=== PATIENT | female | born 1950 | race Caucasian/White ===

== ENCOUNTER 2023-01-15 20:05 | Inpatient (IN) | payer MEDICARE, SELFPAY ==
[2023-01-15 20:06] VITALS: BP 195/108; PULSE 59; RESP 18; TEMP 36.2; O2SAT 96; BMI 26.5
--- NOTE | 2023-01-15 20:08 | EKG12_ITS ---
Test Reason : FALL Blood Pressure : / mmHG Vent. Rate : 078 BPM Atrial Rate : 234 BPM P-R Int : 000 ms QRS Dur : 102 ms QT Int : 446 ms P-R-T Axes : 000 021 133 degrees QTc Int : 508 ms 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 with variable A-V block Left ventricular hypertrophy with repolarization abnormality ( Riley product ) Cannot rule out Septal infarct , age undetermined Abnormal ECG Confirmed by GABY SAVAGE, ALISA ([id number]), video tape editor JONY ALVAREZ ([id number]) on 01/18/2023 6:22:02 AM Referred By: Confirmed By:LIAM GRIFFIN MD
--- NOTE | 2023-01-15 20:16 | EDS_ITS ---
HPI HPI - Fall History of Present Illness Chief Complaint: Fall Informant: patient and EMS Narrative Narrative: Presents to the ED by EMS from home. Reported a fall around 6 PM. She hit her head on the stove. She got up felt dizzy had a couple more falls. Injury to her left hand. She is on warfarin for history of A-fib. History of three- vessel cardiac bypass this past April on aspirin. Denies loss of conscious. Facial pain. Denies nausea or vomiting. Denies recent cough. Denies urinary symptoms. She lives alone. Ambulates with a cane and does have a walker. She called her son who came and checked on her and EMS was contacted. States a week ago had a fall where she was able to get herself up. [facility] Medical History Afib Diabetes HTN (hypertension) Home Medications amiodarone 200 mg tablet mg 01/15/23 [History Last Taken Unknown] amlodipine 10 mg tablet 10 mg PO DAILY 01/15/23 [History Last Taken Unknown] atorvastatin 40 mg tablet 40 mg PO DAILY 01/15/23 [History Last Taken Unknown] carbamazepine 200 mg tablet 400 mg PO BID 01/15/23 [History Last Taken Unknown] clonidine HCl 0.3 mg tablet 0.3 mg PO TID 01/15/23 [History Last Taken 01/15/23] hydralazine 100 mg tablet 100 mg PO TID 01/15/23 [History Last Taken 01/15/23] labetalol 100 mg tablet 100 mg PO BID 01/15/23 [History Last Taken Unknown] ofloxacin 0.3 % eye drops 1 drp ophthalmic (eye) DAILY 01/15/23 [History Last Taken Unknown] valsartan 160 mg tablet 160 mg PO BID 01/15/23 [History Last Taken Unknown] warfarin 2.5 mg tablet mg 01/15/23 [History Last Taken Unknown] Allergy/AdvReac Type Severity Reaction Status Date / Time ibuprofen Allergy Rash Verified 01/15/23 20:14 naproxen [From Naprosyn] Allergy Rash Verified 01/15/23 20:14 codeine AdvReac Other Verified 01/15/23 20:14 Social History Smoking Status: Current every day smoker tobacco type: cigarettes ROS ROS ED Constitutional Constitutional ED: Denies chills, fever(s) or sweats Eyes Eyes: Denies change in vision ENT ENT ED: Reports other Details: Facial pain ; Denies dysphagia or sore throat Cardiovascular Cardiovascular: Denies chest pain, leg edema, palpitations or racing heartbeat Respiratory/Chest Respiratory/Chest: Denies cough, dyspnea or dyspnea on exertion Gastrointestinal Gastrointestinal: Denies abdominal pain, diarrhea, nausea or vomiting Genitourinary Genitourinary ED: Denies dysuria, hematuria or urinary frequency Musculoskeletal Musculoskeletal: Denies back pain, extremity pain or neck pain Integumentary Denies rash or wounds Neurologic Neurologic: Reports other Details: Dizziness ; Denies headache(s), paresthesias or weakness EXAM Physical Exam Const Vital Signs: 01/15/23 20:06 01/15/23 20:25 Temperature 97.1 F L Temperature Source Temporal Pulse Rate 59 L Respiratory Rate 18 Respiratory Effort Normal Blood Pressure 195/108 H Blood Pressure Mean 137 Pulse Ox 96 Oxygen Delivery Method Room Air Room Air Positive well nourished and well developed Constitutional Narrative: GCS 15. General Appearance ED: well developed and NAD HEENT Reports moist mucous membranes HEENT Narrative: Contusion right zygomatic area, there is dried blood inferior however there is no laceration there. No hemotympanums. normocephalic Eyes PERRL, EOMs intact bilaterally and conjunctivae normal Eyes Narrative: No nystagmus General Eye ED: Yes normal appearance of both eyes Neck full ROM, no lymphadenopathy and supple General: Negative for tenderness Chest Wall inspection of chest normal and palpation of chest normal Chest: Negative for tenderness Resp normal respiratory effort and normal air movement Effort and Inspection: symmetric chest movement; Negative for respiratory distress Cardio regular rate and no murmurs Rhythm: abnormal rhythm Peripheral Pulses: pulses 2+ throughout GI normal to inspection, nondistended, normoactive bowel sounds and non-tender Palpation: Negative for guarding or rebound tenderness present Back/Spine no CVA tenderness and no thoracic nor lumbar tenderness Back/Spine Narrative: No step-offs of the thoracic or lumbar 9. Extremity Extremity Narrative: Lower extremities: Negative logroll full range of motion lower extremities. Upper extremities full range of motion, left hand ring finger noted superficial skin tear proximal phalanx, there is no active bleeding. No deformities. General Extremety ED: Negative for edema or tenderness General Extremity: Negative for edema Neuro oriented x3, CN's II-XII intact bilaterally and no sensory deficits noted Sensorium / Orientation: awake and alert Skin no rashes or lesions noted and no wounds MDM MDM MDM Narrative Medical decision making narrative: Interventions / MDM: Differential diagnosis: Facial contusion, dizziness, elevated blood pressure Diagnosis considered but do not suspect: Intracranial hemorrhage, fractures however CT negative. My EKG interpretation: 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 rate of 78, no ST or T wave changes. Imaging independently reviewed and interpreted by myself: CT head/face/cervical spine: No fractures. Soft tissue swelling. No intracranial hemorrhage. Left hand 3 views: No fracture or radiopaque foreign bodies. External documents reviewed: N/A Test considered but not ordered:N/A ED course: Patient rate controlled a flutter, blood pressure elevated. Reported dizziness symptoms causing multiple falls. There is no focal deficits no nystagmus. She is on warfarin. Trauma scans head face and neck was ordered. X-ray left hand. Check labs and urine. 2200: Trauma scans negative. X-ray negative. Blood pressure remained elevated reevaluation systolic 205 history significant hypertension on medication she has had a renal artery stent. She is due for clonidine and hydralazine this evening. This was ordered orally for her. Urine was negative for both. With ambulation, patient unsteady per nursing. She has had multiple falls. She is currently not dizzy. 2225: With multiple falls unsteady gait, discussed with hospitalist Dr. Almanza for admission. Re-evaluation: stable Disposition discussed with patient/family/significant other: Case discussed with consulting clinician: N/A This note was generated with [employer] dictation software. It may contain incorrect words, spelling, and punctuation that were not noted in checking the note before signing. Lab Data Labs: Laboratory Results - last 24 hr 01/15/23 01/15/23 20:25 21:15 WBC 7.7 RBC 4.57 Hgb 14.6 Hct 42.2 MCV 92.3 MCH 31.9 MCHC 34.6 RDW Std Deviation 43.4 RDW Coeff of [place] 12.8 Plt Count 226 MPV 9.5 Immature Gran % (Auto) 0.600 Neut % (Auto) 75.9 H Lymph % (Auto) 16.2 L [place] % (Auto) 5.4 Eos % (Auto) 1.0 Baso % (Auto) 0.9 Absolute Neuts (auto) 5.9 Absolute Lymphs (auto) 1.25 Nucleated RBC % 0 PT 20.7 H INR 1.8 APTT 32.0 Sodium 137 Potassium 3.5 Chloride 102 Carbon Dioxide 32.0 Anion Gap 3 L BUN 12 Creatinine 0.72 Estim Creat Clear Calc 39.63 Est GFR (MDRD) Af Amer 103 Est GFR (MDRD) Non-Af 85 BUN/Creatinine Ratio 16.8 Glucose 126 H Calcium 8.8 Urine Color Yellow Urine Clarity Sl. Cloudy Urine pH 8.0 Ur Specific [place] 1.015 Urine Protein 15 H Urine Glucose (UA) Normal Urine Ketones Negative Urine Occult Blood 10 H Urine Nitrite Negative Urine Bilirubin Negative Urine Urobilinogen Normal Ur Leukocyte Esterase Negative Urine RBC 0-5 SEEN Urine WBC 0-5 SEEN Ur Squamous Epith Cells 0-5 SEEN Urine Bacteria 0 SEEN Urine Mucus 0 SEEN Radiography Diagnostic Testing: Clinical Impression(s) from Imaging Studies Brain CT 01/15/23 20:40 IMPRESSION: Chronic involutional changes of the brain. Electronically Signed: Taj Smith MD at 21:15 EST Reading Location ID and State: [employer] , Service support , Cervical Spine CT 01/15/23 20:40 IMPRESSION: No acute fracture or subluxation. Electronically Signed: Taj Smith MD at 21:31 EST Reading Location ID and State: [employer] , Service support , Facial/Sinus 01/15/23 20:40 IMPRESSION: Normal unenhanced CT of the facial bones. Acute right sphenoid sinusitis. Electronically Signed: Taj Smith MD at 21:20 EST Reading Location ID and State: [employer] [facility] [employer] Tel , Service support , Hand X-Ray 01/15/23 20:45 IMPRESSION: No acute fracture or dislocation Electronically Signed: Taj Smith MD at 21:34 EST Reading Location ID and State: [employer] / [employer] Tel , Service support , Discharge Plan Triage Chief Complaint: Fall ED Provider: Johnathon Richardson Dx/Rx/DC Orders Clinical Impression: Abrasion of left ring finger, 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, chronic, Unsteady gait, Chronic anticoagulation, Multiple falls, Contusion of face, Hypertension Prescriptions: No Action amiodarone 200 mg tablet amlodipine 10 mg tablet 10 mg PO DAILY atorvastatin 40 mg tablet 40 mg PO DAILY carbamazepine 200 mg tablet 400 mg PO BID clonidine HCl 0.3 mg tablet 0.3 mg PO TID Patient Comments: TOOK 2X TODAY hydralazine 100 mg tablet 100 mg PO TID Patient Comments: HAS TAKEN 2 DOSES TODAY labetalol 100 mg tablet 100 mg PO BID ofloxacin 0.3 % drops 1 drp ophthalmic (eye) DAILY Patient Comments: TO LEFT EYE valsartan 160 mg tablet 160 mg PO BID warfarin 2.5 mg tablet Patient Comments: DOES NOT KNOW DOSE. Primary Care Provider: Ian Burns Referrals: Ian Burns MD [Primary Care Provider] - Disposition Disposition: Acute Care Hospital [facility]
[2023-01-15 20:38] LABS: Absolute Lymphocyte Count 1.25 X10^3/uL (0.83-4.51); Absolute Neutrophil Count 5.9 X10^3/uL (2.0-7.7); Basophil# 0.07 X10^3/uL; Basophil% 0.9 % (0-1); Eosinophil# 0.08 X10^3/uL; Hematocrit 42.2 % (37-47); Hemoglobin 14.6 g/dL (12.0-15.0); Lymphocyte # 1.25 X10^3/ul (0.83-4.51); Lymphocyte % 16.2 % (19-41); Mean Corp Hgb Conc 34.6 g/dL (32-36); Mean Corpuscular Hgb 31.9 pg (27.0-32.0); Mean Corpuscular Volume 92.3 fL (81-99); Mean Platelet Vol. 9.5 fl (6.2-12.0); Monocyte# 0.42 X10^3/uL; Monocyte% 5.4 % (0-10); NRBC Flagged by Analyzer 0 % (0-5); Neutrophil # 5.86 X10^3/uL (2.7-7.7); Neutrophil % 75.9 % (47-70); Platelet Count 226 K/mm3 (150-450); RBC Distribution Width CV 12.8 % (11.6-14.6); RBC Distribution Width SD 43.4 fl (35.1-43.9); Red Blood Count 4.57 M/mm3 (4.2-5.4); White Blood Count 7.7 K/mm3 (4.4-11.0)
--- NOTE | 2023-01-15 20:40 | CT_ITS ---
STUDY: CT FACIAL BONES WITHOUT CONTRAST REASON FOR EXAM: Female, 72 years old. trauma RADIATION DOSAGE (If Supplied By Facility): CTDIvol = ( 29.38 ) mGy, DLP = ( 598.88 ) mGycm TECHNIQUE: The patient was scanned in a multi detector CT scanner. Sagittal and coronal images were reconstructed. Individualized dose optimization techniques were used for this CT. COMPARISON: None. FINDINGS: Normal soft tissue structures. Normal orbital bae and orbital contents. Normal nasal bones and anterior nasal spine. Normal facial bones. There is no demonstrated fracture. Air-fluid level in the right sphenoid sinus consistent with acute sinusitis. CT/Sinus/Facial Bone IMPRESSION: Normal unenhanced CT of the facial bones. Acute right sphenoid sinusitis. Electronically Signed: Taj Smith MD at 21:20 EST ,
--- NOTE | 2023-01-15 20:40 | CT_ITS ---
STUDY: CT BRAIN WITHOUT CONTRAST REASON FOR EXAM: Female, 72 years old. head injury RADIATION DOSAGE (If Supplied By Facility): CTDIvol = ( 44.99 ) mGy, DLP = ( 779.24 ) mGycm TECHNIQUE: Transaxial CT imaging of the brain was performed without administration of intravenous contrast material. Individualized dose optimization techniques were used for this CT. COMPARISON: No relevant priors. FINDINGS: Normal soft tissue structures. Normal calvarium. There is moderate cerebral atrophy with widening of the extra-axial spaces and ventricular dilatation. There are areas of decreased attenuation within the white matter tracts of the supratentorial brain, consistent with microvascular disease changes. There are small punctate calcifications of the basal ganglia which are seen in the aging brain as a normal variant. Chronic lacunar infarct in the head of the right caudate nucleus. Normal brainstem. Normal cerebellum. There is no intracranial hemorrhage. There are no findings of an acute ischemic infarction. Normal visualized paranasal sinuses. CT/Brain/Head without Contrast IMPRESSION: Chronic involutional changes of the brain. Electronically Signed: Taj Smith MD at 21:15 EST ,
--- NOTE | 2023-01-15 20:40 | CT_ITS ---
STUDY: CT CERVICAL SPINE WITHOUT CONTRAST REASON FOR EXAM: Female, 72 years old. polytrauma RADIATION DOSAGE (If Supplied By Facility): CTDIvol = ( 16.73 ) mGy, DLP = ( 322.69 ) mGycm TECHNIQUE: High resolution transaxial imaging was performed without contrast material. Sagittal and coronal images were reconstructed. Individualized dose optimization techniques were used for this CT. COMPARISON: None FINDINGS: Normal craniovertebral junction. Normal anterior atlantoaxial articulation. Normal odontoid process. There is straightening of the normal cervical lordosis. Normal vertebral bodies and posterior osseous elements. C2-3: Normal endplates. Normal disc height and morphology. Normal central canal and intervertebral neuroforamina. C3-4: Large right paracentral and foraminal disc protrusion produces moderate spinal stenosis and moderate right neural foraminal stenosis. C4-5: Normal endplates. Normal disc height and morphology. Normal central canal and intervertebral neuroforamina. C5-6: Mild broad disc osteophyte complex produces mild spinal stenosis. No neural foraminal stenosis. C6-7: Mild broad disc protrusion produces mild spinal stenosis. No neural foraminal stenosis. C7-T1: Normal endplates. Normal disc height and morphology. Normal central canal and intervertebral neuroforamina. Normal visualized soft tissue structures. CT/Spine Cervical without Contras IMPRESSION: No acute fracture or subluxation. Electronically Signed: Taj Smith MD at 21:31 EST ,
--- NOTE | 2023-01-15 20:45 | RAD_ITS ---
STUDY: X-RAY - LEFT HAND REASON FOR EXAM: Female, 72 years old. injury TECHNIQUE: 3 view(s) of the hand. COMPARISON: None. FINDINGS: Normal radiocarpal articulation. Normal distal radioulnar joint. Normal visualized carpal bones. Normal carpal articulations There is degenerative arthrosis of the carpometacarpal (CMC) articulation of the thumb. Normal second through fifth carpometacarpal joints. Normal metacarpi. Normal metacarpophalangeal joint of the thumb. Normal interphalangeal joint of the thumb. Normal proximal and distal phalanges of the thumb. Normal metacarpophalangeal joints of the second through fifth fingers. There is diffuse articular joint space narrowing of the proximal and distal interphalangeal joints of the second through fifth fingers, but without erosive changes or periarticular soft tissue swelling. Normal phalanges of the second through fifth fingers. The soft tissue structures are unremarkable. RAD/Hand Min 3 Views IMPRESSION: No acute fracture or dislocation Electronically Signed: Taj Smith MD at 21:34 EST ,
[2023-01-15 20:51] LABS: Anion Gap 3 (5-15); BUN 12 mg/dL (7-18); BUN/Creat Ratio 16.8 RATIO (10-20); Calcium,Total 8.8 mg/dL (8.5-10.1); Chloride 102 mmol/L (98-107); Creatinine, Serum 0.72 mg/dL (0.55-1.02); EST Glomerular Filtration Rate 85 mL/min (>60); Est Glom Filt Rate - Afr Amer 103 mL/min (>60); Estimated Creatinine Clearance 39.63 ml/min; Glucose 126 mg/dL (74-106); Potassium 3.5 mmol/L (3.5-5.1); Sodium Level 137 mmol/L (136-145)
[2023-01-15 21:07] LABS: International Normalized Ratio 1.8; Prothrombin Time (Protime)PT. 20.7 SECONDS (11.7-14.9)
[2023-01-15] MEDS: 0.9% Normal Saline (500mL Bag) 500 ML 999 ML IV (21:19)
[2023-01-15] MEDS: Acetaminophen 500 MG Tablet 1000 MG PO (21:19)
[2023-01-15 21:31] LABS: Bacteria 0 SEEN /hpf (None Seen); Mucous, Urine 0 SEEN /hpf (<or=2+)
[2023-01-15 21:51] LABS: Color, Urine Yellow (Yellow); Glucose, Dipstick Normal (Normal); Ketone-Dipstick Negative (Negative); Leukocyte Esterase-Dipstick Negative /ul (Negative); Nitrite-Dipstick Negative (Negative); Occult Blood-Urine 10 /ul (Negative); Protein-Dipstick 15 mg/dl (Negative); Specific Gravity, Urine 1.015 (1.002-1.030); Urine Bilirubin Dipstick Negative (Negative); Urine Clarity Sl. Cloudy (Clear); Urine Urobilinogen Normal (Normal)
[2023-01-15 22:04] LABS: Red Blood Cells-Urine 0-5 SEEN /hpf (0-5); Squamous Epithelial Cells - UA 0-5 SEEN /hpf (5-10); White Blood Cells 0-5 SEEN /hpf (0-5)
[2023-01-15 22:06] VITALS: BP 211/154; PULSE 88; PULSE 93; RESP 18; RESP 21; O2SAT 96; O2SAT 97
[2023-01-15] MEDS: hydrALAZINE 50 MG Tablet 100 MG PO (22:15)
[2023-01-15] MEDS: Clonidine HCl 0.1 MG, Clonidine HCl 0.2 MG 0.3 MG PO (22:15)
--- NOTE | 2023-01-15 22:37 | HP.PCM.HOS_ITS ---
HPI - General General Date of Admission: 01/15/23 Date of Service: 01/15/23 Chief Complaint: Recurrent falls HPI Narrative MARK MARTIN, is a 72 F with past medical history of A-fib on warfarin, hypertension, coronary artery disease s/p recent CABG, renal artery stenosis s/p stenting, seizure disorder presented to the ED following a fall around 6 PM. She lives by herself and has been having repeated episodes of falling in the last few days. There were no preceding symptoms, does not remember having blackouts or sensation of palpitations before. No prodromal symptoms no post fall confusion. She ambulates with a cane but does have a walker. Her home medications include amiodarone, atorvastatin, carbamazepine, clonidine, hydralazine, labetalol, valsartan, warfarin 2.5 mg. Her blood pressure at the time of presentation was 195/108, pulse rate was 59 EKG was suggestive of atrial flutter. At home she continues to smoke half to 1 pack of cigarettes daily. Labs in the ED WBC 7.7, hemoglobin 14.6, platelet 226, INR 1.8, creatinine 0.7, CT brain showed chronic involutional changes no acute changes. No fracture or subluxation on cervical spine CT. CT of facial bones showed acute right sphenoid sinusitis. Interval events After control her blood pressure in the ED, she was able to ambulate better, s ubjectively her dizziness had improved remarkably. [facility] Medical History (Updated 01/15/23 @ 23:59 by Whitley Johnson) Afib Anemia 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 COPD (chronic obstructive pulmonary disease) Deafness in left ear Depression Diabetes GERD (gastroesophageal reflux disease) HTN (hypertension) Irregular heart beat Myocardial infarct Rheumatoid arthritis Right renal artery stenosis Seizures Stroke/cerebrovascular accident Home Medications amiodarone 200 mg tablet mg 01/15/23 [History Last Taken Unknown] amlodipine 10 mg tablet 10 mg PO DAILY 01/15/23 [History Last Taken Unknown] atorvastatin 40 mg tablet 40 mg PO DAILY 01/15/23 [History Last Taken Unknown] carbamazepine 200 mg tablet 400 mg PO BID 01/15/23 [History Last Taken Unknown] clonidine HCl 0.3 mg tablet 0.3 mg PO TID 01/15/23 [History Last Taken 01/15/23] hydralazine 100 mg tablet 100 mg PO TID 01/15/23 [History Last Taken 01/15/23] labetalol 100 mg tablet 100 mg PO BID 01/15/23 [History Last Taken Unknown] ofloxacin 0.3 % eye drops 1 drp ophthalmic (eye) DAILY 01/15/23 [History Last Taken Unknown] valsartan 160 mg tablet 160 mg PO BID 01/15/23 [History Last Taken Unknown] warfarin 2.5 mg tablet mg 01/15/23 [History Last Taken Unknown] Allergy/AdvReac Type Severity Reaction Status Date / Time ibuprofen Allergy Rash Verified 01/15/23 20:14 naproxen [From Naprosyn] Allergy Rash Verified 01/15/23 20:14 codeine AdvReac Other Verified 01/15/23 20:14 Surgical History (Updated 01/16/23 @ 00:04 by Whitley Johnson) Aortic valve replaced Hx of CABG Social History Smoking Status: Current every day smoker tobacco type: cigarettes Vital Signs Vital Signs Vital Signs: 01/15/23 20:06 01/15/23 20:25 01/15/23 22:06 Temperature 97.1 F L Temperature Source Temporal Pulse Rate 59 L 93 Respiratory Rate 18 21 H Respiratory Effort Normal Blood Pressure 195/108 H Blood Pressure Mean 137 Pulse Ox 96 97 Oxygen Delivery Method Room Air Room Air Room Air 01/15/23 22:06 Temperature Temperature Source Pulse Rate 88 Respiratory Rate 18 Respiratory Effort Blood Pressure 211/154 H Blood Pressure Mean 173 Pulse Ox 96 Oxygen Delivery Method Weight Weight: 145 lb 1.027 oz Body Mass Index (BMI) 26.5 Physical Exam Const alert and oriented x3 HEENT normocephalic Eyes PERRL Neck no lymphadenopathy Resp normal respiratory effort Cardio S1 normal heart sound, S2 normal heart sound and no murmurs GI normal to inspection, nondistended, normoactive bowel sounds Extremity normal to inspection Neuro oriented x3, CN's II-XII intact bilaterally, moves all extremities and no focal motor deficits Psych affect normal Results Medical Records Data Attestation: I reviewed the patient's medical records Lab / Micro Data 01/15/23 20:25 01/15/23 20:25 Labs: Laboratory Results - last 24 hr 01/15/23 20:25: WBC 7.7, RBC 4.57, Hgb 14.6, Hct 42.2, MCV 92.3, MCH 31.9, MCHC 34.6, RDW Std Deviation 43.4, RDW Coeff of [place] 12.8, Plt Count 226, MPV 9.5, Immature Gran % (Auto) 0.600, Neut % (Auto) 75.9 H, Lymph % (Auto) 16.2 L, [place] % (Auto) 5.4, Eos % (Auto) 1.0, Baso % (Auto) 0.9, Absolute Neuts (auto) 5.9, Absolute Lymphs (auto) 1.25, Nucleated RBC % 0, PT 20.7 H, INR 1.8, APTT 32.0, Sodium 137, Potassium 3.5, Chloride 102, Carbon Dioxide 32.0, Anion Gap 3 L, BUN 12, Creatinine 0.72, Estim Creat Clear Calc 39.63, Est GFR (MDRD) Af Amer 103, Est GFR (MDRD) Non-Af 85, BUN/Creatinine Ratio 16.8, Glucose 126 H, Calcium 8.8 01/15/23 21:15: Urine Color Yellow, Urine Clarity Sl. Cloudy, Urine pH 8.0, Ur Specific [place] 1.015, Urine Protein 15 H, Urine Glucose (UA) Normal, Urine Ket ones Negative, Urine Occult Blood 10 H, Urine Nitrite Negative, Urine Bilirubin Negative, Urine Urobilinogen Normal, Ur Leukocyte Esterase Negative, Urine RBC 0-5 SEEN, Urine WBC 0-5 SEEN, Ur Squamous Epith Cells 0-5 SEEN, Urine Bacteria 0 SEEN, Urine Mucus 0 SEEN Imagaing Radiology Impression Brain CT 01/15/23 20:40 IMPRESSION: Chronic involutional changes of the brain. Electronically Signed: Taj Smith MD at 21:15 EST Reading Location ID and State: [employer] [facility] [employer] , Service support , Cervical Spine CT 01/15/23 20:40 IMPRESSION: No acute fracture or subluxation. Electronically Signed: Taj Smith MD at 21:31 EST Reading Location ID and State: [id number] / [employer] , Service support , Facial/Sinus 01/15/23 20:40 IMPRESSION: Normal unenhanced CT of the facial bones. Acute right sphenoid sinusitis. Electronically Signed: Taj Smith MD at 21:20 EST , Hand X-Ray 01/15/23 20:45 IMPRESSION: No acute fracture or dislocation Electronically Signed: Taj Smith MD at 21:34 EST , Assessment & Plan Assessment/Plan (1) Hypertension: PLAN: Plan Presents with concerns of recurrent falls and was found to have systolic pressures greater than 200. She has a history of renal artery stenosis and also recently underwent CABG for triple-vessel disease. She continues to smoke about half to 1 pack a day. A likely reason for her dizziness could be hypertensive emergency given her blood pressures. There was improvement in her symptoms while in the ED as her blood pressure was better controlled. 1. Hypertensive emergency: -Continue amlodipine, clonidine, hydralazine, labetalol. -Renal artery Doppler -Repeat echocardiogram -Will consider adding diuretics but given the dizziness we will hold off for now. 2. Recurrent falls -Physical therapy, Occupational Therapy evaluation -Better blood pressure control -High fall risk especially orthostatic symptoms can be present given multiple antihypertensive medications 3. Atrial fibrillation: Currently rate controlled -Continue warfarin 2.5 mg p.o. daily, INR presently at goal -Continue home amiodarone 200 mg daily 4. Right sphenoid sinusitis: No symptoms at present, continue to monitor 5. Dyslipidemia: Continue atorvastatin 6. Seizure disorder: On carbamazepine, last episode of seizure was about 20 years back. She has been on carbamazepine for few decades now, unlikely that her dizziness is due to adverse events Charges/Coding Visit Charges Inpatient E&M: 95446 Init Hosp L2
[2023-01-15 23:13] VITALS: BP 154/117
[2023-01-15 23:40] VITALS: BMI 24.5
[2023-01-16] VITALS (8 sets, daily range): BP systolic 149–187; BP diastolic 82–106; PULSE 52–78; RESP 15–18; TEMP 36.3–36.8; O2SAT 96–98
[2023-01-16] MEDS: Labetalol 100 MG Tablet PO ×2 (00:14→21:24)
--- NOTE | 2023-01-16 01:05 | RDU_ITS ---
Reason For Study: HTN Right Renal Artery Left Renal Artery Right renal artery ostium Left renal artery ostium 110.2/31.2 119.8/32.0 RSV/EDV. PSV/EDV. Right renal artery proximal Left renal artery proximal PSV/EDV 130.8/29.9 PSV/EDV. 99.2/31.2 . Right renal artery mid 82.5/23.3 Left renal artery mid 75.1/13.6 PSV/EDV. PSV/EDV . Right renal artery distal 97.9/29.9 Left renal artery distal 108.0/24.6 PSV/EDV. PSV/EDV. Right RAR 2.6. Left RAR 2.2. Right Renal Parenchyma Left Renal Parenchyma Upper Pole Medula 24.3/7.8 PSV/EDV. Left upper pole medulla 28.5/8.2 Right upper pole medulla EDR 0.30 . PSV/EDV . Right upper pole medulla R.I. Left upper pole medulla EDR 0.30 . 0.68 . Left upper pole medulla R.I. 0.71 . Upper Foreign Cortx 27.0/7.3 PSV/EDV. UP Cortex 16.4/6.2 PSV/EDV. Right upper pole cortex EDR 0.30 . Left upper pole cortex EDR 0.40 . Right upper pole cortex R.I. 0.73 . Left upper pole cortex R.I. 0.66 . Right lower Pole medulla 20.4/8.4 Left lower Pole medulla 23.6/7.1 PSV/EDV . PSV/EDV . Right lower pole medulla EDR 0.40 . Left lower pole medulla EDR 0.30 . Right lower pole medulla R.I. Left lower pole medulla R.I. 0.70 . 0.59 . Lower Pole Cortx 14.8/5.4 PSV/EDV. Lower Pole Cortex 19.9/8.9 PSV/EDV. Left lower pole cortex EDR 0.40 . Right lower pole cortex EDR 0.40 . Left lower pole cortex R.I. 0.63 . Right lower pole cortex R.I. 0.55 . Left Renal Hilar Right Renal Hilar LT Hilar avg 45.7/12.4 PSV/EDV . Right Hilar avg 54.8/16.4 PSV/EDV. Left hilar acceleration time 40 Right hilar acceleration time 30 m/sec. m/sec. Left Renal Dimensions Right Renal Dimensions Left kidney size 10.95 cm . Right kidney size 10.50 cm . Left cortical dimension 1.29 cm . Right cortical dimension 1.29 cm . Aorta Proximal abdominal aorta 2.36 x 2.25 cm . Proximal abdominal aorta peak systolic velocity is 50.1 cm/sec . Distal abdominal aorta 2.39 x 2.32 cm . Distal abdominal aorta peak systolic velocity is 41.3 cm/sec . Procedures Duplex with Color and Pulsed Wave Doppler evaluation of Renal Vessels. VL/Renal Artery Duplex Ultrasound Interpretation Summary Maximal aortic diameter is 2.39 x 2.32 cm diameter distally which is normal. Less than 60% stenosis bilateral renal arteries Maintained right renal length of 10.5 cm Maintained left renal length of 10.95 cm Ordering Physician: Eladio Almanza Referring Physician: Ian Burns Performed By: Darrius Hua RVT
--- NOTE | 2023-01-16 01:06 | ECHOD_ITS ---
Reason For Study: AFIB/FLUTTER Procedure This was a 2D Doppler, Color Flow transthoracic echocardiogram. Exam performed portable in patient room. Left Ventricle Normal LV size. The estimated ejection fraction is 65 %. No evidence for diastolic dysfunction. No regional wall motion abnormalities noted. Right Ventricle Normal RV size. Normal systolic function. Atria The left atrium is mildly enlarged. Normal right atrium. No doppler evidence for ASD. Mitral Valve There is moderate mitral annular calcification. There is no mitral valve stenosis. No mitral valve insufficiency. Tricuspid Valve There is no tricuspid stenosis. Mild tricuspid valve insufficiency. Pulmonary artery systolic pressure is 30 mmHg. Aortic Valve The aortic valve is not well visualized. There is no aortic stenosis. No aortic valve insufficiency. Pulmonic Valve There is no pulmonic valvular stenosis. No pulmonic valve insufficiency. Great Vessels Normal aortic root. Pericardium/Pleural No pericardial effusion. MMode/2D Measurements & Calculations LVIDd: 4.5 cm IVSd: 1.5 cm Ao root diam: 3.5 cm LVIDs: 3.1 cm LVPWd: 1.2 cm RVDd: 3.0 cm FS: 30.9 % LAV(MOD-bp): 81.1 ml LVAd ap4: 18.8 cm2 LVAd ap2: 16.1 cm2 LAV(MOD-bp) Indexed: 36.1 ml/m2 LVLd ap4: 7.2 cm LVLd ap2: 7.1 cm LAV(MOD-sp2): 93.5 ml EDV(MOD-sp4): 41.9 ml EDV(MOD-sp2): 30.1 ml LAV(MOD-sp4): 58.5 ml EDV(sp4-el): 41.8 ml EDV(sp2-el): 30.9 ml LVAs ap4: 10.7 cm2 LVAs ap2: 8.9 cm2 LVLs ap4: 5.3 cm LVLs ap2: 6.0 cm ESV(MOD-sp4): 17.2 ml ESV(MOD-sp2): 12.2 ml ESV(sp4-el): 18.0 ml ESV(sp2-el): 11.3 ml EF(MOD-sp4): 58.8 % EF(MOD-sp2): 59.5 % EF(sp4-el): 56.9 % SV(MOD-sp4): 24.6 ml SV(MOD-sp2): 17.9 ml SV(sp4-el): 23.8 ml LA dimension(2D): 4.4 cm LA A4 area: 19.4 cm2 RA A4 area: 14.3 cm2 TAPSE: 1.8 cm Doppler Measurements & Calculations MV E max jem: 137.5 cm/sec Lat Peak E' Jem: 5.3 cm/sec Med Peak E' Jem: 5.4 cm/sec E/E' lat: 26.1 E/E' med: 25.4 MV V2 max: 172.2 cm/sec Ao V2 max: 224.1 cm/sec LV V1 max: 140.5 cm/sec MV max P.9 mmHg Ao max P.1 mmHg LV V1 max P.9 mmHg MV V2 mean: 78.3 cm/sec Ao V2 mean: 149.0 cm/sec LV V1 mean P.3 mmHg MV mean P.1 mmHg Ao mean P.3 mmHg LV V1 mean: 96.8 cm/sec MV V2 VTI: 47.1 cm Ao V2 VTI: 37.9 cm LV V1 VTI: 26.9 cm AV (velocity ratio): 0.71 PA V2 max: 92.1 cm/sec TR max jem: 253.0 cm/sec PA V2 mean: 64.5 cm/sec TR max P.6 mmHg ECHO/Echo Complete Interpretation Summary The estimated ejection fraction is 65 %. No evidence for diastolic dysfunction. The left atrium is mildly enlarged. Ordering Physician: Eladio Almanza Referring Physician: Ian Burns Performed By: Sharlene Puente RDCS, RVT
[2023-01-16 06:04] LABS: Absolute Lymphocyte Count 1.93 X10^3/uL (0.83-4.51); Absolute Neutrophil Count 3.8 X10^3/uL (2.0-7.7); Basophil# 0.08 X10^3/uL; Basophil% 1.2 % (0-1); Eosinophil# 0.07 X10^3/uL; Eosinophils% 1.1 % (0-5); Hematocrit 41.3 % (37-47); Hemoglobin 13.7 g/dL (12.0-15.0); Lymphocyte # 1.93 X10^3/ul (0.83-4.51); Lymphocyte % 29.8 % (19-41); Mean Corp Hgb Conc 33.2 g/dL (32-36); Mean Corpuscular Volume 93.4 fL (81-99); Mean Platelet Vol. 10.1 fl (6.2-12.0); Monocyte# 0.58 X10^3/uL; NRBC Flagged by Analyzer 0 % (0-5); Neutrophil # 3.78 X10^3/uL (2.7-7.7); Neutrophil % 58.4 % (47-70); Platelet Count 225 K/mm3 (150-450); RBC Distribution Width CV 13.1 % (11.6-14.6); RBC Distribution Width SD 44.7 fl (35.1-43.9); Red Blood Count 4.42 M/mm3 (4.2-5.4); White Blood Count 6.5 K/mm3 (4.4-11.0)
[2023-01-16] MEDS: cloNIDine HCl 0.1 MG Tablet 0.3 MG PO ×3 (06:08→21:24)
[2023-01-16] MEDS: hydrALAZINE 50 MG Tablet 100 MG PO ×3 (06:08→21:24)
[2023-01-16 06:11] LABS: Prothrombin Time (Protime)PT. 22.7 SECONDS (11.7-14.9)
[2023-01-16 06:41] LABS: ALB/GLOB Ratio 1.1 RATIO (0.9-2.4); AST(SGOT) 16 U/L (15-37); Alanine Aminotransfer ALT/SGPT 18 U/L (13-56); Albumin, Serum 3.2 g/dL (3.2-5.0); Alkaline Phosphatase 88 U/L (45-117); Anion Gap 5 (5-15); BUN 11 mg/dL (7-18); BUN/Creat Ratio 18.2 RATIO (10-20); Bilirubin, Direct 0.08 mg/dL (0.00-0.30); Calcium,Total 8.2 mg/dL (8.5-10.1); Chloride 105 mmol/L (98-107); EST Glomerular Filtration Rate 103 mL/min (>60); Est Glom Filt Rate - Afr Amer 125 mL/min (>60); Estimated Creatinine Clearance 39.63 ml/min; Glucose 120 mg/dL (74-106); Magnesium 2.2 mg/dL (1.6-2.6); Phosphorus 3.1 mg/dL (2.5-4.9); Potassium 3.4 mmol/L (3.5-5.1); Protein, Total 6.2 g/dL (6.4-8.2); Sodium Level 139 mmol/L (136-145); Thyroid Stim Hormone (TSH) 0.69 uIU/mL (0.358-3.74)
[2023-01-16] MEDS: carBAMazepine 200 MG Tablet 400 MG PO ×2 (08:25→16:56)
[2023-01-16] MEDS: Amiodarone 200 MG Tablet PO ×2 (08:25→16:56)
[2023-01-16] MEDS: amLODIPine 10 MG Tablet PO (08:25)
[2023-01-16] MEDS: Losartan Potassium 100 MG Tablet PO (08:25)
[2023-01-16] MEDS: Potassium Chloride Oral Tablet 20 MEQ PO (13:44)
[2023-01-16] MEDS: Acetaminophen 325 MG Tablet 650 MG PO (13:50)
--- NOTE | 2023-01-16 14:13 | NURSING ---
THIS NURSE SPOKE W/PTS SON, RICKY. HE STATED THAT HE COULD BRING PT TO HIS HOUSE BUT HE HAS TO WORK IN THE AM AND IS GONE FOR 9-12HRS. HE FEELS THEY NEED A HEALTH DRY TALC RACKER TO STAY WITH HER. HE IS VERY WORRIED ABOUT HER FALLING AGAIN BECAUSE THE LAST TIME SHE FELL, SHE DID NOT EVEN TELL HIM THAT SHE WAS ON THE FLOOR AND COULD NOT GET UP. 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 WHAT IF IT HAD CAUGHT FIRE, SHE WAS UNABLE TO GET UP. THIS NURSE SPOKE W/DR WARD WELL AND IT WAS DECIDED THAT PT WOULD STAY TONIGHT AND HAVE CM/SW GET INVOLVED.
--- NOTE | 2023-01-16 15:52 | PCM.PN.HOSP ---
Reason for Visit Reason for Visit: Diagnoses Essential (primary) hypertension (01/15/23) Subjective Subjective Patient was seen and examined today, she told this examiner she felt she could go home today but there was not a support mechanism for her at home currently, her son was contacted and he states that he will be at work most of the day tomorrow. Patient ambulated well with physical therapy today, I have decided however that group social worker should meet with the patient tomorrow and set up home health and see if she has any other needs since she has had several falls recently at home. Objective Data Objective Data Vital Signs: Vital Signs Temp Pulse Resp BP Pulse Ox O2 Del Method 97.4 F L 78 16 149/88 H 98 Room Air 01/16/23 15:00 01/16/23 15:00 01/16/23 15:00 01/16/23 15:00 01/16/23 15:00 01/16/23 15:00 Oxygen Delivery Method Room Air Weight: 60.7 kg Body Mass Index (BMI) 24.5 Intake & Output: Intake and Output for Last 24 Hours 01/14/23 01/15/23 01/16/23 23:59 23:59 23:59 Intake Total 500 / 500 600 / 600 Balance 500 / 500 600 / 600 Lab / Micro Data 01/16/23 04:56 01/16/23 04:56 Labs: Laboratory Results - last 24 hr 01/15/23 20:25: WBC 7.7, RBC 4.57, Hgb 14.6, Hct 42.2, MCV 92.3, MCH 31.9, MCHC 34.6, RDW Std Deviation 43.4, RDW Coeff of Geena 12.8, Plt Count 226, MPV 9.5, Immature Gran % (Auto) 0.600, Neut % (Auto) 75.9 H, Lymph % (Auto) 16.2 L, Cedar % (Auto) 5.4, Eos % (Auto) 1.0, Baso % (Auto) 0.9, Absolute Neuts (auto) 5.9, Absolute Lymphs (auto) 1.25, Nucleated RBC % 0, PT 20.7 H, INR 1.8, APTT 32.0, Sodium 137, Potassium 3.5, Chloride 102, Carbon Dioxide 32.0, Anion Gap 3 L, BUN 12, Creatinine 0.72, Estim Creat Clear Calc 39.63, Est GFR (MDRD) Af Amer 103, Est GFR (MDRD) Non-Af 85, BUN/Creatinine Ratio 16.8, Glucose 126 H, Calcium 8.8 01/15/23 21:15: Urine Color Yellow, Urine Clarity Sl. Cloudy, Urine pH 8.0, Ur Specific [place] 1.015, Urine Protein 15 H, Urine Glucose (UA) Normal, Urine Ketones Negative, Urine Occult Blood 10 H, Urine Nitrite Negative, Urine Bilirubin Negative, Urine Urobilinogen Normal, Ur Leukocyte Esterase Negative, Urine RBC 0-5 SEEN, Urine WBC 0-5 SEEN, Ur Squamous Epith Cells 0-5 SEEN, Urine Bacteria 0 SEEN, Urine Mucus 0 SEEN 01/16/23 04:56: WBC 6.5, RBC 4.42, Hgb 13.7, Hct 41.3, MCV 93.4, MCH 31.0, MCHC 33.2, RDW Std Deviation 44.7 H, RDW Coeff of Geena 13.1, Plt Count 225, MPV 10.1, Immature Gran % (Auto) 0.500, Neut % (Auto) 58.4, Lymph % (Auto) 29.8, Cedar % (Auto) 9.0, Eos % (Auto) 1.1, Baso % (Auto) 1.2 H, Absolute Neuts (auto) 3.8, Absolute Lymphs (auto) 1.93, Nucleated RBC % 0, PT 22.7 H, INR 2.0, Sodium 139, Potassium 3.4 L, Chloride 105, Carbon Dioxide 29.0, Anion Gap 5, BUN 11, Creatinine 0.60, Estim Creat Clear Calc 39.63, Est GFR (MDRD) Af Amer 125, Est GFR (MDRD) Non-Af 103, BUN/Creatinine Ratio 18.2, Glucose 120 H, Calcium 8.2 L, Phosphorus 3.1, Magnesium 2.2, Total Bilirubin 0.20, Direct Bilirubin 0.08, AST 16, ALT 18, Alkaline Phosphatase 88, Total Protein 6.2 L, Albumin 3.2, Globulin 3.0, Albumin/Globulin Ratio 1.1, TSH 0.69 Radiography Diagnostic Testing: Radiology Impression Brain CT 01/15/23 20:40 IMPRESSION: Chronic involutional changes of the brain. Electronically Signed: Taj Smith MD at 21:15 EST Reading Location ID and State: [place] / [employer] , Service support , Cervical Spine CT 01/15/23 20:40 IMPRESSION: No acute fracture or subluxation. Electronically Signed: Taj Smith MD at 21:31 EST Reading Location ID and State: [place] / [employer] [employer] , Service support , Facial/Sinus 01/15/23 20:40 IMPRESSION: Normal unenhanced CT of the facial bones. Acute right sphenoid sinusitis. Electronically Signed: Taj Smith MD at 21:20 EST Reading Location ID and State: [place] / [employer] [employer] , Service support , Hand X-Ray 01/15/23 20:45 IMPRESSION: No acute fracture or dislocation Electronically Signed: Taj Smith MD at 21:34 EST Reading Location ID and State: [place] / [employer] , Service support , Physical Exam Const alert, oriented x3 and no apparent distress General Appearance: cooperative, well kempt and well developed Orientation / Consciousness: awake, oriented to person, oriented to place and oriented to time HEENT normocephalic and moist oral mucous membranes HEENT Narrative: Patient has an ecchymotic area around her right eye Eyes PERRL and EOMs intact bilaterally Neck supple, no JVD, thyroid normal and no carotid bruits General: trachea midline Resp normal respiratory effort, no retractions, no use of accessory muscles and clear to auscultation bilaterally Auscultation: Negative for rales, rhonchi or wheezes Cardio regular rate, regular rhythm, S1 normal heart sound, S2 normal heart sound, no murmurs, no rub and no gallops GI normal to inspection, nondistended, normoactive bowel sounds, soft to palpation, non-tender and non-distended Extremity no clubbing, cyanosis or edema Skin no rashes or lesions noted General Skin Exam: no breakdown Neuro oriented x3, CN's II-XII intact bilaterally, moves all extremities, no focal motor deficits and no sensory deficits noted Sensorium / Orientation: awake and alert Speech: speech normal Psych affect normal Assessment & Plan Assessment/Plan (1) Unsteady gait: PLAN: Plan 1. Generalized weakness secondary to multiple medical problems and deconditioning-PT and OT will continue to work with patient, group social worker will need to set up home health for the patient and may have to provide information for the hiring of nurses aides for the patient. #2 essential hypertension-I will review the patient's home medications #3 paroxysmal atrial fibrillation-patient currently is on warfarin, patient's INR today was 2 #4 chronic anticoagulation secondary to chronic use of warfarin for atrial fibrillation #5 increased risk of thromboembolism secondary to chronic atrial fibrillation-patient is on warfarin I do not feel the patient had hypertensive emergency Total clinical time spent by myself addressing the patient's medical issues, reviewing all of her data, and collaborating with patient's care team: 35 minutes Charges/Coding Visit Charges Inpatient E&M: 43420 Subs Hosp L2
[2023-01-16] MEDS: Atorvastatin Calcium 40 MG Tablet PO (21:24)
[2023-01-17] VITALS (8 sets, daily range): BP systolic 157–171; BP diastolic 88–115; PULSE 61–66; RESP 16–18; TEMP 36.4–36.8; O2SAT 94–99
[2023-01-17] MEDS: hydrALAZINE 50 MG Tablet 100 MG PO ×3 (04:24→21:55)
[2023-01-17] MEDS: cloNIDine HCl 0.1 MG Tablet 0.3 MG PO ×3 (04:24→21:56)
[2023-01-17] MEDS: Amiodarone 200 MG Tablet PO ×2 (07:54→16:57)
[2023-01-17] MEDS: amLODIPine 10 MG Tablet PO (07:54)
[2023-01-17] MEDS: Labetalol 100 MG Tablet PO ×2 (07:55→21:56)
[2023-01-17] MEDS: Losartan Potassium 100 MG Tablet PO (07:55)
[2023-01-17] MEDS: carBAMazepine 200 MG Tablet 400 MG PO ×2 (07:55→16:59)
[2023-01-17 08:20] LABS: International Normalized Ratio 1.8; Prothrombin Time (Protime)PT. 21.4 SECONDS (11.7-14.9)
--- NOTE | 2023-01-17 08:21 | NURSING ---
called PCP's office requested med list
--- NOTE | 2023-01-17 09:22 | NURSING ---
attempt to call Dr Leary who pt states is her still runner in [place]-no listing
--- NOTE | 2023-01-17 10:24 | CASEMGMT ---
Discharge Planning A list of?HH providers including quality and resource use data and consistent with the patient's preferred geographic region, medical needs, and insurance network was created in [employer] Guide.? This list was provided to the RN FEDERICO. Kellie Camejo, Discharge Planning Asst.
--- NOTE | 2023-01-17 10:51 | CASEMGMT ---
Addendum entered by Eleni Bennett 01/17/23 11:36: TC to pt son Monty. He states he was contacted yesterday and was told pt was told she cannot be alone. Noted this in the OT notes from yesterday. Pt son states he has no one who can stay with pt. He asks if she can get an aide to come. Made him aware after discussing with SW that pt would need to apply for Passport and that is not a quick process that would be able to happen for this hospital stay. He states he wants pt to go to a SNF. He is aware that likely her [employer] will not approve this as pt is ambulating well and therapy has recommended HHC vs oupt therapy. He asks if pt can go under her Jodie ROJAS is checking on this. He states he has a half brother on disability that lives in [facility]. He will check with him to see if he is able to come and stay with pt until passport starts if pt cannot go to a SNF. He is aware this can take some time. He does state that he is working on medic alert through [employer]. He is aware that the RN FEDERICO or MARGO will be in contact with him. Original Note: RN FEDERICO Assessment: Face to Face with pt for initial transition planning/care coordination assessment. GONZALO CABALLERO introduced self and role at [facility], pt voices understanding and consents to assessment. Pt is A&O x4 and answers all questions appropriately at this time. Pt sitting up in chair in no distress. Care providers, pharmacy, and demographics verified/updated. Admitting Dx: recurrent falls PCP:Chelita Beltran NP Specialists:rina Leary Preferred Pharmacy: [facility] Insurance: [employer] JESSE, BOB Crossover Prescription Benefit: yes LNOK: Monty Eastman, son Living Arrangements: Pt lives alone in a mobile home with 4 steps to enter and a rail on both sides. Pt reports she was I in ADL's prior to this hospitalization but has been falling often at home. Pt denies concerns at home. Transportation: Pt does not drive d/t cataracts. Pt friend, neighbor or family transport her to medical appts. DME:shower bench, cane, rollator HHC/SNF: [facility], [facility] Pt states no concerns with going home at time of dc. Pt is agreeable to HHC. Provided list of DISPATCHER SERVICE CHIEF created by dc payroll assistant. Pt chose 1. [facility] 2. [facility]. Pt states her son does not want her to go home. Pt asks RN CM to call son. She states he is working on getting her a medic alert button. Pt states no further concerns/needs. CM to follow. Advised pt to ask CM if any further question/concerns/needs arise, voices understanding. Pt Goal: Home with HHC Plan: TBD pending discussion with son
--- NOTE | 2023-01-17 11:57 | CASEMGMT ---
Discharge Planning A list of?SNF providers including quality and resource use data and consistent with the patient's preferred geographic region, medical needs, and insurance network was created in [employer]Port Guide.? This list was provided to the SW. Kellie Camejo Discharge Planning Asst.
--- NOTE | 2023-01-17 12:30 | PN_ITS ---
Subjective Subjective Patient seen and examined. SHe had no active complaints. Review of systems is otherwise negative. She is awaiting placement. Objective Data Objective Data Vital Signs: Vital Signs Temp Pulse Resp BP Pulse Ox O2 Del Method 97.9 F 66 18 165/115 H 96 Room Air 01/17/23 08:00 01/17/23 08:00 01/17/23 08:00 01/17/23 08:00 01/17/23 08:00 01/17/23 08:00 Oxygen Delivery Method Room Air Weight: 133 lb 13.129 oz Body Mass Index (BMI) 24.5 Intake & Output: Intake and Output for Last 24 Hours 01/15/23 01/16/23 01/17/23 23:59 23:59 23:59 Intake Total 500 / 500 1100 / 1100 Balance 500 / 500 1100 / 1100 Lab / Micro Data 01/16/23 04:56 01/16/23 04:56 Labs: Laboratory Results - last 24 hr 01/17/23 07:23: PT 21.4 H, INR 1.8 Radiography Diagnostic Testing: Radiology Impression Renal Artery Duplex 01/16/23 01:05 Interpretation Summary Maximal aortic diameter is 2.39 x 2.32 cm diameter distally which is normal. Less than 60% stenosis bilateral renal arteries Maintained right renal length of 10.5 cm Maintained left renal length of 10.95 cm Ordering Physician: Eladio Almanza Referring Physician: Ian Burns Performed By: Darrius Hua RVT Physical Exam Const alert, oriented x3 and no apparent distress General Appearance: cooperative HEENT normocephalic, head/scalp atraumatic, moist oral mucous membranes and oropharynx normal Eyes PERRL and EOMs intact bilaterally Neck no lymphadenopathy and supple Lymph Lymphatic: no lymphadenopathy noted and no lymphedema noted Resp normal respiratory effort, normal air movement and clear to auscultation bilaterally Cardio regular rate, regular rhythm, S1 normal heart sound, S2 normal heart sound and no murmurs GI normal to inspection, nondistended, normoactive bowel sounds, soft to palpation, non-tender and non-distended Extremity normal capillary refill, no clubbing, cyanosis or edema and no calf tenderness General Extremity: no tenderness to palpation of joints or extremities Skin General Skin Exam: no breakdown Neuro CN's II-XII intact bilaterally and no focal motor deficits Motor Exam: strength 5/5 throughout and general weakness Psych thought process normal, cooperative and affect normal Appearance: appropriate Assessment & Plan Assessment/Plan (1) Hypertension: (2) Multiple falls: (3) Contusion of face: PLAN: Plan #Debility and weakness due to mechanical fall * PT/OT on board. Fall precautions #Paroxysmal afib: on coumadin. on amiodarone. INR is 1.8. If he continues having recurrent falls, so may have to reconsider being on coumadin. #Hypertension: * came in with hypertensive urgency. * renal duplex USG showed less than 60% stenosis of bilateral arteries. * BP still remains elevated. On amlodipine, clonidine, hydralazine and labetalol. will add on HCTZ # Seizure disorder: on carbamazepine. DVT prophylaxis: on coumadin. Disposition; awaiting placement. Charges/Coding Visit Charges Inpatient E&M: 84881 Subs Hosp L2
[2023-01-17] MEDS: hydroCHLOROthiazide 25 MG Tablet PO (14:09)
--- NOTE | 2023-01-17 17:00 | CASEMGMT ---
Social Work Handoff update received from RN and FEDERICO Knowles. Patient's son to nurses station requesting to speak about discharge planning. Met with the patient's son Monty who reports the patient's son who lives out of state is not an option to come to [place] and help the patient. The son who lives out of state does not drive and is just not an option right now. Monty expressed much concern that the patient has been falling and not being truthful with staff as to the extent of the falls. Son describes falls at home, the doctor's office, the yard, and in the [email or web address] parking lot all within the last week. This radio script writer agreed to meet with patient to discuss concerns, but reinforced that patient is her own decision maker. Met with patient and patient's son Monty in room, introducing to self and social work role. This radio script writer acknowledged with patient, to be aware that patient's preference is to return home, but concerns present about patient going home alone at this point. Patient expressed understanding, and verbally acknowledged on all that going home alone is concerned by many. The son took this time to interject his concerns, and at which time the patient and informed the son there is no need to continue repeating himself over and over as the patient understands what the concerns are. Patient acknowledged that had not been truthful with staff on 1210on 01/26/2023, as about falls had wanted to go home. This radio script writer provided patient a list generated from care report of [place] [facility] [place] facilities in patient's geographical region also including Medicare star and quality data. After review of information the patient chosen this order: [facility], [facility], [facility], and [facility]. This radio script writer explained that if [employer] will would not feel patient is appropriate under Medicare skilled, the other option would be for the patient to go under Medicaid crossover. From this radio script writer's knowledge in prior conversations with a [place] [facility] [place] facility, the crossover is much like a dual plan and requires verification with the insurance in order to see what would be needed to authorized via Medicaid. Updated discharge planning official Kellie on patient's choices. Kellie will contact [facility]. This radio script writer left a message for Lisandro at [facility]. Updated Dr. Ortez. Plan: Short-term nursing facility, referrals pending. -DANUTA Zavaleta, SURGICAL ASSIST *This note was generated with [employer] software. It may contain incorrect words, spelling, and punctuation that were not noted in review of the chart prior to signing*
[2023-01-17] MEDS: Atorvastatin Calcium 40 MG Tablet PO (21:56)
[2023-01-17] MEDS: Acetaminophen 325 MG Tablet 650 MG PO (22:00)
[2023-01-18] VITALS (7 sets, daily range): BP systolic 129–161; BP diastolic 86–96; PULSE 61–77; RESP 16–18; TEMP 36.4–36.6; O2SAT 96–99
[2023-01-18] MEDS: 0.9% Saline Lock 10 ML Syringe IV (02:36)
[2023-01-18] MEDS: hydrALAZINE 50 MG Tablet 100 MG PO ×3 (06:02→20:49)
[2023-01-18] MEDS: cloNIDine HCl 0.1 MG Tablet 0.3 MG PO ×3 (06:07→20:50)
[2023-01-18 08:39] LABS: International Normalized Ratio 1.7; Prothrombin Time (Protime)PT. 20.5 SECONDS (11.7-14.9)
[2023-01-18] MEDS: carBAMazepine 200 MG Tablet 400 MG PO ×2 (08:46→16:39)
[2023-01-18] MEDS: Amiodarone 200 MG Tablet PO ×2 (08:46→16:34)
--- NOTE | 2023-01-18 10:15 | CASEMGMT ---
Discharge Planning Referral sent via [facility] to [facility]. This referral was declined. SW updated. Kellie Camejo, Discharge Planning Asst.
[2023-01-18] MEDS: Losartan Potassium 100 MG Tablet PO (10:47)
[2023-01-18] MEDS: amLODIPine 10 MG Tablet PO (10:47)
[2023-01-18] MEDS: hydroCHLOROthiazide 25 MG Tablet PO (10:47)
[2023-01-18] MEDS: Labetalol 100 MG Tablet PO ×2 (10:47→20:50)
--- NOTE | 2023-01-18 11:37 | PN_ITS ---
Subjective Subjective Patient seen and examined. She had no complaints. He had an uneventful night. Review of systems otherwise negative. She has remained hemodynamically stable. Objective Data Objective Data Vital Signs: Vital Signs Temp Pulse Resp BP Pulse Ox O2 Del Method 97.8 F 77 18 129/93 H 99 Room Air 01/18/23 08:41 01/18/23 08:41 01/18/23 08:41 01/18/23 08:41 01/18/23 08:41 01/18/23 08:48 Oxygen Delivery Method Room Air Weight: 133 lb 13.129 oz Body Mass Index (BMI) 24.5 Intake & Output: Intake and Output for Last 24 Hours 01/16/23 01/17/23 01/18/23 23:59 23:59 23:59 Intake Total 1100 / 1100 750 / 1230 600 / 600 Output Total 350 / 350 Balance 1100 / 1100 400 / 880 600 / 600 Lab / Micro Data 01/16/23 04:56 01/16/23 04:56 Labs: Laboratory Results - last 24 hr 01/18/23 08:17: PT 20.5 H, INR 1.7 Radiography Diagnostic Testing: Radiology Impression Echocardiogram 01/16/23 01:06 Interpretation Summary The estimated ejection fraction is 65 %. No evidence for diastolic dysfunction. The left atrium is mildly enlarged. Ordering Physician: Eladio Almanza Referring Physician: Ian Burns Performed By: Sharlene Puente, RDCS, RVT Physical Exam Const alert, oriented x3 and no apparent distress General Appearance: cooperative, well kempt and well developed Orientation / Consciousness: awake, oriented to person, oriented to place and oriented to time HEENT normocephalic, head/scalp atraumatic, moist oral mucous membranes and oropharynx normal Eyes PERRL and EOMs intact bilaterally Neck no lymphadenopathy, supple, no JVD, thyroid normal and no carotid bruits General: trachea midline Lymph Lymphatic: no lymphadenopathy noted and no lymphedema noted Resp normal respiratory effort, normal air movement, no retractions, no use of accessory muscles and clear to auscultation bilaterally Auscultation: Negative for rales, rhonchi or wheezes Cardio regular rate, regular rhythm, S1 normal heart sound, S2 normal heart sound, no murmurs, no rub and no gallops GI normal to inspection, nondistended, normoactive bowel sounds, soft to palpation, non-tender and non-distended Extremity normal to inspection, normal capillary refill, no clubbing, cyanosis or edema and no calf tenderness General Extremity: no tenderness to palpation of joints or extremities Skin no rashes or lesions noted General Skin Exam: no breakdown Neuro oriented x3, CN's II-XII intact bilaterally, moves all extremities, no focal motor deficits and no sensory deficits noted Sensorium / Orientation: awake and alert Speech: speech normal Motor Exam: strength 5/5 throughout and general weakness Psych thought process normal, cooperative and affect normal Appearance: appropriate Assessment & Plan Assessment/Plan (1) Hypertension: (2) Multiple falls: (3) Contusion of face: PLAN: Plan #Debility and weakness due to mechanical fall * PT/OT on board. Fall precautions #Paroxysmal afib: on coumadin. on amiodarone. INR is 1.7 today. If he continues having recurrent falls, so may have to reconsider being on coumadin. #Hypertension: * came in with hypertensive urgency. * renal duplex USG showed less than 60% stenosis of bilateral arteries. * BP still remains elevated. On amlodipine, clonidine, hydralazine and labetalol. HCTZ added on yesterday * 2D echo showed EF of 65% with no evidence of diastolic dysfunction and mildly enlarged left atrium. # Seizure disorder: on carbamazepine. DVT prophylaxis: on coumadin. Disposition; awaiting placement. Charges/Coding Visit Charges Inpatient E&M: 06490 Subs Hosp L2
[2023-01-18] MEDS: Acetaminophen 325 MG Tablet 650 MG PO (14:41)
--- NOTE | 2023-01-18 15:03 | CHAPLAIN ---
Type of Pastoral Visit _x__ Initial Visit ___ Follow-up Visit ___ On-call Visit ___ General Patient Visit ___ Spiritual Assessment ___ Family Conference ___ Bereavement ___ Rapid Response ___ Code Blue ___ Other (describe below) Pastoral Care Referral From _x__ Patient ___ Family ___ Nurse ___ Physician ___ Account Financial Manager ___ Manager Stars ___ Other (describe below) Sacrament/Intervention _x__ Active listening ___ Anointing ___ Jewish ___ Bereavement ___ Communion ___ Kezia exploration ___ _x__ Life review _x__ Prayer ___ Reconciliation ___ Sacrament of Sick ___ Supportive presence ___ Wedding ___ Other (describe below) Pastoral Comments patient reports on her progress and is optimistic; pt speaks of her loss of spouse and how she is coping with that; pt expresses kezia in God for her future and welcomes the presence and prayer of this search engine optimization analyst for support
--- NOTE | 2023-01-18 17:22 | CASEMGMT ---
Social Work Received update from Discharge capacity planning analyst and patient is declined by [facility]. Referral made to second choice of [facility]. Met with patient and updated, including referral being with [facility]. Plan: Referral pending with [facility]. -BRETT Zavaleta
[2023-01-18] MEDS: Atorvastatin Calcium 40 MG Tablet PO (20:50)
[2023-01-19] VITALS (7 sets, daily range): BP systolic 113–158; BP diastolic 79–97; PULSE 60–73; RESP 14–16; TEMP 36.6–36.9; O2SAT 98–100
[2023-01-19] MEDS: hydrALAZINE 50 MG Tablet 100 MG PO ×3 (05:51→21:55)
[2023-01-19] MEDS: cloNIDine HCl 0.1 MG Tablet 0.3 MG PO ×3 (05:52→21:56)
[2023-01-19] MEDS: Amiodarone 200 MG Tablet PO ×2 (08:52→18:00)
[2023-01-19] MEDS: carBAMazepine 200 MG Tablet 400 MG PO ×2 (08:52→18:01)
[2023-01-19] MEDS: hydroCHLOROthiazide 25 MG Tablet PO (08:53)
[2023-01-19] MEDS: Losartan Potassium 100 MG Tablet PO (08:53)
[2023-01-19] MEDS: amLODIPine 10 MG Tablet PO (08:54)
[2023-01-19] MEDS: Labetalol 100 MG Tablet PO ×2 (08:54→21:56)
--- NOTE | 2023-01-19 09:53 | PN_ITS ---
Subjective Subjective Patient seen and examined. She had no active complaints and had an uneventful night. Review of systems is otherwise negative. She has remained hemodynamically stable. Objective Data Objective Data Vital Signs: Vital Signs Temp Pulse Resp BP Pulse Ox O2 Del Method 98.2 F 73 16 113/79 100 Room Air 01/19/23 08:43 01/19/23 08:43 01/19/23 08:43 01/19/23 08:43 01/19/23 08:43 01/19/23 08:43 Oxygen Delivery Method Room Air Weight: 133 lb 13.129 oz Body Mass Index (BMI) 24.5 Intake & Output: Intake and Output for Last 24 Hours 01/17/23 01/18/23 01/19/23 23:59 23:59 23:59 Intake Total 750 / 1230 1600 / 1800 350 / 350 Output Total 350 / 350 Balance 400 / 880 1600 / 1800 350 / 350 Lab / Micro Data 01/16/23 04:56 01/16/23 04:56 Physical Exam Const alert, oriented x3 and no apparent distress General Appearance: cooperative, well kempt and well developed Orientation / Consciousness: awake, oriented to person, oriented to place and oriented to time HEENT normocephalic, head/scalp atraumatic, moist oral mucous membranes and oropharynx normal Eyes PERRL and EOMs intact bilaterally Neck no lymphadenopathy, supple, no JVD, thyroid normal and no carotid bruits General: trachea midline Lymph Lymphatic: no lymphadenopathy noted and no lymphedema noted Resp normal respiratory effort, normal air movement, no retractions, no use of acce ssory muscles and clear to auscultation bilaterally Auscultation: Negative for rales, rhonchi or wheezes Cardio regular rate, regular rhythm, S1 normal heart sound, S2 normal heart sound, no murmurs, no rub and no gallops GI normal to inspection, nondistended, normoactive bowel sounds, soft to palpation, non-tender and non-distended Extremity normal to inspection, normal capillary refill, no clubbing, cyanosis or edema and no calf tenderness General Extremity: no tenderness to palpation of joints or extremities Skin no rashes or lesions noted General Skin Exam: no breakdown Neuro oriented x3, CN's II-XII intact bilaterally, moves all extremities, no focal motor deficits and no sensory deficits noted Sensorium / Orientation: awake and alert Speech: speech normal Motor Exam: strength 5/5 throughout and general weakness Psych thought process normal, cooperative and affect normal Appearance: appropriate Assessment & Plan Assessment/Plan (1) Hypertension: (2) Multiple falls: (3) Contusion of face: PLAN: Plan #Debility and weakness due to mechanical fall * PT/OT on board. Fall precautions #Paroxysmal afib: on coumadin. on amiodarone. INR is pending today. If she continues having recurrent falls, so may have to reconsider being on coumadin. #Hypertension: * came in with hypertensive urgency. THis has resolved. BP this morning is 113/79. * renal duplex USG showed less than 60% stenosis of bilateral arteries. * BP still remains elevated. On amlodipine, clonidine, hydralazine and labetalol. HCTZ added on * 2D echo showed EF of 65% with no evidence of diastolic dysfunction and mildly enlarged left atrium. # Seizure disorder: on carbamazepine. DVT prophylaxis: on coumadin. Disposition; awaiting placement. Charges/Coding Visit Charges Inpatient E&M: 79918 Subs Hosp L2
[2023-01-19 11:20] LABS: International Normalized Ratio 1.8; Prothrombin Time (Protime)PT. 21.3 SECONDS (11.7-14.9)
[2023-01-19] MEDS: Acetaminophen 325 MG Tablet 650 MG PO (14:26)
--- NOTE | 2023-01-19 14:45 | CASEMGMT ---
Social Work SW received message that pt has been denied by insurance for admission to TCU. SW discussed case with physician and peer to peer will not be completed. Referral to be sent to [facility] and [facility] for pt to be admitted under Medicaid Crossover as previously discussed with pt and son. SW will await determination from [facility] and [facility]. SEUN Natarajan
--- NOTE | 2023-01-19 16:01 | CASEMGMT ---
Discharge Planning SNF referral sent via [facility] to [facility] and [facility]. Kellie Camejo, Discharge Planning
[2023-01-19] MEDS: Atorvastatin Calcium 40 MG Tablet PO (21:55)
[2023-01-20 02:05] VITALS: BP 112/72; PULSE 74; RESP 16; TEMP 36.6; O2SAT 96
[2023-01-20 05:17] VITALS: BP 148/86; PULSE 65; RESP 16; TEMP 36.6; O2SAT 95
[2023-01-20 05:19] VITALS: BP 148/86; PULSE 65
[2023-01-20] MEDS: hydrALAZINE 50 MG Tablet 100 MG PO ×2 (05:19→15:00)
[2023-01-20] MEDS: cloNIDine HCl 0.1 MG Tablet 0.3 MG PO ×2 (05:19→14:59)
[2023-01-20 07:47] VITALS: BP 127/79; PULSE 62; RESP 18; TEMP 36.6; O2SAT 96
[2023-01-20] MEDS: hydroCHLOROthiazide 25 MG Tablet PO (07:50)
[2023-01-20] MEDS: Amiodarone 200 MG Tablet PO (07:50)
[2023-01-20] MEDS: Losartan Potassium 100 MG Tablet PO (07:50)
[2023-01-20] MEDS: amLODIPine 10 MG Tablet PO (07:51)
[2023-01-20] MEDS: Labetalol 100 MG Tablet PO (07:51)
[2023-01-20] MEDS: carBAMazepine 200 MG Tablet 400 MG PO (07:51)
[2023-01-20 09:47] LABS: International Normalized Ratio 1.4; Prothrombin Time (Protime)PT. 17.1 SECONDS (11.7-14.9)
--- NOTE | 2023-01-20 09:48 | CASEMGMT ---
Social Work Return message from [facility]. Pt has been accepted to [facility] however, pt's type of Medicaid does not have a retirement benefit and pt would need to admit private pay. Phone call to pt's son Monty and information regarding TCU and insurance denial and [facility] and Medicaid provided to him. Monty feels pt has improved over hospital course and can return home at this time. Monty is agreeable to home health care for pt. SW met with pt and introduced self and role of SW. SW discussed about situation and conversation with Monty. Pt agrees that she is able to return home at this time and is agreeable to home health services. SW updated pt that a list of providers options will be brought to her to choose from. Physician updated that pt will return home with home health. Pt has a cane and rollator. DC logging assistant updated and to create list and deliver to pt for review. RNCM updated. Plan: Home with Home Health Care SEUN Natarajan
--- NOTE | 2023-01-20 10:14 | CASEMGMT ---
GONZALO CABALLERO NOTE: Pt being discharged home and Kellie, program planner, working on getting HHC set up. GONZALO CABALLERO to room. Pt sitting up in chair. Introduced self and role. Pt declines needing any DME or any further discharge planning needs/concerns. She has a rollator and does not want a WW, stating the rollator works better for her. Aishwarya GREENN GONZALO CM
--- NOTE | 2023-01-20 10:21 | CASEMGMT ---
Addendum entered by Kellie Camejo 01/20/23 11:47: Discharge Planning [place] and [facility] declined referral. [facility] accepted. Updated patient and she would like to proceed. Notified [facility] and [facility] to disegard referral. GONZALO CABALLERO updated. Kellie Camejo, Discharge Planning Asst. Addendum entered by Kellie Camejo 01/20/23 10:44: Discharge Planning [facility] [place] and [facility] declined referral. Per patient request, new referral sent to [facility], [facility], [facility], [facility], and [facility]. Kellie Camejo, Discharge Planning Asst. Original Note: Discharge Planning referral sent via [facility] to [facility] and [facility] per patients request. Kellie Camejo, Discharge Planning Asst.
--- NOTE | 2023-01-20 10:53 | DCINST_ITS ---
Discharge Instructions Diet Discharge Diet: Low fat / Low cholesterol Activity Discharge Activity: Return to Normal Activity Weight Bearing Status: Weight bearing as tolerated Dressing / Incision Call your doctor if you observe: Shortness of breath, Dizziness, Swelling in the ankles, Increased palpitations (irregular heartbeat) and Uncontrolled pain Follow Up Care Test Results: Test results from this visit will be discussed in further detail at your follow- up appointment, if applicable. Discharge Plan Admission Admit Date/Time: 01/15/23 22:52 Primary Reason for Your Visit: debililty due to recurrent falls Attending Provider: Rosalva Ortez Primary Care Provider: Ian Burns Consulting Providers: Eladio Almanza; Axel Javier Instructions Patient Instructions: ED Mechanical Fall Discharge Orders/Prescriptions Prescriptions: New hydralazine 25 mg tablet 25 mg PO TID Qty: 90 2RF Continued amiodarone 200 mg tablet 200 mg PO BID amlodipine 10 mg tablet 10 mg PO DAILY atorvastatin 40 mg tablet 40 mg PO DAILY carbamazepine 200 mg tablet 400 mg PO BID clonidine HCl 0.3 mg tablet 0.3 mg PO TID Patient Comments: TOOK 2X TODAY hydralazine 100 mg tablet 100 mg PO TID Patient Comments: HAS TAKEN 2 DOSES TODAY labetalol 100 mg tablet 100 mg PO BID ofloxacin 0.3 % drops 1 drp ophthalmic (eye) DAILY Patient Comments: TO LEFT EYE valsartan 160 mg tablet 160 mg PO BID warfarin 2.5 mg tablet 2.5 mg PO DAILY Patient Comments: DOES NOT KNOW DOSE. Discontinued hydralazine 10 mg tablet 10 mg PO TID Referrals / Follow Up: Ian Burns MD [Primary Care Provider] - Within 1 Week Disposition Disposition (needs filled in before D/C Order can be placed): Home Health Service
--- NOTE | 2023-01-20 10:53 | PCM.DC.SUM ---
Providers Date of Admission: 01/15/23 Date of Discharge: 01/20/23 Primary Care Physician: Dr. Ian Burns MD Reason For Visit: RECURRENT FALLS Diagnosis Discharge Diagnosis (1) Hypertension: Status: Chronic Code(s): I10 - Essential (primary) hypertension (2) Multiple falls: Status: Acute Code(s): R29.6 - Repeated falls (3) Contusion of face: Status: Acute Code(s): S00.83XA - Contusion of other part of head, initial encounter Plan #Debility and weakness due to mechanical fall PT/OT on board. Fall precautions #Paroxysmal afib: on coumadin. on amiodarone. INR is pending today. If she continues having recurrent falls, so may have to reconsider being on coumadin. #Hypertension: came in with hypertensive urgency. THis has resolved. BP this morning is 113/79. renal duplex USG showed less than 60% stenosis of bilateral arteries. BP still remains elevated. On amlodipine, clonidine, hydralazine and labetalol. HCTZ added on 2D echo showed EF of 65% with no evidence of diastolic dysfunction and mildly enlarged left atrium. # Seizure disorder: on carbamazepine. DVT prophylaxis: on coumadin. Disposition; awaiting placement. Medications at Discharge Home Medications amiodarone 200 mg tablet 200 mg PO BID heart 01/15/23 amlodipine 10 mg tablet 10 mg PO DAILY 01/15/23 atorvastatin 40 mg tablet 40 mg PO DAILY 01/15/23 carbamazepine 200 mg tablet 400 mg PO BID 01/15/23 clonidine HCl 0.3 mg tablet 0.3 mg PO TID 01/15/23 hydralazine 100 mg tablet 100 mg PO TID BLOOD PRESSURE 01/15/23 labetalol 100 mg tablet 100 mg PO BID 01/15/23 ofloxacin 0.3 % eye drops 1 drp ophthalmic (eye) DAILY 01/15/23 valsartan 160 mg tablet 160 mg PO BID 01/15/23 warfarin 2.5 mg tablet 2.5 mg PO DAILY BLOOD THINNER 01/15/23 hydrochlorothiazide 25 mg tablet 25 mg PO DAILY #30 tabs 01/20/23 Hospital Course Operations None Procedures None Summary of Care Provided Minutes Spent on Discharge: 55 Hospital Course: Patient is a 72 y/o female with a PMH as outlined who was admitted via the ED on 01/15/2023 with a complaint of mechanical fall. She had been falling several times over the last few days prior to admission. She denied any dizziness, lightheadedness, palpitations, nausea, vomiting or any other symptoms. Review of systems was otherwise negative. She usually ambulated with a walker. BP was markedly elevated. EKG showed atrial flutter. Labs werrre unremarkable. CT brain showed no chronic involutional changes. CT cervical spine showed no fracture. CT of the facial bones showed acute right sphenoid sinusitis. She was admitted and managed for debility due to mechanical fall. BP was controlled, which also resulted in improvement of her symptoms. PT/OT was consulted. She was skilled as needing placement. Her BP meds were adjusted and hydrochlorthiazide added on. Her BP control improved and she felt better. Insurance denied approval for SNF; patient and family were agreeable to her going home with home therapy. She remained stable and was discharged home on 01/20/2023 with home health. She is to follow-up with her primary care doctor within 1 to 2 weeks.She had hydrochlorthiazide 25mg daily added on to her medications to help with her BP control Patient seen and examined prior to discharge. She had no complaints and had an uneventful night. Review of systems otherwise negative. Labs and vitals reviewed. Home medication reviewed and reconciled. Physical Exam Const alert, oriented x3 and no apparent distress General Appearance: cooperative, comfortable, well kempt and well developed Orientation / Consciousness: awake, oriented to person, oriented to place and oriented to time HEENT normocephalic, head/scalp atraumatic, moist oral mucous membranes and oropharynx normal Eyes PERRL and EOMs intact bilaterally Neck no lymphadenopathy, supple, no JVD, thyroid normal and no carotid bruits General: trachea midline Lymph Lymphatic: no lymphadenopathy noted and no lymphedema noted Resp normal respiratory effort, normal air movement, no retractions, no use of accessory muscles and clear to auscultation bilaterally Auscultation: Negative for rales, rhonchi or wheezes Cardio regular rate, regular rhythm, S1 normal heart sound, S2 normal heart sound, no murmurs, no rub and no gallops GI normal to inspection, nondistended, normoactive bowel sounds, soft to palpation, non-tender and non-distended Extremity normal to inspection, full ROM, normal capillary refill, no clubbing, cyanosis or edema and no calf tenderness General Extremity: no tenderness to palpation of joints or extremities Skin no rashes or lesions noted General Skin Exam: no breakdown Neuro oriented x3, CN's II-XII intact bilaterally, moves all extremities, no focal motor deficits and no sensory deficits noted Sensorium / Orientation: awake and alert Speech: speech normal Motor Exam: strength 5/5 throughout and general weakness Psych thought process normal, cooperative and affect normal Appearance: appropriate Weight / BMI Weight Weight: 133 lb 13.129 oz Body Mass Index (BMI) 24.5 ABG / Lab / Microbiology Data 01/16/23 04:56 01/16/23 04:56 Laboratory: Laboratory Results - last 24 hr 01/19/23 10:40: PT 21.3 H, INR 1.8 01/20/23 08:50: PT 17.1 H, INR 1.4 D/C Instructions Discharge Diet: Low fat / Low cholesterol Discharge Activity: Return to Normal Activity Weight Bearing Status: Weight bearing as tolerated Call your doctor if you observe: Shortness of breath, Dizziness, Swelling in the ankles, Increased palpitations (irregular heartbeat) and Uncontrolled pain Meaningful Use Info Meaningful Use Diagnoses (Choose all that apply): None applicable Discharge Plan Admission Admit Date/Time: 01/15/23 22:52 Primary Reason for Your Visit: debililty due to recurrent falls Attending Provider: Rosalva Ortez Primary Care Provider: Ian Burns Consulting Providers: Eladio Almanza; Axel Javier Instructions Patient Instructions: ED Mechanical Fall Discharge Orders/Prescriptions Prescriptions: New hydrochlorothiazide 25 mg Tablet 25 mg PO DAILY Qty: 30 2RF Continued amiodarone 200 mg tablet 200 mg PO BID amlodipine 10 mg tablet 10 mg PO DAILY atorvastatin 40 mg tablet 40 mg PO DAILY carbamazepine 200 mg tablet 400 mg PO BID clonidine HCl 0.3 mg tablet 0.3 mg PO TID Patient Comments: TOOK 2X TODAY hydralazine 100 mg tablet 100 mg PO TID Patient Comments: HAS TAKEN 2 DOSES TODAY labetalol 100 mg tablet 100 mg PO BID ofloxacin 0.3 % drops 1 drp ophthalmic (eye) DAILY Patient Comments: TO LEFT EYE valsartan 160 mg tablet 160 mg PO BID warfarin 2.5 mg tablet 2.5 mg PO DAILY Patient Comments: DOES NOT KNOW DOSE. Discontinued hydralazine 10 mg tablet 10 mg PO TID Referrals / Follow Up: Ian Burns MD [Primary Care Provider] - Within 1 Week Disposition Disposition (needs filled in before D/C Order can be placed): Home Health Service Charges/Coding Visit Charges Inpatient E&M: 31969 Disch Hosp >30min
[2023-01-20 14:58] VITALS: BP 130/89; PULSE 65; RESP 18; TEMP 36.8; O2SAT 94
[2023-01-20 15:00] VITALS: PULSE 65
== END 2023-01-20 15:56 | disposition home health service (06) | DRG 948 ==
LOC: ED 22:29 → MS3 23:37
PROVIDERS: Internal Medicine; Admitting Provider Internal Medicine; Emergency Provider Emergency Medicine; PCP Family Medicine; Visit Provider Student in an Organized Health Care Education/Training Program
DX: R53.1 Weakness (principal); E78.5 Hyperlipidemia, unspecified; G40.909 Epilepsy, unspecified, not intractable, without status epilepticus; I48.0 Paroxysmal atrial fibrillation; F17.210 Nicotine dependence, cigarettes, uncomplicated; I10 Essential (primary) hypertension; S00.83XA Contusion of other part of head, initial encounter; W18.30XA Fall on same level, unspecified, initial encounter; I25.10 Atherosclerotic heart disease of native coronary artery without angina pectoris; I25.2 Old myocardial infarction; I16.0 Hypertensive urgency; R29.6 Repeated falls; R53.81 Other malaise; R26.81 Unsteadiness on feet; Z95.1 Presence of aortocoronary bypass graft; Z79.01 Long term (current) use of 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; Z79.899 Other long term (current) drug therapy; Z86.73 Personal history of transient ischemic attack (TIA), and cerebral infarction without residual deficits
CPT/HCPCS: 36415; 70450; 70486; 72125; 73130; 80048; 80053; 81001; 82248; 83735; 84100; 84443; 85025; 85610; 85730; 93005; 93306; 93975; 97110; 97112; 97116; 97162; 97166; 97530; 97535; 99285; J7040; A4216

== ENCOUNTER 2023-01-21 09:02 | Emergency (ER) | payer MEDICARE, SELFPAY ==
[2023-01-21 09:03] VITALS: BP 112/75; PULSE 54; RESP 16; TEMP 36.2; O2SAT 100; O2SAT 99; BMI 25.7
--- NOTE | 2023-01-21 09:35 | EKG12_ITS ---
Test Reason : LOW BP Blood Pressure : / mmHG Vent. Rate : 063 BPM Atrial Rate : 242 BPM P-R Int : 000 ms QRS Dur : 106 ms QT Int : 498 ms P-R-T Axes : 087 036 086 degrees QTc Int : 509 ms 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 with variable A-V block Left ventricular hypertrophy with repolarization abnormality ( Hyden product ) Septal infarct , age undetermined Abnormal ECG Confirmed by GABY SAVAGE, ALISA ([id number]), photo editor ROSANNE SAMAYOA () on 01/24/2023 1:32:58 P M Referred By: Confirmed By:LIAM GRIFFIN MD
--- NOTE | 2023-01-21 09:40 | EX.ED.DYSGE1 ---
HPI History of Present Illness Chief Complaint: Hypotension Informant: patient and EMS Narrative Narrative: 72-year-old female recently admitted for hypertensive urgency and falls was discharged home yesterday. Patient states that she has not yet picked up her new medication which is supposed to be HCTZ.. Patient takes amlodipine 10 mg QD, amiodarone 200 mg twice daily for atrial fibrillation, clonidine 0.3 mg 3 times daily, hydralazine 100 mg 3 times daily, labetalol 100 mg twice daily and valsartan 160 mg twice daily. She is also on Coumadin. She states that in June she had bypass surgery and valve repair. She states she sees cardiology in [place]. Today she states she got up around 0600. She was watching TV and at 0700 took her morning medications. Just before 0 800 she began to feel pretty lightheaded and felt she may pass out so she lowered herself to the ground. EMS called which note a systolic blood pressure of 90. Patient states that she is feeling significantly better now. Patient did not injure herself. She denies any chest pain or shortness of breath. She has not yet picked up the hydrochlorothiazide from her pharmacy but is supposed to do so today. [facility] Medical History Afib Anemia 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 COPD (chronic obstructive pulmonary disease) Deafness in left ear Depression Diabetes GERD (gastroesophageal reflux disease) HTN (hypertension) Irregular heart beat Myocardial infarct Rheumatoid arthritis Right renal artery stenosis Seizures Stroke/cerebrovascular accident Home Medications amiodarone 200 mg tablet 200 mg PO BID heart 01/15/23 [History Last Taken Unknown] amlodipine 10 mg tablet 10 mg PO DAILY 01/15/23 [History Last Taken Unknown] atorvastatin 40 mg tablet 40 mg PO DAILY 01/15/23 [History Last Taken Unknown] carbamazepine 200 mg tablet 400 mg PO BID 01/15/23 [History Last Taken Unknown] clonidine HCl 0.3 mg tablet 0.3 mg PO TID 01/15/23 [History Last Taken 01/15/23] hydralazine 100 mg tablet 100 mg PO TID BLOOD PRESSURE 01/15/23 [History Last Taken 01/15/23] labetalol 100 mg tablet 100 mg PO BID 01/15/23 [History Last Taken Unknown] ofloxacin 0.3 % eye drops 1 drp ophthalmic (eye) DAILY 01/15/23 [History Last Taken Unknown] valsartan 160 mg tablet 160 mg PO BID 01/15/23 [History Last Taken Unknown] warfarin 2.5 mg tablet 2.5 mg PO DAILY BLOOD THINNER 01/15/23 [History Last Taken Unknown] hydrochlorothiazide 25 mg tablet 25 mg PO DAILY #30 tabs 01/20/23 [Rx Last Taken Unknown] Allergy/AdvReac Type Severity Reaction Status Date / Time ibuprofen Allergy Rash Verified 01/15/23 20:14 naproxen [From Naprosyn] Allergy Rash Verified 01/15/23 20:14 codeine AdvReac Other Verified 01/15/23 20:14 Surgical History Aortic valve replaced Hx of CABG Social History Smoking Status: Current every day smoker tobacco type: cigarettes ROS ROS ED Constitutional Constitutional ED: Denies chills or weight loss Eyes Eyes: Denies change in vision or diplopia ENT ENT ED: Denies ear pain, rhinorrhea or sore throat Cardiovascular Cardiovascular: Denies chest pain, orthopnea, palpitations or racing heartbeat Respiratory/Chest Respiratory/Chest: Denies cough, dyspnea or orthopnea Gastrointestinal Gastrointestinal: Denies abdominal pain, diarrhea, nausea or vomiting Genitourinary Genitourinary ED: Denies dysuria, hematuria or urinary frequency Musculoskeletal Musculoskeletal: Denies arthralgias or myalgias Integumentary Denies abscess or rash Neurologic Neurologic: Denies headache(s) or weakness Psychiatric Psychiatric: Denies anxiety, depression, suicidal ideation or suicidal thoughts Endocrine Endocrinology: Denies polydipsia, polyphagia or polyuria Allergic/Immunologic Allergic/Immunologic ED: Denies mouth swelling, tongue swelling or urticaria EXAM Physical Exam Const Vital Signs: 01/21/23 09:03 01/21/23 09:07 01/21/23 10:05 Temperature 97.2 F L Temperature Source Temporal Pulse Rate 54 L Pulse Rate [Lying] 53 L Pulse Rate [Sitting (for 1 minute prior to obtaining)] 62 Pulse Rate [Standing (for 1 minute prior to obtaining)] 65 Respiratory Rate 16 Respiratory Effort Normal Non-Labored Respiratory Pattern Normal Blood Pressure 112/75 Blood Pressure [Lying] 117/84 H Blood Pressure [Sitting (for 1 minute prior to obtaining)] 120/70 Blood Pressure [Standing (for 1 minute prior to obtaining)] 108/79 Blood Pressure Mean 87 Blood Pressure Mean [Lying] 95 Blood Pressure Mean [Sitting (for 1 minute prior to obtaining)] 86 Blood Pressure Mean [Standing (for 1 minute prior to obtaining)] 88 Pulse Ox 99 Oxygen Delivery Method Room Air Positive well nourished and well developed General Appearance ED: well developed HEENT Reports normocephalic, head/scalp atraumatic and moist mucous membranes Eyes PERRL and EOMs intact bilaterally Eyes Narrative: Right periorbital ecchymosis Neck no lymphadenopathy, supple and no JVD Resp normal respiratory effort and clear to auscultation bilaterally Cardio no murmurs Rhythm: abnormal rhythm irregularly irregular GI normal to inspection, nondistended, normoactive bowel sounds and non-tender Palpation: soft Back/Spine no CVA tenderness and normal ROM Extremity normal to inspection General Extremety ED: Negative for edema General Extremity: Negative for edema Neuro oriented x3 and CN's II-XII intact bilaterally Sensorium / Orientation: alert Motor Exam: strength 5/5 throughout Psych mental status grossly normal Mood & Affect: Negative for depressed or tearful Skin no rashes or lesions noted and no wounds MDM MDM MDM Narrative Medical decision making narrative: Patient is not orthostatic. CBC returns normal. CMP negative except for glucose of 173. Troponin 2 sets 79 and 87. INR subtherapeutic at 1.3. I have asked that she double her dose over the next 3 days and have it rechecked early next week. Urinalysis shows contamination but no overt infection. She is rate controlled atrial flutter on EKG. I spoke with cardiology. She is not having chest pain. I think the elevated troponin is most likely due to the hypotension. She has been normotensive since arriving here in the department. She is not orthostatic. Her son is with her. We are going to have her not start the HCTZ. It is difficult to say what her blood pressures going to do. She may have episodes where it is very high and she may have episodes where it runs low. Unfortunately I cannot predict 1 where the other at this point. If however she continues to have episodes where it runs low she will most likely need to have some of her blood pressure medications reduced or removed. And if it is persistent she may need to have permissive hypertension. However we talked at this is not without risk either. At this point patient be discharged home return if worsening or concerns she is encouraged to follow-up she is encouraged to follow-up with her doctors To discuss her hospitalization and this visit History & Record Review Discussion w/independent historian: EMS personnel, Patient and Family Lab Data Attestation: I reviewed the patient's lab results. Labs: Laboratory Results - last 24 hr 01/21/23 01/21/23 01/21/23 09:10 10:47 11:16 WBC 6.6 RBC 4.80 Hgb 15.0 Hct 45.2 MCV 94.2 MCH 31.3 MCHC 33.2 RDW Std Deviation 43.8 RDW Coeff of [place] 12.6 Plt Count 226 MPV 9.8 Immature Gran % (Auto) 0.600 Neut % (Auto) 64.2 Lymph % (Auto) 23.6 [place] % (Auto) 9.0 Eos % (Auto) 1.4 Baso % (Auto) 1.2 H Absolute Neuts (auto) 4.3 Absolute Lymphs (auto) 1.57 Nucleated RBC % 0 PT 16.3 H INR 1.3 Sodium 137 Potassium 3.6 Chloride 100 Carbon Dioxide 30.0 Anion Gap 7 BUN 12 Creatinine 0.75 Estim Creat Clear Calc 39.63 Est GFR (MDRD) Af Amer 97 Est GFR (MDRD) Non-Af 80 BUN/Creatinine Ratio 15.9 Glucose 173 H Calcium 9.1 Total Bilirubin 0.40 AST 18 ALT 24 Alkaline Phosphatase 98 Troponin I High Sens 79 H 87 H Total Protein 7.1 Albumin 3.6 Globulin 3.5 Albumin/Globulin Ratio 1.0 Urine Color Straw Urine Clarity Clear Urine pH 7.0 Ur Specific [place] 1.010 Urine Protein 30 H Urine Glucose (UA) 50 H Urine Ketones Negative Urine Occult Blood 10 H Urine Nitrite Negative Urine Bilirubin Negative Urine Urobilinogen Normal Ur Leukocyte Esterase 25 H Urine RBC 0 SEEN Urine WBC 0-5 SEEN Ur Squamous Epith Cells 5-10 SEEN Urine Bacteria 1+ Urine Mucus 0 SEEN EKG Initial EKG: Attestation: I personally reviewed and interpreted this EKG as follows: Comments: 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 with ventricular rate of 63 bpm. Prior EKG tracings: available for review Prior: Unchanged Discharge Plan Triage Chief Complaint: Hypotension ED Provider: Tod Ghotra Dx/Rx/DC Orders Clinical Impression: Acute hypotension, 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, chronic, Chronic anticoagulation, Orthostatic hypotension Instructions: Hypotension Dc Prescriptions: No Action amiodarone 200 mg tablet 200 mg PO BID amlodipine 10 mg tablet 10 mg PO DAILY atorvastatin 40 mg tablet 40 mg PO DAILY carbamazepine 200 mg tablet 400 mg PO BID clonidine HCl 0.3 mg tablet 0.3 mg PO TID Patient Comments: TOOK 2X TODAY hydralazine 100 mg tablet 100 mg PO TID Patient Comments: HAS TAKEN 2 DOSES TODAY labetalol 100 mg tablet 100 mg PO BID ofloxacin 0.3 % drops 1 drp ophthalmic (eye) DAILY Patient Comments: TO LEFT EYE valsartan 160 mg tablet 160 mg PO BID warfarin 2.5 mg tablet 2.5 mg PO DAILY Patient Comments: DOES NOT KNOW DOSE. hydrochlorothiazide 25 mg Tablet 25 mg PO DAILY Qty: 30 2RF Primary Care Provider: Chelita Beltran NP Referrals: Ian Burns MD [Non-Staff] - As soon as possible Activity Restrictions/Additional Instructions: Your Coumadin level is 1.3 today. I would suggest doubling your Coumadin dose the next 3 doses. You need to have this rechecked next week. I would also recommend you see your doctor next week to discuss your hospitalization and this visit. If you continue to have episodes of hypotension further medications may need to be changed. As discussed with your episodes of Hypertension and hypotension makes her blood pressure very difficult to manage. Do not fill/fruit or nut picker the HCTZ that was previously ordered at this time. Disposition Disposition: Home, Self Care
[2023-01-21 09:44] LABS: Absolute Lymphocyte Count 1.57 X10^3/uL (0.83-4.51); Absolute Neutrophil Count 4.3 X10^3/uL (2.0-7.7); Basophil# 0.08 X10^3/uL; Basophil% 1.2 % (0-1); Eosinophil# 0.09 X10^3/uL; Eosinophils% 1.4 % (0-5); Hematocrit 45.2 % (37-47); Lymphocyte # 1.57 X10^3/ul (0.83-4.51); Lymphocyte % 23.6 % (19-41); Mean Corp Hgb Conc 33.2 g/dL (32-36); Mean Corpuscular Hgb 31.3 pg (27.0-32.0); Mean Corpuscular Volume 94.2 fL (81-99); Mean Platelet Vol. 9.8 fl (6.2-12.0); NRBC Flagged by Analyzer 0 % (0-5); Neutrophil # 4.26 X10^3/uL (2.7-7.7); Neutrophil % 64.2 % (47-70); Platelet Count 226 K/mm3 (150-450); RBC Distribution Width CV 12.6 % (11.6-14.6); RBC Distribution Width SD 43.8 fl (35.1-43.9); White Blood Count 6.6 K/mm3 (4.4-11.0)
[2023-01-21 09:54] LABS: International Normalized Ratio 1.3; Prothrombin Time (Protime)PT. 16.3 SECONDS (11.7-14.9)
[2023-01-21 10:03] LABS: AST(SGOT) 18 U/L (15-37); Alanine Aminotransfer ALT/SGPT 24 U/L (13-56); Albumin, Serum 3.6 g/dL (3.2-5.0); Alkaline Phosphatase 98 U/L (45-117); Anion Gap 7 (5-15); BUN 12 mg/dL (7-18); BUN/Creat Ratio 15.9 RATIO (10-20); Calcium,Total 9.1 mg/dL (8.5-10.1); Chloride 100 mmol/L (98-107); Creatinine, Serum 0.75 mg/dL (0.55-1.02); EST Glomerular Filtration Rate 80 mL/min (>60); Est Glom Filt Rate - Afr Amer 97 mL/min (>60); Estimated Creatinine Clearance 39.63 ml/min; Globulin 3.5 g/dL (2.2-4.2); Glucose 173 mg/dL (74-106); Potassium 3.6 mmol/L (3.5-5.1); Protein, Total 7.1 g/dL (6.4-8.2); Sodium Level 137 mmol/L (136-145); Troponin-I HS 79 pg/mL (3.0-54.0)
[2023-01-21 10:05] VITALS: BP 108/79; BP 117/84; BP 120/70; PULSE 53; PULSE 62; PULSE 65
[2023-01-21 11:14] LABS: Troponin-I HS 87 pg/mL (3.0-54.0)
[2023-01-21 11:24] LABS: Mucous, Urine 0 SEEN /hpf (<or=2+); Red Blood Cells-Urine 0 SEEN /hpf (0-5)
[2023-01-21 11:28] LABS: Color, Urine Straw (Yellow); Glucose, Dipstick 50 mg/dl (Normal); Ketone-Dipstick Negative (Negative); Leukocyte Esterase-Dipstick 25 /ul (Negative); Nitrite-Dipstick Negative (Negative); Occult Blood-Urine 10 /ul (Negative); Protein-Dipstick 30 mg/dl (Negative); Urine Bilirubin Dipstick Negative (Negative); Urine Clarity Clear (Clear); Urine Urobilinogen Normal (Normal)
[2023-01-21 11:35] LABS: Bacteria 1+ /hpf (None Seen); Squamous Epithelial Cells - UA 5-10 SEEN /hpf (5-10)
[2023-01-21 11:38] LABS: White Blood Cells 0-5 SEEN /hpf (0-5)
[2023-01-21 12:31] VITALS: BP 145/89; O2SAT 97
== END 2023-01-21 12:32 | disposition home or self-care (01) ==
PROVIDERS: Emergency Provider Emergency Medicine; PCP Registered Nurse; Visit Provider Emergency Medicine
DX: I95.1 Orthostatic hypotension (principal); J44.9 Chronic obstructive pulmonary disease, unspecified; I48.91 Unspecified atrial fibrillation; I48.92 Unspecified atrial flutter; R56.9 Unspecified convulsions; E11.9 Type 2 diabetes mellitus without complications; F17.210 Nicotine dependence, cigarettes, uncomplicated; Z79.01 Long term (current) use of 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; I10 Essential (primary) hypertension; I25.2 Old myocardial infarction; Z86.73 Personal history of transient ischemic attack (TIA), and cerebral infarction without residual deficits; Z79.899 Other long term (current) drug therapy
CPT/HCPCS: 80053; 81001; 84484; 85025; 85610; 93005; 99285; A4216

== ENCOUNTER 2023-02-11 19:46 | Observation (INO) | payer MEDICARE, SELFPAY ==
[2023-02-11] VITALS (13 sets, daily range): BP systolic 146–201; BP diastolic 99–163; PULSE 70–97; RESP 14–94; TEMP 36.3; O2SAT 23–100; BMI 22.6; BMI 24.2
[2023-02-11] MEDS: Ondansetron 4 MG/2 ML Vial IV (19:50)
--- NOTE | 2023-02-11 19:51 | RAD_ITS ---
STUDY: X-RAY - LEFT SHOULDER REASON FOR EXAM: Female, 73 years old. pain, truama TECHNIQUE: 2 view(s) of the shoulder. COMPARISON: None. FINDINGS: Anterior dislocation of glenohumeral joint. Normal acromioclavicular joint. Normal acromion. Normal humeral head and visualized proximal humerus. The soft tissue structures are unremarkable. Normal visualized pulmonary apex. RAD/Shoulder min 2 Views IMPRESSION: Anterior dislocation glenohumeral joint. Electronically Signed: Taj Smith MD at 21:36 EST ,
--- NOTE | 2023-02-11 19:51 | CT_ITS ---
We are attempting to reach an attending provider to discuss findings. An addendum with communication details will be sent when the communication is complete. INDICATION: Neuro deficit, acute, stroke suspected EXAMINATION: CT BRAIN - CT Head Stroke Protocol W/O Contrast Injection TECHNIQUE: Multiple axial images were obtained of the head without intravenous contrast. A radiation dose optimization technique was used for this scan. IV Contrast dosage and agent: None. RADIATION DOSAGE (If Supplied By Facility): CTDIvol = ( ) mGy, DLP = ( ) mGycm COMPARISON: FINDINGS: BRAIN PARENCHYMA: No intra- or extra-axial hemorrhage. No evidence of acute infarct. No intracranial mass or mass effect. There is preservation of the neri/white matter interface. Posterior fossa structures are unremarkable. CSF SPACES: Appropriate for age. No hydrocephalus. Basal cisterns are patent. CALVARIUM, SKULL BASE, PARANASAL SINUSES AND MASTOID AIR CELLS: Clear. No discrete lytic or blastic abnormalities. ORBITS: Both globes, extraocular muscles, optic nerves and retrobulbar fat appear unremarkable. ASPECTS Score for Acute Strokes: 10 CT/STROKE Brain/Head without Cont IMPRESSION: Negative Brain CT without contrast. Electronically Signed: Taj Smith MD at 20:11 EST ,
--- NOTE | 2023-02-11 19:52 | CT_ITS ---
We are attempting to reach an attending provider to discuss findings. An addendum with communication details will be sent when the communication is complete. STUDY: CTA HEAD AND NECK WITH CONTRAST REASON FOR EXAM: Female, 73 years old. Neuro deficit, acute, stroke suspected RADIATION DOSAGE (If Supplied By Facility): CTDIvol = ( 25.79 ) mGy, DLP = ( 658.30 ) mGycm TECHNIQUE: CT angiography was performed with a multi-detector CT scanner. Data acquisition was obtained from the skull base through the vertex following intravenous administration of IV 100mL [id number]. MIP images were reconstructed from the axial data set. Post-processing of the angiographic images was performed, with multiplanar reformation and 3D reconstruction. Individualized dose optimization techniques were used for this CT. COMPARISON: No relevant priors. FINDINGS: Normal bilateral petrous carotid arteries. There is calcified plaque formation of the right cavernous carotid artery, without a cross-sectional luminal stenosis. There is calcified plaque formation of the left cavernous carotid artery, without a cross-sectional luminal stenosis. There is non-visualization of the right A1 segment of the anterior cerebral arteries consistent with either aplastic development or an occlusion. Normal left A1 segments of the anterior cerebral artery. Normal intact anterior communicating artery (ACOM). Normal bilateral A2 segments of the anterior cerebral arteries. Normal right M1 and M2 segments of the middle cerebral arteries, with a normal M1 bifurcation. Normal left M1 and M2 segments of the middle cerebral arteries, with a normal M1 bifurcation. Normal right posterior communicating artery (PCOM). Normal left posterior communicating artery (PCOM). There is a small atretic right vertebral artery terminates as the right posterior inferior cerebellar artery with a dominant left vertebral artery. Normal basilar artery with a normal basilar bifurcation. The visualized bilateral superior cerebellar (SCA) arteries are normal. Normal bilateral P1, P2 and visualized P3 segments of the posterior cerebral arteries. There is no demonstrated aneurysm of the [place]. There is no demonstrated abnormality of the visualized brain. AORTIC ARCH: Normal visualized aortic arch. Normal origins of the brachiocephalic, left common carotid, and left subclavian arteries. RIGHT CAROTID ARTERIES: Normal right common carotid artery (CCA). There is mild atherosclerotic plaque formation with minimal narrowing of the right carotid bulb. There is mild atherosclerotic plaque formation of the origin of the right internal carotid artery with less than 50% cross sectional diameter stenosis. There is atherosclerotic tortuous elongation of the cervical portion of the right internal carotid artery. Normal origin of the right external carotid artery (ECA). LEFT CAROTID ARTERIES: Normal left common carotid artery (CCA). There is moderate atherosclerotic plaque formation with moderate narrowing of the carotid bulb. There is mild atherosclerotic plaque formation of the origin of the left internal carotid artery with less than 50% cross sectional diameter stenosis. Normal visualized cervical portion of the left internal carotid artery. Normal origin of the left external carotid artery (ECA). VERTEBRAL ARTERIES: There is enhancement within the bilateral vertebral arteries with a small right vertebral artery, and a dominant left vertebral artery. CT/STROKE CTA Head AND Neck W/Con IMPRESSION: Normal CTA Head with contrast. Mild (20%) right carotid stenosis. Mild (40%) left carotid stenosis. Patent vertebral arteries bilaterally. The right vertebral artery is hypoplastic and terminates in the right posterior inferior cerebellar artery. Electronically Signed: Taj Smith MD at 20:47 EST ,
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
[2023-02-11 19:59] LABS: Absolute Lymphocyte Count 2.13 X10^3/uL (0.83-4.51); Absolute Neutrophil Count 3.3 X10^3/uL (2.0-7.7); Basophil# 0.08 X10^3/uL; Basophil% 1.3 % (0-1); Eosinophil# 0.16 X10^3/uL; Eosinophils% 2.5 % (0-5); Hematocrit 44.7 % (37-47); Lymphocyte # 2.13 X10^3/ul (0.83-4.51); Lymphocyte % 33.9 % (19-41); Mean Corp Hgb Conc 33.6 g/dL (32-36); Mean Corpuscular Hgb 31.3 pg (27.0-32.0); Mean Corpuscular Volume 93.3 fL (81-99); Mean Platelet Vol. 9.9 fl (6.2-12.0); Monocyte# 0.54 X10^3/uL; Monocyte% 8.6 % (0-10); NRBC Flagged by Analyzer 0 % (0-5); Neutrophil # 3.34 X10^3/uL (2.7-7.7); Neutrophil % 53.2 % (47-70); POSITIVE MORPHOLOGY YES; Platelet Count 216 K/mm3 (150-450); RBC Distribution Width CV 12.1 % (11.6-14.6); RBC Distribution Width SD 42.4 fl (35.1-43.9); Red Blood Count 4.79 M/mm3 (4.2-5.4); White Blood Count 6.3 K/mm3 (4.4-11.0)
[2023-02-11 20:01] LABS: Differential Indicated SCAN CRITERIA MET
[2023-02-11 20:10] LABS: International Normalized Ratio 2.7; Prothrombin Time (Protime)PT. 28.6 SECONDS (11.7-14.9)
[2023-02-11 20:11] LABS: Partial Thromboplast Time 44.1 Seconds (24.1-36.2)
[2023-02-11 20:18] LABS: Anion Gap 4 (5-15); BUN 11 mg/dL (7-18); BUN/Creat Ratio 17.3 RATIO (10-20); Calcium,Total 8.8 mg/dL (8.5-10.1); Chloride 101 mmol/L (98-107); Creatinine, Serum 0.64 mg/dL (0.55-1.02); EST Glomerular Filtration Rate 97 mL/min (>60); Est Glom Filt Rate - Afr Amer 118 mL/min (>60); Glucose 99 mg/dL (74-106); Potassium 3.4 mmol/L (3.5-5.1); Sodium Level 137 mmol/L (136-145); Troponin-I HS 71 pg/mL (3.0-54.0)
[2023-02-11 20:31] LABS: Differential Comment SCANNED
--- NOTE | 2023-02-11 20:40 | RAD_ITS ---
STUDY: X-RAY CHEST REASON FOR EXAM: Female, 73 years old. Neuro deficit, acute, stroke suspected TECHNIQUE: Single AP portable view of the chest. COMPARISON: None. FINDINGS: Status post heart valve replacement surgery. The lungs are clear and expanded. There is no demonstrated pleural abnormality. There is moderate cardiac enlargement. Normal mediastinum and carmina. Normal visualized pulmonary arteries. Normal visualized aortic arch and descending thoracic aorta. Normal visualized thoracic spine. Normal visualized ribs, clavicles, and shoulders. There is no demonstrated abnormality of the visualized soft tissue structures of the upper abdomen. RAD/Chest 1 View IMPRESSION: No active disease. Cardiomegaly. Electronically Signed: Taj Smith MD at 21:38 EST ,
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
[2023-02-11] MEDS: fentaNYL 100 MCG/2 ML Ampul 50 MCG IV (21:31)
[2023-02-11 21:48] LABS: Bacteria 0 SEEN /hpf (None Seen); Mucous, Urine 0 SEEN /hpf (<or=2+); Squamous Epithelial Cells - UA 0 SEEN /hpf (5-10); White Blood Cells 0 SEEN /hpf (0-5)
[2023-02-11 21:54] LABS: Color, Urine Yellow (Yellow); Glucose, Dipstick Normal (Normal); Ketone-Dipstick Negative (Negative); Leukocyte Esterase-Dipstick Negative /ul (Negative); Nitrite-Dipstick Negative (Negative); Occult Blood-Urine 10 /ul (Negative); Protein-Dipstick 30 mg/dl (Negative); Urine Bilirubin Dipstick Negative (Negative); Urine Clarity Clear (Clear); Urine Urobilinogen Normal (Normal)
[2023-02-11 22:06] LABS: Red Blood Cells-Urine 0-5 SEEN /hpf (0-5)
--- NOTE | 2023-02-11 22:39 | ECHOL_ITS ---
Reason For Study: TIA/CVA Procedure This was a limited 2D transthoracic echocardiogram. Exam performed portable in patient room. Left Ventricle Normal LV size. Severe concentric left ventricular hypertrophy. The left ventricular ejection fraction is 65 %. Right Ventricle Normal right ventricle. Atria The left atrium is severely enlarged. The right atrium is mildly enlarged. Bubble contrast study is negative for PFO/ASD. Mitral Valve Mild diffuse mitral valve thickening. Tricuspid Valve Normal tricuspid valve. Aortic Valve Aortic valve not well-visualized in short axis. Possible bioprosthetic valve. Pulmonic Valve The pulmonic valve is not well visualized. Great Vessels The aortic root is not well visualized. Pericardium/Pleural No pericardial effusion. Medication Performed a rapid injection of agitated mix of 9 cc saline and 1cc air to assess for atrial septal defect. MMode/2D Measurements & Calculations LVIDd: 3.6 cm IVSd: 1.7 cm LVIDs: 2.5 cm LVPWd: 1.7 cm LVAd ap4: 20.4 cm2 FS: 30.5 % LVLd ap4: 7.0 cm EDV(MOD-sp4): 49.8 ml EDV(sp4-el): 50.3 ml LVAs ap4: 12.3 cm2 LVLs ap4: 6.4 cm ESV(MOD-sp4): 20.9 ml ESV(sp4-el): 20.1 ml EF(MOD-sp4): 58.0 % EF(sp4-el): 60.1 % SV(MOD-sp4): 28.9 ml SV(sp4-el): 30.2 ml ECHO/Echo, Limited Study Interpretation Summary Severe concentric left ventricular hypertrophy. The left ventricular ejection fraction is 65 %. The left atrium is severely enlarged. The right atrium is mildly enlarged. Mild diffuse mitral valve thickening. Bubble contrast study is negative for PFO/ASD. Aortic valve not well-visualized in short axis. Possibly bioprosthetic valve. Limited 2D echocardiogram with no Doppler. Ordering Physician: Ángel Jordan Referring Physician: Chelita Beltran Performed By: Leticia Mancilla RDCS, RVT
[2023-02-12] VITALS (8 sets, daily range): BP systolic 130–211; BP diastolic 98–130; PULSE 64–112; RESP 16–18; TEMP 36.1–36.9; O2SAT 94–98; BMI 24.2
[2023-02-12] MEDS: Potassium Chloride Oral Tablet 20 MEQ 40 MEQ PO ×3 (01:42→23:46)
[2023-02-12] MEDS: Magnesium Sulfate 1 GM in Dextrose 5%-Water (100mL Bag) 100 ML IV (01:43)
[2023-02-12] MEDS: 0.9% Saline Lock 10 ML Syringe IV ×3 (01:43→12:24)
[2023-02-12] MEDS: Amiodarone 200 MG Tablet PO ×2 (07:54→15:29)
[2023-02-12] MEDS: Multivitamins,Therapeutic Tablet 1 TABLET PO (07:54)
[2023-02-12] MEDS: Aspirin 81 MG TAB.CHEW PO (07:54)
[2023-02-12] MEDS: carBAMazepine 200 MG Tablet 400 MG PO ×2 (07:54→22:13)
[2023-02-12 08:38] LABS: International Normalized Ratio 3.2; Prothrombin Time (Protime)PT. 33.1 SECONDS (11.7-14.9)
[2023-02-12 09:08] LABS: Cholesterol 138 mg/dL (200); High Density Lipoprotein 60 mg/dL; Triglycerides 97 mg/dL; Very Low Density Lipoprotein 19 mg/dL (5-40)
--- NOTE | 2023-02-12 09:30 | MRI_ITS ---
ACR Level 3 findings have been noted. An addendum which confirms receipt of the report will follow. HISTORY: TIA versus CVA with severe left-sided weakness and unsteady gait. TECHNIQUE: Multiplanar and multisequence MR images of the brain were obtained without contrast. 278 images. COMPARISON: CT prior day. FINDINGS: BRAIN PARENCHYMA: Multiple foci and small zones of increased T2 FLAIR signal in the bilateral cerebral white matter. Small foci of restricted diffusion in the right temporal and occipital lobes. Possible small subacute right frontoparietal infarct. Chronic basal ganglia and cerebellar lacunar infarcts. No acute intracranial hemorrhage identified. CSF SPACES: Moderate volume loss. No significant midline shift or other mass effect.No extra-axial fluid collection. VASCULAR SYSTEM: Major intracranial flow voids are maintained. PARANASAL SINUSES AND MASTOID AIR CELLS: Small right sphenoid sinus mucous retention cyst. ORBITS: Left lens resection. MRI/Brain without Contrast IMPRESSION: Small acute infarcts in the right temporal and occipital lobes. Moderate chronic involutional and white matter changes. Electronically Signed: Liyah Merritt MD at 11:30 EST ,
[2023-02-12 11:31] LABS: Troponin-I HS 77 pg/mL (3.0-54.0)
[2023-02-12] MEDS: Labetalol (Prefilled) 20 MG/4 ML IV (12:23)
[2023-02-12] MEDS: Acetaminophen 500 MG Tablet 1000 MG PO (12:23)
--- NOTE | 2023-02-12 13:26 | CON.PCM.NE_ITS ---
Assessment and Plan: Stroke Assessment/Plan MARK MARTIN, is a 73 left handed female with history of hypertension, CAD, smoker, prior ischemic stroke x2, with residual balance (walker/cane), rheumatic fever, MVP, Afib on coumadin (on it since last year), and cataracts who on 02/11/2023 fell and dislocated her shoulder and also had an episode of left facial droop and dysarthria that resolved within 2 hours. Neurological examination shows nonfocal exam, NIHSS-0. Neuroimaging shows negative CT brain/CTA head/neck. 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 TTE EF 65% severe LA enlargement. INR today 3.2. She is on coumad in/Asa and lipitor 40. Assessment: DWI + TIA. Plan: Stroke mechanism is cardioembolism due to atrial fibrillation. TIA work-up completed. Recommend continuing anticoagulation (patient is on coumadin) for Afib stroke prevention. Patient has a history of rheumatic heart disease so NOAC may not be an ideal choice for her, but will defer to her outpatient cassandra architect. Continue vascular risk factor modification (on lipitor). Given history of recurrent falls - recommend PT evaluation. Please call us with further stroke related questions. Recommendation messaged to primary team Dr. Princess Tyler. HPI Consult Data Date of Consult: 02/12/23 HPI Narrative HPI Narrative: MARK MARTIN is a 73 left handed female with history of hypertension, CAD, smok er, prior ischemic stroke x2, with residual balance (walker/cane), rheumatic fever, MVP, Afib on coumadin (on it since last year), and cataracts who on 02/11/2023 fell and dislocated her shoulder and also had an episode of facial droop and dysarthria. She presented to [facility]. 230/80. CT brain negative. CTA head/neck negative. INR 2.7. Telestroke was called and gave phone advice. She was admitted. MRI brain shows subacute small inferior right MCA branch infarct (DWI bright, ADC not dark, visible on FLAIR) and acute right small CELL EFFICIENCY SUPERVISOR infarct. TTE EF 65% severe LA enlargement. INR today 3.2. She is on coumadin/Asa and lipitor 40. The patient reports she was getting up to go the bathroom 02/11/2023 and her balance was off. She went back to couch to lay down. This was around 6p (she had just taken her 6p meds). She did npt make it to the couch so she called her sister in law who came over. The patient then fell trying to get the front door open and she thinks she dislocated her shoulder at that time. EMS told her that she had right facial droop and slurred speech (but she did not notice), but she thinks it lasted less than a couple hours. Patient feels back to baseline to normal currently. Patient reports she has frequent falls, 1-2x/week. She lives alone. [facility] Medical History Atrial fibrillation Mitral prolapse Myocardial infarction Rheumatic fever Stroke Home Medications amiodarone 200 mg tablet 200 mg PO BID 02/11/23 [History Last Taken Unknown] amlodipine 10 mg tablet 10 mg PO DAILY HTN 02/11/23 [History Last Taken Unknown] atorvastatin 40 mg tablet 40 mg PO QHS HYPERLIPIDEMIA 02/11/23 [History Last Taken Unknown] calcium carbonate-vitamin D3 .ROUTE 02/11/23 [History Last Taken Unknown] carbamazepine 200 mg tablet 400 mg PO Q12H EPILEPSEY 02/11/23 [History Last Taken Unknown] clonidine HCl 0.3 mg tablet 0.3 mg PO Q8H BP 02/11/23 [History Last Taken Unknown] hydralazine 10 mg tablet mg 02/11/23 [History Last Taken Unknown] hydralazine 100 mg tablet 100 mg PO Q8H 02/11/23 [History Last Taken Unknown] labetalol 100 mg tablet 100 mg PO Q12H 02/11/23 [History Last Taken Unknown] multivitamin (Daily Multi-Vitamin tablet) 1 tab PO DAILY 02/11/23 [History Last Taken Unknown] polymyxin B sulfate 10,000 unit-trimethoprim 1 mg/mL eye drops ophthalmic (eye) BID CATARACTS 02/11/23 [History Last Taken Unknown] valsartan 160 mg tablet 160 mg PO BID BP 02/11/23 [History Last Taken Unknown] warfarin 3 mg tablet 4.5 mg PO 02/11/23 [History Last Taken Unknown] Allergy/AdvReac Type Severity Reaction Status Date / Time codeine Allergy Intermediate Other Verified 02/11/23 20:37 ibuprofen Allergy Intermediate Itching Verified 02/11/23 20:37 naproxen [From Naprosyn] Allergy Intermediate Rash Verified 02/11/23 20:37 Surgical History S/P left knee arthroscopy Social History Smoking Status: Current every day smoker tobacco type: cigarettes Vital Signs Vital Signs Vital Signs: 02/11/23 19:51 02/11/23 19:46 02/11/23 20:00 Temperature 97.3 F L Temperature Source Temporal Pulse Rate 73 Respiratory Rate 18 Respiratory Effort Respiratory Depth Respiratory Pattern Blood Pressure 201/129 H Blood Pressure Mean 153 Blood Pressure Source Blood Pressure Position Blood Pressure Location Pulse Ox 100 Oxygen Delivery Method Room Air Room Air 02/11/23 20:15 02/11/23 20:30 02/11/23 20:45 Temperature Temperature Source Pulse Rate 70 72 75 Respiratory Rate 16 20 H 18 Respiratory Effort Respiratory Depth Respiratory Pattern Blood Pressure 198/105 H 178/135 H 171/122 H Blood Pressure Mean 136 149 138 Blood Pressure Source Blood Pressure Position Blood Pressure Location Pulse Ox 95 96 98 Oxygen Delivery Method Room Air Room Air Room Air 02/11/23 20:44 02/11/23 21:00 02/11/23 21:15 Temperature 97.3 F L Temperature Source Temporal Pulse Rate 91 89 Respiratory Rate 15 14 Respiratory Effort Respiratory Depth Respiratory Pattern Blood Pressure 154/103 H 164/112 H Blood Pressure Mean 120 129 Blood Pressure Source Blood Pressure Position Blood Pressure Location Pulse Ox 94 Oxygen Delivery Method Room Air Room Air 02/11/23 21:30 02/11/23 21:45 02/11/23 22:00 Temperature Temperature Source Pulse Rate 91 86 97 Respiratory Rate 18 14 94 H Respiratory Effort Respiratory Depth Respiratory Pattern Blood Pressure 180/105 H 146/99 H 157/110 H Blood Pressure Mean 130 114 125 Blood Pressure Source Blood Pressure Position Blood Pressure Location Pulse Ox 92 98 23 Oxygen Delivery Method Room Air Room Air Room Air 02/11/23 22:15 02/11/23 23:00 02/12/23 00:25 Temperature 97.3 F L Temperature Source Temporal Pulse Rate 90 70 Respiratory Rate 16 16 Respiratory Effort Normal Non-Labored Respiratory Depth Respiratory Pattern Blood Pressure 175/163 H 165/104 H Blood Pressure Mean 167 124 Blood Pressure Source Monitor Blood Pressure Position Supine Blood Pressure Location Right Arm Pulse Ox 95 97 Oxygen Delivery Method Room Air Room Air Room Air 02/12/23 02:30 02/12/23 06:30 02/12/23 07:38 Temperature 97 F L 97.1 F L 97.4 F L Temperature Source Temporal Temporal Temporal Pulse Rate 67 64 71 Respiratory Rate 16 16 16 Respiratory Effort Respiratory Depth Respiratory Pattern Blood Pressure 132/105 H 170/100 H 145/98 H Blood Pressure Mean 114 123 113 Blood Pressure Source Monitor Monitor Monitor Blood Pressure Position Supine Supine Semi-Fowlers Blood Pressure Location Right Arm Right Arm Left Arm Pulse Ox 95 96 95 Oxygen Delivery Method Room Air Room Air Room Air 02/12/23 07:40 02/12/23 08:10 02/12/23 11:30 Temperature 98.1 F Temperature Source Oral Pulse Rate 73 Respiratory Rate 18 Respiratory Effort Normal Non-Labored Respiratory Depth Normal Respiratory Pattern Normal Blood Pressure 211/130 H Blood Pressure Mean 157 Blood Pressure Source Monitor Blood Pressure Position Semi-Fowlers Blood Pressure Location Right Arm Pulse Ox 94 98 Oxygen Delivery Method Room Air Room Air Room Air Weight Weight: 60 kg Body Mass Index (BMI) 24.2 EEG Results Procedure Details EEG Procedure Details: MARK MARTIN is a 73 year old F with a past medical history of , who presents for evaluation of Electroencephalogram on DATE at TIME NIHSS NIHSS Nursing Documentation NIHSS Nursing Documentation: NIHSS: Ischemic Stroke/TIA Start: 02/11/23 23:17 Freq: Q4 Status: Active Protocol: Activity Type Activity Date Activity User E-sign Co-sign Detail Recorded Client Recorded Date Recorded By Document 02/12/23 07:38 MS Desktop 02/12/23 07:39 MS 02/12/23 07:38 NIH Stroke Scale [NIHSS] A score of 0 is normal or asymptomatic . Total possible score is 42. Inpatient: RN or Physician to activate a stroke alert for onset of new stroke symptoms or with NIHSS increase >/= 3 points. Following change in neurological status, NIHSS will be performed per physician order or more frequently PRN. -1a. Level of Consciousness Alert; keenly responsive -1b. LOC Questions Answers BOTH questions correctly. -1c. LOC Commands Performs both tasks correctly . -2. Best Gaze Normal -3. Visual No visual loss -4. Facial Palsy Normal symmetrical movements -5a. Left Arm No drift; arm holds 90 (or 45 ) degrees for full 10 seconds -5b. Right Arm No drift; arm holds 90 (or 45 ) degrees for full 10 seconds -6a. Left Leg No drift; leg holds 30-degree position for full 5 seconds -6b. Right Leg Drift; leg falls by the end of 5- seconds, but does not hit bed -7. Limb Ataxia Absent -8. Sensory Normal; no sensory loss -9. Best Language No aphasia; normal -10. Dysarthria Normal -11. Extinction and Inattention No abnormality -Total 1 Query Text:A score of 0 is normal or asymptomatic. Total possible score is 42 . ED: Notify Physician for NIHSS increase by > / = 3 points. Inpatient: RN or Physician to activate a stroke alert for NIHSS increase of > / = 3 points. Coma Scale [Assess] -Eye Opening Spontaneous -Motor Obeys Commands -Verbal Oriented [Total] -Coma Scale Total 15 NIHSS 1a. Level of Consciousness: Alert; keenly responsive 1b. LOC Questions: Answers BOTH questions correctly. 1c. LOC Commands: Performs both tasks correctly. 2. Best Gaze: Normal 3. Visual: No visual loss 4. Facial Palsy: Normal symmetrical movements 5a. Left Arm: No drift; arm holds 90 (or 45) degrees for full 10 seconds 5b. Right Arm: No drift; arm holds 90 (or 45) degrees for full 10 seconds 6a. Left Leg: No drift; leg holds 30-degree position for full 5 seconds 6b. Right Leg: No drift; leg holds 30-degree position for full 5 seconds 7. Limb Ataxia: Absent 8. Sensory: Normal; no sensory loss 9. Best Language: No aphasia; normal 10. Dysarthria: Normal 11. Extinction and Inattention: No abnormality Total: 0 Physical Exam Neuro Neuro Narrative: Neurological examination: General:?The patient appears nutritionally appropriate, well-groomed, and appears comfortable in no acute distress.?Mental Status:??The patient?s mental status was normal including orientation.? Language was intact.??Cranial nerves:? Visual peacock full, extra-ocular motion was intact. Face motion symmetric.? Bilateral shoulder shrug was intact.? Tongue was midline with normal movement.? There was no dysarthria.?Motor:?Normal strength in all four extremities. No pronator drift.?Sensation:?Intact light touch bilaterally, no extinction.?? Coordination:? Bilateral finger to nose was normal.? There was no dysmetria.? Gait:? deferred Lab / Micro Data 02/11/23 19:50 02/11/23 19:50 Labs: Laboratory Results - last 24 hr 02/11/23 19:50: WBC 6.3, RBC 4.79, Hgb 15.0, Hct 44.7, MCV 93.3, MCH 31.3, MCHC 33.6, RDW Std Deviation 42.4, RDW Coeff of [place] 12.1, Plt Count 216, MPV 9.9, Immature Gran % (Auto) 0.500, Neut % (Auto) 53.2, Lymph % (Auto) 33.9, [place] % (Auto) 8.6, Eos % (Auto) 2.5, Baso % (Auto) 1.3 H, Absolute Neuts (auto) 3.3, Absolute Lymphs (auto) 2.13, Nucleated RBC % 0, Differential Comment SCANNED, PT 28.6 H, INR 2.7, APTT 44.1 H, Sodium 137, Potassium 3.4 L, Chloride 101, Carbon Dioxide 32.0, Anion Gap 4 L, BUN 11, Creatinine 0.64, Estim Creat Clear Calc 48.00, Est GFR (MDRD) Af Amer 118, Est GFR (MDRD) Non-Af 97, BUN/Creatinine Ratio 17.3, Glucose 99, Calcium 8.8, Troponin I High Sens 71 H 02/11/23 21:39: Urine Color Yellow, Urine Clarity Clear, Urine pH 8.0, Ur Specific [place] 1.010, Urine Protein 30 H, Urine Glucose (UA) Normal, Urine Ketones Negative, Urine Occult Blood 10 H, Urine Nitrite Negative, Urine Bilirubin Negative, Urine Urobilinogen Normal, Ur Leukocyte Esterase Negative, Urine RBC 0-5 SEEN, Urine WBC 0 SEEN, Ur Squamous Epith Cells 0 SEEN, Urine Bacteria 0 SEEN, Urine Mucus 0 SEEN 02/12/23 07:49: PT 33.1 H, INR 3.2, Triglycerides 97, Cholesterol 138, LDL Cholesterol 59, VLDL Cholesterol 19, HDL Cholesterol 60 02/12/23 10:46: Troponin I High Sens 77 H Rhythm Strip Rhythm Strip: A-fib Rate: 75 Ectopy: None Imagaing Radiology Impression Brain CT 02/11/23 19:51 IMPRESSION: Negative Brain CT without contrast. Electronically Signed: Taj Smith MD at 20:11 EST Reading Location ID and State: 994 / [employer] , Service support , ADDENDUM: 02/11/232018 IMPRESSION: Negative Brain CT without contrast. N.B. : The above Results were Read Back by Taj Smith MD to Ava Good DO, and understanding confirmed on 02/11/2023 20:12:18 (ET). Electronically Signed: Taj Smith MD at 20:11 EST Reading Location ID and State: 994 / [employer] , Service support , ADDENDUM: 02/11/232020 IMPRESSION: Negative Brain CT without contrast. N.B. : The above Results were Read Back by Taj Smith MD to Ava Good DO, and understanding confirmed on 02/11/2023 20:14:30 (ET). Electronically Signed: Taj Smith MD at 20:11 EST Reading Location ID and State: 994 / [employer] , Service support , Shoulder X-Ray 02/11/23 19:51 IMPRESSION: Anterior dislocation glenohumeral joint. Electronically Signed: Taj Smith MD at 21:36 EST Reading Location ID and State: 254 / [employer] , Service support , Head/Neck CTA 02/11/23 19:52 IMPRESSION: Normal CTA Head with contrast. Mild (20%) right carotid stenosis. Mild (40%) left carotid stenosis. Patent vertebral arteries bilaterally. The right vertebral artery is hypoplastic and terminates in the right posterior inferior cerebellar artery. Electronically Signed: Taj Smith MD at 20:47 EST Reading Location ID and State: 284 / [employer] , Service support , ADDENDUM: 02/11/232057 IMPRESSION: Normal CTA Head with contrast. Mild (20%) right carotid stenosis. Mild (40%) left carotid stenosis. Patent vertebral arteries bilaterally. The right vertebral artery is hypoplastic and terminates in the right posterior inferior cerebellar artery. N.B. : The above Results were Read Back by Taj Smith MD to vAa Good DO, and understanding confirmed on 02/11/2023 20:51:23 (ET). Electronically Signed: Taj Smith MD at 20:47 EST Reading Location ID and State: [id number] / [employer] , Service support , Chest X-Ray 02/11/23 20:40 IMPRESSION: No active disease. Cardiomegaly. Electronically Signed: Taj Smith MD at 21:38 EST Reading Location ID and State: 504 / [employer] , Service support , Echocardiogram 02/11/23 22:39 Interpretation Summary Severe concentric left ventricular hypertrophy. The left ventricular ejection fraction is 65 %. The left atrium is severely enlarged. The right atrium is mildly enlarged. Mild diffuse mitral valve thickening. Bubble contrast study is negative for PFO/ASD. Aortic valve not well-visualized in short axis. Possibly bioprosthetic valve. Limited 2D echocardiogram with no Doppler. Ordering Physician: Ángel Jordan Referring Physician: Chelita Beltran Performed By: Roof, Leticia, RDCS, RVT Brain MRI 02/12/23 09:30 IMPRESSION: Small acute infarcts in the right temporal and occipital lobes. Moderate chronic involutional and white matter changes. Electronically Signed: Liyah Merritt MD at 11:30 EST Reading Location ID and State: [address] [address] Tel , Service support , ADDENDUM: 02/12/23 1147 IMPRESSION: Small acute infarcts in the right temporal and occipital lobes. Moderate chronic involutional and white matter changes. N.B. : Nikolas Tilley RN, confirmed on 02/12/2023 11:40:55 (ET) that the healthcare facility has received the radiology report. Electronically Signed: Liyah Mreritt MD at 11:30 EST Reading Location ID and State: [facility] / [place] Tel , Service support , Active Medications Active Medications Active Medications: Current Medications Generic Name Dose Route Start Last Admin Trade Name Freq PRN Reason Stop Dose Admin Acetaminophen 650 mg 02/11/23 23:36 Acetaminophen 325 Mg Tablet PO Q4H PRN PRN Pain 1-10 Or Fever>99.6 Amiodarone HCl 200 mg 02/12/23 08:00 02/12/23 07:54 Amiodarone 200 Mg Tablet PO 200 mg BIDCM ERIN Administration Aspirin 81 mg 02/12/23 08:00 02/12/23 07:54 Aspirin 81 Mg Tab.Chew PO 81 mg BREAKFAST ERIN Administration Atorvastatin Calcium 40 mg 02/12/23 22:00 Atorvastatin Calcium 40 Mg Tablet PO QHS ERIN Carbamazepine 400 mg 02/12/23 10:00 02/12/23 07:54 Carbamazepine 200 Mg Tablet PO 400 mg Q12 ERIN Administration Labetalol HCl 20 mg 02/11/23 19:51 02/12/23 12:23 Labetalol (Prefilled) 20 Mg/4 Ml IV 20 mg X1 PRN Administration BLOOD PRESSURE Multivitamins 1 tablet 02/12/23 08:00 02/12/23 07:54 Multivitamins,Therapeutic Tablet PO 1 tablet DAILYCM ERIN Administration Sodium Chloride 10 - 40 ml 02/11/23 22:48 02/12/23 12:24 0.9% Saline Lock 10 Ml Syringe IV 10 ml UD PRN Administration SALINE FLUSH Warfarin Sodium 2.5 mg 02/14/23 17:00 Warfarin 2.5 Mg Tablet PO [email or web address]@1700 [facility] Warfarin Sodium 2.5 mg 02/14/23 17:00 Jantoven 2 Mg Tablet PO [email or web address]@1700 [facility]
--- NOTE | 2023-02-12 13:51 | EKG12_ITS ---
Test Reason : GENERAL Blood Pressure : / mmHG Vent. Rate : 061 BPM Atrial Rate : 244 BPM P-R Int : 000 ms QRS Dur : 106 ms QT Int : 444 ms P-R-T Axes : 066 014 073 degrees QTc Int : 446 ms 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 with variable A-V block with ventricular escape complexes Minimal voltage criteria for LVH, may be normal variant ( Ruben product ) Anteroseptal infarct , age undetermined Abnormal ECG When compared with ECG of 11-FEB-2023 20:27, MANUAL COMPARISON REQUIRED, DATA IS UNCONFIRMED Confirmed by ARCELIA SAVAGE, NICOLETTE ([id number]), city editor ROSANNE SAMAYOA ([id number]) on 02/15/2023 10:16:40 AM Referred By: Confirmed By:NICOLETTE PANIAGUA MD
--- NOTE | 2023-02-12 15:02 | PCM.PN.HOSP ---
Reason for Visit Reason for Visit: Headache/slurred speech/left shoulder pain after fall Subjective Subjective Ms. Holland is a 73-year-old white female who presents emergency department at [facility] complaining of headache, generalized weakness, slurred speech and a fall with persistent left shoulder pain. Her symptoms started about 1300 with her blood pressure spiking to 230/80. Repeat blood pressure was 200/80. EMS was activated and the patient began complaining of sweating and episode of diplopia with generalized weakness in both her legs. Her friend also reported in the emergency department that she had some mildly slurred speech and a faint left facial droop so a stroke alert was called on route. The patient also complained of left shoulder pain after sustaining a fall at home in conjunction with his event. The shoulder was found to be dislocated and reduced in the emergency department. She is on Coumadin at baseline for history of stroke and history of rheumatic fever with valvular disease. She has a history of CABG with valvular replacement. Her INR was therapeutic at 2.7 on admission and she reported she had been supratherapeutic last time she had it checked at home at 4.5. Given the findings a stroke was of concern and stroke protocol was followed. CT a head and neck of the brain demonstrated no acute abnormalities. 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 She was admitted to the PCU for ongoing stroke protocol. Her initial NIH was 5 but she quickly returned to an NIH of 0. Since admission her NIH has had been fluctuating with the most recent being a 1 for right leg drift. She was seen by physical and Occupational Therapy and they are recommending ongoing therapy either as an outpatient or with home health. MRI was performed and shows small acute infarcts in the right temporal and occipital lobes along with moderate chronic involutional and white matter changes. This is likely cardioembolic. She is and has been on Coumadin and as of recently has been therapeutic however I am unclear what her overall INR's have been over time so there could have been an area of time which she was subtherapeutic which precipitated clot formation and cause these infarcts. I discussed the case with the neurologist who evaluated the patient and they recommended Coumadin at this time as it appears that she is specifically on Coumadin for rheumatic heart disease however for basin cleaner as an outpatient feels that they can transition her from Coumadin to one of the other therapies including Xarelto or Eliquis I will leave that to them to do so. An echocardiogram was performed and showed severe concentric LVH due to her chronic hypertension, an EF of 65% with a severely enlarged LA and mildly enlarged RA. Bubble study was negative and her aortic valve was not well-visualized but bioprosthetic valve is suspected Patient states today she feels back to normal. Her blood pressure has been problematic as an outpatient and seems to fluctuate quite a bit. I discussed that we will start her antihypertensives here today and monitor blood pressure and see if we can come up with a better regimen for her however she may need to meet with her primary care doctor and her basin cleaner if her blood pressures appear to be stable on her current regimen. Objective Data Objective Data Vital Signs: Vital Signs Temp Pulse Resp BP Pulse Ox O2 Del Method 98.1 F 73 18 211/130 H 98 Room Air 02/12/23 11:30 02/12/23 11:30 02/12/23 11:30 02/12/23 11:30 02/12/23 11:30 02/12/23 11:30 Oxygen Delivery Method Room Air Weight: 60 kg Body Mass Index (BMI) 24.2 Intake & Output: Intake and Output for Last 24 Hours 02/10/23 02/11/23 02/12/23 23:59 23:59 23:59 Intake Total 582 / 582 Output Total 600 / 600 Balance -18 / -18 Lab / Micro Data 02/11/23 19:50 02/11/23 19:50 Labs: Laboratory Results - last 24 hr 02/11/23 19:50: WBC 6.3, RBC 4.79, Hgb 15.0, Hct 44.7, MCV 93.3, MCH 31.3, MCHC 33.6, RDW Std Deviation 42.4, RDW Coeff of Geena 12.1, Plt Count 216, MPV 9.9, Immature Gran % (Auto) 0.500, Neut % (Auto) 53.2, Lymph % (Auto) 33.9, Lewis % (Auto) 8.6, Eos % (Auto) 2.5, Baso % (Auto) 1.3 H, Absolute Neuts (auto) 3.3, Absolute Lymphs (auto) 2.13, Nucleated RBC % 0, Differential Comment SCANNED, PT 28.6 H, INR 2.7, APTT 44.1 H, Sodium 137, Potassium 3.4 L, Chloride 101, Carbon Dioxide 32.0, Anion Gap 4 L, BUN 11, Creatinine 0.64, Estim Creat Clear Calc 48.00, Est GFR (MDRD) Af Amer 118, Est GFR (MDRD) Non-Af 97, BUN/Creatinine Ratio 17.3, Glucose 99, Calcium 8.8, Troponin I High Sens 71 H 02/11/23 21:39: Urine Color Yellow, Urine Clarity Clear, Urine pH 8.0, Ur Specific [place] 1.010, Urine Protein 30 H, Urine Glucose (UA) Normal, Urine Ketones Negative, Urine Occult Blood 10 H, Urine Nitrite Negative, Urine Bilirubin Negative, Urine Urobilinogen Normal, Ur Leukocyte Esterase Negative, Urine RBC 0-5 SEEN, Urine WBC 0 SEEN, Ur Squamous Epith Cells 0 SEEN, Urine Bacteria 0 SEEN, Urine Mucus 0 SEEN 02/12/23 07:49: PT 33.1 H, INR 3.2, Triglycerides 97, Cholesterol 138, LDL Cholesterol 59, VLDL Cholesterol 19, HDL Cholesterol 60 02/12/23 10:46: Troponin I High Sens 77 H Radiography Diagnostic Testing: Radiology Impression Brain CT 02/11/23 19:51 IMPRESSION: Negative Brain CT without contrast. Electronically Signed: Taj Smith MD at 20:11 EST Reading Location ID and State: [id number] / [employer] , Service support , ADDENDUM: 02/11/232018 IMPRESSION: Negative Brain CT without contrast. N.B. : The above Results were Read Back by Taj Smith MD to Ava Good DO, and understanding confirmed on 02/11/2023 20:12:18 (ET). Electronically Signed: Taj Smith MD at 20:11 EST Reading Location ID and State: [id number] / [employer] , Service support , ADDENDUM: 02/11/232020 IMPRESSION: Negative Brain CT without contrast. N.B. : The above Results were Read Back by Taj Smith MD to Ava Good DO, and understanding confirmed on 02/11/2023 20:14:30 (ET). Electronically Signed: Taj Smith MD at 20:11 EST Reading Location ID and State: [id number] / [employer] , Service support , Shoulder X-Ray 02/11/23 19:51 IMPRESSION: Anterior dislocation glenohumeral joint. Electronically Signed: Taj Smith MD at 21:36 EST Reading Location ID and State: [employer] / [employer] , Service support , Head/Neck CTA 02/11/23 19:52 IMPRESSION: Normal CTA Head with contrast. Mild (20%) right carotid stenosis. Mild (40%) left carotid stenosis. Patent vertebral arteries bilaterally. The right vertebral artery is hypoplastic and terminates in the right posterior inferior cerebellar artery. Electronically Signed: Taj Smith MD at 20:47 EST Reading Location ID and State: [id number] / [employer] , Service support , ADDENDUM: 02/11/232057 IMPRESSION: Normal CTA Head with contrast. Mild (20%) right carotid stenosis. Mild (40%) left carotid stenosis. Patent vertebral arteries bilaterally. The right vertebral artery is hypoplastic and terminates in the right posterior inferior cerebellar artery. N.B. : The above Results were Read Back by Taj Smith MD to Ava Good DO, and understanding confirmed on 02/11/2023 20:51:23 (ET). Electronically Signed: Taj Smith MD at 20:47 EST Reading Location ID and State: [id number] / [employer] , Service support , Chest X-Ray 02/11/23 20:40 IMPRESSION: No active disease. Cardiomegaly. Electronically Signed: Taj Smith MD at 21:38 EST , Echocardiogram 02/11/23 22:39 Interpretation Summary Severe concentric left ventricular hypertrophy. The left ventricular ejection fraction is 65 %. The left atrium is severely enlarged. The right atrium is mildly enlarged. Mild diffuse mitral valve thickening. Bubble contrast study is negative for PFO/ASD. Aortic valve not well-visualized in short axis. Possibly bioprosthetic valve. Limited 2D echocardiogram with no Doppler. Ordering Physician: Ángel Jordan Referring Physician: Chelita Beltran Performed By: Leticia Mancilla, ROSLYN, RVT Brain MRI 02/12/23 09:30 IMPRESSION: Small acute infarcts in the right temporal and occipital lobes. Moderate chronic involutional and white matter changes. Electronically Signed: Liyah Merritt MD at 11:30 EST , ADDENDUM: 02/12/23 1147 IMPRESSION: Small acute infarcts in the right temporal and occipital lobes. Moderate chronic involutional and white matter changes. N.B. : Nikolas Tilley RN, confirmed on 02/12/2023 11:40:55 (ET) that the healthcare facility has received the radiology report. Electronically Signed: Liyah Merritt MD at 11:30 EST , Rhythm Strip Rhythm Strip: A-fib Rate: 75 Ectopy: None Physical Exam Const alert, oriented x3, no apparent distress, average body habitus and well nourished Constitutional Narrative: Older, white female, sitting up in bed, appears older than stated age, nontoxic, sister at bedside, very pleasant HEENT head/scalp atraumatic and moist oral mucous membranes HEENT Narrative: Dentures in place, Mallampati is 2, no thrush Head and Scalp: normocephalic Resp normal respiratory effort, no retractions, no use of accessory muscles and clear to auscultation bilaterally Resp Narrative: Diffusely diminished but clear Auscultation: Negative for rales, rhonchi or wheezes Cardio regular rate, S1 normal heart sound, no murmurs, no rub, no gallops and no clicks; Negative for regular rhythm or S2 normal heart sound Cardio Narrative: Irregularly irregular rhythm with loud S2 GI normal to inspection, nondistended, normoactive bowel sounds, soft to palpation and non-tender Extremity no clubbing, cyanosis or edema Extremity Narrative: Pulses are 2+ Neuro oriented x3, CN's II-XII intact bilaterally, moves all extremities and no focal motor deficits Speech: speech normal Psych affect normal Psych Narrative: Pleasant, interacts appropriately Assessment & Plan Assessment/Plan (1) Acute stroke due to ischemia: (2) Hypokalemia: (3) Elevated troponin I level: (4) Carotid artery stenosis: PLAN: Plan Acute right hemispheric cardioembolic stroke -MRI demonstrated small acute infarcts in the right temporal and occipital lobes -Continue aspirin -Continue Coumadin--> will have patient discuss at follow-up with cardiology if she could transition from Coumadin to Eliquis or Xarelto as I suspect her strokes are cardioembolic and may be related to periods of time when she has been subtherapeutic on her INR -INR is currently therapeutic at 3.2 -Continue atorvastatin at current dose as patient's lipids are at goal with an LDL of 59 -Echo was performed and was negative for bubble study, severe concentric LVH was noted with an EF of 65% and severe left atrial enlargement with mild right atrial enlargement -Continue NIH as -Will start some of her antihypertensives as her blood pressure remains quite elevated -PT and OT both thought she would benefit from ongoing therapy at discharge as an outpatient with home health versus true outpatient physical therapy Carotid artery stenosis -Mild bilateral at 20% on left and 40% on right -Continue risk factor modification -Ongoing outpatient follow-up -Recommend tobacco cessation Troponin elevation -Very mild -Echo shows no wall motion abnormality -Likely related to marked hypertension -Will try to obtain better control of her blood pressures Hypokalemia -Potassium replacement ordered -Recheck in a.m. Mechanical falls -Continue therapy after discharge with home health versus outpatient therapy Left shoulder dislocation secondary to fall -Will refer patient for Ortho follow-up after discharge -Dislocation was reduced in the emergency department on admission History of stroke -Continue risk factor modification -Highly suggest tobacco cessation -Continue full anticoagulation and it would behoove the patient to maintain between 2 and 3 without any subtherapeutic INRs Hypertension -Patient states has been very labile and hard to control -Will home regimen now of amlodipine 10 mg daily, Hydralazine 10 mg every 8, Labetalol 10 mg every 12 hours, and valsartan 160 p.o. twice daily -Hold home clonidine for now -Monitor blood pressure and we may need to make some adjustments depending on trends Hyperlipidemia -LDL is at goal at 59 -Will continue home statin CAD/rheumatic aortic valve disease -Status post bypass with aortic valve replacement -Continue risk factor modification -Recommend tobacco cessation -Patient follows with cardiology over in [place] History of epilepsy -Continue home carbamazepine Persistent atrial fibrillation -Continue Coumadin--> currently slightly supratherapeutic at 3.2 however I would prefer she stay between 2.5 and 3.5 with her stroke history -Restart home beta-aaron -Continue home amiodarone Tobacco abuse -Highly suspect patient has COPD at baseline -Recommend cessation -Nicotine patch if needed DVT prophylaxis -Patient fully anticoagulated and therapeutic on Coumadin Charges/Coding Visit Charges Inpatient E&M: 05104 Subs Hosp L2
[2023-02-12] MEDS: Labetalol 100 MG Tablet PO ×2 (15:29→22:14)
--- NOTE | 2023-02-12 15:40 | CASEMGMT ---
GONZALO CABALLERO in to discuss [facility] form with patient. GONZALO CABALLERO explained [facility] form, patient voiced understanding. Pt signed form and filed in chart. Pt provided with a copy of signed [facility] form. Patient had no further questions or concerns at this time. GONZALO CABALLERO into pt room, pt sitting up in chair with nurse at bedside. Pt states she is active with [facility]. She is agreeable to adding therapy at this time. TC to [facility] and left message. Pt states she lives alone and recently her passed. She lives in a one story home with 4 steps to enter with a rail on both sides. Pt has a cane and walker at home. She denies any further needs at this time.
--- NOTE | 2023-02-12 16:04 | CASEMGMT ---
Social Work Pt completed PHQ-9 w/SW. Pt tearful, though it is due to losing her in December. Pt did participate in some groups at [facility] for bereavement. SW encouraged pt to continue to stay involved. Support given. SW offered a list of mental health resources, pt declined information. DANUTA Massey
[2023-02-12] MEDS: hydrALAZINE 50 MG Tablet 100 MG PO (22:07)
[2023-02-12] MEDS: Atorvastatin Calcium 40 MG Tablet PO (22:12)
[2023-02-12] MEDS: Losartan Potassium 50 MG Tablet PO (22:12)
[2023-02-13] VITALS: BP 163/133; PULSE 93; RESP 16; TEMP 36.8; O2SAT 95
[2023-02-13 01:54] VITALS: BMI 24.2
[2023-02-13 03:40] VITALS: BP 126/113; PULSE 103; RESP 18; TEMP 36.7; O2SAT 95
[2023-02-13 05:40] VITALS: BP 126/113; PULSE 103
[2023-02-13] MEDS: hydrALAZINE 50 MG Tablet 100 MG PO (05:40)
[2023-02-13 07:29] LABS: AST(SGOT) 18 U/L (15-37); Alanine Aminotransfer ALT/SGPT 20 U/L (13-56); Albumin, Serum 3.3 g/dL (3.2-5.0); Alkaline Phosphatase 105 U/L (45-117); Anion Gap 4 (5-15); BUN 12 mg/dL (7-18); BUN/Creat Ratio 18.9 RATIO (10-20); Calcium,Total 8.8 mg/dL (8.5-10.1); Chloride 108 mmol/L (98-107); Creatinine, Serum 0.64 mg/dL (0.55-1.02); EST Glomerular Filtration Rate 97 mL/min (>60); Est Glom Filt Rate - Afr Amer 118 mL/min (>60); Estimated Creatinine Clearance 39.04 ml/min; Globulin 3.4 g/dL (2.2-4.2); Glucose 156 mg/dL (74-106); Magnesium 2.3 mg/dL (1.6-2.6); Phosphorus 2.3 mg/dL (2.5-4.9); Potassium 4.2 mmol/L (3.5-5.1); Protein, Total 6.7 g/dL (6.4-8.2); Sodium Level 139 mmol/L (136-145)
[2023-02-13 08:00] VITALS: BP 190/152; PULSE 83; RESP 16; TEMP 36.8; O2SAT 96
[2023-02-13] MEDS: Labetalol 100 MG Tablet PO (08:25)
[2023-02-13] MEDS: carBAMazepine 200 MG Tablet 400 MG PO (08:26)
[2023-02-13] MEDS: Aspirin 81 MG TAB.CHEW PO (08:26)
[2023-02-13] MEDS: Losartan Potassium 50 MG Tablet PO (08:26)
[2023-02-13] MEDS: Multivitamins,Therapeutic Tablet 1 TABLET PO (08:26)
[2023-02-13] MEDS: 0.9% Saline Lock 10 ML Syringe IV (08:26)
[2023-02-13] MEDS: amLODIPine 10 MG Tablet PO (08:26)
[2023-02-13] MEDS: Amiodarone 200 MG Tablet PO (08:27)
[2023-02-13] MEDS: Clonidine HCl 0.1 MG, Clonidine HCl 0.2 MG 0.299999999999999989 MG PO (08:33)
[2023-02-13] MEDS: Carvedilol 25 MG Tablet PO (10:30)
[2023-02-13 11:35] VITALS: BMI 24.2
[2023-02-13 13:44] VITALS: BP 95/59; PULSE 72; RESP 16; TEMP 36.3; O2SAT 97
--- NOTE | 2023-02-13 14:15 | PCM.DC.SUM ---
Providers Date of Admission: 02/11/23 Date of Discharge: 02/13/23 Primary Care Physician: ROSALBA Chowdary Consultations 02/11/23 23:36 Consult: Tele-Neurology Routine Consulting Provider: [facility] Reason for Consult: Acute Ischemic Stroke/TIA EMERGENT Consult: No MD Notified: Yes Date Notified: 02/11/23 Time Notified: 23:36 Method of Notification: ED Physician Initiated Method of Consult:: Telemedicine Nursing Unit Staff Notify [facility] of Tele-Neurology Consult: Yes Reason For Visit: TIA VERSUS CVA Diagnosis Discharge Diagnosis (1) Acute stroke due to ischemia: Status: Acute Code(s): I63.9 - Cerebral infarction, unspecified (2) Hypokalemia: Status: Acute Code(s): E87.6 - Hypokalemia (3) Elevated troponin I level: Status: Acute Code(s): R79.89 - Other specified abnormal findings of blood chemistry (4) Carotid artery stenosis: Status: Acute Code(s): I65.29 - Occlusion and stenosis of unspecified carotid artery Medications at Discharge Home Medications amiodarone 200 mg tablet 200 mg PO BID 02/11/23 amlodipine 10 mg tablet 10 mg PO DAILY HTN 02/11/23 atorvastatin 40 mg tablet 40 mg PO QHS HYPERLIPIDEMIA 02/11/23 calcium carbonate-vitamin D3 .ROUTE 02/11/23 carbamazepine 200 mg tablet 400 mg PO Q12H EPILEPSEY 02/11/23 clonidine HCl 0.3 mg tablet 0.3 mg PO Q8H BP 02/11/23 hydralazine 100 mg tablet 100 mg PO Q8H 02/11/23 multivitamin (Daily Multi-Vitamin tablet) 1 tab PO DAILY 02/11/23 polymyxin B sulfate 10,000 unit-trimethoprim 1 mg/mL eye drops ophthalmic (eye) BID CATARACTS 02/11/23 valsartan 160 mg tablet 160 mg PO BID BP 02/11/23 warfarin 3 mg tablet 4.5 mg PO DAILY 02/11/23 aspirin 81 mg chewable tablet 81 mg PO BREAKFAST #1 TAB 02/13/23 carvedilol 25 mg tablet 25 mg PO BID #60 tabs 02/13/23 Hospital Course Procedures 2-D Echocardiogram, EKG and - (Reduction of left shoulder dislocation/shoulder imaging/CT brain/CTA head and neck/MRI brain/chest x-ray) Summary of Care Provided Minutes Spent on Discharge: 38 Hospital Course: Ms. Holland is a 73-year-old white female who presented to the emergency department at [facility] on 02/11/2023 complaining of headache, generalized weakness, slurred speech and a fall with persistent left shoulder pain. Her symptoms started about 1300 with her blood pressure spiking to 230/80. Repeat blood pressure was 200/80. EMS was activated and the patient began complaining of sweating and episode of diplopia with generalized weakness in both her legs. Her friend also reported in the emergency department that she had some mildly slurred speech and a faint left facial droop so a stroke alert was called on route. The patient also complained of left shoulder pain after sustaining a fall at home in conjunction with his event. The shoulder was found to be dislocated and reduced in the emergency department. She is on Coumadin at baseline for history of stroke and history of rheumatic fever with valvular disease/persistent atrial fibrillation. She has a history of CABG with valvular replacement. Her INR was therapeutic at 2.7 on admission and she reported she had been supratherapeutic last time she had it checked at home at 4.5. Given the findings and complaints on presentation, a new stroke was of concern and stroke protocol was initiated. CT a head and neck of the brain demonstrated no acute abnormalities. 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 She was admitted to the PCU for ongoing stroke protocol. Her initial NIH was 5 but she quickly returned to an NIH of 0. She did have some fluctuation of her NIH why she was hospitalized but at the time of discharge her NIH was 0 as well. She was seen by Physical and Occupational Therapy and they recommended ongoing therapy either as an outpatient or with home health. Home health care was arranged for her by social work for after discharge. MRI was performed and showed small acute infarcts in the right temporal and occipital lobes along with moderate chronic involutional and white matter changes. This is likely cardioembolic. She is and has been on Coumadin and as of recently has been therapeutic however I am unclear what her overall INR's have been over time so there could have been an area of time which she was subtherapeutic which precipitated clot formation and cause these infarcts. I discussed the case with the neurologist who evaluated the patient and they recommended to continue Coumadin at this time as it appears that she is specifically on Coumadin for rheumatic heart disease and her valve type was unclear even on the echocardiogram, however, if her primary powerhouse electrician feels that they can transition her from Coumadin to one of the other therapies including Xarelto or Eliquis it may be beneficial to do so given current events. An echocardiogram was performed and showed severe concentric LVH due to her chronic hypertension, an EF of 65% with a severely enlarged LA and mildly enlarged RA. Bubble study was negative and her aortic valve was not well-visualized but bioprosthetic valve is suspected. Neurology reevaluated the patient and they recommended that she continue her Coumadin and again try to transition to another medication if possible and appropriate and add aspirin but otherwise felt she was stable for discharge barring any significant issues with going home from physical and occupational therapies perspective. We were able to reinitiate her and home antihypertensives and she was monitored on these. I did transition her labetalol to carvedilol 25 mg p.o. twice daily and she has outpatient follow-up with her powerhouse electrician upcoming on . INR at discharge was 3.2. She has an upcoming INR test on Tuesday of next week and I told her to follow-up with this appointment. Her son will be staying with her after discharge to assist with any issues that she may be having as well. Blood pressure at the time of discharge was 95/59 and patient was feeling well and asymptomatic with regards to having lower pressures. Her goal blood pressure is 130/80 or less. She was discharged home in stable condition with home health on 02/13/2023. I have asked her to follow-up with orthopedic surgery to follow-up post shoulder reduction for dislocation, neurology and she will call tomorrow to set up an appointment to be seen within the next month, her powerhouse electrician as previously scheduled and her primary care physician within the next 2 weeks. We did strongly recommend that she stop smoking. A prescription for the Coreg was sent to her local pharmacy and she can buy [id number] aspirin. 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 Complained of a little bit of nausea after eating however this resolved. Tolerated her medicines and blood pressures are much better. Anxious to go home. Const alert, oriented x3, no apparent distress, average body habitus, no limitations and well nourished; Negative for healthy appearing Constitutional Narrative: Older, white female, sitting up in chair at the bedside, appears older than stated age, nontoxic, very pleasant General Appearance: cooperative, comfortable, well kempt and well developed Orientation / Consciousness: awake, oriented to person, oriented to place and oriented to time Exam Limitations: no limitations HEENT normocephalic, head/scalp atraumatic, hearing grossly normal bilaterally and moist oral mucous membranes HEENT Narrative: Dentition is poor, Mallampati is 2-3, no thrush Eyes PERRL, EOMs intact bilaterally and conjunctivae normal Eyes Narrative: No scleral icterus Neck no lymphadenopathy and supple Neck Narrative: Trachea midline, no thyroid enlargement Resp normal respiratory effort, no retractions, no use of accessory muscles and clear to auscultation bilaterally Resp Narrative: Diffusely diminished but clear, few end expiratory wheezes that clear with cough Auscultation: wheezes; Negative for rales or rhonchi Cardio regular rate, S1 normal heart sound, no murmurs, no rub, no gallops and no clicks; Negative for regular rhythm or S2 normal heart sound Cardio Narrative: Irregularly irregular rhythm with loud S2 GI normal to inspection, nondistended, normoactive bowel sounds, soft to palpation, non-tender and non-distended Extremity no clubbing, cyanosis or edema Extremity Narrative: Pulses are 2+, pain with left shoulder movement Skin no rashes or lesions noted, no wounds, skin turgor normal and no jaundice Neuro oriented x3, CN's II-XII intact bilaterally, moves all extremities and no focal motor deficits Sensorium / Orientation: awake, alert, oriented to person, oriented to place and oriented to time Speech: speech normal Psych affect normal Psych Narrative: Pleasant, interacts appropriately Weight / BMI Weight Weight: 60 kg Body Mass Index (BMI) 24.2 ABG / Lab / Microbiology Data 02/11/23 19:50 02/13/23 06:22 Laboratory: Laboratory Results - last 24 hr 02/13/23 06:22: Sodium 139, Potassium 4.2, Chloride 108 H, Carbon Dioxide 27.0, Anion Gap 4 L, BUN 12, Creatinine 0.64, Estim Creat Clear Calc 39.04, Est GFR (MDRD) Af Amer 118, Est GFR (MDRD) Non-Af 97, BUN/Creatinine Ratio 18.9, Glucose 156 H, Calcium 8.8, Phosphorus 2.3 L, Magnesium 2.3, Total Bilirubin 0.30, AST 18, ALT 20, Alkaline Phosphatase 105, Total Protein 6.7, Albumin 3.3, Globulin 3.4, Albumin/Globulin Ratio 1.0 D/C Instructions Discharge Diet: Low fat / Low cholesterol Discharge Activity: Return to Normal Activity Meaningful Use Info Meaningful Use Diagnoses (Choose all that apply): Ischemic CVA CVA Therapy Assessed for PT,OT and/or ST?: Yes Ischemic Stroke Antithrombotic order at d/c?: Yes Dx of Atrial fib/flutter?: Yes Anticoagulant at discharge?: Yes Statins at discharge?: Yes Primary Dx Acute Ischemic CVA?: Yes IV thrombolytic ordered during stay?: No Reason IV thrombolytic not ordered: Treatment not Indicated Discharge Plan Admission Admit Date/Time: 02/11/23 22:32 Primary Reason for Your Visit: Headache/slurred speech/left shoulder pain after fall Attending Provider: Princess Tyler Primary Care Provider: Chelita Beltran NP Consulting Providers: Denver Lawson; Molly Ybarra; Gillian Casey; Shannan Ratliff; Lilia Hernandez; Rafiq Kong; Kayy Payton; Lisandro Barrett; Marlon Bejarano; Claudia Keller; Gigi Herbert; Nai Quinn; Manjinder Campoverde; Adelso Plata; Robert Duron; Afshin Dickson; Sathish Crespo; Rosa Tyler; Apurva Ramsey; Ángel Jordan Instructions Additional Instructions / Restrictions: 1. Please follow-up with your powerhouse electrician as already scheduled and discuss blood pressure with them -Also discussed with your powerhouse electrician that you were diagnosed with a stroke and that we were wondering if you could discontinue Coumadin and transition to Eliquis or Xarelto for more predictable anticoagulation especially since you had a stroke while on Coumadin. -If you stay on Coumadin I would highly recommend your goal INR be 2.5-3.5 2. Your INR at the time of discharge was 3.2. Please have your INR checked on Tuesday as scheduled per our discussion. 3. Please take your blood pressure once a day at home at various times and write them down and take them to your powerhouse electrician. Take them randomly throughout the day. I also would take your home blood pressure cuff into your doctors office to have it checked for accuracy Discharge Orders/Prescriptions Prescriptions: New aspirin 81 mg Tablet,Chewable 81 mg PO BREAKFAST Qty: 1 0RF carvedilol 25 mg Tablet 25 mg PO BID Qty: 60 0RF Continued amiodarone 200 mg tablet 200 mg PO BID amlodipine 10 mg tablet 10 mg PO DAILY atorvastatin 40 mg tablet 40 mg PO QHS carbamazepine 200 mg tablet 400 mg PO Q12H clonidine HCl 0.3 mg tablet 0.3 mg PO Q8H hydralazine 100 mg tablet 100 mg PO Q8H polymyxin B sulf-trimethoprim 10,000 unit- 1 mg/mL drops ophthalmic (eye) BID Patient Comments: NOT CURRETLY TAKING NEED REFILL valsartan 160 mg tablet 160 mg PO BID warfarin 3 mg tablet 4.5 mg PO DAILY Patient Comments: TAKE 2 TABLETS BY MOUTH EVERY DAY; 4.5 mg TUESDAY, TUESDAY, TUESDAY (CURRENTLY 02/11/23 Rx Instructions: 4.5 mg TUESDAY, TUESDAY, TUESDAY; 3 mg Tue, Tue, , multivitamin [Daily Multi-Vitamin] Tablet 1 tab PO DAILY calcium carbonate-vitamin D3 [Calcium 500 + D (D3)] .ROUTE Discontinued hydralazine 10 mg tablet labetalol 100 mg tablet 100 mg PO Q12H Referrals / Follow Up: Saul Wise DO [Med Staff - Active Staff] - Sukumar Richard DO [Med Staff - Active Staff] - Within 2 Weeks (L shoulder dislocation) Familia Hurst MD [Non-Staff -Ordering Privileges] - Within 1 Month (Call 02/24/2023 to set up an appointment to be seen as soon as you can get in the schedule) Devin,Chelita PRODUCT LINE MANAGER, PRODUCT LINE MANAGER-C [Primary Care Provider] - Within 1 Week Disposition Disposition (needs filled in before D/C Order can be placed): Home Health Service Charges/Coding Visit Charges Inpatient E&M: 90557 Disch Hosp >30min
[2023-02-13 14:37] VITALS: BMI 24.2
--- NOTE | 2023-02-14 11:25 | CASEMGMT ---
TC luther Loving at [facility], she received referral for pt with added therapies. She states nursing will see pt tomorrow and therapy this week.
== END 2023-02-13 15:14 | disposition home health service (06) ==
LOC: ED 21:41 → PCU 22:10
PROVIDERS: Admitting Provider Internal Medicine; Emergency Provider Emergency Medicine; PCP Registered Nurse; Visit Provider Internal Medicine
DX: I63.9 Cerebral infarction, unspecified (principal); I48.19 Other persistent atrial fibrillation; I65.23 Occlusion and stenosis of bilateral carotid arteries; F17.210 Nicotine dependence, cigarettes, uncomplicated; R53.1 Weakness; W19.XXXA Unspecified fall, initial encounter; I10 Essential (primary) hypertension; R29.810 Facial weakness; I25.10 Atherosclerotic heart disease of native coronary artery without angina pectoris; S43.005A Unspecified dislocation of left shoulder joint, initial encounter; Z79.01 Long term (current) use of 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; R47.81 Slurred speech; Z79.899 Other long term (current) drug therapy; Y92.009 Unspecified place in unspecified non-institutional (private) residence as the place of occurrence of the external cause; Z95.1 Presence of aortocoronary bypass graft; Z95.2 Presence of prosthetic heart valve; R29.705 NIHSS score 5
CPT/HCPCS: 36415; 70450; 70496; 70498; 70551; 71045; 73030; 80048; 80053; 80061; 81001; 83735; 84100; 84484; 85025; 85610; 85730; 92610; 93005; 93308; 96374; 96375; 97116; 97162; 97165; 97530; 97802; 99221; 99285; Q9967; A4216; G0378; J2405

== ENCOUNTER 2023-03-16 21:56 | Emergency (ER) | payer MEDICARE, SELFPAY ==
[2023-03-16 21:57] VITALS: BP 156/82; PULSE 62; RESP 15; TEMP 36.3; O2SAT 97; BMI 24.3
--- NOTE | 2023-03-17 00:31 | CT_ITS ---
STUDY: CT BRAIN WITHOUT CONTRAST REASON FOR EXAM: Female, 73 years old. head injury RADIATION DOSAGE (If Supplied By Facility): CTDIvol = ( 44.99 ) mGy, DLP = ( 1326.69 ) mGycm TECHNIQUE: Transaxial CT imaging of the brain was performed without administration of intravenous contrast material. Individualized dose optimization techniques were used for this CT. COMPARISON: 02/11/2023. FINDINGS: Normal soft tissue structures. Normal calvarium. There is moderate cerebral atrophy with widening of the extra-axial spaces and ventricular dilatation. There are areas of decreased attenuation within the white matter tracts of the supratentorial brain, consistent with microvascular disease changes. Small focus of CSF attenuation within the right caudate head measuring 7 mm consistent with old lacunar infarct. Otherwise normal basal ganglia and thalami. Normal brainstem. Normal cerebellum. There is no intracranial hemorrhage. There are no findings of an acute ischemic infarction. Normal visualized paranasal sinuses. CT/Brain/Head without Contrast IMPRESSION: Chronic changes as described with no acute intracranial hemorrhage or space-occupying lesion. Electronically Signed: Cher Bustillo MD at 1:00 EST ,
--- NOTE | 2023-03-17 00:32 | CT_ITS ---
STUDY: CT FACIAL BONES WITHOUT CONTRAST REASON FOR EXAM: Female, 73 years old. head injury RADIATION DOSAGE (If Supplied By Facility): CTDIvol = ( 29.38 ) mGy, DLP = ( 1326.69 ) mGycm TECHNIQUE: The patient was scanned in a multi detector CT scanner. Sagittal and coronal images were reconstructed. Individualized dose optimization techniques were used for this CT. COMPARISON: 01/15/2023. FINDINGS: Unremarkable soft tissue structures with no focal hematoma or soft tissue swelling seen. Normal orbital bae and orbital contents. Normal nasal bones and anterior nasal spine. Normal facial bones. There is no demonstrated fracture. Normal visualized paranasal sinuses. CT/Sinus/Facial Bone IMPRESSION: No distinct facial bone fracture seen. Electronically Signed: Cher Bustillo MD at 1:03 EST ,
--- NOTE | 2023-03-17 01:23 | EX.ED.DYSGE1 ---
HPI History of Present Illness Chief Complaint: Fall Informant: patient Narrative Narrative: Patient is a 73-year-old female with past medical history of atrial fibrillation on Coumadin as well as hypertension hyperlipidemia previous CVA and epilepsy. She states around 7/8 PM this evening she was walking with her rollator through her mobile home when the rollator caught on a piece of furniture and she lost her balance and fell striking her head/face. She denies any loss of consciousness. However as she sustained a head injury and is on a blood thinner she was concerned and therefore comes to the hospital for evaluation. [facility] Medical History Afib Anemia 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 COPD (chronic obstructive pulmonary disease) Deafness in left ear Depression Diabetes GERD (gastroesophageal reflux disease) HTN (hypertension) Irregular heart beat Myocardial infarct Rheumatoid arthritis Right renal artery stenosis Seizures Stroke/cerebrovascular accident Home Medications atorvastatin 40 mg tablet 40 mg PO DAILY 01/15/23 [History Last Taken Unknown] carbamazepine 200 mg tablet 200 mg PO .x4 01/15/23 [History Last Taken Unknown] clonidine HCl 0.3 mg tablet 0.3 mg PO TID 01/15/23 [History Last Taken 01/15/23] hydralazine 100 mg tablet 100 mg PO TID BLOOD PRESSURE 01/15/23 [History Last Taken 01/15/23] ofloxacin 0.3 % eye drops 1 drp ophthalmic (eye) DAILY 01/15/23 [History Last Taken Unknown] valsartan 160 mg tablet 160 mg PO BID 01/15/23 [History Last Taken Unknown] amiodarone 200 mg tablet 200 mg PO DAILY 02/11/23 [History Last Taken Unknown] calcium carbonate-vitamin D3 1 tab PO DAILY 02/11/23 [History Last Taken Unknown] multivitamin (Daily Multi-Vitamin tablet) 1 tab PO DAILY 02/11/23 [History Last Taken Unknown] polymyxin B sulfate 10,000 unit-trimethoprim 1 mg/mL eye drops 1 drp ophthalmic (eye) BID CATARACTS 02/11/23 [History Last Taken Unknown] warfarin 3 mg tablet 4.5 mg PO DAILY 02/11/23 [History Last Taken Unknown] aspirin 81 mg chewable tablet 81 mg PO BREAKFAST #1 TAB 02/13/23 [Rx Last Taken Unknown] carvedilol 25 mg tablet 25 mg PO BID #60 tabs 02/13/23 [Rx Last Taken Unknown] Allergy/AdvReac Type Severity Reaction Status Date / Time ibuprofen Allergy Rash Verified 03/16/23 22:02 naproxen [From Naprosyn] Allergy Rash Verified 03/16/23 22:02 codeine AdvReac Other Verified 03/16/23 22:02 Surgical History Aortic valve replaced Hx of CABG Social History (System 03/03/23 @ 13:45 by Genesis Shah) Smoking Status: Current every day smoker tobacco type: cigarettes ROS ROS ED Constitutional Constitutional ED: Denies chills or fever(s) Eyes Eyes: Denies change in vision ENT ENT ED: Reports other Details: Positive nasal pain/bleeding ; Denies sore throat Cardiovascular Cardiovascular: Denies chest pain, palpitations or racing heartbeat Respiratory/Chest Respiratory/Chest: Denies cough or dyspnea Gastrointestinal Gastrointestinal: Denies abdominal pain, diarrhea, nausea or vomiting Genitourinary Genitourinary ED: Denies dysuria Musculoskeletal Musculoskeletal: Denies back pain or neck pain Integumentary Reports Abrasions Neurologic Neurologic: Reports headache(s); Denies paresthesias or weakness Hematologic/Lymphatic Hematologic/Lymphatic: Reports easy bleeding and easy bruising EXAM Physical Exam Const Vital Signs: 03/16/23 21:57 03/16/23 23:41 Temperature 97.4 F L Temperature Source Temporal Pulse Rate 62 Respiratory Rate 15 Respiratory Effort Normal Respiratory Depth Normal Respiratory Pattern Normal Blood Pressure 156/82 H Blood Pressure Mean 106 Pulse Ox 97 Oxygen Delivery Method Room Air Room Air Positive well nourished and well developed General Appearance ED: well developed HEENT HEENT Narrative: Patient has soft tissue swelling and ecchymosis across the bridge of the nose there is a superficial abrasion over top the nose as well without active bleeding consistent with report of fall/head trauma. Otherwise no signs of depressed or basilar skull fracture No septal hematoma noted Eyes PERRL and EOMs intact bilaterally Eyes Narrative: No hyphema noted Neck supple Neck Narrative: No bony deformity or step-off of the cervical spine no midline pain with palpation Patient can move her neck in all directions without pain Chest Wall palpation of chest normal Chest Narrative: No bony deformity or crepitance Resp normal respiratory effort and clear to auscultation bilaterally Cardio regular rate and regular rhythm GI normal to inspection, nondistended, normoactive bowel sounds, non-tender, non-distended and no masses Auscultation: normoactive bowel sounds Palpation: soft Back/Spine Back/Spine Narrative: No bony deformity or step-off of the thoracic or lumbar spine no midline pain on palpation Extremity normal to inspection Extremity Narrative: Pelvis is stable there is no shortening or external rotation of either lower extremity Patient can lift both arms and legs without difficulty Neuro oriented x3, CN's II-XII intact bilaterally and no sensory deficits noted Sensorium / Orientation: alert Motor Exam: strength 5/5 throughout Psych mental status grossly normal Skin Skin Narrative: Ecchymosis with soft tissue swelling to the bridge of the nose as documented above with superficial abrasion but no signs of secondary infection and no active bleeding present MDM MDM MDM Narrative Medical decision making narrative: Patient presented to the ER with stable vitals and a normal neurologic exam. She reported a mechanical fall and therefore there is no need for cardiac or syncope workup. As she did strike her head/face however and is on a blood thinner there is concern for skull fracture versus subdural or epidural hematoma versus nasal bone fracture. Secondary to this CTs were obtained which revealed no acute findings. By exam there is no Septal hematoma either. Therefore at this time she does not have any signs of long bone injury and underlying traumatic brain bleed or facial injury has been ruled out by imaging she is otherwise safe for discharge History & Record Review Discussion w/independent historian: Patient Radiography Diagnostic Testing: Clinical Impression(s) from Imaging Studies Brain CT 03/17/23 00:31 IMPRESSION: Chronic changes as described with no acute intracranial hemorrhage or space-occupying lesion. Electronically Signed: Cher Bustillo MD at 1:00 EST Reading Location ID and State: [id number] / [employer] , Service support , Facial/Sinus 03/17/23 00:32 IMPRESSION: No distinct facial bone fracture seen. Electronically Signed: Cher Bustillo MD at 1:03 EST , Discharge Plan Triage Chief Complaint: Fall ED Provider: Bridger Haynes Dx/Rx/DC Orders Clinical Impression: Current use of ocean transportation intermediary anticoagulation, Closed head injury, Nasal contusion, Epilepsy, History of atrial fibrillation, Hypertension Instructions: ED Head Injury (Adult), ED Nasal Contusion Prescriptions: No Action atorvastatin 40 mg tablet 40 mg PO DAILY carbamazepine 200 mg tablet 200 mg PO .x4 clonidine HCl 0.3 mg tablet 0.3 mg PO TID Patient Comments: TOOK 2X TODAY hydralazine 100 mg tablet 100 mg PO TID Patient Comments: HAS TAKEN 2 DOSES TODAY ofloxacin 0.3 % drops 1 drp ophthalmic (eye) DAILY Patient Comments: TO LEFT EYE valsartan 160 mg tablet 160 mg PO BID amiodarone 200 mg tablet 200 mg PO DAILY polymyxin B sulf-trimethoprim 10,000 unit- 1 mg/mL drops 1 drp ophthalmic (eye) BID Patient Comments: NOT CURRETLY TAKING NEED REFILL warfarin 3 mg tablet 4.5 mg PO DAILY Patient Comments: TAKE 2 TABLETS BY MOUTH EVERY DAY; 4.5 mg TUESDAY, TUESDAY, TUESDAY (CURRENTLY 02/11/23 Rx Instructions: 4.5 mg TUESDAY, TUESDAY, TUESDAY; 3 mg Tue, Tue, , multivitamin [Daily Multi-Vitamin] Tablet 1 tab PO DAILY calcium carbonate-vitamin D3 [Calcium 500 + D (D3)] 1 tab PO DAILY aspirin 81 mg Tablet,Chewable 81 mg PO BREAKFAST Qty: 1 0RF carvedilol 25 mg Tablet 25 mg PO BID Qty: 60 0RF Primary Care Provider: Chelita Beltran NP Referrals: Chelita Beltran NP, STEVEDORING SUPERVISOR-C [Primary Care Provider] - Activity Restrictions/Additional Instructions: Your CT scans did not show a skull fracture or brain bleed nor did they show any type of facial fracture or broken nose. Wash your nasal wound with soap and water and place Neosporin on it once a day to help with healing and return to the ER should you have any further concerns. Disposition Disposition: Home, Self Care Discharge Date/Time: 03/17/23 01:31
[2023-03-17] MEDS: Acetaminophen 500 MG Tablet 1000 MG PO (01:29)
--- NOTE | 2023-03-22 11:34 | CM.ED ---
Social Work Received call from patient's son Monty, who was inquiring about resources for patient. Monty referenced this ED encounter for patient, and all other hospital visits this year. Note, this publications writer familiar with patient and son from prior encounters at [facility] in the last year. Did not provide Monty any confidential health protected information, but did listen and offered support and general resources related to expressed concerns. Monty reports patient has been falling recently again, and concern whether patient is taking medications properly, as well as patinet reportedly being hospitalized recently for mini strokes. Monty expressed thought patient may need to go to an assisted living, or needs more care and support in general. Monty reports patient had [facility] skilled HHC, and was doing well when HHC was coming out, but HHC has since closed case. Monty reports has started to see patient going downhill again, without oversight and superision of others. Educated Monty, that if patient is agreeable to accept more care, there are different levels of care. Monty reports has a call into patient's PCP about what has been happening at home. Encouraged Monty to speak with the PCP, and reinforced to Monty that if ever concerned about medical safety of patient can bring patient to the ED for evaluation though not a guarantee of admission. Reviewed verbally with Monty some possible options for patient, and obtained email for Monty ([email or web address]). Emailed Monty for further review and consideration, to review with the patient: Assisted living list Adult Day Care programming [facility] for a free fpc care consultation. Left this writers name/number in the email, should patient or Monty have question about resources provided. -BRETT Zavaleta.
== END 2023-03-17 01:31 | disposition home or self-care (01) ==
PROVIDERS: Emergency Provider Emergency Medicine; PCP Registered Nurse; Visit Provider Emergency Medicine
DX: S09.90XA Unspecified injury of head, initial encounter (principal); J44.9 Chronic obstructive pulmonary disease, unspecified; I48.91 Unspecified atrial fibrillation; G40.909 Epilepsy, unspecified, not intractable, without status epilepticus; E11.9 Type 2 diabetes mellitus without complications; Z79.01 Long term (current) use of 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; S00.33XA Contusion of nose, initial encounter; F17.210 Nicotine dependence, cigarettes, uncomplicated; I10 Essential (primary) hypertension; E78.5 Hyperlipidemia, unspecified; W01.10XA Fall on same level from slipping, tripping and stumbling with subsequent striking against unspecified object, initial encounter; Y93.01 Activity, walking, marching and hiking; Y92.029 Unspecified place in mobile home as the place of occurrence of the external cause; Z79.899 Other long term (current) drug therapy; Z79.82 Long term (current) use of aspirin; Z95.1 Presence of aortocoronary bypass graft
CPT/HCPCS: 70450; 70486; 99282

== ENCOUNTER 2023-12-06 09:01 | Emergency (ER) | payer MEDICARE, SELFPAY ==
[2023-12-06] VITALS (7 sets, daily range): BP systolic 134–182; BP diastolic 76–85; PULSE 38–77; RESP 14–18; TEMP 36.6–36.9; O2SAT 93–99; BMI 25.2
--- NOTE | 2023-12-06 09:39 | EKG12_ITS ---
Test Reason : Blood Pressure : */* mmHG Vent. Rate : 36 BPM Atrial Rate : 36 BPM P-R Int : 270 ms QRS Dur : 108 ms QT Int : 528 ms P-R-T Axes : 41 44 86 degrees QTcB Int : 408 ms Critical Test Result: Low HR Marked sinus bradycardia with sinus arrhythmia with 1st degree A-V block Minimal voltage criteria for LVH, may be normal variant ( Ruben product ) Anteroseptal infarct , age undetermined Abnormal ECG Confirmed by ARCELIA SAVAGE, NICOLETTE ([id number]), supervising editor trailer ROSANNE SAMAYOA ([id number]) on 12/07/2023 6:01:11 AM Referred By: Confirmed By: NICOLETTE PANIAGUA MD
--- NOTE | 2023-12-06 09:41 | EDS_ITS ---
HPI History of Present Illness Chief Complaint: Weakness Informant: patient and family (Lives with sister.) Onset/Context/Timing Onset: Days Context: Gradual Onset Timing: Continuous Current Severity: Mild Maximum Severity: Mild Narrative Narrative: 73-year-old female past medical history of COPD not on home O2, prior ME, A-fib, on the blood thinner Coumadin. Diabetes and anemia. She just felt tired and weak the last several days. Nonproductive cough. No fever. No vomiting or diarrhea. Mild nausea. Denies any dysuria or abdominal pain. Prior similar symptoms: Yes Recent Illness/Hospitalization: No [facility] Medical History Hyperlipidemia Epilepsy HTN (hypertension) Tobacco abuse COPD (chronic obstructive pulmonary disease) Acute stroke due to ischemia senior living (current) use of 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 Myocardial infarction Atrial fibrillation Rheumatic fever Mitral prolapse Stroke Right renal artery stenosis 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 Anemia Depression Rheumatoid arthritis GERD (gastroesophageal reflux disease) COPD (chronic obstructive pulmonary disease) Irregular heart beat Deafness in left ear Myocardial infarct Seizures Stroke/cerebrovascular accident Hypertension Contusion of face Multiple falls Chronic anticoagulation Unsteady gait 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, chronic Abrasion of left ring finger Diabetes HTN (hypertension) Afib Home Medications ?Medication ?Instructions ?Recorded ?Last Taken ?Type atorvastatin 40 mg tablet 40 mg PO DAILY 01/15/23 Unknown History carbamazepine 200 mg tablet 200 mg PO .x4 01/15/23 Unknown History clonidine HCl 0.3 mg tablet 0.3 mg PO TID 01/15/23 01/15/23 History hydralazine 100 mg tablet 100 mg PO TID BLOOD PRESSURE 01/15/23 01/15/23 History ofloxacin 0.3 % eye drops 1 drp ophthalmic (eye) DAILY 01/15/23 Unknown History valsartan 160 mg tablet 160 mg PO BID 01/15/23 Unknown History amiodarone 200 mg tablet 200 mg PO DAILY 02/11/23 Unknown History calcium carbonate-vitamin D3 1 tab PO DAILY 02/11/23 Unknown History multivitamin (Daily Multi-Vitamin 1 tab PO DAILY 02/11/23 Unknown History tablet) polymyxin B sulfate 10,000 1 drp ophthalmic (eye) BID 02/11/23 Unknown History unit-trimethoprim 1 mg/mL eye drops CATARACTS warfarin 3 mg tablet 4.5 mg PO DAILY 02/11/23 Unknown History aspirin 81 mg chewable tablet 81 mg PO BREAKFAST #1 TAB 02/13/23 Unknown Rx carvedilol 25 mg tablet 25 mg PO BID #60 tabs 02/13/23 Unknown Rx Allergy/AdvReac Type Severity Reaction Status Date / Time ibuprofen Allergy Rash Verified 12/06/23 09:02 naproxen (From Naprosyn) Allergy Rash Verified 12/06/23 09:02 codeine AdvReac Other Verified 12/06/23 09:02 Surgical History Aortic valve replaced Hx of CABG S/P left knee arthroscopy Hx of CABG Aortic valve replaced Social History Smoking Status: Current every day smoker tobacco type: cigarettes ROS ROS ED ROS Narrative Generalized weakness. Nonproductive cough. Mild nausea. Constitutional Constitutional ED: Denies chills or fever(s) Eyes Eyes: Denies blurry vision ENT ENT ED: Denies ear pain Cardiovascular Cardiovascular: Denies chest pain Respiratory/Chest Respiratory/Chest: Reports cough; Denies dyspnea Gastrointestinal Gastrointestinal: Reports nausea; Denies abdominal pain, diarrhea, melena or vomiting Genitourinary Genitourinary ED: Denies dysuria or hematuria Musculoskeletal Musculoskeletal: Denies arthralgias Integumentary Denies abscess Neurologic Neurologic: Denies headache(s) Psychiatric Psychiatric: Denies anxiety or depression Endocrine Endocrinology: Denies cold intolerance Hematologic/Lymphatic Hematologic/Lymphatic: Reports anemia Allergic/Immunologic Allergic/Immunologic ED: Denies mouth swelling, tongue swelling or urticaria EXAM Physical Exam Narrative Exam Narrative: 73-year-old female vital signs are stable afebrile. Pulse ox 93% on room air no hypoxia. H EENT exam unremarkable. Neck nontender. Lungs mild expiratory wheezes bilaterally. No rales or rhonchi. Heart bradycardic rate about 40 no murmur. Patient has a history of bradycardia. She states this is her baseline. Chest wall nontender. Abdomen soft nontender. Moving all 4 extremities. Nontender no edema. No cords. Normal strength. Normal range of motion. No deformity. Back nontender. Neurologically she is awake and alert. She knows the month and year. She knows where she is at. She is answering questions fol lowing commands. Const Vital Signs: 12/06/23 09:02 12/06/23 09:02 12/06/23 09:21 Temperature 98.4 F 98.4 F Temperature Source Oral Temporal Pulse Rate 38 L 38 L Respiratory Rate 16 16 Respiratory Effort Normal Respiratory Pattern Normal Blood Pressure 144/78 H 150/78 H Blood Pressure Mean 100 102 Pulse Ox 93 98 Oxygen Delivery Method Room Air Room Air 12/06/23 10:21 12/06/23 11:00 12/06/23 12:06 Temperature 97.8 F Temperature Source Temporal Pulse Rate 42 L 42 L 42 L Respiratory Rate 14 14 16 Respiratory Effort Respiratory Pattern Blood Pressure 166/80 H 148/76 H 177/85 H Blood Pressure Mean 108 100 115 Pulse Ox 98 98 98 Oxygen Delivery Method Room Air Room Air Room Air 12/06/23 13:00 Temperature Temperature Source Pulse Rate 46 L Respiratory Rate 18 Respiratory Effort Respiratory Pattern Blood Pressure 182/79 H Blood Pressure Mean 113 Pulse Ox 95 Oxygen Delivery Method Room Air Positive well nourished and well developed; Negative for obese, cachectic, con tractures or unkempt General Appearance ED: well developed and NAD; Negative for unkempt, cachectic, contractures, cyanotic, diaphoretic or pallor Nutritional Appearance: Negative for cachectic or obese HEENT Reports moist mucous membranes Negative for trauma or tenderness Eyes PERRL and EOMs intact bilaterally General Eye ED: Negative for pale conjunctiva or scleral icterus Neck no lymphadenopathy, supple and no JVD General: Negative for tenderness Lymph Lymphatic: Negative for other Chest Wall inspection of chest normal and palpation of chest normal Chest: Negative for other Resp normal respiratory effort and clear to auscultation bilaterally Effort and Inspection: Negative for retractions Auscultation: Negative for rales, rhonchi, wheezes or diminished lung sounds Cardio regular rhythm, S1 normal heart sound and S2 normal heart sound Rate: bradycardia; Negative for tachycardic Rhythm: Negative for abnormal rhythm GI normal to inspection, nondistended, normoactive bowel sounds, non-tender, non- distended and no masses Auscultation: normoactive bowel sounds Palpation: soft; Negative for tender or guarding Back/Spine no CVA tenderness General Back: Negative for CVA tenderness Cervical Spine: Negative for cervical spine tenderness Thoracic Spine / Upper Back: Negative for thoracic spinal tenderness Lumbar Spine / Lower Back: Negative for lumbar spinal tenderness Extremity normal to inspection General Extremety ED: Negative for edema or tenderness General Extremity: Negative for edema Neuro oriented x3 and CN's II-XII intact bilaterally Sensorium / Orientation: alert; Negative for orientation impaired, lethargic or stuporous Psych mental status grossly normal Appearance: Negative for unkempt Attitude: No agitated Mood & Affect: Negative for depressed, anxious or tearful Skin no rashes or lesions noted, no wounds and skin turgor normal General Skin Exam: elasticity normal; Negative for jaundice or pallor Lesions: No lesion noted Rashes: No rashes noted Trauma: Negative for abrasion Wounds: Negative for wounds noted MDM MDM MDM Narrative Medical decision making narrative: 73-year-old female generalized weakness with URI symptoms. Rule out pneumonia versus COVID versus other. Labs are pending and chest x-ray. I do not think she needs any CAT scans. Repeat exam patient is doing well at 1:25 PM. She is resting comfortably in bed. Her vital signs are stable. She is afebrile. She is in no distress. This is her baseline bradycardia her pressures have been very stable and actually high with that. I do not have a specific cause for her symptoms. There is no signs of infection. Her repeat exam is unchanged. She is comfortable being discharged home with outpatient follow-up with her nurse practitioner. I went over all the patient's test results with her. History & Record Review Discussion w/independent historian: Patient and Family Additional record(s) reviewed:: Prior inpatient record, Prior outpatient record, Prior ED visit and Prior labs Lab Data Attestation: I reviewed the patient's lab results. Lab results narrative: CBC normal. White count of 5. H&H 14 and 43. Platelets 223. PT/INR of 18 and 1.6. Electrolytes show sodium 132. Potassium 3.2. Gap 7. Normal BUN of 9 creatinine 0.6. Glucose 142. Urinalysis normal no infection. No nitrites nor bacteria nor white cells. Labs: Laboratory Results - last 24 hr 12/06/23 12/06/23 08:48 11:26 WBC 5.9 RBC 4.45 Hgb 14.1 Hct 40.4 MCV 90.8 MCH 31.7 MCHC 34.9 RDW Std Deviation 41.8 RDW Coeff of [place] 12.6 Plt Count 223 MPV 10.0 Immature Gran % (Auto) 0.500 Neut % (Auto) 59.2 Lymph % (Auto) 29.0 [place] % (Auto) 9.7 Eos % (Auto) 0.2 Baso % (Auto) 1.4 H Absolute Neuts (auto) 3.5 Absolute Lymphs (auto) 1.71 Nucleated RBC % 0 PT 18.7 H INR 1.6 Sodium 132 L Potassium 3.2 L Chloride 95 L Carbon Dioxide 30.0 Anion Gap 7 BUN 9 Creatinine 0.64 Estim Creat Clear Calc 53.67 Est GFR (MDRD) Af Amer 117 Est GFR (MDRD) Non-Af 97 BUN/Creatinine Ratio 14.2 Glucose 142 H Calcium 8.5 Urine Color Yellow Urine Clarity Clear Urine pH 7.0 Ur Specific [place] 1.010 Urine Protein Negative Urine Glucose (UA) Normal Urine Ketones Negative Urine Occult Blood Negative Urine Nitrite Negative Urine Bilirubin Negative Urine Urobilinogen Normal Ur Leukocyte Esterase Negative Urine RBC 0 SEEN Urine WBC 0 SEEN Ur Squamous Epith Cells 0-5 SEEN Urine Bacteria 0 SEEN Urine Mucus 0 SEEN Radiography Chest X-Ray - ED: 2 View, Read by ED Physician, Normal, Heart, Lungs, Mediastinum, Bony Structures, No Acute Disease and Chronic Changes Diagnostic Testing: Clinical Impression(s) from Imaging Studies Chest X-Ray 12/06/23 10:18 IMPRESSION: No acute cardiopulmonary process identified. Electronically Signed: Liyah Merritt MD at 10:59 EDT Reading Location ID and State: [facility] / [place] Tel , Service support , Your valve surgery.Chest x-ray, 2 views, AP lateral interpreted both by myself and radiologist shows no acute process. Rhythm Strip Rhythm Strip: Sinus bradycardia Rate: 36 Ectopy: None EKG Initial EKG: Attestation: I personally reviewed and interpreted this EKG as follows: Interpretation: No Acute Injury Pattern and Sinus Bradycardia Comments: Sinus bradycardia rate of 36 no acute signs of ME or ischemia. Discharge Plan Triage Chief Complaint: Weakness ED Provider: Herman Boogie Dx/Rx/DC Orders Clinical Impression: Generalized weakness, History of diabetes mellitus, History of COPD, Acute hyponatremia Instructions: ED Weakness (Uncertain Cause) Prescriptions: No Action atorvastatin 40 mg tablet 40 mg PO DAILY carbamazepine 200 mg tablet 200 mg PO .x4 clonidine HCl 0.3 mg tablet 0.3 mg PO TID Patient Comments: TOOK 2X TODAY hydralazine 100 mg tablet 100 mg PO TID Patient Comments: HAS TAKEN 2 DOSES TODAY ofloxacin 0.3 % drops 1 drp ophthalmic (eye) DAILY Patient Comments: TO LEFT EYE valsartan 160 mg tablet 160 mg PO BID amiodarone 200 mg tablet 200 mg PO DAILY polymyxin B sulf-trimethoprim 10,000 unit- 1 mg/mL drops 1 drp ophthalmic (eye) BID Patient Comments: NOT CURRETLY TAKING NEED REFILL warfarin 3 mg tablet 4.5 mg PO DAILY Patient Comments: TAKE 2 TABLETS BY MOUTH EVERY DAY; 4.5 mg TUESDAY, TUESDAY, TUESDAY (CURRENTLY 02/11/23 Rx Instructions: 4.5 mg TUESDAY, TUESDAY, TUESDAY; 3 mg Tue, Tue, , multivitamin [Daily Multi-Vitamin] Tablet 1 tab PO DAILY calcium carbonate-vitamin D3 [Calcium 500 + D (D3)] 1 tab PO DAILY aspirin 81 mg Tablet,Chewable 81 mg PO BREAKFAST Qty: 1 0RF carvedilol 25 mg Tablet 25 mg PO BID Qty: 60 0RF Primary Care Provider: Care Physician,No Primary Referrals: Chelita Beltran NP, HEMSTITCHING MACHINE OPERATOR-C [Non-Staff] - As soon as possible Activity Restrictions/Additional Instructions: Your tests look good. There is no signs of infection. Follow-up with your primary care provider. Your sodium was only a little low at 132 as was your potassium at 3.2. Make levy re you are eating plenty of fruits and vegetables and that should come up. A daily multivitamin. Print Language: Pashto Disposition Disposition: Home, Self Care
[2023-12-06 09:55] LABS: Absolute Lymphocyte Count 1.71 X10^3/uL (0.83-4.51); Absolute Neutrophil Count 3.5 X10^3/uL (2.0-7.7); Basophil# 0.08 X10^3/uL; Basophil% 1.4 % (0-1); Eosinophil# 0.01 X10^3/uL; Eosinophils% 0.2 % (0-5); Hematocrit 40.4 % (37-47); Hemoglobin 14.1 g/dL (12.0-15.0); Lymphocyte # 1.71 X10^3/ul (0.83-4.51); Mean Corp Hgb Conc 34.9 g/dL (32-36); Mean Corpuscular Hgb 31.7 pg (27.0-32.0); Mean Corpuscular Volume 90.8 fL (81-99); Monocyte# 0.57 X10^3/uL; Monocyte% 9.7 % (0-10); NRBC Flagged by Analyzer 0 % (0-5); Neutrophil % 59.2 % (47-70); Platelet Count 223 K/mm3 (150-450); RBC Distribution Width CV 12.6 % (11.6-14.6); RBC Distribution Width SD 41.8 fl (35.1-43.9); Red Blood Count 4.45 M/mm3 (4.2-5.4); White Blood Count 5.9 K/mm3 (4.4-11.0)
[2023-12-06 10:04] LABS: International Normalized Ratio 1.6; Prothrombin Time (Protime)PT. 18.7 SECONDS (11.7-14.9)
[2023-12-06 10:08] LABS: Anion Gap 7 (5-15); BUN 9 mg/dL (7-18); BUN/Creat Ratio 14.2 RATIO (10-20); Calcium,Total 8.5 mg/dL (8.5-10.1); Chloride 95 mmol/L (98-107); Creatinine, Serum 0.64 mg/dL (0.55-1.02); EST Glomerular Filtration Rate 97 mL/min (>60); Est Glom Filt Rate - Afr Amer 117 mL/min (>60); Estimated Creatinine Clearance 53.67 ml/min; Glucose 142 mg/dL (74-106); Potassium 3.2 mmol/L (3.5-5.1); Sodium Level 132 mmol/L (136-145)
[2023-12-06] MEDS: 0.9% Normal Saline (500mL Bag) 500 ML 1000 ML IV (10:09)
--- NOTE | 2023-12-06 10:18 | RAD_ITS ---
HISTORY: cough. TECHNIQUE: XR Chest 2 Views. COMPARISON: 02/11/2023. FINDINGS: CARDIOMEDIASTINAL BORDERS: Cardiac silhouette within normal limits in size with valve prosthesis again seen. Mediastinal contour also unchanged with midline sternotomy and postoperative change. LUNGS: Radiographically clear. PLEURA: No pleural effusion or pneumothorax seen. OSSEOUS STRUCTURES: Mild degenerative change. RAD/Chest PA and Lateral IMPRESSION: No acute cardiopulmonary process identified. Electronically Signed: Liyah Merritt MD at 10:59 EDT ,
[2023-12-06 11:32] LABS: Bacteria 0 SEEN /hpf (None Seen); Color, Urine Yellow (Yellow); Glucose, Dipstick Normal (Normal); Ketone-Dipstick Negative (Negative); Leukocyte Esterase-Dipstick Negative /ul (Negative); Mucous, Urine 0 SEEN /hpf (<or=2+); Nitrite-Dipstick Negative (Negative); Occult Blood-Urine Negative /ul (Negative); Protein-Dipstick Negative (Negative); Red Blood Cells-Urine 0 SEEN /hpf (0-5); Urine Bilirubin Dipstick Negative (Negative); Urine Clarity Clear (Clear); Urine Urobilinogen Normal (Normal); White Blood Cells 0 SEEN /hpf (0-5)
[2023-12-06 11:57] LABS: Squamous Epithelial Cells - UA 0-5 SEEN /hpf (5-10)
== END 2023-12-06 13:49 | disposition home or self-care (01) ==
PROVIDERS: Emergency Provider Emergency Medicine; Visit Provider Emergency Medicine
DX: R53.1 Weakness (principal); J44.9 Chronic obstructive pulmonary disease, unspecified; I48.91 Unspecified atrial fibrillation; E11.9 Type 2 diabetes mellitus without complications; E78.5 Hyperlipidemia, unspecified; I10 Essential (primary) hypertension; I25.2 Old myocardial infarction; Z79.01 Long term (current) use of 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; Z86.73 Personal history of transient ischemic attack (TIA), and cerebral infarction without residual deficits; Z79.899 Other long term (current) drug therapy; Z79.82 Long term (current) use of aspirin; Z95.1 Presence of aortocoronary bypass graft; F17.210 Nicotine dependence, cigarettes, uncomplicated; Z95.2 Presence of prosthetic heart valve; E87.1 Hypo-osmolality and hyponatremia; R06.2 Wheezing
CPT/HCPCS: 71046; 80048; 81001; 85025; 85610; 87631; 93005; 96360; 96361; 99285; J7040

== ENCOUNTER → 2023-12-23 | Outpatient (CLI) | payer MEDICARE, SELFPAY ==
[2023-12-23 12:26] LABS: International Normalized Ratio 2.5; Prothrombin Time (Protime)PT. 26.9 SECONDS (11.7-14.9)
[2023-12-23 12:33] LABS: Absolute Lymphocyte Count 1.62 X10^3/uL (0.83-4.51); Absolute Neutrophil Count 4.7 X10^3/uL (2.0-7.7); Basophil# 0.08 X10^3/uL; Basophil% 1.1 % (0-1); Hematocrit 42.6 % (37-47); Hemoglobin 14.2 g/dL (12.0-15.0); Lymphocyte # 1.62 X10^3/ul (0.83-4.51); Lymphocyte % 23.2 % (19-41); Mean Corp Hgb Conc 33.3 g/dL (32-36); Mean Corpuscular Hgb 30.9 pg (27.0-32.0); Mean Corpuscular Volume 92.6 fL (81-99); Mean Platelet Vol. 10.1 fl (6.2-12.0); Monocyte# 0.58 X10^3/uL; Monocyte% 8.3 % (0-10); NRBC Flagged by Analyzer 0 % (0-5); Neutrophil # 4.67 X10^3/uL (2.7-7.7); Neutrophil % 66.8 % (47-70); Platelet Count 245 K/mm3 (150-450); RBC Distribution Width CV 12.5 % (11.6-14.6); RBC Distribution Width SD 42.3 fl (35.1-43.9)
[2023-12-23 12:41] LABS: ALB/GLOB Ratio 1.1 RATIO (0.9-2.4); AST(SGOT) 20 U/L (15-37); Alanine Aminotransfer ALT/SGPT 22 U/L (13-56); Albumin, Serum 3.5 g/dL (3.2-5.0); Alkaline Phosphatase 88 U/L (45-117); Anion Gap 6 (5-15); BUN 10 mg/dL (7-18); BUN/Creat Ratio 17.2 RATIO (10-20); Calcium,Total 8.8 mg/dL (8.5-10.1); Chloride 97 mmol/L (98-107); Cholesterol 121 mg/dL (200); Creatinine, Serum 0.58 mg/dL (0.55-1.02); EST Glomerular Filtration Rate 107 mL/min (>60); Est Glom Filt Rate - Afr Amer 130 mL/min (>60); Globulin 3.1 g/dL (2.2-4.2); Glucose 132 mg/dL (74-106); High Density Lipoprotein 62 mg/dL; Potassium 3.6 mmol/L (3.5-5.1); Protein, Total 6.6 g/dL (6.4-8.2); Sodium Level 132 mmol/L (136-145); Triglycerides 101 mg/dL; Very Low Density Lipoprotein 20 mg/dL (5-40)
== END | disposition home or self-care (01) ==
LOC: MFPLAB 10:34
PROVIDERS: PCP Family Medicine; Visit Provider Family Medicine
DX: I48.91 Unspecified atrial fibrillation (principal); E11.9 Type 2 diabetes mellitus without complications; E87.6 Hypokalemia
CPT/HCPCS: 36415; 80053; 80061; 83036; 85025; 85610

== ENCOUNTER 2023-12-30 21:29 | Emergency (ER) | payer MEDICARE, SELFPAY ==
[2023-12-30 21:31] VITALS: BP 175/94; PULSE 51; RESP 19; TEMP 36.8; O2SAT 97; BMI 24.2
--- NOTE | 2023-12-30 22:08 | CT_ITS ---
STUDY: CT BRAIN WITHOUT CONTRAST REASON FOR EXAM: Female, 73 years old. Frequent falls, headache RADIATION DOSAGE (If Supplied By Facility): CTDIvol = ( 44.99 ) mGy, DLP = ( 779.23 ) mGycm TECHNIQUE: Transaxial CT imaging of the brain was performed without administration of intravenous contrast material. Individualized dose optimization techniques were used for this CT. COMPARISON: March 17, 2023 FINDINGS: Normal soft tissue structures. Normal calvarium. Ossific plaquing of the cavernous carotids and vertebral arteries. There is also vertebrobasilar dolichoectasia consistent with systemic hypertension Moderate atrophy and advanced periventricular white matter ischemic changes. Old lacunar infarct in the head of the right caudate nucleus. Old left parietal lobe infarct Normal brainstem. Chronic ischemic changes within the cerebellar hemispheres bilaterally There is no intracranial hemorrhage. There are no findings of an acute ischemic infarction. Normal visualized paranasal sinuses. CT/Brain/Head without Contrast IMPRESSION: Moderate atrophy and advanced periventricular white matter ischemic changes with multiple old infarcts. No evidence for acute intracranial hemorrhage Electronically Signed: Jose Manuel Coto MD at 22:56 EST ,
--- NOTE | 2023-12-30 22:08 | EKG12_ITS ---
Test Reason : DYSRHYTHMIA Blood Pressure : */* mmHG Vent. Rate : 49 BPM Atrial Rate : 49 BPM P-R Int : 244 ms QRS Dur : 94 ms QT Int : 484 ms P-R-T Axes : 75 49 91 degrees QTcB Int : 437 ms Sinus bradycardia with sinus arrhythmia with 1st degree A-V block Minimal voltage criteria for LVH, may be normal variant ( Ruben product ) Cannot rule out Anterior infarct , age undetermined Abnormal ECG Confirmed by Saul Jernigan ([id number]), editorial intern ROSANNE SAMAYOA ([id number]) on 01/02/2024 6:23:48 AM Referred By: Ava Good Confirmed By: Saul Jernigan
[2023-12-30 22:23] LABS: Mucous, Urine 0 SEEN /hpf (<or=2+); Squamous Epithelial Cells - UA 0 SEEN /hpf (5-10); White Blood Cells 0 SEEN /hpf (0-5)
[2023-12-30 22:26] LABS: Absolute Neutrophil Count 2.7 X10^3/uL (2.0-7.7); Basophil# 0.08 X10^3/uL; Basophil% 1.5 % (0-1); Eosinophil# 0.02 X10^3/uL; Eosinophils% 0.4 % (0-5); Hematocrit 40.5 % (37-47); Lymphocyte % 37.5 % (19-41); Mean Corp Hgb Conc 34.6 g/dL (32-36); Mean Corpuscular Hgb 31.7 pg (27.0-32.0); Mean Corpuscular Volume 91.6 fL (81-99); Mean Platelet Vol. 10.4 fl (6.2-12.0); Monocyte# 0.47 X10^3/uL; Monocyte% 8.8 % (0-10); NRBC Flagged by Analyzer 0 % (0-5); Neutrophil # 2.74 X10^3/uL (2.7-7.7); Neutrophil % 51.2 % (47-70); Platelet Count 230 K/mm3 (150-450); RBC Distribution Width CV 12.3 % (11.6-14.6); RBC Distribution Width SD 41.2 fl (35.1-43.9); Red Blood Count 4.42 M/mm3 (4.2-5.4); White Blood Count 5.3 K/mm3 (4.4-11.0)
--- NOTE | 2023-12-30 22:30 | RAD_ITS ---
EXAM: XR CHEST, 2 VIEWS CLINICAL INDICATION: Cough TECHNIQUE: Frontal and lateral views of the chest. COMPARISON: 12/06/2023 FINDINGS: LUNGS AND PLEURAL SPACES: Unremarkable. No consolidation or edema. No pneumothorax. No effusion. HEART: Unremarkable. Cardiac silhouette not enlarged. MEDIASTINUM: Central airways and mediastinal contour are unremarkable. BONES/JOINTS: Unremarkable. No acute fracture. SOFT TISSUES: Unremarkable. RAD/Chest PA and Lateral IMPRESSION: No radiographic evidence of acute cardiopulmonary disease. Electronically Signed: Rakesh Mercedes MD at 23:24 EST ,
[2023-12-30 22:35] LABS: International Normalized Ratio 1.4; Prothrombin Time (Protime)PT. 16.7 SECONDS (11.7-14.9)
[2023-12-30 22:37] LABS: Color, Urine Yellow (Yellow); Glucose, Dipstick Normal (Normal); Ketone-Dipstick Negative (Negative); Leukocyte Esterase-Dipstick Negative /ul (Negative); Nitrite-Dipstick Negative (Negative); Occult Blood-Urine 10 /ul (Negative); Protein-Dipstick Negative (Negative); Specific Gravity, Urine 1.015 (1.002-1.030); Urine Bilirubin Dipstick Negative (Negative); Urine Clarity Clear (Clear); Urine Urobilinogen Normal (Normal)
--- NOTE | 2023-12-30 22:46 | EDS_ITS ---
HPI <Dr. Ava Good DO - Last Filed: 01/01/24 09:55> History of Present Illness Chief Complaint: Weakness Narrative Narrative: Patient is 73-year-old female with history of COPD, tobacco use, chronic anticoagulation (on Coumadin), atrial fibrillation, stroke and rheumatoid arthritis presenting via EMS for dizziness and multiple falls. Patient is had frequent falls but son states has been worse over the past few days. Tonight she fell through the TV and then knocked over a large potted plant. Patient does recall this and states that she gets dizzy and falls. She describes her dizziness as both a sensation of lightheadedness and room spinning sensation. It seems to be worse when she stands up. She attributes this to taking her medicine (clonidine and hydralazine) and states that she is post to take them apart so she does not pass out. She notes that she has had some associated nausea. She states that she did not hit her head and was able to catch herself. Son called EMS to have her brought to the emergency room. Patient tells me in the past few days she has been having a cough that is nonproductive. She denies associated chest pain. Son expresses to be concern for her ability to live home alone as she falls quite frequently. He states that at she has really bad depth perception and will think something is closer that it is and then fall trying to grab it. [facility] <Dr. 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 Myocardial infarction Atrial fibrillation Rheumatic fever Mitral prolapse Stroke Right renal artery stenosis 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 Anemia Depression Rheumatoid arthritis GERD (gastroesophageal reflux disease) COPD (chronic obstructive pulmonary disease) Irregular heart beat Deafness in left ear Myocardial infarct Seizures Stroke/cerebrovascular accident Hypertension Contusion of face Multiple falls Chronic anticoagulation Unsteady gait 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, chronic Abrasion of left ring finger Diabetes HTN (hypertension) Afib Home Medications ?Medication ?Instructions ?Recorded ?Last Taken ?Type atorvastatin 40 mg tablet 40 mg PO DAILY 01/15/23 Unknown History carbamazepine 200 mg tablet 200 mg PO .x4 01/15/23 Unknown History clonidine HCl 0.3 mg tablet 0.3 mg PO TID 01/15/23 01/15/23 History hydralazine 100 mg tablet 100 mg PO TID BLOOD PRESSURE 01/15/23 01/15/23 History ofloxacin 0.3 % eye drops 1 drp ophthalmic (eye) DAILY 01/15/23 Unknown History valsartan 160 mg tablet 160 mg PO BID 01/15/23 Unknown History amiodarone 200 mg tablet 200 mg PO DAILY 02/11/23 Unknown History calcium carbonate-vitamin D3 1 tab PO DAILY 02/11/23 Unknown History multivitamin (Daily Multi-Vitamin 1 tab PO DAILY 02/11/23 Unknown History tablet) polymyxin B sulfate 10,000 1 drp ophthalmic (eye) BID 02/11/23 Unknown History unit-trimethoprim 1 mg/mL eye drops CATARACTS warfarin 3 mg tablet 4.5 mg PO DAILY 02/11/23 Unknown History aspirin 81 mg chewable tablet 81 mg PO BREAKFAST #1 TAB 02/13/23 Unknown Rx carvedilol 25 mg tablet 25 mg PO BID #60 tabs 02/13/23 Unknown Rx Allergy/AdvReac Type Severity Reaction Status Date / Time ibuprofen Allergy Rash Verified 12/30/23 21:31 naproxen (From Naprosyn) Allergy Rash Verified 12/30/23 21:31 codeine AdvReac Other Verified 12/30/23 21:31 Surgical History Aortic valve replaced Hx of CABG S/P left knee arthroscopy Hx of CABG Aortic valve replaced Social History Smoking Status: Current every day smoker tobacco type: cigarettes ROS <Dr. Ava Good, DO - Last Filed: 01/01/24 09:55> ROS ED Constitutional Constitutional ED: Denies chills or fever(s) Eyes Eyes: Denies change in vision Cardiovascular Cardiovascular: Denies chest pain or palpitations Respiratory/Chest Respiratory/Chest: Reports cough; Denies dyspnea or sputum Gastrointestinal Gastrointestinal: Reports nausea; Denies abdominal pain or vomiting Musculoskeletal Musculoskeletal: Denies arthralgias or myalgias Integumentary Denies rash Neurologic Neurologic: Reports headache(s); Denies paresthesias or weakness Hematologic/Lymphatic Hematologic/Lymphatic: Reports easy bleeding and easy bruising EXAM <Dr. Ava Good, DO - Last Filed: 01/01/24 09:55> Physical Exam Const Vital Signs: 12/30/23 21:31 12/30/23 21:34 12/30/23 23:29 Temperature 98.3 F 98.7 F Temperature Source Oral Oral Pulse Rate 51 L 67 Pulse Rate [Lying] Pulse Rate [Sitting (for 1 minute prior to obtaining)] Pulse Rate [Standing (for 1 minute prior to obtaining)] Respiratory Rate 19 H 20 H Respiratory Effort Normal Respiratory Pattern Normal Blood Pressure 175/94 H 161/74 H Blood Pressure [Lying] Blood Pressure [Sitting (for 1 minute prior to obtaining)] Blood Pressure [Standing (for 1 minute prior to obtaining)] Blood Pressure Mean 121 103 Blood Pressure Mean [Lying] Blood Pressure Mean [Sitting (for 1 minute prior to obtaining)] Blood Pressure Mean [Standing (for 1 minute prior to obtaining)] Pulse Ox 97 97 Oxygen Delivery Method Room Air Room Air 12/30/23 23:42 12/31/23 00:03 12/31/23 00:52 Temperature 97.8 F Temperature Source Pulse Rate 66 51 L Pulse Rate [Lying] 86 Pulse Rate [Sitting (for 1 minute prior to obtaining)] 90 Pulse Rate [Standing (for 1 minute prior to obtaining)] 89 Respiratory Rate 18 18 Respiratory Effort Respiratory Pattern Normal Blood Pressure 173/82 H Blood Pressure [Lying] 172/85 H Blood Pressure [Sitting (for 1 minute prior to obtaining)] 176/121 H Blood Pressure [Standing (for 1 minute prior to obtaining)] 141/108 H Blood Pressure Mean 112 Blood Pressure Mean [Lying] 114 Blood Pressure Mean [Sitting (for 1 minute prior to obtaining)] 139 Blood Pressure Mean [Standing (for 1 minute prior to obtaining)] 119 Pulse Ox 98 Oxygen Delivery Method Positive well nourished and well developed General Appearance ED: well developed and NAD HEENT Reports moist mucous membranes Eyes PERRL and EOMs intact bilaterally Eyes Narrative: No nystagmus appreciated Neck supple and no JVD Chest Wall inspection of chest normal and palpation of chest normal Resp normal respiratory effort Resp Narrative: Scattered wheezing present, diminished at the bases Auscultation: wheezes Cardio regular rate and regular rhythm GI normal to inspection, nondistended, normoactive bowel sounds and non-tender Extremity normal to inspection General Extremety ED: Negative for edema or tenderness General Extremity: Negative for edema Neuro oriented x3 and no sensory deficits noted Neuro Narrative: NIH equals 0, normal [id number] Sensorium / Orientation: alert Motor Exam: strength 5/5 throughout; Negative for general weakness Psych mental status grossly normal Skin no rashes or lesions noted and no wounds <Dr. Tod Ghotra, DO - Last Filed: 12/31/23 01:12> Physical Exam Const Vital Signs: 12/30/23 21:31 12/30/23 21:34 12/30/23 23:29 Temperature 98.3 F 98.7 F Temperature Source Oral Oral Pulse Rate 51 L 67 Pulse Rate [Lying] Pulse Rate [Sitting (for 1 minute prior to obtaining)] Pulse Rate [Standing (for 1 minute prior to obtaining)] Respiratory Rate 19 H 20 H Respiratory Effort Normal Respiratory Pattern Normal Blood Pressure 175/94 H 161/74 H Blood Pressure [Lying] Blood Pressure [Sitting (for 1 minute prior to obtaining)] Blood Pressure [Standing (for 1 minute prior to obtaining)] Blood Pressure Mean 121 103 Blood Pressure Mean [Lying] Blood Pressure Mean [Sitting (for 1 minute prior to obtaining)] Blood Pressure Mean [Standing (for 1 minute prior to obtaining)] Pulse Ox 97 97 Oxygen Delivery Method Room Air Room Air 12/30/23 23:42 12/31/23 00:03 12/31/23 00:52 Temperature 97.8 F Temperature Source Pulse Rate 66 51 L Pulse Rate [Lying] 86 Pulse Rate [Sitting (for 1 minute prior to obtaining)] 90 Pulse Rate [Standing (for 1 minute prior to obtaining)] 89 Respiratory Rate 18 18 Respiratory Effort Respiratory Pattern Normal Blood Pressure 173/82 H Blood Pressure [Lying] 172/85 H Blood Pressure [Sitting (for 1 minute prior to obtaining)] 176/121 H Blood Pressure [Standing (for 1 minute prior to obtaining)] 141/108 H Blood Pressure Mean 112 Blood Pressure Mean [Lying] 114 Blood Pressure Mean [Sitting (for 1 minute prior to obtaining)] 139 Blood Pressure Mean [Standing (for 1 minute prior to obtaining)] 119 Pulse Ox 98 Oxygen Delivery Method MDM <Dr. Ava Good, DO - Last Filed: 01/01/24 09:55> [facility] Narrative Medical decision making narrative: Patient is evaluated for multiple falls. She has been complaining of cough, nausea, dizziness and headache. Differential includes intracranial hemorrhage, cerebellar stroke, residual deficits from prior stroke, encephalopathy, infection, pneumonia, COPD exacerb ation, viral syndrome, pneumothorax, ACS, CHASTITY and orthostatic hypotension. Will obtain lab work, CT of the brain, chest x-ray and with static vital signs. Patient is given a DuoNeb she does have wheezing on exam. Does have a history of COPD. Case management consult is placed. Lab work largely normal. She does have a mild elevation of her head since he troponin at 80. This does appear to her baseline. Will repeat to ensure it is not uptrending. Chest x-ray reviewed by myself as well as radiology does not show any acute process. CT of the brain does not show any acute process. Her INR is subtherapeutic at 1.4 and I do question if she is appropriately taking her medication. Orthostatic vital signs are pending at this time. I will sign out to oncoming physician pending ambulation trial, repeat troponin and orthostatic vital signs. Disposition based on these results. Lab Data Attestation: I reviewed the patient's lab results. Labs: Laboratory Results - last 24 hr 12/30/23 12/30/23 22:18 23:37 WBC 5.3 RBC 4.42 Hgb 14.0 Hct 40.5 MCV 91.6 MCH 31.7 MCHC 34.6 RDW Std Deviation 41.2 RDW Coeff of [place] 12.3 Plt Count 230 MPV 10.4 Immature Gran % (Auto) 0.600 Neut % (Auto) 51.2 Lymph % (Auto) 37.5 [place] % (Auto) 8.8 Eos % (Auto) 0.4 Baso % (Auto) 1.5 H Absolute Neuts (auto) 2.7 Absolute Lymphs (auto) 2.00 Nucleated RBC % 0 PT 16.7 H INR 1.4 Sodium 135 L Potassium 3.3 L Chloride 97 L Carbon Dioxide 32.0 Anion Gap 6 BUN 9 Creatinine 0.54 L Estim Creat Clear Calc 48.80 Est GFR (MDRD) Af Amer 141 Est GFR (MDRD) Non-Af 117 BUN/Creatinine Ratio 16.6 Glucose 118 H Calcium 9.1 Total Bilirubin 0.30 AST 20 ALT 22 Alkaline Phosphatase 89 Troponin I High Sens 80 H 90 H Total Protein 6.9 Albumin 3.7 Globulin 3.2 Albumin/Globulin Ratio 1.2 Lipase 29 Urine Color Yellow Urine Clarity Clear Urine pH 8.0 Ur Specific [place] 1.015 Urine Protein Negative Urine Glucose (UA) Normal Urine Ketones Negative Urine Occult Blood 10 H Urine Nitrite Negative Urine Bilirubin Negative Urine Urobilinogen Normal Ur Leukocyte Esterase Negative Urine RBC 0-5 SEEN Urine WBC 0 SEEN Ur Squamous Epith Cells 0 SEEN Urine Bacteria RARE Urine Mucus 0 SEEN Radiography Chest X-Ray - ED: 2 View, Read by ED Physician, Read by Radiologist and No Acute Disease Diagnostic Testing: Clinical Impression(s) from Imaging Studies Brain CT 12/30/23 22:08 IMPRESSION: Moderate atrophy and advanced periventricular white matter ischemic changes with multiple old infarcts. No evidence for acute intracranial hemorrhage Electronically Signed: Jose Manuel Coto MD at 22:56 EST Reading Location ID and State: [facility] / [place] Tel , Service support , Chest X-Ray 12/30/23 22:30 IMPRESSION: No radiographic evidence of acute cardiopulmonary disease. Electronically Signed: Rakesh Mercedes MD at 23:24 EST , Rhythm Strip Rhythm Strip: Sinus Rhythm Rate: 49 Ectopy: None EKG Initial EKG: Attestation: I personally reviewed and interpreted this EKG as follows: Interpretation: Sinus Bradycardia Comments: Sinus bradycardia rate of 49 bpm Prescribing block with a WA interval 244 Minimal voltage criteria for LVH Normal ST segment Prior EKG tracings: available for review Prior: Unchanged <Dr. Tod Ghotra, DO - Last Filed: 12/31/23 01:12> [facility] Narrative Medical decision making narrative: Patient is evaluated for multiple falls. She has been complaining of cough, nausea, dizziness and headache. Differential includes intracranial hemorrhage, cerebellar stroke, residual deficits from prior stroke, encephalopathy, infection, pneumonia, COPD exacerbation, viral syndrome, pneumothorax, ACS, CHASTITY and orthostatic hypotension. Will obtain lab work, CT of the brain, chest x-ray and with static vital signs. Patient is given a DuoNeb she does have wheezing on exam. Does have a history of COPD. Case management consult is placed. Lab work largely normal. She does have a mild elevation of her head since he troponin at 80. This does appear to her baseline. Will repeat to ensure it is not uptrending. Chest x-ray reviewed by myself as well as radiology does not show any acute process. CT of the brain does not show any acute process. Her INR is subtherapeutic at 1.4 and I do question if she is appropriately taking he r medication. Orthostatic vital signs are pending at this time. I will sign out to oncoming physician pending ambulation trial, repeat troponin and orthostatic vital signs. Disposition based on these results. Addendum 0111 hrs.: Reportedly the delta troponin was back prior to Dr. Good leaving. It is 90. Her orthostatics are negative. Plan is to discharge patient home. She has noted to be subtherapeutic on her INR. This would indicate that she would need to take double her Coumadin tonight tomorrow night have her rechecked early next week. However being on 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 need to be balanced with her frequent falling and she should probably have a discussion with her doctors regarding the safety of remaining on this medication. History & Record Review Discussion w/independent historian: Patient and Family Lab Data Labs: Laboratory Results - last 24 hr 12/30/23 12/30/23 22:18 23:37 WBC 5.3 RBC 4.42 Hgb 14.0 Hct 40.5 MCV 91.6 MCH 31.7 MCHC 34.6 RDW Std Deviation 41.2 RDW Coeff of [place] 12.3 Plt Count 230 MPV 10.4 Immature Gran % (Auto) 0.600 Neut % (Auto) 51.2 Lymph % (Auto) 37.5 [place] % (Auto) 8.8 Eos % (Auto) 0.4 Baso % (Auto) 1.5 H Absolute Neuts (auto) 2.7 Absolute Lymphs (auto) 2.00 Nucleated RBC % 0 PT 16.7 H INR 1.4 Sodium 135 L Potassium 3.3 L Chloride 97 L Carbon Dioxide 32.0 Anion Gap 6 BUN 9 Creatinine 0.54 L Estim Creat Clear Calc 48.80 Est GFR (MDRD) Af Amer 141 Est GFR (MDRD) Non-Af 117 BUN/Creatinine Ratio 16.6 Glucose 118 H Calcium 9.1 Total Bilirubin 0.30 AST 20 ALT 22 Alkaline Phosphatase 89 Troponin I High Sens 80 H 90 H Total Protein 6.9 Albumin 3.7 Globulin 3.2 Albumin/Globulin Ratio 1.2 Lipase 29 Urine Color Yellow Urine Clarity Clear Urine pH 8.0 Ur Specific [place] 1.015 Urine Protein Negative Urine Glucose (UA) Normal Urine Ketones Negative Urine Occult Blood 10 H Urine Nitrite Negative Urine Bilirubin Negative Urine Urobilinogen Normal Ur Leukocyte Esterase Negative Urine RBC 0-5 SEEN Urine WBC 0 SEEN Ur Squamous Epith Cells 0 SEEN Urine Bacteria RARE Urine Mucus 0 SEEN Radiography Diagnostic Testing: Clinical Impression(s) from Imaging Studies Brain CT 12/30/23 22:08 IMPRESSION: Moderate atrophy and advanced periventricular white matter ischemic changes with multiple old infarcts. No evidence for acute intracranial hemorrhage Electronically Signed: Jose Manuel Coto MD at 22:56 EST Reading Location ID and State: [facility] / [place] Tel , Service support , Chest X-Ray 12/30/23 22:30 IMPRESSION: No radiographic evidence of acute cardiopulmonary disease. Electronically Signed: Rakesh Mercedes MD at 23:24 EST , Discharge Plan Triage Chief Complaint: Weakness ED Provider: Ava Good Dx/Rx/DC Orders Clinical Impression: Multiple falls, Subtherapeutic international normalized ratio (INR) Instructions: ED Weakness (Uncertain Cause) Prescriptions: No Action atorvastatin 40 mg tablet 40 mg PO DAILY carbamazepine 200 mg tablet 200 mg PO .x4 clonidine HCl 0.3 mg tablet 0.3 mg PO TID Patient Comments: TOOK 2X TODAY hydralazine 100 mg tablet 100 mg PO TID Patient Comments: HAS TAKEN 2 DOSES TODAY ofloxacin 0.3 % drops 1 drp ophthalmic (eye) DAILY Patient Comments: TO LEFT EYE valsartan 160 mg tablet 160 mg PO BID amiodarone 200 mg tablet 200 mg PO DAILY polymyxin B sulf-trimethoprim 10,000 unit- 1 mg/mL drops 1 drp ophthalmic (eye) BID Patient Comments: NOT CURRETLY TAKING NEED REFILL warfarin 3 mg tablet 4.5 mg PO DAILY Patient Comments: TAKE 2 TABLETS BY MOUTH EVERY DAY; 4.5 mg TUESDAY, TUESDAY, TUESDAY (CURRENTLY 02/11/23 Rx Instructions: 4.5 mg TUESDAY, TUESDAY, TUESDAY; 3 mg Sat, Tue, , multivitamin [Daily Multi-Vitamin] Tablet 1 tab PO DAILY calcium carbonate-vitamin D3 [Calcium 500 + D (D3)] 1 tab PO DAILY aspirin 81 mg Tablet,Chewable 81 mg PO BREAKFAST Qty: 1 0RF carvedilol 25 mg Tablet 25 mg PO BID Qty: 60 0RF Primary Care Provider: Savage Gilliam Referrals: Savage Gilliam MD [Primary Care Provider] - Print Language: Syrian Disposition Disposition: Home, Self Care Discharge Date/Time: 12/31/23 01:08
[2023-12-30 22:47] LABS: ALB/GLOB Ratio 1.2 RATIO (0.9-2.4); AST(SGOT) 20 U/L (15-37); Alanine Aminotransfer ALT/SGPT 22 U/L (13-56); Albumin, Serum 3.7 g/dL (3.2-5.0); Alkaline Phosphatase 89 U/L (45-117); Anion Gap 6 (5-15); BUN 9 mg/dL (7-18); BUN/Creat Ratio 16.6 RATIO (10-20); Calcium,Total 9.1 mg/dL (8.5-10.1); Chloride 97 mmol/L (98-107); Creatinine, Serum 0.54 mg/dL (0.55-1.02); EST Glomerular Filtration Rate 117 mL/min (>60); Est Glom Filt Rate - Afr Amer 141 mL/min (>60); Globulin 3.2 g/dL (2.2-4.2); Glucose 118 mg/dL (74-106); Lipase 29 U/L (13-75); Potassium 3.3 mmol/L (3.5-5.1); Protein, Total 6.9 g/dL (6.4-8.2); Sodium Level 135 mmol/L (136-145); Troponin-I HS 80 pg/mL (3.0-54.0)
[2023-12-30 22:54] LABS: Bacteria RARE /hpf (None Seen); Red Blood Cells-Urine 0-5 SEEN /hpf (0-5)
[2023-12-30 23:29] VITALS: BP 161/74; PULSE 67; RESP 20; TEMP 37.1; O2SAT 97
[2023-12-30 23:42] VITALS: PULSE 66; RESP 18
[2023-12-30] MEDS: Ipratropium/Albuterol Sulfate 3 ML AMPUL.NEB INHALATION (23:42)
[2023-12-31 00:03] VITALS: BP 141/108; BP 172/85; BP 176/121; PULSE 86; PULSE 89; PULSE 90
[2023-12-31 00:05] LABS: Troponin-I HS 90 pg/mL (3.0-54.0)
[2023-12-31 00:52] VITALS: BP 173/82; PULSE 51; RESP 18; TEMP 36.6; O2SAT 98
== END 2023-12-31 01:08 | disposition home or self-care (01) ==
PROVIDERS: Emergency Provider Emergency Medicine; PCP Family Medicine; Referring Provider Emergency Medicine; Visit Provider Emergency Medicine
DX: R53.1 Weakness (principal); J44.9 Chronic obstructive pulmonary disease, unspecified; I48.91 Unspecified atrial fibrillation; E11.9 Type 2 diabetes mellitus without complications; R23.3 Spontaneous ecchymoses; T45.516A Underdosing of 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, initial encounter; R11.0 Nausea; I10 Essential (primary) hypertension; R42 Dizziness and giddiness; E78.5 Hyperlipidemia, unspecified; Z79.01 Long term (current) use of 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; I25.2 Old myocardial infarction; Z86.73 Personal history of transient ischemic attack (TIA), and cerebral infarction without residual deficits; Z95.1 Presence of aortocoronary bypass graft; Z95.2 Presence of prosthetic heart valve; F17.210 Nicotine dependence, cigarettes, uncomplicated; R05.9 Cough, unspecified; R29.6 Repeated falls
CPT/HCPCS: 70450; 71046; 80053; 81001; 83690; 84484; 85025; 85610; 87631; 93005; 94640; 99285; A4216

== ENCOUNTER 2024-01-17 07:05 | Observation (INO) | payer MEDICARE, SELFPAY ==
[2024-01-17] VITALS (11 sets, daily range): BP systolic 114–189; BP diastolic 62–92; PULSE 41–65; RESP 16–18; TEMP 36.4–37; O2SAT 95–99; BMI 24.7; BMI 22.8
--- NOTE | 2024-01-17 07:15 | CT_ITS ---
EXAM: CT HEAD WITHOUT INTRAVENOUS CONTRAST CLINICAL INDICATION: fall, on thinners TECHNIQUE: Multiple axial images were obtained of the head without intravenous contrast. This CT exam was performed using one or more of the following dose reduction techniques: automated exposure control, adjustment of the mA and/or kV according to patient size, and/or use of iterative reconstruction technique. COMPARISON: CT Head dated 12/30/2023 FINDINGS: BRAIN AND EXTRA-AXIAL SPACES: Stable right caudate nucleus and left thalamic chronic lacunar infarcts. No hemorrhage or mass effect. No acute ischemia. Areas of diminished white matter density noted within both cerebral hemispheres suggestive of chronic microvascular change. Small chronic bilateral cerebellar infarcts noted. Prominence of the cortical sulci and ventricles related to volume loss change. Basilar cisterns are patent. BONES/JOINTS: Normal calvarium. SINUSES: No acute sinusitis. MASTOID AIR CELLS: Normal. Clear. CT/Brain/Head without Contrast IMPRESSION: 1. No acute intracranial abnormality. 2. Stable chronic ischemic changes. Electronically Signed: Roverto Babin MD at 8:32 EST ,
--- NOTE | 2024-01-17 07:15 | CT_ITS ---
EXAM: CT CERVICAL SPINE WITHOUT INTRAVENOUS CONTRAST CLINICAL INDICATION: fall TECHNIQUE: Helically acquired images were obtained of the cervical spine without intravenous contrast. 2D reformatted images were reviewed. This CT exam was performed using one or more of the following dose reduction techniques: automated exposure control, adjustment of the mA and/or kV according to patient size, and/or use of iterative reconstruction technique. COMPARISON: No relevant prior studies available. FINDINGS: VERTEBRAE: Loss of the normal cervical lordosis which may be due to muscle spasm or head positioning. No acute fracture or subluxation. Superior endplate deformity of the C7 vertebral body appears to be chronic. DISCS/SPINAL CANAL/NEURAL FORAMINA: Prominent disc space narrowing noted at C3-4, C5-6 and C6-7. Right posterolateral disc protrusion at the C3-4 level causes narrowing of the lateral recess and adjacent foramen. Left central disc herniation at C6-7 causes mild spinal stenosis. SOFT TISSUES: Normal. No prevertebral soft tissue swelling. LYMPH NODES: Normal. No cervical adenopathy. LUNG APICES: Unremarkable as visualized. CT/Spine Cervical without Contras IMPRESSION: No acute fracture or subluxation. Degenerative changes noted with C3-4 and C6-7 disc herniations further described above. Electronically Signed: Roverto Babin MD at 8:37 EST ,
--- NOTE | 2024-01-17 07:15 | RAD_ITS ---
EXAM: XR RIGHT SHOULDER COMPLETE, 2 OR MORE VIEWS CLINICAL INDICATION: fall, pain TECHNIQUE: Two or more views of the right shoulder. COMPARISON: No relevant prior studies available. FINDINGS: BONES/JOINTS: Cephalic drift of the right humeral head suggestive of rotator cuff deformity. No acute fracture. No significant joint space narrowing. 5 mm round calcification adjacent to the proximal humerus may be related to tendinosis. SOFT TISSUES: Normal. No soft tissue swelling or gas. No radiopaque foreign body. RAD/Shoulder min 2 Views IMPRESSION: No acute fracture. As above. Electronically Signed: Roverto Babin MD at 8:40 EST ,
--- NOTE | 2024-01-17 07:15 | EKG12_ITS ---
Test Reason : FALL Blood Pressure : */* mmHG Vent. Rate : 42 BPM Atrial Rate : 42 BPM P-R Int : 230 ms QRS Dur : 94 ms QT Int : 522 ms P-R-T Axes : * 45 77 degrees QTcB Int : 435 ms Marked sinus bradycardia with 1st degree A-V block with Premature supraventricular complexes Anteroseptal infarct (cited on or before 15-Jan-2023) Abnormal ECG Confirmed by NICOLETTE PANIAGUA MD ([id number]), editor school photograph JONY ALVAREZ ([id number]) on 01/18/2024 12:40:53 PM Referred By: Confirmed By: NICOLETTE PANIAGUA MD
--- NOTE | 2024-01-17 07:16 | RAD_ITS ---
EXAM: XR CHEST, 2 VIEWS CLINICAL INDICATION: chest pain TECHNIQUE: Frontal and lateral views of the chest. COMPARISON: XR Chest dated 12/30/2023 FINDINGS: LUNGS AND PLEURAL SPACES: Normal. No consolidation or edema. No pneumothorax. No effusion. HEART: Stable borderline cardiomegaly. MEDIASTINUM: No mediastinal or hilar mass. BONES/JOINTS: No acute abnormality. TUBES, LINES AND DEVICES: Epicardial pacemaker wires are noted as well as aortic valve prosthesis. RAD/Chest PA and Lateral IMPRESSION: No acute cardiopulmonary abnormality. No interval change. Electronically Signed: Roverto Babin MD at 8:48 EST ,
--- NOTE | 2024-01-17 07:18 | EX.ED.DYSGE1 ---
HPI History of Present Illness Chief Complaint: Weakness Narrative Narrative: Patient is a 73-year-old female with previous past medical history of COPD, hyperlipidemia, bradycardia, CAD status post CABG three-vessel bypass in 2020, atrial flutter/fibrillation on warfarin, hypertension, diabetes who presented to the emerged part with a chief complaint of weakness. Patient states that this morning she was attempting to use her walker as she normally does to get to the bathroom and states that she had a fall 3 times. She states that she did hit her head and she does not believe that she passed out. Patient is complaining of right shoulder pain as well from the fall. Patient states that her blood pressure has been running high lately and states that she has been taking her medications as prescribed. Patient prior to going to bed last night felt her normal self. [facility] Medical History Hyperlipidemia Epilepsy HTN (hypertension) Tobacco abuse COPD (chronic obstructive pulmonary disease) Acute stroke due to ischemia correction (current) use of 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 Myocardial infarction Atrial fibrillation Rheumatic fever Mitral prolapse Stroke Right renal artery stenosis 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 Anemia Depression Rheumatoid arthritis GERD (gastroesophageal reflux disease) COPD (chronic obstructive pulmonary disease) Irregular heart beat Deafness in left ear Myocardial infarct Seizures Stroke/cerebrovascular accident Hypertension Contusion of face Multiple falls Chronic anticoagulation Unsteady gait 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, chronic Abrasion of left ring finger Diabetes HTN (hypertension) Afib Home Medications ?Medication ?Instructions ?Recorded ?Last Taken ?Type atorvastatin 40 mg tablet 40 mg PO DAILY 01/15/23 Unknown History carbamazepine 200 mg tablet 200 mg PO .x4 01/15/23 Unknown History clonidine HCl 0.3 mg tablet 0.3 mg PO TID 01/15/23 01/15/23 History hydralazine 100 mg tablet 100 mg PO TID BLOOD PRESSURE 01/15/23 01/15/23 History ofloxacin 0.3 % eye drops 1 drp ophthalmic (eye) DAILY 01/15/23 Unknown History valsartan 160 mg tablet 160 mg PO BID 01/15/23 Unknown History amiodarone 200 mg tablet 200 mg PO DAILY 02/11/23 Unknown History calcium carbonate-vitamin D3 1 tab PO DAILY 02/11/23 Unknown History multivitamin (Daily Multi-Vitamin 1 tab PO DAILY 02/11/23 Unknown History tablet) polymyxin B sulfate 10,000 1 drp ophthalmic (eye) BID 02/11/23 Unknown History unit-trimethoprim 1 mg/mL eye drops CATARACTS warfarin 3 mg tablet 4.5 mg PO DAILY 02/11/23 Unknown History aspirin 81 mg chewable tablet 81 mg PO BREAKFAST #1 TAB 02/13/23 Unknown Rx carvedilol 25 mg tablet 25 mg PO BID #60 tabs 02/13/23 Unknown Rx Allergy/AdvReac Type Severity Reaction Status Date / Time ibuprofen Allergy Rash Verified 01/17/24 07:10 naproxen (From Naprosyn) Allergy Rash Verified 01/17/24 07:10 codeine AdvReac Other Verified 01/17/24 07:10 Surgical History Aortic valve replaced Hx of CABG S/P left knee arthroscopy Hx of CABG Aortic valve replaced Social History Smoking Status: Current every day smoker tobacco type: cigarettes ROS ROS ED ROS Narrative Constitutional: Denies any headaches, fevers, chills, lightness, dizziness Eyes: Denies change in vision double vision blurry vision Cardiovascular: Denies chest pain or palpitations Respiratory: Denies cough or wheezing shortness of breath Abdomen: Denies abdominal pain nausea vomit diarrhea : Denies any urinary symptoms Neurological: Complains of generalized weakness denies any numbness, weakness, tingling Musculoskeletal: Complains of chronic back pain states this is unchanged Skin: Denies any rashes or lesions EXAM Physical Exam Narrative Exam Narrative: General: Patient was lying in bed rest comfortably did not appear to be acute distress Head: Atraumatic, normocephalic Eyes: PERRL bilaterally, EOMI biotic no conjunctival injection noted Neck: Soft, supple, trachea midline, no tenderness palpation midline of the cervical spine Cardiovascular: Patient is bradycardic with a regular rhythm no murmurs gallops rubs noted Respiratory: Clear to auscultation bilaterally Abdomen: Soft, nondistended, nontender to palpation, bowel sounds present x 4 Musculoskeletal: Patient has pain in her right shoulder with attempted range of motion all the bony prominences palpated and joints taken through full range of motion no pain elicited Extremities: +4/5 strength noted in the bilateral upper and lower extremities, radial pulses +2/4 in the bilateral upper extremities Neurological: Patient is following commands knew that she was at [facility] year is 2023 Skin: Warm, dry, intact no rashes or lesions noted Const Vital Signs: 01/17/24 07:05 01/17/24 07:10 01/17/24 07:22 Temperature 98.4 F Temperature Source Oral Pulse Rate 41 L Respiratory Rate 16 Respiratory Effort Normal Non-Labored Respiratory Pattern Normal Blood Pressure 189/74 H Blood Pressure Mean 112 Pulse Ox 97 96 Oxygen Delivery Method Room Air Room Air 01/17/24 09:11 Temperature 97.6 F L Temperature Source Oral Pulse Rate 64 Respiratory Rate 17 Respiratory Effort Respiratory Pattern Blood Pressure 183/87 H Blood Pressure Mean 119 Pulse Ox 99 Oxygen Delivery Method Room Air MDM MDM MDM Narrative Medical decision making narrative: Patient is a 73-year-old female who presented to the emerged part with chief complaint of generalized weakness. Patient will have a workup performed here on the differential diagnose includes but not limited to ACS, pneumonia, electrolyte abnormality, dehydration. Once workup is obtained reviewed she will be reevaluated. Patient CBC reviewed and showed no evidence leukocytosis white blood count normal at 6.8, hemoglobin 13.6, platelet count was noted to be normal at 212. Patient's patient CBC reviewed and showed no evidence leukocytosis white blood count normal at 6.8, hemoglobin 13.6, platelet count was noted to be normal at 212. Patient's INR was noted to be 2.7 she is on warfarin, sodium 137, potassium was low at 3.2 she was given 40 mill equivalents of oral replacement here in the emergency department. Patient's creatinine normal at 0.66. Patient's troponin elevated 86 and a delta troponin noted be 95 she chronically has elevated troponins based on previous blood draws. Patient does not have any chest pain here in the emergency department and her EKG was reviewed and showed sinus bradycardia with evidence of first-degree heart block. Once again the patient has chronic bradycardia noted this is unchanged for her. Patient TSH normal at 1.28, urinalysis reviewed and showed no evidence of infection. Patient's chest x-ray reviewed by myself and by radiology showed no acute cardiopulmonary processes. Patient's shoulder x-ray showed no acute fracture. Patient CT head and brain without contrast showed no acute intracranial abnormality stable chronic ischemic changes noted. Patient CT cervical spine reviewed and showed no acute fracture or subluxation she has degenerative changes noted within C3-C4 and C6-C7 disc herniations. On reevaluation did discuss with [place] member bedside and states that she has had multiple falls recently and feels that she is unsafe to continue to live alone at home. I will discuss case with hospitalist for admission. Discussed case with hospitalist Dr. Eddy for PT OT evaluation and potential placement. Patient was accepted for admission and she is agreeable this plan as well as family member bedside all question concerns answered. Lab Data Labs: Laboratory Results - last 24 hr 01/17/24 01/17/24 01/17/24 07:19 08:40 10:05 WBC 6.8 RBC 4.37 Hgb 13.6 Hct 40.4 MCV 92.4 MCH 31.1 MCHC 33.7 RDW Std Deviation 42.8 RDW Coeff of Geena 12.5 Plt Count 212 MPV 10.0 Immature Gran % (Auto) 0.700 Neut % (Auto) 60.7 Lymph % (Auto) 29.5 [place] % (Auto) 8.2 Eos % (Auto) 0.0 Baso % (Auto) 0.9 Absolute Neuts (auto) 4.2 Absolute Lymphs (auto) 2.02 Nucleated RBC % 0 PT 28.3 H INR 2.7 APTT 34.5 Sodium 137 Potassium 3.2 L Chloride 100 Carbon Dioxide 33.0 H Anion Gap 4 L BUN 8 Creatinine 0.66 Estim Creat Clear Calc 53.16 Est GFR (MDRD) Af Amer 112 Est GFR (MDRD) Non-Af 93 BUN/Creatinine Ratio 12.1 Glucose 122 H Calcium 9.3 Magnesium 2.0 Troponin I High Sens 86 H 95 H TSH 1.280 Urine Color Yellow Urine Clarity Sl. Cloudy Urine pH 7.0 Ur Specific [place] 1.005 Urine Protein Negative Urine Glucose (UA) Normal Urine Ketones Negative Urine Occult Blood 10 H Urine Nitrite Negative Urine Bilirubin Negative Urine Urobilinogen Normal Ur Leukocyte Esterase Negative Urine RBC 0 SEEN Urine WBC 0 SEEN Ur Squamous Epith Cells 0-5 SEEN Urine Bacteria 0 SEEN Urine Mucus 0 SEEN Radiography Diagnostic Testing: Clinical Impression(s) from Imaging Studies Brain CT 01/17/24 07:15 IMPRESSION: 1. No acute intracranial abnormality. 2. Stable chronic ischemic changes. Electronically Signed: Roverto Babin MD at 8:32 EST , Cervical Spine CT 01/17/24 07:15 IMPRESSION: No acute fracture or subluxation. Degenerative changes noted with C3-4 and C6-7 disc herniations further described above. Electronically Signed: Roverto Babin MD at 8:37 EST Reading Location ID and State: [facility] / [place] Tel , Service support , Shoulder X-Ray 01/17/24 07:15 IMPRESSION: No acute fracture. As above. Electronically Signed: Roverto Babin MD at 8:40 EST Reading Location ID and State: [facility] / [place] Tel , Service support , Chest X-Ray 01/17/24 07:16 IMPRESSION: No acute cardiopulmonary abnormality. No interval change. Electronically Signed: Roverto Babin MD at 8:48 EST Reading Location ID and State: [facility] / [place] Tel , Service support , Discharge Plan Triage Chief Complaint: Weakness ED Provider: Jose Carrion Dx/Rx/DC Orders Clinical Impression: Multiple falls, Generalized weakness Prescriptions: No Action atorvastatin 40 mg tablet 40 mg PO DAILY carbamazepine 200 mg tablet 200 mg PO .x4 clonidine HCl 0.3 mg tablet 0.3 mg PO TID Patient Comments: TOOK 2X TODAY hydralazine 100 mg tablet 100 mg PO TID Patient Comments: HAS TAKEN 2 DOSES TODAY ofloxacin 0.3 % drops 1 drp ophthalmic (eye) DAILY Patient Comments: TO LEFT EYE valsartan 160 mg tablet 160 mg PO BID amiodarone 200 mg tablet 200 mg PO DAILY polymyxin B sulf-trimethoprim 10,000 unit- 1 mg/mL drops 1 drp ophthalmic (eye) BID Patient Comments: NOT CURRETLY TAKING NEED REFILL warfarin 3 mg tablet 4.5 mg PO DAILY Patient Comments: TAKE 2 TABLETS BY MOUTH EVERY DAY; 4.5 mg TUESDAY, TUESDAY, TUESDAY (CURRENTLY 02/11/23 Rx Instructions: 4.5 mg TUESDAY, TUESDAY, TUESDAY; 3 mg Tue, Tue, , multivitamin [Daily Multi-Vitamin] Tablet 1 tab PO DAILY calcium carbonate-vitamin D3 [Calcium 500 + D (D3)] 1 tab PO DAILY aspirin 81 mg Tablet,Chewable 81 mg PO BREAKFAST Qty: 1 0RF carvedilol 25 mg Tablet 25 mg PO BID Qty: 60 0RF Primary Care Provider: Savage Gilliam Referrals: Savage Gilliam MD [Primary Care Provider] - Print Language: Gabonese Disposition Disposition: Acute Care Hospital [facility]
[2024-01-17 07:32] LABS: Absolute Lymphocyte Count 2.02 X10^3/uL (0.83-4.51); Absolute Neutrophil Count 4.2 X10^3/uL (2.0-7.7); Basophil# 0.06 X10^3/uL; Basophil% 0.9 % (0-1); Hematocrit 40.4 % (37-47); Hemoglobin 13.6 g/dL (12.0-15.0); Lymphocyte # 2.02 X10^3/ul (0.83-4.51); Lymphocyte % 29.5 % (19-41); Mean Corp Hgb Conc 33.7 g/dL (32-36); Mean Corpuscular Hgb 31.1 pg (27.0-32.0); Mean Corpuscular Volume 92.4 fL (81-99); Monocyte# 0.56 X10^3/uL; Monocyte% 8.2 % (0-10); NRBC Flagged by Analyzer 0 % (0-5); Neutrophil # 4.15 X10^3/uL (2.7-7.7); Neutrophil % 60.7 % (47-70); Platelet Count 212 K/mm3 (150-450); RBC Distribution Width CV 12.5 % (11.6-14.6); RBC Distribution Width SD 42.8 fl (35.1-43.9); Red Blood Count 4.37 M/mm3 (4.2-5.4); White Blood Count 6.8 K/mm3 (4.4-11.0)
[2024-01-17] MEDS: 0.9% Normal Saline (1000mL) 1,000 ML 999 ML IV (07:34)
[2024-01-17 07:56] LABS: Anion Gap 4 (5-15); BUN 8 mg/dL (7-18); BUN/Creat Ratio 12.1 RATIO (10-20); Calcium,Total 9.3 mg/dL (8.5-10.1); Chloride 100 mmol/L (98-107); Creatinine, Serum 0.66 mg/dL (0.55-1.02); EST Glomerular Filtration Rate 93 mL/min (>60); Est Glom Filt Rate - Afr Amer 112 mL/min (>60); Estimated Creatinine Clearance 53.16 ml/min; Glucose 122 mg/dL (74-106); International Normalized Ratio 2.7; Partial Thromboplast Time 34.5 Seconds (24.1-36.2); Potassium 3.2 mmol/L (3.5-5.1); Prothrombin Time (Protime)PT. 28.3 SECONDS (11.7-14.9); Sodium Level 137 mmol/L (136-145); Troponin-I HS 86 pg/mL (3.0-54.0)
[2024-01-17 08:46] LABS: Bacteria 0 SEEN /hpf (None Seen); Mucous, Urine 0 SEEN /hpf (<or=2+); Red Blood Cells-Urine 0 SEEN /hpf (0-5); White Blood Cells 0 SEEN /hpf (0-5)
[2024-01-17 08:55] LABS: Color, Urine Yellow (Yellow); Glucose, Dipstick Normal (Normal); Ketone-Dipstick Negative (Negative); Leukocyte Esterase-Dipstick Negative /ul (Negative); Nitrite-Dipstick Negative (Negative); Occult Blood-Urine 10 /ul (Negative); Protein-Dipstick Negative (Negative); Specific Gravity, Urine 1.005 (1.002-1.030); Urine Bilirubin Dipstick Negative (Negative); Urine Clarity Sl. Cloudy (Clear); Urine Urobilinogen Normal (Normal)
[2024-01-17 09:03] LABS: Squamous Epithelial Cells - UA 0-5 SEEN /hpf (5-10)
[2024-01-17] MEDS: Potassium Chloride Oral Soln 20 MEQ/15 ML UDC 40 MEQ PO (09:11)
[2024-01-17 10:32] LABS: Troponin-I HS 95 pg/mL (3.0-54.0)
--- NOTE | 2024-01-17 12:09 | CM.ED ---
Social Work Patients son approached this SW and MARGO Hughes in [facility], asking to speak to staff. SW introduced self, patients son stated that he had spoke to a SW about a year ago regarding his mother potentially needing additional assistance at home. Son stated at that time, they opted to keep patient at home but she has gotten progressively more weak and has had numerous falls over the last several days. Son states that patients sister has been living with the patient since July, but is no longer able to provide the amount of hands on care that patient needs. Patients sister then came out of patients room and talked with staff. Patients sister stated that she has been doing all the cooking and cleaning at home, and providing some of her personal care but that sister is physically not able to lift her when she falls. Patients son and sister stated that they believe patient needs an assistive living. SW told patients family that this information would be passed onto the SW on the acute floor. Ariana Salmeron, [employer] HELPER MACHINE, WOUND NURSE
--- NOTE | 2024-01-17 12:10 | PCM.HP.STD ---
HPI - General General Date of Admission: 01/17/24 HPI Narrative MARK MARTIN, is a 73 F who presents to the hospital with weakness. She lives at home and normally uses a walker to get around but states that this morning when she woke up she was having some increased difficulty with walking even using her walker. She had 3 falls today, none of which did she feel she passed out from. She did hit her head however CT of the brain was negative for head bleed. Urine analysis and chest x-ray were negative for any signs of infection. She was having some right shoulder pain as well but in the ER x-ray was negative for fracture. She did note that her blood pressure was running little bit high recently even though she has been taking her medications and a troponin was obtained in the ER which was elevated but it is chronically elevated and she is not having any chest pain or shortness of breath at this time. 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 Myocardial infarction Atrial fibrillation Rheumatic fever Mitral prolapse Stroke Right renal artery stenosis 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 Anemia Depression Rheumatoid arthritis GERD (gastroesophageal reflux disease) COPD (chronic obstructive pulmonary disease) Irregular heart beat Deafness in left ear Myocardial infarct Seizures Stroke/cerebrovascular accident Hypertension Contusion of face Multiple falls Chronic anticoagulation Unsteady gait 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, chronic Abrasion of left ring finger Diabetes HTN (hypertension) Afib Home Medications ?Medication ?Instructions ?Recorded ?Last Taken ?Type atorvastatin 40 mg tablet 40 mg PO DAILY 01/15/23 Unknown History carbamazepine 200 mg tablet 200 mg PO .x4 01/15/23 Unknown History clonidine HCl 0.3 mg tablet 0.3 mg PO TID 01/15/23 01/15/23 History hydralazine 100 mg tablet 100 mg PO TID BLOOD PRESSURE 01/15/23 01/15/23 History valsartan 160 mg tablet 160 mg PO BID 01/15/23 Unknown History amiodarone 200 mg tablet 200 mg PO DAILY 02/11/23 Unknown History calcium carbonate-vitamin D3 1 tab PO DAILY 02/11/23 Unknown History multivitamin (Daily Multi-Vitamin 1 tab PO DAILY 02/11/23 Unknown History tablet) warfarin 3 mg tablet 4.5 mg PO DAILY 02/11/23 Unknown History aspirin 81 mg chewable tablet 81 mg PO BREAKFAST #1 TAB 02/13/23 Unknown Rx carvedilol 25 mg tablet 25 mg PO BID #60 tabs 02/13/23 Unknown Rx Allergy/AdvReac Type Severity Reaction Status Date / Time ibuprofen Allergy Rash Verified 01/17/24 07:10 naproxen (From Naprosyn) Allergy Rash Verified 01/17/24 07:10 codeine AdvReac Other Verified 01/17/24 07:10 Family History (Updated 01/17/24 @ 12:[address] Sukumar Eddy MD) Other Heart disease Surgical History Aortic valve replaced Hx of CABG S/P left knee arthroscopy Hx of CABG Aortic valve replaced Social History Smoking Status: Current every day smoker tobacco type: cigarettes ROS Constitutional Constitutional: Reports weakness; Denies chills, fatigue, fever(s) or malaise Eyes Eyes: Denies blurry vision ENT HEENT: Denies headache(s) or nasal discharge Cardiovascular Cardiovascular: Denies chest pain, dyspnea on exertion or syncope Respiratory/Chest Respiratory/Chest: Denies cough, shortness of breath at rest or shortness of breath with exertion Gastrointestinal Gastrointestinal: Denies constipation, diarrhea, nausea or vomiting Genitourinary Genitourinary: Denies dysuria Musculoskeletal Musculoskeletal: Reports joint pain Neurologic Neurologic: Denies focal weakness, numbness or tremor(s) Psychiatric Psychiatric: Denies anxiety or depression Vital Signs Vital Signs Vital Signs: 01/17/24 07:05 01/17/24 07:10 01/17/24 07:22 Temperature 98.4 F Temperature Source Oral Pulse Rate 41 L Respiratory Rate 16 Respiratory Effort Normal Non-Labored Respiratory Pattern Normal Blood Pressure 189/74 H Blood Pressure Mean 112 Pulse Ox 97 96 Oxygen Delivery Method Room Air Room Air 01/17/24 09:11 01/17/24 11:30 01/17/24 11:31 Temperature 97.6 F L 98.5 F Temperature Source Oral Pulse Rate 64 45 L 45 L Respiratory Rate 17 16 16 Respiratory Effort Respiratory Pattern Blood Pressure 183/87 H 172/83 H 172/83 H Blood Pressure Mean 119 112 112 Pulse Ox 99 99 99 Oxygen Delivery Method Room Air Room Air Weight Weight: 135 lb 2.294 oz Body Mass Index (BMI) 24.7 Physical Exam Narrative General: Alert, Oriented x3, Cooperative, No apparent distress HEENT: Atraumatic, PERRLA, EOMI, Normocephalic Oral: Moist Mucosa Neck: Supple, No JVD Lungs: Diminished, Normal air movement, No rhonchi, No wheeze, No rales Cardiovascular: Regular rate, Regular Rhythm, Normal S1, Normal S2, No murmurs Abdomen: Soft, Non Tender, Non-Distended, No Hepato-splenomegaly Extremities: No edema, Capillary Refill Less than 3 Seconds Skin: No rashes, No breakdown Musculoskeletal: No Tenderness to Palpation of Joints or Extremities Neurological: No focal neurological deficits, Motor Exam 5/5 strength throughout, Sensory exam intact to light touch and pain Psych/Mental Status: Normal Affect, Appropriate Results Lab / Micro Data 01/17/24 07:19 01/17/24 07:19 Labs: Laboratory Results - last 24 hr 01/17/24 07:19: WBC 6.8, RBC 4.37, Hgb 13.6, Hct 40.4, MCV 92.4, MCH 31.1, MCHC 33.7, RDW Std Deviation 42.8, RDW Coeff of [place] 12.5, Plt Count 212, MPV 10.0, Immature Gran % (Auto) 0.700, Neut % (Auto) 60.7, Lymph % (Auto) 29.5, [place] % (Auto) 8.2, Eos % (Auto) 0.0, Baso % (Auto) 0.9, Absolute Neuts (auto) 4.2, Absolute Lymphs (auto) 2.02, Nucleated RBC % 0, PT 28.3 H, INR 2.7, APTT 34.5, Sodium 137, Potassium 3.2 L, Chloride 100, Carbon Dioxide 33.0 H, Anion Gap 4 L, BUN 8, Creatinine 0.66, Estim Creat Clear Calc 53.16, Est GFR (MDRD) Af Amer 112, Est GFR (MDRD) Non-Af 93, BUN/Creatinine Ratio 12.1, Glucose 122 H, Calcium 9.3, Magnesium 2.0, Troponin I High Sens 86 H, TSH 1.280 01/17/24 08:40: Urine Color Yellow, Urine Clarity Sl. Cloudy, Urine pH 7.0, Ur Specific [place] 1.005, Urine Protein Negative, Urine Glucose (UA) Normal, Urine Ketones Negative, Urine Occult Blood 10 H, Urine Nitrite Negative, Urine Bilirubin Negative, Urine Urobilinogen Normal, Ur Leukocyte Esterase Negative, Urine RBC 0 SEEN, Urine WBC 0 SEEN, Ur Squamous Epith Cells 0-5 SEEN, Urine Bacteria 0 SEEN, Urine Mucus 0 SEEN 01/17/24 10:05: Troponin I High Sens 95 H Imaging Radiology Impression Brain CT 01/17/24 07:15 IMPRESSION: 1. No acute intracranial abnormality. 2. Stable chronic ischemic changes. Electronically Signed: Roverto Babin MD at 8:32 EST , Cervical Spine CT 01/17/24 07:15 IMPRESSION: No acute fracture or subluxation. Degenerative changes noted with C3-4 and C6-7 disc herniations further described above. Electronically Signed: Roverto Babin MD at 8:37 EST Reading Location ID and State: [facility] / [place] Tel , Service support , Shoulder X-Ray 01/17/24 07:15 IMPRESSION: No acute fracture. As above. Electronically Signed: Roverto Babin MD at 8:40 EST Reading Location ID and State: [employer] / [place] Tel , Service support , Chest X-Ray 01/17/24 07:16 IMPRESSION: No acute cardiopulmonary abnormality. No interval change. Electronically Signed: Roverto Babin MD at 8:48 EST , Assessment & Plan Assessment/Plan (1) Generalized weakness: PLAN: Plan 1. Weakness and debility ? Unclear as to the etiology, will obtain a PT/OT evaluation ? Infectious workup was unremarkable ? He does have a history of CVA with her most recent being in February 2023, currently neuroexam is unremarkable and nonfocal ? She is refusing SNF placement though the son states that most of her issues with walking occur when she is taking her blood pressure medications which she has not taken today 2. Essential HTN/HLD/history of CVA/rheumatic aortic valve disease status post replacement/A-fib ? Continue with Coumadin, INR is 2.7 ? Continue with her home blood pressure medications as well as her amiodarone ? Continue with her home cholesterol medications ? Monitor make adjustments as necessary ? Echo on 02/12/2023 with an EF of 65% with a severely enlarged left atria and negative for PFO DVT: Coumadin 75 minutes was spent on direct patient care, including documentation as well as chart review and collaboration with colleagues Charges/Coding Visit Charges Inpatient E&M: 37702 Init Hosp L3
--- NOTE | 2024-01-17 16:30 | CASEMGMT ---
Social Work- SW attempted to meet with pt and family in room to discuss d/c plans. Pt reports that family may return later this evening. SW will follow up tomorrow. SEUN Garcia
[2024-01-17] MEDS: hydrALAZINE 50 MG Tablet 100 MG PO (16:50)
[2024-01-17] MEDS: carBAMazepine 200 MG Tablet 400 MG PO (16:50)
[2024-01-17] MEDS: Clonidine HCl 0.1 MG, Clonidine HCl 0.2 MG 0.3 MG PO ×2 (16:50→23:19)
[2024-01-17] MEDS: Warfarin (BKC) 3 MG Tablet PO (16:51)
[2024-01-17] MEDS: Atorvastatin Calcium 40 MG Tablet PO (19:57)
[2024-01-17] MEDS: Acetaminophen 325 MG Tablet 650 MG PO (22:32)
[2024-01-17] MEDS: Carvedilol 25 MG Tablet PO (23:19)
[2024-01-18 05:13] VITALS: PULSE 56
[2024-01-18] MEDS: hydrALAZINE 50 MG Tablet 100 MG PO (05:13)
[2024-01-18] MEDS: Clonidine HCl 0.1 MG, Clonidine HCl 0.2 MG 0.3 MG PO (05:13)
[2024-01-18 05:39] LABS: Absolute Lymphocyte Count 2.17 X10^3/uL (0.83-4.51); Absolute Neutrophil Count 4.3 X10^3/uL (2.0-7.7); Basophil# 0.06 X10^3/uL; Basophil% 0.8 % (0-1); Hematocrit 38.3 % (37-47); Hemoglobin 13.1 g/dL (12.0-15.0); Lymphocyte # 2.17 X10^3/ul (0.83-4.51); Lymphocyte % 30.1 % (19-41); Mean Corp Hgb Conc 34.2 g/dL (32-36); Mean Corpuscular Hgb 31.7 pg (27.0-32.0); Mean Corpuscular Volume 92.7 fL (81-99); Mean Platelet Vol. 10.3 fl (6.2-12.0); Monocyte% 9.7 % (0-10); NRBC Flagged by Analyzer 0 % (0-5); Neutrophil # 4.25 X10^3/uL (2.7-7.7); Neutrophil % 58.8 % (47-70); Platelet Count 198 K/mm3 (150-450); RBC Distribution Width CV 12.9 % (11.6-14.6); RBC Distribution Width SD 43.9 fl (35.1-43.9); Red Blood Count 4.13 M/mm3 (4.2-5.4); White Blood Count 7.2 K/mm3 (4.4-11.0)
[2024-01-18] MEDS: Acetaminophen 325 MG Tablet 650 MG PO (05:44)
[2024-01-18 05:48] LABS: Prothrombin Time (Protime)PT. 31.3 SECONDS (11.7-14.9)
[2024-01-18 05:51] VITALS: BP 149/73; PULSE 57; RESP 16; TEMP 36.5; O2SAT 96
[2024-01-18 06:08] LABS: Anion Gap 5 (5-15); BUN 14 mg/dL (7-18); BUN/Creat Ratio 22.1 RATIO (10-20); Calcium,Total 8.9 mg/dL (8.5-10.1); Chloride 105 mmol/L (98-107); Creatinine, Serum 0.63 mg/dL (0.55-1.02); EST Glomerular Filtration Rate 97 mL/min (>60); Est Glom Filt Rate - Afr Amer 118 mL/min (>60); Glucose 124 mg/dL (74-106); Potassium 3.3 mmol/L (3.5-5.1); Sodium Level 140 mmol/L (136-145)
[2024-01-18 08:38] VITALS: BP 151/66; PULSE 43; RESP 16; TEMP 36.6; O2SAT 96
[2024-01-18] MEDS: Aspirin 81 MG TAB.CHEW PO (08:53)
[2024-01-18] MEDS: carBAMazepine 200 MG Tablet 400 MG PO (08:53)
[2024-01-18] MEDS: Multivitamins,Therapeutic Tablet 1 TABLET PO (08:53)
--- NOTE | 2024-01-18 09:33 | PCM.DC ---
Discharge Instructions Diet Discharge Diet: Low fat / Low cholesterol DC O2, CPAP, BIPAP needs Additional Home O2 Discharge instructions: No Dressing / Incision Discharge Activity: Return to Normal Activity Dressing / Incision Call your doctor if you observe: Fever of 101 or Higher, Shortness of breath, Dizziness, Fainting spells, Swelling in the ankles, Chest pain and Increased palpitations (irregular heartbeat) Follow Up Care Test Results: Test results from this visit will be discussed in further detail at your follow-up appointment, if applicable. Discharge Plan Admission Admit Date/Time: 01/17/24 11:18 Attending Provider: Sukumar Eddy Primary Care Provider: Savage Gilliam Discharge Orders/Prescriptions Prescriptions: New clonidine HCl 0.2 mg Tablet 0.2 mg PO TID 30 Days Qty: 90 0RF hydralazine 50 mg Tablet 50 mg PO TID 30 Days Qty: 90 0RF Continued atorvastatin 40 mg tablet 40 mg PO DAILY carbamazepine 200 mg tablet 200 mg PO .x4 valsartan 160 mg tablet 160 mg PO BID amiodarone 200 mg tablet 200 mg PO DAILY warfarin 3 mg tablet 4.5 mg PO DAILY Patient Comments: TAKE 2 TABLETS BY MOUTH EVERY DAY; 4.5 mg TUESDAY, TUESDAY, TUESDAY (CURRENTLY 02/11/23 Rx Instructions: 4.5 mg TUESDAY, TUESDAY, TUESDAY; 3 mg Tue, Tue, , multivitamin [Daily Multi-Vitamin] Tablet 1 tab PO DAILY calcium carbonate-vitamin D3 [Calcium 500 + D (D3)] 1 tab PO DAILY aspirin 81 mg Tablet,Chewable 81 mg PO BREAKFAST Qty: 1 0RF carvedilol 25 mg Tablet 25 mg PO BID Qty: 60 0RF Discontinued clonidine HCl 0.3 mg tablet 0.3 mg PO TID Patient Comments: TOOK 2X TODAY hydralazine 100 mg tablet 100 mg PO TID Patient Comments: HAS TAKEN 2 DOSES TODAY Referrals / Follow Up: Savage Gilliam MD [Primary Care Provider] - 01/27/24 3:00 pm Disposition Disposition (needs filled in before D/C Order can be placed): Home, Self Care
[2024-01-18] MEDS: Losartan Potassium 50 MG Tablet PO (10:35)
[2024-01-18] MEDS: Amiodarone 200 MG Tablet PO (10:35)
--- NOTE | 2024-01-18 10:44 | CASEMGMT ---
Discharge Planning A list of SNF providers including quality and resource use data and consistent with the patient's preferred geographic region, medical needs, and insurance network was created in [employer] Guide.? This list was provided to the SW. Kellie Camejo Discharge Planning Asst.
--- NOTE | 2024-01-18 13:45 | PHA.DC.MR.R ---
Pharmacy [place] Med Reconciliation Pharmacy Service has performed discharge medication reconciliation for this patient. The patient's discharge medication list was reviewed for discrepancies and discrepancies were resolved. Medications at Discharge Home Medications atorvastatin 40 mg tablet 40 mg PO DAILY 01/15/23 carbamazepine 200 mg tablet 200 mg PO .x4 01/15/23 valsartan 160 mg tablet 160 mg PO BID 01/15/23 amiodarone 200 mg tablet 200 mg PO DAILY 02/11/23 calcium carbonate-vitamin D3 1 tab PO DAILY 02/11/23 multivitamin (Daily Multi-Vitamin tablet) 1 tab PO DAILY 02/11/23 warfarin 3 mg tablet 4.5 mg PO DAILY 02/11/23 aspirin 81 mg chewable tablet 81 mg PO BREAKFAST #1 TAB 02/13/23 carvedilol 25 mg tablet 25 mg PO BID #60 tabs 02/13/23 clonidine HCl 0.2 mg tablet 0.2 mg PO TID 30 days #90 tabs 01/18/24 hydralazine 50 mg tablet 50 mg PO TID 30 days #90 tabs 01/18/24
--- NOTE | 2024-01-18 14:44 | CASEMGMT ---
Social Work- SW attempted to meet with pt and family; family not present. PT reported that her chest hurt from the fall and she preferred to rest. SW left information on care patrol, private pay prices for assisted living, [facility] assisted living waiver, and information on handrails as well as people to people and [employer] for potential financial assistance. SW offered that family can come to nurse's station with questions, as pt declined having any questions. SW remains available to follow. Pt reports that her plan is home, no assistance needed. SEUN Garcia
--- NOTE | 2024-01-18 15:31 | DS.PCM_ITS ---
Providers Date of Admission: 01/17/24 Primary Care Physician: Savage Gilliam MD Reason For Visit: WEAKNESS Diagnosis Discharge Diagnosis (1) Generalized weakness: Status: Acute Code(s): R53.1 - Weakness Medications at Discharge Home Medications atorvastatin 40 mg tablet 40 mg PO DAILY 01/15/23 carbamazepine 200 mg tablet 200 mg PO .x4 01/15/23 valsartan 160 mg tablet 160 mg PO BID 01/15/23 amiodarone 200 mg tablet 200 mg PO DAILY 02/11/23 calcium carbonate-vitamin D3 1 tab PO DAILY 02/11/23 multivitamin (Daily Multi-Vitamin tablet) 1 tab PO DAILY 02/11/23 warfarin 3 mg tablet 4.5 mg PO DAILY 02/11/23 aspirin 81 mg chewable tablet 81 mg PO BREAKFAST #1 TAB 02/13/23 carvedilol 25 mg tablet 25 mg PO BID #60 tabs 02/13/23 clonidine HCl 0.2 mg tablet 0.2 mg PO TID 30 days #90 tabs 01/18/24 hydralazine 50 mg tablet 50 mg PO TID 30 days #90 tabs 01/18/24 Hospital Course Operations None Procedures None Summary of Care Provided Minutes Spent on Discharge: 35 Hospital Course: Per HPI: MARK MARTIN, is a 73 F who presents to the hospital with weakness. She lives at home and normally uses a walker to get around but states that this morning when she woke up she was having some increased difficulty with walking even using her walker. She had 3 falls today, none of which did she feel she passed out from. She did hit her head however CT of the brain was negative for head bleed. Urine analysis and chest x-ray were negative for any signs of infection. She was having some right shoulder pain as well but in the ER x-ray was negative for fracture. She did note that her blood pressure was running little bit high recently even though she has been taking her medications and a troponin was obtained in the ER which was elevated but it is chronically elevated and she is not having any chest pain or shortness of breath at this time. Hospital Course: 1. Weakness and debility?73-year-old female presented to the hospital after multiple falls in 1 day she says that her legs just give out from under her though she has no numbness or tingling. Her son thinks it might be related to her blood pressure medications because whenever she is taking all of appropriately she seems to be weaker. When she presented to the hospital she had PT evaluation and she was noted to walk 115 feet with standby assist however the son maintained that this was because she had not taken her blood pressure medications therefore she was observed overnight and there were some adjustments to her blood pressure medications most notably her clonidine was decreased to 0.2 mg p.o. 3 times daily and her hydralazine was decreased to 50 mg p.o. 3 times daily. On the day of discharge she ambulated 120 feet with standby assist. Unfortunately the son still requested that she be placed at a [place] however she does not meet criteria and more importantly she is refusing to go to a [place] at this time. She is alert and oriented x 3 and I explained to the son that therefore she can make what ever decision she wants in regard to her own health. I discussed with her the plan for discharge she expressed understanding the risk benefits going home and want to go home today. She states that she had come initially to the hospital just to make sure nothing was broken but she never wanted to go to the [place] facility in the first place. Of note infectious workup was negative, UA was normal and chest x-ray was unremarkable. Viral panel was also normal. 2. 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 Her home medications were continued where appropriate Physical Exam Narrative General: Alert, Oriented x3, Cooperative, No apparent distress HEENT: Atraumatic, PERRLA, EOMI, Normocephalic Oral: Moist Mucosa Neck: Supple, No JVD Lungs: Diminished, Normal air movement, No rhonchi, No wheeze, No rales Cardiovascular: Regular rate, Regular Rhythm, Normal S1, Normal S2, No murmurs Abdomen: Soft, Non Tender, Non-Distended, No Hepato-splenomegaly Extremities: No edema, Capillary Refill Less than 3 Seconds Skin: No rashes, No breakdown Musculoskeletal: No Tenderness to Palpation of Joints or Extremities Neurological: No focal neurological deficits, Motor Exam 5/5 strength throughout, Sensory exam intact to light touch and pain Psych/Mental Status: Normal Affect, Appropriate Weight / BMI Weight Weight: 125 lb Body Mass Index (BMI) 22.8 ABG / Lab / Microbiology Data 01/18/24 04:46 01/18/24 04:46 Laboratory: Laboratory Results - last 24 hr 01/18/24 04:46: WBC 7.2, RBC 4.13 L, Hgb 13.1, Hct 38.3, MCV 92.7, MCH 31.7, MCHC 34.2, RDW Std Deviation 43.9, RDW Coeff of Geena 12.9, Plt Count 198, MPV 10.3, Immature Gran % (Auto) 0.600, Neut % (Auto) 58.8, Lymph % (Auto) 30.1, [place] % (Auto) 9.7, Eos % (Auto) 0.0, Baso % (Auto) 0.8, Absolute Neuts (auto) 4.3, Absolute Lymphs (auto) 2.17, Nucleated RBC % 0, PT 31.3 H, INR 3.0, Sodium 140, Potassium 3.3 L, Chloride 105, Carbon Dioxide 30.0, Anion Gap 5, BUN 14, Creatinine 0.63, Estim Creat Clear Calc 48.80, Est GFR (MDRD) Af Amer 118, Est GFR (MDRD) Non-Af 97, BUN/Creatinine Ratio 22.1 H, Glucose 124 H, Calcium 8.9 D/C Instructions Discharge Diet: Low fat / Low cholesterol Call your doctor if you observe: Fever of 101 or Higher, Shortness of breath, Dizziness, Fainting spells, Swelling in the ankles, Chest pain and Increased palpitations (irregular heartbeat) DC O2, CPAP, BIPAP Needs Additional Home O2 Discharge instructions: No DC home with Oxygen: No Meaningful Use Info Meaningful Use Meaningful Use Diagnoses (Choose all that apply): None applicable Ischemic Stroke Statin Dosing Therapy Reference: STATIN DOSE THERAPY REFERENCE: * Patients > 75 years receive moderate or high dose statin therapy. * Patients 75 years or YOUNGER should receive HIGH intensity statin dose unless contraindicated. You will be required to document reason for non-treatment if statin daily dose does not meet guidelines. HIGH DOSE STATIN THERAPY DAILY Atorvastatin > than or = to 40 mg Rosuvastatin > than or = to 20 mg Amlodipine + Atorvastatin > than or = to 2.5/40 mg Ezetimibe + Simvastatin 10/80 mg Simvastatin 80mg Discharge Plan Admission Admit Date/Time: 01/17/24 11:18 Attending Provider: Kotsonis,Sukumar F Primary Care Provider: Savage Gilliam Discharge Orders/Prescriptions Prescriptions: New clonidine HCl 0.2 mg Tablet 0.2 mg PO TID 30 Days Qty: 90 0RF hydralazine 50 mg Tablet 50 mg PO TID 30 Days Qty: 90 0RF Continued atorvastatin 40 mg tablet 40 mg PO DAILY carbamazepine 200 mg tablet 200 mg PO .x4 valsartan 160 mg tablet 160 mg PO BID amiodarone 200 mg tablet 200 mg PO DAILY warfarin 3 mg tablet 4.5 mg PO DAILY Patient Comments: TAKE 2 TABLETS BY MOUTH EVERY DAY; 4.5 mg TUESDAY, TUESDAY, TUESDAY (CURRENTLY 02/11/23 Rx Instructions: 4.5 mg TUESDAY, TUESDAY, TUESDAY; 3 mg Tue, Tue, , multivitamin [Daily Multi-Vitamin] Tablet 1 tab PO DAILY calcium carbonate-vitamin D3 [Calcium 500 + D (D3)] 1 tab PO DAILY aspirin 81 mg Tablet,Chewable 81 mg PO BREAKFAST Qty: 1 0RF carvedilol 25 mg Tablet 25 mg PO BID Qty: 60 0RF Discontinued clonidine HCl 0.3 mg tablet 0.3 mg PO TID Patient Comments: TOOK 2X TODAY hydralazine 100 mg tablet 100 mg PO TID Patient Comments: HAS TAKEN 2 DOSES TODAY Referrals / Follow Up: Savage Gilliam MD [Primary Care Provider] - 01/27/24 3:00 pm Disposition Disposition (needs filled in before D/C Order can be placed): Home, Self Care Charges/Coding Visit Charges Inpatient E&M: 61268 Disch Hosp >30min
== END 2024-01-18 13:59 | disposition home or self-care (01) ==
LOC: ED 11:22 → MS3 11:30
PROVIDERS: Admitting Provider Family Medicine; Emergency Provider Emergency Medicine; PCP Family Medicine; Visit Provider Family Medicine
DX: R53.1 Weakness (principal); M06.9 Rheumatoid arthritis, unspecified; J44.9 Chronic obstructive pulmonary disease, unspecified; I48.91 Unspecified atrial fibrillation; E11.9 Type 2 diabetes mellitus without complications; I44.0 Atrioventricular block, first degree; E78.5 Hyperlipidemia, unspecified; I10 Essential (primary) hypertension; R53.81 Other malaise; M25.511 Pain in right shoulder; Z79.01 Long term (current) use of 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; R94.31 Abnormal electrocardiogram [ECG] [EKG]; Z79.899 Other long term (current) drug therapy; K21.9 Gastro-esophageal reflux disease without esophagitis; Z79.82 Long term (current) use of aspirin; F17.210 Nicotine dependence, cigarettes, uncomplicated; R29.6 Repeated falls
CPT/HCPCS: 36415; 70450; 71046; 72125; 73030; 80048; 81001; 83735; 84443; 84484; 85025; 85610; 85730; 93005; 96360; 96361; 97110; 97162; 97166; 97530; 99221; 99285; A4216; G0378

== ENCOUNTER 2024-02-07 09:05 | Emergency (ER) | payer MEDICARE, SELFPAY ==
[2024-02-07 09:05] VITALS: BP 119/85; PULSE 68; RESP 16; TEMP 36.6; O2SAT 94; BMI 23.7
--- NOTE | 2024-02-07 09:17 | EX.ED.DYSGE1 ---
HPI History of Present Illness Chief Complaint: Syncope [facility] Medical History (Updated 02/07/24 @ 12:[address] 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 Atrial fibrillation Rheumatic fever Mitral prolapse Right renal artery stenosis 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 Anemia Depression Rheumatoid arthritis GERD (gastroesophageal reflux disease) COPD (chronic obstructive pulmonary disease) Deafness in left ear Myocardial infarct Contusion of face Unsteady gait Abrasion of left ring finger Diabetes HTN (hypertension) Home Medications ?Medication ?Instructions ?Recorded ?Last Taken ?Type amiodarone 200 mg tablet 200 mg PO DAILY 02/11/23 Unknown History calcium carbonate-vitamin D3 1 tab PO DAILY 02/11/23 Unknown History multivitamin (Daily Multi-Vitamin 1 tab PO DAILY 02/11/23 Unknown History tablet) warfarin 3 mg tablet 4.5 mg PO DAILY 02/11/23 Unknown History aspirin 81 mg chewable tablet 81 mg PO BREAKFAST #1 TAB 02/13/23 Unknown Rx clonidine HCl 0.2 mg tablet 0.2 mg PO TID 30 days #90 tabs 01/18/24 Unknown Rx hydralazine 50 mg tablet 50 mg PO TID 30 days #90 tabs 01/18/24 Unknown Rx amlodipine 10 mg tablet 10 mg PO QDAY 01/19/24 Unknown History carbamazepine 200 mg tablet 200 mg PO BID 01/19/24 Unknown History carvedilol 25 mg tablet 12.5 mg PO BID 01/19/24 Unknown History isosorbide mononitrate 60 mg 60 mg PO QDAY 01/19/24 Unknown History tablet,extended release 24 hr valsartan 160 mg tablet 160 mg PO QDAY 01/19/24 Unknown History Allergy/AdvReac Type Severity Reaction Status Date / Time mayonnaise Allergy Severe Anaphylaxis Verified 01/19/24 13:33 ibuprofen Allergy Rash Verified 01/17/24 07:10 naproxen (From Naprosyn) Allergy Rash Verified 01/17/24 07:10 codeine AdvReac Vertigo Verified 01/19/24 13:33 Family History (Updated 01/19/24 @ 13:24 by Sherron Sabillon RN) Brother Cancer CAD (coronary artery disease) Diabetes Heart disease Mother Diabetes Hypertension Heart disease Father Hypertension Myocardial infarction Heart disease Son Hypertension Surgical History (Updated 01/19/24 @ 13:31 by Sherron Sabillon RN) History of stapedectomy Hx of hernia repair Hx of total knee arthroplasty (02/21/20) Hx of CABG (07/09/22) S/P left knee arthroscopy Aortic valve replaced Social History (Updated 01/19/24 @ 13:23 by Sherron Sabillon RN) Smoking Status: Light Smoker (<10/day) Tobacco: How many years used: 20 EXAM Physical Exam Const Vital Signs: 02/07/24 09:05 02/07/24 09:28 02/07/24 11:05 Temperature 97.9 F Temperature Source Oral Pulse Rate 68 44 L Respiratory Rate 16 19 H Blood Pressure 119/85 H 153/78 H Blood Pressure Mean 96 103 Pulse Ox 94 99 98 Oxygen Delivery Method Room Air Room Air 02/07/24 13:00 02/07/24 13:13 Temperature 97.8 F Temperature Source Pulse Rate 38 L 45 L Respiratory Rate 19 H 20 H Blood Pressure 138/72 H 143/72 H Blood Pressure Mean 94 95 Pulse Ox 100 100 Oxygen Delivery Method MDM MDM MDM Narrative Medical decision making narrative: HISTORY OF PRESENT ILLNESS: 74-year-old female presents with concern for syncope versus near syncope. Per EMS patient's family called because she passed out. However the patient says she never passed out. Patient states she just put her head down because she felt a little woozy. The patient further states [close REVIEW OF SYSTEMS: Pertinent positives: Syncope versus near syncope Pertinent negatives: Chest pain, shortness of breath, leg swelling PHYSICAL EXAM: Nursing triage notes reviewed, Vital signs reviewed Constitutional: please see mdm HENT: MMM Eyes: Pupils equal round and reactive to light, Extraocular muscles intact Neck: No stridor, no JVD, full neck ROM Lungs: Clear to auscultation, No wheezing or rales. No increased work of breathing, no conversational dyspnea, no accessory muscle use, no nasal flaring. No respiratory distress noted Heart: Slow rate rhythm, No rubs and No gallops, 2+ distal pulses (radial, femoral, posterior tibial) in all extremities Abdomen: Soft, there is no tenderness, rigidity, rebound or guarding, no obvious peritoneal signs, no palpable pulsatile abdominal masses, no auscultated abdominal bruit : No CVAT Extremities: No edema Neuro: No new focal neurological deficits, cranial nerves II through XII intact, 5/5 strength in all present extremities. Intact sensation to light touch in all present extremities, 2+ reflexes bilateral patella tendons. Skin: No rash or lesions noted MEDICAL DECISION MAKING: Chief Complaint: Syncope versus near syncope External records reviewed: Reviewed echocardiogram from February 2023 which showed an ejection fraction of 65% Factors affecting care: Atrial fibrillation on warfarin, hyperlipidemia, aortic valve stenosis, COPD, CAD, carotid artery stenosis Social determinants of health: none History obtained from others: EMS Consults: Cardiology (Dr. Wolfe)?discussed the patient's case, EKG, prior EKGs, elevated troponin level. Dr. Wolfe recommended discharge Holter monitor. He did not recommend admission at this time MDM Narrative: Patient was initially hemodynamically stable, afebrile and nontoxic-appearing. Exam with slow heart rate otherwise no focal cardiopulmonary maladies. The patient appeared comfortable alert with no distress. I considered the following differential diagnosis: Arrhythmia, anemia, electrolyte disturbance, coagulopathy, PE, IV, monitor was placed immediately. Pacer pads placed immediately I obtained a broad lab and imaging workup to further elucidate etiology the patient's complaints. I considered pulmonary embolism central etiology the patient had no chest pain, shortness of breath, hypoxia and had a low risk [place] for. She says she is currently on warfarin and compliant ALL IMAGES (IF OBTAINED) HAVE BEEN PERSONALLY REVIEWED AND INTERPRETED BY MYSELF. Initial EKG showed marked bradycardia with initial heart rate of 39, prolonged TX interval 286, suspicion for type II AV block, normal axis, no STEMI. This is not particularly different from prior EKG from 01/17/2024 which showed a rate of 42, TX interval 230 Warfarin subtherapeutic Repeat EKG showed sinus bradycardia rate of 58, prolonged TX interval at 236, prolonged QT interval of 472 no STEMI, no other arrhythmia, Initial troponin elevated however this is similar to prior studies, delta troponin downtrending and similar to prior studies BMP without evidence of significant electrolyte abnormalities, no anion gap, no acute kidney injury. CBC without leukocytosis, severe anemia, no thrombocytopenia. I have personally reviewed the patient's chest x-ray. Chest x-ray is unremarkable for pulmonary edema, pneumothorax, pneumonia or focal cardiopulmonary abnormality. The patient remained hemodynamically stable, afebrile and nontoxic-appearing. She is no acute distress. No events on telemetry. Discussed the case with cardiology to ascertain if police dispatcher on-call felt patient would benefit from inpatient admission. Despite elevated troponin and bradycardia. The patient is chest pain-free and at her baseline in terms of troponin and heart rate. He felt the patient was safe for discharge with a Holter monitor. Holter monitor was provided here in the emergency department. Discussed with patient and family possible admission given bradycardia, elevated troponin and recent ED visit with admission for PT OT placement. The patient and son are both alert and orient x 3 and both displayed capacity to make her medical decisions. They stated they did not want to be admitted this time or go to a facility. Discussed ED social work consultation patient's son noted he has a vp digital marketing social media and crm as an outpatient will reach out to them to arrange rehab and/or intermediate admission the next few days as his mother does not want to be admitted to the hospital on her birthday. I was able to arrange social work evaluation here for outpatient resources to facilitate possible placement or rehab admission if the patient change her mind in the future. Strict return precautions were discussed. The patient and/or family, caregivers express understanding. The patient and/or family, caregivers agrees with the plan. Shared decision making: I will have a discussion with the patient and or visitors regarding risk/benefits of further testing or admission. They will be made aware of of the risk/benefits inherent in this decision they will be given the opportunity to voice understanding. Total critical care time today provided was at least 0 minutes. This excludes separately billable procedures. Critical care time (if documented) is secondary to the patient having high probability of clinically significant/life threatening deterioration in the patient's condition which required my urgent intervention. Impression: 1. Near syncope 2. Bradycardia 3. History of CAD Dispo: Discharge home This note was generated with [employer] dictation software. It may contain incorrect words, spelling, and punctuation that were not noted in review of the chart prior to signing. Lab Data Labs: Laboratory Results - last 24 hr 02/07/24 02/07/24 09:16 11:34 WBC 7.9 RBC 3.96 L Hgb 12.6 Hct 37.4 MCV 94.4 MCH 31.8 MCHC 33.7 RDW Std Deviation 44.1 H RDW Coeff of Geena 12.8 Plt Count 200 MPV 10.2 Immature Gran % (Auto) 0.800 Neut % (Auto) 69.8 Lymph % (Auto) 20.4 [place] % (Auto) 8.0 Eos % (Auto) 0.0 Baso % (Auto) 1.0 Absolute Neuts (auto) 5.5 Absolute Lymphs (auto) 1.61 Nucleated RBC % 0 PT 17.2 H INR 1.4 Sodium 138 Potassium 3.5 Chloride 104 Carbon Dioxide 30.0 Anion Gap 5 BUN 8 Creatinine 0.68 Estim Creat Clear Calc 48.06 Est GFR (MDRD) Af Amer 109 Est GFR (MDRD) Non-Af 90 BUN/Creatinine Ratio 11.8 Glucose 164 H Calcium 8.2 L Troponin I High Sens 110 H 94 H Radiography Diagnostic Testing: Clinical Impression(s) from Imaging Studies Chest X-Ray 02/07/24 09:21 IMPRESSION: Degenerative changes, as described above. No demonstrated acute cardiopulmonary process. Electronically Signed: Juan Diego Blas MD at 10:35 EST Reading Location ID and State: [facility] / [place] , Service support , Discharge Plan Triage Chief Complaint: Syncope ED Provider: Jacob Morgan Dx/Rx/DC Orders Clinical Impression: Bradycardia Instructions: ED Bradycardia Prescriptions: No Action amlodipine 10 mg tablet 10 mg PO QDAY carvedilol 25 mg tablet 12.5 mg PO BID isosorbide mononitrate 60 mg tablet extended release 24 hr 60 mg PO QDAY carbamazepine 200 mg tablet 200 mg PO BID valsartan 160 mg tablet 160 mg PO QDAY amiodarone 200 mg tablet 200 mg PO DAILY warfarin 3 mg tablet 4.5 mg PO DAILY Patient Comments: TAKE 2 TABLETS BY MOUTH EVERY DAY; 4.5 mg TUESDAY, TUESDAY, TUESDAY (CURRENTLY 02/11/23 Rx Instructions: 4.5 mg TUESDAY, TUESDAY, TUESDAY; 3 mg Tue, Tue, , multivitamin [Daily Multi-Vitamin] Tablet 1 tab PO DAILY calcium carbonate-vitamin D3 [Calcium 500 + D (D3)] 1 tab PO DAILY aspirin 81 mg Tablet,Chewable 81 mg PO BREAKFAST Qty: 1 0RF clonidine HCl 0.2 mg Tablet 0.2 mg PO TID 30 Days Qty: 90 0RF hydralazine 50 mg Tablet 50 mg PO TID 30 Days Qty: 90 0RF Primary Care Provider: Savage Gilliam Referrals: Savage Gilliam MD [Primary Care Provider] - Activity Restrictions/Additional Instructions: Thank you for trusting us with your care today! Please return to the emergency department if your symptoms change or worsen. Please follow with your primary care physician for further outpatient evaluation and management. Print Language: Tajik Disposition Disposition: Home, Self Care Discharge Date/Time: 02/07/24 14:24
--- NOTE | 2024-02-07 09:21 | RAD_ITS ---
STUDY: X-RAY CHEST REASON FOR EXAM: Female, 74 years old. chest pain TECHNIQUE: Single AP portable view of the chest. COMPARISON: January 17, 2024 FINDINGS: 1. No consolidation or pleural effusion or pneumothorax. 2. Chronic COPD/cystic emphysematous changes/interstitial fibrosis There is normal heart size. Stable CABG clips 3. Stable mediastinum and osseous structures 4. No pneumothorax. There is no demonstrated abnormality of the visualized soft tissue structures of the upper abdomen. RAD/Chest 1 View (Portable) IMPRESSION: Degenerative changes, as described above. No demonstrated acute cardiopulmonary process. Electronically Signed: Juan Diego Blas MD at 10:35 [facility] ,
--- NOTE | 2024-02-07 09:21 | EKG12_ITS ---
Test Reason : DIZZY Blood Pressure : */* mmHG Vent. Rate : 39 BPM Atrial Rate : 39 BPM P-R Int : 286 ms QRS Dur : 100 ms QT Int : 542 ms P-R-T Axes : 39 34 94 degrees QTcB Int : 436 ms Critical Test Result: Low HR Marked sinus bradycardia with marked sinus arrhythmia with 1st degree A-V block Nonspecific ST and T wave abnormality Abnormal ECG Confirmed by ARCELIA SAVAGE, NICOLETTE ([id number]), advertising editor JONY ALVAREZ ([id number]) on 02/09/2024 6:11:04 AM Referred By: LIDIA/REGI Confirmed By: NICOLETTE PANIAGUA MD
[2024-02-07 09:28] VITALS: O2SAT 99
[2024-02-07 09:30] LABS: Absolute Lymphocyte Count 1.61 X10^3/uL (0.83-4.51); Absolute Neutrophil Count 5.5 X10^3/uL (2.0-7.7); Basophil# 0.08 X10^3/uL; Hematocrit 37.4 % (37-47); Hemoglobin 12.6 g/dL (12.0-15.0); Lymphocyte # 1.61 X10^3/ul (0.83-4.51); Lymphocyte % 20.4 % (19-41); Mean Corp Hgb Conc 33.7 g/dL (32-36); Mean Corpuscular Hgb 31.8 pg (27.0-32.0); Mean Corpuscular Volume 94.4 fL (81-99); Mean Platelet Vol. 10.2 fl (6.2-12.0); Monocyte# 0.63 X10^3/uL; NRBC Flagged by Analyzer 0 % (0-5); Neutrophil # 5.53 X10^3/uL (2.7-7.7); Neutrophil % 69.8 % (47-70); Platelet Count 200 K/mm3 (150-450); RBC Distribution Width CV 12.8 % (11.6-14.6); RBC Distribution Width SD 44.1 fl (35.1-43.9); Red Blood Count 3.96 M/mm3 (4.2-5.4); White Blood Count 7.9 K/mm3 (4.4-11.0)
[2024-02-07 09:43] LABS: International Normalized Ratio 1.4; Prothrombin Time (Protime)PT. 17.2 SECONDS (11.7-14.9)
[2024-02-07 09:53] LABS: Anion Gap 5 (5-15); BUN 8 mg/dL (7-18); BUN/Creat Ratio 11.8 RATIO (10-20); Calcium,Total 8.2 mg/dL (8.5-10.1); Chloride 104 mmol/L (98-107); Creatinine, Serum 0.68 mg/dL (0.55-1.02); EST Glomerular Filtration Rate 90 mL/min (>60); Est Glom Filt Rate - Afr Amer 109 mL/min (>60); Estimated Creatinine Clearance 48.06 ml/min; Glucose 164 mg/dL (74-106); Potassium 3.5 mmol/L (3.5-5.1); Sodium Level 138 mmol/L (136-145); Troponin-I HS (w/2H Reflex) 110 pg/mL (3.0-54.0)
[2024-02-07 11:05] VITALS: BP 153/78; PULSE 44; RESP 19; O2SAT 98
[2024-02-07 11:25] LABS: Reflex Troponin-HS? (from REC) Y
--- NOTE | 2024-02-07 12:02 | EKG12_ITS ---
Test Reason : REPEAT Blood Pressure : */* mmHG Vent. Rate : 58 BPM Atrial Rate : 58 BPM P-R Int : 236 ms QRS Dur : 92 ms QT Int : 524 ms P-R-T Axes : 76 20 88 degrees QTcB Int : 514 ms Sinus bradycardia with 1st degree A-V block Minimal voltage criteria for LVH, may be normal variant ( Ruben product ) Prolonged QT Abnormal ECG Confirmed by ARCELIA SAVAGE, NICOLETTE ([id number]), index editor JONY ALVAREZ ([id number]) on 02/09/2024 6:11:17 AM Referred By: Confirmed By: NICOLETTE PANIAGUA MD
[2024-02-07 12:12] LABS: Troponin-I HS 94 pg/mL (3.0-54.0)
[2024-02-07 13:00] VITALS: BP 138/72; PULSE 38; RESP 19; O2SAT 100
[2024-02-07 13:13] VITALS: BP 143/72; PULSE 45; RESP 20; TEMP 36.6; O2SAT 100
--- NOTE | 2024-02-07 16:04 | CM.ED ---
Social work Reason for referral: patient's son request Referral source: nursing This SW was asked by nursing to speak with patient's son, Monty, about patient. Patient's son expressed being at [facility] ED often over the last month with patient. Patient's son stated not wanting to do anything today, 02/06, on patient's birthday, but patient's son expressed being frustrated and overwhelmed by the level of care that patient was requiring. Patient's doctor has reportedly expressed patient is unsafe to live at home by herself, so patient's sister has moved in with patient temporarily. Patient's son reports that patient's sister has had enough and is planning to move out. Patient's son expressed the safety issues present for patient at home, including multiple fall risks and not caring for patient's own hygiene. Patient's son stated having to force patient over the phone today to take an ambulance to the ED because patient was being stubborn. Patient's son stated again a desire to not do anything today with it being patient's birthday. Patient's son stated patient lies often which complicates the situation. Patient's son stated having to go to doctor's appointments with patient now to make sure that patient is being honest about patient's health struggles and physical abilities. Much active listening provided by this SW. This SW spoke with Dr. Morgan regarding safety risks at patient's home and this SW consulted [facility] about the situation. Patient was unwilling to be placed anywhere despite knowing risks. Patient's son stated being fine with this decision from patient, but patient's son stated he would be having a heart to heart with patient when they got back home today. Patient's son received resources of: [facility] referral for [facility] care assessment, [facility] brochure, and advance care planning information. Patient's son stated patient could not afford private aides at home and patient probably wouldn't comply anyway. Patient's son asked for his number to be placed on the [facility] referral; this SW stated having to put patient's number, but this SW stated the ability to add patient's son number with request to call if patient denied services. This SW provided empathic support when necessary and patient's son denied further needs at this time. Patient's son provided a cell phone number for patient ([phone]). This was entered into [employer]. [facility] referral made. Malou Sinha, TEST PULLER, SECURITIES TRADER
--- NOTE | 2024-02-13 09:22 | CM.ED ---
Social work Email received from Cee Godfrey with [facility] stating the referral was closed after several attempts of trying to reach the patient. Malou Sinha, CAR LOADER, BUHR DRESSER
== END 2024-02-07 14:24 | disposition home or self-care (01) ==
PROVIDERS: Emergency Provider Emergency Medicine; PCP Family Medicine; Visit Provider Emergency Medicine
DX: R55 Syncope and collapse (principal); J44.9 Chronic obstructive pulmonary disease, unspecified; I48.91 Unspecified atrial fibrillation; E11.9 Type 2 diabetes mellitus without complications; R00.1 Bradycardia, unspecified; I25.10 Atherosclerotic heart disease of native coronary artery without angina pectoris; E78.5 Hyperlipidemia, unspecified; I10 Essential (primary) hypertension; Z86.73 Personal history of transient ischemic attack (TIA), and cerebral infarction without residual deficits; Z95.2 Presence of prosthetic heart valve; I25.2 Old myocardial infarction; Z79.899 Other long term (current) drug therapy; Z79.01 Long term (current) use of 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; Z96.659 Presence of unspecified artificial knee joint; Z95.1 Presence of aortocoronary bypass graft; F17.200 Nicotine dependence, unspecified, uncomplicated
CPT/HCPCS: 71045; 80048; 84484; 85025; 85610; 93005; 99285; A4216

== ENCOUNTER → 2024-02-07 | Outpatient (CLI) | payer MEDICARE, SELFPAY | END | disposition home or self-care (01) | LOC: PSN 13:05 | PROVIDERS: PCP Family Medicine; Visit Provider Emergency Medicine | DX: R55 Syncope and collapse (principal) | CPT/HCPCS: 93225; 93226 ==

== ENCOUNTER → 2024-04-05 | Outpatient (CLI) | payer MEDICARE, SELFPAY ==
--- NOTE | 2024-04-05 16:48 | CT_ITS ---
PROCEDURE: LOW DOSE CT LUNG SCREENING REASON FOR EXAM: Current smoker. Patient has smoked 2 packs per day for 45 years. TECHNIQUE: Low Dose CT Lung Screening without contrast COMPARISON: None. FINDINGS: PULMONARY NODULES: (Only nodules >6mm are reported) Nodules described below are on series 1 unless otherwise specified. Pulmonary Nodules: No concerning pulmonary nodules. Hardware:None Lymph Nodes:No mediastinal hilar or axillary lymphadenopathy. Heart and Vasculature:Normal heart size. No pericardial effusion.Atherosclerotic plaque formation of the aortic arch and descending thoracic aorta. Coronary Artery Calcifications: Present. Prior aortic valve replacement. Lungs and Airways: Mild emphysematous changes are present. Mild scarring in the lingula segment of the left upper lobe as well as at the right lung base. Pleura:No pleural effusion. No pneumothorax. Upper Abdomen:Visualized portions of the upper abdominal viscera are unremarkable. Bones:Degenerative changes of the thoracic spine. CT/Low Dose CT Lung Screening IMPRESSION: 1. BASED ON THE ACR LUNG RADS FOR THE MOST SUSPICIOUS NODULE (IF ANY) DESCRIBE D IN THIS REPORT, THE OVERALL LUNG RADS SCORE IS 2.2 - BENIGN (BASED ON IMAGING FEATURES OR INDOLENT BEHAVIOR). RECOMMEND 12-MON TH SCREENING LDCT.. 2. SMOKING CESSATION COUNSELING IS RECOMMENDED IF THE PATIENT IS STILL SMOKING . 3. OTHER SIGNIFICANT FINDINGSNone. One or more dose reduction techniques were used (e.g., Automated exposure contr ol, adjustment of the mA and/or kV according to patient size, use of iterative reconstruction technique). The following information is provided for reference:Lung-RADS 2021 Assessment C ategories. Additional information involving Lung-RADS is available at www.acr.org. 0-INCOMPLETE 1-NEGATIVE:No nodules or definitely benign nodules. Complete, central, popcorn , or centric ring calcifications OR fat containing 2-BENIGN APPEARANCE (based on imaging features or indolent behavior). Juxtaple ural nodule: < 10mm AND solid; smooth margins; oval, entiform, or triangular shape Solid nodule: <6mm at baseline or new< 4mm Part solid Nodule: < 6mm total mean diameter at baseline Nonsolid nodule:(GGN) < 30mm OR >=30mm stable or slowly growing Airway nodule, subsegmental at baseline, new, or stable Category 3 nodule stabl e or decreased in size at 6-month follow-up CT or Category 3 or 4A nodules that resolve on follow-up OR category 4B findings prov en to be benign following diagnotic work up. 3 - Probably Benign (Based on imaging features or behavior) Solid Nodule: >= 6 to <8mm at baseline OR new 4 to <6mm Part-solid nodule: >= 6mm toal mean diam. with solid component <6mm at baseline OR new < 6mm total mean diam. Non-solid nodule: GGN >= 30mm at baseline or new Atypical pulmonary cyst: Growing cystic component (mean diam.) of thick-walled cyst Category 4A nodule stable or decreased in size at 3-month follow-up CT (excl.ai rway). 4A - Suspicious Solid nodule: >=8 to < 15mm at baseline OR growing < 8mm OR new 6 to < 8mm Part solid nodule: >= 6mm total mean diam. w/ solid component >=6mm to < 8mm at baseline OR new or growing < 4mm solid component Airway nodule, segmental or more proximal at baseline or new Atypical pulmonary cyst: Thick-walled OR multilocular at baseline OR becomes mu ltilocular 4B - Very Suspicious Airway nodule, segmental or more proximal, and stable or growing Solid nodule: >= 15mm at baseline OR new or growing >= 8mm Part solid nodule: Solid component >= 8mm OR new or growing >= 4mm solid compon ent Atypical pulmonary cyst: Thick-walled with growing wall thickness/nodularity OR Growing multilocular (mean diam.) OR Multilocular with increased loculation or new/increased opacity Slow-growing solid or part solid nodule w/ growth over multiple screening exams 4X - Very Suspicious Category 3 or 4 nodules with additional features that increase the suspicion fo r lung cancer. S - Clinically Significant or potentially significant findings (non-lung cancer ) 3. OTHER SIGNIFICANT FINDINGSNone. One or more dose reduction techniques were used (e.g., Automated exposure contr ol, adjustment of the mA and/or kV according to patient size, use of iterative reconstruction technique). The following information is provided for reference:Lung-RADS 2021 Assessment C ategories. Additional information involving Lung-RADS is available at www.acr.org. 0-INCOMPLETE 1-NEGATIVE:No nodules or definitely benign nodules. Complete, central, popcorn , or centric ring calcifications OR fat containing 2-BENIGN APPEARANCE (based on imaging features or indolent behavior). Juxtaple ural nodule: < 10mm AND solid; smooth margins; oval, entiform, or triangular shape Solid nodule: <6mm at baseline or new< 4mm Part solid Nodule: < 6mm total mean diameter at baseline Nonsolid nodule:(GGN) < 30mm OR >=30mm stable or slowly growing Airway nodule, subsegmental at baseline, new, or stable Category 3 nodule stabl e or decreased in size at 6-month follow-up CT or Category 3 or 4A nodules that resolve on follow-up OR category 4B findings prov en to be benign following diagnotic work up. 3 - Probably Benign (Based on imaging features or behavior) Solid Nodule: >= 6 to <8mm at baseline OR new 4 to <6mm Part-solid nodule: >= 6mm toal mean diam. with solid component <6mm at baseline OR new < 6mm total mean diam. Non-solid nodule: GGN >= 30mm at baseline or new Atypical pulmonary cyst: Growing cystic component (mean diam.) of thick-walled cyst Category 4A nodule stable or decreased in size at 3-month follow-up CT (excl.ai rway). 4A - Suspicious Solid nodule: >=8 to < 15mm at baseline OR growing < 8mm OR new 6 to < 8mm Part solid nodule: >= 6mm total mean diam. w/ solid component >=6mm to < 8mm at baseline OR new or growing < 4mm solid component Airway nodule, segmental or more proximal at baseline or new Atypical pulmonary cyst: Thick-walled OR multilocular at baseline OR becomes mu ltilocular 4B - Very Suspicious Airway nodule, segmental or more proximal, and stable or growing Solid nodule: >= 15mm at baseline OR new or growing >= 8mm Part solid nodule: Solid component >= 8mm OR new or growing >= 4mm solid compon ent Atypical pulmonary cyst: Thick-walled with growing wall thickness/nodularity OR Growing multilocular (mean diam.) OR Multilocular with increased loculation or new/increased opacity Slow-growing solid or part solid nodule w/ growth over multiple screening exams 4X - Very Suspicious Category 3 or 4 nodules with additional features that increase the suspicion fo r lung cancer. S - Clinically Significant or potentially significant findings (non-lung cancer ) Reading Location: [facility]
== END | disposition home or self-care (01) ==
LOC: CT 16:47
PROVIDERS: PCP Family Medicine
DX: Z00.00 Encounter for general adult medical examination without abnormal findings (principal); F17.210 Nicotine dependence, cigarettes, uncomplicated
CPT/HCPCS: 71271

== ENCOUNTER → 2024-10-18 | Outpatient (CLI) | payer MEDICARE, SELFPAY ==
[2024-10-18 12:50] LABS: Creatinine, Urine (random) 71.60 mg/dL (28.00-217.00); Microalbumin,Random Urine 48.3 mg/L (<20 mg/L)
[2024-10-18 12:51] LABS: Anion Gap 11 (5-15); BUN 9 mg/dL (4-19); BUN/Creat Ratio 16.1 RATIO (10-20); Calcium,Total 8.9 mg/dL (7.6-11.0); Carbon Dioxide 26.2 mmol/L (21.0-32.0); Chloride 100 mmol/L (98-108); Glucose 126 mg/dL (70-99); Potassium 4.0 mmol/L (3.3-5.1)
== END | disposition home or self-care (01) ==
LOC: MFPLAB 11:00
PROVIDERS: PCP Family Medicine; Visit Provider Family Medicine
DX: E11.9 Type 2 diabetes mellitus without complications (principal)
CPT/HCPCS: 36415; 80048; 82043; 82570

== ENCOUNTER 2024-10-22 21:12 | Inpatient (IN) | payer MEDICARE, SELFPAY ==
[2024-10-22 21:15] VITALS: BP 145/100; PULSE 82; RESP 18; TEMP 36.6; O2SAT 99
[2024-10-22 21:20] VITALS: BMI 22.8
--- NOTE | 2024-10-22 21:30 | ED.RN ---
Pt struggled to lift the left leg as high as the right leg, however the patient reports it is because it feels weak, not painful. The patient states she has been having issues with this knee for the past few months. And the patient reports a previous stroke 20 years ago that affected her left side but it returned to baseline afterwards. The patient does state, it feels cold from my knee to my foot and I have been trying to follow up with Dr. Rossi for my knee replacement a few years ago.
--- NOTE | 2024-10-22 21:33 | EKG12_ITS ---
Test Reason : DYSRHYTHMIA Blood Pressure : */* mmHG Vent. Rate : 66 BPM Atrial Rate : * BPM P-R Int : * ms QRS Dur : 92 ms QT Int : 416 ms P-R-T Axes : * 8 91 degrees QTcB Int : 436 ms Atrial fibrillation Septal infarct , age undetermined Abnormal ECG Confirmed by Saul Jernigan ([id number]), assistant editor ROSANNE SAMAYOA ([id number]) on 10/23/2024 12:00:25 PM Referred By: Confirmed By: Saul Jernigan
--- NOTE | 2024-10-22 21:33 | EDS_ITS ---
HPI History of Present Illness Chief Complaint: Weakness Informant: patient Narrative Narrative: 74-year-old female states she is here to have her left lower extremity weakness evaluated. She states it has been like this for several months, and she feels that the issue is in her left knee which gave her some issues walking at [facility] where she was with her son, and she states that her son wanted her to come and be evaluated. She states today is no different than any other day with regards to the symptoms. She states her left knee is painful and stiff, and she feels like her weakness is related to that. She denies weakness in her arm or her face or trouble speaking or any other neurologic symptoms. She has not fallen or injured anything recently. She is due to follow-up with Dr. Rossi for her knee. She states for the last couple months she has also felt like it is cold from her knee down to her foot. She denies claudication symptoms or color changes. [facility] Medical History (Updated 10/22/24 @ 23:[address] Ron Sesay MD) TIA (transient ischemic attack) Thrombocytopenia SOB (shortness of breath) Vasovagal near syncope Bradycardia Renal artery stenosis Aortic valve stenosis History of transcatheter aortic valve replacement (TAVR) (07/09/22) History of cardioversion (04/14/23) Perforated tympanic membrane Chronic headaches Generalized weakness Multiple falls Carotid artery stenosis Orthostatic hypotension Hyperlipidemia Epilepsy Tobacco abuse Acute stroke due to ischemia pen[facility] (current) use of 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 Atrial fibrillation Rheumatic fever Mitral prolapse Right renal artery stenosis 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 Anemia Depression Rheumatoid arthritis GERD (gastroesophageal reflux disease) COPD (chronic obstructive pulmonary disease) Deafness in left ear Myocardial infarct Contusion of face Unsteady gait Abrasion of left ring finger Diabetes HTN (hypertension) Home Medications ?Medication ?Instructions ?Recorded ?Last Taken ?Type multivitamin (Daily Multi-Vitamin 1 tab PO DAILY 02/11 Unknown History tablet) aspirin 81 mg chewable tablet 81 mg PO BREAKFAST #1 TA B 02/13/23 Unknown Rx amlodipine 10 mg tablet 10 mg PO QDAY 01/19/24 Unkno wn History atorvastatin 40 mg tablet 40 mg PO QHS 02/15/24 Unknow n History carbamazepine 200 mg tablet 400 mg PO Q12H 02/15/24 Un known History valsartan 160 mg tablet 160 mg PO BID #180 tabs 04/03 Unknown Rx carvedilol 25 mg tablet 25 mg PO BID #180 tabs 06/13 Unknown Rx hydralazine 100 mg tablet 100 mg PO TID #270 TABLETS 0 06/14/24 Unknown Rx warfarin 4 mg tablet 4 mg PO DAILY 10/22/24 Unkno wn History Allergy/AdvReac Type Severity Reaction Status Date / Time mayonnaise Allergy Severe Anaphylaxis Verified 10/22/24 21:15 ibuprofen Allergy Rash Verified 10/22/24 21:15 naproxen (From Naprosyn) Allergy Rash Verified 10/22/24 21:15 codeine AdvReac Vertigo Verified 10/22/24 21:15 Family History Brother Cancer CAD (coronary artery disease) Diabetes Heart disease Mother Diabetes Hypertension Heart disease Father Hypertension Myocardial infarction Heart disease Son Hypertension Surgical History History of stapedectomy Hx of hernia repair Hx of total knee arthroplasty (02/21/20) Hx of CABG (07/09/22) S/P left knee arthroscopy Aortic valve replaced Social History Smoking Status: Light Smoker (<10/day) Tobacco: How many years used: 20 ROS ROS ED Constitutional Constitutional ED: Denies chills, fever(s) or weakness Eyes Eyes: Denies change in vision or diplopia ENT ENT ED: Denies rhinorrhea or sore throat Cardiovascular Cardiovascular: Denies chest pain, palpitations or racing heartbeat Respiratory/Chest Respiratory/Chest: Denies cough or dyspnea Gastrointestinal Gastrointestinal: Denies abdominal pain, diarrhea, nausea or vomiting Genitourinary Genitourinary ED: Denies dysuria or hematuria Musculoskeletal Musculoskeletal: Reports as per HPI, extremity pain and joint stiffness; Denies back pain or neck pain Integumentary Denies abscess or rash Neurologic Neurologic: Reports weakness; Denies headache(s) or paresthesias Psychiatric Psychiatric: Denies anxiety or suicidal thoughts EXAM Physical Exam Const Vital Signs: 10/22/24 21:15 10/22/24 21:26 10/22/24 21:46 Temperature 98 F Temperature Source Temporal Pulse Rate 82 74 Respiratory Rate 18 18 Respiratory Effort Normal Non-Labored Respiratory Pattern Normal Blood Pressure 145/100 H 139/94 H Blood Pressure Mean 115 109 Pulse Ox 99 99 Oxygen Delivery Method Room Air Room Air 10/22/24 23:00 Temperature Temperature Source Pulse Rate 86 Respiratory Rate 18 Respiratory Effort Respiratory Pattern Blood Pressure 167/91 H Blood Pressure Mean 116 Pulse Ox 99 Oxygen Delivery Method Room Air Positive well nourished and well developed General Appearance ED: well developed and NAD HEENT Reports moist mucous membranes normocephalic and atraumatic Eyes PERRL and EOMs intact bilaterally Neck full ROM and supple Resp normal respiratory effort and clear to auscultation bilaterally Cardio regular rate, regular rhythm and no murmurs Peripheral Pulses: dorsalis pedis pulses present bilateral 2+ GI non-tender and non-distended Auscultation: normoactive bowel sounds Palpation: soft Back/Spine no CVA tenderness General Back: other FROM Extremity normal to inspection Extremity Narrative: Limited range of motion of the left knee due to pain and stiffness according to the patient. No erythema, warmth, effusion. Well-healed anterior TKA surgical incision. General Extremety ED: Negative for edema, pulses abnormal or tenderness General Extremity: Negative for edema or pulses abnormal Neuro oriented x3, CN's II-XII intact bilaterally and no sensory deficits noted Neuro Narrative: Little bit of drift due to weakness in her left lower extremity proximally even with knee in extension, not limited by pain, as well as mild sensory asymmetry between the knee and the ankle. No other deficits. Normal speech no aphasia or dysarthria, no dysmetria Sensorium / Orientation: awake and alert Motor Exam: strength abnormal flexion (left thigh 4+) Psych mental status grossly normal Skin no rashes or lesions noted and no wounds NIHSS NIHSS Initial: 1a Level of Consciousness: 0 1b LOC Questions (Score 2 if aphasic/stupor): 0 1c LOC Commands (Only score 1st attempt): 0 2 Best Gaze (If aphasic, use reflexive mvmts.): 0 3 Visual: 0 4 Facial Palsy: 0 5 Motor Arm Right (UN = amputation/fusion): 0 5 Motor Arm Left: 0 6 Motor Leg Right: 0 6 Motor Leg Left: 1 7 Limb ataxia (Only + if out of proportion): 0 8 Sensory (Aphasia/stupor=0 or 1, coma=2): 1 9 Best Language: 0 10 Dysarthria (mute, coma=2, intubated=UN): 0 11 Extinction and Inattention (only scored if +): 0 Total Score: 2 MDM MDM MDM Narrative Medical decision making narrative: My suspicion is that this patient has a peripheral neuropathy. When asked her about history of stroke, she states she did have a stroke 25 years ago that affected her left side and made it weak. However she states her left lower extremity came up to normal before getting weak several months ago. I advised her that I could do a CT and some other tests here to evaluate for a stroke recently. She has a history of A-fib and she is anticoagulated for that, EKG shows that she is indeed in A-fib right now it is rate controlled. She is on warfarin; she does not know why she is not on a NOAC. She states her INR was recently tested and was good, but she can't remember what the level was. I sent another. Plan CT was performed since she does not have symptoms that are acute, I reviewed the images as well as the result which I agree with. It is consistent with an acute ischemic stroke in the right temporal lobe. Unclear if this could be causing her left lower extremity weakness which is the only neurologic abnormality I see on exam. In comparison with the scan she had in January of last year, this is new. That was the most recent CT that she has had here. She confirms when I discussed with her again that she has been having this left leg weakness and partial sensory loss from the knee down for the past 2 or 3 months. She states it was around the time that she had the knee surgery. She does not know exactly. My concern is that the infarct is not necessarily in an area that would explain her left lower extremity weakness. I discussed with [facility] stroke neurology. From what the neurologist told me, it sounded like he advised carotid testing possibly an MRI, but if she truly has had symptoms for 3 months obviously that does not need to be done emergently. Her INR came back subtherapeutic at 1.2. Almost 2 hours into the patient's length of stay, after being in and out of the room multiple times, I was able to speak with the patient's son for the first time. It was at this point that he stated the reason that she was brought here which was information not available before I spoke with him, was that when they were at the [employer] prior to coming, the patient was acting unusual and somewhat disoriented, and then she continued to look and lean to the left as if she was unable to recognize her right side, and the right side of her face looked droopy/weak. At that point they were on the way out past the bonding agent who told him that he needed to get her to the hospital immediately. He agrees that all of that is resolved right now. Given all of that and the fact she is subtherapeutic on her INR, I think admitting her for further testing and m onitoring is indicated. She is given a dose of Lovenox. Discussed with hospitalist. History & Record Review Additional record(s) reviewed:: Prior outpatient record (Cardiology visit 02/15/2024 confirming bioprosthetic aortic valve replacement) Lab Data Attestation: I reviewed the patient's lab results. Labs: Laboratory Results - last 24 hr 10/22/24 21:45 WBC 5.7 RBC 4.20 Hgb 13.5 Hct 39.7 MCV 94.5 MCH 32.1 H MCHC 34.0 RDW Std Deviation 43.9 RDW Coeff of Geena 12.7 Plt Count 177 MPV 9.9 Immature Gran % (Auto) 0.500 Neut % (Auto) 60.2 Lymph % (Auto) 28.7 [place] % (Auto) 9.3 Eos % (Auto) 0.3 Baso % (Auto) 1.0 Absolute Neuts (auto) 3.4 Absolute Lymphs (auto) 1.64 Nucleated RBC % 0 PT 15.4 H INR 1.2 Sodium 138 Potassium 4.2 Chloride 104 Carbon Dioxide 23.9 Anion Gap 10 BUN 11 Creatinine 0.57 L Estim Creat Clear Calc 45.85 L Est GFR (MDRD) Non-Af 95 BUN/Creatinine Ratio 19.4 Glucose 131 H Calcium 9.1 Radiography Diagnostic Testing: Clinical Impression(s) from Imaging Studies Brain CT 10/22/24 21:50 IMPRESSION: 1. Acute infarct involving the anterior right temporal lobe. 2. Advanced chronic small-vessel ischemic changes with numerous scattered foci of old lacunar infarcts in the bilateral cerebral and cerebellar hemispheres. 3. No acute hemorrhage, extra-axial collection, or mass-effect. Reading Location: [facility] Knee X-Ray 10/22/24 21:50 IMPRESSION: Intact left knee arthroplasty. Reading Location: [id number] 4 view x-ray series of the left knee on my interpretation shows intact hardware and is otherwise unremarkable. Rhythm Strip Rhythm Strip: A-fib Rate: 85 Ectopy: None EKG Initial EKG: Attestation: I personally reviewed and interpreted this EKG as follows: Interpretation: No Acute Injury Pattern and Atrial Fibrillation Management Discussion w/another healthcare provider: Hospitalist and [employer] Room Operator (Stroke neurology) Discharge Plan Dx/Rx/DC Orders Clinical Impression: Brain TIA, Acute ischemic stroke, Left leg weakness, Chronic pain of left knee, Subtherapeutic anticoagulation, Atrial fibrillation, History of transcatheter aortic valve replacement (TAVR) Disposition Disposition: Acute Care Hospital [facility] Stroke Documentation Questions Stroke Team Activated: No (due to timing) Was Patient considered for Endovascular Intervention?: No-CTA not indicated IV Thrombolytic Administered: No (due to timing)
[2024-10-22 21:46] VITALS: BP 139/94; PULSE 74; RESP 18; O2SAT 99
--- NOTE | 2024-10-22 21:50 | RAD_ITS ---
PROCEDURE: KNEE 4 OR MORE VIEWS 10/22/2024 REASON FOR EXAM: PAIN, STIFFNESS TECHNIQUE: Procedure Code: RADKN Modality: DX Procedure: KNEE 4 OR MORE VIEWS Laterality: FINDINGS: Left knee arthroplasty. No knee joint effusion. No evidence of acute complication. RAD/Knee 4 or More Views IMPRESSION: Intact left knee arthroplasty. Reading Location: [id number]
--- NOTE | 2024-10-22 21:50 | CT_ITS ---
PROCEDURE: CT BRAIN/HEAD WITHOUT CONTRAST 10/22/2024 REASON FOR EXAM: LLE WEAKNESS TECHNIQUE: Procedure Code: CTBR Modality: CT Procedure: BRAIN/HEAD WITHOUT CONTRAST Coronal and Sagittal reconstruction series were provided. One or more dose reduction techniques were used (e.g., Automated exposure control, adjustment of the mA and/or kV according to patient size, use of iterative reconstruction technique. RADIATION DOSE SUMMARY: CTDlvol: 44.99 mGy DLP: 779.24 mGycm COMPARISON: 01/17/2024 FINDINGS: Parenchymal hypoattenuation in the anterior right temporal lobe consistent with acute infarct. Advanced chronic small-vessel ischemic-gliotic changes elsewhere throughout the supratentorial white matter and bilateral cerebellar hemispheres, with numerous scattered chronic lacunar infarcts. No acute intracranial hemorrhage, extra-axial collection, or mass-effect. Moderate generalized brain parenchymal volume loss. Atherosclerotic vascular calcifications. Absent [place] ocular lenses. Intact skull base and calvarium. Well-aerated imaged paranasal sinuses and mastoid air cells. CT/Brain/Head without Contrast IMPRESSION: 1. Acute infarct involving the anterior right temporal lobe. 2. Advanced chronic small-vessel ischemic changes with numerous scattered foci of old lacunar infarcts in the bilateral cerebral and cerebellar hemispheres. 3. No acute hemorrhage, extra-axial collection, or mass-effect. Reading Location: [facility]
[2024-10-22 22:02] LABS: Hematocrit 39.7 % (37-47); Hemoglobin 13.5 g/dL (12.0-15.0); Immature Granulocytes Count 0.030 X10^3/uL (0.0-0.0); Mean Corp Hgb Conc 34.0 g/dL (32-36); Mean Corpuscular Volume 94.5 fL (81-99); Mean Platelet Vol. 9.9 fl (6.2-12.0); NRBC Flagged by Analyzer 0 % (0-5); Platelet Count 177 K/mm3 (150-450); RBC Distribution Width CV 12.7 % (11.6-14.6); RBC Distribution Width SD 43.9 fl (35.1-43.9); Red Blood Count 4.20 M/mm3 (4.2-5.4); White Blood Count 5.7 K/mm3 (4.4-11.0)
[2024-10-22 22:37] LABS: Anion Gap 10 (5-15); BUN 11 mg/dL (4-19); BUN/Creat Ratio 19.4 RATIO (10-20); Calcium,Total 9.1 mg/dL (7.6-11.0); Carbon Dioxide 23.9 mmol/L (21.0-32.0); Chloride 104 mmol/L (98-108); Estimated Creatinine Clearance 45.85 ml/min (50-250); Glucose 131 mg/dL (70-99); Potassium 4.2 mmol/L (3.3-5.1)
[2024-10-22 23:00] VITALS: BP 167/91; PULSE 86; RESP 18; O2SAT 99
[2024-10-22 23:06] LABS: Prothrombin Time (Protime)PT. 15.4 SECONDS (11.7-14.9)
[2024-10-23] VITALS (11 sets, daily range): BP systolic 147–177; BP diastolic 96–120; PULSE 52–98; RESP 16–18; TEMP 36.2–37; O2SAT 95–98; BMI 22.1
--- NOTE | 2024-10-23 00:02 | HP.PCM_ITS ---
[facility] - [facility] Date of Admission: 10/23/24 Date of Service: 10/23/24 Chief Complaint: Left leg weakness [facility] Narrative MARK MARTIN, is a 74 F who presents to the emergency room with chief complaint of left leg weakness. Patient was brought in by her son this evening to be evaluated after they were shopping at a [employer] and she exhibited left leg weakness. According to the patient she has had this left leg weakness for the past 3 months and she has status post left knee arthroplasty as well. Further history was obtained by the ER physician when he was speaking with her son who says she had an episode of dizziness in the store and some facial drooping(laterality was not known) but that did not last very long. It is unclear when her last known well was since she has had this left leg weakness for the past 3 months. Patient does have significant past medical history of stroke 25 years ago approximately with no significant residual neurologic deficits. She also has a history of aortic valve replacement with bioprosthetic valve. Patient does continue to smoke and is on warfarin for A-fib. Patient is feeling better since arrival to the emergency room and has no current new neurologic deficits at this time. Laboratory studies reveal white blood cell count of 5.7, hemoglobin 13.5, hematocrit 39.7, platelets 177, INR 1.2, sodium 138, potassium 4.2, chloride 104, bicarb 23.9, BUN 11, creatinine 0.57, glucose 131, x-ray knee shows intact left knee arthroplasty, brain CT shows 1. Acute infarct right anterior temporal lobe, #2 advanced small vessel ischemic changes with scattered foci of old lacunar infarcts, #3 no acute hemorrhage or mass effect. Despite not having new neurologic deficits at present time and having positive findings on CT scan patient will be admitted to the progressive care unit and worked up further for stroke. Patient does wish to be full code at this time. [facility] Medical History (Updated 10/22/24 @ 23:[address] 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 (current) use of 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 Atrial fibrillation Rheumatic fever Mitral prolapse Right renal artery stenosis 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 Anemia Depression Rheumatoid arthritis GERD (gastroesophageal reflux disease) COPD (chronic obstructive pulmonary disease) Deafness in left ear Myocardial infarct Contusion of face Unsteady gait Abrasion of left ring finger Diabetes HTN (hypertension) Home Medications ?Medication ?Instructions ?Recorded ?Last Taken ?Type multivitamin (Daily Multi-Vitamin 1 tab PO DAILY 02/11 Unknown History tablet) aspirin 81 mg chewable tablet 81 mg PO BREAKFAST #1 TA B 02/13/23 Unknown Rx amlodipine 10 mg tablet 10 mg PO QDAY 01/19/24 Unkno wn History atorvastatin 40 mg tablet 40 mg PO QHS 02/15/24 Unknow n History carbamazepine 200 mg tablet 400 mg PO Q12H 02/15/24 Un known History valsartan 160 mg tablet 160 mg PO BID #180 tabs 04/03 Unknown Rx carvedilol 25 mg tablet 25 mg PO BID #180 tabs 06/13 Unknown Rx hydralazine 100 mg tablet 100 mg PO TID #270 TABLETS 0 06/14/24 Unknown Rx warfarin 4 mg tablet 4 mg PO DAILY 10/22/24 Unkno wn History Allergy/AdvReac Type Severity Reaction Status Date / Time [facility] Allergy Severe Anaphylaxis Verified 10/22/24 21:15 ibuprofen Allergy Rash Verified 10/22/24 21:15 naproxen (From Naprosyn) Allergy Rash Verified 10/22/24 21:15 codeine AdvReac Vertigo Verified 10/22/24 21:15 Family History Brother Cancer CAD (coronary artery disease) Diabetes Heart disease Mother Diabetes Hypertension Heart disease Father Hypertension Myocardial infarction Heart disease Son Hypertension Surgical History History of stapedectomy Hx of hernia repair Hx of total knee arthroplasty (02/21/20) Hx of CABG (07/09/22) S/P left knee arthroscopy Aortic valve replaced Social History Smoking Status: Light Smoker (<10/day) Tobacco: How many years used: 20 ROS Constitutional Constitutional: Denies chills or fever(s) Eyes Eyes: Denies blurry vision or change in vision ENT HEENT: Denies abnormal hearing or dysphagia Cardiovascular Cardiovascular: Denies chest pain or syncope Respiratory/Chest Respiratory/Chest: Denies cough or shortness of breath at rest Gastrointestinal Gastrointestinal: Denies abdominal pain, diarrhea, melena, nausea or vomiting Genitourinary Genitourinary: Denies dysuria Musculoskeletal Musculoskeletal: Reports joint stiffness and muscle weakness; Denies back pain or extremity pain Integumentary Integumentary: Denies dry skin Neurologic Neurologic: Reports dizziness and focal weakness; Denies abnormal speech or confusion Psychiatric Psychiatric: Denies anxiety Vital Signs Vital Signs Vital Signs: 10/22/24 21:15 10/22/24 21:26 10/22/24 21:46 Temperature 98 F Temperature Source Temporal Pulse Rate 82 74 Respiratory Rate 18 18 Respiratory Effort Normal Non-Labored Respiratory Pattern Normal Blood Pressure 145/100 H 139/94 H Blood Pressure Mean 115 109 Pulse Ox 99 99 Oxygen Delivery Method Room Air Room Air 10/22/24 23:00 Temperature Temperature Source Pulse Rate 86 Respiratory Rate 18 Respiratory Effort Respiratory Pattern Blood Pressure 167/91 H Blood Pressure Mean 116 Pulse Ox 99 Oxygen Delivery Method Room Air Weight Weight: 121 lb 0.54 oz Body Mass Index (BMI) 22.8 Physical Exam Const alert, oriented x3, no apparent distress and well nourished General Appearance: cooperative HEENT normocephalic and head/scalp atraumatic Eyes PERRL and EOMs intact bilaterally Neck no lymphadenopathy Lymph Lymphatic: no lymphadenopathy noted Resp normal respiratory effort, normal air movement and clear to auscultation bilaterally Cardio regular rate, S1 normal heart sound and S2 normal heart sound Rhythm: abnormal rhythm irregularly irregular Heart Sounds: murmur systolic GI normal to inspection, nondistended, normoactive bowel sounds Extremity normal capillary refill and no clubbing, cyanosis or edema Skin General Skin Exam: no breakdown and turgor normal Neuro CN's II-XII intact bilaterally, no focal motor deficits and no sensory deficits noted Neuro Narrative: Slight weakness in left leg as compared to right Motor Exam: strength 5/5 throughout Psych thought process normal, cooperative and affect normal Results Lab / Micro Data 10/22/24 21:45 10/22/24 21:45 Labs: Laboratory Results - last 24 hr 10/22/24 21:45: WBC 5.7, RBC 4.20, Hgb 13.5, Hct 39.7, MCV 94.5, MCH 32.1 H, MCHC 34.0, RDW Std Deviation 43.9, RDW Coeff of [place] 12.7, Plt Count 177, MPV 9.9, Immature Gran % (Auto) 0.500, Neut % (Auto) 60.2, Lymph % (Auto) 28.7, [place] % (Auto) 9.3, Eos % (Auto) 0.3, Baso % (Auto) 1.0, Absolute Neuts (auto) 3.4, Absolute Lymphs (auto) 1.64, Nucleated RBC % 0, PT 15.4 H, INR 1.2, Sodium 138, Potassium 4.2, Chloride 104, Carbon Dioxide 23.9, Anion Gap 10, BUN 11, C reatinine 0.57 L, Estim Creat Clear Calc 45.85 L, Est GFR (MDRD) Non-Af 95, BUN/Creatinine Ratio 19.4, Glucose 131 H, Calcium 9.1 Rhythm Strip Rhythm Strip: A-fib Rate: 85 Ectopy: None Imaging Radiology Impression Brain CT 10/22/24 21:50 IMPRESSION: 1. Acute infarct involving the anterior right temporal lobe. 2. Advanced chronic small-vessel ischemic changes with numerous scattered foci of old lacunar infarcts in the bilateral cerebral and cerebellar hemispheres. 3. No acute hemorrhage, extra-axial collection, or mass-effect. Reading Location: [facility] Knee X-Ray 10/22/24 21:50 IMPRESSION: Intact left knee arthroplasty. Reading Location: [id number] Assessment & Plan Assessment/Plan (1) Subtherapeutic anticoagulation: (2) Chronic pain of left knee: (3) Left leg weakness: (4) Acute ischemic stroke: (5) Brain TIA: (6) Hx of CABG: (7) History of transcatheter aortic valve replacement (TAVR): (8) Hyperlipidemia: (9) Atrial fibrillation: (10) Depression: (11) GERD (gastroesophageal reflux disease): (12) COPD (chronic obstructive pulmonary disease): PLAN: Plan 1 acute infarct right anterior lobe by CT scan?admit patient to progressive care unit, initiate neurologic evaluations every 4 hours and order MRI/MRA head and neck in the a.m. consult teleneurology. Patient is anticoagulated on warfarin at this time and will continue to monitor INR as she was subtherapeutic and therefore will need Lovenox until she is therapeutic again. Will follow stroke protocol for management of hypertension 2. Left leg weakness?chronic status post left knee arthroplasty will order PT consult to evaluate and treat for strength 3. Hyperlipidemia?monitor fasting lipid panel continue statin medication 4. Atrial fibrillation?anticoagulation and rate control 5. Depression?mood stable continue routine home medications 6 smoking?cessation strongly encouraged 7. COPD?continue inhaler medications 8. DVT prophylaxis?patient is on anticoagulation 9. CODE STATUS full code verified Charges/Coding Visit Charges Inpatient E&M: 16004 Init Hosp L2
--- OUTSIDE RECORDS SUMMARY | 2024-10-23 00:33 | XMS RPT_ITS | CCD ---
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 Name Role Phone TWAN SAVAGE, MARIANN Maddox Primary Care Physician [phone] Ariana FULLER, Odilia Unavailable Unavailable VERA WINDOWS SECURITY ANALYST-PAD ASSEMBLER, CHELITA A Primary Care Physi ida ELADIO EDUARDO MD Attending Unavailable VERA WINDOWS SECURITY ANALYST-PAD ASSEMBLER, CHELITA A Primary Care Un available VERA WINDOWS SECURITY ANALYST-PAD ASSEMBLER, CHELITA A Consulting Un available VERA WINDOWS SECURITY ANALYST-PAD ASSEMBLER, CHELITA A Primary Care Un available DR MIKE KEARNEY MD Attending Unavailable VERA WINDOWS SECURITY ANALYST-PAD ASSEMBLER, CHELITA A Attending Un available VERA WINDOWS SECURITY ANALYST-PAD ASSEMBLER, CHELITA A Primary Care Un available VERA WINDOWS SECURITY ANALYST-PAD ASSEMBLER, CHELITA A Primary Care Un available VERA WINDOWS SECURITY ANALYST-PAD ASSEMBLER, CHELITA A Attending Un available VERA WINDOWS SECURITY ANALYST-PAD ASSEMBLER, CHELITA A Primary Care Un available GONSALEZ WINDOWS SECURITY ANALYST-PAD ASSEMBLER, MAKI Attending Unavailabl e VERA WINDOWS SECURITY ANALYST-PAD ASSEMBLER, CHELITA A Primary Care Un available MAURY CASTELLANOS MD Attending Unavailable VERA WINDOWS SECURITY ANALYST-PAD ASSEMBLER, CHELITA A Primary Care Un available DR MIKE KEARNEY MD Attending Unavailable NAINA JERNIGAN MD Consulting Unavailabl e VERA WINDOWS SECURITY ANALYST-PAD ASSEMBLER, CHELITA A Primary Care Un available DR MIKE KEARNEY MD Attending Unavailable VERA WINDOWS SECURITY ANALYST-PAD ASSEMBLER, CHELITA A Primary Care Un available DR MIKE KEARNEY MD Attending Unavailable VERA WINDOWS SECURITY ANALYST-PAD ASSEMBLER, CHELITA A Primary Care Un available LAURIE WINDOWS SECURITY ANALYST-PAD ASSEMBLER, May Attending Unavail able VERA WINDOWS SECURITY ANALYST-PAD ASSEMBLER, CHELITA A Primary Care Un available VERA WINDOWS SECURITY ANALYST-PAD ASSEMBLER, CHELITA A Attending Un available CHRISTEL SAVAGE, DR MIKE Lebron Attending Unavailable VERA WINDOWS SECURITY ANALYST-PAD ASSEMBLER, CHELITA A Primary Care Un available VERA WINDOWS SECURITY ANALYST-PAD ASSEMBLER, CHELITA A Primary Care Un available CHRISTEL SAVAGE, DR MIKE Lebron Attending Unavailable Dr. Mariann Trent Primary Care Provider Dr. Johnathon Richardson Emergency Provider Dr. Eladio Almanza Admit Provider Unavailable Archie, Dr. Hendricks Other Provider Unavailable Dr. Axel Javier Attending Provider Dr. Axel Javier Other Provider Dr. Ozzy Santos Attending Provider Dr. Inés Sierra Attending Provider Pérez, Dr. Rosalva Gan Attending Provider Korisra, Dr. Rosalva Gan Other Provider Dr. Eladio Almanza Referring Provider Unavailab Savage Harper MD Primary Care Provider Savage Gilliam MD Attending Provider Dr. Ava Good DO Attending Provider Dr. Ava Good DO Referring Provider Dr. Ava Good DO Emergency Provider Dr. Jose Carrion DO Emergency Provider Dr. Sukumar Eddy MD Admit Provider Dr. Sukumar Eddy MD Attending Provider Dr. Sukumar Eddy MD Other Provider Dr. Jacob Morgan DO Attending Provider Dr. Jacob Morgan DO Emergency Provider Dr. Inés Sierra MD Attending Provider Eddie DO, Dr. Jacob Referring Provider Marina SAVAGE, Savage Referring Provider Yaneth SAVAGE, Dr. Yi Attending Provider [employer] C[employer] ENGINEER-C, Rob Attending Provider [employer] ENGINEER-C, Rob Referring Provider Ava Good Attending Unavailable Ava Good Referring Unavailable Marina, Chalon Primary Care Unavailable Marina, Chalon Primary Care Unavailable Eddie Jacob Attending Unavailable Kotsonis, Sukumar F Admitting Unavailable Kotsonis, Sukumar F Attending Unavailable Marina, Chalon Primary Care Unavailable Marina, Chalon Primary Care Unavailable EddieMarysolon Attending Unavailable Marina, Chalon Primary Care Unavailable Marina, Chantellon Attending Unavailable Marina, Chalon Primary Care Unavailable [employer] C[employer] ENGINEER, Rob Attending Unavailable [employer] ENGINEER, Rob Referring Unavailable Marina, Chalon Referring Unavailable Kd Wolfe Attending Unavailable Marina, Chalon Primary Care Unavailable Inés Sierra Attending Unavailabl e Marina, Chalon Primary Care Unavailable Eddie, Jacob Referring Unavailable Kotsonis, Sukumar F Admitting Unavailable Kotsonis, Sukumar F Consulting Unavailable Kotsonis, Sukumar F Attending Unavailable Marina, Chalon Primary Care Unavailable Marina, Chalon Primary Care Unavailable Marina, Chalon Attending Unavailable Herman Boogie Attending Unavailable Care Physician, No Primary Primary Care Unava ilable Allergies Allergy Classification Reported Allergen(s) Allergy Type Date of Onset Reaction(s) Facility (14 sources) Codeine; Translations: [codeine] Drug Allergy 3 Dizziness/Verti go, Other, Vertigo [facility] (14 sources) Ibuprofen; Translations: [ibuprofen] Drug Allergy 3 Itching, Rash [facility] (14 sources) Naproxen; Translations: [naproxen] Drug Allergy 3 Hives, Rash [facility] (7 sources) Mayonnaise (substance) Food allergy Facial swelling (finding), Difficulty breathing (finding), Anaphylaxis (disorder) [facility] Comment on above: anaphylaxsis (2 sources) mayojean-pierreaise; Translations: [mayonnaise] Allergy to substance 5 Anaphylaxis [facility] (1 source) Codeine Drug Allergy 5 [facility] Repository (1 source) Ibuprofen Drug Allergy 5 [facility] Repository (1 source) Naproxen Drug Allergy 5 [facility] Repository Medications Current Medications Medication Drug Class(es) Dates Sig (Normalized) Sig (Original) acetaminophen 500 mg oral tablet (9 sources) Start: 09-24-2019 Tylenol Extra Strength 500 mg oral tablet Dose : 1,000 mg = 2 tab(s), Oral, q8h, PRN as needed for pain, # 24 tab(s), 0 Refill(s) Start Date: 09/24/19 Status: Ordered amLODIPine 10 mg oral tablet (15 sources) Dihydropyridine Calcium Channel Aaron Start: 01-19-2024 take 1 tablet by mouth once daily Amlodipine 10 mg tablet Active 10 mg PO daily January 19, 2024 1:00am Start: 01-13-2022 End: 07-20-2023 take 1 tablet by mouth once daily Amlodipine 10 mg tablet Discontinued 10 mg PO DAILY February 11, 2023 1:00am March 17, 2023 12:44am Start: 10-27-2020 Norvasc 10 mg oral tablet Dose : 10 mg = 1 tab(s), Oral, qDay, # 90 tab(s), 3 Refill(s), Pharmacy: [facility], 155, cm, 10/27/20 8:01:00 EDT, Height, kg, 10/27/20 8:01:00 EDT, Dosing Weight Start Date: 10/27/20 Status: Ordered aspirin 81 mg chewable tablet (10 sources) Platelet Aggregation Inhibitor, Nonsteroidal Anti-inflammatory Drug Start: 02-13-2023 take 1 tablet by mouth at breakfast Aspirin 81 mg Tablet,Chewable Active 81 mg PO WITH BREAKFAST February 13, 2023 1:00am Start: 06-27-2017 aspirin 81 mg oral delayed release tablet Dose : 81 mg = 1 tab(s), Oral, Daily, 0 Refill(s) Start Date: 06/27/17 Status: Ordered Start: 06-27-2017 aspirin 81 mg oral delayed release tablet Dose : 81 mg = 1 tab(s), Oral, Daily, 0 Refill(s) Start Date: 06/27/17 Status: Ordered atorvastatin 40 mg oral tablet (15 sources) HMG-CoA Reductase Inhibitor Start: 02-15-2024 take 1 tablet by mouth once daily Atorvastatin 40 mg tablet Active 40 mg PO daily February 15, 2024 1:00am Start: 09-15-2022 End: 01-19-2024 take 1 tablet by mouth at bedtime Atorvastatin 40 mg tablet Discontinued 40 mg PO AT BEDTIME February 11, 2023 1:00am March 17, 2023 12:44am Start: 07-25-2022 atorvastatin 4 0 mg oral tablet Dose : 40 mg = 1 tab(s), Oral, qDay, # 30 tab(s), 2 Refill(s), Pharmacy: [facility], 157.5, cm, 07/15/22 18:25:00 EDT, Height, kg, 07/23/22 5:13:00 EDT, Dosing Weight Start Date: 07/25/22 Status: Ordered Start: 01-13-2022 atorvastatin 2 0 mg oral tablet Dose : 20 mg = 1 tab(s), Oral, Daily, # 90 tab(s), 3 Refill(s), Pharmacy: [facility], 157.5, cm, 01/13/22 9:01:00 EST, Height, kg, 01/13/22 9:01:00 EST, Dosing Weight Start Date: 01/13/22 Status: Ordered Start: 01-14-2021 atorvastatin 2 0 mg oral tablet Dose : 20 mg = 1 tab(s), Oral, Daily, # 90 tab(s), 3 Refill(s), Pharmacy: [facility], 157.5, cm, 01/14/21 15:05:00 EST, Height, kg, 01/14/21 15:05:00 EST, Dosing Weight Start Date: 01/14/21 Status: Ordered calcium carbonate 600 MG / ergocalciferol 200 UNT Oral Capsule (9 sources) Provitamin D2 Compound Start: 12-24-2022 End: 12-19-2023 take 1 capsule by mouth twice daily calcium-vitamin D 600 mg-5 mcg (200 intl units) oral capsule Dose = 1 cap(s), Oral, BID, # 180 cap(s), 3 Refill(s), Pharmacy: [facility], 157.5, cm, 09/15/22 9:12:00 EDT, Height, kg, 12/24/22 11:35:00 EST, Dosing Weight Start Date: 12/24/22 Stop Date: 12/19/23 Status: Ordered Start: 01-13-2022 End: 01-08-2023 take 1 capsule by mouth twice daily calcium-vitamin D 600 mg-5 mcg (200 intl units) oral capsule Dose = 1 cap(s), Oral, BID, # 180 cap(s), 3 Refill(s), Pharmacy: [facility], 157.5, cm, 01/13/22 9:01:00 EST, Height Start Date: 01/13/22 Stop Date: 01/08/23 Status: Ordered Start: 02-21-2020 take 1 capsule by mo [facility] twice daily calcium-vitamin D 600 mg-200 intl units (5 mcg) oral capsule Dose = 1 cap(s), Oral, BID Start Date: 02/21/20 Status: Ordered Calcium Carbonate / vitamin D3 (1 source) Start: 02-11-2023 calcium carbonate-vitamin D3 Active 1 {tbl} PO DAILY February 11, 2023 1:00am carBAMazepine 200 mg oral tablet (16 sources) Mood Stabilizer Start: 02-15-2024 take 1 tablet by mouth four times daily Carbamazepine 200 mg tablet Active 200 mg PO .qid February 15, 2024 4:04pm Start: 01-19-2024 End: 02-15-2024 take 1 tablet by mouth twice daily Carbamazepine 200 mg tablet Discontinued 200 mg PO TWICE A DAY January 19, 2024 2:13pm February 15, 2024 4:05pm Start: 02-11-2023 End: 03-16-2023 take 1 tablet by mouth every twelve hours Carbamazepine 200 mg tablet Discontinued 400 mg PO Q12H February 11, 2023 1:00am March 17, 2023 12:45am Start: 01-15-2023 take 400 mg by mouth twice daily Carbamazepine Active 400 MG PO TWICE A DAY January 15, 2023 12:00am Start: 01-13-2022 End: 01-19-2024 Carbamazepine 200 mg tablet Discontinued 200 mg PO .x4 January 15, 2023 1:00am January 19, 2024 2:16pm Start: 10-27-2020 carBAMazepine 200 mg oral tablet Dose : 400 mg = 2 tab(s), Oral, BID, # 360 tab(s), 0 Refill(s), Pharmacy: [facility], 155, cm, 10/27/20 8:01:00 EDT, Height, kg, 10/27/20 8:01:00 EDT, Dosing Weight Start Date: 10/27/20 Status: Ordered carvedilol 25 mg oral tablet (7 sources) alpha-Adrenergic Aaron, beta-Adrenergic Aaron Start: 02-15-2024 End: 02-15-2024 take 1 tablet by mouth twice daily Carvedilol 25 mg tablet Active 25 mg PO TWICE A DAY 60 February 15, 2024 4:35pm Start: 01-19-2024 End: 02-15-2024 Carvedilol 25 mg tablet Disc ontinued 12.5 mg PO TWICE A DAY January 19, 2024 2:13pm February 15, 2024 4:05pm Start: 04-14-2023 carvedilol 12. 5 mg oral tablet Dose : 12.5 mg = 1 tab(s), Oral, BID, # 180 tab(s), 3 Refill(s), Pharmacy: [facility], 157.5, cm, 04/11/23 11:05:00 EST, Height, kg, 04/11/23 11:05:00 EST, Dosing Weight Start Date: 04/14/23 Status: Ordered Start: 03-17-2023 carvedilol 25 mg oral tablet Dose : 25 mg = 1 tab(s), Oral, BID, # 60 tab(s), 0 Refill(s), Pharmacy: [facility], 157.5, cm, 02/18/23 9:18:00 EST, Height, kg, 02/18/23 9:18:00 EST, Dosing Weight Start Date: 03/17/23 Status: Ordered Start: 02-13-2023 End: 01-19-2024 carvedilol 25 mg oral tablet Dose : 25 mg = 1 tab(s), Oral, BID, # 180 tab(s), 0 Refill(s) Start Date: 02/18/23 Status: Ordered clopidogrel 75 mg oral tablet (1 source) [id number] Platelet Inhibitor Start: 03-30-2022 clopidogrel 75 mg oral tablet 0 Refill(s) Start Date: 03/30/22 Status: Ordered Green Source Multivitamin & Minerals oral tablet (9 sources) Start: 01-07-2014 take 1 tablet by mouth once daily Green Source Multivitamin & Minerals oral tablet Dose = 1 tab(s), Oral, Daily, 0 Refill(s) Start Date: 01/07/14 Status: Ordered hydrALAZINE hydrochloride 100 mg oral tablet (20 sources) Arteriolar Vasodilator Start: 02-15-2024 take 1 tablet by mouth three times daily Hydralazine 100 mg tablet Active 100 mg PO THREE TIMES A DAY 90 February 15, 2024 4:26pm Start: 01-18-2024 End: 02-15-2024 take 1 tablet by mouth three times daily Hydralazine 50 mg Tablet Discontinued 50 mg PO THREE TIMES A DAY January 18, 2024 1:00am February 15, 2024 4:27pm Start: 02-11-2023 End: 02-13-2023 Hydralazine 10 mg tablet Discontinued mg February 11, 2023 1:00am February 13, 2023 3:22pm Start: 02-11-2023 End: 03-16-2023 take 1 tablet by mouth every eight hours Hydralazine 100 mg tablet Discontinued 100 mg PO Q8H February 11, 2023 1:00am March 17, 2023 12:45am Start: 01-16-2023 End: 01-20-2023 take 1 tablet by mouth three times daily Hydralazine 10 mg tablet Discontinued 10 mg PO THREE TIMES A DAY January 16, 2023 1:00am January 20, 2023 11:51am Start: 01-15-2023 End: 01-18-2024 hydrALAZINE 100 mg oral tabl et Dose : 100 mg = 1 tab(s), Oral, TID, # 270 tab(s), 3 Refill(s), Pharmacy: [facility], 157.5, cm, 02/18/23 9:18:00 EST, Height, kg, 02/18/23 9:18:00 EST, Dosing Weight Start Date: 02/18/23 Status: Ordered Start: 12-13-2022 hydrALAZINE 10 mg oral tablet Dose : 10 mg = 1 tab(s), Oral, TID, # 270 tab(s), 3 Refill(s), Pharmacy: [facility], 157.5, cm, 09/15/22 9:12:00 EDT, Height, kg, 09/15/22 9:12:00 EDT, Dosing Weight Start Date: 12/13/22 Status: Ordered Start: 07-25-2022 hydrALAZINE 10 mg oral tablet Dose : 10 mg = 1 tab(s), Oral, TID, # 90 tab(s), 2 Refill(s), Pharmacy: [facility], 157.5, cm, 07/15/22 18:25:00 EDT, Height, kg, 07/23/22 5:13:00 EDT, Dosing Weight Start Date: 07/25/22 Status: Ordered Start: 07-25-2022 End: 07-25-2022 hydrALAZINE Start: 07/25/22 6:00:00 EDT, Dose = 10 mg, = 1 tab(s), Oral, 0, 07/15/22 18:41:00 EDT Start Date: 07/25/22 Stop Date: 07/25/22 Status: Completed Start: 01-13-2022 hydrALAZINE 10 0 mg oral tablet Dose : 100 mg = 1 tab(s), Oral, TID, # 90 tab(s), 3 Refill(s), Pharmacy: [facility], 157.5, cm, 01/13/22 9:01:00 EST, Height, kg, 01/13/22 9:01:00 EST, Dosing Weight Start Date: 01/13/22 Status: Ordered Start: 10-27-2020 hydrALAZINE 10 0 mg oral tablet Dose : 100 mg = 1 tab(s), Oral, TID, # 270 tab(s), 3 Refill(s), Pharmacy: [facility], 155, cm, 10/27/20 8:01:00 EDT, Height, kg, 10/27/20 8:01:00 EDT, Dosing Weight Start Date: 10/27/20 Status: Ordered losartan potassium 100 mg oral tablet (2 sources) Angiotensin 2 Receptor Aaron Start: 01-13-2022 End: 01-08-2023 losartan 100 mg oral tablet Dose : 100 mg = 1 tab(s), Oral, qDay, # 90 tab(s), 3 Refill(s), Pharmacy: [facility], 157.5, cm, 01/13/22 9:01:00 EST, Height, kg, 01/13/22 9:01:00 EST, Dosing Weight Start Date: 01/13/22 Stop Date: 01/08/23 Status: Ordered Start: 10-27-2020 losartan 100 m g oral tablet Dose : 100 mg = 1 tab(s), Oral, qDay, # 90 tab(s), 3 Refill(s), Pharmacy: [facility], 155, cm, 10/27/20 8:01:00 EDT, Height, kg, 10/27/20 8:01:00 EDT, Dosing Weight Start Date: 10/27/20 Status: Ordered minoxidil 2.5 mg oral tablet (3 sources) Arteriolar Vasodilator Start: 01-13-2022 End: 01-08-2023 minoxidil 2.5 mg oral tablet Dose : 2.5 mg = 1 tab(s), Oral, Daily, # 90 tab(s), 3 Refill(s), Pharmacy: [facility], 157.5, cm, 01/13/22 9:01:00 EST, Height, kg, 01/13/22 9:01:00 EST, Dosing Weight Start Date: 01/13/22 Stop Date: 01/08/23 Status: Ordered Start: 10-27-2020 minoxidil 2.5 mg oral tablet Dose : 2.5 mg = 1 tab(s), Oral, Daily, # 90 tab(s), 3 Refill(s), Pharmacy: [facility], 155, cm, 10/27/20 8:01:00 EDT, Height, kg, 10/27/20 8:01:00 EDT, Dosing Weight Start Date: 10/27/20 Status: Ordered Multivitamin (Daily Multi-Vitamin) tablet (1 source) Start: 02-11-2023 Multivitamin ( Daily Multi-Vitamin) tablet Active 1 {tbl} PO DAILY February 11, 2023 1:00am ofloxacin 3 mg/ml ophthalmic solution (5 sources) Quinolone Antimicrobial Start: 01-28-2023 ofloxacin 0.3% ophthalmic solution Dose = 1 drop(s), Eyes, both, QID, # 5 mL, 0 Refill(s) Start Date: 01/28/23 Status: Ordered Start: 01-15-2023 End: 01-17-2024 take 0.3 drop(s) into the eye(s) once daily Ofloxacin 0.3 % drops Discontinued 1 NMA OPHTHALMIC DAILY January 15, 2023 1:00am January 17, 2024 1:42pm polyethylene glycol 3350 [id number] mg powder for oral solution (6 sources) Osmotic Laxative Start: 07-15-2022 take 17 doses by mouth once daily as needed for constipation MiraLax oral powder for reconstitution Dose : 17 gram(s) =, Oral, qDay, PRN Constipation, 0 Refill(s) Start Date: 07/15/22 Status: Ordered potassium chloride 10 meq extended release oral capsule (3 sources) Start: 04-16-2022 End: 04-11-2023 take 10 capsules by mouth once daily potassium chloride 10 mEq oral capsule, extended release Dose : 10 mEq =, Oral, qDay, # 30 cap(s), 3 Refill(s), other reason (Rx) Start Date: 04/16/22 Stop Date: 04/11/23 Status: Ordered Start: 01-13-2022 End: 01-08-2023 take 10 capsules by mouth twice daily potassium chloride 10 mEq oral capsule, extended release Dose : 10 mEq =, Oral, BID, # 180 EA, 3 Refill(s), Pharmacy: [facility], 157.5, cm, 01/13/22 9:01:00 EST, Height, kg, 01/13/22 9:01:00 EST, Dosing Weight Start Date: 01/13/22 Stop Date: 01/08/23 Status: Ordered Start: 10-27-2020 End: 10-22-2021 take 10 capsules by mouth twice daily potassium chloride 10 mEq oral capsule, extended release Dose : 10 mEq =, Oral, BID, # 180 cap(s), 3 Refill(s), Pharmacy: [facility], 155, cm, 10/27/20 8:01:00 EDT, Height, kg, 10/27/20 8:01:00 EDT, Dosing Weight Start Date: 10/27/20 Stop Date: 10/22/21 Status: Ordered rivaroxaban 2.5 mg oral tablet (2 sources) Factor Xa Inhibitor Start: 01-20-2022 Xarelto 2. 5 mg oral tablet Dose : 2.5 mg = 1 tab(s), Oral, BID, # 60 tab(s), 11 Refill(s), Pharmacy: [facility], 157.5, cm, 01/20/22 9:33:00 EST, Height, 58.1 Start Date: 01/20/22 Status: Ordered Start: 01-14-2021 Xarelto 2.5 mg oral tablet Dose : 2.5 mg = 1 tab(s), Oral, BID, # 60 tab(s), 11 Refill(s), Pharmacy: [facility], 157.5, cm, 01/14/21 15:05:00 EST, Height, 60.8, kg, 01/14/21 15:05:00 EST, Dosing Weight Start Date: 01/14/21 Status: Ordered spironolactone 25 mg oral tablet (3 sources) Aldosterone Antagonist Start: 01-13-2022 End: 01-08-2023 spironolactone 25 mg oral tablet Dose : 25 mg = 1 tab(s), Oral, BID, # 180 tab(s), 3 Refill(s), Pharmacy: [facility], 157.5, cm, 01/13/22 9:01:00 EST, Height, kg, 01/13/22 9:01:00 EST, Dosing Weight Start Date: 01/13/22 Stop Date: 01/08/23 Status: Ordered Start: 10-27-2020 End: 10-22-2021 spironolactone 25 mg oral ta blet Dose : 25 mg = 1 tab(s), Oral, BID, # 180 tab(s), 3 Refill(s), Pharmacy: [facility], 155, cm, 10/27/20 8:01:00 EDT, Height, kg, 10/27/20 8:01:00 EDT, Dosing Weight Start Date: 10/27/20 Stop Date: 10/22/21 Status: Ordered valsartan 160 mg oral tablet (15 sources) Angiotensin 2 Receptor Aaron Start: 02-15-2024 End: 04-08-2024 take 1 tablet by mouth twice daily Valsartan 160 mg tablet Active 160 mg PO TWICE A DAY April 08, 2024 2:20pm Start: 01-19-2024 End: 02-15-2024 take 1 tablet by mouth once daily Valsartan 160 mg tablet Discontinued 160 mg PO daily January 19, 2024 2:14pm February 15, 2024 4:05pm Start: 03-30-2022 End: 01-19-2024 take 1 tablet by mouth twice daily Valsartan 160 mg tablet Discontinued 160 mg PO TWICE A DAY February 11, 2023 1:00am March 17, 2023 12:46am warfarin sodium 3 mg oral tablet (11 sources) Vitamin K Antagonist Start: 03-03-2023 warfarin 3 mg oral tablet See Instructions, Take 1&1/2 tabs (4.5 mg) on Tuesday, Tuesday and Tuesday. Take 1 tab (3mg) all other days or as directed., # 110 tab(s), 1 Refill(s), Pharmacy: [facility], 157.5, cm, 02/18/23 9:18:00 EST, Height, kg, 02/18/23 9:18:00 EST, Dosing Weight Start Date: 03/03/23 Status: Ordered Start: 02-11-2023 take 4.5 mg by mouth once daily Warfarin 3 mg tablet Active 4.5 mg PO DAILY February 11, 2023 1:00am 4.5 mg TUESDAY, TUESDAY, TUESDAY; 3 mg Sat, Tue, , Start: 01-15-2023 End: 03-16-2023 take 1 tablet by mouth once daily Warfarin 2.5 mg tablet Discontinued 2.5 mg PO DAILY January 15, 2023 1:00am March 17, 2023 12:46am Start: 01-15-2023 Warfarin Activ e MG January 15, 2023 12:00am Start: 08-16-2022 End: 08-11-2023 warfarin 3 mg oral tablet Do se : 6 mg = 2 tab(s), Oral, qDay, # 180 tab(s), 3 Refill(s), [facility] Warfarin anticoagulation Afib, 157.5, cm, 08/09/22 15:26:00 EDT, Height, kg, 08/09/22 15:26:00 EDT, Dosing Weight Start Date: 08/16/22 Stop Date: 08/11/23 Status: Ordered Start: 07-25-2022 End: 10-17-2022 warfarin 2.5 mg oral tablet Dose : 2.5 mg = 1 tab(s), Oral, Daily, # 42 tab(s), 1 Refill(s), Pharmacy: [facility], 157.5, cm, 07/15/22 18:25:00 EDT, Height, kg, 07/23/22 5:13:00 EDT, Dosing Weight Start Date: 07/25/22 Stop Date: 10/17/22 Status: Ordered Completed/Discontinued Medications Medication Drug Class(es) Dates Sig (Normalized) Sig (Original) amiodarone hydrochloride 200 mg oral tablet (12 sources) Antiarrhythmic Start: 02-15-2024 End: 02-15-2024 Amiodarone 200 mg tablet Discontinued 100 mg PO DAILY February 15, 2024 4:25pm February 15, 2024 4:34pm Start: 02-11-2023 End: 02-15-2024 take 1 tablet by mouth once daily Amiodarone 200 mg tablet Discontinued 200 mg PO DAILY February 11, 2023 1:00am February 15, 2024 4:27pm Start: 01-15-2023 End: 03-16-2023 amiodarone 200 mg oral table t Dose : 200 mg = 1 tab(s), Oral, qDay, # 90 tab(s), 3 Refill(s), other reason (Rx) Start Date: 02/18/23 Status: Ordered Start: 01-15-2023 Amiodarone Act marce MG January 15, 2023 12:00am Start: 09-21-2022 amiodarone 200 mg oral tablet Dose : 200 mg = 1 tab(s), Oral, BID, # 180 tab(s), 3 Refill(s), Pharmacy: [facility], 157.5, cm, 09/15/22 9:12:00 EDT, Height, kg, 09/15/22 9:12:00 EDT, Dosing Weight Start Date: 09/21/22 Status: Ordered Start: 07-25-2022 amiodarone 200 mg oral tablet Dose : 200 mg = 1 tab(s), Oral, BID, # 60 tab(s), 0 Refill(s), Pharmacy: [facility], 157.5, cm, 07/15/22 18:25:00 EDT, Height Start Date: 07/25/22 Status: Ordered cloNIDine hydrochloride 0.2 mg oral tablet (15 sources) Central alpha-2 Adrenergic Agonist Start: 01-18-2024 End: 02-15-2024 take 1 tablet by mouth three times daily Clonidine Hcl 0.2 mg Tablet Discontinued 0.2 mg PO THREE TIMES A DAY January 18, 2024 1:00am February 15, 2024 4:26pm Start: 02-11-2023 End: 03-16-2023 take 1 tablet by mouth every eight hours Clonidine Hcl 0.3 mg tablet Discontinued 0.3 mg PO Q8H February 11, 2023 1:00am March 17, 2023 12:45am Start: 01-13-2022 End: 01-18-2024 take 1 tablet by mouth three times daily Clonidine Hcl 0.3 mg tablet Discontinued 0.3 mg PO THREE TIMES A DAY January 15, 2023 1:00am January 18, 2024 10:35am Start: 10-27-2020 cloNIDine 0.3 mg oral tablet Dose : 0.3 mg = 1 tab(s), Oral, TID, # 270 tab(s), 3 Refill(s), Pharmacy: [facility], 155, cm, 10/27/20 8:01:00 EDT, Height, kg, 10/27/20 8:01:00 EDT, Dosing Weight Start Date: 10/27/20 Status: Ordered hydroCHLOROthiazide 25 mg oral tablet (4 sources) Thiazide Diuretic Start: 01-20-2023 End: 03-16-2023 take 1 tablet by mouth once daily Hydrochlorothiazide 25 mg Tablet Discontinued 25 mg PO DAILY January 20, 2023 1:00am March 17, 2023 12:45am Start: 04-16-2022 hydroCHLOROthi azide 12.5 mg oral capsule Dose : 12.5 mg = 1 cap(s), Oral, qDay, # 90 cap(s), 3 Refill(s), Pharmacy: [facility], 157.5, cm, 04/16/22 11:41:00 EST, Height Start Date: 04/16/22 Status: Ordered 24 hr isosorbide mononitrate 60 mg extended release oral tablet (6 sources) Nitrate Vasodilator Start: 01-19-2024 End: 02-15-2024 take 1 tablet by mouth once daily, then take 1 tablet by mouth every twenty-four hours Isosorbide Mononitrate 60 mg tablet extended release 24 hr Discontinued 60 mg PO daily January 19, 2024 1:00am February 15, 2024 4:26pm Start: 03-01-2023 isosorbide mon onitrate 60 mg oral tablet, extended release Dose : 60 mg = 1 tab(s), Oral, qAM, # 90 tab(s), 3 Refill(s), Pharmacy: [facility], 157.5, cm, 02/18/23 9:18:00 EST, Height, kg, 02/18/23 9:18:00 EST, Dosing Weight Start Date: 03/01/23 Status: Ordered Start: 01-13-2022 isosorbide mon onitrate 120 mg oral tablet, extended release Dose : 120 mg = 1 tab(s), Oral, qAM, # 90 tab(s), 3 Refill(s), Pharmacy: [facility], 157.5, cm, 01/13/22 9:01:00 EST, Height, kg, 01/13/22 9:01:00 EST, Dosing Weight Start Date: 01/13/22 Status: Ordered Start: 10-27-2020 isosorbide mon onitrate 120 mg oral tablet, extended release Dose : 120 mg = 1 tab(s), Oral, qAM, # 90 tab(s), 3 Refill(s), Pharmacy: [facility], 155, cm, 10/27/20 8:01:00 EDT, Height, kg, 10/27/20 8:01:00 EDT, Dosing Weight Start Date: 10/27/20 Status: Ordered labetalol hydrochloride 100 mg oral tablet (13 sources) beta-Adrenergic Aaron Start: 02-11-2023 End: 02-13-2023 take 1 tablet by mouth every twelve hours Labetalol 100 mg tablet Discontinued 100 mg PO Q12H February 11, 2023 1:00am February 13, 2023 3:22pm Start: 07-25-2022 End: 07-25-2022 labetalol Start: 07/25/22 9: 00:00 EDT, Dose = 100 mg, = 1 tab(s), Oral, 07/15/22 18:41:00 EDT Start Date: 07/25/22 Stop Date: 07/25/22 Status: Completed Start: 01-13-2022 End: 07-20-2023 take 1 tablet by mouth twice daily Labetalol 100 mg tablet Discontinued 100 mg PO TWICE A DAY January 15, 2023 1:00am March 17, 2023 12:45am Start: 10-27-2020 End: 10-22-2021 labetalol 100 mg oral tablet Dose : 100 mg = 1 tab(s), Oral, BID, # 180 tab(s), 3 Refill(s), Pharmacy: [facility], 155, cm, 10/27/20 8:01:00 EDT, Height, kg, 10/27/20 8:01:00 EDT, Dosing Weight Start Date: 10/27/20 Stop Date: 10/22/21 Status: Ordered oxyCODONE hydrochloride 5 mg oral tablet (3 sources) Opioid Agonist Start: 07-25-2022 End: 07-28-2022 oxyCODONE 5 mg oral tablet ( IMMEDIATE release ) Dose : 5 mg = 1 tab(s), Oral, q6hr, PRN Pain, scale 7-10, # 12 tab(s), 0 Refill(s), Pharmacy: [facility], CAD (coronary artery disease) s/p CABG x3, EF 55-60%, 07/09/2022 Hx of CABG, 157.5, cm, 07/15/22 18:25:00 EDT, Height, 57.4 Start Date: 07/25/22 Stop Date: 07/28/22 Status: Ordered polymyxin b 56163 unt/ml / trimethoprim 1 mg/ml ophthalmic solution (2 sources) Dihydrofolate Reductase Inhibitor Antibacterial, Polymyxin-class Antibacterial Start: 02-11-2023 End: 01-17-2024 Polymyxin B Sulf-Trimethoprim 10,000 unit- 1 mg/mL drops Discontinued 1 NMA OPHTHALMIC TWICE A DAY February 11, 2023 1:00am January 17, 2024 1:42pm Start: 12-20-2022 End: 12-27-2022 take 1 dose into the eye(s) every three hours polymyxin B-trimethoprim 10,000 units-1 mg/mL ophthalmic solution Dose = 1 drop(s), Ophthalmic, q3h, X 7 day(s), # 10 mL, 0 Refill(s), Pharmacy: [facility], Conjunctivitis, 157.5, cm, 09/15/22 9:12:00 EDT, Height, kg, 09/15/22 9:12:00 EDT, Dosing Weight Start Date: 12/20/22 Stop Date: 12/27/22 Status: Ordered Problems Active Problems Problem Classification Problem Date Documented Date Episodic/Chronic Acute cerebrovascular disease (12 sources) Cerebrovascular accident; Translations: [Ischemic stroke] Onset: 02-15-2024 01-13-2021 Chronic Acute myocardial infarction (11 sources) Acute non-ST segment elevation myocardial infarction; Translations: [Myocardial infarction] 06-27-2017 Chronic Bacterial infection; unspecified site (1 source) Rheumatic fever; Translations: [Rheumatic fever without heart involvement] 01-19-2024 Episodic Cardiac dysrhythmias (20 sources) Unspecified atrial fibrillation; Translations: [Atrial fibrillation] Onset: 07-16-2022 Chronic Chronic obstructive pulmonary disease and bronchiectasis (20 sources) Acute exacerbation of chronic obstructive airways disease; 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] 09-20-2019 Chronic Coagulation and hemorrhagic disorders (1 source) Thrombocytopenic disorder; Translations: [Thrombocytopenia, unspecified] 01-19-2024 Chronic Coronary atherosclerosis and other heart disease (18 sources) Coronary arteriosclerosis; Translations: [Coronary atherosclerosis] Onset: 07-15-2022 01-24-2020 Chronic Coronary atherosclerosis and other heart disease (1 source) Aortocoronary bypass graft present; Translations: [Presence of aortocoronary bypass graft] Onset: 07-25-2022 Episodic Deficiency and other anemia (10 sources) Anemia; Translations: [Anemia, unspecified] Onset: 07-16-2022 Episodic Diabetes mellitus without complication (7 sources) Type 2 diabetes mellitus without complication; Translations: [Type 2 diabetes mellitus without complications] Onset: 12-24-2022 Chronic Disorders of lipid metabolism (12 sources) Dyslipidemia; Translations: [Hyperlipidemia] 09-20-2019 Chronic Comment on above: 07/13/2018: Total chol esterol 132, triglycerides 42, HDL 63 and LDL 61 AST 14 and ALT 19 09/24/2015: Total cholesterol 138, triglycerides 94, HDL 60 and LDL 59; AST 15 ALT 11 Epilepsy; convulsions (13 sources) Epilepsy; Translations: [Epilepsy, unspecified, not intractable, without status epilepticus] Onset: 07-16-2022 01-24-2020 Chronic Esophageal disorders (1 source) Gastroesophageal reflux disease; Translations: [Gastro-esophageal reflux disease without esophagitis] 01-19-2024 Chronic Essential hypertension (20 sources) Hypertensive disorder; 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] Onset: 07-16-2022 10-27-2020 Chronic Fluid and electrolyte disorders (2 sources) Acute hyponatremia; Translations: [Hypo-osmolality and hyponatremia] 12-14-2023 Episodic Headache; including migraine (1 source) Chronic headache disorder; Translations: [Chronic headache disorder] 01-19-2024 Episodic Heart valve disorders (20 sources) Aortic valve stenosis; Translations: [Mitral valve prolapse] Onset: 07-09-2022 01-13-2021 Chronic Comment on above: #23 Magna Ease Joint disorders and dislocations; trauma-related (1 source) Dislocation of shoulder joint; Translations: [Unspecified dislocation of left shoulder joint, initial encounter] 03-03-2023 Episodic Mood disorders (1 source) Depressive disorder; Translations: [Depression] 01-19-2024 Chronic Occlusion or stenosis of precerebral arteries (1 source) Carotid artery stenosis; Translations: [Occlusion and stenosis of unspecified carotid artery] 01-19-2024 Chronic Other aftercare (7 sources) Long-term current use of anticoagulant; Translations: [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] Episodic Other aftercare (5 sources) Surgical follow-up 08-02-2022 Episodic Other circulatory disease (2 sources) Low blood pressure; Translations: [Hypotension, unspecified] 01-21-2023 Episodic Other circulatory disease (2 sources) Orthostatic hypotension; Translations: [Orthostatic hypotension] 01-21-2023 Episodic Other circulatory disease (1 source) H/O: atrial fibrillation; Translations: [Personal history of other diseases of the circulatory system] 03-25-2023 Episodic Other connective tissue disease (6 sources) Recurrent falls ; Translations: [Repeated falls] 01-15-2023 Episodic Other injuries and conditions due to external causes (1 source) Closed injury of head; Translations: [Unspecified injury of head, initial encounter] 03-25-2023 Episodic Other lower respiratory disease (11 sources) Dyspnea; Translations: [Shortness of breath] 06-27-2017 Episodic Other lower respiratory disease (1 source) History of chronic obstructive airway disease; Translations: [Personal history of other diseases of the respiratory system] 12-14-2023 Episodic Other nervous system disorders (10 sources) H/O: [employer] disorder 09-20-2019 Episodic Other nervous system disorders (9 sources) H/O: epilepsy 01-13-2022 Episodic Other nervous system disorders (4 sources) Abnormal gait; Translations: [Unsteadiness on feet] 01-15-2023 Episodic Other nutritional; endocrine; and metabolic disorders (1 source) H/O: diabetes mellitus; Translations: [Personal history of other endocrine, nutritional and metabolic disease] 12-14-2023 Episodic Otitis media and related conditions (1 source) Perforation of tympanic membrane; Translations: [Unspecified perforation of tympanic membrane, unspecified ear] 01-19-2024 Episodic [place]ina-; endo-; and myocarditis; cardiomyopathy (except that caused by tuberculosis or sexually transmitted disease) (10 sources) Rheumatic heart disease 06-27-2017 Chronic Peripheral and visceral atherosclerosis (20 sources) Renal artery stenosis; Translations: [Atherosclerosis of renal artery] 09-20-2019 Chronic Comment on above: 06/28/17 - Percutaneo us intervention on the 80% stenosis at the ostium of the right renal artery. Balloon angioplasty. Stent placement ( Mariela) S/P right stent 06/28 STENT PLACED PER PT Pleurisy; pneumothorax; pulmonary collapse (7 sources) Pleural effusion 07-13-2022 Episodic Residual codes; unclassified (10 sources) Tobacco user 06-27-2017 Episodic Respiratory failure; insufficiency; arrest (adult) (7 sources) Respiratory failure; insufficiency; arrest (adult) 07-09-2022 Superficial injury; contusion (15 sources) Abrasion of left ring finger; Translations: [Abrasion of left ring finger, initial encounter] 01-15-2023 Episodic Transient cerebral ischemia (1 source) Transient cerebral ischemia; Translations: [Transient cerebral ischemic attack, unspecified] 01-19-2024 Chronic Unclassified (4 sources) Anticoagulant effect 08-09-2022 Past or Other Problems Problem Classification Problem Date Documented Date Episodic/Chronic Cardiac dysrhythmias (13 sources) Bradycardia; Translations: [Bradycardia, unspecified] Onset: 02-15-2024 01-24-2020 Episodic Malaise and fatigue (6 sources) Asthenia; Translations: [Weakness] Onset: 07-16-2022 Episodic Other aftercare (3 sources) 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; Translations: [Long-term (current) use of 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] 01-15-2023 Episodic Other connective tissue disease (3 sources) Repeated falls; Translations: [History of fall] 01-15-2023 Episodic Other nervous system disorders (3 sources) Unsteadiness on feet; Translations: [Abnormality of gait] 01-15-2023 Episodic Other screening for suspected conditions (not mental disorders or infectious disease) (7 sources) Increased glucose level; Translations: [Deviation of international normalized ratio from target range] Onset: 02-14-2024 09-14-2022 Episodic Syncope (5 sources) Vasovagal symptom; Translations: [Syncope and collapse] Onset: 03-01-2024 02-18-2023 Episodic Results Test Name Value Interpretation Reference Range Facility Basic Metabolic Profile (BMP )on 10-18-2024 BUN/CRE 16.1 RATIO Normal 10- [facility] Comment on above: Order Comment: Order Date: 08/27/24Order Info: 0667-1 - BMP Performed By: #### L 500.7965 ####[facility] [id number] [place], [address] Calcium [Mass/Vol] 8.9 mg/dL Normal 7.6-11.0 [facility] Comment on above: Order Comment: Order Date: 08/27/24Order Info: 666-02 - BMP Performed By: #### L 500.2500 ####[facility] [id number] [place], [address] Chloride [Moles/Vol] 100 mmol/L Normal 98-108 [facility] Comment on above: Order Comment: Order Date: 08/27/24Order Info: 666-02 - BMP Performed By: #### L 500.2500 ####[facility] [id number] [place], [address] CO2 [Moles/Vol] 26.2 mmol/L Normal 21.0-32.0 [facility] Comment on above: Order Comment: Order Date: 08/27/24Order Info: 666-02 - BMP Performed By: #### L 500.2500 ####[facility] [id number] [place], [address] Creatinine [Mass/Vol] 0.56 mg/dL Low 0.70-1.20 [facility] Comment on above: Order Comment: Order Date: 08/27/24Order Info: 666-02 - BMP Performed By: #### L 500.2500 ####[facility] [id number] [place], [address] GAP 11 Normal 5-15 [facility] Comment on above: Order Comment: Order Date: 08/27/24Order Info: 666-02 - BMP Performed By: #### L 500.2500 ####[facility] [id number] [place], [address] GFR/1.73 sq M.predicted among non-blacks MDRD (S/P/Bld) [Vol rate/Area] 95 mL/min/{1.73_m2} Normal >60 [facility] Comment on above: Order Comment: Order Date: 08/27/24Order Info: 666-02 - BMP Result Comment: mL/m in/1.73m2 CKD-EPI Creatinine Equation (2020) Performed By: #### L 500.2500 ####[facility] [id number] [place], [address] Glucose [Mass/Vol] 126 mg/dL High 70-99 [facility] Comment on above: Order Comment: Order Date: 08/27/24Order Info: 666-02 - BMP Performed By: #### L 500.2500 ####[facility] [id number] [place], [address] Potassium [Moles/Vol] 4.0 mmol/L Normal 3.3-5.1 [facility] Comment on above: Order Comment: Order Date: 08/27/24Order Info: 666-02 - BMP Performed By: #### L 500.2500 ####[facility] [id number] [place], [address] Sodium [Moles/Vol] 137 mmol/L Normal 133-145 [facility] Comment on above: Order Comment: Order Date: 08/27/24Order Info: 666-02 - BMP Performed By: #### L 500.2500 ####[facility] [id number] [place], [address] Urea nitrogen [Mass/Vol] 9 mg/dL Normal 4-19 [facility] Comment on above: Order Comment: Order Date: 08/27/24Order Info: 666-02 - BMP Performed By: #### L 500.2500 ####[facility] [id number] [place], [address] Microalb:Creat Ratio,Random URon 10-18-2024 Creatinine [Mass/Vol] 71.60 mg/dL Normal 28.00-217.00 [facility] Comment on above: Order Comment: Order Date: 10/18/24Order Info: [id number] - MIALB Performed By: #### L 100.0100, L300.3900, L500.2500 #### [facility] Laboratory [address] [place], [address] MALB:CREAT 67.5 mg/g CRE High <30 mg/g CRE [facility] Comment on above: Order Comment: Order Date: 10/18/24Order Info: [id number] - MIALB Performed By: #### L 100.0100, L300.3900, L500.2500 #### [facility] [address] [place], [address] MICROALBUMIN,UR 48.3 mg/L Normal <20 mg/L [facility] Comment on above: Order Comment: Order Date: 10/18/24Order Info: [id number] - MIALB Performed By: #### L 100.0100, L300.3900, L500.2500 #### [facility] Laboratory [address] [facility] [place], [address] Lung Screeningon 04-05-[address] Lung Screening [facility] [address] [place] [address] Lung Screening MR#: [id number] Acct: [id number] Name: MARK MARTIN Rep #: [id number] : 1950 F 74 From: Estevan muhammad MD PCP: Dr. 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 Patient has smoked 2 packs per day for 45 years. TECHNIQUE: Low Dose CT Lung Screening without contrast COMPARISON: None. FINDINGS: PULMONARY NODULES: (Only nodules >6mm are reported) Nodules described below are on series 1 unless otherwise specified. Pulmonary Nodules: No concerning pulmonary nodules. Hardware:None Lymph Nodes:No mediastinal hilar or axillary lymphadenopathy. Heart and Vasculature:Normal heart size. No pericardial effusion.Atheroscler otic plaque formation of the aortic arch and descending thoracic aorta. Coronary Artery Calcifications: Present. Prior aortic valve replacement. Lungs and Airways: Mild emphysematous changes are present. Mild scarring in the lingula segment of the left upper lobe as well as at the right lung base. Pleura:No pleural effusion. No pneumothorax. Upper Abdomen:Visualized portions of the upper abdominal viscera are unremarkable. Bones:Degenerative changes of the thoracic spine. CT/Low Dose CT Lung Screening IMPRESSION: 1. BASED ON THE ACR LUNG RADS FOR THE MOST SUSPICIOUS NODULE (IF ANY) DESCRIBED IN THIS REPORT, THE OVERALL LUNG RADS SCORE IS 2.2 - BENIGN (BASED ON IMAGING FEATURES OR INDOLENT BEHAVIOR). RECOMMEND 12-MONTH SCREENING LDCT.. 2. SMOKING CESSATION COUNSELING IS RECOMMENDED IF THE PATIENT IS STILL SMOKING. 3. OTHER SIGNIFICANT FINDINGSNone. One or more dose reduction techniques were used (e.g., Automated exposure control, adjustment of the mA and/or kV according to patient size, use of iterative reconstruction technique). The following information is provided for reference:Lung-RADS 2022 Assessment Categories. Additional information involving Lung-RADS is available at www.acr.org. 0-INCOMPLETE 1-NEGATIVE:No nodules or definitely benign nodules. Complete, central, popcorn, or centric ring calcifications OR fat containing 2-BENIGN APPEARANCE (based on imaging features or indolent behavior). Juxtapleural nodule: < 10mm AND solid; smooth margins; oval, entiform, or triangular shape Solid nodule: <6mm at baseline or new< 4mm Part solid Nodule: < 6mm total mean diameter at baseline Nonsolid nodule:(GGN) < 30mm OR >=30mm stable or slowly growing Airway nodule, subsegmental at baseline, new, or stable Category 3 nodule stable or decreased in size at 6-month follow-up CT or Category 3 or 4A nodules that resolve on follow-up OR category 4B findings proven to be benign following diagnotic work up. 3 - Probably Benign (Based on imaging features or behavior) Solid Nodule: >= 6 to <8mm at baseline OR new 4 to <6mm Part-solid nodule: >= 6mm toal mean diam. with solid component <6mm at baseline OR new < 6mm total mean diam. Non-solid nodule: GGN >= 30mm at baseline or new Atypical pulmonary cyst: Growing cystic component (mean diam.) of thick-walled cyst Category 4A nodule stable or decreased in size at 3-month follow-up CT (excl.airway). 4A - Suspicious Solid nodule: >=8 to < 15mm at baseline OR growing < 8mm OR new 6 to < 8mm Part solid nodule: >= 6mm total mean diam. w/ solid component >=6mm to < 8mm at baseline OR new or growing < 4mm solid component Airway nodule, segmental or more proximal at baseline or new Atypical pulmonary cyst: Thick-walled OR multilocular at baseline OR becomes multilocular 4B - Very Suspicious Airway nodule, segmental or more proximal, and stable or growing Solid nodule: >= 15mm at baseline OR new or growing >= 8mm Part solid nodule: Solid component >= 8mm OR new or growing >= 4mm solid component Atypical pulmonary cyst: Thick-walled with growing wall thickness/nodularity OR Growing multilocular (mean diam.) OR Multilocular with increased loculation or new/increased opacity Slow-growing solid or part solid nodule w/ growth over multiple screening exams 4X - Very Suspicious Category 3 or 4 nodules with additional features that increase the suspicion for lung cancer. S - Clinically Significant or potentially significant findings (non-lung cancer) 3. OTHER SIGNIFICANT FINDINGSNone. One or more dose reduction techniques were used (e.g., Automated exposure control, adjustment of the mA and/or kV according to patient size, use of iterative reconstruction technique). The following information is provided for reference:Lung-RADS 2022 Assessment Categories. Additional information involving Lung-RADS is available at www.acr.org. (more content not included)... Normal [facility] 12 Lead E[place] [facility] [place]-15-2024 12 Lead EKG performed by [facility] [address] [place] [address] 12 Lead EKG performed [place] [facility] 02/15/24 1459 MR#: [id number] Acct: [id number] Name: MARK MARTIN Rep #: [id number] : 1950 74 From: Kd Wolfe MD Attending Dr: Dr. Kd Wolfe MD Status: DEP A MB Ordering Dr: Kd Wolfe MD Date: 02/15/24 Location: [facility] Sex: F C Admitted: BMS/12 Lead EKG performed by [facility] ECG Report Interpretation ------Atrial Rhythm -First degree A-V block P:QRS - 1:1, Abnormal P axis, H Rate 60 Duran = 236Electronically signed on 02/22/2024 at 08:40 by Kd Wolfe Software Version [id number] 02/22/24 0846 Date Kd Wolfe MD CC: Dr. Savage Gilliam MD Date Dictated: 02/15/241458 Date Transcribed: 02/15/241458 Biomedical Field Service Engineer: [place] Signed Normal [facility] Cardiology Visit Reporton Cardiology Visit Report [facility] [address] [place] [address] OFFICE VISIT Date of Service: 02/15/24 MR#: [id number] Acct: [id number] Name: MARK MARTIN Rep #: [id number] : 1950 Provider: Dr. Kd Wolfe MD Age/Sex: 74/F [place] [facility] Status: Signed HPI HPI History of Present Illness Details: 74-year-old lady with an extensive cardiac history including hypertension renal artery stenosis coronary artery disease status post three-vessel coronary bypass surgery in July 2022 with a left internal mammary artery to the second diagonal vessel, saphenous vein graft to the lateral branch of the circumflex artery and saphenous vein graft to posterior descending artery of the right coronary artery. She did develop postoperative atrial fibrillation and was put on amiodarone as well as anticoagulation. She underwent DC cardioversion for recurrent atrial fibrillation in April 2023. During her bypass surgery she also had an aortic valve replacement due to moderate aortic insufficiency with a 23 mm Castro Magna Ease bioprosthetic valve. She has also had significant problems with hypertension as well as compliance. It is not clear whether she has had a cerebrovascular accident or not. She has presented to the emergency room here in [place] in February of last year with strokelike symptoms she was not thought to be a candidate for thrombolysis. She had been subtherapeutic on her INR's. She denies any dizziness or diaphoresis near syncope or syncope though for reasons that are not entirely clear she had an event monitor placed in April 2023 presumably after her cardioversion which demonstrated predominantly sinus bradycardia with a first- degree AV block average heart rate of 56 bpm and pauses between 3.2 to 3.8 seconds. He did not correlate with any symptomatology but at that time she was noted to be on amiodarone. She has otherwise been compliant with her medications. She presents today for reevaluation of her cardiac condition. She denies any chest pain she has not had any syncopal episodes she has mild shortness of breath with exertion. Her physical exam demonstrates clear lung peacock regular rate and rhythm with 2/6 systolic murmur noted left sternal border and no pedal edema. Her electrocardiogram demonstrates sinus rhythm with a rate of 60 bpm with a first-degree AV block. 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: No Accompanied by: Self Is patient in pain?: No Allergies mayonnaise Allergy (Severe, Verified 02/15/24 15:02) Anaphylaxis ibuprofen Allergy (Verified 02/15/24 15:02) Rash naproxen (From Naprosyn) Allergy (Verified 02/15/24 15:02) Rash codeine Adverse Reaction (Verified 02/15/24 15:02) Vertigo Medications ???Medication ???Instructions ???Recorded ???Confirmed ???Type calcium carbonate-vitamin D3 1 tab PO DAILY 02/11/23 02/07/24 History multivitamin (Daily Multi-Vitamin 1 tab PO DAILY 02/11/23 02/07/24 History tablet) warfarin 3 mg tablet 4.5 mg PO DAILY 02/11/23 01/17/24 History aspirin 81 mg chewable tablet 81 mg PO BREAKFAST #1 TAB 02/13/23 02/07/24 Rx amlodipine 10 mg tablet 10 mg PO QDAY 01/19/24 02/07/24 History atorvastatin 40 mg tablet 40 mg PO QDAY 02/15/24 History carbamazepine 200 mg tablet 200 mg PO .qid 02/15/24 History carvedilol 25 mg tablet 25 mg PO BID #60 tabs 02/15/24 02/15/24 Rx hydralazine 100 mg tablet 100 mg PO TID 30 days #90 tabs 02/15/24 02/15/24 Rx valsartan 160 mg tablet 160 mg PO BID 02/15/24 History Have you fallen in the past year?: Yes [facility] Medical History (Updated 02/15/24 @ 15:[address] Kd Wolfe MD) TIA (transient ischemic attack) Thrombocytopenia SOB (shortness of breath) Vasovagal near syncope Bradycardia Renal artery stenosis Aortic valve stenosis History of transcatheter aortic valve replacement (TAVR) (07/09/22) History of cardioversion (04/14/23) Perforated tympanic membrane Chronic headaches Generalized weakness Multiple falls Carotid artery stenosis Orthostatic hypotension Hyperlipidemia Epilepsy Tobacco abuse Acute stroke due to ischemia FPC (current) use of 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 Atrial fibrillation Rheumatic fever Mitral prolapse Right renal artery stenosis 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 Anemia Depression Rheumatoid arthritis GERD (gastroesophageal reflux disease) COPD (chronic obstructive pulmonary disease) Deafness in left ear Myocardial infarct Contusion of face Unsteady gait Abrasion of left ring finger Diabetes HTN (hypertension) Surg (more content not included)... Normal [facility] 12 Lead EKGon 02-07-2024 12 Lead EKG [facility] Cardiovascular Services [address] [place] [address] 12 Lead EKG 02/07/24 1147 MR#: [id number] Acct: [id number] Name: MARK MARTIN Rep #: [id number] : 1950 74 From: Kd Wolfe MD Attending Dr: Status: DEP ER Ordering Dr: Jacob Morgan DO Date: 02/07/24 Location: ED Sex: F C Admitted: Test Reason : REPEAT Blood Pressure : */* mmHG Vent. Rate : 58 BPM Atrial Rate : 58 BPM P-R Int : 236 ms QRS Dur : 92 ms QT Int : 524 ms P-R-T Axes : 76 20 88 degrees QTcB Int : 514 ms Sinus bradycardia with 1st degree A-V block Minimal voltage criteria for LVH, may be normal variant ( [place]wood product ) Prolonged QT Abnormal ECG Confirmed by KD WOLFE MD ([id number]), editor department JONY ALVAREZ ([id number]) on 02/09/2024 6:11:17 AM Referred By: Confirmed By: KD WOLFE MD 02/09/24610 Date Kd Wlofe MD CC: Dr. Savage Gilliam MD; Dr. Jacob Morgan DO Signed Normal [facility] 12 Lead EKG [facility] Cardiovascular Services [address] [place] [address] 12 Lead EKG 02/07/24 0915 MR#: [id number] Acct: [id number] Name: MARK MARTIN Rep #: [id number] : 1950 74 From: Kd Wolfe MD Attending Dr: Status: DEP ER Ordering Dr: Jacob Morgan DO Date: 02/07/24 Location: ED Sex: F C Admitted: Test Reason : DIZZY Blood Pressure : */* mmHG Vent. Rate : 39 BPM Atrial Rate : 39 BPM P-R Int : 286 ms QRS Dur : 100 ms QT Int : 542 ms P-R-T Axes : 39 34 94 degrees QTcB Int : 436 ms Critical Test Result: Low HR Marked sinus bradycardia with marked sinus arrhythmia with 1st degree A-V block Nonspecific ST and T wave abnormality Abnormal ECG Confirmed by KD WOLFE MD ([id number]), editor department JONY ALVAREZ ([id number]) on 02/09/2024 6:11:04 AM Referred By: LIDIA/REGI Confirmed By: KD WOLFE MD 02/09/24610 Date Kd Wolfe MD CC: Dr. Savage Gilliam MD; Dr. Jacob Morgan DO Signed Normal [facility] Absolute neutrophil countOrd ered By: Jacob Morgan on 02-07-2024 Neutrophils (Bld) [#/Vol] 5.5 10*3/uL 2.0-7.7 [facility] Basic Metabolic Profile (BMP )on 02-07-2024 BUN/CRE 11.8 RATIO Normal 10-20 [facility] Comment on above: Order Comment: 1 Y Performed By: #### L 300.3900, L500.2500, L501.5425, L100.0100 #### [facility] Laboratory [address] [place], [address] CA,Total 8.2 mg/dL Low 8.5-10.1 [facility] Comment on above: Order Comment: 1 Y Performed By: #### L 300.3900, L500.2500, L501.5425, L100.0100 #### [facility] Laboratory [address] [place], [address] Chloride [Moles/Vol] 104 mmol/L Normal 98-107 [facility] Comment on above: Order Comment: 1 Y Performed By: #### L 300.3900, L500.2500, L501.5425, L100.0100 #### [facility] Laboratory [address] [place], [address] CO2 [Moles/Vol] 30.0 mmol/L Normal 21.0-32.0 [facility] Comment on above: Order Comment: 1 Y Performed By: #### L 300.3900, L500.2500, L501.5425, L100.0100 #### [facility] Laboratory [address] [place], [address] Creatinine [Mass/Vol] 0.68 mg/dL Normal 0.55-1.02 [facility] Comment on above: Order Comment: 1 Y Result Comment: The validity of the calculated GFR GFRAA in patients over 70 years has not been determined. Clinical correlation is essential. Performed By: #### L 300.3900, L500.2500, L501.5425, L100.0100 #### [facility] Laboratory [address] [place], [address] ECRCL 48.06 ml/min Normal [facility] Comment on above: Order Comment: 1 Y Performed By: #### L 300.3900, L500.2500, L501.5425, L100.0100 #### [facility] Laboratory [address] [place], [address] EST GFR - AA 109 mL/min Normal >60 [facility] Comment on above: Order Comment: 1 Y Result Comment: Afri can Moldovan GFR Calc Performed By: #### L 300.3900, L500.2500, L501.5425, L100.0100 #### [facility] Laboratory [address] [place], [address] GAP 5 Normal 5-15 [facility] Comment on above: Order Comment: 1 Y Performed By: #### L 300.3900, L500.2500, L501.5425, L100.0100 #### [facility] Laboratory [address] [place], [address] GFR/1.73 sq M.predicted among non-blacks MDRD (S/P/Bld) [Vol rate/Area] 90 mL/min/{1.73_m2} Normal >60 [facility] Comment on above: Order Comment: 1 Y Result Comment: Non- GFR Calc Performed By: #### L 300.3900, L500.2500, L501.5425, L100.0100 #### [facility] Laboratory [address] [place], [address] Glucose [Mass/Vol] 164 mg/dL High 74-106 [facility] Comment on above: Order Comment: 1 Y Result Comment: Fast ing Glucose result greater than or equal to 126 mg/dL suggests DIABETES MELLITUS per A.D.A. criteria. Performed By: #### L 300.3900, L500.2500, L501.5425, L100.0100 #### [facility] Laboratory [address] [place], [address] Potassium [Moles/Vol] 3.5 mmol/L Normal 3.5-5.1 [facility] Comment on above: Order Comment: 1 Y Performed By: #### L 300.3900, L500.2500, L501.5425, L100.0100 #### [facility] Laboratory [address] [place], [address] Sodium [Moles/Vol] 138 mmol/L Normal 136-145 [facility] Comment on above: Order Comment: 1 Y Performed By: #### L 300.3900, L500.2500, L501.5425, L100.0100 #### [facility] Laboratory [address] [place], [address] Urea nitrogen [Mass/Vol] 8 mg/dL Normal 7-18 [facility] Comment on above: Order Comment: 1 Y Performed By: #### L 300.3900, L500.2500, L501.5425, L100.0100 #### [facility] Laboratory [address] [place], [address] Basophil percentageOrdered B y: Jacob Morgan on 02-07-2024 Basophils/100 WBC (Bld) 1.0 % 0-1 [facility] Blood urea nitrogen (BUN)/cr eatinine ratioOrdered By: Jacob Morgan on 02-07-2024 Urea nitrogen/Creatinine [Mass ratio] 11.8 mg/mg 10-20 [facility] CBC W/Diff, Automatedon 01-09 Absolute Lymph 1.61 X10 3/uL Normal 0.83-4.51 [facility] Comment on above: Performed By: #### L 300.3900, L500.2500, L501.5425, L100.0100 #### [facility] Laboratory [address] [place], [address] Absolute Neut 5.5 X10 3/uL Normal 2.0-7.7 [facility] Comment on above: Performed By: #### L 300.3900, L500.2500, L501.5425, L100.0100 #### [facility] Laboratory [address] [place], [address] Basophils/100 WBC (Bld) 1.0 % Normal 0-1 [facility] Comment on above: Performed By: #### L 300.3900, L500.2500, L501.5425, L100.0100 #### [facility] Laboratory [address] [place], [address] Eosinophils/100 WBC (Bld) 0.0 % Normal 0-5 [facility] Comment on above: Performed By: #### L 300.3900, L500.2500, L501.5425, L100.0100 #### [facility] Laboratory [address] [place], [address] Erythrocyte distribution width (RBC) [Ratio] 12.8 % Normal 11.6-14.6 [facility] Comment on above: Performed By: #### L 300.3900, L500.2500, L501.5425, L100.0100 #### [facility] Laboratory [address] [place], [address] Hematocrit (Bld) [Volume fraction] 37.4 % Normal 37-47 [facility] Comment on above: Performed By: #### L 300.3900, L500.2500, L501.5425, L100.0100 #### [facility] Laboratory [address] [place], [address] Hemoglobin (Bld) [Mass/Vol] 12.6 g/dL Normal 12.0-15.0 [facility] Comment on above: Performed By: #### L 300.3900, L500.2500, L501.5425, L100.0100 #### [facility] Laboratory [address] [place], [address] IG% 0.800 Normal 0.0-0.9 [facility] Comment on above: Result Comment: IG% - Immature Granulocytes (promyelocytes, myelocytes and metamyelocytes) > 1% indicates that a LEFT SHIFT is Present. Performed By: #### L 300.3900, L500.2500, L501.5425, L100.0100 #### [facility] Laboratory [address] [place], [address] Lymphocytes/100 WBC (Bld) 20.4 % Normal 19-41 [facility] Comment on above: Performed By: #### L 300.3900, L500.2500, L501.5425, L100.0100 #### [facility] Laboratory [address] [place], [address] MCH (RBC) [Entitic mass] 31.8 pg Normal 27.0-32.0 [facility] Comment on above: Performed By: #### L 300.3900, L500.2500, L501.5425, L100.0100 #### [facility] Laboratory [address] [place], [address] MCHC (RBC) [Mass/Vol] 33.7 g/dL Normal 32-36 [facility] Comment on above: Performed By: #### L 300.3900, L500.2500, L501.5425, L100.0100 #### [facility] Laboratory [address] [place], [address] MCV (RBC) [Entitic vol] 94.4 fL Normal 81-99 [facility] Comment on above: Performed By: #### L 300.3900, L500.2500, L501.5425, L100.0100 #### [facility] Laboratory [address] [place], [address] Monocytes/100 WBC (Bld) 8.0 % Normal 0-10 [facility] Comment on above: Performed By: #### L 300.3900, L500.2500, L501.5425, L100.0100 #### [facility] Laboratory [address] [place], [address] Neutrophils/100 WBC (Bld) 69.8 % Normal 47-70 [facility] Comment on above: Performed By: #### L 300.3900, L500.2500, L501.5425, L100.0100 #### [facility] Laboratory [address] [place], [address] Nucleated RBC (Bld) [#/Vol] 0 10*3/uL Normal 0-5 [facility] Comment on above: Performed By: #### L 300.3900, L500.2500, L501.5425, L100.0100 #### [facility] Laboratory [address] [place], [address] Platelet mean volume (Bld) [Entitic vol] 10.2 fL Normal 6.2-12.0 [facility] Comment on above: Performed By: #### L 300.3900, L500.2500, L501.5425, L100.0100 #### [facility] Laboratory [address] [place], [address] Platelets (Bld) [#/Vol] 200 10*3/uL Normal 150-450 [facility] Comment on above: Performed By: #### L 300.3900, L500.2500, L501.5425, L100.0100 #### [facility] Laboratory [address] [place], [address] RBC (Bld) [#/Vol] 3.96 10*6/uL Low 4.2-5.4 [facility] Comment on above: Performed By: #### L 300.3900, L500.2500, L501.5425, L100.0100 #### [facility] Laboratory [address] [place], [address] RDW SD 44.1 fl High 35.1-43.9 [facility] Comment on above: Performed By: #### L 300.3900, L500.2500, L501.5425, L100.0100 #### [facility] Laboratory [address] [place], [address] WBC (Bld) [#/Vol] 7.9 10*3/uL Normal 4.4-11.0 [facility] Comment on above: Performed By: #### L 300.3900, L500.2500, L501.5425, L100.0100 #### [facility] Laboratory [address] [place], [address] Carbon dioxide measurementOr dered By: Jacob Morgan on 02-07-2024 CO2 [Moles/Vol] 30.0 mmol/L 21.0-32.0 [facility] Chest 1 View (Portable)on Chest 1 View (Portable) [facility] Imaging Services [address] [facility] [place] [address] Chest 1 View (Portable) MR#: [id number] Acct: [id number] Name: MARK MARTIN Rep #: [id number] : 1950 F 74 From: Juan Diego coffey MD PCP: Dr. Savage Gilliam MD Status: REG ER Study: Chest 1 View (Portable) Date of Exam: 02/07/24 Exam# [id number] Ordering Dr: Jacob Morgan DO [id number] STUDY: X-RAY CHEST REASON FOR EXAM: Female, 74 years old. chest pain TECHNIQUE: Single AP portable view of the chest. COMPARISON: January 17, 2024 FINDINGS: 1. No consolidation or pleural effusion or pneumothorax. 2. Chronic COPD/cystic emphysematous changes/interstitial fibrosis There is normal heart size. Stable CABG clips 3. Stable mediastinum and osseous structures 4. No pneumothorax. There is no demonstrated abnormality of the visualized soft tissue structures of the upper abdomen. RAD/Chest 1 View (Portable) IMPRESSION: Degenerative changes, as described above. No demonstrated acute cardiopulmonary process. Electronically Signed: Juan Diego Blas MD at 10:35 EST , CC: Dr. Savage Gilliam MD; Dr. Jacob Morgan DO Biomedical Field Service Engineer: Signed Normal [facility] Chloride measurementOrdered By: Jacob Morgan on 02-07-2024 Chloride [Moles/Vol] 104 mmol/L 98-107 [facility] Emergency Department Summary on 02-07-2024 Emergency Department Summary [facility] Medical Records Department [address] [place] [address] Emergency Department Summary 02/07/24 MR#: [id number] Acct: [id number] Name: MARK MARTIN Rep #: [id number] : 1950 74 From: Jacob Morgan DO PCP: Dr. Savage Gilliam MD Status:DEP ER Location: ED HPI History of Present Illness Chief Complaint: Syncope [facility] Medical History (Updated 02/07/24 @ 12:[address] 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 Atrial fibrillation Rheumatic fever Mitral prolapse Right renal artery stenosis 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 Anemia Depression Rheumatoid arthritis GERD (gastroesophageal reflux disease) COPD (chronic obstructive pulmonary disease) Deafness in left ear Myocardial infarct Contusion of face Unsteady gait Abrasion of left ring finger Diabetes HTN (hypertension) Home Medications ???Medication ???Instructions ???Recorded ???Last Taken ???Type amiodarone 200 mg tablet 200 mg PO DAILY 02/11/23 Unknown History calcium carbonate-vitamin D3 1 tab PO DAILY 02/11/23 Unknown History multivitamin (Daily Multi-Vitamin 1 tab PO DAILY 02/11/23 Unknown History tablet) warfarin 3 mg tablet 4.5 mg PO DAILY 02/11/23 Unknown History aspirin 81 mg chewable tablet 81 mg PO BREAKFAST #1 TAB 02/13/23 Unknown Rx clonidine HCl 0.2 mg tablet 0.2 mg PO TID 30 days #90 tabs 01/18/24 Unknown Rx hydralazine 50 mg tablet 50 mg PO TID 30 days #90 tabs 01/18/24 Unknown Rx amlodipine 10 mg tablet 10 mg PO QDAY 01/19/24 Unknown History carbamazepine 200 mg tablet 200 mg PO BID 01/19/24 Unknown History carvedilol 25 mg tablet 12.5 mg PO BID 01/19/24 Unknown History isosorbide mononitrate 60 mg 60 mg PO QDAY 01/19/24 Unknown History tablet,extended release 24 hr valsartan 160 mg tablet 160 mg PO QDAY 01/19/24 Unknown History Allergy/AdvReac Type Severity Reaction Status Date / Time [facility] Allergy Severe Anaphylaxis Verified 01/19/24 13:33 ibuprofen Allergy Rash Verified 01/17/24 07:10 naproxen (From Naprosyn) Allergy Rash Verified 01/17/24 07:10 codeine AdvReac Vertigo Verified 01/19/24 13:33 Family History (Updated 01/19/24 @ 13:24 by Sherron Sabillon RN) Brother Cancer CAD (coronary artery disease) Diabetes Heart disease Mother Diabetes Hypertension Heart disease Father Hypertension Myocardial infarction Heart disease Son Hypertension Surgical History (Updated 01/19/24 @ 13:31 by Sherron Sabillon RN) History of stapedectomy Hx of hernia repair Hx of total knee arthroplasty (02/21/20) Hx of CABG (07/09/22) S/P left knee arthroscopy Aortic valve replaced Social History (Updated 01/19/24 @ 13:23 by Sherron Sabillon RN) Smoking Status: Light Smoker (<10/day) Tobacco: How many years used: 20 EXAM Physical Exam Const Vital Signs: 02/07/24 09:05 02/07/24 09:28 02/07/24 11:05 Temperature 97.9 F Temperature Source Oral Pulse Rate 68 44 L Respiratory Rate 16 19 H Blood Pressure 119/85 H 153/78 H Blood Pressure Mean 96 103 Pulse Ox 94 99 98 Oxygen Delivery Method Room Air Room Air 02/07/24 13:00 02/07/24 13:13 Temperature 97.8 F Temperature Source Pulse Rate 38 L 45 L Respiratory Rate 19 H 20 H Blood Pressure 138/72 H 143/72 H Blood Pressure Mean 94 95 Pulse Ox 100 100 Oxygen Delivery Method MDM MDM MDM Narrative Medical decision making narrative: HISTORY OF PRESENT ILLNESS: 74-year-old female presents with concern for syncope versus near syncope. Per EMS patient's family called because she passed out. However the patient says she never passed out. Patient states she just put her head down because she felt a little woozy. The patient further states [close REVIEW OF SYSTEMS: Pertinent positives: Syncope versus near syncope Pertinent negatives: Chest pain, shortness of breath, leg swelling PHYSICAL EXAM: Nursing triage notes reviewed, Vital signs reviewed Constitutional: please see mdm HENT: MMM Eyes: Pupils equal round and reactive to light, Extraocular muscles intact Neck: No stridor, no JVD, full neck ROM Lungs: Clear to auscultation, No wheezing or rales. No increased work of breathing, no conversational dyspnea, no accessory muscle use, no nasal flaring. No respiratory distress noted Hea (more content not included)... Normal [facility] Eosinophil percentageOrdered By: Jacob Morgan on 02-07-2024 Eosinophils/100 WBC (Bld) 0.0 % 0-5 [facility] Erythrocyte distribution wid th ratioOrdered By: Jacob Morgan on 02-07-2024 Erythrocyte distribution width (RBC) [Ratio] 12.8 % 11.6-14.6 [facility] Erythrocyte distribution wid th standard deviationOrdered By: Jacob Morgan on 02-07-2024 Erythrocyte distribution width (RBC) [Entitic vol] 44.1 fL High 35.1-43.9 [facility] Estimated glomerular filtrat ion rate (GFR) AmericanOrdered By: Jacob Morgan on 02-07-2024 Estimated GFR (MDRD) Amer 109 mL/min >60 [facility] Comment on above: GFR Calc Estimation of creatinine sharon aranceOrdered By: Jacob Morgan on 02-07-2024 Estimated Creatinine Clearance Calc 48.06 ml/min [facility] Glomerular filtration rate ( GFR) estimationOrdered By: Jacob Morgan on 02-07-2024 Estimated GFR (MDRD) Non-Af Amer 90 mL/min >60 [facility] Comment on above: Non- GFR Calc Glucose measurementOrdered B y: Jacob Morgan on 02-07-2024 Glucose [Mass/Vol] 164 mg/dL High 74-106 [facility] Comment on above: Fasting Glucose resu lt greater than or equal to 126 mg/dL suggests DIABETES MELLITUS per A.D.A. criteria. Hematocrit Auto (Bld) [Volum e fraction]Ordered By: Jacob Morgan on 02-07-2024 Hematocrit (Bld) [Volume fraction] 37.4 % 37-47 [facility] Hemoglobin measurementOrdere d By: Jacob Morgan on 02-07-2024 Hemoglobin (Bld) [Mass/Vol] 12.6 g/dL 12.0-15.0 [facility] Immature granulocytes/100 WB C Auto (Bld)Ordered By: Jacob Morgan on 02-07-2024 Immature granulocytes/100 WBC (Bld) 0.800 % 0.0-0.9 [facility] Comment on above: IG% - Immature Granu locytes (promyelocytes, myelocytes and metamyelocytes) > 1% indicates that a LEFT SHIFT is Present. International normalized rat io (INR) calculationOrdered By: Jacob Morgan on 02-07-2024 INR Coag (Bld) [Relative time] 1.4 {INR} [facility] L501.4020on 02-07-2024 TROPONIN-I HS 94 pg/mL High 3.0-54.0 [facility] Comment on above: Result Comment: Plea Note: New Test Units and Gender Specific Reference Ranges. For more information see Policy Stat Procedure [place] High Sensitivity Troponin (TNIH) and attachments. Performed By: #### L 501.4020 ####[facility] [id number] [place], [address] L501.5425on 02-07-2024 TROPONIN-I HS 110 pg/mL High 3.0-54.0 [facility] Comment on above: Order Comment: 1Y Result Comment: Jamal allen Note: New Test Units and Gender Specific Reference Ranges. For more information see Policy Stat Procedure [place] High Sensitivity Troponin (TNIH) and attachments. Performed By: #### L 300.3900, L500.2500, L501.5425, L100.0100 ####[facility] [id number] [place], [address] Lymphocytes Auto (Unsp spec) [#/Vol]Ordered By: Jacob Morgan on 02-07-2024 Lymphocytes (Bld) [#/Vol] 1.61 10*3/uL 0.83-4.51 [facility] Lymphocytes/100 WBC Auto (Un sp spec)Ordered By: Jacob Morgan on 02-07-2024 Lymphocytes/100 WBC (Bld) 20.4 % 19-41 [facility] MCV (mean corpuscular volume ) determinationOrdered By: Jacob Morgan on 02-07-2024 MCV (RBC) [Entitic vol] 94.4 fL 81-99 [facility] Mean corpuscular hemoglobin (MCH) determinationOrdered By: Jacob Morgan on 02-07-2024 MCH (RBC) [Entitic mass] 31.8 pg 27.0-32.0 [facility] Mean corpuscular hemoglobin concentration (MCHC) determinationOrdered By: Jacob Morgan on 02-07-2024 MCHC (RBC) [Mass/Vol] 33.7 g/dL 32-36 [facility] Mean platelet volume determi nationOrdered By: Jacob Morgan on 02-07-2024 Platelet mean volume (Bld) [Entitic vol] 10.2 fL 6.2-12.0 [facility] Monocyte percentageOrdered B y: Jacob Morgan on 02-07-2024 Monocytes/100 WBC (Bld) 8.0 % 0-10 [facility] Neutrophil percentageOrdered By: Jacob Morgan on 02-07-2024 Neutrophils/100 WBC (Bld) 69.8 % 47-70 [facility] Nucleated red blood cell per centageOrdered By: Jacob Morgan on 02-07-2024 Nucleated RBC/100 WBC (Bld) [Ratio] 0 % 0-5 [facility] Platelet countOrdered By: Braeden Morgan on 02-07-2024 Platelets (Bld) [#/Vol] 200 10*3/uL 150-450 [facility] Potassium measurementOrdered By: Jacob Morgan on 02-07-2024 Potassium [Moles/Vol] 3.5 mmol/L 3.5-5.1 [facility] Prothrombin Time w/INRon INR Coag (PPP) [Relative time] 1.4 {INR} Normal [facility] Comment on above: Performed By: #### L 300.3900, L500.2500, L501.5425, L100.0100 #### [facility] Laboratory [address] [place], [address] PT Coag (PPP) [Time] 17.2 s High 11.7-14.9 [facility] Comment on above: Performed By: #### L 300.3900, L500.2500, L501.5425, L100.0100 #### [facility] Laboratory [address] [place], [address] Prothrombin timeOrdered By: Jacob Morgan on 02-07-2024 PT Coag (PPP) [Time] 17.2 s High 11.7-14.9 [facility] RBC Auto (Bld) [#/Vol]Ordere d By: Jacob Morgan on 02-07-2024 RBC (Bld) [#/Vol] 3.96 10*6/uL Low 4.2-5.4 [facility] Serum anion gap measurementO rdered By: Jacob Morgan on 02-07-2024 Anion gap [Moles/Vol] 5 mmol/L 5-15 [facility] Serum or plasma calcium tres urement (mass/volume)Ordered By: Jacob Morgan on 02-07-2024 Calcium [Mass/Vol] 8.2 mg/dL Low 8.5-10.1 [facility] Serum or plasma creatinine m easurement (mass/volume)Ordered By: Jacob Morgan on 02-07-2024 Creatinine [Mass/Vol] 0.68 mg/dL 0.55-1.02 [facility] Comment on above: The validity of the calculated GFR & GFRAA in patients over 70 years has not been determined. Clinical correlation is essential. Serum or plasma urea nitroge n measurement (mass/volume)Ordered By: Jacob Morgan on 02-07-2024 Urea nitrogen [Mass/Vol] 8 mg/dL 7-18 [facility] Sodium levelOrdered By: Marysol Morgan on 02-07-2024 Sodium [Moles/Vol] 138 mmol/L 136-145 [facility] Troponin IOrdered By: Jacob Morgan on 02-07-2024 Troponin I High Sensitivity 94 pg/mL High 3.0-54.0 [facility] Comment on above: Please Note: [place] t Units and Gender Specific Reference Ranges. For more information see Policy Stat Procedure [place] High Sensitivity Troponin (TNIH) and attachments. White blood cell (WBC) count Ordered By: Jacob Morgan on 02-07-2024 WBC (Bld) [#/Vol] 7.9 10*3/uL 4.4-11.0 [facility] Absolute neutrophil countOrd ered By: Sukumar Eddy on 01-18-2024 Neutrophils (Bld) [#/Vol] 4.3 10*3/uL 2.0-7.7 [facility] Basic Metabolic Profile (BMP )on 01-18-2024 BUN/CRE 22.1 RATIO High 10-20 [facility] Comment on above: Performed By: #### L 500.2500, L100.0100 ####[facility] [id number] [place], [address] CA,Total 8.9 mg/dL Normal 8.5-10.1 [facility] Comment on above: Performed By: #### L 500.2500, L100.0100 ####[facility] [address] [place], [address] Chloride [Moles/Vol] 105 mmol/L Normal 98-107 [facility] Comment on above: Performed By: #### L 500.2500, L100.0100 ####[facility] [address] [place], [address] CO2 [Moles/Vol] 30.0 mmol/L Normal 21.0-32.0 [facility] Comment on above: Performed By: #### L 500.2500, L100.0100 ####[facility] [address] [place], [address] Creatinine [Mass/Vol] 0.63 mg/dL Normal 0.55-1.02 [facility] Comment on above: Result Comment: The validity of the calculated GFR GFRAA in patients over 70 years has not been determined. Clinical correlation is essential. Performed By: #### L 500.2500, L100.0100 ####[facility] [address] [place], [address] ECRCL 48.80 ml/min Normal [facility] Comment on above: Performed By: #### L 500.2500, L100.0100 ####[facility] [address] [place], [address] EST GFR - AA 118 mL/min Normal >60 [facility] Comment on above: Result Comment: Afri can Moldovan GFR Calc Performed By: #### L 500.2500, L100.0100 ####[facility] [address] [place], [address] GAP 5 Normal 5-15 [facility] Comment on above: Performed By: #### L 500.2500, L100.0100 ####[facility] [address] [place], [address] GFR/1.73 sq M.predicted among non-blacks MDRD (S/P/Bld) [Vol rate/Area] 97 mL/min/{1.73_m2} Normal >60 [facility] Comment on above: Result Comment: Non- GFR Calc Performed By: #### L 500.2500, L100.0100 ####[facility] [address] [place], [address] Glucose [Mass/Vol] 124 mg/dL High 74-106 [facility] Comment on above: Result Comment: Fast ing Glucose result from 100 to 125 mg/dL suggests IMPAIRED HOMEOSTASIS per A.D.A. criteria. Performed By: #### L 500.2500, L100.0100 ####[facility] [address] [place], [address] Potassium [Moles/Vol] 3.3 mmol/L Low 3.5-5.1 [facility] Comment on above: Performed By: #### L 500.2500, L100.0100 ####[facility] [address] [place], [address] Sodium [Moles/Vol] 140 mmol/L Normal 136-145 [facility] Comment on above: Performed By: #### L 500.2500, L100.0100 ####[facility] [address] [place], [address] Urea nitrogen [Mass/Vol] 14 mg/dL Normal 7-18 [facility] Comment on above: Performed By: #### L 500.2500, L100.0100 ####[facility] [address] [place], [address] Basophil percentageOrdered B y: Sukumar Eddy on 01-18-2024 Basophils/100 WBC (Bld) 0.8 % 0-1 [facility] Blood urea nitrogen (BUN)/cr eatinine ratioOrdered By: Sukumar Eddy on 01-18-2024 Urea nitrogen/Creatinine [Mass ratio] 22.1 mg/mg High 10-20 [facility] CBC W/Diff, Automatedon 01-07 Absolute Lymph 2.17 X10 3/uL Normal 0.83-4.51 [facility] Comment on above: Performed By: #### L 500.2500, L100.0100 ####[facility] [address] [place], [address] Absolute Neut 4.3 X10 3/uL Normal 2.0-7.7 [facility] Comment on above: Performed By: #### L 500.2500, L100.0100 ####[facility] [address] [place], [address] Basophils/100 WBC (Bld) 0.8 % Normal 0-1 [facility] Comment on above: Performed By: #### L 500.2500, L100.0100 ####[facility] [address] [place], [address] Eosinophils/100 WBC (Bld) 0.0 % Normal 0-5 [facility] Comment on above: Performed By: #### L 500.2500, L100.0100 ####[facility] [address] [place], [address] Erythrocyte distribution width (RBC) [Ratio] 12.9 % Normal 11.6-14.6 [facility] Comment on above: Performed By: #### L 500.2500, L100.0100 ####[facility] [address] [place], [address] Hematocrit (Bld) [Volume fraction] 38.3 % Normal 37-47 [facility] Comment on above: Performed By: #### L 500.2500, L100.0100 ####[facility] [address] [place], [address] Hemoglobin (Bld) [Mass/Vol] 13.1 g/dL Normal 12.0-15.0 [facility] Comment on above: Performed By: #### L 500.2500, L100.0100 ####[facility] [address] [place], [address] IG% 0.600 Normal 0.0-0.9 [facility] Comment on above: Result Comment: IG% - Immature Granulocytes (promyelocytes, myelocytes and metamyelocytes) > 1% indicates that a LEFT SHIFT is Present. Performed By: #### L 500.2500, L100.0100 ####[facility] [address] [place], [address] Lymphocytes/100 WBC (Bld) 30.1 % Normal 19-41 [facility] Comment on above: Performed By: #### L 500.2500, L100.0100 ####[facility] [address] [place], [address] MCH (RBC) [Entitic mass] 31.7 pg Normal 27.0-32.0 [facility] Comment on above: Performed By: #### L 500.2500, L100.0100 ####[facility] [address] [place], [address] MCHC (RBC) [Mass/Vol] 34.2 g/dL Normal 32-36 [facility] Comment on above: Performed By: #### L 500.2500, L100.0100 ####[facility] [address] [place], [address] MCV (RBC) [Entitic vol] 92.7 fL Normal 81-99 [facility] Comment on above: Performed By: #### L 500.2500, L100.0100 ####[facility] [address] [place], [address] Monocytes/100 WBC (Bld) 9.7 % Normal 0-10 [facility] Comment on above: Performed By: #### L 500.2500, L100.0100 ####[facility] [address] [place], [address] Neutrophils/100 WBC (Bld) 58.8 % Normal 47-70 [facility] Comment on above: Performed By: #### L 500.2500, L100.0100 ####[facility] [address] [place], [address] Nucleated RBC (Bld) [#/Vol] 0 10*3/uL Normal 0-5 [facility] Comment on above: Performed By: #### L 500.2500, L100.0100 ####[facility] [address] [place], [address] Platelet mean volume (Bld) [Entitic vol] 10.3 fL Normal 6.2-12.0 [facility] Comment on above: Performed By: #### L 500.2500, L100.0100 ####[facility] [address] [place], [address] Platelets (Bld) [#/Vol] 198 10*3/uL Normal 150-450 [facility] Comment on above: Performed By: #### L 500.2500, L100.0100 ####[facility] [address] [place], [address] RBC (Bld) [#/Vol] 4.13 10*6/uL Low 4.2-5.4 [facility] Comment on above: Performed By: #### L 500.2500, L100.0100 ####[facility] [address] [place], [address] RDW SD 43.9 fl Normal 35.1-43.9 [facility] Comment on above: Performed By: #### L 500.2500, L100.0100 ####[facility] [address] [place], [place], [address] WBC (Bld) [#/Vol] 7.2 10*3/uL Normal 4.4-11.0 [facility] Comment on above: Performed By: #### L 500.2500, L100.0100 ####[facility] [address] [place], [address] Carbon dioxide measurementOr dered By: Sukumar Eddy on 01-18-2024 CO2 [Moles/Vol] 30.0 mmol/L 21.0-32.0 [facility] Chloride measurementOrdered By: Sukumar Eddy on 01-18-2024 Chloride [Moles/Vol] 105 mmol/L 98-107 [facility] Discharge Instructionon 01-07 Discharge Instruction [facility] Medical Records Department [address] [place] [address] Instructions for Home/Discharge Instructions 01/18/24 0933 MR#: [id number] Acct: [id number] Name: MARK MARTIN Rep #: [id number] : 1950 73 From: Sukumar Eddy MD PCP: Dr. Savage Gilliam MD Status:ADM LARY Discharge Instructions Diet Discharge Diet: Low fat / Low cholesterol DC O2, CPAP, BIPAP needs Additional Home O2 Discharge instructions: No Dressing / Incision Discharge Activity: Return to Normal Activity Dressing / Incision Call your doctor if you observe: Fever of 101 or Higher, Shortness of breath, Dizziness, Fainting spells, Swelling in the ankles, Chest pain and Increased palpitations (irregular heartbeat) Follow Up Care Test Results: Test results from this visit will be discussed in further detail at your follow-up appointment, if applicable. Discharge Plan Admission Admit Date/Time: 01/17/24 11:18 Attending Provider: Sukumar Eddy Primary Care Provider: Savage Gilliam Discharge Orders/Prescriptions Prescriptions: New clonidine HCl 0.2 mg Tablet 0.2 mg PO TID 30 Days Qty: 90 0RF hydralazine 50 mg Tablet 50 mg PO TID 30 Days Qty: 90 0RF Continued atorvastatin 40 mg tablet 40 mg PO DAILY carbamazepine 200 mg tablet 200 mg PO .x4 valsartan 160 mg tablet 160 mg PO BID amiodarone 200 mg tablet 200 mg PO DAILY warfarin 3 mg tablet 4.5 mg PO DAILY Patient Comments: TAKE 2 TABLETS BY MOUTH EVERY DAY; 4.5 mg TUESDAY, TUESDAY, TUESDAY (CURRENTLY 02/11/23 Rx Instructions: 4.5 mg TUESDAY, TUESDAY, TUESDAY; 3 mg Sat, Tue, , multivitamin [Daily Multi-Vitamin] Tablet 1 tab PO DAILY calcium carbonate-vitamin D3 [Calcium 500 + D (D3)] 1 tab PO DAILY aspirin 81 mg Tablet,Chewable 81 mg PO BREAKFAST Qty: 1 0RF carvedilol 25 mg Tablet 25 mg PO BID Qty: 60 0RF Discontinued clonidine HCl 0.3 mg tablet 0.3 mg PO TID Patient Comments: TOOK 2X TODAY hydralazine 100 mg tablet 100 mg PO TID Patient Comments: HAS TAKEN 2 DOSES TODAY Referrals / Follow Up: Savage Gilliam MD [Primary Care Provider] - 01/27/24 3:00 pm Disposition Disposition (needs filled in before D/C Order can be placed): Home, Self Care 01/18/24 1309 Sukumar Eddy MD CC: Dr. Savage Gilliam MD Signed Normal [facility] Eosinophil percentageOrdered By: Sukumar Eddy on 01-18-2024 Eosinophils/100 WBC (Bld) 0.0 % 0-5 [facility] Erythrocyte distribution wid th ratioOrdered By: Sukumar Eddy on 01-18-2024 Erythrocyte distribution width (RBC) [Ratio] 12.9 % 11.6-14.6 [facility] Erythrocyte distribution wid th standard deviationOrdered By: Sukumar Eddy on 01-18-2024 Erythrocyte distribution width (RBC) [Entitic vol] 43.9 fL 35.1-43.9 [facility] Estimated glomerular filtrat ion rate (GFR) AmericanOrdered By: Sukumar Eddy on 01-18-2024 Estimated GFR (MDRD) Amer 118 mL/min >60 [facility] Comment on above: GFR Calc Estimation of creatinine sharon aranceOrdered By: Sukumar Eddy on 01-18-2024 Estimated Creatinine Clearance Calc 48.80 ml/min [facility] Glomerular filtration rate ( GFR) estimationOrdered By: Sukumar Eddy on 01-18-2024 Estimated GFR (MDRD) Non-Af Amer 97 mL/min >60 [facility] Comment on above: Non- GFR Calc Glucose measurementOrdered B y: Sukumar Eddy on 01-18-2024 Glucose [Mass/Vol] 124 mg/dL High 74-106 [facility] Comment on above: Fasting Glucose resu lt from 100 to 125 mg/dL suggests IMPAIRED HOMEOSTASIS per A.D.A. criteria. Hematocrit Auto (Bld) [Volum e fraction]Ordered By: Sukumar Eddy on 01-18-2024 Hematocrit (Bld) [Volume fraction] 38.3 % 37-47 [facility] Hemoglobin measurementOrdere d By: Sukumar Eddy on 01-18-2024 Hemoglobin (Bld) [Mass/Vol] 13.1 g/dL 12.0-15.0 [facility] Immature granulocytes/100 WB C Auto (Bld)Ordered By: Sukumar Eddy on 01-18-2024 Immature granulocytes/100 WBC (Bld) 0.600 % 0.0-0.9 [facility] Comment on above: IG% - Immature Granu locytes (promyelocytes, myelocytes and metamyelocytes) > 1% indicates that a LEFT SHIFT is Present. International normalized rat io (INR) calculationOrdered By: Sukumar Eddy on 01-18-2024 INR Coag (Bld) [Relative time] 3.0 {INR} [facility] Lymphocytes Auto (Unsp spec) [#/Vol]Ordered By: Sukumar Eddy on 01-18-2024 Lymphocytes (Bld) [#/Vol] 2.17 10*3/uL 0.83-4.51 [facility] Lymphocytes/100 WBC Auto (Un sp spec)Ordered By: Sukumar Eddy on 01-18-2024 Lymphocytes/100 WBC (Bld) 30.1 % 19-41 [facility] MCV (mean corpuscular volume ) determinationOrdered By: Sukumar Eddy on 01-18-2024 MCV (RBC) [Entitic vol] 92.7 fL 81-99 [facility] Mean corpuscular hemoglobin (MCH) determinationOrdered By: Sukumar Eddy on 01-18-2024 MCH (RBC) [Entitic mass] 31.7 pg 27.0-32.0 [facility] Mean corpuscular hemoglobin concentration (MCHC) determinationOrdered By: Sukumar Eddy on 01-18-2024 MCHC (RBC) [Mass/Vol] 34.2 g/dL 32-36 [facility] Mean platelet volume determi nationOrdered By: Sukumar Eddy on 01-18-2024 Platelet mean volume (Bld) [Entitic vol] 10.3 fL 6.2-12.0 [facility] Monocyte percentageOrdered B y: Sukumar Eddy on 01-18-2024 Monocytes/100 WBC (Bld) 9.7 % 0-10 [facility] Neutrophil percentageOrdered By: Sukumar dEdy on 01-18-2024 Neutrophils/100 WBC (Bld) 58.8 % 47-70 [facility] Nucleated red blood cell per centageOrdered By: Sukumar Eddy on 01-18-2024 Nucleated RBC/100 WBC (Bld) [Ratio] 0 % 0-5 [facility] Platelet countOrdered By: Shelbie Eddy on 01-18-2024 Platelets (Bld) [#/Vol] 198 10*3/uL 150-450 [facility] Potassium measurementOrdered By: Sukumar Eddy on 01-18-2024 Potassium [Moles/Vol] 3.3 mmol/L Low 3.5-5.1 [facility] Prothrombin Time w/INRon INR Coag (PPP) [Relative time] 3.0 {INR} Normal [facility] Comment on above: Performed By: #### L 100.0100, L300.3900, L500.2500 #### [facility] Laboratory [address] [place], [place] [address] [place], [address] PT Coag (PPP) [Time] 31.3 s High 11.7-14.9 [facility] Comment on above: Performed By: #### L 100.0100, L300.3900, L500.2500 #### [facility] Laboratory [address] [place], [address] Prothrombin timeOrdered By: Sukumar Eddy on 01-18-2024 PT Coag (PPP) [Time] 31.3 s High 11.7-14.9 [facility] RBC Auto (Bld) [#/Vol]Ordere d By: Sukumar Eddy on 01-18-2024 RBC (Bld) [#/Vol] 4.13 10*6/uL Low 4.2-5.4 [facility] Serum anion gap measurementO rdered By: Sukumar Eddy on 01-18-2024 Anion gap [Moles/Vol] 5 mmol/L 5-15 [facility] Serum or plasma calcium tres urement (mass/volume)Ordered By: Sukumar Eddy on 01-18-2024 Calcium [Mass/Vol] 8.9 mg/dL 8.5-10.1 [facility] Serum or plasma creatinine m easurement (mass/volume)Ordered By: Sukumar Eddy on 01-18-2024 Creatinine [Mass/Vol] 0.63 mg/dL 0.55-1.02 [facility] Comment on above: The validity of the calculated GFR & GFRAA in patients over 70 years has not been determined. Clinical correlation is essential. Serum or plasma urea nitroge n measurement (mass/volume)Ordered By: Sukumar Eddy on 01-18-2024 Urea nitrogen [Mass/Vol] 14 mg/dL 7-18 [facility] Sodium levelOrdered By: Juan Manuel Eddy on 01-18-2024 Sodium [Moles/Vol] 140 mmol/L 136-145 [facility] White blood cell (WBC) count Ordered By: Sukumar Eddy on 01-18-2024 WBC (Bld) [#/Vol] 7.2 10*3/uL 4.4-11.0 [facility] 12 Lead EKGon 01-17-2024 12 Lead EKG [facility] Cardiovascular Services [address] [place] [address] 12 Lead EKG 01/17/24 0724 MR#: [id number] Acct: [id number] Name: MARK MARTIN Rep #: [id number] : 1950 73 From: Kd Wolfe MD Attending Dr: Dr. Sukumar Eddy MD Status : ADM LARY Ordering Dr: Jose Carrion DO Date: 01/17/24 Location: [facility] Sex: F C Admitted: 01/17/24 Test Reason : FALL Blood Pressure : */* mmHG Vent. Rate : 42 BPM Atrial Rate : 42 BPM P-R Int : 230 ms QRS Dur : 94 ms QT Int : 522 ms P-R-T Axes : * 45 77 degrees QTcB Int : 435 ms Marked sinus bradycardia with 1st degree A-V block with Premature supraventricular complexes Anteroseptal infarct (cited on or before 15-Jan-2023) Abnormal ECG Confirmed by YANETH SAVAGE, KD ([id number]), editor department JONY ALVAREZ ([id number]) on 01/18/2024 12:40:53 PM Referred By: Confirmed By: KD WOLFE MD 01/18/24 1240 Date Kd Wolfe MD CC: Dr. Savage Gilliam MD; Dr. Sukumar Eddy MD; Dr. Jose Carrion DO Signed Normal [facility] Basic Metabolic Profile (BMP )on 01-17-2024 BUN/CRE 12.1 RATIO Normal 11-26 [facility] Comment on above: Order Comment: 'TROP ' Serial specimen #1, #2 or #3: 1 Performed By: #### L 500.2500, L501.4020, L501.5200, L100.0100, L501.9520 ####[facility] [address] [place], [address] CA,Total 9.3 mg/dL Normal 8.5-10.1 [facility] Comment on above: Order Comment: 'TROP ' Serial specimen #1, #2 or #3: 1 Performed By: #### L 500.2500, L501.4020, L501.5200, L100.0100, L501.9520 ####[facility] [address] [place], [address] Chloride [Moles/Vol] 100 mmol/L Normal 98-107 [facility] Comment on above: Order Comment: 'TROP ' Serial specimen #1, #2 or #3: 1 Performed By: #### L 500.2500, L501.4020, L501.5200, L100.0100, L501.9520 ####[facility] [address] [place], [address] CO2 [Moles/Vol] 33.0 mmol/L High 21.0-32.0 [facility] Comment on above: Order Comment: 'TROP ' Serial specimen #1, #2 or #3: 1 Performed By: #### L 500.2500, L501.4020, L501.5200, L100.0100, L501.9520 ####[facility] [address] [place], [address] Creatinine [Mass/Vol] 0.66 mg/dL Normal 0.55-1.02 [facility] Comment on above: Order Comment: 'TROP ' Serial specimen #1, #2 or #3: 1 Result Comment: The validity of the calculated GFR GFRAA in patients over 70 years has not been determined. Clinical correlation is essential. Performed By: #### L 500.2500, L501.4020, L501.5200, L100.0100, L501.9520 ####[facility] [facility] [id number] [place], [address] ECRCL 53.16 ml/min Normal [facility] Comment on above: Order Comment: 'TROP ' Serial specimen #1, #2 or #3: 1 Performed By: #### L 500.2500, L501.4020, L501.5200, L100.0100, L501.9520 ####[facility] [id number] [place], [address] EST GFR - AA 112 mL/min Normal >60 [facility] Comment on above: Order Comment: 'TROP ' Serial specimen #1, #2 or #3: 1 Result Comment: Afri can Moldovan GFR Calc Performed By: #### L 500.2500, L501.4020, L501.5200, L100.0100, L501.9520 ####[facility] [id number] [place], [address] GAP 4 Low 5-15 [facility] Comment on above: Order Comment: 'TROP ' Serial specimen #1, #2 or #3: 1 Performed By: #### L 500.2500, L501.4020, L501.5200, L100.0100, L501.9520 ####[facility] [address] [place], [address] GFR/1.73 sq M.predicted among non-blacks MDRD (S/P/Bld) [Vol rate/Area] 93 mL/min/{1.73_m2} Normal >60 [facility] Comment on above: Order Comment: 'TROP ' Serial specimen #1, #2 or #3: 1 Result Comment: Non- GFR Calc Performed By: #### L 500.2500, L501.4020, L501.5200, L100.0100, L501.9520 ####[facility] [id number] [place], [address] Glucose [Mass/Vol] 122 mg/dL High 74-106 [facility] Comment on above: Order Comment: 'TROP ' Serial specimen #1, #2 or #3: 1 Result Comment: Fast ing Glucose result from 100 to 125 mg/dL suggests IMPAIRED HOMEOSTASIS per A.D.A. criteria. Performed By: #### L 500.2500, L501.4020, L501.5200, L100.0100, L501.9520 ####[facility] [address] [place], [address] Potassium [Moles/Vol] 3.2 mmol/L Low 3.5-5.1 [facility] Comment on above: Order Comment: 'TROP ' Serial specimen #1, #2 or #3: 1 Performed By: #### L 500.2500, L501.4020, L501.5200, L100.0100, L501.9520 ####[facility] [id number] [place], [address] Sodium [Moles/Vol] 137 mmol/L Normal 136-145 [facility] Comment on above: Order Comment: 'TROP ' Serial specimen #1, #2 or #3: 1 Performed By: #### L 500.2500, L501.4020, L501.5200, L100.0100, L501.9520 ####[facility] [id number] [place], [address] Urea nitrogen [Mass/Vol] 8 mg/dL Normal 7-18 [facility] Comment on above: Order Comment: 'TROP ' Serial specimen #1, #2 or #3: 1 Performed By: #### L 500.2500, L501.4020, L501.5200, L100.0100, L501.9520 ####[facility] [address] [place], [address] Bilirubin Test strip Ql (U)O rdered By: Jose Carrion on 01-17-2024 Bilirubin Ql (U) Negative Negative [facility] Brain/Head without Contrasto n 01-17-2024 Brain/Head without Contrast [facility] Imaging Services [address] [place] [address] Brain/Head without Contrast MR#: [id number] Acct: [id number] Name: MARK MARTIN Rep #: [id number] : 1950 F 73 From: Roverto Babin MD PCP: Dr. Savage Gilliam MD Status: REG ER Study: Brain/Head without Contrast Date of Exam: 01/07 Exam# [id number] Ordering Dr: Jose Carrion DO [id number] EXAM: CT HEAD WITHOUT INTRAVENOUS CONTRAST CLINICAL INDICATION: fall, on thinners TECHNIQUE: Multiple axial images were obtained of the head without intravenous contrast. This CT exam was performed using one or more of the following dose reduction techniques: automated exposure control, adjustment of the mA and/or kV according to patient size, and/or use of iterative reconstruction technique. COMPARISON: CT Head dated 12/30/2023 FINDINGS: BRAIN AND EXTRA-AXIAL SPACES: Stable right caudate nucleus and left thalamic chronic lacunar infarcts. No hemorrhage or mass effect. No acute ischemia. Areas of diminished white matter density noted within both cerebral hemispheres suggestive of chronic microvascular change. Small chronic bilateral cerebellar infarcts noted. Prominence of the cortical sulci and ventricles related to volume loss change. Basilar cisterns are patent. BONES/JOINTS: Normal calvarium. SINUSES: No acute sinusitis. MASTOID AIR CELLS: Normal. Clear. CT/Brain/Head without Contrast IMPRESSION: 1. No acute intracranial abnormality. 2. Stable chronic ischemic changes. Electronically Signed: Roevrto Babin MD at 8:32 EST Reading Location ID and State: [address] [place] [address] Tel , Service support , CC: Dr. Savage Gilliam MD; Dr. Jose Carrion DO Biomedical Field Service Engineer: Signed Normal [facility] CBC W/Diff, Automatedon 01-07 Absolute Lymph 2.02 X10 3/uL Normal 0.83-4.51 [facility] Comment on above: Performed By: #### L 500.2500, L501.4020, L501.5200, L100.0100, L501.9520 ####[facility] [address] [place], [address] Absolute Neut 4.2 X10 3/uL Normal 2.0-7.7 [facility] Comment on above: Performed By: #### L 500.2500, L501.4020, L501.5200, L100.0100, L501.9520 ####[facility] [address] [place], [address] Basophils/100 WBC (Bld) 0.9 % Normal 0-1 [facility] Comment on above: Performed By: #### L 500.2500, L501.4020, L501.5200, L100.0100, L501.9520 ####[facility] [address] [place], [address] Eosinophils/100 WBC (Bld) 0.0 % Normal 0-5 [facility] Comment on above: Performed By: #### L 500.2500, L501.4020, L501.5200, L100.0100, L501.9520 ####[facility] [address] [place], [address] Erythrocyte distribution width (RBC) [Ratio] 12.5 % Normal 11.6-14.6 [facility] Comment on above: Performed By: #### L 500.2500, L501.4020, L501.5200, L100.0100, L501.9520 ####[facility] [address] [place], [address] Hematocrit (Bld) [Volume fraction] 40.4 % Normal 37-47 [facility] Comment on above: Performed By: #### L 500.2500, L501.4020, L501.5200, L100.0100, L501.9520 ####[facility] [address] [place], [address] Hemoglobin (Bld) [Mass/Vol] 13.6 g/dL Normal 12.0-15.0 [facility] Comment on above: Performed By: #### L 500.2500, L501.4020, L501.5200, L100.0100, L501.9520 ####[facility] [address] [place], [address] IG% 0.700 Normal 0.0-0.9 [facility] Comment on above: Result Comment: IG% - Immature Granulocytes (promyelocytes, myelocytes and metamyelocytes) > 1% indicates that a LEFT SHIFT is Present. Performed By: #### L 500.2500, L501.4020, L501.5200, L100.0100, L501.9520 ####[facility] [address] [place], [address] Lymphocytes/100 WBC (Bld) 29.5 % Normal 19-41 [facility] Comment on above: Performed By: #### L 500.2500, L501.4020, L501.5200, L100.0100, L501.9520 ####[facility] [address] [place], [address] MCH (RBC) [Entitic mass] 31.1 pg Normal 27.0-32.0 [facility] Comment on above: Performed By: #### L 500.2500, L501.4020, L501.5200, L100.0100, L501.9520 ####[facility] [address] [place], [address] MCHC (RBC) [Mass/Vol] 33.7 g/dL Normal 32-36 [facility] Comment on above: Performed By: #### L 500.2500, L501.4020, L501.5200, L100.0100, L501.9520 ####[facility] [address] [place], [address] MCV (RBC) [Entitic vol] 92.4 fL Normal 81-99 [facility] Comment on above: Performed By: #### L 500.2500, L501.4020, L501.5200, L100.0100, L501.9520 ####[facility] [address] [place], [address] Monocytes/100 WBC (Bld) 8.2 % Normal 0-10 [facility] Comment on above: Performed By: #### L 500.2500, L501.4020, L501.5200, L100.0100, L501.9520 ####[facility] [address] [place], [address] Neutrophils/100 WBC (Bld) 60.7 % Normal 47-70 [facility] Comment on above: Performed By: #### L 500.2500, L501.4020, L501.5200, L100.0100, L501.9520 ####[facility] [address] [place], [address] Nucleated RBC (Bld) [#/Vol] 0 10*3/uL Normal 0-5 [facility] Comment on above: Performed By: #### L 500.2500, L501.4020, L501.5200, L100.0100, L501.9520 ####[facility] [address] [place], [address] Platelet mean volume (Bld) [Entitic vol] 10.0 fL Normal 6.2-12.0 [facility] Comment on above: Performed By: #### L 500.2500, L501.4020, L501.5200, L100.0100, L501.9520 ####[facility] [address] [place], [address] Platelets (Bld) [#/Vol] 212 10*3/uL Normal 150-450 [facility] Comment on above: Performed By: #### L 500.2500, L501.4020, L501.5200, L100.0100, L501.9520 ####[facility] [address] [place], [address] RBC (Bld) [#/Vol] 4.37 10*6/uL Normal 4.2-5.4 [facility] Comment on above: Performed By: #### L 500.2500, L501.4020, L501.5200, L100.0100, L501.9520 ####[facility] [address] [place], [address] RDW SD 42.8 fl Normal 35.1-43.9 [facility] Comment on above: Performed By: #### L 500.2500, L501.4020, L501.5200, L100.0100, L501.9520 ####[facility] [address] [place], [address] WBC (Bld) [#/Vol] 6.8 10*3/uL Normal 4.4-11.0 [facility] Comment on above: Performed By: #### L 500.2500, L501.4020, L501.5200, L100.0100, L501.9520 ####[facility] [address] [place], [address] Chest PA and Lateralon 01-16 Chest PA and Lateral [facility] Imaging Services [address] [place] [address] Chest PA and Lateral MR#: [id number] Acct: [id number] Name: MARK MARTIN Rep #: [id number] : 1950 F 73 From: Roverto Babin MD PCP: Dr. Savage Gilliam MD Status: [facility] ER Study: Chest PA and Lateral Date of Exam: 01/17/24 Exam# [id number] Ordering Dr: Jose Carrion DO [id number] EXAM: XR CHEST, 2 VIEWS CLINICAL INDICATION: chest pain TECHNIQUE: Frontal and lateral views of the chest. COMPARISON: XR Chest dated 12/30/2023 FINDINGS: LUNGS AND PLEURAL SPACES: Normal. No consolidation or edema. No pneumothorax. No effusion. HEART: Stable borderline cardiomegaly. MEDIASTINUM: No mediastinal or hilar mass. BONES/JOINTS: No acute abnormality. TUBES, LINES AND DEVICES: Epicardial pacemaker wires are noted as well as aortic valve prosthesis. RAD/Chest PA and Lateral IMPRESSION: No acute cardiopulmonary abnormality. No interval change. Electronically Signed: Roverto Babin MD at 8:48 EST Reading Location ID and State: [address] [place] [address] Tel , Service support , CC: Dr. Savage Gilliam MD; Dr. Jose Carrion DO Biomedical Field Service Engineer: Signed Normal [facility] Emergency Department Summary on 01-17-2024 Emergency Department Summary [facility] Medical Records Department [address] [place] [address] Emergency Department Summary 01/17/24 MR#: [id number] Acct: [id number] Name: MARK MARTIN Rep #: [id number] : 1950 73 From: Jose Carrion DO PCP: Dr. Savage Gilliam MD Status:REG ER Location: ED HPI History of Present Illness Chief Complaint: Weakness Narrative Narrative: Patient is a 73-year-old female with previous past medical history of COPD, hyperlipidemia, bradycardia, CAD status post CABG three-vessel bypass in 2020, atrial flutter/fibrillation on warfarin, hypertension, diabetes who presented to the emerged part with a chief complaint of weakness. Patient states that this morning she was attempting to use her walker as she normally does to get to the bathroom and states that she had a fall 3 times. She states that she did hit her head and she does not believe that she passed out. Patient is complaining of right shoulder pain as well from the fall. Patient states that her blood pressure has been running high lately and states that she has been taking her medications as prescribed. Patient prior to going to bed last night felt her normal self. 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 Myocardial infarction Atrial fibrillation Rheumatic fever Mitral prolapse Stroke Right renal artery stenosis 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 Anemia Depression Rheumatoid arthritis GERD (gastroesophageal reflux disease) COPD (chronic obstructive pulmonary disease) Irregular heart beat Deafness in left ear Myocardial infarct Seizures Stroke/cerebrovascul ar accident Hypertension Contusion of face Multiple falls Chronic anticoagulation Unsteady gait 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, chronic Abrasion of left ring finger Diabetes HTN (hypertension) Afib Home Medications ???Medication ???Instructions ???Recorded ???Last Taken ???Type atorvastatin 40 mg tablet 40 mg PO DAILY 01/15/23 Unknown History carbamazepine 200 mg tablet 200 mg PO .x4 01/15/23 Unknown History clonidine HCl 0.3 mg tablet 0.3 mg PO TID 01/15/23 01/15/23 History hydralazine 100 mg tablet 100 mg PO TID BLOOD PRESSURE 01/15/23 01/15/23 History ofloxacin 0.3 % eye drops 1 drp ophthalmic (eye) DAILY 01/15/23 Unknown History valsartan 160 mg tablet 160 mg PO BID 01/15/23 Unknown History amiodarone 200 mg tablet 200 mg PO DAILY 02/11/23 Unknown History calcium carbonate-vitamin D3 1 tab PO DAILY 02/11/23 Unknown History multivitamin (Daily Multi-Vitamin 1 tab PO DAILY 02/11/23 Unknown History tablet) polymyxin B sulfate 10,000 1 drp ophthalmic (eye) BID 02/11/23 Unknown History unit-trimethoprim 1 mg/mL eye drops CATARACTS warfarin 3 mg tablet 4.5 mg PO DAILY 02/11/23 Unknown History aspirin 81 mg chewable tablet 81 mg PO BREAKFAST #1 TAB 02/13/23 Unknown Rx carvedilol 25 mg tablet 25 mg PO BID #60 tabs 02/13/23 Unknown Rx Allergy/AdvReac Type Severity Reaction Status Date / Time ibuprofen Allergy Rash Verified 01/17/24 07:10 naproxen (From Naprosyn) Allergy Rash Verified 01/17/24 07:10 codeine AdvReac Other Verified 01/17/24 07:10 Surgical History Aortic valve replaced Hx of CABG S/P left knee arthroscopy Hx of CABG Aortic valve replaced Social History Smoking Status: Current every day smoker tobacco type: cigarettes ROS ROS ED ROS Narrative Constitutional: Denies any headaches, fevers, chills, lightness, dizziness Eyes: Denies change in vision double vision blurry vision Cardiovascular: Denies chest pain or palpitations Respiratory: Denies cough or wheezing shortness of breath Abdomen: Denies abdominal pain nausea vomit diarrhea : Denies any urinary symptoms Neurological: Complains of generalized weakness denies any numbness, weakness, tingling Musculoskeletal: Complains of chronic back pain states this is unchanged Skin: Denies any rashes or lesions EXAM Physical Exam Narrative Exam Narrative: General: Patient was lying in bed rest comfortably did not appear to be acute distress Head: Atraumatic, normocephalic Eyes: PERRL bilaterally, EOMI biotic no conjunctival injection noted Neck: Soft, supple, trachea midline, no tenderness palpation midline of the cervical spine Cardiovascular: Patient is bradycardic with a regular rhythm no murmurs gallops rubs noted Respiratory: Clear to auscultation bilaterally Abdomen: Soft, nondistended, nontender to palpation, bowel sounds present x 4 Musculoskeletal: Patient has pain in her right shoulder with attempted range of motion (more content not included)... Normal [facility] Epithelial cells.squamous LM Ql (Urine sed)Ordered By: Jose Carrion on 01-17-2024 Epithelial cells.squamous LM.HPF (Urine sed) [#/Area] 0 /[HPF] 5-10 [facility] Glucose Ql (U)Ordered By: Estiven Carrion on 01-17-2024 Urine Glucose (UA) Normal mg/dl Normal [facility] H AND P Exam - [facility] 01-17-2024 H&P Exam - Hospitalist [facility] Medical Records Department [address] [place] [address] H P Exam - Hospitalist 01/17/24 1210 MR#: [id number] Acct: [id number] Name: MARK MARTIN Rep #: [id number] : 1950 73 From: Sukumar Eddy MD PCP: Dr. Savage Gilliam MD Status:ADM LARY Location: PR3 HE511-1 HPI - General General Date of Admission: 01/17/24 HPI Narrative MARK MARTIN, is a 73 F who presents to the hospital with weakness. She lives at home and normally uses a walker to get around but states that this morning when she woke up she was having some increased difficulty with walking even using her walker. She had 3 falls today, none of which did she feel she passed out from. She did hit her head however CT of the brain was negative for head bleed. Urine analysis and chest x-ray were negative for any signs of infection. She was having some right shoulder pain as well but in the ER x-ray was negative for fracture. She did note that her blood pressure was running little bit high recently even though she has been taking her medications and a troponin was obtained in the ER which was elevated but it is chronically elevated and she is not having any chest pain or shortness of breath at this time. 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 Myocardial infarction Atrial fibrillation Rheumatic fever Mitral prolapse Stroke Right renal artery stenosis 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 Anemia Depression Rheumatoid arthritis GERD (gastroesophageal reflux disease) COPD (chronic obstructive pulmonary disease) Irregular heart beat Deafness in left ear Myocardial infarct Seizures Stroke/cerebrovascul ar accident Hypertension Contusion of face Multiple falls Chronic anticoagulation Unsteady gait 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, chronic Abrasion of left ring finger Diabetes HTN (hypertension) Afib Home Medications ???Medication ???Instructions ???Recorded ???Last Taken ???Type atorvastatin 40 mg tablet 40 mg PO DAILY 01/15/23 Unknown History carbamazepine 200 mg tablet 200 mg PO .x4 01/15/23 Unknown History clonidine HCl 0.3 mg tablet 0.3 mg PO TID 01/15/23 01/15/23 History hydralazine 100 mg tablet 100 mg PO TID BLOOD PRESSURE 01/15/23 01/15/23 History valsartan 160 mg tablet 160 mg PO BID 01/15/23 Unknown History amiodarone 200 mg tablet 200 mg PO DAILY 02/11/23 Unknown History calcium carbonate-vitamin D3 1 tab PO DAILY 02/11/23 Unknown History multivitamin (Daily Multi-Vitamin 1 tab PO DAILY 02/11/23 Unknown History tablet) warfarin 3 mg tablet 4.5 mg PO DAILY 02/11/23 Unknown History aspirin 81 mg chewable tablet 81 mg PO BREAKFAST #1 TAB 02/13/23 Unknown Rx carvedilol 25 mg tablet 25 mg PO BID #60 tabs 02/13/23 Unknown Rx Allergy/AdvReac Type Severity Reaction Status Date / Time ibuprofen Allergy Rash Verified 01/17/24 07:10 naproxen (From Naprosyn) Allergy Rash Verified 01/17/24 07:10 codeine AdvReac Other Verified 01/17/24 07:10 Family History (Updated 01/17/24 @ 12:[address] Sukumar Eddy MD) Other Heart disease Surgical History Aortic valve replaced Hx of CABG S/P left knee arthroscopy Hx of CABG Aortic valve replaced Social History Smoking Status: Current every day smoker tobacco type: cigarettes ROS Constitutional Constitutional: Reports weakness; Denies chills, fatigue, fever(s) or malaise Eyes Eyes: Denies blurry vision ENT HEENT: Denies headache(s) or nasal discharge Cardiovascular Cardiovascular: Denies chest pain, dyspnea on exertion or syncope Respiratory/Chest Respiratory/Chest: Denies cough, shortness of breath at rest or shortness of breath with exertion Gastrointestinal Gastrointestinal: Denies constipation, diarrhea, nausea or vomiting Genitourinary Genitourinary: Denies dysuria Musculoskeletal Musculoskeletal: Reports joint pain Neurologic Neurologic: Denies focal weakness, numbness or tremor(s) Psychiatric Psychiatric: Denies anxiety or depression Vital Signs Vital Signs Vital Signs: 01/17/24 07:05 01/17/24 07:10 01/17/24 07:22 Temperature 98.4 F Temperature Source Oral Pulse Rate 41 L Respiratory Rate 16 Respiratory Effort Normal Non-Labored Respiratory Pattern Normal Blood Pressure 189/74 H Blood Pressure Mean 112 Pulse Ox 97 96 Oxygen Delivery Method Room Air Room Air 01/17/24 09:11 01/17/24 11:30 01/17/24 11:31 Temperature 97.6 F L 98.5 F Temperature Source Oral Pulse Rate 64 45 L 45 L Respiratory Rate 17 (more content not included)... Normal [facility] Ketones Test strip Ql (U)Ord ered By: Jose Carrion on 01-17-2024 Ketones Ql (U) Negative Negative [facility] L501.4020on 01-17-2024 TROPONIN-I HS 95 pg/mL High 3.0-54.0 [facility] Comment on above: Order Comment: 'TROP ' Serial specimen #1, #2 or #3: 2 Result Comment: Plea se Note: New Test Units and Gender Specific Reference Ranges. For more information see Policy Stat Procedure [place] High Sensitivity Troponin (TNIH) and attachments. Performed By: #### L 501.4020 #### [facility] Laboratory [address] [place], [address] TROPONIN-I HS 86 pg/mL High 3.0-54.0 [facility] Comment on above: Order Comment: 'TROP ' Serial specimen #1, #2 or #3: 1 Result Comment: Plea se Note: New Test Units and Gender Specific Reference Ranges. For more information see Policy Stat Procedure [place] High Sensitivity Troponin (TNIH) and attachments. Performed By: #### L 500.2500, L501.4020, L501.5200, L100.0100, L501.9520 ####[facility] [id number] [place], [address] Magnesiumon 01-17-2024 Magnesium [Mass/Vol] 2.0 mg/dL Normal 1.6-2.6 [facility] Comment on above: Order Comment: 'TROP ' Serial specimen #1, #2 or #3: 1 Performed By: #### L 500.2500, L501.4020, L501.5200, L100.0100, L501.9520 ####[facility] [address] [place], [address] Magnesium measurementOrdered By: Jose Carrion on 01-17-2024 Magnesium [Mass/Vol] 2.0 mg/dL 1.6-2.6 [facility] Microscopic analysis of urin e for red blood cells (RBC)Ordered By: Jose Carrion on 01-17-2024 Urine RBC 0 SEEN /hpf 0-5 [facility] Mucus LM Ql (Urine sed)Order ed By: Jose Carrion on 01-17-2024 Mucus Ql (Urine sed) 0 SEEN /hpf [facility] Nitrite Test strip Ql (U)Ord ered By: Jose Carrion on 01-17-2024 Nitrite Ql (U) Negative Negative [facility] Partial Thromboplast Timeon 01-17-2024 aPTT Coag (Bld) [Time] 34.5 s Normal 24.1-36.2 [facility] Comment on above: Performed By: #### L 100.0100, L300.3900, L500.2500 #### [facility] Laboratory [address] [place], [address] Protein Test strip Ql (U)Ord ered By: Jose Blakelyer on 01-17-2024 Protein Ql (U) Negative Negative [facility] Prothrombin Time w/INRon INR Coag (PPP) [Relative time] 2.7 {INR} Normal [facility] Comment on above: Performed By: #### L 100.0100, L300.3900, L500.2500 #### [facility] Laboratory [address] [place], [address] PT Coag (PPP) [Time] 28.3 s High 11.7-14.9 [facility] Comment on above: Performed By: #### L 100.0100, L300.3900, L500.2500 #### [facility] Laboratory [address] [place], [address] Shoulder min 2 Viewson 01-16 Shoulder min 2 Views [facility] Imaging Services [address] [place] [address] Shoulder min 2 Views MR#: [id number] Acct: [id number] Name: MARK MARTIN Rep #: [id number] : 1950 F 73 From: Roverto Babin MD PCP: Dr. Savage Gilliam MD Status: REG ER Study: Shoulder min 2 Views Date of Exam: 01/17/24 Exam# [id number] Ordering Dr: Jose Carrion DO [id number] EXAM: XR RIGHT SHOULDER COMPLETE, 2 OR MORE VIEWS CLINICAL INDICATION: fall, pain TECHNIQUE: Two or more views of the right shoulder. COMPARISON: No relevant prior studies available. FINDINGS: BONES/JOINTS: Cephalic drift of the right humeral head suggestive of rotator cuff deformity. No acute fracture. No significant joint space narrowing. 5 mm round calcification adjacent to the proximal humerus may be related to tendinosis. SOFT TISSUES: Normal. No soft tissue swelling or gas. No radiopaque foreign body. RAD/Shoulder min 2 Views IMPRESSION: No acute fracture. As above. Electronically Signed: Roverto Babin MD at 8:40 EST Reading Location ID and State: [facility] / [place] Tel , Service support , CC: Dr. Savage Gilliam MD; Dr. Jose Carrion DO Biomedical Field Service Engineer: Signed Normal [facility] Spine Cervical without Contr ason 01-17-2024 Spine Cervical without Contras [facility] Imaging Services [address] [place], [place] [address] Spine Cervical without Contras MR#: [id number] Acct: [id number] Name: MARK MARTIN Rep #: [id number] : 1950 F 73 From: Roverto Babin MD PCP: Dr. Savage Gilliam MD Status: REG ER Study: Spine Cervical without Contras Date of Exam: 1 03/19/23 Exam# [id number] Ordering Dr: Jose Carrion DO [id number] EXAM: CT CERVICAL SPINE WITHOUT INTRAVENOUS CONTRAST CLINICAL INDICATION: fall TECHNIQUE: Helically acquired images were obtained of the cervical spine without intravenous contrast. 2D reformatted images were reviewed. This CT exam was performed using one or more of the following dose reduction techniques: automated exposure control, adjustment of the mA and/or kV according to patient size, and/or use of iterative reconstruction technique. COMPARISON: No relevant prior studies available. FINDINGS: VERTEBRAE: Loss of the normal cervical lordosis which may be due to muscle spasm or head positioning. No acute fracture or subluxation. Superior endplate deformity of the C7 vertebral body appears to be chronic. DISCS/SPINAL CANAL/NEURAL FORAMINA: Prominent disc space narrowing noted at C3-4, C5-6 and C6-7. Right posterolateral disc protrusion at the C3-4 level causes narrowing of the lateral recess and adjacent foramen. Left central disc herniation at C6-7 causes mild spinal stenosis. SOFT TISSUES: Normal. No prevertebral soft tissue swelling. LYMPH NODES: Normal. No cervical adenopathy. LUNG APICES: Unremarkable as visualized. CT/Spine Cervical without Contras IMPRESSION: No acute fracture or subluxation. Degenerative changes noted with C3-4 and C6-7 disc herniations further described above. Electronically Signed: Roverto Babin MD at 8:37 EST , CC: Dr. Savage Gilliam MD; Dr. Jose Carrion DO Biomedical Field Service Engineer: Signed Normal [facility] TSH QnOrdered By: Jose villavicencio on 01-17-2024 Thyroid Stimulating Hormone (TSH) 1.280 uIU/mL 0.358-3.740 [facility] Thyroid Stim Hormone (TSH)on 01-17-2024 TSH 1.280 uIU/mL Normal 0.358-3.740 [facility] Comment on above: Order Comment: 'TROP ' Serial specimen #1, #2 or #3: 1 Performed By: #### L 500.2500, L501.4020, L501.5200, L100.0100, L501.9520 ####[facility] [id number] [place], [address] Troponin IOrdered By: Jose Carrion on 01-17-2024 Troponin I High Sensitivity 95 pg/mL High 3.0-54.0 [facility] Comment on above: Please Note: [place] t Units and Gender Specific Reference Ranges. For more information see Policy Stat Procedure [place] High Sensitivity Troponin (TNIH) and attachments. Urinalysis, Completeon 01-16 EPI,SQUAMOUS 0-5 SEEN Normal 5-10 [facility] Comment on above: Order Comment: COLLE CTOR TO SPECIFY Performed By: #### L 100.0100, L300.3900, L500.2500 #### [facility] Laboratory [address] [place], [address] BACTERIA 0 SEEN Normal None Seen [facility] Comment on above: Order Comment: [facility] CTOR TO SPECIFY Performed By: #### L 100.0100, L300.3900, L500.2500 #### [facility] Laboratory [address] [place], [address] Mucus Ql (Urine sed) 0 SEEN Normal [facility] Comment on above: Order Comment: [facility] CTOR TO SPECIFY Performed By: #### L 100.0100, L300.3900, L500.2500 #### [facility] Laboratory [address] [place], [address] RBC 0 SEEN Normal 0-5 [facility] Comment on above: Order Comment: [facility] CTOR TO SPECIFY Performed By: #### L 100.0100, L300.3900, L500.2500 #### [facility] Laboratory [address] [place], [address] WBC 0 SEEN Normal 0-5 [facility] Comment on above: Order Comment: [facility] CTOR TO SPECIFY Performed By: #### L 100.0100, L300.3900, L500.2500 #### [facility] Laboratory [address] [place], [address] Urine blood detectionOrdered By: Jose Carrion on 01-17-2024 Urine Occult Blood 10 /ul High Negative [facility] Urine clarityOrdered By: Anjelica Carrion on 01-17-2024 Clarity (U) Sl. Cloudy Clear [facility] Urine color determinationOrd ered By: Jose Carrion on 01-17-2024 Color (U) Yellow Yellow [facility] Urine leukocyte esterase det ection by dipstickOrdered By: Jose Carrion on 01-17-2024 Leukocyte esterase Test strip Ql (U) Negative Negative [facility] Urine pHOrdered By: Jose neil on 01-17-2024 pH (U) 7.0 [pH] 5.0 - 8.0 [facility] Urine sediment bacteria coun t by microscopy (number/high power field)Ordered By: Jose Carrion on 01-17-2024 Bacteria LM.HPF (Urine sed) [#/Area] 0 /[HPF] None Seen [facility] Urine specific gravity measu rementOrdered By: Jose Carrion on 01-17-2024 Specific gravity (U) [Rel density] 1.005 1.002-1.030 [facility] Urobilinogen Ql (U)Ordered B y: Jose Carrion on 01-17-2024 Urine Urobilinogen Normal mg/dl Normal [facility] White blood cell countOrdere d By: Jose Carrion on 01-17-2024 Urine WBC 0 SEEN /hpf 0-5 [facility] aPTT Coag (PPP) [Time]Ordere d By: Jose Carrion on 01-17-2024 aPTT Coag (Bld) [Time] 34.5 s 24.1-36.2 [facility] L501.4020on 12-31-2023 TROPONIN-I HS 90 pg/mL High 3.0-54.0 [facility] Comment on above: Order Comment: 'TROP ' Serial specimen #1, #2 or #3: 2 Result Comment: Plea se Note: New Test Units and Gender Specific Reference Ranges. For more information see Policy Stat Procedure [place] High Sensitivity Troponin (TNIH) and attachments. Performed By: #### L 501.4020 ####[facility] [id number] [facility] [place], [address] 12 Lead EKGon 12-30-2023 12 Lead EKG [facility] Cardiovascular Services [address] [place] [address] 12 Lead EKG 12/30/232222 MR#: [id number] Acct: [id number] Name: MARK MARTIN Rep #: [id number] : 1950 73 From: Saul Jernigan MD Attending Dr: Status: DEP ER Ordering Dr: Ava Good DO Date: 12/30/23 Location: ED Sex: F C Admitted: Test Reason : DYSRHYTHMIA Blood Pressure : */* mmHG Vent. Rate : 49 BPM Atrial Rate : 49 BPM P-R Int : 244 ms QRS Dur : 94 ms QT Int : 484 ms P-R-T Axes : 75 49 91 degrees QTcB Int : 437 ms Sinus bradycardia with sinus arrhythmia with 1st degree A-V block Minimal voltage criteria for LVH, may be normal variant ( Ruben product ) Cannot rule out Anterior infarct , age undetermined Abnormal ECG Confirmed by Saul Jernigan ([id number]), editor department ROSANNE SAMAYOA ([id number]) on 01/02/2024 6:23:48 AM Referred By: Ava Good Confirmed By: Saul Jernigan 01/02/24 0623 Date Saul Jernigan MD CC: Dr. Savage Gilliam MD; Dr. Ava Good, Signed Normal [facility] Absolute neutrophil countOrd ered By: Ava Good on 12-30-2023 Neutrophils (Bld) [#/Vol] 2.7 10*3/uL 2.0-7.7 [facility] Albumin to globulin ratioOrd ered By: Ava Good on 12-30-2023 Albumin/Globulin [Mass ratio] 1.2 {ratio} 0.9-2.4 [facility] Bacteria LM.HPF (Urine sed) [#/Area]Ordered By: Ava Good on 12-30-2023 Urine Bacteria RARE /hpf None Seen [facility] Basophil percentageOrdered B y: Ava Good on 12-30-2023 Basophils/100 WBC (Bld) 1.5 % High 0-1 W [facility] Bilirubin Test strip Ql (U)O rdered By: Ava Good on 12-30-2023 Bilirubin Ql (U) Negative Negative [facility] Bilirubin, totalOrdered By: Ava Good on 12-30-2023 Bilirubin [Mass/Vol] 0.30 mg/dL 0.20-1.00 [facility] Comment on above: For patients on eltr ombopag therapy, use of Dimension [place] TBIL is not recommended. Blood urea nitrogen (BUN)/cr eatinine ratioOrdered By: Ava Good on 12-30-2023 Urea nitrogen/Creatinine [Mass ratio] 16.6 mg/mg 11-26 [facility] Brain/Head without Contrasto n 12-30-2023 Brain/Head without Contrast [facility] Imaging Services [address] [place], [place] [address] Brain/Head without Contrast MR#: [id number] Acct: [id number] Name: MARK MARTIN Rep #: [id number] : 1950 F 73 From: Jose Manuel Coto MD PCP: Dr. Savage Gilliam MD Status: REG ER Study: Brain/Head without Contrast Date of Exam: 12/09 04/02 Exam# [id number] Ordering Dr: Ava Good DO [id number] STUDY: CT BRAIN WITHOUT CONTRAST REASON FOR EXAM: Female, 73 years old. Frequent falls, headache RADIATION DOSAGE (If Supplied By Facility): CTDIvol = ( 44.99 ) mGy, DLP = ( 779.23 ) mGycm TECHNIQUE: Transaxial CT imaging of the brain was performed without administration of intravenous contrast material. Individualized dose optimization techniques were used for this CT. COMPARISON: March 17, 2023 FINDINGS: Normal soft tissue structures. Normal calvarium. Ossific plaquing of the cavernous carotids and vertebral arteries. There is also vertebrobasilar dolichoectasia consistent with systemic hypertension Moderate atrophy and advanced periventricular white matter ischemic changes. Old lacunar infarct in the head of the right caudate nucleus. Old left parietal lobe infarct Normal brainstem. Chronic ischemic changes within the cerebellar hemispheres bilaterally There is no intracranial hemorrhage. There are no findings of an acute ischemic infarction. Normal visualized paranasal sinuses. CT/Brain/Head without Contrast IMPRESSION: Moderate atrophy and advanced periventricular white matter ischemic changes with multiple old infarcts. No evidence for acute intracranial hemorrhage Electronically Signed: Jose Manuel Coto MD at 22:56 EST Reading Location ID and State: [facility] / [place] Tel , Service support , CC: Dr. Savage Gilliam MD; Dr. Ava Good DO Biomedical Field Service Engineer: Signed Normal [facility] CBC W/Diff, Automatedon 12-09 Absolute Lymph 2.00 X10 3/uL Normal 0.83-4.51 [facility] Comment on above: Performed By: #### L 100.0100, L300.3900, L500.2500 #### [facility] Laboratory [address] [place], [address] Absolute Neut 2.7 X10 3/uL Normal 2.0-7.7 [facility] Comment on above: Performed By: #### L 100.0100, L300.3900, L500.2500 #### [facility] Laboratory [address] [place], [address] Basophils/100 WBC (Bld) 1.5 % High 0-1 W [facility] Comment on above: Performed By: #### L 100.0100, L300.3900, L500.2500 #### [facility] Laboratory [address] [place], [address] Eosinophils/100 WBC (Bld) 0.4 % Normal 0-5 [facility] Comment on above: Performed By: #### L 100.0100, L300.3900, L500.2500 #### [facility] Laboratory [address] [place], [address] Erythrocyte distribution width (RBC) [Ratio] 12.3 % Normal 11.6-14.6 [facility] Comment on above: Performed By: #### L 100.0100, L300.3900, L500.2500 #### [facility] Laboratory [address] [place], [address] Hematocrit (Bld) [Volume fraction] 40.5 % Normal 37-47 [facility] Comment on above: Performed By: #### L 100.0100, L300.3900, L500.2500 #### [facility] Laboratory [address] [place], [address] Hemoglobin (Bld) [Mass/Vol] 14.0 g/dL Normal 12.0-15.0 [facility] Comment on above: Performed By: #### L 100.0100, L300.3900, L500.2500 #### [facility] Laboratory [address] [place], [address] IG% 0.600 Normal 0.0-0.9 [facility] Comment on above: Result Comment: IG% - Immature Granulocytes (promyelocytes, myelocytes and metamyelocytes) > 1% indicates that a LEFT SHIFT is Present. Performed By: #### L 100.0100, L300.3900, L500.2500 #### [facility] Laboratory [address] [place], [address] Lymphocytes/100 WBC (Bld) 37.5 % Normal 19-41 [facility] Comment on above: Performed By: #### L 100.0100, L300.3900, L500.2500 #### [facility] Laboratory [address] [place], [address] MCH (RBC) [Entitic mass] 31.7 pg Normal 27.0-32.0 [facility] Comment on above: Performed By: #### L 100.0100, L300.3900, L500.2500 #### [facility] Laboratory [address] [place], [address] MCHC (RBC) [Mass/Vol] 34.6 g/dL Normal 32-36 [facility] Comment on above: Performed By: #### L 100.0100, L300.3900, L500.2500 #### [facility] Laboratory [address] [place], [address] MCV (RBC) [Entitic vol] 91.6 fL Normal 81-99 [facility] Comment on above: Performed By: #### L 100.0100, L300.3900, L500.2500 #### [facility] Laboratory [address] [place], [address] Monocytes/100 WBC (Bld) 8.8 % Normal 0-10 [facility] Comment on above: Performed By: #### L 100.0100, L300.3900, L500.2500 #### [facility] Laboratory [address] [place], [address] Neutrophils/100 WBC (Bld) 51.2 % Normal 47-70 [facility] Comment on above: Performed By: #### L 100.0100, L300.3900, L500.2500 #### [facility] Laboratory [address] [place], [address] Nucleated RBC (Bld) [#/Vol] 0 10*3/uL Normal 0-5 [facility] Comment on above: Performed By: #### L 100.0100, L300.3900, L500.2500 #### [facility] Laboratory [address] [place], [address] Platelet mean volume (Bld) [Entitic vol] 10.4 fL Normal 6.2-12.0 [facility] Comment on above: Performed By: #### L 100.0100, L300.3900, L500.2500 #### [facility] Laboratory [address] [place], [address] Platelets (Bld) [#/Vol] 230 10*3/uL Normal 150-450 [facility] Comment on above: Performed By: #### L 100.0100, L300.3900, L500.2500 #### [facility] Laboratory [address] [place], [address] RBC (Bld) [#/Vol] 4.42 10*6/uL Normal 4.2-5.4 [facility] Comment on above: Performed By: #### L 100.0100, L300.3900, L500.2500 #### [facility] Laboratory [address] [place], [address] RDW SD 41.2 fl Normal 35.1-43.9 [facility] Comment on above: Performed By: #### L 100.0100, L300.3900, L500.2500 #### [facility] Laboratory [address] [place], [address] WBC (Bld) [#/Vol] 5.3 10*3/uL Normal 4.4-11.0 [facility] Comment on above: Performed By: #### L 100.0100, L300.3900, L500.2500 #### [facility] Laboratory [address] [place], [address] Carbon dioxide measurementOr dered By: Ava Good on 12-30-2023 CO2 [Moles/Vol] 32.0 mmol/L 21.0-32.0 [facility] Chest PA and Lateralon 12-29 Chest PA and Lateral [facility] Imaging Services [address] [place] [address] Chest PA and Lateral MR#: [id number] Acct: [id number] Name: MARK MARTIN Rep #: [id number] : 1950 F 73 From: Rakesh Mercedes MD PCP: Dr. Savage Gilliam MD Status: REG ER Study: Chest PA and Lateral Date of Exam: 12/30/23 Exam# [id number] Ordering Dr: Ava Good DO [id number] EXAM: XR CHEST, 2 VIEWS CLINICAL INDICATION: Cough TECHNIQUE: Frontal and lateral views of the chest. COMPARISON: 12/06/2023 FINDINGS: LUNGS AND PLEURAL SPACES: Unremarkable. No consolidation or edema. No pneumothorax. No effusion. HEART: Unremarkable. Cardiac silhouette not enlarged. MEDIASTINUM: Central airways and mediastinal contour are unremarkable. BONES/JOINTS: Unremarkable. No acute fracture. SOFT TISSUES: Unremarkable. RAD/Chest PA and Lateral IMPRESSION: No radiographic evidence of acute cardiopulmonary disease. Electronically Signed: Rakesh Mercedes MD at 23:24 EST , CC: Dr. Savage Gilliam MD; Dr. Ava Good DO Biomedical Field Service Engineer: Signed Normal [facility] Chloride measurementOrdered By: Ava Good on 12-30-2023 Chloride [Moles/Vol] 97 mmol/L Low 98-107 [facility] Comprehensive Metabolic Prof ilon 12-30-2023 Albumin [Mass/Vol] 3.7 g/dL Normal 3.2-5.0 [facility] Comment on above: Order Comment: 'TROP ' Serial specimen #1, #2 or #3: 1 Performed By: #### L 100.0100, L300.3900, L500.2500 #### [facility] Laboratory [facility] [place], [address] Albumin/Globulin [Mass ratio] 1.2 {ratio} Normal 0.9-2.4 [facility] Comment on above: Order Comment: 'TROP ' Serial specimen #1, #2 or #3: 1 Performed By: #### L 100.0100, L300.3900, L500.2500 #### [facility] Laboratory [address] [place], [address] ALK P 89 U/L Normal 45-117 [facility] Comment on above: Order Comment: 'TROP ' Serial specimen #1, #2 or #3: 1 Performed By: #### L 100.0100, L300.3900, L500.2500 #### [facility] Laboratory [address] [place], [address] ALT [Catalytic activity/Vol] 22 U/L Normal 13-56 [facility] Comment on above: Order Comment: 'TROP ' Serial specimen #1, #2 or #3: 1 Performed By: #### L 100.0100, L300.3900, L500.2500 #### [facility] Laboratory [address] [place], [address] AST [Catalytic activity/Vol] 20 U/L Normal 15-37 [facility] Comment on above: Order Comment: 'TROP ' Serial specimen #1, #2 or #3: 1 Performed By: #### L 100.0100, L300.3900, L500.2500 #### [facility] Laboratory [address] [place], [address] Bilirubin [Mass/Vol] 0.30 mg/dL Normal 0.20-1.00 [facility] Comment on above: Order Comment: 'TROP ' Serial specimen #1, #2 or #3: 1 Result Comment: For patients on eltrombopag therapy, use of Dimension [place] TBIL is not recommended. Performed By: #### L 100.0100, L300.3900, L500.2500 #### [facility] Laboratory [address] [place], [address] BUN/CRE 16.6 RATIO Normal 10-20 [facility] Comment on above: Order Comment: 'TROP ' Serial specimen #1, #2 or #3: 1 Performed By: #### L 100.0100, L300.3900, L500.2500 #### [facility] Laboratory [address] [place], [address] CA,Total 9.1 mg/dL Normal 8.5-10.1 [facility] Comment on above: Order Comment: 'TROP ' Serial specimen #1, #2 or #3: 1 Performed By: #### L 100.0100, L300.3900, L500.2500 #### [facility] Laboratory [address] [place], [address] Chloride [Moles/Vol] 97 mmol/L Low 98-107 [facility] Comment on above: Order Comment: 'TROP ' Serial specimen #1, #2 or #3: 1 Performed By: #### L 100.0100, L300.3900, L500.2500 #### [facility] Laboratory [address] [place], [address] CO2 [Moles/Vol] 32.0 mmol/L Normal 21.0-32.0 [facility] Comment on above: Order Comment: 'TROP ' Serial specimen #1, #2 or #3: 1 Performed By: #### L 100.0100, L300.3900, L500.2500 #### [facility] Laboratory [address] [place], [address] Creatinine [Mass/Vol] 0.54 mg/dL Low 0.55-1.02 [facility] Comment on above: Order Comment: 'TROP ' Serial specimen #1, #2 or #3: 1 Result Comment: The validity of the calculated GFR GFRAA in patients over 70 years has not been determined. Clinical correlation is essential. Performed By: #### L 100.0100, L300.3900, L500.2500 #### [facility] Laboratory [address] [place], [address] ECRCL 48.80 ml/min Normal [facility] Comment on above: Order Comment: 'TROP ' Serial specimen #1, #2 or #3: 1 Performed By: #### L 100.0100, L300.3900, L500.2500 #### [facility] Laboratory [address] [place], [address] EST GFR - AA 141 mL/min Normal >60 [facility] Comment on above: Order Comment: 'TROP ' Serial specimen #1, #2 or #3: 1 Result Comment: Afri can [place] GFR Calc Performed By: #### L 100.0100, L300.3900, L500.2500 #### [facility] Laboratory [address] [place], [address] GAP 6 Normal 5-15 [facility] Comment on above: Order Comment: 'TROP ' Serial specimen #1, #2 or #3: 1 Performed By: #### L 100.0100, L300.3900, L500.2500 #### [facility] [facility] [address] [place], [address] GFR/1.73 sq M.predicted among non-blacks MDRD (S/P/Bld) [Vol rate/Area] 117 mL/min/{1.73_m2} Normal >60 [facility] Comment on above: Order Comment: 'TROP ' Serial specimen #1, #2 or #3: 1 Result Comment: Non- GFR Calc Performed By: #### L 100.0100, L300.3900, L500.2500 #### [facility] [address] [place], [address] Globulin (S) [Mass/Vol] 3.2 g/dL Normal 2.2-4.2 [facility] Comment on above: Order Comment: 'TROP ' Serial specimen #1, #2 or #3: 1 Performed By: #### L 100.0100, L300.3900, L500.2500 #### [facility] [address] [place], [address] Glucose [Mass/Vol] 118 mg/dL High 74-106 [facility] Comment on above: Order Comment: 'TROP ' Serial specimen #1, #2 or #3: 1 Result Comment: Fast ing Glucose result from 100 to 125 mg/dL suggests IMPAIRED HOMEOSTASIS per A.D.A. criteria. Performed By: #### L 100.0100, L300.3900, L500.2500 #### [facility] [address] [place], [address] Potassium [Moles/Vol] 3.3 mmol/L Low 3.5-5.1 [facility] Comment on above: Order Comment: 'TROP ' Serial specimen #1, #2 or #3: 1 Performed By: #### L 100.0100, L300.3900, L500.2500 #### [facility] [address] [place], [address] Sodium [Moles/Vol] 135 mmol/L Low 136-145 [facility] Comment on above: Order Comment: 'TROP ' Serial specimen #1, #2 or #3: 1 Performed By: #### L 100.0100, L300.3900, L500.2500 #### [facility] [address] [place], [address] T PROT 6.9 g/dL Normal 6.4-8.2 [facility] Comment on above: Order Comment: 'TROP ' Serial specimen #1, #2 or #3: 1 Performed By: #### L 100.0100, L300.3900, L500.2500 #### [facility] [address] [place], [address] Urea nitrogen [Mass/Vol] 9 mg/dL Normal 7-18 [facility] Comment on above: Order Comment: 'TROP ' Serial specimen #1, #2 or #3: 1 Performed By: #### L 100.0100, L300.3900, L500.2500 #### [facility] [address] [place], [address] Emergency Department Summary on 12-30-2023 Emergency Department Summary [facility] Medical Records Department [address] [place] [address] Emergency Department Summary 12/30/23 MR#: [id number] Acct: [id number] Name: MARK MARTIN Rep #: [id number] : 1950 73 From: Ava Good DO PCP: Dr. Savage Gilliam MD Status:DEP ER Location: ED HPI History of Present Illness Chief Complaint: Weakness Narrative Narrative: Patient is 73-year-old female with history of COPD, tobacco use, chronic anticoagulation (on Coumadin), atrial fibrillation, stroke and rheumatoid arthritis presenting via EMS for dizziness and multiple falls. Patient is had frequent falls but son states has been worse over the past few days. Tonight she fell through the TV and then knocked over a large potted plant. Patient does recall this and states that she gets dizzy and falls. She describes her dizziness as both a sensation of lightheadedness and room spinning sensation. It seems to be worse when she stands up. She attributes this to taking her medicine (clonidine and hydralazine) and states that she is post to take them apart so she does not pass out. She notes that she has had some associated nausea. She states that she did not hit her head and was able to catch herself. Son called EMS to have her brought to the emergency room. Patient tells me in the past few days she has been having a cough that is nonproductive. She denies associated chest pain. Son expresses to be concern for her ability to live home alone as she falls quite frequently. He states that at she has really bad depth perception and will think something is closer that it is and then fall trying to grab it. [facility] Medical History Hyperlipidemia Epilepsy HTN (hypertension) Tobacco abuse COPD (chronic obstructive pulmonary disease) Acute stroke due to ischemia FPC (current) use of 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 Myocardial infarction Atrial fibrillation Rheumatic fever Mitral prolapse Stroke Right renal artery stenosis 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 Anemia Depression Rheumatoid arthritis GERD (gastroesophageal reflux disease) COPD (chronic obstructive pulmonary disease) Irregular heart beat Deafness in left ear Myocardial infarct Seizures Stroke/cerebrovascul ar accident Hypertension Contusion of face Multiple falls Chronic anticoagulation Unsteady gait 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, chronic Abrasion of left ring finger Diabetes HTN (hypertension) Afib Home Medications ???Medication ???Instructions ???Recorded ???Last Taken ???Type atorvastatin 40 mg tablet 40 mg PO DAILY 01/15/23 Unknown History carbamazepine 200 mg tablet 200 mg PO .x4 01/15/23 Unknown History clonidine HCl 0.3 mg tablet 0.3 mg PO TID 01/15/23 01/15/23 History hydralazine 100 mg tablet 100 mg PO TID BLOOD PRESSURE 01/15/23 01/15/23 History ofloxacin 0.3 % eye drops 1 drp ophthalmic (eye) DAILY 01/15/23 Unknown History valsartan 160 mg tablet 160 mg PO BID 01/15/23 Unknown History amiodarone 200 mg tablet 200 mg PO DAILY 02/11/23 Unknown History calcium carbonate-vitamin D3 1 tab PO DAILY 02/11/23 Unknown History multivitamin (Daily Multi-Vitamin 1 tab PO DAILY 02/11/23 Unknown History tablet) polymyxin B sulfate 10,000 1 drp ophthalmic (eye) BID 02/11/23 Unknown History unit-trimethoprim 1 mg/mL eye drops CATARACTS warfarin 3 mg tablet 4.5 mg PO DAILY 02/11/23 Unknown History aspirin 81 mg chewable tablet 81 mg PO BREAKFAST #1 TAB 02/13/23 Unknown Rx carvedilol 25 mg tablet 25 mg PO BID #60 tabs 02/13/23 Unknown Rx Allergy/AdvReac Type Severity Reaction Status Date / Time ibuprofen Allergy Rash Verified 12/30/23 21:31 naproxen (From Naprosyn) Allergy Rash Verified 12/30/23 21:31 codeine AdvReac Other Verified 12/30/23 21:31 Surgical History Aortic valve replaced Hx of CABG S/P left knee arthroscopy Hx of CABG Aortic valve replaced Social History Smoking Status: Current every day smoker tobacco type: cigarettes ROS ROS ED Constitutional Constitutional ED: Denies chills or fever(s) Eyes Eyes: Denies change in vision Cardiovascular Cardiovascular: Denies chest pain or palpitations Respiratory/Chest Respiratory/Chest: Reports cough; Denies dyspnea or sputum Gastrointestinal Gastrointestinal: Reports nausea; Denies abdominal pain or vomiting Musculoskeletal Musculoskeletal: Denies arthralgias or myalgias Integumentary Denies rash Neurologic Neurologic: Reports headache(s); Denies paresthesias or weakness Hematologic/Lymphati c Hematologic/Lymphati c: Reports easy bleeding and easy bruising EXAM Physical Exam Const Vital Signs: 12/30/23 21:31 12/30/23 21:34 12/30/23 23:29 Benicia (more content not included)... Normal [facility] Eosinophil percentageOrdered By: Ava Good on 12-30-2023 Eosinophils/100 WBC (Bld) 0.4 % 0-5 [facility] Epithelial cells.squamous LM Ql (Urine sed)Ordered By: Ava Good on 12-30-2023 Epithelial cells.squamous LM.HPF (Urine sed) [#/Area] 0 /[HPF] 5-10 [facility] Erythrocyte distribution wid th ratioOrdered By: Ava Good on 12-30-2023 Erythrocyte distribution width (RBC) [Ratio] 12.3 % 11.6-14.6 [facility] Erythrocyte distribution wid th standard deviationOrdered By: Ava Good on 12-30-2023 Erythrocyte distribution width (RBC) [Entitic vol] 41.2 fL 35.1-43.9 [facility] Estimated glomerular filtrat ion rate (GFR) AmericanOrdered By: Ava Good on 12-30-2023 Estimated GFR (MDRD) Amer 141 mL/min >60 [facility] Comment on above: GFR Calc Estimation of creatinine sharon aranceOrdered By: Ava Good on 12-30-2023 Estimated Creatinine Clearance Calc 48.80 ml/min [facility] Glomerular filtration rate ( GFR) estimationOrdered By: Ava Good on 12-30-2023 Estimated GFR (MDRD) Non-Af Amer 117 mL/min >60 [facility] Comment on above: Non- GFR Calc Glucose Ql (U)Ordered By: Adis Good on 12-30-2023 Urine Glucose (UA) Normal mg/dl Normal [facility] Glucose measurementOrdered B y: Ava Good on 12-30-2023 Glucose [Mass/Vol] 118 mg/dL High 74-106 [facility] Comment on above: Fasting Glucose resu lt from 100 to 125 mg/dL suggests IMPAIRED HOMEOSTASIS per A.D.A. criteria. Hematocrit Auto (Bld) [Volum e fraction]Ordered By: Ava Good on 12-30-2023 Hematocrit (Bld) [Volume fraction] 40.5 % 37-47 [facility] Hemoglobin measurementOrdere d By: Ava Good on 12-30-2023 Hemoglobin (Bld) [Mass/Vol] 14.0 g/dL 12.0-15.0 [facility] Immature granulocytes/100 WB C Auto (Bld)Ordered By: Ava Good on 12-30-2023 Immature granulocytes/100 WBC (Bld) 0.600 % 0.0-0.9 [facility] Comment on above: IG% - Immature Granu locytes (promyelocytes, myelocytes and metamyelocytes) > 1% indicates that a LEFT SHIFT is Present. Influenza virus A and B and SARS-CoV-2 (COVID-19) and Respiratory syncytial virus RNAOrdered By: Ava Good on 12-30-2023 SARS-CoV-2 (COVID-19) RNA ROBERTA+probe Ql (Unsp spec) [facility] International normalized rat io (INR) calculationOrdered By: Ava Good on 12-30-2023 INR Coag (Bld) [Relative time] 1.4 {INR} [facility] Ketones Test strip Ql (U)Ord ered By: Ava Good on 12-30-2023 Ketones Ql (U) Negative Negative [facility] L501.4020on 12-30-2023 TROPONIN-I HS 80 pg/mL High 3.0-54.0 [facility] Comment on above: Order Comment: 'TROP ' Serial specimen #1, #2 or #3: 1 Result Comment: Plea se Note: New Test Units and Gender Specific Reference Ranges. For more information see Policy Stat Procedure [place] High Sensitivity Troponin (TNIH) and attachments. Performed By: #### L 100.0100, L300.3900, L500.2500 #### [facility] [address] [place], [address] Laboratory - Chemistry and C hemistry - challengeOrdered By: Ava Good on 12-30-2023 AST [Catalytic activity/Vol] 20 U/L 15-37 [facility] Lipaseon 12-30-2023 Lipase [Catalytic activity/Vol] 29 U/L Normal 13- [facility] Comment on above: Order Comment: 'TROP ' Serial specimen #1, #2 or #3: 1 Result Comment: Plea se note: LIPASE revised reference range effective 22. New Lipase methodology. Expected to produce lower values than the previous assay method. NEW Reference Range: 13 - 75 U/L Performed By: #### L 100.0100, L300.3900, L500.2500 #### [facility] [address] [place], [place], [id number] Lipase measurementOrdered By : Ava Good on 12-30-2023 Lipase [Catalytic activity/Vol] 29 U/L 13- [facility] Comment on above: Please note:LIPASE r evised reference range effective 22. New Lipase methodology. Expected to produce lower values than the previous assay method. NEW Reference Range: 13 - 75 U/L Lymphocytes Auto (Unsp spec) [#/Vol]Ordered By: Ava Good on 12-30-2023 Lymphocytes (Bld) [#/Vol] 2.00 10*3/uL 0.83-4.51 [facility] Lymphocytes/100 WBC Auto (Un sp spec)Ordered By: Ava Good on 12-30-2023 Lymphocytes/100 WBC (Bld) 37.5 % 19-41 [facility] M100.678on 12-30-2023 M100.678 Pending SARS-CoV-2 (COVID 19) Negative INFLUENZA A Negative INFLUENZA B Negative RSV PCR Negative Normal [facility] Comment on above: Performed By: #### L 100.0100, L300.3900, L500.2500 #### [facility] [address] [place], [place], [address] MCV (mean corpuscular volume ) determinationOrdered By: Ava Good on 12-30-2023 MCV (RBC) [Entitic vol] 91.6 fL 81-99 [facility] Mean corpuscular hemoglobin (MCH) determinationOrdered By: Ava Good on 12-30-2023 MCH (RBC) [Entitic mass] 31.7 pg 27.0-32.0 [facility] Mean corpuscular hemoglobin concentration (MCHC) determinationOrdered By: Ava Good on 12-30-2023 MCHC (RBC) [Mass/Vol] 34.6 g/dL 32-36 [facility] Mean platelet volume determi nationOrdered By: Ava Good on 12-30-2023 Platelet mean volume (Bld) [Entitic vol] 10.4 fL 6.2-12.0 [facility] Microscopic analysis of urin e for red blood cells (RBC)Ordered By: Ava Good on 12-30-2023 Urine RBC 0-5 SEEN /hpf 0-5 [facility] Monocyte percentageOrdered B y: Ava Good on 12-30-2023 Monocytes/100 WBC (Bld) 8.8 % 0-10 [facility] Mucus LM Ql (Urine sed)Order ed By: Ava Good on 12-30-2023 Mucus Ql (Urine sed) 0 SEEN /hpf [facility] Neutrophil percentageOrdered By: Ava Good on 12-30-2023 Neutrophils/100 WBC (Bld) 51.2 % 47-70 [facility] Nitrite Test strip Ql (U)Ord ered By: Ava Good on 12-30-2023 Nitrite Ql (U) Negative Negative [facility] Nucleated red blood cell per centageOrdered By: Ava Good on 12-30-2023 Nucleated RBC/100 WBC (Bld) [Ratio] 0 % 0-5 [facility] Platelet countOrdered By: Adis Good on 12-30-2023 Platelets (Bld) [#/Vol] 230 10*3/uL 150-450 [facility] Potassium measurementOrdered By: Ava Good on 12-30-2023 Potassium [Moles/Vol] 3.3 mmol/L Low 3.5-5.1 [facility] Protein Test strip Ql (U)Ord ered By: Ava Good on 12-30-2023 Protein Ql (U) Negative Negative [facility] Prothrombin Time w/INRon INR Coag (PPP) [Relative time] 1.4 {INR} Normal [facility] Comment on above: Performed By: #### L 100.0100, L300.3900, L500.2500 #### [facility] [address] [place], [address] PT Coag (PPP) [Time] 16.7 s High 11.7-14.9 [facility] Comment on above: Performed By: #### L 100.0100, L300.3900, L500.2500 #### [facility] [address] [place], [address] Prothrombin timeOrdered By: Ava Good on 12-30-2023 PT Coag (PPP) [Time] 16.7 s High 11.7-14.9 [facility] RBC Auto (Bld) [#/Vol]Ordere d By: Ava Good on 12-30-2023 RBC (Bld) [#/Vol] 4.42 10*6/uL 4.2-5.4 [facility] Serum anion gap measurementO rdered By: Ava Good on 12-30-2023 Anion gap [Moles/Vol] 6 mmol/L 5-15 [facility] Serum globulin measurementOr dered By: Ava Good on 12-30-2023 Globulin (S) [Mass/Vol] 3.2 g/dL 2.2-4.2 [facility] Serum or plasma alanine huang otransferase (ALT) measurementOrdered By: Ava Good on 12-30-2023 ALT [Catalytic activity/Vol] 22 U/L 13-56 [facility] Serum or plasma albumin tres urement (mass/volume)Ordered By: Ava Good on 12-30-2023 Albumin [Mass/Vol] 3.7 g/dL 3.2-5.0 [facility] Serum or plasma alkaline marilynn sphatase measurementOrdered By: Ava Good on 12-30-2023 ALP [Catalytic activity/Vol] 89 U/L 45-117 [facility] Serum or plasma calcium tres urement (mass/volume)Ordered By: Ava Good on 12-30-2023 Calcium [Mass/Vol] 9.1 mg/dL 8.5-10.1 [facility] Serum or plasma creatinine m easurement (mass/volume)Ordered By: Ava Good on 12-30-2023 Creatinine [Mass/Vol] 0.54 mg/dL Low 0.55-1.02 [facility] Comment on above: The validity of the calculated GFR & GFRAA in patients over 70 years has not been determined. Clinical correlation is essential. Serum or plasma urea nitroge n measurement (mass/volume)Ordered By: Ava Good on 12-30-2023 Urea nitrogen [Mass/Vol] 9 mg/dL 7-18 [facility] Sodium levelOrdered By: Adeola Good on 12-30-2023 Sodium [Moles/Vol] 135 mmol/L Low 136-145 [facility] Total proteinOrdered By: Gabi Good on 12-30-2023 Protein [Mass/Vol] 6.9 g/dL 6.4-8.2 [facility] Troponin IOrdered By: Ava Good on 12-30-2023 Troponin I High Sensitivity 90 pg/mL High 3.0-54.0 [facility] Comment on above: Please Note: [place] t Units and Gender Specific Reference Ranges. For more information see Policy Stat Procedure [place] High Sensitivity Troponin (TNIH) and attachments. Urinalysis, Completeon 12-29 BACTERIA RARE Normal None Seen [facility] Comment on above: Order Comment: CLEAN CATCH Performed By: #### L 100.0100, L300.3900, L500.2500 #### [facility] Laboratory [address] [place], [address] RBC 0-5 SEEN Normal 0-5 [facility] Comment on above: Order Comment: CLEAN CATCH Performed By: #### L 100.0100, L300.3900, L500.2500 #### [facility] [address] [place], [address] EPI,SQUAMOUS 0 SEEN Normal 5-10 [facility] Comment on above: Order Comment: CLEAN CATCH Performed By: #### L 100.0100, L300.3900, L500.2500 #### [facility] [address] [place], [address] Mucus Ql (Urine sed) 0 SEEN Normal [facility] Comment on above: Order Comment: CLEAN CATCH Performed By: #### L 100.0100, L300.3900, L500.2500 #### [facility] [address] [place], [address] WBC 0 SEEN Normal 0-5 [facility] Comment on above: Order Comment: CLEAN CATCH Performed By: #### L 100.0100, L300.3900, L500.2500 #### [facility] [address] [place], [address] Urine blood detectionOrdered By: Ava Good on 12-30-2023 Urine Occult Blood 10 /ul High Negative [facility] Urine clarityOrdered By: Gabi Good on 12-30-2023 Clarity (U) Clear Clear [facility] Urine color determinationOrd ered By: Ava Good on 12-30-2023 Color (U) Yellow Yellow [facility] Urine leukocyte esterase det ection by dipstickOrdered By: Ava Good on 12-30-2023 Leukocyte esterase Test strip Ql (U) Negative Negative [facility] Urine pHOrdered By: Ava worthy on 12-30-2023 pH (U) 8.0 [pH] 5.0 - 8.0 [facility] Urine specific gravity measu rementOrdered By: Ava Good on 12-30-2023 Specific gravity (U) [Rel density] 1.015 1.002-1.030 [facility] Urobilinogen Ql (U)Ordered B y: Ava Good on 12-30-2023 Urine Urobilinogen Normal mg/dl Normal [facility] White blood cell (WBC) count Ordered By: Ava Good on 12-30-2023 WBC (Bld) [#/Vol] 5.3 10*3/uL 4.4-11.0 [facility] White blood cell countOrdere d By: Ava Good on 12-30-2023 Urine WBC 0 SEEN /hpf 0-5 [facility] Absolute neutrophil countOrd ered By: Savage Marina on 12-23-2023 Neutrophils (Bld) [#/Vol] 4.7 10*3/uL 2.0-7.7 [facility] Albumin to globulin ratioOrd ered By: Savage Gilliam on 12-23-2023 Albumin/Globulin [Mass ratio] 1.1 {ratio} 0.9-2.4 [facility] Basophil percentageOrdered B y: Savage Gilliam on 12-23-2023 Basophils/100 WBC (Bld) 1.1 % High 0-1 [facility] Bilirubin, totalOrdered By: Savage Gilliam on 12-23-2023 Bilirubin [Mass/Vol] 0.40 mg/dL 0.20-1.00 [facility] Comment on above: For patients on eltr ombopag therapy, use of Dimension [place] TBIL is not recommended. Blood urea nitrogen (BUN)/cr eatinine ratioOrdered By: Savage Gilliam on 12-23-2023 Urea nitrogen/Creatinine [Mass ratio] 17.2 mg/mg 10-20 [facility] CBC W/Diff, Automatedon 12-08 Absolute Lymph 1.62 X10 3/uL Normal 0.83-4.51 [facility] Comment on above: Order Comment: Order Date: 12/12/23Order Info: [id number] - CBCD Performed By: #### L 100.0100, L300.3900, L500.2500 #### [facility] Laboratory [address] [place], [place], [address] Absolute Neut 4.7 X10 3/uL Normal 2.0-7.7 [facility] Comment on above: Order Comment: Order Date: 12/12/23Order Info: [id number] - CBCD Performed By: #### L 100.0100, L300.3900, L500.2500 #### [facility] [address] [place], [address] Basophils/100 WBC (Bld) 1.1 % High 0-1 [facility] Comment on above: Order Comment: Order Date: 12/12/23Order Info: [id number] - CBCD Performed By: #### L 100.0100, L300.3900, L500.2500 #### [facility] Laboratory [address] [place], [address] Eosinophils/100 WBC (Bld) 0.0 % Normal 0-5 [facility] Comment on above: Order Comment: Order Date: 12/12/23Order Info: [id number]- - CBCD Performed By: #### L 100.0100, L300.3900, L500.2500 #### [facility] [address] [place], [address] Erythrocyte distribution width (RBC) [Ratio] 12.5 % Normal 11.6-14.6 [facility] Comment on above: Order Comment: Order Date: 12/12/23Order Info: [id number]- - CBCD Performed By: #### L 100.0100, L300.3900, L500.2500 #### [facility] [address] [place], [address] Hematocrit (Bld) [Volume fraction] 42.6 % Normal 37-47 [facility] Comment on above: Order Comment: Order Date: 12/12/23Order Info: [id number] - CBCD Performed By: #### L 100.0100, L300.3900, L500.2500 #### [facility] Laboratory [address] [place], [address] Hemoglobin (Bld) [Mass/Vol] 14.2 g/dL Normal 12.0-15.0 [facility] Comment on above: Order Comment: Order Date: 12/12/23Order Info: [id number]- - CBCD Performed By: #### L 100.0100, L300.3900, L500.2500 #### [facility] [address] [place], [address] IG% 0.600 Normal 0.0-0.9 [facility] Comment on above: Order Comment: Order Date: 12/12/23Order Info: [id number]- - CBCD Result Comment: IG% - Immature Granulocytes (promyelocytes, myelocytes and metamyelocytes) > 1% indicates that a LEFT SHIFT is Present. Performed By: #### L 100.0100, L300.3900, L500.2500 #### [facility] [address] [place], [address] Lymphocytes/100 WBC (Bld) 23.2 % Normal 19-41 [facility] Comment on above: Order Comment: Order Date: 12/12/23Order Info: [id number]- - CBCD Performed By: #### L 100.0100, L300.3900, L500.2500 #### [facility] [address] [place], [address] MCH (RBC) [Entitic mass] 30.9 pg Normal 27.0-32.0 [facility] Comment on above: Order Comment: Order Date: 12/12/23Order Info: [id number]- - CBCD Performed By: #### L 100.0100, L300.3900, L500.2500 #### [facility] [address] [place], [place], [address] MCHC (RBC) [Mass/Vol] 33.3 g/dL Normal 32-36 [facility] Comment on above: Order Comment: Order Date: 12/12/23Order Info: [id number]- - CBCD Performed By: #### L 100.0100, L300.3900, L500.2500 #### [facility] [address] [place], [address] MCV (RBC) [Entitic vol] 92.6 fL Normal 81-99 [facility] Comment on above: Order Comment: Order Date: 12/12/23Order Info: [id number] - CBCD Performed By: #### L 100.0100, L300.3900, L500.2500 #### [facility] [address] [place], [address] Monocytes/100 WBC (Bld) 8.3 % Normal 0-10 [facility] Comment on above: Order Comment: Order Date: 12/12/23Order Info: 183- - CBCD Performed By: #### L 100.0100, L300.3900, L500.2500 #### [facility] [address] [place], [address] Neutrophils/100 WBC (Bld) 66.8 % Normal 47-70 [facility] Comment on above: Order Comment: Order Date: 12/12/23Order Info: 183- - CBCD Performed By: #### L 100.0100, L300.3900, L500.2500 #### [facility] [address] [place], [address] Nucleated RBC (Bld) [#/Vol] 0 10*3/uL Normal 0-5 [facility] Comment on above: Order Comment: Order Date: 12/12/23Order Info: [id number]- - CBCD Performed By: #### L 100.0100, L300.3900, L500.2500 #### [facility] [address] [place], [address] Platelet mean volume (Bld) [Entitic vol] 10.1 fL Normal 6.2-12.0 [facility] Comment on above: Order Comment: Order Date: 12/12/23Order Info: [id number]- - CBCD Performed By: #### L 100.0100, L300.3900, L500.2500 #### [facility] [address] [place], [address] Platelets (Bld) [#/Vol] 245 10*3/uL Normal 150-450 [facility] Comment on above: Order Comment: Order Date: 12/12/23Order Info: [id number] - CBCD Performed By: #### L 100.0100, L300.3900, L500.2500 #### [facility] [address] [place], [address] RBC (Bld) [#/Vol] 4.60 10*6/uL Normal 4.2-5.4 [facility] Comment on above: Order Comment: Order Date: 12/12/23Order Info: [id number]- - CBCD Performed By: #### L 100.0100, L300.3900, L500.2500 #### [facility] [address] [place], [address] RDW SD 42.3 fl Normal 35.1-43.9 [facility] Comment on above: Order Comment: Order Date: 12/12/23Order Info: [id number]- - CBCD Performed By: #### L 100.0100, L300.3900, L500.2500 #### [facility] [address] [place], [address] WBC (Bld) [#/Vol] 7.0 10*3/uL Normal 4.4-11.0 [facility] Comment on above: Order Comment: Order Date: 12/12/23Order Info: [id number] - CBCD Performed By: #### L 100.0100, L300.3900, L500.2500 #### [facility] [address] [place], [address] Carbon dioxide measurementOr dered By: Savage Gilliam on 12-23-2023 CO2 [Moles/Vol] 29.0 mmol/L 21.0-32.0 [facility] Chloride measurementOrdered By: Savage Gilliam on 12-23-2023 Chloride [Moles/Vol] 97 mmol/L Low 98-107 [facility] Comprehensive Metabolic Prof ilon 12-23-2023 Albumin [Mass/Vol] 3.5 g/dL Normal 3.2-5.0 [facility] Comment on above: Order Comment: Order Date: 12/12/23Order Info: [id number] - CMPOrder Info: [id number] - LIPID Performed By: #### L 100.0100, L300.3900, L500.2500 #### [facility] [address] [place], [address] Albumin/Globulin [Mass ratio] 1.1 {ratio} Normal 0.9-2.4 [facility] Comment on above: Order Comment: Order Date: 12/12/23Order Info: [id number] - CMPOrder Info: [id number] - LIPID Performed By: #### L 100.0100, L300.3900, L500.2500 #### [facility] [address] [place], [address] ALK P 88 U/L Normal 45-117 [facility] Comment on above: Order Comment: Order Date: 12/12/23Order Info: [id number] - CMPOrder Info: [id number] - LIPID Performed By: #### L 100.0100, L300.3900, L500.2500 #### [facility] [address] [place], [address] ALT [Catalytic activity/Vol] 22 U/L Normal 13-56 [facility] Comment on above: Order Comment: Order Date: 12/12/23Order Info: [id number] - CMPOrder Info: [id number] - LIPID Performed By: #### L 100.0100, L300.3900, L500.2500 #### [facility] [address] [place], [address] AST [Catalytic activity/Vol] 20 U/L Normal 15-37 [facility] Comment on above: Order Comment: Order Date: 12/12/23Order Info: [id number] - CMPOrder Info: [id number] - LIPID Performed By: #### L 100.0100, L300.3900, L500.2500 #### [facility] [address] [place], [address] Bilirubin [Mass/Vol] 0.40 mg/dL Normal 0.20-1.00 [facility] Comment on above: Order Comment: Order Date: 12/12/23Order Info: [id number] - CMPOrder Info: [id number] - LIPID Result Comment: For patients on eltrombopag therapy, use of Dimension [place] TBIL is not recommended. Performed By: #### L 100.0100, L300.3900, L500.2500 #### [facility] [address] [place], [address] BUN/CRE 17.2 RATIO Normal 10-20 [facility] Comment on above: Order Comment: Order Date: 12/12/23Order Info: [id number] - CMPOrder Info: [id number] - LIPID Performed By: #### L 100.0100, L300.3900, L500.2500 #### [facility] [address] [place], [address] CA,Total 8.8 mg/dL Normal 8.5-10.1 [facility] Comment on above: Order Comment: Order Date: 12/12/23Order Info: [id number] - CMPOrder Info: [id number] - LIPID Performed By: #### L 100.0100, L300.3900, L500.2500 #### [facility] [address] [place], [address] Chloride [Moles/Vol] 97 mmol/L Low 98-107 [facility] Comment on above: Order Comment: Order Date: 12/12/23Order Info: [id number] - CMPOrder Info: [id number] - LIPID Performed By: #### L 100.0100, L300.3900, L500.2500 #### [facility] [address] [place], [address] CO2 [Moles/Vol] 29.0 mmol/L Normal 21.0-32.0 [facility] Comment on above: Order Comment: Order Date: 12/12/23Order Info: [id number] - CMPOrder Info: [id number] - LIPID Performed By: #### L 100.0100, L300.3900, L500.2500 #### [facility] [address] [place], [address] Creatinine [Mass/Vol] 0.58 mg/dL Normal 0.55-1.02 [facility] Comment on above: Order Comment: Order Date: 12/12/23Order Info: [id number] - CMPOrder Info: [id number] - LIPID Result Comment: The validity of the calculated GFR GFRAA in patients over 70 years has not been determined. Clinical correlation is essential. Performed By: #### L 100.0100, L300.3900, L500.2500 #### [facility] [address] [place], [address] EST GFR - AA 130 mL/min Normal >60 [facility] Comment on above: Order Comment: Order Date: 12/12/23Order Info: [id number] - CMPOrder Info: [id number] - LIPID Result Comment: Afri can Moldovan GFR Calc Performed By: #### L 100.0100, L300.3900, L500.2500 #### [facility] [address] [place], [address] GAP 6 Normal 5-15 [facility] Comment on above: Order Comment: Order Date: 12/12/23Order Info: [id number] - CMPOrder Info: [id number] - LIPID Performed By: #### L 100.0100, L300.3900, L500.2500 #### [facility] [address] [place], [address] GFR/1.73 sq M.predicted among non-blacks MDRD (S/P/Bld) [Vol rate/Area] 107 mL/min/{1.73_m2} Normal >60 [facility] Comment on above: Order Comment: Order Date: 12/12/23Order Info: [id number] - CMPOrder Info: [id number] - LIPID Result Comment: Non- GFR Calc Performed By: #### L 100.0100, L300.3900, L500.2500 #### [facility] [address] [place], [address] Globulin (S) [Mass/Vol] 3.1 g/dL Normal 2.2-4.2 [facility] Comment on above: Order Comment: Order Date: 12/12/23Order Info: [id number] - CMPOrder Info: [id number] - LIPID Performed By: #### L 100.0100, L300.3900, L500.2500 #### [facility] [address] [place], [address] Glucose [Mass/Vol] 132 mg/dL High 74-106 [facility] Comment on above: Order Comment: Order Date: 12/12/23Order Info: [id number] - CMPOrder Info: [id number] - LIPID Result Comment: Fast ing Glucose result greater than or equal to 126 mg/dL suggests DIABETES MELLITUS per A.D.A. criteria. Performed By: #### L 100.0100, L300.3900, L500.2500 #### [facility] [address] [place], [address] Potassium [Moles/Vol] 3.6 mmol/L Normal 3.5-5.1 [facility] Comment on above: Order Comment: Order Date: 12/12/23Order Info: [id number] - CMPOrder Info: [id number] - LIPID Performed By: #### L 100.0100, L300.3900, L500.2500 #### [facility] [address] [place], [address] Sodium [Moles/Vol] 132 mmol/L Low 136-145 [facility] Comment on above: Order Comment: Order Date: 12/12/23Order Info: [id number] - CMPOrder Info: [id number] - LIPID Performed By: #### L 100.0100, L300.3900, L500.2500 #### [facility] [address] [place], [address] T PROT 6.6 g/dL Normal 6.4-8.2 [facility] Comment on above: Order Comment: Order Date: 12/12/23Order Info: [id number] - CMPOrder Info: [id number] - LIPID Performed By: #### L 100.0100, L300.3900, L500.2500 #### [facility] [address] [place], [address] Urea nitrogen [Mass/Vol] 10 mg/dL Normal 7-18 [facility] Comment on above: Order Comment: Order Date: 12/12/23Order Info: [id number] - CMPOrder Info: [id number] - LIPID Performed By: #### L 100.0100, L300.3900, L500.2500 #### [facility] [address] [place], [address] Eosinophil percentageOrdered By: Savage Gilliam on 12-23-2023 Eosinophils/100 WBC (Bld) 0.0 % 0-5 [facility] Erythrocyte distribution wid th ratioOrdered By: Savage Gilliam on 12-23-2023 Erythrocyte distribution width (RBC) [Ratio] 12.5 % 11.6-14.6 [facility] Erythrocyte distribution wid th standard deviationOrdered By: Savage Gilliam on 12-23-2023 Erythrocyte distribution width (RBC) [Entitic vol] 42.3 fL 35.1-43.9 [facility] Estimated glomerular filtrat ion rate (GFR) AmericanOrdered By: Savage Gilliam on 12-23-2023 Estimated GFR (MDRD) Amer 130 mL/min >60 [facility] Comment on above: GFR Calc Glomerular filtration rate ( GFR) estimationOrdered By: Savage Gilliam on 12-23-2023 Estimated GFR (MDRD) Non-Af Amer 107 mL/min >60 [facility] Comment on above: Non- GFR Calc Glucose measurementOrdered B y: Savage Gilliam on 12-23-2023 Glucose [Mass/Vol] 132 mg/dL High 74-106 [facility] Comment on above: Fasting Glucose resu lt greater than or equal to 126 mg/dL suggests DIABETES MELLITUS per A.D.A. criteria. Hematocrit Auto (Bld) [Volum e fraction]Ordered By: Savage Maeke on 12-23-2023 Hematocrit (Bld) [Volume fraction] 42.6 % 37-47 [facility] Hemoglobin A1con 12-23-2023 HbA1c (Bld) [Mass fraction] 6.0 % High 3.8-5.6 [facility] Comment on above: Order Comment: Order Date: 12/12/23Order Info: [id number] - A1C Result Comment: Norm al < 5.7 % Prediabetic 5.7 - 6.4 % Diabetic >or= 6.5 % Please note range changes. Performed By: #### L 100.0100, L300.3900, L500.2500 #### [facility] Laboratory [facility] [place], [address] Hemoglobin A1c percentageOrd ered By: Savage Maeke on 12-23-2023 HbA1c (Bld) [Mass fraction] 6.0 % High 3.8-5.6 [facility] Comment on above: Normal < 5.7 % Predi abetic 5.7 - 6.4 % Diabetic >or= 6.5 % Please note range changes. Hemoglobin measurementOrdere d By: Savage Maeke on 12-23-2023 Hemoglobin (Bld) [Mass/Vol] 14.2 g/dL 12.0-15.0 [facility] High density lipoprotein (HD L) measurementOrdered By: Savage Maeke on 12-23-2023 Cholesterol in HDL [Mass/Vol] 62 mg/dL >40 [facility] Comment on above: The drugs N-Acetylcy steine and Metamizole may falsely depress this assay. Reference Range HDL <40 mg/dL Low HDL Cholesterol HDL >or= 60 mg/dL High HDL Cholesterol Immature granulocytes/100 WB C Auto (Bld)Ordered By: Savage Gilliam on 12-23-2023 Immature granulocytes/100 WBC (Bld) 0.600 % 0.0-0.9 [facility] Comment on above: IG% - Immature Granu locytes (promyelocytes, myelocytes and metamyelocytes) > 1% indicates that a LEFT SHIFT is Present. International normalized rat io (INR) calculationOrdered By: Savage Gilliam on 12-23-2023 INR Coag (Bld) [Relative time] 2.5 {INR} [facility] - Chemistry and C hemistry - challengeOrdered By: Savage Gilliam on 12-23-2023 AST [Catalytic activity/Vol] 20 U/L [facility] Lipid Profileon 12-23-2023 Cholesterol [Mass/Vol] 121 mg/dL Normal 200 [facility] Comment on above: Order Comment: Order Date: 12/12/23Order Info: [id number] - CMPOrder Info: [id number] - LIPID Result Comment: <200 mg/dL Desirable 200-240 mg/dL Borderline >240 mg/dL High Risk Performed By: #### L 100.0100, L300.3900, L500.2500 #### [facility] Laboratory [address] [place], [address] Cholesterol in HDL [Mass/Vol] 62 mg/dL Normal [facility] Comment on above: Order Comment: Order Date: 12/12/23Order Info: [id number] - CMPOrder Info: [id number] - LIPID Result Comment: The drugs N-Acetylcysteine and Metamizole may falsely depress this assay. Reference Range HDL <40 mg/dL Low HDL Cholesterol HDL >or= 60 mg/dL High HDL Cholesterol Performed By: #### L 100.0100, L300.3900, L500.2500 #### [facility] [address] [place], [address] Cholesterol in LDL [Mass/Vol] 39 mg/dL Normal 0-130 [facility] Comment on above: Order Comment: Order Date: 12/12/23Order Info: [id number] - CMPOrder Info: [id number] - LIPID Performed By: #### L 100.0100, L300.3900, L500.2500 #### [facility] Laboratory [address] [place], [address] Cholesterol in VLDL [Mass/Vol] 20 mg/dL Normal 5-40 [facility] Comment on above: Order Comment: Order Date: 12/12/23Order Info: [id number] - CMPOrder Info: [id number] - LIPID Performed By: #### L 100.0100, L300.3900, L500.2500 #### [facility] [address] [place], [address] Triglyceride [Mass/Vol] 101 mg/dL Normal [facility] Comment on above: Order Comment: Order Date: 12/12/23Order Info: [id number] - CMPOrder Info: [id number] - LIPID Result Comment: The drugs N-Acetylcysteine and Metamizole may falsely depress this assay. Serum Triglycerides Reference Interval Normal <150 mg/dL Borderline high 150 - 199 mg/dL High 200 - 499 mg/dL Very High > or = 500 mg/dL Performed By: #### L 100.0100, L300.3900, L500.2500 #### [facility] [address] [place], [address] Low density lipoprotein (LDL ) cholesterol measurementOrdered By: Savage Gilliam on 12-23-2023 Cholesterol in LDL [Mass/Vol] 39 mg/dL 0-130 [facility] Lymphocytes Auto (Unsp spec) [#/Vol]Ordered By: Savage Gilliam on 12-23-2023 Lymphocytes (Bld) [#/Vol] 1.62 10*3/uL 0.83-4.51 [facility] Lymphocytes/100 WBC Auto (Un sp spec)Ordered By: Savage Gilliam on 12-23-2023 Lymphocytes/100 WBC (Bld) 23.2 % 19-41 [facility] MCV (mean corpuscular volume ) determinationOrdered By: Savage Gilliam on 12-23-2023 MCV (RBC) [Entitic vol] 92.6 fL 81-99 [facility] Mean corpuscular hemoglobin (MCH) determinationOrdered By: Savage Marina on 12-23-2023 MCH (RBC) [Entitic mass] 30.9 pg 27.0-32.0 [facility] Mean corpuscular hemoglobin concentration (MCHC) determinationOrdered By: Savage Gilliam on 12-23-2023 MCHC (RBC) [Mass/Vol] 33.3 g/dL 32-36 [facility] Mean platelet volume determi nationOrdered By: Chantelltamara Marina on 12-23-2023 Platelet mean volume (Bld) [Entitic vol] 10.1 fL 6.2-12.0 [facility] Monocyte percentageOrdered B y: Chantelltamara Marina on 12-23-2023 Monocytes/100 WBC (Bld) 8.3 % 0-10 [facility] Neutrophil percentageOrdered By: Savage Gilliam on 12-23-2023 Neutrophils/100 WBC (Bld) 66.8 % 47-70 [facility] Nucleated red blood cell per centageOrdered By: Chantelltamara Marina on 12-23-2023 Nucleated RBC/100 WBC (Bld) [Ratio] 0 % 0-5 [facility] Platelet countOrdered By: Rosales Gilliam on 12-23-2023 Platelets (Bld) [#/Vol] 245 10*3/uL 150-450 [facility] Potassium measurementOrdered By: Savage Gilliam on 12-23-2023 Potassium [Moles/Vol] 3.6 mmol/L 3.5-5.1 [facility] Prothrombin Time w/INRon INR Coag (PPP) [Relative time] 2.5 {INR} Normal [facility] Comment on above: Order Comment: Order Date: 12/12/23Order Info: [id number] - PT Performed By: #### L 100.0100, L300.3900, L500.2500 #### [facility] Laboratory [address] [place], [address] PT Coag (PPP) [Time] 26.9 s High 11.7-14.9 [facility] Comment on above: Order Comment: Order Date: 12/12/23Order Info: [id number] - PT Performed By: #### L 1000103, L312.1198, L500.2742 #### [facility] [address] [place], [address] Prothrombin timeOrdered By: Savage Gilliam on 12-23-2023 PT Coag (PPP) [Time] 26.9 s High 11.7-14.9 [facility] RBC Auto (Bld) [#/Vol]Ordere d By: Savage Gilliam on 12-23-2023 RBC (Bld) [#/Vol] 4.60 10*6/uL 4.2-5.4 [facility] Serum anion gap measurementO rdered By: Savage Gilliam on 12-23-2023 Anion gap [Moles/Vol] 6 mmol/L 5-15 [facility] Serum globulin measurementOr dered By: Savage Gilliam on 12-23-2023 Globulin (S) [Mass/Vol] 3.1 g/dL 2.2-4.2 [facility] Serum or plasma alanine huang otransferase (ALT) measurementOrdered By: Savage Gilliam on 12-23-2023 ALT [Catalytic activity/Vol] 22 U/L 13-56 [facility] Serum or plasma albumin tres urement (mass/volume)Ordered By: Savage Gilliam on 12-23-2023 Albumin [Mass/Vol] 3.5 g/dL 3.2-5.0 [facility] Serum or plasma alkaline marilynn sphatase measurementOrdered By: Savage Gillaim on 12-23-2023 ALP [Catalytic activity/Vol] 88 U/L 45-117 [facility] Serum or plasma calcium tres urement (mass/volume)Ordered By: Savage Gilliam on 12-23-2023 Calcium [Mass/Vol] 8.8 mg/dL 8.5-10.1 [facility] Serum or plasma cholesterol measurement (mass/volume)Ordered By: Savage Gilliam on 12-23-2023 Cholesterol [Mass/Vol] 121 mg/dL <200 [facility] Comment on above: <200 mg/dL Desirable 200-240 mg/dL Borderline >240 mg/dL High Risk Serum or plasma creatinine m easurement (mass/volume)Ordered By: Savage Maeke on 12-23-2023 Creatinine [Mass/Vol] 0.58 mg/dL 0.55-1.02 [facility] Comment on above: The validity of the calculated GFR & GFRAA in patients over 70 years has not been determined. Clinical correlation is essential. Serum or plasma urea nitroge n measurement (mass/volume)Ordered By: Savage Maeke on 12-23-2023 Urea nitrogen [Mass/Vol] 10 mg/dL 7-18 [facility] Sodium levelOrdered By: Chantell Gilliam on 12-23-2023 Sodium [Moles/Vol] 132 mmol/L Low 136-145 [facility] Total proteinOrdered By: Judy Maeke on 12-23-2023 Protein [Mass/Vol] 6.6 g/dL 6.4-8.2 [facility] Triglycerides measurementOrd ered By: Savage Maeke on 12-23-2023 Triglyceride [Mass/Vol] 101 mg/dL <199 [facility] Comment on above: The drugs N-Acetylcy steine and Metamizole may falsely depress this assay.Serum Triglycerides Reference Interval Normal <150 mg/dL Borderline high 150 - 199 mg/dL High 200 - 499 mg/dL Very High > or = 500 mg/dL Very low density lipoprotein (VLDL) cholesterol measurementOrdered By: Savage Maeke on 12-23-2023 VLDL Cholesterol 20 mg/dL 5-40 [facility] White blood cell (WBC) count Ordered By: Savage Maeke on 12-23-2023 WBC (Bld) [#/Vol] 7.0 10*3/uL 4.4-11.0 [facility] 12 Lead EKGon 12-06-2023 12 Lead EKG [facility] [address] [place] [address] 12 Lead EKG 12/06/23 0942 MR#: [id number] Acct: [id number] Name: MARK MARTIN Rep #: [id number] : [id number] 73 From: Kd Wolfe MD Attending Dr: Status: DEP ER Ordering Dr: Herman Boogie MD Date: 12/06/23 Location: ED Sex: F C Admitted: Test Reason : Blood Pressure : */* mmHG Vent. Rate : 36 BPM Atrial Rate : 36 BPM P-R Int : 270 ms QRS Dur : 108 ms QT Int : 528 ms P-R-T Axes : 41 44 86 degrees QTcB Int : 408 ms Critical Test Result: Low HR Marked sinus bradycardia with sinus arrhythmia with 1st degree A-V block Minimal voltage criteria for LVH, may be normal variant ( Ruben product ) Anteroseptal infarct , age undetermined Abnormal ECG Confirmed by YANETH SAVAGE, KD ([id number]), editor department ROSANNE SAMAYOA ([id number]) on 12/07/2023 6:01:11 AM Referred By: Confirmed By: KD WOLFE MD 12/07/23 0601 Date Kd Wolfe MD CC: Dr. Herman Boogie MD; No Primary Care Physician Signed Normal [facility] Basic Metabolic Profile (BMP )on 12-06-2023 BUN/CRE 14.2 RATIO Normal -20 [facility] Comment on above: Performed By: #### L 100.0100, L300.3900, L500.2500 #### [facility] Laboratory [address] [place], [address] CA,Total 8.5 mg/dL Normal 8.5-10.1 [facility] Comment on above: Performed By: #### L 100.0100, L300.3900, L500.2500 #### [facility] Laboratory [address] [place], [address] Chloride [Moles/Vol] 95 mmol/L Low 98-107 [facility] Comment on above: Performed By: #### L 100.0100, L300.3900, L500.2500 #### [facility] [address] [place], [address] CO2 [Moles/Vol] 30.0 mmol/L Normal 21.0-32.0 [facility] Comment on above: Performed By: #### L 100.0100, L300.3900, L500.2500 #### [facility] Laboratory [address] [place], [address] Creatinine [Mass/Vol] 0.64 mg/dL Normal 0.55-1.02 [facility] Comment on above: Result Comment: The validity of the calculated GFR GFRAA in patients over 70 years has not been determined. Clinical correlation is essential. Performed By: #### L 100.0100, L300.3900, L500.2500 #### [facility] Laboratory [address] [place], [address] ECRCL 53.67 ml/min Normal [facility] Comment on above: Performed By: #### L 100.0100, L300.3900, L500.2500 #### [facility] [address] [place], [address] EST GFR - AA 117 mL/min Normal >60 [facility] Comment on above: Result Comment: Afri can Moldovan GFR Calc Performed By: #### L 100.0100, L300.3900, L500.2500 #### [facility] Laboratory [address] [place], [address] GAP 7 Normal 5-15 [facility] Comment on above: Performed By: #### L 100.0100, L300.3900, L500.2500 #### [facility] [address] [place], [address] GFR/1.73 sq M.predicted among non-blacks MDRD (S/P/Bld) [Vol rate/Area] 97 mL/min/{1.73_m2} Normal >60 [facility] Comment on above: Result Comment: Non- GFR Calc Performed By: #### L 100.0100, L300.3900, L500.2500 #### [facility] [address] [place], [address] Glucose [Mass/Vol] 142 mg/dL High 74-106 [facility] Comment on above: Result Comment: Fast ing Glucose result greater than or equal to 126 mg/dL suggests DIABETES MELLITUS per A.D.A. criteria. Performed By: #### L 100.0100, L300.3900, L500.2500 #### [facility] [address] [place], [address] Potassium [Moles/Vol] 3.2 mmol/L Low 3.5-5.1 [facility] Comment on above: Performed By: #### L 100.0100, L300.3900, L500.2500 #### [facility] [address] [place], [address] Sodium [Moles/Vol] 132 mmol/L Low 136-145 [facility] Comment on above: Performed By: #### L 100.0100, L300.3900, L500.2500 #### [facility] [address] [place], [address] Urea nitrogen [Mass/Vol] 9 mg/dL Normal 7-18 [facility] Comment on above: Performed By: #### L 100.0100, L300.3900, L500.2500 #### [facility] [address] [place], [address] CBC W/Diff, Automatedon 10-2 Absolute Lymph 1.71 X10 3/uL Normal 0.83-4.51 [facility] Comment on above: Performed By: #### L 100.0100, L300.3900, L500.2500 #### [facility] Laboratory [address] [place], [address] Absolute Neut 3.5 X10 3/uL Normal 2.0-7.7 [facility] Comment on above: Performed By: #### L 100.0100, L300.3900, L500.2500 #### [facility] [address] [place], [address] Basophils/100 WBC (Bld) 1.4 % High 0-1 [facility] Comment on above: Performed By: #### L 100.0100, L300.3900, L500.2500 #### [facility] [address] [place], [address] Eosinophils/100 WBC (Bld) 0.2 % Normal 0-5 [facility] Comment on above: Performed By: #### L 100.0100, L300.3900, L500.2500 #### [facility] [address] [place], [address] Erythrocyte distribution width (RBC) [Ratio] 12.6 % Normal 11.6-14.6 [facility] Comment on above: Performed By: #### L 100.0100, L300.3900, L500.2500 #### [facility] [address] [place], [address] Hematocrit (Bld) [Volume fraction] 40.4 % Normal 37-47 [facility] Comment on above: Performed By: #### L 100.0100, L300.3900, L500.2500 #### [facility] [address] [place], [address] Hemoglobin (Bld) [Mass/Vol] 14.1 g/dL Normal 12.0-15.0 [facility] Comment on above: Performed By: #### L 100.0100, L300.3900, L500.2500 #### [facility] [address] [place], [address] IG% 0.500 Normal 0.0-0.9 [facility] Comment on above: Result Comment: IG% - Immature Granulocytes (promyelocytes, myelocytes and metamyelocytes) > 1% indicates that a LEFT SHIFT is Present. Performed By: #### L 100.0100, L300.3900, L500.2500 #### [facility] [address] [place], [address] Lymphocytes/100 WBC (Bld) 29.0 % Normal 19-41 [facility] Comment on above: Performed By: #### L 100.0100, L300.3900, L500.2500 #### [facility] [address] [place], [address] MCH (RBC) [Entitic mass] 31.7 pg Normal 27.0-32.0 [facility] Comment on above: Performed By: #### L 100.0100, L300.3900, L500.2500 #### [facility] [address] [place], [address] MCHC (RBC) [Mass/Vol] 34.9 g/dL Normal 32-36 [facility] Comment on above: Performed By: #### L 100.0100, L300.3900, L500.2500 #### [facility] [address] [place], [address] MCV (RBC) [Entitic vol] 90.8 fL Normal 81-99 [facility] Comment on above: Performed By: #### L 100.0100, L300.3900, L500.2500 #### [facility] [address] [place], [address] Monocytes/100 WBC (Bld) 9.7 % Normal 0-10 [facility] Comment on above: Performed By: #### L 100.0100, L300.3900, L500.2500 #### [facility] [address] [place], [address] Neutrophils/100 WBC (Bld) 59.2 % Normal 47-70 [facility] Comment on above: Performed By: #### L 100.0100, L300.3900, L500.2500 #### [facility] [address] [place], [address] Nucleated RBC (Bld) [#/Vol] 0 10*3/uL Normal 0-5 [facility] Comment on above: Performed By: #### L 100.0100, L300.3900, L500.2500 #### [facility] Laboratory [address] [place], [address] Platelet mean volume (Bld) [Entitic vol] 10.0 fL Normal 6.2-12.0 [facility] Comment on above: Performed By: #### L 100.0100, L300.3900, L500.2500 #### [facility] Laboratory [address] [place], [address] Platelets (Bld) [#/Vol] 223 10*3/uL Normal 150-450 [facility] Comment on above: Performed By: #### L 100.0100, L300.3900, L500.2500 #### [facility] Laboratory [address] [place], [address] RBC (Bld) [#/Vol] 4.45 10*6/uL Normal 4.2-5.4 [facility] Comment on above: Performed By: #### L 100.0100, L300.3900, L500.2500 #### [facility] [address] [place], [address] RDW SD 41.8 fl Normal 35.1-43.9 [facility] Comment on above: Performed By: #### L 100.0100, L300.3900, L500.2500 #### [facility] Laboratory [address] [place], [address] WBC (Bld) [#/Vol] 5.9 10*3/uL Normal 4.4-11.0 [facility] Comment on above: Performed By: #### L 100.0100, L300.3900, L500.2500 #### [facility] Laboratory [address] [place], [address] Chest PA and Lateralon 12-05 Chest PA and Lateral [facility] Imaging Services [address] [place] [address] Chest PA and Lateral MR#: [id number] Acct: [id number] Name: MARK MARTIN Rep #: [id number] : 1950 F 73 From: Liyah ty MD PCP: Care Physician,No Primary Status: [facility] ER Study: Chest PA and Lateral Date of Exam: 12/06/23 Exam# [id number] Ordering Dr: Herman Boogie MD [id number] HISTORY: cough. TECHNIQUE: XR Chest 2 Views. COMPARISON: 02/11/2023. FINDINGS: CARDIOMEDIASTINAL BORDERS: Cardiac silhouette within normal limits in size with valve prosthesis again seen. Mediastinal contour also unchanged with midline sternotomy and postoperative change. LUNGS: Radiographically clear. PLEURA: No pleural effusion or pneumothorax seen. OSSEOUS STRUCTURES: Mild degenerative change. RAD/Chest PA and Lateral IMPRESSION: No acute cardiopulmonary process identified. Electronically Signed: Liyah Merritt MD at 10:59 EDT Reading Location ID and State: [facility] / [place] Tel , Service support , CC: Dr. 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 Location: ED HPI History of Present Illness Chief Complaint: Weakness Informant: patient and family (Lives with sister.) Onset/Context/Timing Onset: Days Context: Gradual Onset Timing: Continuous Current Severity: Mild Maximum Severity: Mild Narrative Narrative: 73-year-old female past medical history of COPD not on home O2, prior [place], A-fib, on the blood thinner Coumadin. Diabetes and anemia. She just felt tired and weak the last several days. Nonproductive cough. No fever. No vomiting or diarrhea. Mild nausea. Denies any dysuria or abdominal pain. Prior similar symptoms: Yes Recent Illness/Hospitalizat ion: No PFSH PFSH Medical History Hyperlipidemia Epilepsy HTN (hypertension) Tobacco abuse COPD (chronic obstructive pulmonary disease) Acute stroke due to ischemia FPC (current) use of 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 Myocardial infarction Atrial fibrillation Rheumatic fever Mitral prolapse Stroke Right renal artery stenosis 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 Anemia Depression Rheumatoid arthritis GERD (gastroesophageal reflux disease) COPD (chronic obstructive pulmonary disease) Irregular heart beat Deafness in left ear Myocardial infarct Seizures Stroke/cerebrovascul ar accident Hypertension Contusion of face Multiple falls Chronic anticoagulation Unsteady gait 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, chronic Abrasion of left ring finger Diabetes HTN (hypertension) Afib Home Medications ???Medication ???Instructions ???Recorded ???Last Taken ???Type atorvastatin 40 mg tablet 40 mg PO DAILY 01/15/23 Unknown History carbamazepine 200 mg tablet 200 mg PO .x4 01/15/23 Unknown History clonidine HCl 0.3 mg tablet 0.3 mg PO TID 01/15/23 01/15/23 History hydralazine 100 mg tablet 100 mg PO TID BLOOD PRESSURE 01/15/23 01/15/23 History ofloxacin 0.3 % eye drops 1 drp ophthalmic (eye) DAILY 01/15/23 Unknown History valsartan 160 mg tablet 160 mg PO BID 01/15/23 Unknown History amiodarone 200 mg tablet 200 mg PO DAILY 02/11/23 Unknown History calcium carbonate-vitamin D3 1 tab PO DAILY 02/11/23 Unknown History multivitamin (Daily Multi-Vitamin 1 tab PO DAILY 02/11/23 Unknown History tablet) polymyxin B sulfate 10,000 1 drp ophthalmic (eye) BID 02/11/23 Unknown History unit-trimethoprim 1 mg/mL eye drops CATARACTS warfarin 3 mg tablet 4.5 mg PO DAILY 02/11/23 Unknown History aspirin 81 mg chewable tablet 81 mg PO BREAKFAST #1 TAB 02/13/23 Unknown Rx carvedilol 25 mg tablet 25 mg PO BID #60 tabs 02/13/23 Unknown Rx Allergy/AdvReac Type Severity Reaction Status Date / Time ibuprofen Allergy Rash Verified 12/06/23 09:02 naproxen (From Naprosyn) Allergy Rash Verified 12/06/23 09:02 codeine AdvReac Other Verified 12/06/23 09:02 Surgical History Aortic valve replaced Hx of CABG S/P left knee arthroscopy Hx of CABG Aortic valve replaced Social History Smoking Status: Current every day smoker tobacco type: cigarettes ROS ROS ED ROS Narrative Generalized weakness. Nonproductive cough. Mild nausea. Constitutional Constitutional ED: Denies chills or fever(s) Eyes Eyes: Denies blurry vision ENT ENT ED: Denies ear pain Cardiovascular Cardiovascular: Denies chest pain Respiratory/Chest Respiratory/Chest: Reports cough; Denies dyspnea Gastrointestinal Gastrointestinal: Reports nausea; Denies abdominal pain, diarrhea, melena or vomiting Genitourinary Genitourinary ED: Denies dysuria or hematuria Musculoskeletal Musculoskeletal: Denies arthralgias Integumentary Denies abscess Neurologic Neurologic: Denies headache(s) Psychiatric Psychiatric: Denies anxiety or depression Endocrine Endocrinology: Denies cold intolerance Hematologic/Lymphati c Hematologic/Lymphati c: Reports anemia Allergic/Immunologic Allergic/Immunologic ED: Denies mouth swelling, tongue swelling or urticaria EXAM Physical Exam Narrative Exam Narrative: 73-year-old female vital signs are stable afebrile. Pulse ox 93% on room air no hypoxia. H EENT exam unremarkable. Neck nontender. Lungs mild expiratory wheezes bilaterally. No rales or rhonchi. Heart bradycardic rate about 40 no murmur. Patient has a history of bradycardia. She states this is her baseline. Chest wall nontender. Abdomen soft nontender. Moving all 4 extremities. Nontender no edema. No cords. Normal strength. Normal range of motion. No deformity. Back nontender. N (more content not included)... Normal [facility] M100.678on 12-06-2023 Pending SARS-CoV-2 (COVID 19) Negative INFLUENZA A Negative INFLUENZA B Negative RSV PCR Negative Normal [facility] Comment on above: Performed By: #### L 400.0001, M18 ####[facility] [id number] [place], [address] Prothrombin Time w/INRon INR Coag (PPP) [Relative time] 1.6 {INR} Normal [facility] Comment on above: Performed By: #### L 100.0100, L300.3900, L500.2500 #### [facility] Laboratory [address] [place], [address] PT Coag (PPP) [Time] 18.7 s High 11.7-14.9 [facility] Comment on above: Performed By: #### L 100.0100, L300.3900, L500.2500 #### [facility] Laboratory [address] [place], [address] Urinalysis, Completeon 12-05 EPI,SQUAMOUS 0-5 SEEN Normal 5-10 [facility] Comment on above: Order Comment: COLLE CTOR TO SPECIFY Performed By: #### L 400.0001, 8 ####[facility] [id number] [place], [address] BACTERIA 0 SEEN Normal None Seen [facility] Comment on above: Order Comment: COLLE CTOR TO SPECIFY Performed By: #### L 400.0001, 8 ####[facility] [id number] [place], [address] Mucus Ql (Urine sed) 0 SEEN Normal [facility] Comment on above: Order Comment: COLLE CTOR TO SPECIFY Performed By: #### L 400.0001, M18 ####[facility] [id number] [place], [address] RBC 0 SEEN Normal 0-5 [facility] Comment on above: Order Comment: BEST CTOR TO SPECIFY Performed By: #### L 400.0001, M100.678 ####[facility] [id number] [place], [place], [address] WBC 0 SEEN Normal 0-5 [facility] Comment on above: Order Comment: BEST CTOR TO SPECIFY Performed By: #### L 400.0001, M100.678 ####[facility] [id number] [place], [place], [id number] .Auto Diffon 04-14-2023 Basophil, Absolute 0.1 10 3/mcL Normal 0.0-0.3 [facility] ([place]) Comment on above: Performed By: #### G FR, ANEU, BMP, CBC, PRO, ADIFF #### [address] [address] Basophils/100 WBC (Bld) 0.9 % Normal 0.0-2.5 [facility] ([place]) Comment on above: Performed By: #### G FR, ANEU, BMP, CBC, PRO, ADIFF #### [address] [address] Eosinophil, Absolute 0.1 10 3/mcL Normal 0.0-0.7 [facility] ([place]) Comment on above: Performed By: #### G FR, ANEU, BMP, CBC, PRO, ADIFF #### [address] [address] Eosinophils/100 WBC (Bld) 1.9 % Normal 0.0-6.0 [facility] ([place]) Comment on above: Performed By: #### G FR, ANEU, BMP, CBC, PRO, ADIFF #### [address] [address] Lymphocyte, Absolute 1.3 10 3/mcL Normal 0.9-4.3 [facility] ([place]) Comment on above: Performed By: #### G FR, ANEU, BMP, CBC, PRO, ADIFF #### [address] [address] Lymphocytes/100 WBC (Bld) 16.0 % Low 20.0-40.0 [facility] ([place] Comment on above: Performed By: #### G FR, ANEU, BMP, CBC, PRO, ADIFF #### [address] [address] Monocyte, Absolute 0.4 10 3/mcL Normal 0.1-1.4 [facility] ([place] Comment on above: Performed By: #### G FR, ANEU, BMP, CBC, PRO, ADIFF #### [address] [address] Monocytes/100 WBC (Bld) 5.6 % Normal 2.0-13.0 [facility] ([place]) Comment on above: Performed By: #### G FR, ANEU, BMP, CBC, PRO, ADIFF #### [address] [address] Neutrophils/100 WBC (Bld) 75.6 % High 50.0-75.0 [facility] ([place] Comment on above: Performed By: #### G FR, ANEU, BMP, CBC, PRO, ADIFF #### [address] [address] .GFRon 04-14-2023 GFR Non- >60 Normal [facility] ([place]) Comment on above: Result Comment: GFR Population mean for , Non- Americans Ages 20-29 = 116 mL/min/1.73 sq.m. Ages 30-39 = 107 mL/min/1.73 sq.m. Ages 40-49 = 99 mL/min/1.73 sq.m. Ages 50-59 = 93 mL/min/1.73 sq.m. Ages 60-69 = 85 mL/min/1.73 sq.m. Ages 70+ = 75 mL/min/1.73 sq.m. Chronic Kidney Disease: Less than 60 mL/min/1.73 square meters End Stage Renal Disease: Less than 15 mL/min/1.73 square meters Performed By: #### G FR, ANEU, BMP, CBC, PRO, ADIFF #### [address] [address] GFR >60 Normal [facility] ([place]) Comment on above: Result Comment: GFR Population mean for , Non- Americans Ages 20-29 = 116 mL/min/1.73 sq.m. Ages 30-39 = 107 mL/min/1.73 sq.m. Ages 40-49 = 99 mL/min/1.73 sq.m. Ages 50-59 = 93 mL/min/1.73 sq.m. Ages 60-69 = 85 mL/min/1.73 sq.m. Ages 70+ = 75 mL/min/1.73 sq.m. Chronic Kidney Disease: Less than 60 mL/min/1.73 square meters End Stage Renal Disease: Less than 15 mL/min/1.73 square meters Performed By: #### G FR, ANEU, BMP, CBC, PRO, ADIFF #### [address] [address] .NEUABSon 04-14-2023 Neutrophil, Absolute 6.0 10 3/mcL Normal 2.3-8.1 [facility] ([place]) Comment on above: Performed By: #### G FR, ANEU, BMP, CBC, PRO, ADIFF #### [address] [address] BMPon 04-14-2023 BUN/Creatinine Ratio 17.6 ratio Normal 10.0-22.0 [facility] ([place]) Comment on above: Performed By: #### G FR, ANEU, BMP, CBC, PRO, ADIFF #### [address] [address] Calcium [Mass/Vol] 8.9 mg/dL Normal 8.7-10.4 On license of [facility] ([place]) Comment on above: Performed By: #### G FR, ANEU, BMP, CBC, PRO, ADIFF #### [address] [address] Chloride [Moles/Vol] 103 mmol/L Normal 98-110 [facility] ([place] Comment on above: Performed By: #### G FR, ANEU, BMP, CBC, PRO, ADIFF #### [address] [address] CO2 [Moles/Vol] 30 mmol/L Normal 22-32 [facility] ([place] Comment on above: Performed By: #### G FR, ANEU, BMP, CBC, PRO, ADIFF #### [address] [address] Creatinine [Mass/Vol] 0.68 mg/dL Normal 0.50-1.20 [facility] ([place]) Comment on above: Performed By: #### G FR, ANEU, BMP, CBC, PRO, ADIFF #### [place] [address] Electrolyte Balance 5.0 mEq/L Normal 4.0-15.0 [facility] ([place]) Comment on above: Performed By: #### G FR, ANEU, BMP, CBC, PRO, ADIFF #### [place] [address] Glucose [Mass/Vol] 161 mg/dL High 82-115 On license of [facility] ([place]) Comment on above: Performed By: #### G FR, ANEU, BMP, CBC, PRO, ADIFF #### [address] [address] Potassium [Moles/Vol] 4.1 mmol/L Normal 3.5-5.0 [facility] ([place]) Comment on above: Performed By: #### G FR, ANEU, BMP, CBC, PRO, ADIFF #### [address] [address] Sodium [Moles/Vol] 138 mmol/L Normal 136-145 On license of [facility] ([place]) Comment on above: Performed By: #### G FR, ANEU, BMP, CBC, PRO, ADIFF #### [address] [address] Urea nitrogen [Mass/Vol] 12.0 mg/dL Normal 8.0-22.0 [facility] ([place] Comment on above: Performed By: #### G FR, ANEU, BMP, CBC, PRO, ADIFF #### [address] [address] CBCon 04-14-2023 Erythrocyte distribution width (RBC) [Ratio] 13.0 % Normal 11.5-15.5 [facility] ([place] Comment on above: Performed By: #### G FR, ANEU, BMP, CBC, PRO, ADIFF #### [place] [address] Hematocrit (Bld) [Volume fraction] 42.3 % Normal 34.0-46.0 [facility] ([place] Comment on above: Performed By: #### G FR, ANEU, BMP, CBC, PRO, ADIFF #### [place] [address] Hgb 14.4 G/dL Normal 12.0-16.0 [facility] ([place] Comment on above: Performed By: #### G FR, ANEU, BMP, CBC, PRO, ADIFF #### [place] [address] MCH (RBC) [Entitic mass] 32.1 pg Normal 27.0-33.0 [facility] ([place] Comment on above: Performed By: #### G FR, ANEU, BMP, CBC, PRO, ADIFF #### [place] [address] MCHC 34.1 G/dL Normal 32.0-36.0 [facility] ([place] Comment on above: Performed By: #### G FR, ANEU, BMP, CBC, PRO, ADIFF #### [place] [id number] MCV (RBC) [Entitic vol] 94.3 fL Normal 80.0-99.0 A [facility] ([place]) Comment on above: Performed By: #### G FR, ANEU, BMP, CBC, PRO, ADIFF #### [place] [address] Platelet 211 10 3/mcL Normal 150-450 [facility] ([place] Comment on above: Performed By: #### G FR, ANEU, BMP, CBC, PRO, ADIFF #### [place] [address] Platelet mean volume (Bld) [Entitic vol] 8.5 fL Normal 6.6-10.5 [facility] ([place] Comment on above: Performed By: #### G FR, ANEU, BMP, CBC, PRO, ADIFF #### [address] [address] RBC 4.48 10 6/mcL Normal 4.10-5.30 [facility] ([place] Comment on above: Performed By: #### G FR, ANEU, BMP, CBC, PRO, ADIFF #### [address] [address] WBC 7.9 10 3/mcL Normal 4.5-10.8 [facility] ([place] Comment on above: Performed By: #### G FR, ANEU, BMP, CBC, PRO, ADIFF #### [address] [address] LABORATORYOrdered By: SYSTEM SYSTEM on 04-14-2023 Basophils (Bld) [#/Vol] 0.1 103/mcL Normal 0.0 - 0.3 10^3/mcL Workflow SS Basophils/100 WBC (Bld) 0.9 % Normal 0.0 - 2.5 % Workflow SS Calcium [Mass/Vol] 8.9 mg/dL Normal 8.7 - 10. 4 mg/dL ADM SS Chloride [Moles/Vol] 103 mmol/L Normal 98 - 11 0 mEq/L ADM SS CO2 [Moles/Vol] 30 mmol/L Normal 22 - 32 mEq/L ADM SS Creatinine [Mass/Vol] 0.68 mg/dL Normal 0.50 - 1.20 mg/dL ADM SS Electrolyte Balance 5.0 mEq/L Normal 4.0 - 15 .0 mEq/L ADM SS Eosinophils (Bld) [#/Vol] 0.1 103/mcL Normal 0.0 - 0.7 10^3/mcL Workflow SS Eosinophils/100 WBC (Bld) 1.9 % Normal 0.0 - 6.0 % Workflow SS Erythrocyte distribution width (RBC) [Ratio] 13.0 % Normal 11.5 - 15.5 % Workflow SS GFR/1.73 sq M.predicted among blacks MDRD (S/P/Bld) [Vol rate/Area] ml/min/1.73sqm Invalid Interpretation Code Chemistry S Comment on above: Interpretive Data: GFR Population mean for , Non- Americans Ages 20-29 = 116 mL/min/1.73 sq.m. Ages 30-39 = 107 mL/min/1.73 sq.m. Ages 40-49 = 99 mL/min/1.73 sq.m. Ages 50-59 = 93 mL/min/1.73 sq.m. Ages 60-69 = 85 mL/min/1.73 sq.m. Ages 70+ = 75 mL/min/1.73 sq.m. Chronic Kidney Disease: Less than 60 mL/min/1.73 square meters End Stage Renal Disease: Less than 15 mL/min/1.73 square meters GFR/1.73 sq M.predicted among non-blacks MDRD (S/P/Bld) [Vol rate/Area] ml/min/1.73sqm Invalid Interpretation Code Chemistry S Comment on above: Interpretive Data: GFR Population mean for , Non- Americans Ages 20-29 = 116 mL/min/1.73 sq.m. Ages 30-39 = 107 mL/min/1.73 sq.m. Ages 40-49 = 99 mL/min/1.73 sq.m. Ages 50-59 = 93 mL/min/1.73 sq.m. Ages 60-69 = 85 mL/min/1.73 sq.m. Ages 70+ = 75 mL/min/1.73 sq.m. Chronic Kidney Disease: Less than 60 mL/min/1.73 square meters End Stage Renal Disease: Less than 15 mL/min/1.73 square meters Glucose [Mass/Vol] 161 mg/dL High 82 - 115 mg/dL ADM SS Hematocrit (Bld) [Volume fraction] 42.3 % Normal 34.0 - 46.0 % AH Workflow SS Hemoglobin (Bld) [Mass/Vol] 14.4 G/dL Normal 12.0 - 16.0 G/dL AH Workflow SS Lymphocytes (Bld) [#/Vol] 1.3 103/mcL Normal 0.9 - 4.3 10^3/mcL AH Workflow SS Lymphocytes/100 WBC (Bld) 16.0 % Low 20.0 - 40.0 % Workflow SS MCH (RBC) [Entitic mass] 32.1 pg Normal 27.0 - 33.0 pg AH Workflow SS MCHC 34.1 G/dL Normal 32.0 - 36.0 G/dL Workflow SS MCV (RBC) [Entitic vol] 94.3 fL Normal 80.0 - 99.0 fL AH Workflow SS Monocytes (Bld) [#/Vol] 0.4 103/mcL Normal 0.1 - 1.4 10^3/mcL AH Workflow SS Monocytes/100 WBC (Bld) 5.6 % Normal 2.0 - 13.0 % AH Workflow SS Neutrophils (Bld) [#/Vol] 6.0 103/mcL Normal 2.3 - 8.1 10^3/mcL AH Workflow SS Neutrophils/100 WBC (Bld) 75.6 % High 50.0 - 75.0 % Workflow SS Platelet mean volume (Bld) [Entitic vol] 8.5 fL Normal 6.6 - 10.5 fL Workflow SS Platelets (Bld) [#/Vol] 211 103/mcL Normal 150 - 450 10^3/mcL AH Workflow SS Potassium [Moles/Vol] 4.1 mmol/L Normal 3.5 - 5.0 mEq/L ADM SS RBC (Bld) [#/Vol] 4.48 106/mcL Normal 4.10 - 5.3 0 10^6/mcL Workflow SS Sodium [Moles/Vol] 138 mmol/L Normal 136 - 145 mEq/L ADM SS Urea nitrogen [Mass/Vol] 12.0 mg/dL Normal 8.0 - 22.0 mg/dL ADM SS Urea nitrogen/Creatinine [Mass ratio] 17.6 ratio Normal 10.0 - 22.0 ratio ADM SS WBC (Bld) [#/Vol] 7.9 103/mcL Normal 4.5 - 10.8 10^3/mcL Workflow SS LABORATORYOrdered By: Nicko Martinez on 04-14-2023 PT Coag (PPP) [Time] 22.4 s High 9.0 - 1 4.2 seconds [facility] Comment on above: Interpretive Data: E ffective 08/22/07, Protime results may be affected by some antibiotics (i.e. Ciprofloxacin, Azithromycin, Bactrim) which may potentiate the action of oral 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, with further increases in Protime/INR. PT International Ratio 1.9 ratio Invalid Interpretation Code [facility] Comment on above: Interpretive Data: Higinio suarez [employer] (CHEST, 1991, 102:312S-25S) recommended therapeutic range for oral anticoagulant therapy is: LOW RISK: Prophylaxis of venous thrombosis INR: 2.0-3.0 Treatment of pulmonary embolism 2.0-3.0 Prevention of systemic embolism 2.0-3.0 HIGH RISK: Mechanical prosthetic valves 2.5-3.5 PROon 04-14-2023 INR Coag (PPP) [Relative time] 1.9 {INR} Normal [facility] ([place]) Comment on above: Result Comment: [employer] (CHEST, 1991, 102:312S-25S) recommended therapeutic range for oral anticoagulant therapy is: LOW RISK: Prophylaxis of venous thrombosis INR: 2.0-3.0 Treatment of pulmonary embolism 2.0-3.0 Prevention of systemic embolism 2.0-3.0 HIGH RISK: Mechanical prosthetic valves 2.5-3.5 Performed By: #### G FR, ANEU, BMP, CBC, PRO, ADIFF #### [facility] [address] [place] [id number] PT Coag (PPP) [Time] 22.4 s High 9.0-14.2 [facility] ([place]) Comment on above: Result Comment: Effe ctive 08/22/07, Protime results may be affected by some antibiotics (i.e. Ciprofloxacin, Azithromycin, Bactrim) which may potentiate the action of oral 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, with further increases in Protime/INR. Performed By: #### G FR, ANEU, BMP, CBC, PRO, ADIFF #### [facility] [address] [place] [address] .Auto Diffon 04-11-2023 Basophil, Absolute 0.1 10 3/mcL Normal 0.0-0.2 [facility] ([place] Comment on above: Performed By: #### H H, BMP, GFR #### [address] [address] Basophils/100 WBC (Bld) 0.8 % Normal 0.0-2.5 A [facility] ([place]) Comment on above: Performed By: #### H H, BMP, GFR #### [address] [address] Eosinophil, Absolute 0.1 10 3/mcL Normal 0.0-0.4 [facility] ([place]) Comment on above: Performed By: #### H H, BMP, GFR #### [address] [address] Eosinophils/100 WBC (Bld) 1.4 % Normal 0.0-7.0 [facility] ([place] Comment on above: Performed By: #### H H, BMP, GFR #### [address] [address] Lymphocyte, Absolute 1.3 10 3/mcL Normal 0.8-3.9 [facility] ([place] Comment on above: Performed By: #### H H, BMP, GFR #### [address] [address] Lymphocytes/100 WBC (Bld) 12.9 % Normal 10.0-50.0 [facility] ([place] Comment on above: Performed By: #### H H, BMP, GFR #### [address] [address] Monocyte, Absolute 0.4 10 3/mcL Normal 0.2-1.0 [facility] ([place] Comment on above: Performed By: #### H H, BMP, GFR #### [address] [address] Monocytes/100 WBC (Bld) 4.6 % Normal 1.7-13.0 [facility] ([place] Comment on above: Performed By: #### H H, BMP, GFR #### [address] [address] Neutrophils/100 WBC (Bld) 80.3 % High 37.0-80.0 [facility] ([place] Comment on above: Performed By: #### H H, BMP, GFR #### [address] [address] .GFRon 04-11-2023 GFR 74 ml/min/1.73sqm Normal [facility] ([place] Comment on above: Result Comment: GFR Population mean for , Non- Americans Ages 20-29 = 116 mL/min/1.73 sq.m. Ages 30-39 = 107 mL/min/1.73 sq.m. Ages 40-49 = 99 mL/min/1.73 sq.m. Ages 50-59 = 93 mL/min/1.73 sq.m. Ages 60-69 = 85 mL/min/1.73 sq.m. Ages 70+ = 75 mL/min/1.73 sq.m. Chronic Kidney Disease: Less than 60 mL/min/1.73 square meters End Stage Renal Disease: Less than 15 mL/min/1.73 square meters Performed By: #### H H, BMP, GFR #### [address] [address] GFR Non- 61 ml/min/1.73sqm Normal [facility] ([place] Comment on above: Result Comment: GFR Population mean for , Non- Americans Ages 20-29 = 116 mL/min/1.73 sq.m. Ages 30-39 = 107 mL/min/1.73 sq.m. Ages 40-49 = 99 mL/min/1.73 sq.m. Ages 50-59 = 93 mL/min/1.73 sq.m. Ages 60-69 = 85 mL/min/1.73 sq.m. Ages 70+ = 75 mL/min/1.73 sq.m. Chronic Kidney Disease: Less than 60 mL/min/1.73 square meters End Stage Renal Disease: Less than 15 mL/min/1.73 square meters Performed By: #### H H, BMP, GFR #### [address] [address] .MDWon 04-11-2023 Monocyte Distribution Width 17.55 Normal 0.00-20.00 [facility] ([place] Comment on above: Result Comment: For ED adult patients suspected of sepsis, MDW<=20.0 does not rule out sepsis or risk of sepsis Performed By: #### H H, BMP, GFR #### [address] [place], [place] [address] .NEUABSon 04-11-2023 Neutrophil, Absolute 7.9 10 3/mcL High 2.9-6.2 [facility] ([place] Comment on above: Performed By: #### H H, BMP, GFR #### [address] [address] BMPon 04-11-2023 BUN/Creatinine Ratio 13 ratio Normal 7-27 [facility] ([place] Comment on above: Performed By: #### H H, BMP, GFR #### [address] [address] Calcium [Mass/Vol] 8.4 mg/dL Normal 8.4-10.2 On license of [facility] ([place]) Comment on above: Performed By: #### H H, BMP, GFR #### [address] [address] Chloride [Moles/Vol] 97 mmol/L Low 98-107 [facility] ([place] Comment on above: Performed By: #### H H, BMP, GFR #### [address] [address] CO2 [Moles/Vol] 27 mmol/L Normal 23-31 [facility] ([place] Comment on above: Performed By: #### H H, BMP, GFR #### [address] [address] Creatinine [Mass/Vol] 0.90 mg/dL Normal 0.55-1.02 [facility] ([place]) Comment on above: Performed By: #### H H, BMP, GFR #### [address] [address] Electrolyte Balance 9.0 mEq/L Normal 4.0-15.0 [facility] ([place]) Comment on above: Performed By: #### H H, BMP, GFR #### [address] [address] Glucose [Mass/Vol] 256 mg/dL High 83-110 On license of [facility] ([place]) Comment on above: Performed By: #### H H, BMP, GFR #### [address] [address] Potassium [Moles/Vol] 4.1 mmol/L Normal 3.5-5.1 [facility] ([place] Comment on above: Performed By: #### ROSALBA Guerrero, GFR #### [address] [address] Sodium [Moles/Vol] 133 mmol/L Low 136-145 On license of [facility] ([place]) Comment on above: Performed By: #### ROSALBA Guerrero, GFR #### [address] [address] Urea nitrogen [Mass/Vol] 12 mg/dL Normal 7-18 [facility] ([place] Comment on above: Performed By: #### ROSALBA Guerrero, GFR #### [address] [address] CBCon 04-11-2023 Erythrocyte distribution width (RBC) [Ratio] 13.2 % Normal 11.5-14.5 [facility] ([place] Comment on above: Performed By: #### ROSALBA Guerrero, GFR #### [address] [address] Hematocrit (Bld) [Volume fraction] 41.4 % Normal 37.0-47.0 [facility] ([place] Comment on above: Performed By: #### ROSALBA Guerrero, GFR #### [address] [address] Hgb 14.4 G/dL Normal 12.0-16.0 [facility] [place] Comment on above: Performed By: #### ROSALBA Guerrero, GFR #### [address] [address] MCH (RBC) [Entitic mass] 32.2 pg High 27.0-31.2 [facility] [place] Comment on above: Performed By: #### ROSALBA Guerrero, GFR #### [address] [address] MCHC 34.8 G/dL Normal 33.0-37.0 [facility] [place] Comment on above: Performed By: #### H H, BMP, GFR #### [address] [address] MCV (RBC) [Entitic vol] 92.6 fL Normal 80.0-94.0 [facility] ([place] Comment on above: Performed By: #### H H, BMP, GFR #### [address] [address] Platelet 186 10 3/mcL Normal 130-400 [facility] [place] Comment on above: Performed By: #### H H, BMP, GFR #### [address] [address] Platelet mean volume (Bld) [Entitic vol] 7.8 fL Normal 7.4-10.4 [facility] [place] Comment on above: Performed By: #### H H, BMP, GFR #### [address] [address] RBC 4.47 10 6/mcL Normal 4.20-5.40 [facility] [place] Comment on above: Performed By: #### H H, BMP, GFR #### [address] [address] WBC 9.8 10 3/mcL Normal 4.6-10.8 [facility] [place] Comment on above: Performed By: #### H H, BMP, GFR #### [address] [address] [address] HEAD OR BRAIN W/O CONTRAS Ton 04-11-2023 CT HEAD OR BRAIN W/O CONTRAST ORIGINAL HISTORY: Fall COMPARISON: 27 Jun 2022 TECHNIQUE: Routine non-contrast head CT with sagittal and coronal reconstructions This exam was performed according to our departmental dose optimization program, and includes the following measures where applicable: automated exposure control, adjustment of the mAs and/or kVp according to patient size and/or exam, and an iterative reconstruction algorithm. FINDINGS: The ventricles and sulci are mildly enlarged. There are no abnormal intra or extra-axial fluid collections. There is moderate irregular decreased attenuation in the cerebral white matter. Oliveira-white matter differentiation is maintained. The calvaria and the bones of the base of the skull are intact. IMPRESSION: Volume loss and small vessel ischemic disease. No significant interval change. Interpreted by: Marlon Hill MD Preliminary Report By: Marlon Hill MD Electronically signed By Marlon Hill MD Dictated Date: 04/11/2023 11:36:43 AM Prelim Date: 04/11/2023 11:38:02 AM Sign Date: 04/11/2023 11:38:02 AM Ordering Provider: ELADIO JAYCE [facility] ([place]) LABORATORYOrdered By: SYSTEM SYSTEM on 04-11-2023 Basophil, Absolute 0.1 103/mcL Normal 0.0 - 0.2 10^3/mcL AO Workflow SS Basophils/100 WBC (Bld) 0.8 % Normal 0.0 - 2.5 % AO Workflow SS Calcium [Mass/Vol] 8.4 mg/dL Normal 8.4 - 10. 2 mg/dL AO ADM SS Chloride [Moles/Vol] 97 mmol/L Low 98 - 10 7 mmol/L AO ADM SS CO2 [Moles/Vol] 27 mmol/L Normal 23 - 31 mmol/L AO ADM SS Creatinine [Mass/Vol] 0.90 mg/dL Normal 0.55 - 1.02 mg/dL AO ADM SS Electrolyte Balance 9.0 mEq/L Normal 4.0 - 15 .0 mEq/L AO ADM SS Eosinophil, Absolute 0.1 103/mcL Normal 0.0 - 0 .4 10^3/mcL AO Workflow SS Eosinophils/100 WBC (Bld) 1.4 % Normal 0.0 - 7.0 % AO Workflow SS Erythrocyte distribution width (RBC) [Ratio] 13.2 % Normal 11.5 - 14.5 % AO Workflow SS GFR/1.73 sq M.predicted among blacks MDRD (S/P/Bld) [Vol rate/Area] 74 ml/min/1.73sqm Invalid Interpretation Code AO Chemistry S Comment on above: Interpretive Data: GFR Population mean for , Non- Americans Ages 20-29 = 116 mL/min/1.73 sq.m. Ages 30-39 = 107 mL/min/1.73 sq.m. Ages 40-49 = 99 mL/min/1.73 sq.m. Ages 50-59 = 93 mL/min/1.73 sq.m. Ages 60-69 = 85 mL/min/1.73 sq.m. Ages 70+ = 75 mL/min/1.73 sq.m. Chronic Kidney Disease: Less than 60 mL/min/1.73 square meters End Stage Renal Disease: Less than 15 mL/min/1.73 square meters GFR/1.73 sq M.predicted among non-blacks MDRD (S/P/Bld) [Vol rate/Area] 61 ml/min/1.73sqm Invalid Interpretation Code AO Chemistry S Comment on above: Interpretive Data: GFR Population mean for , Non- Americans Ages 20-29 = 116 mL/min/1.73 sq.m. Ages 30-39 = 107 mL/min/1.73 sq.m. Ages 40-49 = 99 mL/min/1.73 sq.m. Ages 50-59 = 93 mL/min/1.73 sq.m. Ages 60-69 = 85 mL/min/1.73 sq.m. Ages 70+ = 75 mL/min/1.73 sq.m. Chronic Kidney Disease: Less than 60 mL/min/1.73 square meters End Stage Renal Disease: Less than 15 mL/min/1.73 square meters Glucose [Mass/Vol] 256 mg/dL High 83 - 110 mg/dL AO ADM SS Hematocrit (Bld) [Volume fraction] 41.4 % Normal 37.0 - 47.0 % AO Workflow SS Hemoglobin (Bld) [Mass/Vol] 14.4 G/dL Normal 12.0 - 16.0 G/dL AO Workflow SS Lymphocyte, Absolute 1.3 103/mcL Normal 0.8 - 3 .9 10^3/mcL AO Workflow SS Lymphocytes/100 WBC (Bld) 12.9 % Normal 10.0 - 50.0 % AO Workflow SS MCH (RBC) [Entitic mass] 32.2 pg High 27.0 - 31.2 pg AO Workflow SS MCHC 34.8 G/dL Normal 33.0 - 37.0 G/dL AO Workflow SS MCV (RBC) [Entitic vol] 92.6 fL Normal 80.0 - 94.0 fL AO Workflow SS Monocyte distribution width Auto (Bld) [Entitic vol] 17.55 1 Normal 0.00 - 20.00 AO Workflow SS Comment on above: Result Comment: For ED adult patients suspected of sepsis, MDW<=20.0 does not rule out sepsis or risk of sepsis Monocyte, Absolute 0.4 103/mcL Normal 0.2 - 1.0 10^3/mcL AO Workflow SS Monocytes/100 WBC (Bld) 4.6 % Normal 1.7 - 13.0 % AO Workflow SS Neutrophil, Absolute 7.9 103/mcL High 2.9 - 6 .2 10^3/mcL AO Workflow SS Neutrophils/100 WBC (Bld) 80.3 % High 37.0 - 80.0 % AO Workflow SS Platelet mean volume (Bld) [Entitic vol] 7.8 fL Normal 7.4 - 10.4 fL AO Workflow SS Platelets (Bld) [#/Vol] 186 103/mcL Normal 130 - 400 10^3/mcL AO Workflow SS Potassium [Moles/Vol] 4.1 mmol/L Normal 3.5 - 5.1 mmol/L AO ADM SS RBC (Bld) [#/Vol] 4.47 106/mcL Normal 4.20 - 5.4 0 10^6/mcL AO Workflow SS Sodium [Moles/Vol] 133 mmol/L Low 136 - 145 mmol/L AO ADM SS Urea nitrogen [Mass/Vol] 12 mg/dL Normal 7 - 18 mg/dL AO ADM SS Urea nitrogen/Creatinine [Mass ratio] 13 ratio Normal 7 - 27 ratio AO ADM SS WBC (Bld) [#/Vol] 9.8 103/mcL Normal 4.6 - 10.8 10^3/mcL AO Workflow SS LABORATORYOrdered By: Axel cordova on 04-11-2023 INR Coag (PPP) [Relative time] 2.1 {INR} Invalid Interpretation Code AO [facility] SS Comment on above: Interpretive Data: Higinio suarez [employer] (CHEST, 1991, 102:312S-25S) recommended therapeutic range for oral anticoagulant therapy is: LOW RISK: Prophylaxis of venous thrombosis INR: 2.0-3.0 Treatment of pulmonary embolism 2.0-3.0 Prevention of systemic embolism 2.0-3.0 HIGH RISK: Mechanical prosthetic valves 2.5-3.5 PT Coag (PPP) [Time] 23.9 s High 9.0 - 1 4.2 seconds AO [facility] SS PROon 04-11-2023 PT Coag (PPP) [Time] 23.9 s High 9.0-14.2 [facility] ([place] Comment on above: Performed By: #### H ROSALBA Palacio, GFR #### [address] [address] PT International Ratio 2.1 Normal [facility] ([place]) Comment on above: Result Comment: [employer] [employer] (CHEST, 1991, 102:312S-25S) recommended therapeutic range for oral anticoagulant therapy is: LOW RISK: Prophylaxis of venous thrombosis INR: 2.0-3.0 Treatment of pulmonary embolism 2.0-3.0 Prevention of systemic embolism 2.0-3.0 HIGH RISK: Mechanical prosthetic valves 2.5-3.5 Performed By: #### H ROSALBA Palacio, GFR #### [address] [address] .Auto Diffon 03-09-2023 Basophil, Absolute 0.1 10 3/mcL Normal 0.0-0.2 [facility] ([place] Comment on above: Performed By: #### P RO #### [address] [address] Basophils/100 WBC (Bld) 1.0 % Normal 0.0-2.5 [facility] ([place] Comment on above: Performed By: #### P RO #### [address] [address] Eosinophil, Absolute 0.1 10 3/mcL Normal 0.0-0.4 [facility] ([place] Comment on above: Performed By: #### P RO #### [address] [address] Eosinophils/100 WBC (Bld) 1.7 % Normal 0.0-7.0 [facility] ([place] Comment on above: Performed By: #### P RO #### [address] [address] Lymphocyte, Absolute 1.9 10 3/mcL Normal 0.8-3.9 [facility] ([place] Comment on above: Performed By: #### P RO #### [address] [address] Lymphocytes/100 WBC (Bld) 24.9 % Normal 10.0-50.0 [facility] [place] Comment on above: Performed By: #### P RO #### [address] [address] Monocyte, Absolute 0.5 10 3/mcL Normal 0.2-1.0 [facility] [place] Comment on above: Performed By: #### P RO #### [address] [address] Monocytes/100 WBC (Bld) 5.9 % Normal 1.7-13.0 [facility] ([place] Comment on above: Performed By: #### P RO #### [address] [address] Neutrophils/100 WBC (Bld) 66.5 % Normal 37.0-80.0 [facility] [place] Comment on above: Performed By: #### P RO #### [address] [address] .GFRon 03-09-2023 GFR Non- 77 ml/min/1.73sqm Normal [facility] ([place] Comment on above: Result Comment: GFR Population mean for , Non- Americans Ages 20-29 = 116 mL/min/1.73 sq.m. Ages 30-39 = 107 mL/min/1.73 sq.m. Ages 40-49 = 99 mL/min/1.73 sq.m. Ages 50-59 = 93 mL/min/1.73 sq.m. Ages 60-69 = 85 mL/min/1.73 sq.m. Ages 70+ = 75 mL/min/1.73 sq.m. Chronic Kidney Disease: Less than 60 mL/min/1.73 square meters End Stage Renal Disease: Less than 15 mL/min/1.73 square meters Performed By: #### G FR, ANEU, BMP, CBC, PRO, ADIFF #### [address] [address] GFR 93 ml/min/1.73sqm Normal [facility] ([place] Comment on above: Result Comment: GFR Population mean for , Non- Americans Ages 20-29 = 116 mL/min/1.73 sq.m. Ages 30-39 = 107 mL/min/1.73 sq.m. Ages 40-49 = 99 mL/min/1.73 sq.m. Ages 50-59 = 93 mL/min/1.73 sq.m. Ages 60-69 = 85 mL/min/1.73 sq.m. Ages 70+ = 75 mL/min/1.73 sq.m. Chronic Kidney Disease: Less than 60 mL/min/1.73 square meters End Stage Renal Disease: Less than 15 mL/min/1.73 square meters Performed By: #### G FR, ANEU, BMP, CBC, PRO, ADIFF #### [place] [address] .Morphon 03-09-2023 Platelet Estimate Normal Normal [facility]) Comment on above: Performed By: #### P RO #### [address] [address] .NEUABSon 03-09-2023 Neutrophil, Absolute 5.1 10 3/mcL Normal 2.9-6.2 [facility] ([place] Comment on above: Performed By: #### P RO #### [address] [address] CBCon 03-09-2023 Erythrocyte distribution width (RBC) [Ratio] 13.1 % Normal 11.5-14.5 [facility]) Comment on above: Performed By: #### P RO #### [address] [address] Hematocrit (Bld) [Volume fraction] 44.8 % Normal 37.0-47.0 [facility] ([place] Comment on above: Performed By: #### P RO #### [address] [address] Hgb 15.5 G/dL Normal 12.0-16.0 [facility] [place] Comment on above: Performed By: #### P RO #### [address] [address] MCH (RBC) [Entitic mass] 32.3 pg High 27.0-31.2 [facility] [place] Comment on above: Performed By: #### P RO #### [address] [address] MCHC 34.5 G/dL Normal 33.0-37.0 [facility] [place] Comment on above: Performed By: #### P RO #### [address] [address] MCV (RBC) [Entitic vol] 93.6 fL Normal 80.0-94.0 [facility] ([place] Comment on above: Performed By: #### P RO #### [address] [address] Platelet 247 10 3/mcL Normal 130-400 [facility] ([place] Comment on above: Performed By: #### P RO #### [address] [address] Platelet mean volume (Bld) [Entitic vol] 8.4 fL Normal 7.4-10.4 [facility] ([place] Comment on above: Performed By: #### P RO #### [address] [address] RBC 4.79 10 6/mcL Normal 4.20-5.40 [facility] [place] Comment on above: Performed By: #### P RO #### [address] [address] WBC 7.7 10 3/mcL Normal 4.6-10.8 [facility] [place] Comment on above: Performed By: #### P RO #### [address] [address] CMPon 03-09-2023 Albumin Level 3.6 G/dL Normal 3.4-4.8 [facility] ([place] Comment on above: Performed By: #### P RO #### [address] [address] Albumin/Globulin [Mass ratio] 1.1 {ratio} Normal 1.1-2.5 [facility] ([place] Comment on above: Performed By: #### P RO #### [address] [address] ALP [Catalytic activity/Vol] 110 U/L Normal 40-135 [facility] ([place] Comment on above: Performed By: #### P RO #### [address] [address] ALT [Catalytic activity/Vol] 28 U/L Normal 14-59 [facility] ([place] Comment on above: Performed By: #### P RO #### [address] [address] AST [Catalytic activity/Vol] 29 U/L Normal 10-40 [facility] [place] Comment on above: Performed By: #### P RO #### [address] [address] Bili Total 0.5 mg/dL Normal 0.2-1.0 [facility] ([place] Comment on above: Result Comment: Use of this assay is not recommended for patients undergoing treatment with eltrombopag due to the potential for falsely elevated results. Performed By: #### P RO #### [address] [address] BUN/Creatinine Ratio 19 ratio Normal 7-27 [facility] ([place] Comment on above: Performed By: #### P RO #### [address] [address] Calcium [Mass/Vol] 9.1 mg/dL Normal 8.4-10.2 On license of [facility] ([place]) Comment on above: Performed By: #### P RO #### [address] [address] Chloride [Moles/Vol] 98 mmol/L Normal 98-107 [facility] ([place] Comment on above: Performed By: #### P RO #### [address] [address] CO2 [Moles/Vol] 30 mmol/L Normal 23-31 [facility] [place] Comment on above: Performed By: #### P RO #### [address] [address] Creatinine [Mass/Vol] 0.74 mg/dL Normal 0.55-1.02 [facility] ([place] Comment on above: Performed By: #### P RO #### [address] [address] Electrolyte Balance 10.0 mEq/L Normal 4.0-15.0 [facility] ([place] Comment on above: Performed By: #### P RO #### [address] [address] Globulin 3.4 G/dL Normal [facility] [place] Comment on above: Performed By: #### P RO #### [address] [address] Glucose [Mass/Vol] 138 mg/dL High 83-110 On license of [facility] ([place]) Comment on above: Performed By: #### P RO #### [address] [address] Potassium [Moles/Vol] 4.4 mmol/L Normal 3.5-5.1 [facility] ([place] Comment on above: Performed By: #### P RO #### [address] [address] Sodium [Moles/Vol] 138 mmol/L Normal 136-145 On license of [facility] ([place] Comment on above: Performed By: #### P RO #### [address] [address] Total Protein 7.0 G/dL Normal 6.4-8.2 [facility] [place] Comment on above: Performed By: #### P RO #### [address] [address] Urea nitrogen [Mass/Vol] 14 mg/dL Normal 7-18 [facility] [place] Comment on above: Performed By: #### P RO #### [address] [address] LABORATORYOrdered By: SYSTEM SYSTEM on 03-09-2023 Albumin BCP dye [Mass/Vol] 3.6 G/dL Normal 3.4 - 4.8 G/dL AO ADM SS Albumin/Globulin [Mass ratio] 1.1 {ratio} Normal 1.1 - 2.5 ratio AO ADM SS ALP [Catalytic activity/Vol] 110 U/L Normal 40 - 135 U/L AO ADM SS ALT With P-5'-P [Catalytic activity/Vol] 28 U/L Normal 14 - 59 U/L AO ADM SS AST With P-5'-P [Catalytic activity/Vol] 29 U/L Normal 10 - 40 U/L AO ADM SS Basophil, Absolute 0.1 103/mcL Normal 0.0 - 0.2 10^3/mcL AO Workflow SS Basophils/100 WBC (Bld) 1.0 % Normal 0.0 - 2.5 % AO Workflow SS Bilirubin [Mass/Vol] 0.5 mg/dL Normal 0.2 - 1 .0 mg/dL AO ADM SS Comment on above: Interpretive Data: U se of this assay is not recommended for patients undergoing treatment with eltrombopag due to the potential for falsely elevated results. Calcium [Mass/Vol] 9.1 mg/dL Normal 8.4 - 10. 2 mg/dL AO ADM SS Chloride [Moles/Vol] 98 mmol/L Normal 98 - 10 7 mmol/L AO ADM SS CO2 [Moles/Vol] 30 mmol/L Normal 23 - 31 mmol/L AO ADM SS Creatinine [Mass/Vol] 0.74 mg/dL Normal 0.55 - 1.02 mg/dL AO ADM SS Electrolyte Balance 10.0 mEq/L Normal 4.0 - 15 .0 mEq/L AO ADM SS Eosinophil, Absolute 0.1 103/mcL Normal 0.0 - 0 .4 10^3/mcL AO Workflow SS Eosinophils/100 WBC (Bld) 1.7 % Normal 0.0 - 7.0 % AO Workflow SS Erythrocyte distribution width (RBC) [Ratio] 13.1 % Normal 11.5 - 14.5 % AO Workflow SS GFR/1.73 sq M.predicted among blacks MDRD (S/P/Bld) [Vol rate/Area] 93 ml/min/1.73sqm Invalid Interpretation Code AO Chemistry S Comment on above: Interpretive Data: GFR Population mean for , Non- Americans Ages 20-29 = 116 mL/min/1.73 sq.m. Ages 30-39 = 107 mL/min/1.73 sq.m. Ages 40-49 = 99 mL/min/1.73 sq.m. Ages 50-59 = 93 mL/min/1.73 sq.m. Ages 60-69 = 85 mL/min/1.73 sq.m. Ages 70+ = 75 mL/min/1.73 sq.m. Chronic Kidney Disease: Less than 60 mL/min/1.73 square meters End Stage Renal Disease: Less than 15 mL/min/1.73 square meters GFR/1.73 sq M.predicted among non-blacks MDRD (S/P/Bld) [Vol rate/Area] 77 ml/min/1.73sqm Invalid Interpretation Code AO Chemistry S Comment on above: Interpretive Data: GFR Population mean for , Non- Americans Ages 20-29 = 116 mL/min/1.73 sq.m. Ages 30-39 = 107 mL/min/1.73 sq.m. Ages 40-49 = 99 mL/min/1.73 sq.m. Ages 50-59 = 93 mL/min/1.73 sq.m. Ages 60-69 = 85 mL/min/1.73 sq.m. Ages 70+ = 75 mL/min/1.73 sq.m. Chronic Kidney Disease: Less than 60 mL/min/1.73 square meters End Stage Renal Disease: Less than 15 mL/min/1.73 square meters Globulin 3.4 G/dL Invalid Interpretation Code AO ADM SS Glucose [Mass/Vol] 138 mg/dL High 83 - 110 mg/dL AO ADM SS Hematocrit (Bld) [Volume fraction] 44.8 % Normal 37.0 - 47.0 % AO Workflow SS Hemoglobin (Bld) [Mass/Vol] 15.5 G/dL Normal 12.0 - 16.0 G/dL AO Workflow SS Lymphocyte, Absolute 1.9 103/mcL Normal 0.8 - 3 .9 10^3/mcL AO Workflow SS Lymphocytes/100 WBC (Bld) 24.9 % Normal 10.0 - 50.0 % AO Workflow SS MCH (RBC) [Entitic mass] 32.3 pg High 27.0 - 31.2 pg AO Workflow SS MCHC 34.5 G/dL Normal 33.0 - 37.0 G/dL AO Workflow SS MCV (RBC) [Entitic vol] 93.6 fL Normal 80.0 - 94.0 fL AO Workflow SS Monocyte, Absolute 0.5 103/mcL Normal 0.2 - 1.0 10^3/mcL AO Workflow SS Monocytes/100 WBC (Bld) 5.9 % Normal 1.7 - 13.0 % AO Workflow SS Neutrophil, Absolute 5.1 103/mcL Normal 2.9 - 6 .2 10^3/mcL AO Workflow SS Neutrophils/100 WBC (Bld) 66.5 % Normal 37.0 - 80.0 % AO Workflow SS Platelet mean volume (Bld) [Entitic vol] 8.4 fL Normal 7.4 - 10.4 fL AO Workflow SS Platelets (Bld) [#/Vol] 247 103/mcL Normal 130 - 400 10^3/mcL AO Workflow SS Potassium [Moles/Vol] 4.4 mmol/L Normal 3.5 - 5.1 mmol/L AO ADM SS Protein [Mass/Vol] 7.0 G/dL Normal 6.4 - 8.2 G/dL AO ADM SS RBC (Bld) [#/Vol] 4.79 106/mcL Normal 4.20 - 5.4 0 10^6/mcL AO Workflow SS Sodium [Moles/Vol] 138 mmol/L Normal 136 - 145 mmol/L AO ADM SS TSH Qn 0.93 m[IU]/L Normal 0.36 - 3.74 mcIU/mL AO ADM SS Urea nitrogen [Mass/Vol] 14 mg/dL Normal 7 - 18 mg/dL AO ADM SS Urea nitrogen/Creatinine [Mass ratio] 19 ratio Normal 7 - 27 ratio AO ADM SS WBC (Bld) [#/Vol] 7.7 103/mcL Normal 4.6 - 10.8 10^3/mcL AO Workflow SS LABORATORYOrdered By: Molina Messina on 03-09-2023 INR Coag (PPP) [Relative time] 2.0 {INR} Invalid Interpretation Code AO [facility] SS Comment on above: Interpretive Data: Higinio suarez [employer] (CHEST, 1991, [id number]) recommended therapeutic range for oral anticoagulant therapy is: LOW RISK: Prophylaxis of venous thrombosis INR: 2.0-3.0 Treatment of pulmonary embolism 2.0-3.0 Prevention of systemic embolism 2.0-3.0 HIGH RISK: Mechanical prosthetic valves 2.5-3.5 PT Coag (PPP) [Time] 23.6 s High 9.0 - 1 4.2 seconds AO [facility] SS LABORATORYOrdered By: Lilia Castaneda on 03-09-2023 Platelet Estimate Normal (03/09/23 10:57 AM) Normal AO Hematology S PROon 03-09-2023 PT Coag (PPP) [Time] 23.6 s High 9.0-14.2 [facility] ([place]) Comment on above: Performed By: #### P RO #### [address] [id number] PT International Ratio 2.0 Normal [facility] ([place]) Comment on above: Result Comment: [employer] (CHEST, 1992, [id number]) recommended therapeutic range for oral anticoagulant therapy is: LOW RISK: Prophylaxis of venous thrombosis INR: 2.0-3.0 Treatment of pulmonary embolism 2.0-3.0 Prevention of systemic embolism 2.0-3.0 HIGH RISK: Mechanical prosthetic valves 2.5-3.5 Performed By: #### P RO #### [address] [address] TSHon 03-09-2023 TSH Qn 0.93 m[IU]/L Normal 0.36-3.74 [facility] ([place]) Comment on above: Performed By: #### P RO #### [address] [address] Absolute lymphocyte countOrd ered By: Tod Ghotra on 01-21-2023 Lymphocytes Auto (Unsp spec) [#/Vol] 1.57 10*3/uL 0.83-4.51 [facility] Basophil percentageOrdered B y: Tod Ghotra on 01-21-2023 Basophil percentage 0-5 SEEN /hpf 0-5 [facility] Basophils/100 WBC (Bld) 1.2 % 0-1 [facility] Bilirubin [Mass/Vol] 0.40 mg/dL 0.20-1.00 [facility] Comment on above: For patients on eltr ombopag therapy, use of Dimension [place] TBIL is not recommended. Chloride [Moles/Vol] 100 mmol/L 98-107 [facility] Eosinophils/100 WBC (Bld) 1.4 % 0-5 [facility] Glucose [Mass/Vol] 173 mg/dL 74-106 [facility] Comment on above: Fasting Glucose resu lt greater than or equal to 126 mg/dL suggests DIABETES MELLITUS per A.D.A. criteria. Neutrophils (Bld) [#/Vol] 4.3 10*3/uL 2.0-7.7 [facility] Neutrophils/100 WBC (Bld) 64.2 % 47-70 [facility] Potassium [Moles/Vol] 3.6 mmol/L 3.5-5.1 [facility] Protein [Mass/Vol] 7.1 g/dL 6.4-8.2 [facility] Sodium [Moles/Vol] 137 mmol/L 136-145 [facility] WBC (Bld) [#/Vol] 6.6 10*3/uL 4.4-11.0 [facility] Bilirubin Test strip Ql (U)O rdered By: Tod Ghotra on 01-21-2023 Bilirubin Ql (U) Negative Negative [facility] Blood erythrocytes count (nu mber/volume)Ordered By: Tod Ghotra on 01-21-2023 RBC (Bld) [#/Vol] 4.80 10*6/uL 4.2-5.4 [facility] Blood hemoglobin measurement (mass/volume)Ordered By: Tod Gohtra on 01-21-2023 Hemoglobin (Bld) [Mass/Vol] 15.0 g/dL 12.0-15.0 [facility] Blood lymphocytes/100 leukoc ytesOrdered By: Tod Ghotra on 01-21-2023 Lymphocytes/100 WBC (Bld) 23.6 % 19-41 [facility] Blood monocytes/100 leukocyt esOrdered By: Tod Ghotra on 01-21-2023 Monocytes/100 WBC (Bld) 9.0 % 0-10 [facility] Blood platelet mean volumeOr dered By: Tod Ghotra on 01-21-2023 Platelet mean volume (Bld) [Entitic vol] 9.8 fL 6.2-12.0 [facility] Determination of erythrocyte mean corpuscular volume (MCV)Ordered By: Tod Ghotra on 01-21-2023 MCV (RBC) [Entitic vol] 94.2 fL 81-99 [facility] Hematocrit Auto (Bld) [Volum e fraction]Ordered By: Tod Ghotra on 01-21-2023 Hematocrit (Bld) [Volume fraction] 45.2 % 37-47 [facility] INR in Blood by Coagulation assayOrdered By: Tod Ghotra on 01-21-2023 INR Coag (Bld) [Relative time] 1.3 {INR} [facility] Ketones Test strip Ql (U)Ord ered By: Tod Ghotra on 01-21-2023 Ketones Ql (U) Negative Negative [facility] Laboratory - Chemistry and C hemistry - challengeOrdered By: Tod Ghotra on 01-21-2023 ALP [Catalytic activity/Vol] 98 U/L 45-117 [facility] ALT [Catalytic activity/Vol] 24 U/L 13-56 [facility] CO2 [Moles/Vol] 30.0 mmol/L 21.0-32.0 [facility] Globulin (S) [Mass/Vol] 3.5 g/dL 2.2-4.2 [facility] Urea nitrogen/Creatinine [Mass ratio] 15.9 mg/mg 10-20 [facility] Laboratory - CoagulationOrde red By: Tod Ghotra on 01-21-2023 PT Coag (PPP) [Time] 16.3 s 11.7-14.9 [facility] Laboratory - Hematology and Cell countsOrdered By: Tod Ghotra on 01-21-2023 Erythrocyte distribution width (RBC) [Entitic vol] 43.8 fL 35.1-43.9 [facility] Erythrocyte distribution width (RBC) [Ratio] 12.6 % 11.6-14.6 [facility] Immature granulocytes/100 WBC (Bld) 0.600 % 0.0-0.9 [facility] Comment on above: IG% - Immature Granu locytes (promyelocytes, myelocytes and metamyelocytes) > 1% indicates that a LEFT SHIFT is Present. MCH (RBC) [Entitic mass] 31.3 pg 27.0-32.0 [facility] Nucleated RBC/100 WBC (Bld) [Ratio] 0 % 0-5 [facility] MCHC Auto (RBC) [Mass/Vol]Or dered By: Tod Ghotra on 01-21-2023 MCHC (RBC) [Mass/Vol] 33.2 g/dL 32-36 [facility] Mucus LM Ql (Urine sed)Order ed By: Tod Ghotra on 01-21-2023 Mucus Ql (Urine sed) 0 SEEN /hpf [facility] Nitrite Test strip Ql (U)Ord ered By: Tod Ghotra on 01-21-2023 Nitrite Ql (U) Negative Negative [facility] No Panel InformationOrdered By: Tod Ghotra on 01-21-2023 Troponin I High Sensitivity 87 pg/mL 3.0-54.0 [facility] Comment on above: Please Note: [place] t Units and Gender Specific Reference Ranges. For more information see Policy Stat Procedure [place] High Sensitivity Troponin (TNIH) and attachments. Estimated Creatinine Clearance Calc 39.63 ml/min [facility] Estimated GFR (MDRD) Amer 97 mL/min >60 [facility] Comment on above: GFR Calc Estimated GFR (MDRD) Non-Af Amer 80 mL/min >60 [facility] Comment on above: Non- GFR Calc Platelets bldOrdered By: Armand Ghotra on 01-21-2023 Platelets (Bld) [#/Vol] 226 10*3/uL 150-450 [facility] Protein Test strip Ql (U)Ord ered By: Tod Ghotra on 01-21-2023 Protein Ql (U) 30 mg/dl Negative [facility] Serum or plasma albumin tres urement (mass/volume)Ordered By: Tod Ghotra on 01-21-2023 Albumin [Mass/Vol] 3.6 g/dL 3.2-5.0 [facility] Serum or plasma albumin/glob ulin mass ratioOrdered By: Tod Ghotra on 01-21-2023 Albumin/Globulin [Mass ratio] 1.0 {ratio} 0.9-2.4 [facility] Serum or plasma calcium tres urement (mass/volume)Ordered By: Tod Ghotra on 01-21-2023 Calcium [Mass/Vol] 9.1 mg/dL 8.5-10.1 [facility] Serum or plasma creatinine m easurement (mass/volume)Ordered By: Tod Ghotra on 01-21-2023 Creatinine [Mass/Vol] 0.75 mg/dL 0.55-1.02 [facility] Comment on above: The validity of the calculated GFR & GFRAA in patients over 70 years has not been determined. Clinical correlation is essential. Serum or plasma urea nitroge n measurement (mass/volume)Ordered By: Tod Ghotra on 01-21-2023 Urea nitrogen [Mass/Vol] 12 mg/dL 7-18 [facility] Squamous epithelial cells de tection in urine sediment by light microscopyOrdered By: Tod Ghotra on 01-21-2023 Epithelial cells.squamous LM Ql (Urine sed) 5-10 SEEN /hpf 5-10 [facility] Thin prep Papanicolaou smear with manual screeningOrdered By: Tod Ghotra on 01-21-2023 Thin prep Papanicolaou smear with manual screening 18 U/L 15-37 [facility] Thin prep Papanicolaou smear with manual screening 7 5-15 [facility] Urine blood detectionOrdered By: Tod Ghotra on 01-21-2023 RBC Ql (U) 10 /ul Negative [facility] RBC Ql (U) 0 SEEN /hpf 0-5 [facility] Urine clarityOrdered By: Armand Ghotra on 01-21-2023 Clarity (U) Clear Clear [facility] Urine color determinationOrd ered By: Tod Ghotra on 01-21-2023 Color (U) Straw Yellow [facility] Urine glucose detectionOrder ed By: Tod Ghotra on 01-21-2023 Glucose Ql (U) 50 mg/dl Normal [facility] Urine leukocyte esterase det ection by dipstickOrdered By: Tod Ghotra on 01-21-2023 Leukocyte esterase Test strip Ql (U) 25 /ul Negative [facility] Urine pHOrdered By: Tod raman on 01-21-2023 pH (U) 7.0 [pH] 5.0 - 8.0 [facility] Urine sediment bacteria coun t by microscopy (number/high power field)Ordered By: Tod Ghotra on 01-21-2023 Bacteria LM.HPF (Urine sed) [#/Area] 1 /[HPF] None Seen [facility] Urine specific gravity measu rementOrdered By: Tod Ghotra on 01-21-2023 Specific gravity (U) [Rel density] 1.010 1.002-1.030 [facility] Urobilinogen Auto test strip Ql (U)Ordered By: Tod Ghotra on 01-21-2023 Urobilinogen Ql (U) Normal mg/dl Normal [facility] INR in Blood by Coagulation assayOrdered By: Rosalva Ortez on 01-20-2023 INR Coag (Bld) [Relative time] 1.4 {INR} [facility] Laboratory - CoagulationOrde red By: Rosalva Ortez on 01-20-2023 PT Coag (PPP) [Time] 17.1 s 11.7-14.9 [facility] Absolute lymphocyte countOrd ered By: Eladio Almanza on 01-16-2023 Lymphocytes Auto (Unsp spec) [#/Vol] 1.93 10*3/uL 0.83-4.51 [facility] Basophil percentageOrdered B y: Eladio Almanza on 01-16-2023 Basophil percentage 3.1 mg/dL 2.5-4.9 [facility] Basophils/100 WBC (Bld) 1.2 % 0-1 [facility] Bilirubin [Mass/Vol] 0.20 mg/dL 0.20-1.00 [facility] Comment on above: For patients on eltr ombopag therapy, use of Dimension [place] TBIL is not recommended. Chloride [Moles/Vol] 105 mmol/L 98-107 [facility] Eosinophils/100 WBC (Bld) 1.1 % 0-5 [facility] Glucose [Mass/Vol] 120 mg/dL 74-106 [facility] Comment on above: Fasting Glucose resu lt from 100 to 125 mg/dL suggests IMPAIRED HOMEOSTASIS per A.D.A. criteria. Neutrophils (Bld) [#/Vol] 3.8 10*3/uL 2.0-7.7 [facility] Neutrophils/100 WBC (Bld) 58.4 % 47-70 [facility] Potassium [Moles/Vol] 3.4 mmol/L 3.5-5.1 [facility] Protein [Mass/Vol] 6.2 g/dL 6.4-8.2 [facility] Sodium [Moles/Vol] 139 mmol/L 136-145 [facility] WBC (Bld) [#/Vol] 6.5 10*3/uL 4.4-11.0 [facility] Blood erythrocytes count (nu mber/volume)Ordered By: Eladio Almanza on 01-16-2023 RBC (Bld) [#/Vol] 4.42 10*6/uL 4.2-5.4 [facility] Blood hemoglobin measurement (mass/volume)Ordered By: Eladio Almanza on 01-16-2023 Hemoglobin (Bld) [Mass/Vol] 13.7 g/dL 12.0-15.0 [facility] Blood lymphocytes/100 leukoc ytesOrdered By: Eladio Almanza on 01-16-2023 Lymphocytes/100 WBC (Bld) 29.8 % 19-41 [facility] Blood monocytes/100 leukocyt esOrdered By: Eladio Almanza on 01-16-2023 Monocytes/100 WBC (Bld) 9.0 % 0-10 [facility] Blood platelet mean volumeOr dered By: Eladio Almanza on 01-16-2023 Platelet mean volume (Bld) [Entitic vol] 10.1 fL 6.2-12.0 [facility] Determination of erythrocyte mean corpuscular volume (MCV)Ordered By: Eladio Almanza on 01-16-2023 MCV (RBC) [Entitic vol] 93.4 fL 81-99 [facility] Direct bilirubinOrdered By: Eladio Almanza on 01-16-2023 Bilirubin.direct [Mass/Vol] 0.08 mg/dL 0.00-0.30 [facility] Hematocrit Auto (Bld) [Volum e fraction]Ordered By: Eladio Almanza on 01-16-2023 Hematocrit (Bld) [Volume fraction] 41.3 % 37-47 [facility] Laboratory - Chemistry and C hemistry - challengeOrdered By: Eladio Almanza on 01-16-2023 ALP [Catalytic activity/Vol] 88 U/L 45-117 [facility] ALT [Catalytic activity/Vol] 18 U/L 13-56 [facility] CO2 [Moles/Vol] 29.0 mmol/L 21.0-32.0 [facility] Globulin (S) [Mass/Vol] 3.0 g/dL 2.2-4.2 [facility] Magnesium [Mass/Vol] 2.2 mg/dL 1.6-2.6 [facility] Urea nitrogen/Creatinine [Mass ratio] 18.2 mg/mg 10-20 [facility] Laboratory - Hematology and Cell countsOrdered By: Eladio Almanza on 01-16-2023 Erythrocyte distribution width (RBC) [Entitic vol] 44.7 fL 35.1-43.9 [facility] Erythrocyte distribution width (RBC) [Ratio] 13.1 % 11.6-14.6 [facility] Immature granulocytes/100 WBC (Bld) 0.500 % 0.0-0.9 [facility] Comment on above: IG% - Immature Granu locytes (promyelocytes, myelocytes and metamyelocytes) > 1% indicates that a LEFT SHIFT is Present. MCH (RBC) [Entitic mass] 31.0 pg 27.0-32.0 [facility] Nucleated RBC/100 WBC (Bld) [Ratio] 0 % 0-5 [facility] MCHC Auto (RBC) [Mass/Vol]Or dered By: Eladio Almanza on 01-16-2023 MCHC (RBC) [Mass/Vol] 33.2 g/dL 32-36 [facility] No Panel InformationOrdered By: Eladio Almanza on 01-16-2023 Estimated Creatinine Clearance Calc 39.63 ml/min [facility] Estimated GFR (MDRD) Amer 125 mL/min >60 [facility] Comment on above: GFR Calc Estimated GFR (MDRD) Non-Af Amer 103 mL/min >60 [facility] Comment on above: Non- GFR Calc Thyroid Stimulating Hormone (TSH) 0.69 uIU/mL 0.358-3.74 [facility] Platelets bldOrdered By: Manny Almanza on 01-16-2023 Platelets (Bld) [#/Vol] 225 10*3/uL 150-450 [facility] Serum or plasma albumin tres urement (mass/volume)Ordered By: Eladio Almanza on 01-16-2023 Albumin [Mass/Vol] 3.2 g/dL 3.2-5.0 [facility] Serum or plasma albumin/glob ulin mass ratioOrdered By: Eladio Almanza on 01-16-2023 Albumin/Globulin [Mass ratio] 1.1 {ratio} 0.9-2.4 [facility] Serum or plasma calcium tres urement (mass/volume)Ordered By: Eladio Almanza on 01-16-2023 Calcium [Mass/Vol] 8.2 mg/dL 8.5-10.1 [facility] Serum or plasma creatinine m easurement (mass/volume)Ordered By: Eladio Almanza on 01-16-2023 Creatinine [Mass/Vol] 0.60 mg/dL 0.55-1.02 [facility] Comment on above: The validity of the calculated GFR & GFRAA in patients over 70 years has not been determined. Clinical correlation is essential. Serum or plasma urea nitroge n measurement (mass/volume)Ordered By: Eladio Almanza on 01-16-2023 Urea nitrogen [Mass/Vol] 11 mg/dL 7-18 [facility] Thin prep Papanicolaou smear with manual screeningOrdered By: Eladio Almanza on 01-16-2023 Thin prep Papanicolaou smear with manual screening 16 U/L 15-37 [facility] Thin prep Papanicolaou smear with manual screening 5 5-15 [facility] Absolute lymphocyte countOrd ered By: Johnathon Richardson on 01-15-2023 Lymphocytes Auto (Unsp spec) [#/Vol] 1.25 10*3/uL 0.83-4.51 [facility] Basophil percentageOrdered B y: Johnathon Richardson on 01-15-2023 Basophil percentage 0-5 SEEN /hpf 0-5 [facility] Basophils/100 WBC (Bld) 0.9 % 0-1 [facility] Chloride [Moles/Vol] 102 mmol/L 98-107 [facility] Eosinophils/100 WBC (Bld) 1.0 % 0-5 [facility] Glucose [Mass/Vol] 126 mg/dL 74-106 [facility] Comment on above: Fasting Glucose resu lt greater than or equal to 126 mg/dL suggests DIABETES MELLITUS per A.D.A. criteria. Neutrophils (Bld) [#/Vol] 5.9 10*3/uL 2.0-7.7 [facility] Neutrophils/100 WBC (Bld) 75.9 % 47-70 [facility] Potassium [Moles/Vol] 3.5 mmol/L 3.5-5.1 [facility] Sodium [Moles/Vol] 137 mmol/L 136-145 [facility] WBC (Bld) [#/Vol] 7.7 10*3/uL 4.4-11.0 [facility] Bilirubin Test strip Ql (U)O rdered By: Johnathon Richardson on 01-15-2023 Bilirubin Ql (U) Negative Negative [facility] Blood erythrocytes count (nu mber/volume)Ordered By: Johnathon Richardson on 01-15-2023 RBC (Bld) [#/Vol] 4.57 10*6/uL 4.2-5.4 [facility] Blood hemoglobin measurement (mass/volume)Ordered By: Johnathon Richardson on 01-15-2023 Hemoglobin (Bld) [Mass/Vol] 14.6 g/dL 12.0-15.0 [facility] Blood lymphocytes/100 leukoc ytesOrdered By: Johnathon Richardson on 01-15-2023 Lymphocytes/100 WBC (Bld) 16.2 % 19-41 [facility] Blood monocytes/100 leukocyt esOrdered By: Johnathon Richardson on 01-15-2023 Monocytes/100 WBC (Bld) 5.4 % 0-10 [facility] Blood platelet mean volumeOr dered By: Johnathon Richardson on 01-15-2023 Platelet mean volume (Bld) [Entitic vol] 9.5 fL 6.2-12.0 [facility] Determination of erythrocyte mean corpuscular volume (MCV)Ordered By: Johnathon Richardson on 01-15-2023 MCV (RBC) [Entitic vol] 92.3 fL 81-99 [facility] Hematocrit Auto (Bld) [Volum e fraction]Ordered By: Johnathon Richardson on 01-15-2023 Hematocrit (Bld) [Volume fraction] 42.2 % 37-47 [facility] INR in Blood by Coagulation assayOrdered By: Johnathon Richardson on 01-15-2023 INR Coag (Bld) [Relative time] 1.8 {INR} [facility] Ketones Test strip Ql (U)Ord ered By: Johnathon Richardson on 01-15-2023 Ketones Ql (U) Negative Negative [facility] Laboratory - Chemistry and C hemistry - challengeOrdered By: Johnathon Richardson on 01-15-2023 CO2 [Moles/Vol] 32.0 mmol/L 21.0-32.0 [facility] Urea nitrogen/Creatinine [Mass ratio] 16.8 mg/mg 10-20 [facility] Laboratory - CoagulationOrde red By: Johnathon Richardson on 01-15-2023 aPTT Coag (Bld) [Time] 32.0 s 24.1-36.2 [facility] PT Coag (PPP) [Time] 20.7 s 11.7-14.9 [facility] Laboratory - Hematology and Cell countsOrdered By: Johnathon Richardson on 01-15-2023 Erythrocyte distribution width (RBC) [Entitic vol] 43.4 fL 35.1-43.9 [facility] Erythrocyte distribution width (RBC) [Ratio] 12.8 % 11.6-14.6 [facility] Immature granulocytes/100 WBC (Bld) 0.600 % 0.0-0.9 [facility] [facility] Comment on above: IG% - Immature Granu locytes (promyelocytes, myelocytes and metamyelocytes) > 1% indicates that a LEFT SHIFT is Present. MCH (RBC) [Entitic mass] 31.9 pg 27.0-32.0 [facility] Nucleated RBC/100 WBC (Bld) [Ratio] 0 % 0-5 [facility] MCHC Auto (RBC) [Mass/Vol]Or dered By: Johnathon Richardson on 01-15-2023 MCHC (RBC) [Mass/Vol] 34.6 g/dL 32-36 [facility] Mucus LM Ql (Urine sed)Order ed By: Johnathon Richardson on 01-15-2023 Mucus Ql (Urine sed) 0 SEEN /hpf [facility] Nitrite Test strip Ql (U)Ord ered By: Johnathon Richardson on 01-15-2023 Nitrite Ql (U) Negative Negative [facility] No Panel InformationOrdered By: Johnathon Richardson on 01-15-2023 Estimated Creatinine Clearance Calc 39.63 ml/min [facility] Estimated GFR (MDRD) Amer 103 mL/min >60 [facility] Comment on above: GFR Calc Estimated GFR (MDRD) Non-Af Amer 85 mL/min >60 [facility] Comment on above: Non- GFR Calc Platelets bldOrdered By: Davon Richardson on 01-15-2023 Platelets (Bld) [#/Vol] 226 10*3/uL 150-450 [facility] Protein Test strip Ql (U)Ord ered By: Johnathon Richardson on 01-15-2023 Protein Ql (U) 15 mg/dl Negative [facility] Serum or plasma calcium tres urement (mass/volume)Ordered By: Johnathon Richardson on 01-15-2023 Calcium [Mass/Vol] 8.8 mg/dL 8.5-10.1 [facility] Serum or plasma creatinine m easurement (mass/volume)Ordered By: Johnathon Richardson on 01-15-2023 Creatinine [Mass/Vol] 0.72 mg/dL 0.55-1.02 [facility] Comment on above: The validity of the calculated GFR & GFRAA in patients over 70 years has not been determined. Clinical correlation is essential. Serum or plasma urea nitroge n measurement (mass/volume)Ordered By: Johnathon Richardson on 01-15-2023 Urea nitrogen [Mass/Vol] 12 mg/dL 7-18 [facility] Squamous epithelial cells de tection in urine sediment by light microscopyOrdered By: Johnathon Richardson on 01-15-2023 Epithelial cells.squamous LM Ql (Urine sed) 0-5 SEEN /hpf 5-10 [facility] Thin prep Papanicolaou smear with manual screeningOrdered By: Johnathon Richardson on 01-15-2023 Thin prep Papanicolaou smear with manual screening 3 5-15 [facility] Urine blood detectionOrdered By: Johnathon Richardson on 01-15-2023 RBC Ql (U) 10 /ul Negative [facility] RBC Ql (U) 0-5 SEEN /hpf 0-5 [facility] Urine clarityOrdered By: Davon Richardson on 01-15-2023 Clarity (U) Sl. Cloudy Clear [facility] Urine color determinationOrd ered By: Johnathon Richardson on 01-15-2023 Color (U) Yellow Yellow [facility] Urine glucose detectionOrder ed By: Johnathon Richardson on 01-15-2023 Glucose Ql (U) Normal mg/dl Normal [facility] Urine leukocyte esterase det ection by dipstickOrdered By: Johnathon Richardson on 01-15-2023 Leukocyte esterase Test strip Ql (U) Negative Negative [facility] Urine pHOrdered By: Johnathon Richardson on 01-15-2023 pH (U) 8.0 [pH] 5.0 - 8.0 [facility] Urine sediment bacteria coun t by microscopy (number/high power field)Ordered By: Johnathon Richardson on 01-15-2023 Bacteria LM.HPF (Urine sed) [#/Area] 0 /[HPF] None Seen [facility] Urine specific gravity measu rementOrdered By: Johnathon Richardson on 01-15-2023 Specific gravity (U) [Rel density] 1.015 1.002-1.030 [facility] Urobilinogen Auto test strip Ql (U)Ordered By: Johnathon Richardson on 01-15-2023 Urobilinogen Ql (U) Normal mg/dl Normal [facility] .Auto Diffon 12-24-2022 Basophil, Absolute 0.1 10 3/mcL Normal 0.0-0.2 [facility] ([place] Comment on above: Performed By: #### H H, BMP, GFR #### [address] [address] Basophils/100 WBC (Bld) 1.2 % Normal 0.0-2.5 [facility] ([place] Comment on above: Performed By: #### H H, BMP, GFR #### [address] [address] Eosinophil, Absolute 0.1 10 3/mcL Normal 0.0-0.4 [facility] ([place] Comment on above: Performed By: #### H H, BMP, GFR #### [address] [address] Eosinophils/100 WBC (Bld) 0.7 % Normal 0.0-7.0 [facility] ([place] Comment on above: Performed By: #### H H, BMP, GFR #### [address] [address] Lymphocyte, Absolute 1.7 10 3/mcL Normal 0.8-3.9 [facility] ([place] Comment on above: Performed By: #### H H, BMP, GFR #### [address] [address] Lymphocytes/100 WBC (Bld) 25.4 % Normal 10.0-50.0 [facility] [place] Comment on above: Performed By: #### H H, BMP, GFR #### [address] [address] Monocyte, Absolute 0.4 10 3/mcL Normal 0.2-1.0 [facility] [place] Comment on above: Performed By: #### H H, BMP, GFR #### [address] [address] Monocytes/100 WBC (Bld) 6.5 % Normal 1.7-13.0 [facility] ([place] Comment on above: Performed By: #### H H, BMP, GFR #### [address] [address] Neutrophils/100 WBC (Bld) 66.2 % Normal 37.0-80.0 [facility] ([place] Comment on above: Performed By: #### H H, BMP, GFR #### [address] [address] .GFRon 12-24-2022 GFR Non- 77 ml/min/1.73sqm Normal [facility] ([place] Comment on above: Result Comment: GFR Population mean for , Non- Americans Ages 20-29 = 116 mL/min/1.73 sq.m. Ages 30-39 = 107 mL/min/1.73 sq.m. Ages 40-49 = 99 mL/min/1.73 sq.m. Ages 50-59 = 93 mL/min/1.73 sq.m. Ages 60-69 = 85 mL/min/1.73 sq.m. Ages 70+ = 75 mL/min/1.73 sq.m. Chronic Kidney Disease: Less than 60 mL/min/1.73 square meters End Stage Renal Disease: Less than 15 mL/min/1.73 square meters Performed By: #### H H, BMP, GFR #### [address] [address] GFR 93 ml/min/1.73sqm Normal [facility] ([place] Comment on above: Result Comment: GFR Population mean for , Non- Americans Ages 20-29 = 116 mL/min/1.73 sq.m. Ages 30-39 = 107 mL/min/1.73 sq.m. Ages 40-49 = 99 mL/min/1.73 sq.m. Ages 50-59 = 93 mL/min/1.73 sq.m. Ages 60-69 = 85 mL/min/1.73 sq.m. Ages 70+ = 75 mL/min/1.73 sq.m. Chronic Kidney Disease: Less than 60 mL/min/1.73 square meters End Stage Renal Disease: Less than 15 mL/min/1.73 square meters Performed By: #### H H, BMP, GFR #### [address] [address] .NEUABSon 12-24-2022 Neutrophil, Absolute 4.5 10 3/mcL Normal 2.9-6.2 [facility] ([place] Comment on above: Performed By: #### H H, BMP, GFR #### [address] [address] A1Con 12-24-2022 HbA1c (Bld) [Mass fraction] 6.5 % High 4.3-6.4 [facility] ([place] Comment on above: Performed By: #### P RO #### [address] [address] CBCon 12-24-2022 Erythrocyte distribution width (RBC) [Ratio] 14.6 % High 11.5-14.5 [facility] [place] Comment on above: Performed By: #### ROSALBA Guerrero, GFR #### [address] [address] Hematocrit (Bld) [Volume fraction] 41.6 % Normal 37.0-47.0 [facility] [place] Comment on above: Performed By: #### Pia Palacio BMP, GFR #### [address] [address] Hgb 14.2 G/dL Normal 12.0-16.0 [facility] [place] Comment on above: Performed By: #### ROSALBA Guerrero, GFR #### [address] [address] MCH (RBC) [Entitic mass] 31.7 pg High 27.0-31.2 [facility] [place] Comment on above: Performed By: #### Pia Palacio BMP, GFR #### [address] [address] MCHC 34.2 G/dL Normal 33.0-37.0 [facility] [place] Comment on above: Performed By: #### ROSALBA Guerrero, GFR #### [address] [address] MCV (RBC) [Entitic vol] 92.5 fL Normal 80.0-94.0 [facility] ([place] Comment on above: Performed By: #### H Pia BMP, GFR #### [address] [address] Platelet 231 10 3/mcL Normal 130-400 [facility] [place] Comment on above: Performed By: #### H H BMP, GFR #### [address] [address] Platelet mean volume (Bld) [Entitic vol] 8.1 fL Normal 7.4-10.4 [facility] [place] Comment on above: Performed By: #### H Pia BMP, GFR #### [address] [address] RBC 4.50 10 6/mcL Normal 4.20-5.40 [facility] [place] Comment on above: Performed By: #### H H, BMP, GFR #### [address] [address] WBC 6.8 10 3/mcL Normal 4.6-10.8 [facility] [place] Comment on above: Performed By: #### H H, BMP, GFR #### [address] [address] CMPon 12-24-2022 Albumin Level 3.5 G/dL Normal 3.4-4.8 [facility] [place] Comment on above: Performed By: #### H H, BMP, GFR #### [address] [address] Albumin/Globulin [Mass ratio] 1.1 {ratio} Normal 1.1-2.5 [facility] [place] Comment on above: Performed By: #### H H, BMP, GFR #### [address] [address] ALP [Catalytic activity/Vol] 112 U/L Normal 40-135 [facility] [place] Comment on above: Performed By: #### H H, BMP, GFR #### [address] [address] ALT [Catalytic activity/Vol] 24 U/L Normal 14-59 [facility] [place] Comment on above: Performed By: #### H H, BMP, GFR #### [address] [address] AST [Catalytic activity/Vol] 21 U/L Normal 10-40 [facility] [place] Comment on above: Performed By: #### H H, BMP, GFR #### [address] [address] Bili Total 0.3 mg/dL Normal 0.2-1.0 [facility] ([place] Comment on above: Result Comment: Use of this assay is not recommended for patients undergoing treatment with eltrombopag due to the potential for falsely elevated results. Performed By: #### H H BMP, GFR #### [address] [address] BUN/Creatinine Ratio 15 ratio Normal 7-27 [facility] ([place] Comment on above: Performed By: #### H H, BMP, GFR #### [address] [address] Calcium [Mass/Vol] 8.8 mg/dL Normal 8.4-10.2 On license of [facility] ([place]) Comment on above: Performed By: #### H Pia BMP, GFR #### [place] [id number] Chloride [Moles/Vol] 97 mmol/L Low 98-107 [facility] [place] Comment on above: Performed By: #### H H BMP, GFR #### [place] [id number] CO2 [Moles/Vol] 31 mmol/L Normal 23-31 [facility] [place] Comment on above: Performed By: #### H Pia BMP, GFR #### [address] [address] Creatinine [Mass/Vol] 0.74 mg/dL Normal 0.55-1.02 [facility] ([place] Comment on above: Performed By: #### H H BMP, GFR #### [address] [address] Electrolyte Balance 7.0 mEq/L Normal 4.0-15.0 [facility] ([place] Comment on above: Performed By: #### H H BMP, GFR #### [address] [address] Globulin 3.3 G/dL Normal [facility] [place] Comment on above: Performed By: #### H H, BMP, GFR #### [address] [address] Glucose [Mass/Vol] 116 mg/dL High 83-110 On license of [facility] ([place] Comment on above: Performed By: #### H H, BMP, GFR #### [address] [address] Potassium [Moles/Vol] 4.9 mmol/L Normal 3.5-5.1 [facility] ([place] Comment on above: Performed By: #### H H, BMP, GFR #### [address] [address] Sodium [Moles/Vol] 135 mmol/L Low 136-145 On license of [facility] ([place] Comment on above: Performed By: #### H H, BMP, GFR #### [address] [address] Total Protein 6.8 G/dL Normal 6.4-8.2 [facility] [place] Comment on above: Performed By: #### H H, BMP, GFR #### [address] [address] Urea nitrogen [Mass/Vol] 11 mg/dL Normal 7-18 [facility] [place] Comment on above: Performed By: #### H H, BMP, GFR #### [address] [address] LABORATORYOrdered By: SYSTEM SYSTEM on 12-24-2022 Albumin BCP dye [Mass/Vol] 3.5 G/dL Normal 3.4 - 4.8 G/dL AO ADM SS Albumin/Globulin [Mass ratio] 1.1 {ratio} Normal 1.1 - 2.5 ratio AO ADM SS ALP [Catalytic activity/Vol] 112 U/L Normal 40 - 135 U/L AO ADM SS ALT With P-5'-P [Catalytic activity/Vol] 24 U/L Normal 14 - 59 U/L AO ADM SS AST With P-5'-P [Catalytic activity/Vol] 21 U/L Normal 10 - 40 U/L AO ADM SS Basophil, Absolute 0.1 103/mcL Normal 0.0 - 0.2 10^3/mcL AO Workflow SS Basophils/100 WBC (Bld) 1.2 % Normal 0.0 - 2.5 % AO Workflow SS Bilirubin [Mass/Vol] 0.3 mg/dL Normal 0.2 - 1 .0 mg/dL AO ADM SS Comment on above: Interpretive Data: U se of this assay is not recommended for patients undergoing treatment with eltrombopag due to the potential for falsely elevated results. Calcium [Mass/Vol] 8.8 mg/dL Normal 8.4 - 10. 2 mg/dL AO ADM SS Chloride [Moles/Vol] 97 mmol/L Low 98 - 10 7 mmol/L AO ADM SS CO2 [Moles/Vol] 31 mmol/L Normal 23 - 31 mmol/L AO ADM SS Creatinine [Mass/Vol] 0.74 mg/dL Normal 0.55 - 1.02 mg/dL AO ADM SS Electrolyte Balance 7.0 mEq/L Normal 4.0 - 15 .0 mEq/L AO ADM SS Eosinophil, Absolute 0.1 103/mcL Normal 0.0 - 0 .4 10^3/mcL AO Workflow SS Eosinophils/100 WBC (Bld) 0.7 % Normal 0.0 - 7.0 % AO Workflow SS Erythrocyte distribution width (RBC) [Ratio] 14.6 % High 11.5 - 14.5 % AO Workflow SS GFR/1.73 sq M.predicted among blacks MDRD (S/P/Bld) [Vol rate/Area] 93 ml/min/1.73sqm Invalid Interpretation Code AO Chemistry S Comment on above: Interpretive Data: GFR Population mean for , Non- Americans Ages 20-29 = 116 mL/min/1.73 sq.m. Ages 30-39 = 107 mL/min/1.73 sq.m. Ages 40-49 = 99 mL/min/1.73 sq.m. Ages 50-59 = 93 mL/min/1.73 sq.m. Ages 60-69 = 85 mL/min/1.73 sq.m. Ages 70+ = 75 mL/min/1.73 sq.m. Chronic Kidney Disease: Less than 60 mL/min/1.73 square meters End Stage Renal Disease: Less than 15 mL/min/1.73 square meters GFR/1.73 sq M.predicted among non-blacks MDRD (S/P/Bld) [Vol rate/Area] 77 ml/min/1.73sqm Invalid Interpretation Code AO Chemistry S Comment on above: Interpretive Data: GFR Population mean for , Non- Americans Ages 20-29 = 116 mL/min/1.73 sq.m. Ages 30-39 = 107 mL/min/1.73 sq.m. Ages 40-49 = 99 mL/min/1.73 sq.m. Ages 50-59 = 93 mL/min/1.73 sq.m. Ages 60-69 = 85 mL/min/1.73 sq.m. Ages 70+ = 75 mL/min/1.73 sq.m. Chronic Kidney Disease: Less than 60 mL/min/1.73 square meters End Stage Renal Disease: Less than 15 mL/min/1.73 square meters Globulin 3.3 G/dL Invalid Interpretation Code AO ADM SS Glucose [Mass/Vol] 116 mg/dL High 83 - 110 mg/dL AO ADM SS HbA1c (Bld) [Mass fraction] 6.5 % High 4.3 - 6.4 % AO ADM SS Hematocrit (Bld) [Volume fraction] 41.6 % Normal 37.0 - 47.0 % AO Workflow SS Hemoglobin (Bld) [Mass/Vol] 14.2 G/dL Normal 12.0 - 16.0 G/dL AO Workflow SS Lymphocyte, Absolute 1.7 103/mcL Normal 0.8 - 3 .9 10^3/mcL AO Workflow SS Lymphocytes/100 WBC (Bld) 25.4 % Normal 10.0 - 50.0 % AO Workflow SS MCH (RBC) [Entitic mass] 31.7 pg High 27.0 - 31.2 pg AO Workflow SS MCHC 34.2 G/dL Normal 33.0 - 37.0 G/dL AO Workflow SS MCV (RBC) [Entitic vol] 92.5 fL Normal 80.0 - 94.0 fL AO Workflow SS Monocyte, Absolute 0.4 103/mcL Normal 0.2 - 1.0 10^3/mcL AO Workflow SS Monocytes/100 WBC (Bld) 6.5 % Normal 1.7 - 13.0 % AO Workflow SS Neutrophil, Absolute 4.5 103/mcL Normal 2.9 - 6 .2 10^3/mcL AO Workflow SS Neutrophils/100 WBC (Bld) 66.2 % Normal 37.0 - 80.0 % AO Workflow SS Platelet mean volume (Bld) [Entitic vol] 8.1 fL Normal 7.4 - 10.4 fL AO Workflow SS Platelets (Bld) [#/Vol] 231 103/mcL Normal 130 - 400 10^3/mcL AO Workflow SS Potassium [Moles/Vol] 4.9 mmol/L Normal 3.5 - 5.1 mmol/L AO ADM SS Protein [Mass/Vol] 6.8 G/dL Normal 6.4 - 8.2 G/dL AO ADM SS RBC (Bld) [#/Vol] 4.50 106/mcL Normal 4.20 - 5.4 0 10^6/mcL AO Workflow SS Sodium [Moles/Vol] 135 mmol/L Low 136 - 145 mmol/L AO ADM SS Urea nitrogen [Mass/Vol] 11 mg/dL Normal 7 - 18 mg/dL AO ADM SS Urea nitrogen/Creatinine [Mass ratio] 15 ratio Normal 7 - 27 ratio AO ADM SS WBC (Bld) [#/Vol] 6.8 103/mcL Normal 4.6 - 10.8 10^3/mcL AO Workflow SS .Auto Diffon 09-23-2022 Basophil, Absolute 0.1 10 3/mcL Normal 0.0-0.2 [facility] ([place] Comment on above: Performed By: #### H H, BMP, GFR #### [address] [address] Basophils/100 WBC (Bld) 1.2 % Normal 0.0-2.5 [facility] ([place] Comment on above: Performed By: #### H H, BMP, GFR #### [address] [address] Eosinophil, Absolute 0.1 10 3/mcL Normal 0.0-0.4 [facility] ([place] Comment on above: Performed By: #### H H, BMP, GFR #### [address] [address] Eosinophils/100 WBC (Bld) 1.5 % Normal 0.0-7.0 [facility] ([place] Comment on above: Performed By: #### H H, BMP, GFR #### [address] [address] Lymphocyte, Absolute 1.7 10 3/mcL Normal 0.8-3.9 [facility] ([place] Comment on above: Performed By: #### H H, BMP, GFR #### [address] [address] Lymphocytes/100 WBC (Bld) 28.5 % Normal 10.0-50.0 [facility] ([place] Comment on above: Performed By: #### H H, BMP, GFR #### [address] [address] Monocyte, Absolute 0.4 10 3/mcL Normal 0.2-1.0 [facility] ([place] Comment on above: Performed By: #### H H, BMP, GFR #### [address] [address] Monocytes/100 WBC (Bld) 7.1 % Normal 1.7-13.0 [facility] ([place]) Comment on above: Performed By: #### H H, BMP, GFR #### [address] [address] Neutrophils/100 WBC (Bld) 61.7 % Normal 37.0-80.0 [facility] ([place] Comment on above: Performed By: #### H H, BMP, GFR #### [address] [address] .GFRon 09-23-2022 GFR Non- 94 ml/min/1.73sqm Normal [facility] ([place] Comment on above: Result Comment: GFR Population mean for , Non- Americans Ages 20-29 = 116 mL/min/1.73 sq.m. Ages 30-39 = 107 mL/min/1.73 sq.m. Ages 40-49 = 99 mL/min/1.73 sq.m. Ages 50-59 = 93 mL/min/1.73 sq.m. Ages 60-69 = 85 mL/min/1.73 sq.m. Ages 70+ = 75 mL/min/1.73 sq.m. Chronic Kidney Disease: Less than 60 mL/min/1.73 square meters End Stage Renal Disease: Less than 15 mL/min/1.73 square meters Performed By: #### H H, BMP, GFR #### [address] [address] GFR 114 ml/min/1.73sqm Normal [facility] ([place] Comment on above: Result Comment: GFR Population mean for , Non- Americans Ages 20-29 = 116 mL/min/1.73 sq.m. Ages 30-39 = 107 mL/min/1.73 sq.m. Ages 40-49 = 99 mL/min/1.73 sq.m. Ages 50-59 = 93 mL/min/1.73 sq.m. Ages 60-69 = 85 mL/min/1.73 sq.m. Ages 70+ = 75 mL/min/1.73 sq.m. Chronic Kidney Disease: Less than 60 mL/min/1.73 square meters End Stage Renal Disease: Less than 15 mL/min/1.73 square meters Performed By: #### H H, BMP, GFR #### [address] [address] .NEUABSon 09-23-2022 Neutrophil, Absolute 3.8 10 3/mcL Normal 2.9-6.2 [facility] ([place] Comment on above: Performed By: #### H H, BMP, GFR #### [address] [address] CBCon 09-23-2022 Erythrocyte distribution width (RBC) [Ratio] 13.4 % Normal 11.5-14.5 [facility] [place] Comment on above: Performed By: #### H H, BMP, GFR #### [address] [address] Hematocrit (Bld) [Volume fraction] 42.7 % Normal 37.0-47.0 [facility] [place] Comment on above: Performed By: #### H H, BMP, GFR #### [address] [address] Hgb 14.3 G/dL Normal 12.0-16.0 [facility] [place] Comment on above: Performed By: #### H H, BMP, GFR #### [address] [address] MCH (RBC) [Entitic mass] 30.3 pg Normal 27.0-31.2 [facility] [place] Comment on above: Performed By: #### H H, BMP, GFR #### [address] [address] MCHC 33.5 G/dL Normal 33.0-37.0 [facility] [place] Comment on above: Performed By: #### H H, BMP, GFR #### [address] [address] MCV (RBC) [Entitic vol] 90.4 fL Normal 80.0-94.0 [facility] [place] Comment on above: Performed By: #### H H, BMP, GFR #### [address] [address] Platelet 250 10 3/mcL Normal 130-400 [facility] [place] Comment on above: Performed By: #### H H, BMP, GFR #### [address] [address] Platelet mean volume (Bld) [Entitic vol] 7.8 fL Normal 7.4-10.4 [facility] [place] Comment on above: Performed By: #### H H, BMP, GFR #### [address] [address] RBC 4.72 10 6/mcL Normal 4.20-5.40 [facility] [place] Comment on above: Performed By: #### H H, BMP, GFR #### [address] [address] WBC 6.1 10 3/mcL Normal 4.6-10.8 [facility] [place] Comment on above: Performed By: #### H H, BMP, GFR #### [address] [address] CMPon 09-23-2022 Albumin Level 3.7 G/dL Normal 3.4-4.8 [facility] [place] Comment on above: Performed By: #### H H, BMP, GFR #### [address] [address] Albumin/Globulin [Mass ratio] 1.2 {ratio} Normal 1.1-2.5 [facility] [place] Comment on above: Performed By: #### H H, BMP, GFR #### [address] [address] ALP [Catalytic activity/Vol] 127 U/L Normal 40-135 [facility] [place] Comment on above: Performed By: #### H H, BMP, GFR #### [address] [address] ALT [Catalytic activity/Vol] 24 U/L Normal 14-59 [facility] [place] Comment on above: Performed By: #### H H, BMP, GFR #### [address] [address] AST [Catalytic activity/Vol] 21 U/L Normal 10-40 [facility] [place] Comment on above: Performed By: #### H H, BMP, GFR #### [address] [address] Bili Total 0.2 mg/dL Normal 0.2-1.0 [facility] [place] Comment on above: Result Comment: Use of this assay is not recommended for patients undergoing treatment with eltrombopag due to the potential for falsely elevated results. Performed By: #### H H, BMP, GFR #### [address] [address] BUN/Creatinine Ratio 18 ratio Normal 7-27 [facility] ([place] Comment on above: Performed By: #### H H, BMP, GFR #### [address] [address] Calcium [Mass/Vol] 8.8 mg/dL Normal 8.4-10.2 On [facility] of [facility] ([place] Comment on above: Performed By: #### H H, BMP, GFR #### [address] [address] Chloride [Moles/Vol] 98 mmol/L Normal 98-107 [facility] ([place] Comment on above: Performed By: #### H H, BMP, GFR #### [address] [address] CO2 [Moles/Vol] 32 mmol/L High 23-31 [facility] [place] Comment on above: Performed By: #### H H, BMP, GFR #### [address] [address] Creatinine [Mass/Vol] 0.62 mg/dL Normal 0.55-1.02 [facility] ([place] Comment on above: Performed By: #### H H, BMP, GFR #### [address] [address] Electrolyte Balance 7.0 mEq/L Normal 4.0-15.0 [facility] ([place] Comment on above: Performed By: #### H H, BMP, GFR #### [address] [address] Globulin 3.2 G/dL Normal [facility] [place] Comment on above: Performed By: #### H H, BMP, GFR #### [address] [address] Glucose [Mass/Vol] 93 mg/dL Normal 83-110 On [facility] of [facility] ([place] Comment on above: Performed By: #### H H, BMP, GFR #### [address] [address] Potassium [Moles/Vol] 4.7 mmol/L Normal 3.5-5.1 [facility] ([place] Comment on above: Performed By: #### H H, BMP, GFR #### [address] [address] Sodium [Moles/Vol] 137 mmol/L Normal 136-145 On [facility] of [facility] ([place] Comment on above: Performed By: #### H H, BMP, GFR #### [address] [address] Total Protein 6.9 G/dL Normal 6.4-8.2 [facility] [place] Comment on above: Performed By: #### H H, BMP, GFR #### Ashwini Ashby [address] [place], [place] [address] Urea nitrogen [Mass/Vol] 11 mg/dL Normal 7-18 [facility] [place] Comment on above: Performed By: #### H H, BMP, GFR #### Ashwini Ashby [address] [place], [place] [address] XR CHEST 2 VIEWSon 3 XR CHEST 2 VIEWS ORIGINAL EXAMINATION: TWO XRAY VIEWS OF THE CHEST08/30/2022 1:23 pm COMPARISON: Chest radiograph 08/02/2022, 07/15/2022. HISTORY: ORDERING SYSTEM PROVIDED HISTORY: Reason for Exam: pleural effusion, recent open-heart surgery. FINDINGS: Heart and mediastinum: Cardiomediastinal silhouette is stable. Prior CABG. Sternotomy wires unchanged in alignment. Aortic valve prosthesis and abandoned epicardial leads noted. Thoracic aortic calcified atherosclerosis noted. Lungs and pleura: No focal consolidation or pulmonary edema. No visible pneumothorax. Resolution of prior small right-sided pleural effusion. Bones: Degenerative spine. IMPRESSION: No acute cardiopulmonary findings. Interval resolution of prior small right-sided pleural effusion. I have personally reviewed the images of this examination and agree with the resident's findings and interpretation. Interpreted by: Jazmyne Merino Preliminary Report By: Brian Woo Electronically signed By Jazmyne Merino Dictated Date: 08/31/2022 8:12:15 AM Prelim Date: 08/31/2022 9:00:53 AM Sign Date: 08/31/2022 9:00:53 AM Ordering Provider: MAKI Navas [facility] ([place]) XR CHEST 2 VIEWSon 3 XR CHEST 2 VIEWS ORIGINAL EXAMINATION: TWO XRAY VIEWS OF THE CHEST 08/02/2022 2:48 pm COMPARISON: July 15, 2022 HISTORY: ORDERING SYSTEM PROVIDED HISTORY: Reason for Exam: Abnormal breath sounds FINDINGS: The heart is normal in size and there is no vascular congestion present. Prosthetic aortic valve noted. A very small right pleural effusion is evident, decreased since prior exam. No significant left-sided fluid seen. No focal infiltrates are evident. There are minor degenerative changes in the spine and at the shoulders. IMPRESSION: Small amount of residual right pleural fluid. Interpreted by: Saul Ramos MD Preliminary Report By: Saul Ramos MD Electronically signed By Saul Ramos MD Dictated Date: 08/03/2022 9:09:00 AM Prelim Date: 08/03/2022 9:09:42 AM Sign Date: 08/03/2022 9:09:42 AM Ordering Provider: MAURY CASTELLNAOS [facility]ly [facility] ([place]) .GFRon 08-02-2022 GFR Non- >60 [facility] ([place]) Comment on above: Result Comment: GFR Population mean for , Non- Americans Ages 20-29 = 116 mL/min/1.73 sq.m. Ages 30-39 = 107 mL/min/1.73 sq.m. Ages 40-49 = 99 mL/min/1.73 sq.m. Ages 50-59 = 93 mL/min/1.73 sq.m. Ages 60-69 = 85 mL/min/1.73 sq.m. Ages 70+ = 75 mL/min/1.73 sq.m. Chronic Kidney Disease: Less than 60 mL/min/1.73 square meters End Stage Renal Disease: Less than 15 mL/min/1.73 square meters Performed By: #### P RO #### [address] [address] GFR >60 Normal [facility] ([place]) Comment on above: Result Comment: GFR Population mean for , Non- Americans Ages 20-29 = 116 mL/min/1.73 sq.m. Ages 30-39 = 107 mL/min/1.73 sq.m. Ages 40-49 = 99 mL/min/1.73 sq.m. Ages 50-59 = 93 mL/min/1.73 sq.m. Ages 60-69 = 85 mL/min/1.73 sq.m. Ages 70+ = 75 mL/min/1.73 sq.m. Chronic Kidney Disease: Less than 60 mL/min/1.73 square meters End Stage Renal Disease: Less than 15 mL/min/1.73 square meters Performed By: #### P RO #### [address] [address] BMPon 08-02-2022 BUN/Creatinine Ratio 17.6 ratio Normal 10.0-22.0 [facility] ([place] Comment on above: Performed By: #### P RO #### [address] [address] Calcium [Mass/Vol] 8.9 mg/dL Normal 8.7-10.4 On license of [facility] ([place]) Comment on above: Performed By: #### P RO #### [address] [address] Chloride [Moles/Vol] 101 mmol/L Normal 98-110 [facility] [place] Comment on above: Performed By: #### P RO #### [address] [address] CO2 [Moles/Vol] 31 mmol/L Normal 22-32 [facility] ([place] Comment on above: Performed By: #### P RO #### [address] [address] Creatinine [Mass/Vol] 0.51 mg/dL Normal 0.50-1.20 [facility]ly [facility], [facility] ([place]) Comment on above: Performed By: #### P RO #### [address] [address] Electrolyte Balance 3.0 mEq/L Low 4.0-15.0 [facility] ([place]) Comment on above: Performed By: #### P RO #### [address] [address] Glucose [Mass/Vol] 117 mg/dL High 82-115 On license of [facility] ([place]) Comment on above: Performed By: #### P RO #### [address] [address] Potassium [Moles/Vol] 4.2 mmol/L Normal 3.5-5.0 [facility] ([place] Comment on above: Result Comment: Spec imen slightly hemolyzed. Performed By: #### P RO #### [address] [address] Sodium [Moles/Vol] 135 mmol/L Low 136-145 On license of [facility] ([place]) Comment on above: Performed By: #### P RO #### [facility] [address] [place], [place] [address] Urea nitrogen [Mass/Vol] 9.0 mg/dL Normal 8.0-22.0 [facility] ([place] Comment on above: Performed By: #### P RO #### [facility] [address] [place], [place] [address] LABORATORYOrdered By: [employer] on 08-02-2022 Calcium [Mass/Vol] 8.9 mg/dL Invalid Interpretation Code 8.7 - 10.4 mg/dL ADM SS Chloride [Moles/Vol] 101 mmol/L Invalid Interpretation Code 98 - 110 mEq/L ADM SS CO2 [Moles/Vol] 31 mmol/L Invalid Interpretation Code 22 - 32 mEq/L ADM SS Creatinine [Mass/Vol] 0.51 mg/dL Invalid Interpretation Code 0.50 - 1.20 mg/dL ADM SS Electrolyte Balance 3.0 mEq/L Invalid Interpretation Code 4.0 - 15.0 mEq/L AH ADM SS GFR/1.73 sq M.predicted among blacks MDRD (S/P/Bld) [Vol rate/Area] ml/min/1.73sqm Invalid Interpretation Code AH Chemistry S GFR/1.73 sq M.predicted among non-blacks MDRD (S/P/Bld) [Vol rate/Area] ml/min/1.73sqm Invalid Interpretation Code Chemistry S Glucose [Mass/Vol] 117 mg/dL Invalid Interpretation Code 82 - 115 mg/dL ADM SS Potassium [Moles/Vol] 4.2 mmol/L Invalid Interpretation Code 3.5 - 5.0 mEq/L AH ADM SS Comment on above: Result Comment: Spec imen slightly hemolyzed. Sodium [Moles/Vol] 135 mmol/L Invalid Interpretation Code 136 - 145 mEq/L ADM SS Urea nitrogen [Mass/Vol] 9.0 mg/dL Invalid Interpretation Code 8.0 - 22.0 mg/dL ADM SS Urea nitrogen/Creatinine [Mass ratio] 17.6 ratio Invalid Interpretation Code 10.0 - 22.0 ratio AH ADM SS LABORATORYOrdered By: eCareers[employer] anat José Miguel on 07-29-2022 INR Coag (PPP) [Relative time] 1.5 {INR} Invalid Interpretation Code AO HemoHub SS PT Coag (PPP) [Time] 17.7 s Invalid Interpretation Code 9.1 - 14.2 seconds AO HemoHub SS PROon 07-29-2022 PT Coag (PPP) [Time] 17.7 s High 9.1-14.2 [facility] ([place] Comment on above: Performed By: #### H H, BMP, GFR #### [place] [id number] PT International Ratio 1.5 Normal [facility] ([place]) Comment on above: Result Comment: The [employer] (CHEST, 1992, 102:312S-25S) recommended therapeutic range for oral anticoagulant therapy is: LOW RISK: Prophylaxis of venous thrombosis INR: 2.0-3.0 Treatment of pulmonary embolism 2.0-3.0 Prevention of systemic embolism 2.0-3.0 HIGH RISK: Mechanical prosthetic valves 2.5-3.5 Performed By: #### H H, BMP, GFR #### [address] [address] LABORATORYOrdered By: Lillisaud anat Coleus on 07-23-2022 INR Coag (PPP) [Relative time] 2.3 {INR} Invalid Interpretation Code AO HemoHub SS PT Coag (PPP) [Time] 27.2 s Invalid Interpretation Code 9.1 - 14.2 seconds AO HemoHub SS PROon 07-23-2022 PT Coag (PPP) [Time] 27.2 s High 9.1-14.2 [facility] [place] Comment on above: Performed By: #### P RO #### [address] [address] PT International Ratio 2.3 Normal [facility] ([place] Comment on above: Result Comment: [employer] [employer] (CHEST, 1992, 102:312S-25S) recommended therapeutic range for oral anticoagulant therapy is: LOW RISK: Prophylaxis of venous thrombosis INR: 2.0-3.0 Treatment of pulmonary embolism 2.0-3.0 Prevention of systemic embolism 2.0-3.0 HIGH RISK: Mechanical prosthetic valves 2.5-3.5 Performed By: #### P RO #### [address] [address] .GFRon 07-22-2022 GFR 96 ml/min/1.73sqm Normal [facility] ([place] Comment on above: Result Comment: GFR Population mean for , Non- Americans Ages 20-29 = 116 mL/min/1.73 sq.m. Ages 30-39 = 107 mL/min/1.73 sq.m. Ages 40-49 = 99 mL/min/1.73 sq.m. Ages 50-59 = 93 mL/min/1.73 sq.m. Ages 60-69 = 85 mL/min/1.73 sq.m. Ages 70+ = 75 mL/min/1.73 sq.m. Chronic Kidney Disease: Less than 60 mL/min/1.73 square meters End Stage Renal Disease: Less than 15 mL/min/1.73 square meters Performed By: #### H H, BMP, GFR #### [address] [address] GFR Non- 79 ml/min/1.73sqm Normal [facility] [place] Comment on above: Result Comment: GFR Population mean for , Non- Americans Ages 20-29 = 116 mL/min/1.73 sq.m. Ages 30-39 = 107 mL/min/1.73 sq.m. Ages 40-49 = 99 mL/min/1.73 sq.m. Ages 50-59 = 93 mL/min/1.73 sq.m. Ages 60-69 = 85 mL/min/1.73 sq.m. Ages 70+ = 75 mL/min/1.73 sq.m. Chronic Kidney Disease: Less than 60 mL/min/1.73 square meters End Stage Renal Disease: Less than 15 mL/min/1.73 square meters Performed By: #### H H, BMP, GFR #### [address] [address] BMPon 07-22-2022 BUN/Creatinine Ratio 12 ratio Normal 7-27 [facility] [place] Comment on above: Performed By: #### H H, BMP, GFR #### [address] [address] Calcium [Mass/Vol] 8.5 mg/dL Normal 8.4-10.2 On license of [facility] ([place]) Comment on above: Performed By: #### H H, BMP, GFR #### [address] [address] Chloride [Moles/Vol] 99 mmol/L Normal 98-107 [facility] [place] Comment on above: Performed By: #### H H, BMP, GFR #### [address] [address] CO2 [Moles/Vol] 29 mmol/L Normal 23-31 [facility] [place] Comment on above: Performed By: #### H H, BMP, GFR #### [address] [address] Creatinine [Mass/Vol] 0.72 mg/dL Normal 0.55-1.02 [facility] [place] Comment on above: Performed By: #### H H, BMP, GFR #### [address] [address] Electrolyte Balance 9.0 mEq/L Normal 4.0-15.0 [facility] [place] Comment on above: Performed By: #### H H, BMP, GFR #### [address] [address] Glucose [Mass/Vol] 165 mg/dL High 83-110 On license of [facility] ([place] Comment on above: Performed By: #### H H, BMP, GFR #### [address] [address] Potassium [Moles/Vol] 4.6 mmol/L Normal 3.5-5.1 [facility] ([place] Comment on above: Performed By: #### H H, BMP, GFR #### [address] [address] Sodium [Moles/Vol] 137 mmol/L Normal 136-145 On license of [facility] ([place] Comment on above: Performed By: #### H H, BMP, GFR #### [address] [address] Urea nitrogen [Mass/Vol] 9 mg/dL Normal 7-18 [facility] [place] Comment on above: Performed By: #### H H, BMP, GFR #### [address] [address] HHon 07-22-2022 Hematocrit (Bld) [Volume fraction] 29.2 % Low 37.0-47.0 [facility] [place] Comment on above: Performed By: #### H H, BMP, GFR #### [address] [address] Hgb 9.9 G/dL Low 12.0-16.0 [facility] [place] Comment on above: Performed By: #### H H, BMP, GFR #### [address] [address] LABORATORYOrdered By: SYSTEM SYSTEM on 07-22-2022 Calcium [Mass/Vol] 8.5 mg/dL Invalid Interpretation Code 8.4 - 10.2 mg/dL AO ADM SS Chloride [Moles/Vol] 99 mmol/L Invalid Interpretation Code 98 - 107 mmol/L AO ADM SS CO2 [Moles/Vol] 29 mmol/L Invalid Interpretation Code 23 - 31 mmol/L AO ADM SS Creatinine [Mass/Vol] 0.72 mg/dL Invalid Interpretation Code 0.55 - 1.02 mg/dL AO ADM SS Electrolyte Balance 9.0 mEq/L Invalid Interpretation Code 4.0 - 15.0 mEq/L AO ADM SS GFR/1.73 sq M.predicted among blacks MDRD (S/P/Bld) [Vol rate/Area] 96 ml/min/1.73sqm Invalid Interpretation Code AO Chemistry S GFR/1.73 sq M.predicted among non-blacks MDRD (S/P/Bld) [Vol rate/Area] 79 ml/min/1.73sqm Invalid Interpretation Code AO Chemistry S Glucose [Mass/Vol] 165 mg/dL Invalid Interpretation Code 83 - 110 mg/dL AO ADM SS Potassium [Moles/Vol] 4.6 mmol/L Invalid Interpretation Code 3.5 - 5.1 mmol/L AO ADM SS Sodium [Moles/Vol] 137 mmol/L Invalid Interpretation Code 136 - 145 mmol/L AO ADM SS Urea nitrogen [Mass/Vol] 9 mg/dL Invalid Interpretation Code 7 - 18 mg/dL AO ADM SS Urea nitrogen/Creatinine [Mass ratio] 12 ratio Invalid Interpretation Code 7 - 27 ratio AO ADM SS LABORATORYOrdered By: Lilia Castaneda on 07-22-2022 Hematocrit (Bld) [Volume fraction] 29.2 % Invalid Interpretation Code 37.0 - 47.0 % AO Workflow SS Hemoglobin (Bld) [Mass/Vol] 9.9 G/dL Invalid Interpretation Code 12.0 - 16.0 G/dL AO Workflow SS LABORATORYOrdered By: Molina Messina on 07-20-2022 INR Coag (PPP) [Relative time] 2.3 {INR} Invalid Interpretation Code AO HemoHub SS PT Coag (PPP) [Time] 26.2 s Invalid Interpretation Code 9.1 - 14.2 seconds AO Hemo[facility] SS LABORATORYOrdered By: Lilia Castaneda on 07-19-2022 INR Coag (PPP) [Relative time] 2.2 {INR} Invalid Interpretation Code AO HemoHub SS PT Coag (PPP) [Time] 25.6 s Invalid Interpretation Code 9.1 - 14.2 seconds AO HemoHub SS LABORATORYOrdered By: Rachel Mcknight on 07-17-2022 Basophil, Absolute 0.2 103/mcL Invalid Interpretation Code 0.0 - 0.2 10^3/mcL AO Workflow SS Basophils/100 WBC (Bld) 2.7 % Invalid Interpretation Code 0.0 - 2.5 % AO Workflow SS Eosinophil, Absolute 0.4 103/mcL Invalid Interpretation Code 0.0 - 0.4 10^3/mcL AO Workflow SS Eosinophils/100 WBC (Bld) 5.2 % Invalid Interpretation Code 0.0 - 7.0 % AO Workflow SS Erythrocyte distribution width (RBC) [Ratio] 13.8 % Invalid Interpretation Code 11.5 - 14.5 % AO Workflow SS Hematocrit (Bld) [Volume fraction] 24.9 % Invalid Interpretation Code 37.0 - 47.0 % AO Workflow SS Hemoglobin (Bld) [Mass/Vol] 8.6 G/dL Invalid Interpretation Code 12.0 - 16.0 G/dL AO Workflow SS Lymphocyte, Absolute 1.6 103/mcL Invalid Interpretation Code 0.8 - 3.9 10^3/mcL AO Workflow SS Lymphocytes/100 WBC (Bld) 20.2 % Invalid Interpretation Code 10.0 - 50.0 % AO Workflow SS MCH (RBC) [Entitic mass] 31.7 pg Invalid Interpretation Code 27.0 - 31.2 pg AO Workflow SS MCHC 34.5 G/dL Invalid Interpretation Code 33.0 - 37.0 G/dL AO Workflow SS MCV (RBC) [Entitic vol] 92.0 fL Invalid Interpretation Code 80.0 - 94.0 fL AO Workflow SS Monocyte, Absolute 0.5 103/mcL Invalid Interpretation Code 0.2 - 1.0 10^3/mcL AO Workflow SS Monocytes/100 WBC (Bld) 6.9 % Invalid Interpretation Code 1.7 - 13.0 % AO Workflow SS Neutrophil, Absolute 5.0 103/mcL Invalid Interpretation Code 2.9 - 6.2 10^3/mcL AO Workflow SS Neutrophils/100 WBC (Bld) 65.0 % Invalid Interpretation Code 37.0 - 80.0 % AO Workflow SS Platelet Estimate Normal *NA* (07/17/22 5:00 AM) Invalid Interpretation Code AO Workflow SS Platelet mean volume (Bld) [Entitic vol] 7.0 fL Invalid Interpretation Code 7.4 - 10.4 fL AO Workflow SS Platelets (Bld) [#/Vol] 319 103/mcL Invalid Interpretation Code 130 - 400 10^3/mcL AO Workflow SS RBC (Bld) [#/Vol] 2.71 106/mcL Invalid Interpretation Code 4.20 - 5.40 10^6/mcL AO Workflow SS WBC (Bld) [#/Vol] 7.7 103/mcL Invalid Interpretation Code 4.6 - 10.8 10^3/mcL AO Workflow SS LABORATORYOrdered By: Lilia Castaneda on 07-16-2022 Hemoglobin.gastrointest inal Ql (Stl) Negative (07/16/22 11:26 AM) Invalid Interpretation Code Negative AO Rapid Testing SS LABORATORYOrdered By: Jennifer Martinez on 07-16-2022 Basophil, Absolute 0.1 103/mcL Invalid Interpretation Code 0.0 - 0.2 10^3/mcL AO Workflow SS Basophils/100 WBC (Bld) 0.9 % Invalid Interpretation Code 0.0 - 2.5 % AO Workflow SS Eosinophil, Absolute 0.4 103/mcL Invalid Interpretation Code 0.0 - 0.4 10^3/mcL AO Workflow SS Eosinophils/100 WBC (Bld) 3.8 % Invalid Interpretation Code 0.0 - 7.0 % AO Workflow SS Erythrocyte distribution width (RBC) [Ratio] 13.3 % Invalid Interpretation Code 11.5 - 14.5 % AO Workflow SS Hematocrit (Bld) [Volume fraction] 26.3 % Invalid Interpretation Code 37.0 - 47.0 % AO Workflow SS Hemoglobin (Bld) [Mass/Vol] 9.0 G/dL Invalid Interpretation Code 12.0 - 16.0 G/dL AO Workflow SS Lymphocyte, Absolute 1.2 103/mcL Invalid Interpretation Code 0.8 - 3.9 10^3/mcL AO Workflow SS Lymphocytes/100 WBC (Bld) 11.6 % Invalid Interpretation Code 10.0 - 50.0 % AO Workflow SS MCH (RBC) [Entitic mass] 31.9 pg Invalid Interpretation Code 27.0 - 31.2 pg AO Workflow SS MCHC 34.4 G/dL Invalid Interpretation Code 33.0 - 37.0 G/dL AO Workflow SS MCV (RBC) [Entitic vol] 92.7 fL Invalid Interpretation Code 80.0 - 94.0 fL AO Workflow SS Monocyte, Absolute 0.6 103/mcL Invalid Interpretation Code 0.2 - 1.0 10^3/mcL AO Workflow SS Monocytes/100 WBC (Bld) 5.3 % Invalid Interpretation Code 1.7 - 13.0 % AO Workflow SS Neutrophil, Absolute 8.4 103/mcL Invalid Interpretation Code 2.9 - 6.2 10^3/mcL AO Workflow SS Neutrophils/100 WBC (Bld) 78.4 % Invalid Interpretation Code 37.0 - 80.0 % AO Workflow SS Platelet mean volume (Bld) [Entitic vol] 7.4 fL Invalid Interpretation Code 7.4 - 10.4 fL AO Workflow SS Platelets (Bld) [#/Vol] 334 103/mcL Invalid Interpretation Code 130 - 400 10^3/mcL AO Workflow SS RBC (Bld) [#/Vol] 2.83 106/mcL Invalid Interpretation Code 4.20 - 5.40 10^6/mcL AO Workflow SS WBC (Bld) [#/Vol] 10.7 103/mcL Invalid Interpretation Code 4.6 - 10.8 10^3/mcL AO Workflow SS LABORATORYOrdered By: SYSTEM SYSTEM on 01-20-2022 Albumin BCP dye [Mass/Vol] 4.0 G/dL Invalid Interpretation Code 3.4 - 4.8 G/dL AO ADM SS Albumin/Globulin [Mass ratio] 1.3 {ratio} Invalid Interpretation Code 1.1 - 2.5 ratio AO ADM SS ALP [Catalytic activity/Vol] 89 U/L Invalid Interpretation Code 40 - 135 U/L AO ADM SS ALT With P-5'-P [Catalytic activity/Vol] 20 U/L Invalid Interpretation Code 14 - 59 U/L AO ADM SS AST With P-5'-P [Catalytic activity/Vol] 22 U/L Invalid Interpretation Code 10 - 40 U/L AO ADM SS Bilirubin [Mass/Vol] 0.4 mg/dL Invalid Interpretation Code 0.2 - 1.0 mg/dL AO ADM SS Calcium [Mass/Vol] 9.5 mg/dL Invalid Interpretation Code 8.4 - 10.2 mg/dL AO ADM SS Chloride [Moles/Vol] 99 mmol/L Invalid Interpretation Code 98 - 107 mmol/L AO ADM SS CO2 [Moles/Vol] 30 mmol/L Invalid Interpretation Code 23 - 31 mmol/L AO ADM SS Creatinine [Mass/Vol] 0.62 mg/dL Invalid Interpretation Code 0.55 - 1.02 mg/dL AO ADM SS Electrolyte Balance 7.0 mEq/L Invalid Interpretation Code 4.0 - 15.0 mEq/L AO ADM SS Globulin 3.1 G/dL Invalid Interpretation Code AO ADM SS Glucose [Mass/Vol] 108 mg/dL Invalid Interpretation Code 83 - 110 mg/dL AO ADM SS Potassium [Moles/Vol] 4.9 mmol/L Invalid Interpretation Code 3.5 - 5.1 mmol/L AO ADM SS Protein [Mass/Vol] 7.1 G/dL Invalid Interpretation Code 6.4 - 8.2 G/dL AO ADM SS Sodium [Moles/Vol] 136 mmol/L Invalid Interpretation Code 136 - 145 mmol/L AO ADM SS Urea nitrogen [Mass/Vol] 8 mg/dL Invalid Interpretation Code 7 - 18 mg/dL AO ADM SS Urea nitrogen/Creatinine [Mass ratio] 13 ratio Invalid Interpretation Code 7 - 27 ratio AO ADM SS Vit. D 25-Hydroxy 54.4 ng/mL Invalid Interpretation Code AO ADM SS LABORATORYOrdered By: Portia Connolly on 01-20-2022 Basophil, Absolute 0.1 103/mcL Invalid Interpretation Code 0.0 - 0.2 10^3/mcL AO Workflow SS Basophils/100 WBC (Bld) 0.7 % Invalid Interpretation Code 0.0 - 2.5 % AO Workflow SS Eosinophil, Absolute 0.0 103/mcL Invalid Interpretation Code 0.0 - 0.4 10^3/mcL AO Workflow SS Eosinophils/100 WBC (Bld) 0.3 % Invalid Interpretation Code 0.0 - 7.0 % AO Workflow SS Erythrocyte distribution width (RBC) [Ratio] 12.6 % Invalid Interpretation Code 11.5 - 14.5 % AO Workflow SS Hematocrit (Bld) [Volume fraction] 41.9 % Invalid Interpretation Code 37.0 - 47.0 % AO Workflow SS Hemoglobin (Bld) [Mass/Vol] 14.5 G/dL Invalid Interpretation Code 12.0 - 16.0 G/dL AO Workflow SS Lymphocyte, Absolute 1.4 103/mcL Invalid Interpretation Code 0.8 - 3.9 10^3/mcL AO Workflow SS Lymphocytes/100 WBC (Bld) 10.9 % Invalid Interpretation Code 10.0 - 50.0 % AO Workflow SS MCH (RBC) [Entitic mass] 32.3 pg Invalid Interpretation Code 27.0 - 31.2 pg AO Workflow SS MCHC 34.5 G/dL Invalid Interpretation Code 33.0 - 37.0 G/dL AO Workflow SS MCV (RBC) [Entitic vol] 93.6 fL Invalid Interpretation Code 80.0 - 94.0 fL AO Workflow SS Monocyte, Absolute 0.9 103/mcL Invalid Interpretation Code 0.2 - 1.0 10^3/mcL AO Workflow SS Monocytes/100 WBC (Bld) 6.8 % Invalid Interpretation Code 1.7 - 13.0 % AO Workflow SS Neutrophil, Absolute 10.4 103/mcL Invalid Interpretation Code 2.9 - 6.2 10^3/mcL AO Workflow SS Neutrophils/100 WBC (Bld) 81.3 % Invalid Interpretation Code 37.0 - 80.0 % AO Workflow SS Platelet mean volume (Bld) [Entitic vol] 8.7 fL Invalid Interpretation Code 7.4 - 10.4 fL AO Workflow SS Platelets (Bld) [#/Vol] 243 103/mcL Invalid Interpretation Code 130 - 400 10^3/mcL AO Workflow SS RBC (Bld) [#/Vol] 4.48 106/mcL Invalid Interpretation Code 4.20 - 5.40 10^6/mcL AO Workflow SS WBC (Bld) [#/Vol] 12.8 103/mcL Invalid Interpretation Code 4.6 - 10.8 10^3/mcL AO Workflow SS LABORATORYOrdered By: Rachel Santillan on 01-20-2022 Cholesterol [Mass/Vol] 158 mg/dL Invalid Interpretation Code 0 - 200 mg/dL AO ADM SS Cholesterol in HDL [Mass/Vol] 75 mg/dL Invalid Interpretation Code 40 - 60 mg/dL AO ADM SS Cholesterol in LDL [Mass/Vol] 63 mg/dL Invalid Interpretation Code 0 - 130 mg/dL AO ADM SS Triglyceride [Mass/Vol] 102 mg/dL Invalid Interpretation Code 0 - 150 mg/dL AO ADM SS Vital Signs Date Time Vital Sign Value Performing Clinician Facility 02-15-2024 14:59-0500 Body height 157.48 cm Savage Gilliam MD Work Phone: [facility] 02-15-2024 14:59-0500 Body mass index (BMI) [Ratio] 23.2 kg/m2 Savage Gilliam MD Work Phone: [facility] 02-15-2024 14:59-0500 Body weight 57.6 kg Savage Gilliam MD Work Phone: [facility] 02-15-2024 14:59-0500 Diastolic blood pressure 70 mm[Hg] Savage Gilliam MD Work Phone: [facility] 02-15-2024 14:59-0500 Heart rate 53 /min Savage Gilliam MD Work Phone: [facility] 02-15-2024 14:59-0500 Respiratory rate 16 /min Savage Gilliam MD Work Phone: [facility] 02-15-2024 14:59-0500 Systolic blood pressure 116 mm[Hg] Savage Gilliam MD Work Phone: [facility] 02-07-2024 13:13-0500 Body temperature 97.8 [degF] Savage Gilliam MD Work Phone: [facility] 02-07-2024 13:13-0500 Diastolic blood pressure 72 mm[Hg] Savage Gilliam MD Work Phone: [facility] 02-07-2024 13:13-0500 Heart rate 45 /min Savage Gilliam MD Work Phone: [facility] 02-07-2024 13:13-0500 Respiratory rate 20 /min Savage Gilliam MD Work Phone: [facility] 02-07-2024 13:13-0500 SaO2% (BldA) [Mass fraction] 100 % Savage Gilliam MD Work Phone: [facility] 02-07-2024 13:13-0500 Systolic blood pressure 143 mm[Hg] Savage Gilliam MD Work Phone: [facility] 02-07-2024 09:05-0500 Body mass index (BMI) [Ratio] 23.7 kg/m2 Savage Gilliam MD Work Phone: [facility] 02-07-2024 09:05-0500 Body weight 58.9 kg Savage Gilliam MD Work Phone: [facility] 01-18-2024 08:38-0500 Body temperature 97.9 [degF] Savage Gilliam MD Work Phone: [facility] 01-18-2024 08:38-0500 Diastolic blood pressure 66 mm[Hg] Savage Gilliam MD Work Phone: [facility] 01-18-2024 08:38-0500 Heart rate 43 /min Savage Gilliam MD Work Phone: [facility] 01-18-2024 08:38-0500 Respiratory rate 16 /min Savage Gilliam MD Work Phone: [facility] 01-18-2024 08:38-0500 SaO2% (BldA) [Mass fraction] 96 % Savage Gilliam MD Work Phone: [facility] 01-18-2024 08:38-0500 Systolic blood pressure 151 mm[Hg] Savage Gilliam MD Work Phone: [facility] 01-17-2024 12:29-0500 Body mass index (BMI) [Ratio] 22.8 kg/m2 Savage Gilliam MD Work Phone: [facility] 01-17-2024 12:29-0500 Body weight 56.69 kg Savage Gilliam MD Work Phone: [facility] 12-31-2023 00:52-0500 Body temperature 97.8 [degF] Savage Gilliam MD Work Phone: [facility] 12-31-2023 00:52-0500 Diastolic blood pressure 82 mm[Hg] Savage Gilliam MD Work Phone: [facility] 12-31-2023 00:52-0500 Heart rate 51 /min Savage Gilliam MD Work Phone: [facility] 12-31-2023 00:52-0500 Respiratory rate 18 /min Savage Gilliam MD Work Phone: [facility] 12-31-2023 00:52-0500 SaO2% (BldA) [Mass fraction] 98 % Savage Gilliam MD Work Phone: [facility] 12-31-2023 00:52-0500 Systolic blood pressure 173 mm[Hg] Savage Gilliam MD Work Phone: [facility] 12-30-2023 21:31-0500 Body mass index (BMI) [Ratio] 24.2 kg/m2 Savage Gilliam MD Work Phone: [facility] 12-30-2023 21:31-0500 Body weight 60 kg Savage Gilliam MD Work Phone: [facility] 04-14-2023 14:50-0500 Diastolic blood pressure 80 mm[Hg] DR MIKE KEARNEY MD [facility] 04-14-2023 14:50-0500 Heart rate 76 /min DR MIKE KEARNEY MD [address] [place] [id number] 04-14-2023 14:50-0500 Respiratory rate 16 /min DR MIKE KEARNEY MD [address] [place] [id number] 04-14-2023 14:50-0500 Systolic blood pressure 122 mm[Hg] DR MIKE KEARNEY MD [address] [place] [id number] 04-14-2023 13:49-0500 Diastolic Blood Pressure Non-Invasive 80 mm[Hg] DR MIKE KEARNEY MD [address] [place] [id number] 04-14-2023 13:49-0500 Heart rate 45 /min DR MIKE KEARNEY MD [address] [place] [id number] 04-14-2023 13:49-0500 Respiratory rate 16 /min DR MIKE KEARNEY MD [address] [place] [id number] 04-14-2023 13:49-0500 Systolic Blood Pressure Non-Invasive 120 mm[Hg] DR MIKE KEARNEY MD [address] [place] [id number] 04-14-2023 13:42-0500 Diastolic Blood Pressure Non-Invasive 76 mm[Hg] DR MIKE KEARNEY MD [address] [place] [address] 04-14-2023 13:42-0500 Heart rate 60 /min DR MIKE KEARNEY MD [address] [place] [address] 04-14-2023 13:42-0500 Respiratory rate 16 /min DR MIKE KEARNEY MD [address] [place] [id number] 04-14-2023 13:42-0500 Systolic Blood Pressure Non-Invasive 115 mm[Hg] DR MIKE KEARNEY MD [address] [place] [id number] 04-14-2023 13:36-0500 Body temperature 98.6 [degF] DR MIKE KEARNEY MD [address] [place] [id number] 04-14-2023 13:36-0500 Diastolic Blood Pressure Non-Invasive 66 mm[Hg] DR MIKE KEARNEY MD [address] [place] [address] 04-14-2023 13:36-0500 Heart rate 42 /min DR MIKE KEARNEY MD [address] 04-14-2023 13:36-0500 Systolic Blood Pressure Non-Invasive 114 mm[Hg] DR MIKE KEARNEY MD [address] 04-14-2023 13:35-0500 Heart rate 44 /min DR MIKE KEARNEY MD [address] 04-14-2023 13:35-0500 Respiratory Rate - Anes 0 br/min DR MIKE KEARNEY MD [address] 04-14-2023 13:30-0500 Respiratory Rate - Anes 0 br/min DR MIKE KEARNEY MD [address] 04-14-2023 13:25-0500 Respiratory Rate - Anes 27 br/min DR MIKE KEARNEY MD [address] 04-14-2023 12:44-0500 Body temperature 97.88 [degF] DR MIKE KEARNEY MD [facility] 04-14-2023 12:44-0500 Body weight 24.51 kg/m2 DR MIKE KEARNEY MD [address] 04-14-2023 12:44-0500 Heart rate 88 /min DR MIKE KEARNEY MD [facility] 04-11-2023 11:05-0500 Body height 157.5 cm ELADIO EDUARDO MD [facility] 04-11-2023 11:05-0500 Body temperature 96.8 [degF] ELADIO EDUARDO MD [facility] 04-11-2023 11:05-0500 Body weight 63 kg ELADIO EDUARDO MD [facility] 04-11-2023 11:05-0500 Diastolic Blood Pressure Non-Invasive 81 mm[Hg] ELADIO EDUARDO MD [facility] 04-11-2023 11:05-0500 Heart rate 74 /min ELADIO EDUARDO MD [facility] 04-11-2023 11:05-0500 Respiratory rate 20 /min ELADIO EDUARDO MD [facility] 04-11-2023 11:05-0500 Systolic Blood Pressure Non-Invasive 137 mm[Hg] ELADIO EDUARDO MD [facility] 01-21-2023 12:31-0500 Diastolic blood pressure 89 mm[Hg] Dr. Mariann Trent Work Phone: [facility] 01-21-2023 12:31-0500 SaO2% (BldA) [Mass fraction] 97 % Dr. Mariann Trent Work Phone: [facility] 01-21-2023 12:31-0500 Systolic blood pressure 145 mm[Hg] Dr. Mariann Trent Work Phone: [facility] 01-21-2023 10:05-0500 Heart rate 65 /min Dr. Mariann Trent Work Phone: [facility] 01-21-2023 09:03-0500 Body height 157.[address] Mariann Trent Work Phone: [facility] 01-21-2023 09:03-0500 Body mass index (BMI) [Ratio] 25.7 kg/m2 Dr. Mariann Trent Work Phone: [facility] 01-21-2023 09:03-0500 Body temperature 97.2 [degF] Dr. Mariann Trent Work Phone: [facility] 01-21-2023 09:03-0500 Body weight 63.[address] Mariann Trent Work Phone: [facility] 01-21-2023 09:03-0500 Respiratory rate 16 /min Dr. Mariann Trent Work Phone: [facility] 01-20-2023 15:00-0500 Heart rate 65 /min Dr. Mariann Trent Work Phone: [facility] 01-20-2023 14:58-0500 Body temperature 98.3 [degF] Dr. Mariann Trent Work Phone: [facility] 01-20-2023 14:58-0500 Diastolic blood pressure 89 mm[Hg] Dr. Mariann Trent Work Phone: [facility] 01-20-2023 14:58-0500 Respiratory rate 18 /min Dr. Mariann Trent Work Phone: [facility] 01-20-2023 14:58-0500 SaO2% (BldA) [Mass fraction] 94 % Dr. Mariann Trent Work Phone: [facility] 01-20-2023 14:58-0500 Systolic blood pressure 130 mm[Hg] Dr. Mariann Trent Work Phone: [facility] 01-15-2023 23:40-0500 Body height 157.[address] Mariann Trent Work Phone: [facility] 01-15-2023 23:40-0500 Body mass index (BMI) [Ratio] 24.5 kg/m2 Dr. Mariann Trent Work Phone: [facility] 01-15-2023 23:40-0500 Body weight 60.[address] Mariann Trent Work Phone: [facility] 01-15-2023 23:13-0500 Diastolic blood pressure 117 mm[Hg] [facility] 01-15-2023 23:13-0500 Systolic blood pressure 154 mm[Hg] [facility] 01-15-2023 22:06-0500 Heart rate 88 /min [facility] 01-15-2023 22:06-0500 Respiratory rate 18 /min [facility] 01-15-2023 22:06-0500 SaO2% (BldA) [Mass fraction] 96 % [facility] 01-15-2023 20:06-0500 Body height 157.48 cm [facility] 01-15-2023 20:06-0500 Body mass index (BMI) [Ratio] 26.5 kg/m2 [facility] 01-15-2023 20:06-0500 Body temperature 97.1 [degF] [facility] 01-15-2023 20:06-0500 Body weight 65.8 kg [facility] 07-25-2022 09:15-0400 Diastolic Blood Pressure Non-Invasive 84 1 INGA ARANGOANGELA WINDOWS SECURITY ANALYST-PAD ASSEMBLER [facility] 07-25-2022 09:15-0400 Heart rate 79 /min INGANASH ARANGOANGELA WINDOWS SECURITY ANALYST-PAD ASSEMBLER [facility] 07-25-2022 09:15-0400 Systolic Blood Pressure Non-Invasive 147 1 INGANASH ARANGOANGELA WINDOWS SECURITY ANALYST-PAD ASSEMBLER [facility] 07-25-2022 07:38-0400 Body temperature 97.88 [degF] INGA ARANGOANGELA WINDOWS SECURITY ANALYST-PAD ASSEMBLER [facility] 07-25-2022 07:38-0400 Diastolic Blood Pressure Non-Invasive 84 1 INGA ARANGOANGELA WINDOWS SECURITY ANALYST-PAD ASSEMBLER [facility] 07-25-2022 07:38-0400 Heart rate 79 /min NIGA ARANGOANGELA WINDOWS SECURITY ANALYST-PAD ASSEMBLER [facility] 07-25-2022 07:38-0400 Respiratory rate 18 /min INGANASH ARANGOANGELA WINDOWS SECURITY ANALYST-PAD ASSEMBLER [facility] 07-25-2022 07:38-0400 Systolic Blood Pressure Non-Invasive 147 1 INGA NBAANGELA WINDOWS SECURITY ANALYST-PAD ASSEMBLER [facility] 07-25-2022 06:26-0400 Diastolic Blood Pressure Non-Invasive 96 1 INGA ROMEROTess WINDOWS SECURITY ANALYST-PAD ASSEMBLER [facility] 07-25-2022 06:26-0400 Heart rate 84 /min INGA ROMEROTess WINDOWS SECURITY ANALYST-PAD ASSEMBLER [facility] 07-25-2022 06:26-0400 Respiratory rate 18 /min INGA MONATNEZ WINDOWS SECURITY ANALYST-PAD ASSEMBLER [facility] 07-25-2022 06:26-0400 Systolic Blood Pressure Non-Invasive 162 1 INGA ROMEROTess WINDOWS SECURITY ANALYST-PAD ASSEMBLER [facility] 07-24-2022 19:43-0400 Body temperature 98.6 [degF] INGA ROMEROTess WINDOWS SECURITY ANALYST-PAD ASSEMBLER [facility] 07-24-2022 19:43-0400 Reason For Taking VItal Signs INGA ARANGOANGELA WINDOWS SECURITY ANALYST-PAD ASSEMBLER [facility] 07-24-2022 19:43-0400 Respiratory rate 20 /min INGA ROMEROTess WINDOWS SECURITY ANALYST-PAD ASSEMBLER [facility] 07-24-2022 15:36-0400 Body temperature 97.88 [degF] INGA MONTANEZ WINDOWS SECURITY ANALYST-PAD ASSEMBLER [facility] 07-24-2022 09:35-0400 Blood Pressure Location INGA ARANGOANGELA WINDOWS SECURITY ANALYST-PAD ASSEMBLER [facility] 07-24-2022 09:35-0400 Blood Pressure Method INGA ARANGOANGELA WINDOWS SECURITY ANALYST-PAD ASSEMBLER [facility] 07-24-2022 02:39-0400 Blood Pressure Cuff Size INGA MONTANEZ WINDOWS SECURITY ANALYST-PAD ASSEMBLER [facility] 07-24-2022 02:39-0400 Blood Pressure Location INGA MNOTANEZ WINDOWS SECURITY ANALYST-PAD ASSEMBLER [facility] 07-24-2022 02:39-0400 Blood Pressure Method INGA MONTANEZ WINDOWS SECURITY ANALYST-PAD ASSEMBLER [facility] 07-24-2022 02:39-0400 Heart rate 76 /min INGA MONTANEZ WINDOWS SECURITY ANALYST-PAD ASSEMBLER [facility] 07-24-2022 02:39-0400 Reason For Taking VItal Signs INGA MONTANEZ WINDOWS SECURITY ANALYST-PAD ASSEMBLER [facility] 07-23-2022 22:27-0400 Heart rate 78 /min INGA MONTANEZ WINDOWS SECURITY ANALYST-PAD ASSEMBLER [facility] 07-23-2022 17:19-0400 Heart rate 68 /min INGA MONTANEZ WINDOWS SECURITY ANALYST-PAD ASSEMBLER [facility] 07-23-2022 17:19-0400 Reason For Taking VItal Signs INGA MONTANEZ WINDOWS SECURITY ANALYST-PAD ASSEMBLER [facility] 07-23-2022 05:13-0400 Body weight 57.4 kg INAG MONTANEZ WINDOWS SECURITY ANALYST-PAD ASSEMBLER [facility] 07-22-2022 23:15-0400 Heart rate 72 /min INGA MONTANEZ WINDOWS SECURITY ANALYST-PAD ASSEMBLER [facility] 07-22-2022 14:47-0400 Heart rate 81 /min INGANASH MONTANEZ WINDOWS SECURITY ANALYST-PAD ASSEMBLER [facility] 07-22-2022 05:55-0400 Blood Pressure Location INGANASH MONTANEZ WINDOWS SECURITY ANALYST-PAD ASSEMBLER [facility] 07-22-2022 05:55-0400 Blood Pressure Method INGA MONTANEZ WINDOWS SECURITY ANALYST-PAD ASSEMBLER [facility] 07-21-2022 22:21-0400 Heart rate 76 /min INGA MONTANEZ WINDOWS SECURITY ANALYST-PAD ASSEMBLER [facility] 07-19-2022 15:45-0400 Blood Pressure Cuff Size INGA MONTANEZ WINDOWS SECURITY ANALYST-PAD ASSEMBLER [facility] 07-18-2022 15:34-0400 Blood Pressure Cuff Size INGA MONTANEZ WINDOWS SECURITY ANALYST-PAD ASSEMBLER [facility] 07-16-2022 04:36-0400 Body weight 61.4 kg INGA MONTANEZ WINDOWS SECURITY ANALYST-PAD ASSEMBLER [facility] 07-15-2022 18:25-0400 Body height 157.5 cm INGA MONTANEZ WINDOWS SECURITY ANALYST-PAD ASSEMBLER [facility] 07-15-2022 18:25-0400 Body weight 65.2 kg INGA MONTANEZ WINDOWS SECURITY ANALYST-PAD ASSEMBLER [facility] 07-15-2022 18:25-0400 Body weight 26.28 kg/m2 INGA MONTANEZ WINDOWS SECURITY ANALYST-PAD ASSEMBLER [facility] Encounters Encounter Date Encounter Type Care Provider Facility Start: 10-18-2024 ambulatory Savage Gilliam Facility:[facility] Start: 04-18-2024 Encounter for genera l adult medical examination without abnormal findings Rob Lieberman NP [facility] Start: 04-05-2024 End: 04-05-2024 ambulatory Savage Gilliam MD Work Phone: [facility] Work Phone: Start: 04-05-2024 End: 04-05-2024 Patient encounter procedure Rob McMorrow DATA CENTER ENGINEER-C -Cat Scan, [facility] Work Phone: Start: 04-05-2024 End: 04-05-2024 ambulatory [facility] Facility:[facility] Start: 02-15-2024 End: 02-15-[address] Kd Wolfe MD -[facility] Work Phone: Start: 02-15-2024 End: 02-15-2024 ambulatory [facility] [place] Start: 02-07-2024 ambulatory Inés Sierra Fa cility:[facility] Start: 02-07-2024 Non-patient / Non-visit Dr. Amy Sierra MD -[facility] Work Phone: Start: 02-07-2024 End: 02-07-[address] Jacob Morgan DO -Pulmonary Services/Neurology Work Phone: Start: 02-07-2024 End: 02-07-2024 Emergency department patient visit Dr. Jacob Morgan DO -Emergency Department Work Phone: Start: 02-07-2024 End: 02-07-2024 ambulatory [facility] Facility:[facility] Start: 01-18-2024 Non-patient / Non-visit Dr. Shelbie Eddy MD -[facility] Work Phone: Start: 01-17-2024 Non-patient / Non-visit Dr. Shelbie Eddy MD -[facility] Work Phone: Start: 01-17-2024 End: 01-18-2024 ambulatory Sukumar Eddy Facility:[facility] Start: 01-17-2024 End: 01-18-2024 Evaluation and management of inpatient Dr. Sukumar Eddy MD -Medical Surgical 3 Work Phone: Start: 12-30-2023 End: 12-31-2023 Emergency department patient visit Dr. Ava Good DO -Emergency Department Work Phone: Start: 12-23-2023 End: 12-23-[address] Savage Gilliam MD -Laboratory, [facility] Start: 12-23-2023 End: 12-23-2023 ambulatory Savage Gilliam Facility:[facility] Start: 12-06-2023 End: 12-06-2023 Emergency department patient visit Herman Boogie Facility:[facility] Start: 07-21-[address] EIZAID WINDOWS SECURITY ANALYST-PAD ASSEMBLER Facility:B Start: 04-14-2023 End: 04-14-2023 ambulatory NAINA JERNIGAN MD Facility:A Start: 04-14-2023 End: 04-14-[address] MIKE KEARNEY MD [facility] Start: 04-11-2023 End: 04-11-2023 Emergency department patient visit ELADIO EDUARDO MD [facility] Start: 03-16-[address] PATRICK WINDOWS SECURITY ANALYST-PAD ASSEMBLER Facility:A Start: 03-09-2023 End: 03-09-2023 ambulatory CHELITA Nuno VERA WINDOWS SECURITY ANALYST-PAD ASSEMBLER Facility:B Start: 03-09-2023 End: 03-09-[address] MIKE KEARNEY MD [facility] Start: 01-21-2023 End: 01-21-2023 Emergency department patient visit Dr. Mariann Trent Work Phone: [facility]-Emergency Department Work Phone: Start: 01-20-2023 Non-patient / Non-visit Dr. Claudia Trent Work Phone: [facility] Work Phone: Start: 01-19-2023 Non-patient / Non-visit Dr. Claudia Trent Work Phone: [facility] Work Phone: Start: 01-18-2023 Non-patient / Non-visit Dr. Claudia Trent Work Phone: [facility] Work Phone: Start: 01-17-2023 Non-patient / Non-visit Dr. Claudia Trent Work Phone: [facility] Work Phone: Start: 01-17-2023 Non-patient / Non-visit Dr. Claudia Trent Work Phone: [facility] Start: 01-16-2023 Non-patient / Non-visit Dr. Claudia Trent Work Phone: [facility] Work Phone: Start: 01-15-2023 End: 01-20-2023 Evaluation and management of inpatient [facility]-Medical Surgical 3 Work Phone: Start: 01-15-2023 observation encounter W [facility] Work Phone: Start: 12-24-2022 End: 12-24-2022 ambulatory CHELITA GAMEZ WINDOWS SECURITY ANALYST-PAD ASSEMBLER Facility:B Start: 12-24-2022 End: 12-24-2022 Patient encounter procedure CHELITA GAMEZ WINDOWS SECURITY ANALYST-PAD ASSEMBLER [facility] Start: 11-29-2022 ambulatory CHELITA ROMERO WINDOWS SECURITY ANALYST-PAD ASSEMBLER Facility:B Start: 09-23-2022 End: 09-23-2022 ambulatory CHELITA GAMEZ WINDOWS SECURITY ANALYST-PAD ASSEMBLER Facility:[facility] Start: 08-30-2022 End: 08-30-2022 ambulatory CHELITA GAMEZ WINDOWS SECURITY ANALYST-PAD ASSEMBLER Facility:A Start: 08-02-2022 End: 08-02-2022 ambulatory CHELITA GAMEZ WINDOWS SECURITY ANALYST-PAD ASSEMBLER Facility:A Start: 08-02-2022 End: 08-02-2022 Patient encounter procedure MAURY CASTELLANOS MD [facility] Start: 07-29-2022 End: 07-29-2022 ambulatory CHELITA Yaakov VERA WINDOWS SECURITY ANALYST-PAD ASSEMBLER Facility:B Start: 07-29-2022 End: 07-29-2022 Patient encounter procedure CURTIS SULLIVAN WINDOWS SECURITY ANALYST-PAD ASSEMBLER [facility] Start: 07-27-2022 End: 08-31-2022 ambulatory CHELITA GAMEZ WINDOWS SECURITY ANALYST-PAD ASSEMBLER Facility:R Start: 07-22-[address] MIKE KEARNEY MD Facil ity:[facility] Start: 07-15-2022 End: 07-25-2022 Evaluation and management of inpatient INGA MONTANEZ WINDOWS SECURITY ANALYST-PAD ASSEMBLER [facility] Start: 04-28-2022 End: 04-28-2022 Patient encounter procedure PAT HALE WINDOWS SECURITY ANALYST-PAD ASSEMBLER [facility] Start: 01-20-2022 End: 01-20-2022 Patient encounter procedure CHELITA Nuno VERA WINDOWS SECURITY ANALYST-PAD ASSEMBLER [facility] Start: 02-03-2021 End: 02-03-2021 Patient encounter procedure MARIANN TRENT MD [facility] Procedures Date Procedure Procedure Detail Performing Clinician Start: 04-05-2024 CT of chest Savage aslhey MD Work Phone: Start: 02-15-2024 Evaluation of diagno stic study results Savage Gilliam MD Work Phone: Start: 02-07-2024 Plain chest X-ray Rodrigo Gilliam MD Work Phone: Start: 01-17-2024 X-ray of chest, PA a nd lateral views Savage Gilliam MD Work Phone: Start: 01-17-2024 CT cervical spine wi thout contrast Savage Gilliam MD Work Phone: Start: 01-17-2024 CT of head without contrast Savage Gilliam MD Work Phone: Start: 01-17-2024 Plain X-ray of shoulder Savage Gilliam MD Work Phone: Start: 12-30-2023 X-ray of chest, PA a nd lateral views Savage Gilliam MD Work Phone: Start: 12-30-2023 CT of head without contrast Savage Gilliam MD Work Phone: Start: 12-30-2023 SARS-CoV-2, Influenz a & RSV (PCR) Savage Gilliam MD Work Phone: Start: 04-14-[address] MIKE GARCIA MD Start: 02-12-[address] BETTY KEARNEY MD Comment on above: Severe concentric le ft ventricular hypertrophy. The left ventricular ejection fraction is 65 %. The left atrium is severely enlarged. The right atrium is mildly enlarged. Mild diffuse mitral valve thickening. Bubble contrast study is negative for PFO/ASD. Aortic valve not well-visualized in short axis. Possibly bioprosthetic valve. Limited 2D echocardiogram with no Doppler. Start: 01-17-[address] BETTY KEARNEY MD Comment on above: The estimated ejecti on fraction is 65 %. No evidence for diastolic dysfunction. The left atrium is mildly enlarged. Start: 01-15-2023 Plain x-ray of hand Start: 01-15-2023 CT cervical spine wi thout contrast Start: 01-15-2023 CT of face Start: 01-15-2023 CT of head without contrast Start: 09-23-2022 Echocardiography BEATRIZ GAMEZ WINDOWS SECURITY ANALYST-PAD ASSEMBLER Comment on above: 1. Left ventricle: T he cavity size is normal. Wall thickness is moderately to severely increased. Systolic function is normal. The estimated ejection fraction is 55-60%. Wall motion is normal; there are no regional wall motion abnormalities. Unable to assess diastolic function. 2. Ventricular septum: Septal motion is dyssynergic. 3. Aortic valve: A bioprosthetic valve is present and functioning normally. 4. Mitral valve: Leaflet mobility is restricted. Diastolic leaflet doming is present. The findings are consistent with moderate stenosis. There is mild regurgitation. 5. Left atrium: The atrium is moderately dilated. 6. Right ventricle: Systolic function is reduced. The RV systolic pressure by Doppler is 33 mm Hg. 7. Right atrium: The estimated right atrial pressure is 3 mm Hg. Start: 07-13-2022 Thoracentesis CHELITA GAMEZ [employer]NA[employer] Comment on above: LEFT FLUID REMOVED: 900 cc FLUID COLOR: Serosanguineous Start: 07-09-2022 History of coronary artery bypass grafting Hx of CABG Dr. Kd Wolfe MD Comment on above: x3: Left internal ma mmary artery to second diagonal branch, reverse saphenous vein graft from aorta to lateral branch of the circumflex, reverse saphenous vein graft from aorta to PD branch of RCA. Start: 07-09-2022 Coronary artery bypass graft CHELITA GAMEZ [employer] Comment on above: 1. Median sternotomy and coronary artery bypass graft x3 by means of left internal mammary artery to second diagonal branch, reverse saphenous vein graft from aorta to lateral branch of the circumflex, reverse saphenous vein graft from aorta to PD branch of RCA. 2. Aortic valve replacement with #23 Magna Ease pericardial tissue valve by Castro. 3. Endoscopic vein harvesting, right leg. Start: 07-09-2022 Transesophageal echocardiography CHELITA GAMEZ APRN-PAD ASSEMBLER Comment on above: 1. Left ventricle: L VEF 55%, severe LVH, no RWMAs. 2. Aortic valve: Extremely calcified, possibly rheumatic, Moderate AI and mild , functionally bicuspid, 23 mm. 3. Systemic arteries: Grade IV disease, extremely tortuous. 4. Mitral valve: Trace to Mild central MR. 5. Left atrium: Mildly dilated, No DANIEL thrombus. 6. Right ventricle: Reasonable function. 7. Pulmonic valve: Trivial PI. 8. Tricuspid valve: Trace to mild central TR. 9. Right atrium: Mildly dilated. 10. Atrial septum: Intact, no PFO. 11. Pericardium, extracardiac: Thickened and calcified, no effusion. 12. Postoperative: S/p CABG x 3, LVEF 55-60%, hyperdynamic, severe LVH, no RWMAs, S/p AVR - 23 mm, BP, wellseated, no PVL, MG -12-14, on EPI/NE. 1. Left ventricle: L VEF 55%, severe LVH, no RWMAs. 2. Aortic valve: Extremely calcified, possibly rheumatic, Moderate AI and mild , functionally bicuspid, 23 mm. 3. Systemic arteries: Grade IV disease, extremely tortuous. 4. Mitral valve: Trace to Mild central MR. 5. Left atrium: Mildly dilated, No DANIEL thrombus. 6. Right ventricle: Reasonable function. 7. Pulmonic valve: Trivial PI. 8. Tricuspid valve: Trace to mild central TR. 9. Right atrium: Mildly dilated. 10. Atrial septum: Intact, no PFO. 11. Pericardium, extracardiac: Thickened and calcified, no effusion. 12. Postoperative: S/p CABG x 3, LVEF 55-60%, hyperdynamic, severe LVH, no RWMAs, S/p AVR - 23 mm, BP, wellseated, no PVL, MG -12-14, on EPI/NE Start: 07-06-2022 Measurement of respi ratory function CHELITA GAMEZ [employer] Comment on above: Normal Start: 07-04-2022 Coronary artery bypa ss grafts x 3 INGA ARANGOANGELA [employer] Comment on above: with aortic valve re placment Start: 07-02-2022 Angioplasty of artery E CARRINGTON VERA [employer] Comment on above: Balloon angioplasty of the right renal artery stent with a 6 mm Akihl. Closure with Mynx Start: 07-01-2022 Cardiac catheterization CHELITA VERA [employer] Comment on above: SUMMARY: 1. Left ventricle: Systolic function is normal. The estimated ejection fraction is 55-60%. 2. LAD: Mid-vessel lesion: There is an 80% stenosis. 3. Left circumflex: Distal vessel lesion: There is a 70% stenosis. 4. Right coronary: Distal vessel lesion: There is a 90% stenosis, at the bifurcation, also involving the the right posterior descending. 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 Start: 06-29-2022 Cardiovascular stress testing CHELTIA GAMEZ [employer] Comment on above: Suggestive moderate severity anterior/anterior lateral wall ischemia No evidence myocardial infarction, RAMP artifact calculated ejection fraction 60% with normal wall motion and thickening Start: 06-29-2022 Echocardiography BEATRIZ GAMEZ [employer] Comment on above: 1. Left ventricle: T he cavity size is normal. Wall thickness is severely increased. Systolic function is normal. The estimated ejection fraction is 60-65%. Unable to assess diastolic function. 2. Aortic valve: There is mild stenosis. There is moderate, 2+ regurgitation. The mean systolic gradient is 15 mm Hg. The peak systolic gradient is 35 mm Hg. The valve area by VTI is 2.2 cm . 3. Mitral valve: The annulus is mildly to moderately calcified. The leaflets are moderately thickened and mildly calcified. Thickening and calcification, consistent with rheumatic disease. The findings are consistent with mild to moderate stenosis. The mean diastolic gradient is 9 mm Hg. The valve area by pressure half-time is 2.4 cm . 4. Left atrium: The atrium is moderately dilated. 5. Right atrium: The estimated right atrial pressure is 3 mm Hg Start: 06-28-2022 Imaging of carotid a rteries by duplex scan with spectrum analysis CHELITA RUBALCAVAER WINDOWS SECURITY ANALYSTUndertone Comment on above: 1. The right vertebr al artery is patent with normal antegrade flow. 2. The left vertebral artery is patent with normal antegrade flow. 3. Mild 1-39% stenosis of the right internal carotid artery. 4. Moderate 40-59% stenosis of the left internal carotid artery. Start: 06-27-2022 Cardiovascular stress testing CHELITA RUBALCAVAER WINDOWS SECURITY ANALYSTUndertone Comment on above: ECG portion of the L exiscan nuclear stress test is negative for inducible ischemia with decreased specificity due to LVH at baseline. Start: 04-28-2022 Echocardiography BEATRIZ GAMEZ WINDOWS SECURITY ANALYST-PAD ASSEMBLER Comment on above: 1. Left ventricle: T he cavity size is normal. Wall thickness is moderately to severely increased. Systolic function is normal. The estimated ejection fraction is 55-60%. 2. Aortic valve: There is moderate regurgitation. 3. Mitral valve: Leaflet mobility is restricted. Diastolic leaflet doming is present. All consistent with rheumatic disease. The findings are consistent with mild stenosis. There is mild regurgitation. 4. Left atrium: The atrium is severely dilated. 5. Right ventricle: The RV systolic pressure by Doppler is 21 mm Hg. 6. Right atrium: The estimated right atrial pressure is 3 mm Hg. Start: 02-21-2020 Total knee replacement MARIANN TRENT MD Comment on above: LEFT Start: 01-25-2020 Measurement of respi ratory function MARIANN TRENT MD Start: 02-15-2017 Echocardiography MARIANN TRENT MD Comment on above: Echocardiogram 018 - 1. Left ventricle: cavity size is normal. Asymmetric hypertrophy of the septum with sigmoid septum. No LVOT gradient. Systolic function is normal. EF is 55-60%. Wall motion is normal; No regional wall motion abnormalities. Grade II diastolic dysfunction with elevated LAP. 2. Aortic valve: There is mild stenosis. There is mild to moderate regurgitation. 3. Mitral valve: There is mild regurgitation. 4. Left atrium: The atrium is markedly dilated. 5. Right ventricle: The RV systolic pressure by Doppler is 26 mm Hg. 6. Right atrium: The estimated right atrial pressure is 8 mm Hg. 07/23/2004 - Normal LVSF EF 60%. LVH. Rheumatic Heart disease with mild MS and MR, moderately severe aortic regurg without stenosis. Normal estimated pulmonary artery pressure of 24 Start: 01-24-2017 Electrocardiographic monitor and recorder, device (physical object) MARIANN TRENT MD Comment on above: Holter/Event Monitor ing [01/25/2017]: 1. Sinus rhythm 38 to 108, average 54 beats per minute. 2. Very rare ventricular ectopic complexes in isolation. 3. Rare to occasional supraventricular ectopic complexes, most in isolation with 7 couplets and 1 triplet. 4. No long pauses or signs of high-grade AV block. 5. Symptoms of dyspnea and fast heart beating were not associated with any ectopy, arrhythmia, or ST segment change Start: 01-14-2017 Electrocardiographic monitoring MARIANN TRENT MD Comment on above: Atrial bradycardia H R 42 BPM Start: 01-29-2010 Cardiovascular stress testing MARIANN TRENT MD Comment on above: Cardiovascular Stres s Test 01/29/2010 - Technically adequate (%PMHR > 85%) ETT. Peak exercise, ECG with no obvious ECG evidence of [place] at the HR achieved. LVEF 66% - 01/27/2010- 1.) Rest and stress SPECT Cardioloite nuclear imaging demonstrate at rest a small area of diminished tracer uptake in the distal anteroseptal segment which appears to improve and / or normalize status post stress thus appearing compatible with resting soft tissue attenuation / artifact. 2.)There are no myocardial perfusion changes considered diagnostic for stress induced myocardial ischemia or previous myocardial injury / infarction. 3.)The gated Cardiolite study reports an LVEF of 66%. Start: 02-20-2008 Structure of medial meniscus of right knee joint MARIANN TRENT MD Start: 02-07-1995 Arthroscopy of knee AND ELIANA TRENT MD Comment on above: left Start: 02-08-1984 Hemorrhoidectomy MARIANN TRENT MD Entire tonsils and a denoids (body structure) MARIANN TRENT MD History of hernia repair AND ELIANA TRENT MD Hysterectomy MARIANN TRENT MD Stapedectomy MARIANN TRENT MD Vascular flow, funct ion (observable entity) MARIANN TRENT MD Comment on above: Vascular Testing Vl Renal Artery Us/Doppler - 1. The left renal artery is consistent with less than a 60% degree of stenosis. 2. The right renal artery is consistent with greater than a 60% degree of stenosis. 3. The right renal vein is patent. 4. The left renal vein is patent. 5. No evidence of abdominal aortic aneurysm Plan of Treatment Date Care Activity Detail Author Start: 02-07-2024 [facility] Start: 02-07-2024 [facility] Start: 01-18-2024 Patient discharge [facility] Start: 01-17-2024 Application of inter mittent pneumatic compression device [facility] Start: 01-17-2024 Ambulation without limitation [facility] Start: 01-17-2024 Assessment of risk o f venous thromboembolism [facility] Start: 01-17-2024 Insertion of cathete r into peripheral vein [facility] Start: 01-17-2024 Providing care accor ding to standard [facility] Start: 01-17-2024 Referral to occupational therapist [facility] Start: 01-17-2024 Referral to service [facility] Start: 01-17-2024 [facility] Start: 01-17-2024 Following clinical p athway protocol [facility] Start: 01-17-2024 Admission procedure [facility] Start: 12-30-2023 Consultation [facility] Start: 12-30-2023 [facility] Start: 01-21-2023 [facility] Start: 01-20-2023 Patient discharge [facility] Start: 01-20-2023 Referral to service [facility] Start: 01-16-2023 Referral to service [facility] Start: 01-16-2023 Blood chemistry [facility] Start: 01-16-2023 Prothrombin time [facility] Start: 01-16-2023 Thyroid stimulating hormone measurement [facility] Start: 01-16-2023 [facility] Start: 01-16-2023 Consultation [facility] Start: 01-15-2023 Following clinical p athway protocol [facility] Start: 01-15-2023 Documentation procedure [facility] Start: 01-15-2023 Assessment of risk o f venous thromboembolism [facility] Start: 01-15-2023 Insertion of cathete r into peripheral vein [facility] Start: 01-15-2023 Measuring intake and output [facility] Start: 01-15-2023 Providing care accor ding to standard [facility] Start: 01-15-2023 Provision of activity privileges [facility] Start: 01-15-2023 Referral to occupational therapist [facility] Start: 01-15-2023 Referral to service [facility] Start: 01-15-2023 Verification routine [facility] Start: 01-15-2023 [facility] Start: 01-15-2023 End: 01-15-2023 Admission procedure [facility] Alanine aminotransfe rase [Enzymatic activity/volume] in Serum or Plasma [facility] Albumin [Mass/volume ] in Serum or Plasma [facility] Alkaline phosphatase [Enzymatic activity/volume] in Serum or Plasma [facility] Anion gap measurement [facility] Aspartate aminotrans ferase [Enzymatic activity/volume] in Serum or Plasma [facility] Bilirubin, total measurement [facility] Bilirubin.direct [Ma ss/volume] in Serum or Plasma [facility] BUN/Creatinine ratio [facility] Calcium [Mass/volume ] in Serum or Plasma [facility] Carbon dioxide, tota l [Moles/volume] in Serum or Plasma [facility] Chloride [Moles/volu me] in Serum or Plasma [facility] Creatinine [Moles/vo lume] in Serum or Plasma [facility] Glucose [Mass/volume ] in Serum or Plasma [facility] Hematocrit [Volume F raction] of Blood [facility] Hemoglobin [Mass/volume] in Blood [facility] INR in Blood by Coagulation assay [facility] Leukocytes [#/volume] in Blood [facility] Magnesium [Mass/volu me] in Serum or Plasma [facility] Mean corpuscular hem oglobin concentration determination [facility] Mean corpuscular hem oglobin determination [facility] Measurement of renal function [facility] Neutrophil count [facility] Neutrophil percent d ifferential count [facility] Patient Education [facility] Work Phone: Patient referral [facility] Work Phone: Platelets [#/volume] in Blood [facility] Potassium [Moles/vol ume] in Serum or Plasma [facility] Red blood cell count [facility] Red cell distributio n width determination [facility] Sodium [Moles/volume ] in Serum or Plasma [facility] Total protein measurement [facility] Urea nitrogen [Mass/ volume] in Serum or Plasma [facility] Immunizations Immunization Date Immunization Notes Care Provider Fa cili 01-28-2023 Pneumococcal conjuga te PCV20, polysaccharide [id number] conjugate, adjuvant, PF; Translations: [Prevnar 20] DR MIKE KEARNEY MD [facility] 11-19-2022 RSV vaccine preF3, recombinant CHELITA GAMEZ WINDOWS SECURITY ANALYST-PAD ASSEMBLER [facility] 11-18-2022 Covid (Spikevax) [facility] 11-18-2022 SARS-CoV-2 (COVID-19 ) [facility]-[id number] ELADIO EDUARDO MD [facility] 11-10-2022 Influenza High-Dose Quadrivalent [facility] 11-10-2022 influenza virus vacc ine, unspecified formulation ELADIO EDUARDO MD [facility] 06-05-2022 zoster vaccine recombinant INGA MONTANEZ WINDOWS SECURITY ANALYST-PAD ASSEMBLER [facility] 03-11-2022 varicella virus vaccine AUGIE Y FERULLO WINDOWS SECURITY ANALYST-PAD ASSEMBLER [facility] 03-11-2022 zoster vaccine recombinant INGA MONTANEZ WINDOWS SECURITY ANALYST-PAD ASSEMBLER [facility] 01-14-2022 Covid Pfizer Bivalen t Booster [facility] 01-14-2022 influenza virus vacc ine, unspecified formulation INGA MONTANEZ WINDOWS SECURITY ANALYST-PAD ASSEMBLER [facility] 01-14-2022 Seasonal, quadrivale nt, recombinant, injectable influenza vaccine, preservative free [facility] 11-26-2020 SARS-CoV-2 mRNA (tozinameran) vaccine MARIANN TRENT MD [facility] 05-20-2020 SARS-CoV-2 mRNA (tozinameran) vaccine MARIANN TRENT MD [facility] 04-29-2020 SARS-CoV-2 mRNA (tozinameran) vaccine MARIANN TRENT MD [facility] 12-19-2019 influenza, injectabl e, quadrivalent, preservative free; Translations: [Fluarix PF Quadrivalent ] MARIANN TRENT MD [facility] 12-29-2018 influenza, injectabl e, quadrivalent, preservative free; Translations: [Fluarix PF Quadrivalent ] MARIANN TRENT MD [facility] 10-19-2016 influenza virus vacc ine, unspecified formulation MARIANN TRENT MD [facility] 10-19-2016 influenza, injectabl e, quadrivalent, preservative free [facility] 10-22-2015 influenza virus vacc ine, unspecified formulation MARIANN TRENT MD [facility] 10-22-2015 Seasonal, quadrivale nt, recombinant, injectable influenza vaccine, preservative free [facility] 12-18-2014 influenza virus vacc ine, unspecified formulation MARIANN TRENT MD [facility] 12-18-2014 Seasonal, quadrivale nt, recombinant, injectable influenza vaccine, preservative free [facility] 07-23-2014 pneumococcal conjuga te vaccine, 13 valent MARIANN TRENT MD [facility] 12-19-2013 influenza virus vacc ine, unspecified formulation MARIANN TRENT MD [facility] 12-19-2013 influenza, injectabl e, quadrivalent, preservative free [facility] 10-01-2011 tetanus toxoid, redu doug diphtheria toxoid, and acellular pertussis vaccine, adsorbed MARIANN TRENT MD [facility] Payers Date Payer Category Payer Self-pay 2022 Private Health Insurance [id number] 2009 Unknown [id number] 1950 Unknown [id number] ..[id number] 1950 Unknown [id number] .840.1.448260.3.579.2.62 1950 Unknown [id number] 2..840.1.706050.3.579.2.62 1949 Unknown [id number] 2.16.840.1.091371.3.579.2.62 1949 Unknown [id number] 2..840.1.982765.3.579.2.627 1949 Unknown [id number] 2.16.840.1.069210.3.579.2.62 1949 Unknown [id number] 2.16.840.1.692826.3.579.2.62 1949 Unknown [id number] 2.16.840.1.067419.3.579.2. 1950 Unknown [id number] 2.16.840.1.935045.3.579.2. 1950 Unknown [id number] 2.16.840.1.996684.3.579.2. 1950 Unknown [id number] 2.840.1.834429.3.579.2. 1950 Unknown [id number] 2.840.1.032942.3.579.2 Medicaid MEDICAID [place] [id number] Medicare MEDICARE PART A B [id number] Unknown [id number] 2.16.840.1.364424.3.579.2.462 Unknown [id number] 2.16840.1.341387.3.579.2.462 Unknown [id number] 2.16840.1.259339.3.579.2.462 Unknown [id number] 2.16840.1.110373.3.579.2.462 Unknown [id number] 2.16840.1.350206.3.579.2.462 Unknown [id number] 2.16.840.1.281275.3.579.2.462 Unknown [id number] 2.16.840.1.575028.3.579.2.462 Unknown [id number] 2.16.840.1.446337.3.579.2.462 Unknown [id number] 2.16.840.1.878781.3.579.2.462 Unknown [id number] 2.16.840.1.987741.3.579.2.462 Unknown [id number] 2.16.840.1.406873.3.579.2.462 Unknown [id number] 2.16.840.1.700943.3.579.2.462 Social History Date Type Detail Facility Start: 12-29-2018 End: 04-14-2023 Heavy tobacco smoker (finding) [facility] Start: 1950 Sex Assigned At Female A [facility] Start: 06-27-2022 Tobacco smoking status Ex-smoker (fi nding) [facility] Start: 01-15-2023 End: 01-21-2023 Tobacco smoking status LAIS Unknown if ever smoked [facility] Start: 02-18-2023 End: 02-07-2024 Tobacco smoking status Light tobacco smoker (finding) [facility] Start: 02-13-2023 Cigarettes Cigarettes [facility] Start: 04-18-2024 Sex Female (finding) [facility] Goals Date Patient Goal Desired Activity /State Functional Status Date Assessment Result Facility 01-18-2024 Functional status Bathroom Privilege [facility] Work Phone: 04-14-2023 Functional Status Minimum assistance [facility] 04-14-2023 Functional Status Patient Identi fied Identification band, Verbal [facility] 04-14-2023 Functional Status Identified as high risk, Fall ID band on, Room located near nursing station, Non-Slip footwear [facility] 04-11-2023 Functional Status Activity Assistance Ind ependent [facility] 01-20-2023 Functional status Up ad deng;Chair [facility] Work Phone: 07-25-2022 Functional Status Room check performed [facility] Ashwini Ashby 07-25-2022 Functional Status Ashwini Chauhan [facility] 07-25-2022 Functional Status Activity Status ADL Sle eping [facility] 07-25-2022 Functional Status Ashwini Chauhan [facility] 07-25-2022 Functional Status Ashwini Chauhan [facility] 07-24-2022 Functional Status Ashwini Chauhan [facility] 07-24-2022 Functional Status Ashwini Chauhan [facility] 07-24-2022 Functional Status Ashwini Chauhan [facility] 07-23-2022 Functional Status Dinner Percent [facility] 07-23-2022 Functional Status Independent Ashwini Chauhan [facility] 07-23-2022 Functional Status Gathering clot juan and making bed this date. Pt reachign in all planes and education on sternal precautions during reaching. Pt with SUP overall using fww. Seated rest break following 3 minutes. [facility] 07-23-2022 Functional Status flight Ashwini Chauhan [facility] 07-23-2022 Functional Status Assistive Device Walker [facility] 07-22-2022 Functional Status Ashwini Chauhan [facility] 07-21-2022 Functional Status Ashwini Chauhan [facility] 07-21-2022 Functional Status Ashwini Chauhan [facility] 07-21-2022 Functional Status SCD On/Re-appl ied bilateral knee high [facility] 07-20-2022 Functional Status Ashwini Chauhan [facility] 07-20-2022 Functional Status Supervised Ashwini Chauhan [facility] 07-20-2022 Functional Status Ashwini Chauhan [facility] 07-20-2022 Functional Status Ashwini Chauhan [facility] 07-19-2022 Functional Status Ashwini Chauhan [facility] 07-19-2022 Functional Status Ashwini Chauhan [facility] 07-19-2022 Functional Status Ashwini Chauhan [facility] 07-19-2022 Functional Status Ashwini Chauhan [facility] 07-18-2022 Functional Status Ashwini Chauhan [facility] 07-18-2022 Functional Status Ashwini Chauhan [facility] 07-16-2022 Functional Status Mobile home Ashwini Chauhan [facility] 07-16-2022 Functional Status Done Ashwini Chauhan [facility] 07-16-2022 Functional Status Min A Ashwini [facility] 07-15-2022 Functional Status Sensory Deficits None [facility] Mental Status Date Assessment Result Facility 02-07-2024 Cognitive function Level Of Cons ciousness Awake;Alert;Appropriate;Follow s Commands [facility] Work Phone: 01-18-2024 Cognitive function Voice/Name [facility] Work Phone: 12-30-2023 Cognitive function Level Of Cons ciousness Awake;Alert;Appropriate;Follow s Commands [facility] Work Phone: 04-14-2023 Mental Status Orientation Oriented x 4 [facility] 04-14-2023 Mental Status [facility] 04-11-2023 Mental Status Orientation Oriented x 4 [facility] 01-21-2023 Cognitive function Level Of Cons ciousness Awake;Alert;Appropriate;Follow s Commands [facility] Work Phone: 01-20-2023 Cognitive function Voice/Name [facility] Work Phone: 01-19-2023 Cognitive function Appropriate;Cooperativ e [facility] Work Phone: 07-25-2022 Mental Status Oriented x 4 [facility] 07-24-2022 Mental Status [facility] 07-24-2022 Mental Status [facility] Clinical Notes 01-20-2022 to 04-06-2024 Note Date & Type Note Facility 04-06-2024 Radiology Diagnostic study note [facility] Imaging Services [address] [place] [address] Lung Screening MR#: [id number] Acct: [id number] Name: MARK MARTIN Rep #: [id number] : 1950 F 74 From: Myron Peterson MD PCP: Dr. Savage Gilliam MD Status: REG CL I Study:Low Dose CT Lung Screening Date of Exam : 04/05/24 Exam# [id number] Ordering Dr: Rob Lieberman NP DATA CENTER ENGINEER-C PROCEDURE: LOW DOSE CT LUNG SCREENING REASON FOR EXAM: Current smoker. Patient has smoked 2 packs per day for 45 years. TECHNIQUE: Low Dose CT Lung Screening without contrast COMPARISON: None. FINDINGS: PULMONARY NODULES: (Only nodules >6mm are reported) Nodules described below are on series 1 unless otherwise specified. Pulmonary Nodules: No concerning pulmonary nodules. Hardware:None Lymph Nodes:No mediastinal hilar or axillary lymphadenopathy. Heart and Vasculature:Normal heart size. No pericardial effusion.Atheroscleroticplaque formation of the aortic arch and descending thoracic aorta. Coronary Artery Calcifications: Present. Prior aortic valve replacement. Lungs and Airways: Mild emphysematous changes are present. Mild scarring in thelingula segment of the left upper lobe as well as at the right lung base. Pleura:No pleural effusion. No pneumothorax. Upper Abdomen:Visualized portions of the upper abdominal viscera are unremarkable. Bones:Degenerative changes of the thoracic spine. CT/Low Dose CT Lung Screening IMPRESSION: 1. BASED ON THE ACR LUNG RADS FOR THE MOST SUSPICIOUS NODULE (IF ANY) DESCRIBEDIN THIS REPORT, THE OVERALL LUNG RADS SCORE IS 2.2 - BENIGN (BASED ON IMAGING FEATURES OR INDOLENT BEHAVIOR). RECOMMEND 12-MONTH SCREENING LDCT.. 2. SMOKING CESSATION COUNSELING IS RECOMMENDED IF THE PATIENT IS STILL SMOKING. 3. OTHER SIGNIFICANT FINDINGSNone. One or more dose reduction techniques were used (e.g., Automated exposure control, adjustment of the mA and/or kV according to patient size, use of iterative reconstruction technique). The following information is provided for reference:Lung-RADS 2022 Assessment Categories. Additional information involving Lung-RADS is available at www.acr.org. 0-INCOMPLETE 1-NEGATIVE:No nodules or definitely benign nodules. Complete, central, popcorn,or centric ring calcifications OR fat containing 2-BENIGN APPEARANCE (based on imaging features or indolent behavior). Juxtapleural nodule: < 10mm AND solid; smooth margins; oval, entiform, or triangular shape Solid nodule: <6mm at baseline or new< 4mm Part solid Nodule: < 6mm total mean diameter at baseline Nonsolid nodule:(GGN) < 30mm OR >=30mm stable or slowly growing Airway nodule, subsegmental at baseline, new, or stable Category 3 nodule stableor decreased in size at 6-month follow-up CT or Category 3 or 4A nodules that resolve on follow-up OR category 4B findings proven to be benign following diagnotic work up. 3 - Probably Benign (Based on imaging features or behavior) Solid Nodule: >= 6 to <8mm at baseline OR new 4 to <6mm Part-solid nodule: >= 6mm toal mean diam. with solid component <6mm at baseline OR new < 6mm total mean diam. Non-solid nodule: GGN >= 30mm at baseline or new Atypical pulmonary cyst: Growing cystic component (mean diam.) of thick-walled cyst Category 4A nodule stable or decreased in size at 3-month follow-up CT (excl.airway). 4A - Suspicious Solid nodule: >=8 to < 15mm at baseline OR growing < 8mm OR new 6 to < 8mm Part solid nodule: >= 6mm total mean diam. w/ solid component >=6mm to < 8mm at baseline OR new or growing < 4mm solid component Airway nodule, segmental or more proximal at baseline or new Atypical pulmonary cyst: Thick-walled OR multilocular at baseline OR becomes multilocular 4B - Very Suspicious Airway nodule, segmental or more proximal, and stable or growing Solid nodule: >= 15mm at baseline OR new or growing >= 8mm Part solid nodule: Solid component >= 8mm OR new or growing >= 4mm solid component Atypical pulmonary cyst: Thick-walled with growing wall thickness/nodularity OR Growing multilocular (mean diam.) OR Multilocular with increased loculation or new/increased opacity Slow-growing solid or part solid nodule w/ growth over multiple screening exams 4X - Very Suspicious Category 3 or 4 nodules with additional features that increase the suspicion forlung cancer. S - Clinically Significant or potentially significant findings (non-lung cancer) 3. OTHER SIGNIFICANT FINDINGSNone. One or more dose reduction techniques were used (e.g., Automated exposure control, adjustment of the mA and/or kV according to patient size, use of iterative reconstruction technique). The following information is provided for reference:Lung-RADS 2022 Assessment Categories. Additional information involving Lung-RADS is available at www.acr.org. 0-INCOMPLETE 1-NEGATIVE:No nodules or definitely benign nodules. Complete, central, popcorn,or centric ring calcifications OR fat containing 2-BENIGN APPEARANCE (based on imaging features or indolent behavior). (more content not included)... [facility] 01-18-2024 Note [facility] Medical Records Department [address] [place] [address] Discharge Summary 01/18/24 1531 MR#: [id number] Acct: [id number] Name: MARK MARTIN Rep #: [id number] : 1950 73 From: Sukumar Eddy MD PCP: Dr. Savage Gilliam MD Status:DIS LARY [facility] Prov[facility] Date of Admission: 01/17/24 Primary Care Physician: Savage Gilliam MD Reason For Visit: WEAKNESS Diagnosis Discharge Diagnosis (1) Generalized weakness: Status: Acute Code(s): R53.1 - Weakness Medications at Discharge Home Medications atorvastatin 40 mg tablet 40 mg PO DAILY 01/15/23 carbamazepine 200 mg tablet 200 mg PO .x4 01/15/23 valsartan 160 mg tablet 160 mg PO BID 01/15/23 amiodarone 200 mg tablet 200 mg PO DAILY 02/11/23 calcium carbonate-vitamin D3 1 tab PO DAILY 02/11/23 multivitamin (Daily Multi-Vitamin tablet) 1 tab PO DAILY 02/11/23 warfarin 3 mg tablet 4.5 mg PO DAILY 02/11/23 aspirin 81 mg chewable tablet 81 mg PO BREAKFAST #1 TAB 02/13/23 carvedilol 25 mg tablet 25 mg PO BID #60 tabs 02/13/23 clonidine HCl 0.2 mg tablet 0.2 mg PO TID 30 days #90 tabs 01/18/24 hydralazine 50 mg tablet 50 mg PO TID 30 days #90 tabs 12/11/24 Hospital Course Operations None Procedures None Summary of Care Provided Minutes Spent on Discharge: 35 Hospital Course: Per HPI: MARK MARTIN, is a 73 F who presents to the hospital with weakness. She lives at home and normally uses a walker to get around but states that this morning when she woke up she was having some increased difficulty with walking even using her walker. She had 3 falls today, none of which did she feel she passed out from. She did hit her head however CT of the brain was negative for head bleed. Urine analysis and chest x-ray were negative for any signs of infection. She was having some right shoulder pain as well but in the ER x-ray was negative for fracture. She did note that her blood pressure was running little bit high recently even though she has been taking her medications and a troponin was obtained in the ER which was elevated but it is chronically elevated and she is not having any chest pain or shortness of breath at this time. Hospital Course: 1. Weakness and debility???73-year-old female presented to the hospital after multiple falls in 1 day she says that her legs just give out from under her though she has no numbness or tingling. Her son thinks it might be related to her blood pressure medications because whenever she is taking all of appropriately she seems to be weaker. When she presented to the hospital she had PT evaluation and she was noted to walk 115 feet with standby assist however the son maintained that this was because she had not taken her blood pressure medications therefore she was observed overnight and there were some adjustments to her blood pressure medications most notably her clonidine was decreased to 0.2 mg p.o. 3 times daily and her hydralazine was decreased to 50 mg p.o. 3 times daily. On the day of discharge she ambulated 120 feet with standby assist. Unfortunately the son still requested that she be placed at a custodial however she does not meet criteria and more importantly she is refusing to go to a custodial at this time. She is alert and oriented x 3 and I explained to the son that therefore she can make what ever decision she wants in regard to her own health. I discussed with her the plan for discharge she expressed understanding the risk benefits going home and want to go home today. She states that she had come initially to the hospital just to make sure nothing was broken but she never wanted to go to the custodial in the first place. Of note infectious workup was negative, UA was normal and chest x-ray was unremarkable. Viral panel was also normal. 2. 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 Her home medications were continued where appropriate Physical Exam Narrative General: Alert, Oriented x3, Cooperative, No apparent distress HEENT: Atraumatic, PERRLA, EOMI, Normocephalic Oral: Moist Mucosa Neck: Supple, No JVD Lungs: Diminished, Normal air movement, No rhonchi, No wheeze, No rales Cardiovascular: Regular rate, Regular Rhythm, Normal S1, Normal S2, No murmurs Abdomen: Soft, Non Tender, Non-Distended, No Hepato-splenomegaly Extremities: No edema, Capillary Refill Less than 3 Seconds Skin: No rashes, No breakdown Musculoskeletal: No Tenderness to Palpation of Joints or Extremities Neurological: No focal neurological deficits, Motor Exam 5/5 strength throughout, Sensory exam intact to light touch and pain Psych/Mental Status: Normal Affect, Appropriate Weight / BMI Weight Weight: 125 lb Body Mass Index (BMI) 22.8 (more content not included)... [facility] 01-17-2024 Evaluation note Diagnosis Onset Date Resolution Generalized weakness resolved Dece mber 2023 11:18am Atrial fibrillation acute 2024 2:58pm History of transcatheter aortic valve replacement (TAVR) July 09, 2022 acute February 15, 2024 2:58pm Hx of CABG July 09, 2022 acute February 15, 2024 2:58pm Hyperlipidemia acute February 2:58pm Renal artery stenosis acute February 15, 2024 2:58pm HTN (hypertension) chronic 2024 2:58pm [facility] Work Phone: [phone]) 629-834903-07-2024 Hospital Discharge instructions Patient Education 04/14/2023 13:17:30 Moderate Conscious Sedation, Adult, Care After Moderate Conscious Sedation, Adult, Care After These instructions provide you with information about caring for yourself after your procedure. Your health care provider may also give you more specific instructions. Your treatment has been plannedaccording to current medical practices, but problems sometimes occur. Call your health care provider if you have any problems or questions after your procedure. What can I expect after the procedure? After your procedure, it is common: To feel sleepy for several hours. To feel clumsy and have poor balance for several hours. To have poor judgment for several hours. To vomit if you eat too soon. Follow these instructions at home: For at least 24 hours after the procedure: Do not: ?Participate in activities where you could fall or become injured. ?Drive. ?Use heavy machinery. ?Drink alcohol. ?Take sleeping pills or medicines that cause drowsiness. ?Make important decisions or sign legal documents. ?Take care of children on your own. Rest. Eating and drinking Follow the diet recommended by your health care provider. If you vomit: ?Drink water, juice, or soup when you can drink without vomiting. ?Make sure you have little or no nausea before eating solid foods. General instructions Have a responsible adult stay with you until you are awake and alert. Take bjaa-[id number] and prescription medicines only as told by your health care provider. If you smoke, do not smoke without supervision. Keep all follow-up visits as told by your health care provider. This is important. Contact a health care provider if: You keep feeling nauseous or you keep vomiting. You feel light-headed. You develop a rash. You have a fever. Get help right away if: You have trouble breathing. This information is not intended to replace advice given to you by your health care provider. Make sure you discuss any questions you have with your health care provider. Document Released: 11/14/2013 Document Revised: 01/06/2018 Document Reviewed: 05/15/2016 [employer] Patient Education 2020 [employer] 04/14/2023 13:12:21 3- Cardioversion (11/2017) (CUSTOM) CARDIOVERSION Discharge instructions ACTIVITY/SAFETY Please refrain from the following activities for 24 hours: Do not drive a car or operate heavy equipment. Do not consume alcohol for 24 hours. Do not return to work for 24 hours. Postpone signing any important papers or making important decisions. COMFORT Call your primary doctor if you have any redness, tenderness, warmth, discharge or swelling at yourIV site. Your chest or back may get red and/or develop a burning sensation. Apply fragrance-free Aloe Vera lotion. Take Tylenol as needed for pain. DIET When you return home, resume your regular diet unless otherwise directed. Some of the sedatives, anesthetic medications you received today may make you nauseated. If vomiting persists, call your doctor. Restart your usual medications unless otherwise instructed by your doctor. If you have any questions, please call your doctor at the number listed on your follow up instructions. Document Released: 01/24/2006 Document Revised: 01/10/2013 Document Reviewed: 01/25/2014 ExitCare Patient Information 2015 [facility]. This information is not intended to replace advicegiven to you by your health care provider. Make sure you discuss any questions you have with your health care provider. Follow Up Care 03/30/2023 12:26:54 With:MIKE KEARNEY MD Address: [address] [place] [address] [address] [place] [phone]- [phone] When:05/27/2023 10:30:00 [facility] 03-07-2024 Summary of episode note Discharge Instructions Thank you for allowing [facility] to assist you with your healthcare needs. The following is importantdischarge information regarding your hospital visit. Your Care Team CHELITA GAMEZ What to do next Scheduled Follow-Up Appointments Appointment Type When Where Contact InformationACC POC Established Patient 04/21/2023 10:00 AM EDT [facility] [phone] [facility] Follow Up 05/27/2023 10:30 AM EDT [facility] Follow Up Appointments Follow Up with MIKE KEARNEY MD When 05/27/2023 10:30 AM EDT Where: [address] [place] [address] [address] [place] [address]- [phone] Allergies Mayonnaise (Facial swelling, Difficulty breathing, Anaphylaxis) codeine (Dizziness/Vertigo) ibuprofen (Itching) naproxen (Hives) Medications Please ask your primary doctor or pharmacist before taking any other medication not listed, including over the counter drugs, herbal medications, vitamins and or supplements as they may interact [facility] medications. What How Much When Instructions Last Dose Changed carvedilol (carvedilol 12.5 mg oral tablet) 1 tab(s) by mouth Two (2) times a day Pickup at [facility] Pharmacy Information [facility]: [address] [place], [place] [id number] [phone] What How Much When Comments Stop Taking acetaminophen (Tylenol Extra Strength 500 mg oral tablet) 2 tab(s) by mouth Every 8 hours as needed for as needed for pain Stop Taking amiodarone (amiodarone 200 mg oral tablet) 1 tab(s) by mouth Once a day Stop Taking amLODIPine (Norvasc 10 mg oral tablet) 1 tab(s) by mouth Once a day Stop Taking aspirin (aspirin 81 mg oral delayed release tablet) 1 tab(s) by mouth Every day Stop Taking atorvastatin (atorvastatin 40 mg oral tablet) 1 tab(s) by mouth Once a day Stop Taking calcium-vitamin D (calcium-vitamin D 600 mg-5 mcg (200 intl units) oral capsule) 1 cap by mouth Two (2) times a day Duration: 90 Days Stop Taking carBAMazepine (carBAMazepine 200 mg oral tablet) 2 tab(s) by mouth Two (2) times a day Duration: 90 Days Stop Taking cloNIDine (cloNIDine 0.3 mg oral tablet) 1 tab(s) by mouth Three (3) times a day Duration: 90 Days Stop Taking hydrALAZINE (hydrALAZINE 100 mg oral tablet) 1 tab(s) by mouth Three (3) times a day Stop Taking isosorbide mononitrate (isosorbide mononitrate 60 mg oral tablet, extended release) 1 tab(s) by mouth Once a day (in the morning) Stop Taking multivitamin with minerals (Green Source Multivitamin & Minerals oral tablet) 1 tab(s) by mouth Every day Stop Taking polyethylene glycol 3350 (MiraLax oral powder for reconstitution) 17 gram(s) by mouth Once a day as needed for Constipation Stop Taking valsartan (valsartan 160 mg oral tablet) 1 tab(s) by mouth Two (2) times a day Duration: 30 Days Stop Taking warfarin (warfarin 3 mg oral tablet) See instructions Take 1&1/ 2 tabs (4.5 mg) on Tuesday, Tuesday and Tuesday. Take 1 tab (3mg) all other days or as directed. Please take this list to your next doctor s visit. Bring all medications you take, including over the counter medications, herbals and other supplements with you to your doctor s visit. Patients and families are reminded to discard old lists and to update any records with all medication providers or retail pharmacies. Education Materials Moderate Conscious Sedation, Adult, Care After These instructions provide you with information about caring for yourself after your procedure. Your health care provider may also give you more specific instructions. Your treatment has been plannedaccording to current medical practices, but problems sometimes occur. Call your health care provider if you have any problems or questions after your procedure. What can I expect after the procedure? After your procedure, it is common: To feel sleepy for several hours. To feel clumsy and have poor balance for several hours. To have poor judgment for several hours. To vomit if you eat too soon. Follow these instructions at home: For at least 24 hours after the procedure: Do not: ? Participate in activities where you could fall or become injured. ? Drive. ? Use heavy machinery. ? Drink alcohol. ? Take sleeping pills or medicines that cause drowsiness. ? Make important decisions or sign legal documents. ? Take care of children on your own. Rest. Eating and drinking Follow the diet recommended by your health care provider. If you vomit: ? Drink water, juice, or soup when you can drink without vomiting. ? Make sure you have little or no nausea before eating solid foods. General instructions Have a responsible adult stay with you until you are awake and alert. Take gqmk-bhn-iacwyyz and prescription medicines only as told by your health care provider. If you smoke, do not smoke without supervision. Keep all follow-up visits as told by your health care provider. This is important. Contact a health care provider if: You keep feeling nauseous or you keep vomiting. You feel light-headed. You develop a rash. You have a fever. Get help right away if: You have trouble breathing. This information is not intended to replace advice given to you by your health care provider. Make sure you discuss any questions you have with your health care provider. Document Released: 11/14/2013 Document Revised: 01/06/2018 Document Reviewed: 05/15/2016 [employer] Patient Education 2020 [employer] CARDIOVERSION Discharge instructions ACTIVITY/SAFETY Please refrain from the following activities for 24 hours: Do not drive a car or operate heavy equipment. Do not consume alcohol for 24 hours. Do not return to work for 24 hours. Postpone signing any important papers or making important decisions. COMFORT Call your primary doctor if you have any redness, tenderness, warmth, discharge or swelling at yourIV site. Your chest or back may get red and/or develop a burning sensation. Apply fragrance-free Aloe Vera lotion. Take Tylenol as needed for pain. DIET When you return home, resume your regular diet unless otherwise directed. Some of the sedatives, anesthetic medications you received today may make you nauseated. If vomiting persists, call your doctor. Restart your usual medications unless otherwise instructed by your doctor. If you have any questions, please call your doctor at the number listed on your follow up instructions. Document Released: 01/24/2006 Document Revised: 01/10/2013 Document Reviewed: 01/25/2014 ExitCare Patient Information 2015 [employer]. This information is not intended to replace advicegiven to you by your health care provider. Make sure you discuss any questions you have with your health care provider. Additional Information VACCINATE! IT SAVES LIVES! Members of the community who have not yet received the COVID-19 vaccine and would like to receive it can visit one of [facility] vaccine clinics. There are many vaccine clinic locations within the [facility]. For locations and available times, please visit https://gettheshot.coronavirus.[place].gov/. It is important to note that some COVID mobile vaccine clinics are held outdoors and may be canceled in rainy or stormy conditions. To learn more about pediatric vaccinations (ages 5-11), we invite you to visit the [facility] webpage. https://www.[email or web address].org/pages/3723-Qwcno-Mzskvujgtkp-Xpdivcdfyi-Fcrvd-Hnh stions.htmlTo learn more about the COVID-19 vaccine, we invite you to visit the CDC website for a list of frequently asked questions.https://www.cdc.gov/coronavirus/2019-ncov/vaccines/faq.html [employer] Patient Portal Access Instructions: Stay connected with your healthcare team and access your personal medical information anytime with the [facility] Patient Portal. Please follow the directions below to create your [employer] account: 1.Access the email account you provided upon registration to the hospital/physician office.2.Look for an invitation email from [facility].3.Open the email and access the invitation link: AcceptInvitation to [facility].4.Fill in the required peacock to create your account. To access your account, visit [email or web address]. Click the blue button labeled Access Patient Portal and then log in with the username and password that you created in the steps above. You will be able to view your test results, lab results, a summary of your visits, upcoming appointments and more. There is also a convenient messaging option where you can send secure messages to your p rovider. In addition, you will have the ability to download any documents or summaries to your computer and/or send the information securely to a physician. Remember that your healthcare information is confidential, so carefully consider who you will allowto register on the [facility] Patient Portal for access to your information. You can also access the [facility] Patient Portal on the [facility] esthela. Simply click on Patient Portal and then log into your account. If you would like to receive a full copy of your medical records, please contact the [facility] Medical Records Department by calling [phone], Tuesday through Tuesday between 8 a.m. and 4:30 p.m. HOW TO SAFELY DISPOSE OF PRESCRIPTION MEDICATIONS Please use one of the following methods to safely dispose of your unused medications. 1.Use a drug disposal kit: the drug disposal pouch allows you to safely discard your old and unuseddrugs. Ask your nurse to give you one when you are discharged.2.Visit a local take-back location: Many local pharmacies and police departments have programs that collect old and unwanted prescriptiondrugs. Call your local pharmacy or go to http://bit.ly/2V4Kl5v to find one close to you.3.Make use of household items: Use cat litter or old coffee grounds to dispose medications if other options arenot available. Mix your drugs with these household products, seal them in an airtight container andthrow it into the garbage. Call [facility]: [phone] to be sure your drugs can be disposed of in this way. Some medicines may require a different approach.4.Never flush your medications down the toilet. IF YOU HAVE BEEN PRESCRIBED AN OPIOID FOR PAIN If you have been prescribed an opioid (such as hydrocodone, oxycodone or morphine), it is critical to understand the possible side effects and risks of opioid pain medications. Even when taken as directed, opioids can have several side effects including: Tolerance, meaning you might need to take more of a medication for the same pain relief. Nausea, vomiting and/or constipation. Sleepiness, dizziness, dry mouth, confusion, depression or itching. Physical dependence, meaning you have withdrawal symptoms when a medication is stopped, can develop within a few days. KNOW YOUR RESPONSIBILITIES It is important to know exactly how much and how often to take the opioid pain medications you are prescribed. Never take opioids in higher amounts or more often than prescribed. Do not combine opioids with alcohol or other drugs that cause drowsiness, such as benzodiazepines, also known as benzos, including diazepam and alprazolam, muscle relaxants or sleep aids. Never sell or share prescription opioids. This is illegal. Store opioids in a secure place and out of reach of others (including children, family, friends and visitors). The last page of this document has been signed and retained as a CHART COPY. Signatures Patient Education Materials Moderate Conscious Sedation, Adult, Care After 3- Cardioversion (11/2017) (CUSTOM) Medication Leaflets My discharge plan and instructions have been reviewed and explained to me and IVERONICA ACELIA D understand my current condition and have read and understand these discharge instructions. I have received a written copy of the plan/instructions. If I have questions, I am aware that I should contact my d octor. Patient/Polysomnograph Tech Signature: Date/Time: Relationship to Patient: Witness Name/Signature: Date/Time: [id number] Anesthesiology Consult note Patient: MARK MARTIN Age: 73 years Sex: Female : 1950 Associated Diagnoses: None Author: NAINA JERNIGAN MD Postoperative Information Post Operative Info: Post op day: Post Anesthesia Care Unit. Patient location: OR Holding. Assessment Postanesthesia assessment Vitals: Vital signs from flowsheet : Vital Signs 04/14/2023 13:49 EST Peripheral Pulse Rate 45 bpm Respiratory Rate 16 br/min Systolic Blood Pressure Non-Invasive 120 mmHg Diastolic Blood Pressure Non-Invasive 80 mmHg 04/14/2023 13:42 EST Heart Rate Monitored 60 bpm Respiratory Rate 16 br/min Systolic Blood Pressure Non-Invasive 115 mmHg Diastolic Blood Pressure Non-Invasive 76 mmHg 04/14/2023 13:36 EST Temperature Temporal Artery 37.0 DegC Heart Rate Monitored 42 bpm LOW Respiratory Rate 16 br/min Systolic Blood Pressure Non-Invasive 114 mmHg Diastolic Blood Pressure Non-Invasive 66 mmHg 04/14/2023 13:35 EST Heart Rate Monitored 44 bpm bpm Respiratory Rate - Anes 0 br/min br/min 04/14/2023 13:33 EST Systolic Blood Pressure Non-Invasive 124 mmHg mmHg Diastolic Blood Pressure Non-Invasive 74 mmHg mmHg 04/14/2023 13:31 EST Systolic Blood Pressure Non-Invasive 106 mmHg mmHg Diastolic Blood Pressure Non-Invasive 61 mmHg mmHg 04/14/2023 13:30 EST Heart Rate Monitored 42 bpm bpm Respiratory Rate - Anes 0 br/min br/min 04/14/2023 13:27 EST Systolic Blood Pressure Non-Invasive 161 mmHg mmHg Diastolic Blood Pressure Non-Invasive 91 mmHg mmHg 04/14/2023 13:25 EST Heart Rate Monitored 88 bpm bpm Respiratory Rate - Anes 27 br/min br/min Systolic Blood Pressure Non-Invasive 150 mmHg mmHg Diastolic Blood Pressure Non-Invasive 103 mmHg mmHg 04/14/2023 13:20 EST Heart Rate Monitored 101 bpm bpm Respiratory Rate - Anes 0 br/min br/min 04/14/2023 12:44 EST Temperature Oral 36.6 DegC Peripheral Pulse Rate 88 bpm Respiratory Rate 16 br/min Systolic Blood Pressure Non-Invasive 126 mmHg Diastolic Blood Pressure Non-Invasive 92 mmHg HI , Oxygen Therapy : Oxygen Therapy & Oxygenation Information 04/14/2023 13:49 EST Oxygen Therapy Room air Oxygen Saturation 97 % 04/14/2023 13:42 EST Oxygen Therapy Room air Oxygen Saturation 95 % 04/14/2023 13:36 EST Oxygen Therapy Room air Oxygen Saturation 97 % 04/14/2023 13:35 EST Oxygen Saturation 98 % % 04/14/2023 13:30 EST Oxygen Saturation 97 % % 04/14/2023 13:25 EST Oxygen Saturation 96 % % 04/14/2023 13:20 EST Oxygen Saturation 99 % % 04/14/2023 12:44 EST Oxygen Therapy Room air Oxygen Saturation 96 % . Mental status: at preoperative baseline. Respiratory function: respirations are non-labored, Stable. Respiratory support: none. CV function: Stable. Cardiovascular support: none. Pain: Satisfactory. Nausea status: Satisfactory. Postoperative hydration status: within normal limits. Notes: Patient is sufficiently recovered from anesthesia to participate in the evaluation. No follow-up care needed. No complications post-anesthesia.. Digitally Signed by NAINA JERNIGAN MD on 04/14/2023 01:51 PM [id number]iology Consult note Patient: MARK MARTIN Age: 73 years Sex: Female : 1950 Associated Diagnoses: None Author: NAINA JERNIGAN MD Preoperative Information Greater than 8 hours Anesthesia history Patient's history: negative. Family's history: negative. Review of Systems Ear/Nose/Mouth/Throat: See Problem List. Respiratory: See Problem List. Cardiovascular: See Problem List. Gastrointestinal: See Problem List. Genitourinary: See Problem List. Endocrine: See Problem List. Musculoskeletal: See Problem List. Integumentary: See Problem List. Neurologic: See Problem List. See problem list and procedure results for specifics. Health Status Allergies: Allergic Reactions (Selected) Severe Mayonnaise- Facial swelling, anaphylaxis and difficulty breathing. Moderate Ibuprofen- Itching. Naproxen- Hives. Nonallergic Reactions (Selected) Moderate Codeine- Dizziness/vertigo., Allergies (4) ActiveReaction MayonnaiseFacial swelling codeineDizziness/Vertigo ibuprofenItching naproxenHives Current medications: (Selected) Inpatient Medications Ordered Sodium Chloride 0.9% intravenous solution 1,000 mL: 20 mL/hr, Intravenous Prescriptions Prescribed Norvasc 10 mg oral tablet: 10 mg, 1 tab(s), Oral, qDay, 90 tab(s), 3 Refill(s) amiodarone 200 mg oral tablet: 200 mg, 1 tab(s), Oral, qDay, 90 tab(s), 3 Refill(s) atorvastatin 40 mg oral tablet: 40 mg, 1 tab(s), Oral, qDay, 90 tab(s), 4 Refill(s) calcium-vitamin D 600 mg-5 mcg (200 intl units) oral capsule: 1 cap(s), Oral, BID, for 90 day(s), 180 cap(s), 3 Refill(s) carBAMazepine 200 mg oral tablet: 400 mg, 2 tab(s), Oral, BID, for 90 day(s), 360 tab(s), 3 Refill(s) carvedilol 25 mg oral tablet: 25 mg, 1 tab(s), Oral, BID, 60 tab(s), 0 Refill(s) cloNIDine 0.3 mg oral tablet: 0.3 mg, 1 tab(s), Oral, TID, for 90 day(s), 270 tab(s), 3 Refill(s) hydrALAZINE 100 mg oral tablet: 100 mg, 1 tab(s), Oral, TID, 270 tab(s), 3 Refill(s) isosorbide mononitrate 60 mg oral tablet, extended release: 60 mg, 1 tab(s), Oral, qAM, 90 tab(s), 3 Refill(s) valsartan 160 mg oral tablet: 160 mg, 1 tab(s), Oral, BID, for 30 day(s), 60 tab(s), 6 Refill(s) warfarin 3 mg oral tablet: See Instructions, Take 1&1/2 tabs (4.5 mg) on Tuesday, Tuesday and Tuesday. Take 1 tab (3mg) all other days or as directed., 110 tab(s), 1 Refill(s) Documented Medications Documented Green Source Multivitamin & Minerals oral tablet: 1 tab(s), Oral, Daily, 0 Refill(s) MiraLax oral powder for reconstitution: 17 gram(s), Oral, qDay, PRN: Constipation, 0 Refill(s) Tylenol Extra Strength 500 mg oral tablet: 1,000 mg, 2 tab(s), Oral, q8h, PRN: as needed for pain, 24 tab(s), 0 Refill(s) aspirin 81 mg oral delayed release tablet: 81 mg, 1 tab(s), Oral, Daily, 0 Refill(s), Medications (1) Active Scheduled: (0) Continuous: (1) NS (0.9% nacl) 1,000 mL 1,000 mL, Intravenous, 20 mL/hr PRN: (0) Problem list: Medical COPD EXACERBATION / SNOMED CT 557910192 / Confirmed NSTEMI (non-ST elevated myocardial infarction) / SNOMED CT 9483898250 / Confirmed Anemia / SNOMED CT 164827785 / Confirmed Postoperative anemia / SNOMED CT 156753095 / Confirmed Warfarin anticoagulation / SNOMED CT 33390412 / Confirmed Aortic valve stenosis / SNOMED CT 520776272 / Confirmed Afib / SNOMED CT 73096388 / Confirmed Postoperative atrial fibrillation / SNOMED CT 78720920 / Confirmed Bradycardia / SNOMED CT 40128834 / Confirmed CVA (cerebrovascular accident) / SNOMED CT 840530192 / Confirmed Coronary artery disease / SNOMED CT 27936539 / Confirmed CAD (coronary artery disease) s/p CABG x3, EF 55-60%, 07/09/2022 / SNOMED CT 76527129 / Confirmed DYSLIPIDEMIA / SNOMED CT 4699860875 / Confirmed SOB (shortness of breath) / SNOMED CT 709183719 / Confirmed COPD with chronic bronchitis / SNOMED CT 446058766 / Confirmed Epilepsy / SNOMED CT 937888531 / Confirmed Elevated glucose / SNOMED CT 6376404521 / Confirmed PERSONAL HISTORY OF OTHER DISEASES OF THE NERVOUS SYSTEM AND SENSE ORGANS / SNOMED CT 232950395 / Confirmed History of epilepsy / SNOMED CT 507825407 / Confirmed HTN (hypertension) / SNOMED CT 8705577057 / Confirmed Resistant hypertension / SNOMED CT 6436126639 / Confirmed Mitral valve prolapse / SNOMED CT 3865229024 / Confirmed Moderate aortic insufficiency / SNOMED CT 4771973482 / Confirmed Pleural effusion, left / SNOMED CT 05096066 / Confirmed STENOSIS OF ONE OF TWO RENAL ARTERIES / SNOMED CT 634078137 / Confirmed Stenosis of right renal artery / SNOMED CT 259266587 / Confirmed RESISTANT HYPERTENSION / SNOMED CT 464052285116393 / Confirmed Rheumatic heart disease / SNOMED CT 66684479 / Confirmed Encounter for surgical aftercare following surgery of circulatory system / SNOMED CT 261142917 / Confirmed Current tobacco use / SNOMED CT 763442769 / Confirmed Type II diabetes mellitus / SNOMED CT 233086886 / Confirmed Vasovagal near syncope / SNOMED CT 650644457 / Confirmed Resolved: History of stroke / SNOMED CT [id number] Canceled: COPD exacerbation / SNOMED CT 7139734830 Canceled: Benign hypertension / SNOMED CT 10103512 Canceled: Bradycardia / SNOMED CT 81200470 Canceled: BRADYCARDIA / SNOMED CT 56526406 Canceled: Epilepsy / SNOMED CT 977921710 Canceled: Hypercholesterolemia / SNOMED CT 80467718 Canceled: DMII (diabetes mellitus, type 2) / SNOMED CT 488402047 Canceled: Hypertension / ICD-9-CM 401.9, Active Problems (32) Afib Anemia Aortic valve stenosis Bradycardia CAD (coronary artery disease) s/p CABG x3, EF 55-60%, 07/09/2022 COPD EXACERBATION COPD with chronic bronchitis Coronary artery disease Current tobacco use CVA (cerebrovascular accident) DYSLIPIDEMIA Elevated glucose Encounter for surgical aftercare following surgery of circulatory system Epilepsy History of epilepsy HTN (hypertension) Mitral valve prolapse Moderate aortic insufficiency NSTEMI (non-ST elevated myocardial infarction) PERSONAL HISTORY OF OTHER DISEASES OF THE NERVOUS SYSTEM AND SENSE ORGANS Pleural effusion, left Postoperative anemia Postoperative atrial fibrillation RESISTANT HYPERTENSION Resistant hypertension Rheumatic heart disease SOB (shortness of breath) STENOSIS OF ONE OF TWO RENAL ARTERIES Stenosis of right renal artery Type II diabetes mellitus Vasovagal near syncope Warfarin anticoagulation Histories Past Medical History: Active NSTEMI (non-ST elevated myocardial infarction) (7635038747) SOB (shortness of breath) (799908483) Mitral valve prolapse (6433338644) Rheumatic heart disease (24411717) Current tobacco use (203406255) Resolved History of stroke ([id number]): Resolved. Family History: Cancer Brother (Stephen Vilchis, ) Comments: 08/03/2019 10:00 MARIANN SOOD MD lung Diabetes mellitus Mother (Jaquelin Vilchis, ) Heart disease Mother (Jaquelin Vilchis, ) Father (Connor Vilchis, ) Brother (Stephen Vilchis, ) Diabetes mellitus type 2 Brother (Stephen Vilchis, ) Heart attack Father (Connor Vilchis, ) Hyperchloremia Son (Chito Abbasi) Seizure Mother (Jaquelin Vilchis, ) HTN - Hypertension Mother (Jaquelin Vilchis, ) Father (Connor Vilchis, ) Son (Chito Abbasi) Coronary arteriosclerosis Brother (Stephen Vilchis, ) Procedure history: Echocardiogram ([id number]) on 02/12/2023 at 73 Years. Comments: 02/14/2023 14:49 Tatum Guerrier MA (ABR-OE) Severe concentric left ventricular hypertrophy. The left ventricular ejection fraction is 65 %. The left atrium is severely enlarged. The right atrium is mildly enlarged. Mild diffuse mitral valve thickening. Bubble contrast study is negative for PFO/ASD. Aortic valve not well-visualized in short axis. Possibly bioprosthetic valve. Limited 2D echocardiogram with no Doppler. Echocardiogram ([id number]) on 01/17/2023 at 72 Years. Comments: 02/14/2023 14:54 Tatum Guerrier MA (ABR-OE) The estimated ejection fraction is 65 %. No evidence for diastolic dysfunction. The left atrium is mildly enlarged. Echocardiogram ([id number]) on 09/23/2022 at 72 Years. Comments: 12/10/2022 15:34 Tatum Moon MA (ABR-OE) 1. Left ventricle: The cavity size is normal. Wall thickness is moderately to severely increased. Systolic function is normal. The estimated ejection fraction is 55-60%. Wall motion is normal; there are no regional wall motionabnormalities. Unable to assess diastolic function. 2. Ventricular septum: Septal motion is dyssynergic. 3. Aortic valve: A bioprosthetic valve is present and functioning normally. 4. Mitral valve: Leaflet mobility is restricted. Diastolic leaflet doming is present. The findings are consistent with moderate stenosis. There is mild regurgitation. 5. Left atrium: The atrium is moderately dilated. 6. Right ventricle: Systolic function is reduced. The RV systolic pressure by Doppler is 33 mm Hg. 7. Right atrium: The estimated right atrial pressure is 3 mm Hg. Thoracentesis ([id number]) on 07/13/2022 at 72 Years. Comments: 09/10/2022 14:12 Tatum Moon MA (ABR-OE) LEFT FLUID REMOVED: 900 cc FLUID COLOR: Serosanguineous Transesophageal echocardiogram ([id number]) on 07/09/2022 at 72 Years. Comments: 08/12/2022 14:42 Tatum Moon MA (ABR-OE) 1. Left ventricle: LVEF 55%, severe LVH, no RWMAs. 2. Aortic valve: Extremely calcified, possibly rheumatic, Moderate AI and mild , functionally bicuspid, 23 mm. 3. Systemic arteries: Grade IV disease, extremely tortuous. 4. Mitral valve: Trace to Mild central MR. 5. Left atrium: Mildly dilated, No DANIEL thrombus. 6. Right ventricle: Reasonable function. 7. Pulmonic valve: Trivial PI. 8. Tricuspid valve: Trace to mild central TR. 9. Right atrium: Mildly dilated. 10. Atrial septum: Intact, no PFO. 11. Pericardium, extracardiac: Thickened and calcified, no effusion. 12. Postoperative: S/p CABG x 3, LVEF 55-60%, hyperdynamic, severe LVH, no RWMAs, S/p AVR - 23 mm, BP, wellseated, no PVL, MG -12-14, on EPI/NE CABG - Coronary artery bypass graft ([id number]) on 07/09/2022 at 72 Years. Comments: 09/10/2022 14:14 Tatum Moon MA (ABR-OE) 1. Median sternotomy and coronary artery bypass graft x3 by means of left internal mammary artery to second diagonal branch, reverse saphenous vein graft from aorta to lateral branch of the circumflex, reverse saphenous veingraft from aorta to PD branch of RCA. 2. Aortic valve replacement with #23 Magna Ease pericardial tissue valve by Castro. 3. Endoscopic vein harvesting, right leg. Transesophageal echocardiogram ([id number]) on 07/09/2022 at 72 Years. Comments: 09/10/2022 14:15 Tatum Moon MA (ABR-OE) 1. Left ventricle: LVEF 55%, severe LVH, no RWMAs. 2. Aortic valve: Extremely calcified, possibly rheumatic, Moderate AI and mild , functionally bicuspid, 23 mm. 3. Systemic arteries: Grade IV disease, extremely tortuous. 4. Mitral valve: Trace to Mild central MR. 5. Left atrium: Mildly dilated, No DANIEL thrombus. 6. Right ventricle: Reasonable function. 7. Pulmonic valve: Trivial PI. 8. Tricuspid valve: Trace to mild central TR. 9. Right atrium: Mildly dilated. 10. Atrial septum: Intact, no PFO. 11. Pericardium, extracardiac: Thickened and calcified, no effusion. 12. Postoperative: S/p CABG x 3, LVEF 55-60%, hyperdynamic, severe LVH, no RWMAs, S/p AVR - 23 mm, BP, wellseated, no PVL, MG -12-14, on EPI/NE. PFT - Pulmonary function tests ([id number]) on 07/06/2022 at 72 Years. Comments: 09/10/2022 14:18 Tatum Moon MA (ABR-OE) Normal Coronary artery bypass grafts x 3 ([id number]) on 07/04/2022 at 72 Years. Comments: 07/15/2022 18:35 Genesis Gar RN with aortic valve replacment Arterial angioplasty ([id number]) on 07/02/2022 at 72 Years. Comments: 09/10/2022 14:21 Tatum Moon MA (ABR-OE) Balloon angioplasty of the right renal artery stent with a 6 mm Akhil. Closure with Mynx Cardiac catheterization ([id number]) on 07/01/2022 at 72 Years. Comments: 08/12/2022 14:41 Tatum Moon MA (ABR-OE) SUMMARY: 1. Left ventricle: Systolic function is normal. The estimated ejection fraction is 55-60%. 2. LAD: Mid-vessel lesion: There is an 80% stenosis. 3. Left circumflex: Distal vessel lesion: There is a 70% stenosis. 4. Right coronary: Distal vessel lesion: There is a 90% stenosis, at the bifurcation, also involving the the right posterior descending. 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 Echocardiogram ([id number]) on 06/29/2022 at 72 Years. Comments: 08/12/2022 14:43 Tatum Moon MA (ABR-OE) 1. Left ventricle: The cavity size is normal. Wall thickness is severely increased. Systolic function is normal. The estimated ejection fraction is 60-65%. Unable to assess diastolic function. 2. Aortic valve: There is mild stenosis. There is moderate, 2+ regurgitation. The mean systolic gradient is 15 mm Hg. The peak systolic gradient is 35 mm Hg. The valve area by VTI is 2.2 cm . 3. Mitral valve: The annulus is mildly to moderately calcified. The leaflets are moderately thickened and mildly calcified. Thickening and calcification, consistent with rheumatic disease. The findings are consistent with mild to moderate stenosis. The mean diastolic gradient is 9 mm Hg. The valve area by pressure half-time is 2.4 cm . 4. Left atrium: The atrium is moderately dilated. 5. Right atrium: The estimated right atrial pressure is 3 mm Hg Cardiovascular stress testing ([id number]) on 06/29/2022 at 72 Years. Comments: 08/12/2022 14:56 Tatum Moon MA (ABR-OE) Suggestive moderate severity anterior/anterior lateral wall ischemia No evidence myocardial infarction, RAMP artifact calculated ejection fraction 60% with normal wall motion and thickening Imaging of carotid arteries by duplex scan with spectrum analysis ([id number]) on 06/28/2022 at 72 Years. Comments: 09/10/2022 14:24 Tatum Moon MA (ABR-OE) 1. The right vertebral artery is patent with normal antegrade flow. 2. The left vertebral artery is patent with normal antegrade flow. 3. Mild 1-39% stenosis of the right internal carotid artery. 4. Moderate 40-59% stenosis of the left internal carotid artery. Cardiovascular stress testing ([id number]) on 06/27/2022 at 72 Years. Comments: 08/12/2022 14:57 Tatum Moon MA (ABR-OE) ECG portion of the Lexiscan nuclear stress test is negative for inducible ischemia with decreased specificity due to LVH at baseline. Echocardiogram ([id number]) on 04/28/2022 at 72 Years. Comments: 08/12/2022 14:58 Tatum Moon MA (ABR-OE) 1. Left ventricle: The cavity size is normal. Wall thickness is moderately to severely increased. Systolic function is normal. The estimated ejection fraction is 55-60%. 2. Aortic valve: There is moderate regurgitation. 3. Mitral valve: Leaflet mobility is restricted. Diastolic leaflet doming is present. All consistent with rheumatic disease. The findings are consistent with mild stenosis. There is mild regurgitation. 4. Left atrium: The atrium is severely dilated. 5. Right ventricle: The RV systolic pressure by Doppler is 21 mm Hg. 6. Right atrium: The estimated right atrial pressure is 3 mm Hg. Total knee arthroplasty ([id number]) on 02/21/2020 at 70 Years. Comments: 02/21/2020 18:19 NICHOLAS - Suzanne Torrez RN LEFT PFT - Pulmonary function tests ([id number]) on 01/25/2020 at 69 Years. Echocardiogram ([id number]) on 02/15/2017 at 67 Years. Comments: 09/20/2019 9:56 Toshia Stallings MA (ABR-OE) Echocardiogram 02/15/2017 - 1. Left ventricle: cavity size is normal. Asymmetric hypertrophy of the septum with sigmoid septum. No LVOT gradient. Systolic function is normal. EF is 55-60%. Wall motion is normal; No regional wall motion abnormalities. Grade II diastolic dysfunction with elevated LAP. 2. Aortic valve: There is mild stenosis. There is mild to moderate regurgitation. 3. Mitral valve: There is mild regurgitation. 4. Left atrium: The atrium is markedly dilated. 5. Right ventricle: The RV systolic pressure by Doppler is 26 mm Hg. 6. Right atrium: The estimated right atrial pressure is8 mm Hg. 07/23/2004 - Normal LVSF EF 60%. LVH. Rheumatic Heart disease with mild MS and MR, moderately severe aortic regurg without stenosis. Normal estimated pulmonary artery pressure of 24 Holter monitor ([id number]) on 01/24/2017 at 66 Years. Comments: 09/20/2019 9:57 Toshia Stallings MA (ABR-OE) Holter/Event Monitoring [01/25/2017]: 1. Sinus rhythm 38 to 108, average 54 beats per minute. 2. Very rare ventricular ectopic complexes in isolation. 3. Rare to occasional supraventricular ectopic complexes, most in isolation with 7 couplets and 1 triplet. 4. No long pauses or signs of high-grade AV block. 5. Symptoms of dyspnea and fast heart beating were not associated with any ectopy, arrhythmia, or ST segment change EKG ([id number]) on 01/14/2017 at 66 Years. Comments: 09/20/2019 10:00 JOET Toshia Gordillo MA (ABR-OE) Atrial bradycardia HR 42 BPM Cardiovascular stress testing ([id number]) on 01/29/2010 at 59 Years. Comments: 09/20/2019 9:58 JOET Toshia Gordillo MA (ABR-OE) Cardiovascular Stress Test 01/29/2010 - Technically adequate (%PMHR > 85%) ETT. Peak exercise, ECG with no obvious ECG evidence of [place] at the HR achieved. LVEF 66% - 01/27/2010- 1.) Rest and stressSPECT Cardioloite nuclear imaging demonstrate at rest a small area of diminished tracer uptake in the distal anteroseptal segment which appears to improve and / or normalize status post stress thus appearing compatible with resting soft tissue attenuation / artifact. 2.)There are no myocardial perfusion changes considered diagnostic for stress induced myocardial ischemia or previous myocardial injury / infarction. 3.)The gated Cardiolite study reports an LVEF of 66%. Structure of medial meniscus of right knee joint ([id number]) on 02/20/2008 at 58 Years. Arthroscopy of knee- left ([id number]) in 1995 at 46 Years. Comments: 07/15/2022 18:33 EDT - Genesis Moyer RN left Hemorrhoidectomy ([id number]) in 1984 at 35 Years. Hysterectomy ([id number]). History of hernia repair (6105818573). Stapedectomy (459689532). Entire tonsils and adenoids ([id number]). Vascular flow ([id number]). Comments: 09/20/2019 9:59 EDT Toshia Gordillo MA (ABR-OE) Vascular Testing Vl Renal Artery Us/Doppler - 1. The left renal artery is consistent with less thana 60% degree of stenosis. 2. The right renal artery is consistent with greater than a 60% degree ofstenosis. 3. The right renal vein is patent. 4. The left renal vein is patent. 5. No evidence of abdominal aortic aneurysm Social History Social & Psychosocial Habits Alcohol 4Risk Assessment: Denies Alcohol Use 03/25/2023 Use: Never Employment/School 03/25/2023 Status: Retired Previous employment/school: [employer] Substance Abuse 03/25/2023isk Assessment: Denies Substance Abuse 03/25/2023 Use: Never Tobacco 03/25/2023 Tobacco Use: 4 or less cigarettes(less, Former smoker, quit more Type: Cigarettes Number of years: 20 Home/Environment 03/25/2023 Domestic Concerns Denies Living situation: Home with assistance Primary Form Tamper Operator: self lives with spouse, she has 2 sons from her previous marriage, Lives In Single level home Current Home Treatments None Special Services and Community Resources None Financial concerns: Yes Spouse Name PAT Marital Status of Patient if Patient Independent Adult: 03/25/2023 Living situation: Home/Independent Safe place to go: Yes Lives In 3-4 steps to get in door has rails on both side, Mobile home Current Home Treatments Blood Pressure monitoring, cane, son getting ramp put in Nutrition/Health 03/25/2023 Type of diet: Regular Appetite Good Eating Difficulties None Enteral Feedings No TPN Feedings No Skin Breakdown/Decubitus Ulcers No Caffeine intake amount: coffee 4 cups, half caff 03/25/2023 Type of diet: Low sodium, Regular Appetite Fair Eating Difficulties None Enteral Feedings No TPN Feedings No Skin Breakdown/Decubitus Ulcers No . Physical Examination No qualifying data available General: Alert and oriented. Airway: Normal temporomandibular joint mobility, Normal mouth, Normal throat, Normal neck range of motion, Trachea midline. Mallampati classification: II (soft palate, fauces, uvula visible). Head: Normocephalic. Dentition Evaluation: Intact, Own teeth, Denies loose/chipped teeth. Neck: Supple. Respiratory: Lungs are clear to auscultation, Respirations are non-labored. Cardiovascular: Normal rate, No murmur. Heart Sounds: Normal. Neurologic: Alert, Oriented. Review / Management Results review: No qualifying data available . Assessment and Plan [place] [employer]esthesi[employer] (ASA) physical status classification: Class III. Anesthetic Preoperative Plan Premedication: intravenous. Anesthetic technique: General. Induction: intravenously. Maintenance airway: Mask. Special techniques. Special Monitoring. Postoperative pain management: Per surgeon. Risks discussed: nausea, vomiting, headache, sore throat, dental injury, hypotension, allergic reaction, serious complications, Heart Problems, Lung Problems, Stroke, Intraoperative Recall, . Informed consent: signed by patient. After completion of focused history and physical examination, anesthetic options with their inherent risks and benefits were discussed. Common minor and rare but serious or potentially life-threatening complications were included in this discussion(Specific items discussed: nausea, sore throat, dysphagia, heart problems, lung problems, strokes, heart attacks, intraoperative recall and ). All of the patient's questions were answered. The patient verbalizes understanding of the agreed upon anesthetic plan and agrees to proceed. Digitally Signed by NAINA JERNIGAN MD on 04/14/2023 06:18 AM [id number] Discharge instructions Patient Education 04/11/2023 12:06:01 Head Injury (Adult) Head Injury (Adult) You have a head injury. It does not appear serious at this time. But symptoms of a more serious problem, such as a mild brain injury (concussion) or bruising or bleeding in the brain, may appear later. For this reason, you or someone caring for you will need to watch for the symptoms listed below. Once you re home, also be sure to follow any care instructions you re given. Home care Watch for the following symptoms Seek emergency medical care if you have any of these symptoms over the next hours to days: Headache Nausea or vomiting Dizziness Sensitivity to light or noise Unusual sleepiness or grogginess Trouble falling asleep Personality changes Vision changes Memory loss Confusion Trouble walking or clumsiness Loss of consciousness (even for a short time) Inability to be awakened Stiff neck Weakness or numbness in any part of the body Seizures General care If you were prescribed medicines for pain, use them as directed. Note: Don t take other medicines for pain without talking to your provider first. To help reduce swelling and pain, apply a cold source to the injured area for up to 20 minutes at atime. Do this as often as directed. Use a cold pack or bag of ice wrapped in a thin towel. Never apply a cold source directly to the skin. If you have cuts or scrapes as a result of your head injury, care for them as directed. For the next 24 hours (or longer, if instructed): oDon t drink alcohol or use sedatives or other medicines that make you sleepy. oDon t drive or operate machinery. oDon t do anything strenuous, such as heavy lifting or straining. oLimit tasks that require concentration. This includes reading, using a smartphone or computer, watching TV, and playing video games. oDon t return to sports or other activities that could result in another head injury. Follow-up care Follow up with your healthcare provider, or as directed. If imaging tests were done, they will be reviewed by a doctor. You will be told the results and any new findings that may affect your care. When to seek medical advice Call your healthcare provider right away if any of these occur: Pain doesn t get better or worsens New or increased swelling or bruising Fever of 100.4 F (38 C) or higher, or as directed by your provider Increased redness, warmth, drainage, or bleeding from the injured area Fluid drainage or bleeding from the nose or ears Any depression or bony abnormality in the injured area Persistent confusion or lethargy Bruising behind the ears or bruising around the eyes [id number] [employer]. [address] [place] [address]. All rights reserved. This information is not intended as a substitute for professional medical care. Always follow yourhealthcare professional's instructions. 04/11/2023 12:05:54 Fall, Mechanical Mechanical Fall You have had a fall today. It appears that the cause is what is called mechanical. That means that you slipped, tripped, or lost your balance. If your fall had been because of fainting or a seizure, you might need other tests. It is normal to feel sore and tight in your muscles and back the next day, and not just the musclesyou injured at first. Remember, all the parts of your body are connected, so while initially one area hurts, the next day another may hurt. Also, when you injure yourself, it causes inflammation, which then causes the muscles to tighten up and hurt more. After the initial worsening, it should gradually improve over the next few days. Do report more severe pain. Even without a definite head injury, you can still get a concussion from your head suddenly jerkingforward, backward, or sideways when falling. Concussions and even bleeding can still happen, especially if you have had a recent injury or take blood thinner medicine. It is not unusual to have a mild headache and feel tired and even nauseous or dizzy. Home care Rest today and go back to your normal activities when you are feeling back to normal. If you were injured during the fall, follow the advice from your healthcare provider regarding careof your injury. At first, do not try to stretch out the sore spots. If there is a strain, stretching may make it worse. Massage may help relax the muscles without stretching them. You can use an ice pack or cold compress on and off to the sore spots 10 to 20 minutes at a time, as often as you feel comfortable. This may help reduce the inflammation, swelling and pain. If you have any scrapes or abrasions, they usually heal within 10 days. It is important to keep theabrasions clean while they initially start to heal. However, an infection may happen even with proper care, so watch for early signs of infection (such as warmth, redness, or swelling). Medicines Talk to your healthcare provider before taking new medicines, especially if you have other medical problems or are taking other medicines. If you need anything for pain, you can take acetaminophen or ibuprofen, unless you were given a different pain medicine to use. Talk with your healthcare provider before using these medicines if you have chronic liver or kidney disease, or ever had a stomach ulcer or gastrointestinal bleeding, or are taking blood thinner medicines. Be careful if you are given prescription pain medicines, narcotics, or medicine for muscle spasm. They can make you sleepy and dizzy, and can affect your coordination, reflexes, and judgment. Do not drive or do work where you can injure yourself when taking them. Fall prevention Fix, remove, or replace anything that caused your fall. Make your home safe by keeping walkways clear of objects you may trip over. Use nonslip pads under rugs. Don't use small area rugs or throw rugs. Don't walk in poorly lit areas. Don't stand on chairs or wobbly ladders. Use caution when reaching overhead or looking upward. This position can cause a loss of balance. Be sure your shoes fit properly, have nonslip bottoms and are in good condition. Be cautious when going up and down curbs, and walking on uneven sidewalks. If your balance is poor, consider using a cane or walker. Stay as active as you can. Balance, flexibility, strength, and endurance all come from exercise. They all play a role in preventing falls. If you have pets, know where they are before you stand up or walk so you don't trip over them. Limit alcohol intake. Alcohol can cause balance problems and increase the risk of falls. Use night lights. Have your eyes tested to be sure you are seeing well, even if you already wear glasses. Follow-up Follow up with your healthcare provider, or as advised. If X-rays or CT scans were done, you will be notified if there is a change in the reading, especially if it affects treatment. Call 911 Call 911 if any of these happen: Trouble breathing Confused or difficulty arousing Fainting or loss of consciousness Rapid or very slow heart rate Seizure Difficulty with speech or vision, weakness of an arm or leg Difficulty walking or talking, loss of balance, numbness or weakness in one side of your body, or facial droop When to seek medical advice Call your healthcare provider right away if any of these happen: Repeated mechanical falls, or unexplained falls Dizziness Severe headache Blood in vomit, stools (black or red color) [id number] [employer] [place] [address]. All rights reserved. This information is not intended as a substitute for professional medical care. Always follow yourhealthcare professional's instructions. Follow Up Care 04/11/2023 10:53:28 With:CHELITA GAMEZ Address: [address] [place] [address] Physicians [place], [place] [phone] [phone] Business (1) When:2-4 days Comments:Follow-up as needed.Ice/cold compresses to injured area.Use Tylenol for pain as needed.Limit activity as tolerated.Return to the ED if symptoms worsen. [facility] 03-04-2024 Note Discharge Instructions Thank you for allowing [facility] to assist you with your healthcare needs. The following is importantdischarge information regarding your hospital visit. Diagnosis from Today's Visit Fall What to Do Next Instructions from Your Care Team No qualifying data available. Post Acute Orders No qualifying data available. You Need to Schedule the Following Appointments Follow Up with CHELITA GAMEZ When Within 2-4 days Why: Follow-up as needed. Ice/cold compresses to injured area. Use Tylenol for pain as needed. Limit activity as tolerated. Return to the ED if symptoms worsen. [facility] [place] [address] [phone] Business (1) Allergies Mayonnaise (Facial swelling, Difficulty breathing, Anaphylaxis) codeine (Dizziness/Vertigo) ibuprofen (Itching) naproxen (Hives) Medications Please ask your primary doctor or pharmacist before taking any other medication not listed, including over the counter drugs, herbal medications, vitamins and or supplements as they may interact withyour home medications. What How Much When Instructions Last Dose Unchanged acetaminophen (Tylenol Extra Strength 500 mg oral tablet) 2 tab(s) by mouth Every 8 hours as needed for as needed for pain Unchanged amiodarone (amiodarone 200 mg oral tablet) 1 tab(s) by mouth Once a day Unchanged amLODIPine (Norvasc 10 mg oral tablet) 1 tab(s) by mouth Once a day Unchanged aspirin (aspirin 81 mg oral delayed release tablet) 1 tab(s) by mouth Every day Unchanged atorvastatin (atorvastatin 40 mg oral tablet) 1 tab(s) by mouth Once a day Unchanged calcium-vitamin D (calcium-vitamin D 600 mg-5 mcg (200 intl units) oral capsule) 1 cap by mouth Two (2) times a day Duration: 90 Days Unchanged carBAMazepine (carBAMazepine 200 mg oral tablet) 2 tab(s) by mouth Two (2) times a day Duration: 90 Days Unchanged carvedilol (carvedilol 25 mg oral tablet) 1 tab(s) by mouth Two (2) times a day Unchanged cloNIDine (cloNIDine 0.3 mg oral tablet) 1 tab(s) by mouth Three (3) times a day Duration: 90 Days Unchanged hydrALAZINE (hydrALAZINE 100 mg oral tablet) 1 tab(s) by mouth Three (3) times a day Unchanged isosorbide mononitrate (isosorbide mononitrate 60 mg oral tablet, extended release) 1 tab(s) by mouth Once a day (in the morning) Unchanged multivitamin with minerals (Green Source Multivitamin & Minerals oral tablet) 1 tab(s) by mouth Every day Unchanged polyethylene glycol 3350 (MiraLax oral powder for reconstitution) 17 gram(s) by mouth Once a day as needed for Constipation Unchanged valsartan (valsartan 160 mg oral tablet) 1 tab(s) by mouth Two (2) times a day Duration: 30 Days Unchanged warfarin (warfarin 3 mg oral tablet) See instructions Take 1&1/ 2 tabs (4.5 mg) on Tuesday, Tuesday and Tuesday. Take 1 tab (3mg) all other days or as directed. Please take this list to your next doctor s visit. Bring all medications you take, including over the counter medications, herbals and other supplements with you to your doctor s visit. Patients and families are reminded to discard old lists and to update any records with all medication providers or retail pharmacies. Education Materials Head Injury (Adult) You have a head injury. It does not appear serious at this time. But symptoms of a more serious problem, such as a mild brain injury (concussion) or bruising or bleeding in the brain, may appear later. For this reason, you or someone caring for you will need to watch for the symptoms listed below. Once you re home, also be sure to follow any care instructions you re given. Home care Watch for the following symptoms Seek emergency medical care if you have any of these symptoms over the next hours to days: Headache Nausea or vomiting Dizziness Sensitivity to light or noise Unusual sleepiness or grogginess Trouble falling asleep Personality changes Vision changes Memory loss Confusion Trouble walking or clumsiness Loss of consciousness (even for a short time) Inability to be awakened Stiff neck Weakness or numbness in any part of the body Seizures General care If you were prescribed medicines for pain, use them as directed. Note: Don t take other medicines for pain without talking to your provider first. To help reduce swelling and pain, apply a cold source to the injured area for up to 20 minutes at atime. Do this as often as directed. Use a cold pack or bag of ice wrapped in a thin towel. Never apply a cold source directly to the skin. If you have cuts or scrapes as a result of your head injury, care for them as directed. For the next 24 hours (or longer, if instructed): oDon t drink alcohol or use sedatives or other medicines that make you sleepy. oDon t drive or operate machinery. oDon t do anything strenuous, such as heavy lifting or straining. oLimit tasks that require concentration. This includes reading, using a smartphone or computer, watching TV, and playing video games. oDon t return to sports or other activities that could result in another head injury. Follow-up care Follow up with your healthcare provider, or as directed. If imaging tests were done, they will be reviewed by a doctor. You will be told the results and any new findings that may affect your care. When to seek medical advice Call your healthcare provider right away if any of these occur: Pain doesn t get better or worsens New or increased swelling or bruising Fever of 100.4 F (38 C) or higher, or as directed by your provider Increased redness, warmth, drainage, or bleeding from the injured area Fluid drainage or bleeding from the nose or ears Any depression or bony abnormality in the injured area Persistent confusion or lethargy Bruising behind the ears or bruising around the eyes [phone] [employer]. [address] [place] [address]. All rights reserved. This information is not intended as a substitute for professional medical care. Always follow yourhealthcare professional's instructions. Mechanical Fall You have had a fall today. It appears that the cause is what is called mechanical. That means that you slipped, tripped, or lost your balance. If your fall had been because of fainting or a seizure, you might need other tests. It is normal to feel sore and tight in your muscles and back the next day, and not just the musclesyou injured at first. Remember, all the parts of your body are connected, so while initially one area hurts, the next day another may hurt. Also, when you injure yourself, it causes inflammation, which then causes the muscles to tighten up and hurt more. After the initial worsening, it should gradually improve over the next few days. Do report more severe pain. Even without a definite head injury, you can still get a concussion from your head suddenly jerkingforward, backward, or sideways when falling. Concussions and even bleeding can still happen, especially if you have had a recent injury or take blood thinner medicine. It is not unusual to have a mild headache and feel tired and even nauseous or dizzy. Home care Rest today and go back to your normal activities when you are feeling back to normal. If you were injured during the fall, follow the advice from your healthcare provider regarding careof your injury. At first, do not try to stretch out the sore spots. If there is a strain, stretching may make it worse. Massage may help relax the muscles without stretching them. You can use an ice pack or cold compress on and off to the sore spots 10 to 20 minutes at a time, as often as you feel comfortable. This may help reduce the inflammation, swelling and pain. If you have any scrapes or abrasions, they usually heal within 10 days. It is important to keep theabrasions clean while they initially start to heal. However, an infection may happen even with proper care, so watch for early signs of infection (such as warmth, redness, or swelling). Medicines Talk to your healthcare provider before taking new medicines, especially if you have other medical problems or are taking other medicines. If you need anything for pain, you can take acetaminophen or ibuprofen, unless you were given a different pain medicine to use. Talk with your healthcare provider before using these medicines if you have chronic liver or kidney disease, or ever had a stomach ulcer or gastrointestinal bleeding, or are taking blood thinner medicines. Be careful if you are given prescription pain medicines, narcotics, or medicine for muscle spasm. They can make you sleepy and dizzy, and can affect your coordination, reflexes, and judgment. Do not drive or do work where you can injure yourself when taking them. Fall prevention Fix, remove, or replace anything that caused your fall. Make your home safe by keeping walkways clear of objects you may trip over. Use nonslip pads under rugs. Don't use small area rugs or throw rugs. Don't walk in poorly lit areas. Don't stand on chairs or wobbly ladders. Use caution when reaching overhead or looking upward. This position can cause a loss of balance. Be sure your shoes fit properly, have nonslip bottoms and are in good condition. Be cautious when going up and down curbs, and walking on uneven sidewalks. If your balance is poor, consider using a cane or walker. Stay as active as you can. Balance, flexibility, strength, and endurance all come from exercise. They all play a role in preventing falls. If you have pets, know where they are before you stand up or walk so you don't trip over them. Limit alcohol intake. Alcohol can cause balance problems and increase the risk of falls. Use night lights. Have your eyes tested to be sure you are seeing well, even if you already wear glasses. Follow-up Follow up with your healthcare provider, or as advised. If X-rays or CT scans were done, you will be notified if there is a change in the reading, especially if it affects treatment. Call 911 Call 911 if any of these happen: Trouble breathing Confused or difficulty arousing Fainting or loss of consciousness Rapid or very slow heart rate Seizure Difficulty with speech or vision, weakness of an arm or leg Difficulty walking or talking, loss of balance, numbness or weakness in one side of your body, or facial droop When to seek medical advice Call your healthcare provider right away if any of these happen: Repeated mechanical falls, or unexplained falls Dizziness Severe headache Blood in vomit, stools (black or red color) [phone] [employer]. [address] [place] [address]. All rights reserved. This information is not intended as a substitute for professional medical care. Always follow yourhealthcare professional's instructions. Additional Information VACCINATE! IT SAVES LIVES! Members of the community who have not yet received the COVID-19 vaccine and would like to receive it can visit one of [facility] vaccine clinics. There are many vaccine clinic locations within the [facility]. For locations and available times, please visit www.gettheshot.coronavirus.[place].gov/. It is important to note that some COVID mobile vaccine clinics are held outdoors and may be canceled in rainy or stormy conditions. To learn more about pediatric vaccinations (ages 5-11), we invite you to visit the [facility] webpage. [email or web address].[email or web address].org/pages/3159-Edgbc-[email or web address]-Myv stions.htmlTo learn more about the COVID-19 vaccine, we invite you to visit the CDC website for a list of frequently asked questions. https://www.cdc.gov/coronavirus/2019-ncov/vaccines/faq.html [facility] Patient Portal Access Instructions: Stay connected with your healthcare team and access your personal medical information anytime with the [facility] Patient Portal. If you would like a full copy of your medical records please contact the [facility] Medical Records Department Tuesday through Tuesday between 8a.m. and 4:30p.m. Please follow the directions below to access the portal: 1.Access the email account you provided upon registration to the hospital.2.Look for an invitation email from [facility].3.Open the email and access the invitation link: Accept Invitation to [facility]4.Fill in the required peacock to create your account. Sign into [email or web address] with your username and password that you created in the above steps to stay up to date. You can then view a summary of results, a summary of your visits, and the ability to download your summaries to your computer or send the information securely to a physician. Remember that your healthcare information is confidential, so carefully consider who you will allow to register on the [facility] Patient Portal for access to your information. You can also access the [facility] Patient Portal on the [employer] esthela. Simply click on Health Records under [employer] and then click on the [facility] logo. HOW TO SAFELY DISPOSE OF PRESCRIPTION MEDICATIONS Please use one of the following methods to safely dispose of your unused medications. 1.Use a drug disposal kit: the drug disposal pouch allows you to safely discard your old and unuseddrugs. Ask your nurse to give you one when you are discharged.2.Visit a local take-back location: Many local pharmacies and police departments have programs that collect old and unwanted prescriptiondrugs. Call your local pharmacy or go to http://ArmedZilla.SLIC games/1J6Al1p to find one close to you.3.Make use of household items: Use cat litter or old coffee grounds to dispose medications if other options arenot available. Mix your drugs with these household products, seal them in an airtight container andthrow it into the garbage. Call [facility]: [phone] to be sure your drugs can be disposed of in this way. Some medicines may require a different approach.4.Never flush your medications down the toilet. IF YOU HAVE BEEN PRESCRIBED AN OPIOIDS FOR PAIN If you have been prescribed an opioid (such as hydrocodone, oxycodone or morphine), it is critical to understand the possible side effects and risks of opioid pain medications. Even when taken as directed, opioids can have several side effects including: Tolerance, meaning you might need to take more of a medication for the same pain relief. Nausea, vomiting and/or constipation. Sleepiness, dizziness, dry mouth, confusion, depression or itching. Physical dependence, meaning you have withdrawal symptoms when a medication is stopped ? this can develop within a few days. KNOW YOUR RESPONSIBILITIES It is important to know exactly how much and how often to take the opioid pain medications you are prescribed. Never take opioids in higher amounts or more often than prescribed. Do not combine opioids with alcohol or other drugs that cause drowsiness, such as benzodiazepines, also known as benzos,including diazepam and alprazolam, muscle relaxants or sleep aids. Never sell or share prescriptionopioids. This is illegal. Store opioids in a secure place and out of reach of others (including children, family, friends and visitors). The last page(s) of this document has been signed and retained as a CHART COPY Signatures Patient Education Materials Head Injury (Adult) Fall, Mechanical Medication Leaflets My discharge plan and instructions have been reviewed and explained to me and I,MARK MARTIN understand my current condition and have read and understand these discharge instructions. I have received a written copy of the plan/instructions. If I have questions, I am aware that I should contact my d octor. Patient/Polysomnograph Tech Signature: Date/Time: Relationship to Patient: Witness Name/Signature: Date/Time: [facility]03-04-2024 Note ORIGINAL HISTORY: Fall COMPARISON: 27 Jun 2022 TECHNIQUE: Routine non-contrast head CT with sagittal and coronal reconstructions This exam was performed according to our departmental dose optimization program, and includes the following measures where applicable: automated exposure control, adjustment of the mAs and/or kVp according to patient size and/or exam, and an iterative reconstruction algorithm. FINDINGS: The ventricles and sulci are mildly enlarged. There are no abnormal intra or extra-axial fluid collections. There is moderate irregular decreased attenuation in the cerebral white matter. Oliveira-white matter differentiation is maintained. The calvaria and the bones of the base of the skull are intact. IMPRESSION: Volume loss and small vessel ischemic disease. No significant interval change. Interpreted by: Marlon Hill MD Preliminary Report By: Marlon Hill MD Electronically signed By Marlon Hill MD Dictated Date: 04/11/2023 11:36:43 AM Prelim Date: 04/11/2023 11:38:02 AM Sign Date: 04/11/2023 11:38:02 AM Ordering Provider: [facility]12-14-2023 Discharge summary Author [facility] January 20, 2023 10:53am Note Date/Time January 20, 2023 10:53am [facility] Medical Records Department [address] [place] [address] Instructions for Home/Discharge Instructions 01/20/23 1053 MR#: [id number] Acct: [id number] Name: MARK MARTIN Rep #:[id number] : 1950 72 From: Rosalva Ortez MD PCP: Dr. Mariann Trent MD Status:ADM IN Discharge Instructions Diet Discharge Diet: Low fat / Low cholesterol Activity Discharge Activity: Return to Normal Activity Weight Bearing Status: Weight bearing as tolerated Dressing / Incision Call your doctor if you observe: Shortness of breath, Dizziness, Swelling in theankles, Increased palpitations (irregular heartbeat) and Uncontrolled pain Follow Up Care Test Results: Test results from this visit will be discussed in further detail at your follow- up appointment, if applicable. Discharge Plan Admission Admit Date/Time: 01/15/23 22:52 Primary Reason for Your Visit: debililty due to recurrent falls Attending Provider: Rosalva Ortez Primary Care Provider: Mariann Trent Consulting Providers: Eladio Almanza; Axel Javier Instructions Patient Instructions: ED Mechanical Fall Discharge Orders/Prescriptions Prescriptions: New hydralazine 25 mg tablet 25 mg PO TID Qty: 90 2RF Continued amiodarone 200 mg tablet 200 mg PO BID amlodipine 10 mg tablet 10 mg PO DAILY atorvastatin 40 mg tablet 40 mg PO DAILY carbamazepine 200 mg tablet 400 mg PO BID clonidine HCl 0.3 mg tablet 0.3 mg PO TID Patient Comments: TOOK 2X TODAY hydralazine 100 mg tablet 100 mg PO TID Patient Comments: HAS TAKEN 2 DOSES TODAY labetalol 100 mg tablet 100 mg PO BID ofloxacin 0.3 % drops 1 drp ophthalmic (eye) DAILY Patient Comments: TO LEFT EYE valsartan 160 mg tablet 160 mg PO BID warfarin 2.5 mg tablet 2.5 mg PO DAILY Patient Comments: DOES NOT KNOW DOSE. Discontinued hydralazine 10 mg tablet 10 mg PO TID Referrals / Follow Up: Mariann Trent MD [Primary Care Provider] - Within 1 Week Disposition Disposition (needs filled in before D/C Order can be placed): Home Health Service 01/20/23 105<Electronically signed by Rosalva Ortez MD>Rosalva Ortez MD CC: Dr. Eladio Almanza MD; Dr. Mariann Trent MD; Dr. Axel Javier, DO ~ Signed [facility] Work Phone: 1(571) 631-388212-14-2023 Discharge summary Author [facility] January 20, 2023 3:43pm Note Date/Time January 20, 2023 10:[address] [place] [address] [facility] System Medical Records Department [address] [place] [address] Discharge Summary 01/20/231052 MR#: [id number] Acct: [id number] Name: MARK MARTIN Rep #:[id number] : 1950 72 From: Rosalva Ortez MD PCP: Dr. Mariann Trent MD Status:ADM IN [facility] Prov[facility] Date of Admission: 01/15/23 Date of Discharge: 01/20/23 Primary Care Physician: Dr. Mariann Trent MD Reason For Visit: RECURRENT FALLS Diagnosis Discharge Diagnosis (1) Hypertension: Status: Chronic Code(s): I10 - Essential (primary) hypertension (2) Multiple falls: Status: Acute Code(s): R29.6 - Repeated falls (3) Contusion of face: Status: Acute Code(s): S00.83XA - Contusion of other part of head, initial encounter Plan #Debility and weakness due to mechanical fall * PT/OT on board. Fall precautions #Paroxysmal afib: on coumadin. on amiodarone. INR is pending today. If she continues having recurrent falls, so may have to reconsider being on coumadin. #Hypertension: * came in with hypertensive urgency. THis has resolved. BP this morning is 113/79. * renal duplex USG showed less than 60% stenosis of bilateral arteries. * BP still remains elevated. On amlodipine, clonidine, hydralazine and labetalol. HCTZ added on * 2D echo showed EF of 65% with no evidence of diastolic dysfunction and mildly enlarged left atrium. # Seizure disorder: on carbamazepine. DVT prophylaxis: on coumadin. Disposition; awaiting placement. Medications at Discharge Home Medications amiodarone 200 mg tablet 200 mg PO BID heart 01/15/23 amlodipine 10 mg tablet 10 mg PO DAILY 01/15/23 atorvastatin 40 mg tablet 40 mg PO DAILY 01/15/23 carbamazepine 200 mg tablet 400 mg PO BID 01/15/23 clonidine HCl 0.3 mg tablet 0.3 mg PO TID 01/15/23 hydralazine 100 mg tablet 100 mg PO TID BLOOD PRESSURE 01/15/23 labetalol 100 mg tablet 100 mg PO BID 01/15/23 ofloxacin 0.3 % eye drops 1 drp ophthalmic (eye) DAILY 01/15/23 valsartan 160 mg tablet 160 mg PO BID 01/15/23 warfarin 2.5 mg tablet 2.5 mg PO DAILY BLOOD THINNER 01/15/23 hydrochlorothiazide 25 mg tablet 25 mg PO DAILY #30 tabs 01/20/23 Hospital Course Operations None Procedures None Summary of Care Provided Minutes Spent on Discharge: 55 Hospital Course: Patient is a 72 y/o female with a PMH as outlined who was admitted via the ED on01/15/2023 with a complaint of mechanical fall. She had been falling several times over the last few days prior to admission. She denied any dizziness, lightheadedness, palpitations, nausea, vomiting or any other symptoms. Review ofsystems was otherwise negative. She usually ambulated with a walker. BP was markedly elevated. EKG showed atrial flutter. Labs werrre unremarkable. CT brain showed no chronic involutional changes. CT cervical spine showed no fracture. CTof the facial bones showed acute right sphenoid sinusitis. She was admitted and managed for debility due to mechanical fall. BP was controlled, which also resulted in improvement of her symptoms. PT/OT was consulted. She was skilled asneeding placement. Her BP meds were adjusted and hydrochlorthiazide added on. Her BP control improved and she felt better. Insurance denied approval for SNF; patient and family were agreeable to her going home with home therapy. She remained stable and was discharged home on 01/20/2023 with home health. She is to follow-up with her primary care doctor within 1 to 2 weeks.She had hydrochlorthiazide 25mg daily added on to her medications to help with her BP control Patient seen and examined prior to discharge. She had no complaints and had an uneventful night. Review of systems otherwise negative. Labs and vitals reviewed. Home medication reviewed and reconciled. Physical Exam Const alert, oriented x3 and no apparent distress General Appearance: cooperative, comfortable, well kempt and well developed Orientation / Consciousness: awake, oriented to person, oriented to place and oriented to time HEENT normocephalic, head/scalp atraumatic, moist oral mucous membranes and oropharynxnormal Eyes PERRL and EOMs intact bilaterally Neck no lymphadenopathy, supple, no JVD, thyroid normal and no carotid bruits General: trachea midline Lymph Lymphatic: no lymphadenopathy noted and no lymphedema noted Resp normal respiratory effort, normal air movement, no retractions, no use of accessory muscles and clear to auscultation bilaterally Auscultation: Negative for rales, rhonchi or wheezes Cardio regular rate, regular rhythm, S1 normal heart sound, S2 normal heart sound, no murmurs, no rub and no gallops GI normal to inspection, nondistended, normoactive bowel sounds, soft to palpation,non-tender and non-distended Extremity normal to inspection, full ROM, normal capillary refill, no clubbing, cyanosis or edema and no calf tenderness General Extremity: no tenderness to palpation of joints or extremities Skin no rashes or lesions noted General Skin Exam: no breakdown Neuro oriented x3, CN's II-XII intact bilaterally, moves all extremities, no focal motor deficits and no sensory deficits noted Sensorium / Orientation: awake and alert Speech: speech normal Motor Exam: strength 5/5 throughout and general weakness Psych thought process normal, cooperative and affect normal Appearance: appropriate Weight / BMI Weight Weight: 133 lb 13.129 oz Body Mass Index (BMI) 24.5 ABG / Lab / Microbiology Data 01/16/23 04:56 01/16/23 04:56 Laboratory: Laboratory Results - last 24 hr 01/19/23 10:40: PT 21.3 H, INR 1.8 01/20/23 08:50: PT 17.1 H, INR 1.4 D/C Instructions Discharge Diet: Low fat / Low cholesterol Discharge Activity: Return to Normal Activity Weight Bearing Status: Weight bearing as tolerated Call your doctor if you observe: Shortness of breath, Dizziness, Swelling in theankles, Increased palpitations (irregular heartbeat) and Uncontrolled pain Meaningful Use Info Meaningful Use Diagnoses (Choose all that apply): None applicable Discharge Plan Admission Admit Date/Time: 01/15/23 22:52 Primary Reason for Your Visit: debililty due to recurrent falls Attending Provider: Rosalva Ortez Primary Care Provider: Mariann Trent Consulting Providers: Eladio Almanza; Axel Javier Instructions Patient Instructions: ED Mechanical Fall Discharge Orders/Prescriptions Prescriptions: New hydrochlorothiazide 25 mg Tablet 25 mg PO DAILY Qty: 30 2RF Continued amiodarone 200 mg tablet 200 mg PO BID amlodipine 10 mg tablet 10 mg PO DAILY atorvastatin 40 mg tablet 40 mg PO DAILY carbamazepine 200 mg tablet 400 mg PO BID clonidine HCl 0.3 mg tablet 0.3 mg PO TID Patient Comments: TOOK 2X TODAY hydralazine 100 mg tablet 100 mg PO TID Patient Comments: HAS TAKEN 2 DOSES TODAY labetalol 100 mg tablet 100 mg PO BID ofloxacin 0.3 % drops 1 drp ophthalmic (eye) DAILY Patient Comments: TO LEFT EYE valsartan 160 mg tablet 160 mg PO BID warfarin 2.5 mg tablet 2.5 mg PO DAILY Patient Comments: DOES NOT KNOW DOSE. Discontinued hydralazine 10 mg tablet 10 mg PO TID Referrals / Follow Up: Mariann Trent MD [Primary Care Provider] - Within 1 Week Disposition Disposition (needs filled in before D/C Order can be placed): Home Health Service Charges/Coding Visit Charges Inpatient E&M: 67847 Disch Hosp >30min 01/20/23 1544 <Electronically signed by Rosalva Ortez MD> Cosigner Signature (if applicable): CC: Dr. Mariann Trent MD; Dr. Rosalva Ortez MD~ Signed [facility] Work Phone: 1(780) 198-977312-13-2023 Progress note Author [facility] January 19, 2023 4:32pm Note Date/Time January 19, 2023 9:54am [facility] Health System Medical Records Department [address] [place] [address] Progress Note 01/19/23 0953 MR#: [id number] Acct: [id number] Name: MARK MARTIN Rep #:[id number] : 1950 72 From: Rosalva Ortez MD PCP: Dr. Mariann Trent MD Status:ADM IN Location: [place] [address] Subjective Subjective Patient seen and examined. She had no active complaints and had an uneventful night. Review of systems is otherwise negative. She has remained hemodynamicallystable. Objective Data Objective Data Vital Signs: Vital Signs Temp Pulse Resp BP Pulse Ox O2 Del Method 98.2 F 73 16 113/79 100 Room Air 01/19/23 08:43 01/19/23 08:43 01/19/23 08:43 01/19/23 08:43 01/19/23 08:43 01/19/23 08:43 Oxygen Delivery Method Room Air Weight: 133 lb 13.129 oz Body Mass Index (BMI) 24.5 Intake & Output: Intake and Output for Last 24 Hours 01/17/23 01/18/23 01/19/23 23:59 23:59 23:59 Intake Total 750 / 1230 1600 / 1800 350 / 350 Output Total 350 / 350 Balance 400 / 880 1600 / 1800 350 / 350 Lab / Micro Data 01/16/23 04:56 01/16/23 04:56 Physical Exam Const alert, oriented x3 and no apparent distress General Appearance: cooperative, well kempt and well developed Orientation / Consciousness: awake, oriented to person, oriented to place and oriented to time HEENT normocephalic, head/scalp atraumatic, moist oral mucous membranes and oropharynxnormal Eyes PERRL and EOMs intact bilaterally Neck no lymphadenopathy, supple, no JVD, thyroid normal and no carotid bruits General: trachea midline Lymph Lymphatic: no lymphadenopathy noted and no lymphedema noted Resp normal respiratory effort, normal air movement, no retractions, no use of accessory muscles and clear to auscultation bilaterally Auscultation: Negative for rales, rhonchi or wheezes Cardio regular rate, regular rhythm, S1 normal heart sound, S2 normal heart sound, no murmurs, no rub and no gallops GI normal to inspection, nondistended, normoactive bowel sounds, soft to palpation,non-tender and non-distended Extremity normal to inspection, normal capillary refill, no clubbing, cyanosis or edema and no calf tenderness General Extremity: no tenderness to palpation of joints or extremities Skin no rashes or lesions noted General Skin Exam: no breakdown Neuro oriented x3, CN's II-XII intact bilaterally, moves all extremities, no focal motor deficits and no sensory deficits noted Sensorium / Orientation: awake and alert Speech: speech normal Motor Exam: strength 5/5 throughout and general weakness Psych thought process normal, cooperative and affect normal Appearance: appropriate Assessment & Plan Assessment/Plan (1) Hypertension: (2) Multiple falls: (3) Contusion of face: PLAN: Plan #Debility and weakness due to mechanical fall * PT/OT on board. Fall precautions #Paroxysmal afib: on coumadin. on amiodarone. INR is pending today. If she continues having recurrent falls, so may have to reconsider being on coumadin. #Hypertension: * came in with hypertensive urgency. THis has resolved. BP this morning is 113/79. * renal duplex USG showed less than 60% stenosis of bilateral arteries. * BP still remains elevated. On amlodipine, clonidine, hydralazine and labetalol. HCTZ added on * 2D echo showed EF of 65% with no evidence of diastolic dysfunction and mildly enlarged left atrium. # Seizure disorder: on carbamazepine. DVT prophylaxis: on coumadin. Disposition; awaiting placement. Charges/Coding Visit Charges Inpatient E&M: 04071 Subs Hosp L2 01/19/23 1632 <Electronically signed by Rosalva Ortez MD> Rosalva Ortez MD Cosigner Signature (if applicable): CC: ~ Signed [facility] Work Phone: 1(728) 705-677012-12-2023 Progress note Author Rosalva Ortez [facility] January 18, 2023 3:55pm Note Date/Time January 18, 2023 11:39am [facility] Medical Records Department [address] [place] [address] Progress Note 01/18/23 1137 MR#: [id number] Acct: [id number] Name: MARK MARTIN Rep #:[id number] : 1950 72 From: Rosalva Ortez MD PCP: Dr. Mariann Trent MD Status:ADM IN [facility] Subjective Subjective Patient seen and examined. She had no complaints. He had an uneventful night. Review of systems otherwise negative. She has remained hemodynamically stable. Objective Data Objective Data Vital Signs: Vital Signs Temp Pulse Resp BP Pulse Ox O2 Del Method 97.8 F 77 18 129/93 H 99 Room Air 01/18/23 08:41 01/18/23 08:41 01/18/23 08:41 01/18/23 08:41 01/18/23 08:41 01/18/23 08:48 Oxygen Delivery Method Room Air Weight: 133 lb 13.129 oz Body Mass Index (BMI) 24.5 Intake & Output: Intake and Output for Last 24 Hours 01/16/23 01/17/23 01/18/23 23:59 23:59 23:59 Intake Total 1100 / 1100 750 / 1230 600 / 600 Output Total 350 / 350 Balance 1100 / 1100 400 / 880 600 / 600 Lab / Micro Data 01/16/23 04:56 01/16/23 04:56 Labs: Laboratory Results - last 24 hr 01/18/23 08:17: PT 20.5 H, INR 1.7 Radiography Diagnostic Testing: Radiology Impression Echocardiogram 01/16/23 01:06 Interpretation Summary The estimated ejection fraction is 65 %. No evidence for diastolic dysfunction. The left atrium is mildly enlarged. Ordering Physician: Eladio Almanza Referring Physician: Mariann Trent Performed By: Sharlene Puente, RDCS, RVT Physical Exam Const alert, oriented x3 and no apparent distress General Appearance: cooperative, well kempt and well developed Orientation / Consciousness: awake, oriented to person, oriented to place and oriented to time HEENT normocephalic, head/scalp atraumatic, moist oral mucous membranes and oropharynxnormal Eyes PERRL and EOMs intact bilaterally Neck no lymphadenopathy, supple, no JVD, thyroid normal and no carotid bruits General: trachea midline Lymph Lymphatic: no lymphadenopathy noted and no lymphedema noted Resp normal respiratory effort, normal air movement, no retractions, no use of accessory muscles and clear to auscultation bilaterally Auscultation: Negative for rales, rhonchi or wheezes Cardio regular rate, regular rhythm, S1 normal heart sound, S2 normal heart sound, no murmurs, no rub and no gallops GI normal to inspection, nondistended, normoactive bowel sounds, soft to palpation,non-tender and non-distended Extremity normal to inspection, normal capillary refill, no clubbing, cyanosis or edema and no calf tenderness General Extremity: no tenderness to palpation of joints or extremities Skin no rashes or lesions noted General Skin Exam: no breakdown Neuro oriented x3, CN's II-XII intact bilaterally, moves all extremities, no focal motor deficits and no sensory deficits noted Sensorium / Orientation: awake and alert Speech: speech normal Motor Exam: strength 5/5 throughout and general weakness Psych thought process normal, cooperative and affect normal Appearance: appropriate Assessment & Plan Assessment/Plan (1) Hypertension: (2) Multiple falls: (3) Contusion of face: PLAN: Plan #Debility and weakness due to mechanical fall * PT/OT on board. Fall precautions #Paroxysmal afib: on coumadin. on amiodarone. INR is 1.7 today. If he continues having recurrent falls, so may have to reconsider being on coumadin. #Hypertension: * came in with hypertensive urgency. * renal duplex USG showed less than 60% stenosis of bilateral arteries. * BP still remains elevated. On amlodipine, clonidine, hydralazine and labetalol. HCTZ added on yesterday * 2D echo showed EF of 65% with no evidence of diastolic dysfunction and mildly enlarged left atrium. # Seizure disorder: on carbamazepine. DVT prophylaxis: on coumadin. Disposition; awaiting placement. Charges/Coding Visit Charges Inpatient E&M: 41577 Subs Hosp L2 01/18/23 1553 <Electronically signed by Rosalva Ortez MD> Rosalva Ortez MD Cosigner Signature (if applicable): CC: ~ Signed [facility] Work Phone: 1(575) 944-493012-11-2023 Progress note Author Rosalva [facility] January 17, 2023 4:47pm Note Date/Time January 17, 2023 12:39pm [facility] Medical Records Department [address] [place] [address] Progress Note 01/17/23 1230 MR#: [id number] Acct: [id number] Name: MARK MARTIN Rep #:[id number] : 1950 72 From: Rosalva Ortez MD PCP: Dr. Mariann Trent MD Status:ADM IN Location: [facility] VU343-8 Subjective Subjective Patient seen and examined. SHe had no active complaints. Review of systems is otherwise negative. She is awaiting placement. Objective Data Objective Data Vital Signs: Vital Signs Temp Pulse Resp BP Pulse Ox O2 Del Method 97.9 F 66 18 165/115 H 96 Room Air 01/17/23 08:00 01/17/23 08:00 01/17/23 08:00 01/17/23 08:00 01/17/23 08:00 01/17/23 08:00 Oxygen Delivery Method Room Air Weight: 133 lb 13.129 oz Body Mass Index (BMI) 24.5 Intake & Output: Intake and Output for Last 24 Hours 01/15/23 01/16/23 01/17/23 23:59 23:59 23:59 Intake Total 500 / 500 1100 / 1100 Balance 500 / 500 1100 / 1100 Lab / Micro Data 01/16/23 04:56 01/16/23 04:56 Labs: Laboratory Results - last 24 hr 01/17/23 07:23: PT 21.4 H, INR 1.8 Radiography Diagnostic Testing: Radiology Impression Renal Artery Duplex 01/16/23 01:05 Interpretation Summary Maximal aortic diameter is 2.39 x 2.32 cm diameter distally which is normal. Less than 60% stenosis bilateral renal arteries Maintained right renal length of 10.5 cm Maintained left renal length of 10.95 cm Ordering Physician: Eladio Almanza Referring Physician: Mariann Trent Performed By: Darrius Hua RVHiginio Physical Exam Const alert, oriented x3 and no apparent distress General Appearance: cooperative HEENT normocephalic, head/scalp atraumatic, moist oral mucous membranes and oropharynxnormal Eyes PERRL and EOMs intact bilaterally Neck no lymphadenopathy and supple Lymph Lymphatic: no lymphadenopathy noted and no lymphedema noted Resp normal respiratory effort, normal air movement and clear to auscultation bilaterally Cardio regular rate, regular rhythm, S1 normal heart sound, S2 normal heart sound and no murmurs GI normal to inspection, nondistended, normoactive bowel sounds, soft to palpation,non-tender and non-distended Extremity normal capillary refill, no clubbing, cyanosis or edema and no calf tenderness General Extremity: no tenderness to palpation of joints or extremities Skin General Skin Exam: no breakdown Neuro CN's II-XII intact bilaterally and no focal motor deficits Motor Exam: strength 5/5 throughout and general weakness Psych thought process normal, cooperative and affect normal Appearance: appropriate Assessment & Plan Assessment/Plan (1) Hypertension: (2) Multiple falls: (3) Contusion of face: PLAN: Plan #Debility and weakness due to mechanical fall * PT/OT on board. Fall precautions #Paroxysmal afib: on coumadin. on amiodarone. INR is 1.8. If he continues havingrecurrent falls, so may have to reconsider being on coumadin. #Hypertension: * came in with hypertensive urgency. * renal duplex USG showed less than 60% stenosis of bilateral arteries. * BP still remains elevated. On amlodipine, clonidine, hydralazine and labetalol. will add on HCTZ # Seizure disorder: on carbamazepine. DVT prophylaxis: on coumadin. Disposition; awaiting placement. Charges/Coding Visit Charges Inpatient E&M: 87685 Subs Hosp L2 01/17/23 1647 <Electronically signed by Rosalva Ortez MD> Rosalva Ortez MD Cosigner Signature (if applicable): CC: ~ Signed [facility] Work Phone: 1([phone]) 393-438012-10-2023 Progress note Author Axel Javier [facility] January 16, 2023 3:59pm Note Date/Time January 16, 2023 3:59pm [facility] Medical Records Department [address] [place] [address] Progress Note - Hospitalist 01/16/23 1552 MR#: [id number] Acct: [id number] Name: MARK MARTIN Rep #:[id number] : 1950 72 From: Axel Javier DO PCP: Dr. Mariann Trent MD Status:ADM IN [facility] Reason for Visit Reason for Visit: Diagnoses Essential (primary) hypertension (01/15/23) Subjective Subjective Patient was seen and examined today, she told this examiner she felt she could go home today but there was not a support mechanism for her at home currently, her son was contacted and he states that he will be at work most of the day tomorrow. Patient ambulated well with physical therapy today, I have decided however that social work professor should meet with the patient tomorrow and set up home health and see if she has any other needs since she has had several falls recently at home. Objective Data Objective Data Vital Signs: Vital Signs Temp Pulse Resp BP Pulse Ox O2 Del Method 97.4 F L 78 16 149/88 H 98 Room Air 01/16/23 15:00 01/16/23 15:00 01/16/23 15:00 01/16/23 15:00 01/16/23 15:00 01/16/23 15:00 Oxygen Delivery Method Room Air Weight: 60.7 kg Body Mass Index (BMI) 24.5 Intake & Output: Intake and Output for Last 24 Hours 01/14/23 01/15/23 01/16/23 23:59 23:59 23:59 Intake Total 500 / 500 600 / 600 Balance 500 / 500 600 / 600 Lab / Micro Data 01/16/23 04:56 01/16/23 04:56 Labs: Laboratory Results - last 24 hr 01/15/23 20:25: WBC 7.7, RBC 4.57, Hgb 14.6, Hct 42.2, MCV 92.3, MCH 31.9, MCHC 34.6, RDW Std Deviation 43.4, RDW Coeff of Geena 12.8, Plt Count 226, MPV 9.5, Immature Gran % (Auto) 0.600, Neut % (Auto) 75.9 H, Lymph % (Auto) 16.2 L, [place] % (Auto) 5.4, Eos % (Auto) 1.0, Baso % (Auto) 0.9, Absolute Neuts (auto) 5.9, Absolute Lymphs (auto) 1.25, Nucleated RBC % 0, PT 20.7 H, INR 1.8, APTT 32.0, Sodium 137, Potassium 3.5, Chloride 102, Carbon Dioxide 32.0, Anion Gap 3 L, BUN12, Creatinine 0.72, Estim Creat Clear Calc 39.63, Est GFR (MDRD) Af Amer 103, Est GFR (MDRD) Non-Af 85, BUN/Creatinine Ratio 16.8, Glucose 126 H, Calcium 8.8 01/15/23 21:15: Urine Color Yellow, Urine Clarity Sl. Cloudy, Urine pH 8.0, Ur Specific [place] 1.015, Urine Protein 15 H, Urine Glucose (UA) Normal, Urine Ketones Negative, Urine Occult Blood 10 H, Urine Nitrite Negative, Urine Bilirubin Negative, Urine Urobilinogen Normal, Ur Leukocyte Esterase Negative, Urine RBC 0-5 SEEN, Urine WBC 0-5 SEEN, Ur Squamous Epith Cells 0-5 SEEN, Urine Bacteria 0 SEEN, Urine Mucus 0 SEEN 01/16/23 04:56: WBC 6.5, RBC 4.42, Hgb 13.7, Hct 41.3, MCV 93.4, MCH 31.0, MCHC 33.2, RDW Std Deviation 44.7 H, RDW Coeff of Genea 13.1, Plt Count 225, MPV 10.1, Immature Gran % (Auto) 0.500, Neut % (Auto) 58.4, Lymph % (Auto) 29.8, [place] % (Auto) 9.0, Eos % (Auto) 1.1, Baso % (Auto) 1.2 H, Absolute Neuts (auto) 3.8, Absolute Lymphs (auto) 1.93, Nucleated RBC % 0, PT 22.7 H, INR 2.0, Sodium 139, Potassium 3.4 L, Chloride 105, Carbon Dioxide 29.0, Anion Gap 5, BUN 11, Creatinine 0.60, Estim Creat Clear Calc 39.63, Est GFR (MDRD) Af Amer 125, Est GFR (MDRD) Non-Af 103, BUN/Creatinine Ratio 18.2, Glucose 120 H, Calcium 8.2 L, Phosphorus 3.1, Magnesium 2.2, Total Bilirubin 0.20, Direct Bilirubin 0.08, AST 16, ALT 18, Alkaline Phosphatase 88, Total Protein 6.2 L, Albumin 3.2, Globulin 3.0, Albumin/Globulin Ratio 1.1, TSH 0.69 Radiography Diagnostic Testing: Radiology Impression Brain CT 01/15/23 20:40 IMPRESSION: Chronic involutional changes of the brain. Electronically Signed: Taj Smith MD at 21:15 EST Reading Location ID and State: [facility] , Service support , Cervical Spine CT 01/15/23 20:40 IMPRESSION: No acute fracture or subluxation. Electronically Signed: Taj Smith MD at 21:31 EST Reading Location ID and State: [place] [facility] [employer] [facility] , Service support , Facial/Sinus 01/15/23 20:40 IMPRESSION: Normal unenhanced CT of the facial bones. Acute right sphenoid sinusitis. Electronically Signed: Taj Smith MD at 21:20 EST Reading Location ID and State: [place] [facility] [employer] [facility] , Service support , Hand X-Ray 01/15/23 20:45 IMPRESSION: No acute fracture or dislocation Electronically Signed: Taj Smith MD at 21:34 EST , Physical Exam Const alert, oriented x3 and no apparent distress General Appearance: cooperative, well kempt and well developed Orientation / Consciousness: awake, oriented to person, oriented to place and oriented to time HEENT normocephalic and moist oral mucous membranes HEENT Narrative: Patient has an ecchymotic area around her right eye Eyes PERRL and EOMs intact bilaterally Neck supple, no JVD, thyroid normal and no carotid bruits General: trachea midline Resp normal respiratory effort, no retractions, no use of accessory muscles and clearto auscultation bilaterally Auscultation: Negative for rales, rhonchi or wheezes Cardio regular rate, regular rhythm, S1 normal heart sound, S2 normal heart sound, no murmurs, no rub and no gallops GI normal to inspection, nondistended, normoactive bowel sounds, soft to palpation,non-tender and non-distended Extremity no clubbing, cyanosis or edema Skin no rashes or lesions noted General Skin Exam: no breakdown Neuro oriented x3, CN's II-XII intact bilaterally, moves all extremities, no focal motor deficits and no sensory deficits noted Sensorium / Orientation: awake and alert Speech: speech normal Psych affect normal Assessment & Plan Assessment/Plan (1) Unsteady gait: PLAN: Plan 1. Generalized weakness secondary to multiple medical problems and deconditioning-PT and OT will continue to work with patient, social work professor will need to set up home health for the patient and may have to provide information for the hiring of nurses aides for the patient. #2 essential hypertension-I will review the patient's home medications #3 paroxysmal atrial fibrillation-patient currently is on warfarin, patient's INR today was 2 #4 chronic anticoagulation secondary to chronic use of warfarin for atrial fibrillation #5 increased risk of thromboembolism secondary to chronic atrial fibrillation- patient is on warfarin I do not feel the patient had hypertensive emergency Total clinical time spent by myself addressing the patient's medical issues, reviewing all of her data, and collaborating with patient's care team: 35 minutes Charges/Coding Visit Charges Inpatient E&M: 98464 Subs Hosp L2 01/16/23 1559 <Electronically signed by Axel Javier DO> Cosigner Signature (if applicable): CC: ~ Signed [facility] Work Phone: 1(177) 918-911812-10-2023 History and physical note Author Eladio Almanza [facility] January 16, 2023 1:05am Note Date/Time January 15, 2023 1 0:38pm [facility] Medical Records Department [address] [place] [address] H&P Exam - Hospitalist 01/15/232236 MR#: [id number] Acct: [id number] Name: MARK MARTIN Rep #:[id number] : 1950 72 From: Eladio Almanza MD PCP: Dr. Mariann Trent MD Status:ADM IN [facility] HPI - General General Date of Admission: 01/15/23 Date of Service: 01/15/23 Chief Complaint: Recurrent falls HPI Narrative MARK MARTIN, is a 72 F with past medical history of A-fib on warfarin, hypertension, coronary artery disease s/p recent CABG, renal artery stenosis s/pstenting, seizure disorder presented to the ED following a fall around 6 PM. She lives by herself and has been having repeated episodes of falling in the last few days. There were no preceding symptoms, does not remember having blackouts or sensation of palpitations before. No prodromal symptoms no post fall confusion. She ambulates with a cane but does have a walker. Her home medications include amiodarone, atorvastatin, carbamazepine, clonidine, hydralazine, labetalol, valsartan, warfarin 2.5 mg. Her blood pressure at the time of presentation was 195/108, pulse rate was 59 EKG was suggestive of atrialflutter. At home she continues to smoke half to 1 pack of cigarettes daily. Labs in the ED WBC 7.7, hemoglobin 14.6, platelet 226, INR 1.8, creatinine 0.7, CT brain showed chronic involutional changes no acute changes. No fracture or subluxation on cervical spine CT. CT of facial bones showed acute right sphenoid sinusitis. Interval events After control her blood pressure in the ED, she was able to ambulate better, subjectively her dizziness had improved remarkably. [facility] Medical History (Updated 01/15/23 @ 23:59 by Whitley Johnson) Afib Anemia 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 COPD (chronic obstructive pulmonary disease) Deafness in left ear Depression Diabetes GERD (gastroesophageal reflux disease) HTN (hypertension) Irregular heart beat Myocardial infarct Rheumatoid arthritis Right renal artery stenosis Seizures Stroke/cerebrovascular accident Home Medications amiodarone 200 mg tablet mg 01/15/23 [History Last Taken Unknown] amlodipine 10 mg tablet 10 mg PO DAILY 01/15/23 [History Last Taken Unknown] atorvastatin 40 mg tablet 40 mg PO DAILY 01/15/23 [History Last Taken Unknown] carbamazepine 200 mg tablet 400 mg PO BID 01/15/23 [History Last Taken Unknown] clonidine HCl 0.3 mg tablet 0.3 mg PO TID 01/15/23 [History Last Taken 01/15/23] hydralazine 100 mg tablet 100 mg PO TID 01/15/23 [History Last Taken 01/15/23] labetalol 100 mg tablet 100 mg PO BID 01/15/23 [History Last Taken Unknown] ofloxacin 0.3 % eye drops 1 drp ophthalmic (eye) DAILY 01/15/23 [History Last Taken Unknown] valsartan 160 mg tablet 160 mg PO BID 01/15/23 [History Last Taken Unknown] warfarin 2.5 mg tablet mg 01/15/23 [History Last Taken Unknown] Allergy/AdvReac Type Severity Reaction Status Date / Time ibuprofen Allergy Rash Verified 01/15/23 20:14 naproxen [From Naprosyn] Allergy Rash Verified 01/15/23 20:14 codeine AdvReac Other Verified 01/15/23 20:14 Surgical History (Updated 01/16/23 @ 00:04 by Whitley Johnson) Aortic valve replaced Hx of CABG Social History Smoking Status: Current every day smoker tobacco type: cigarettes Vital Signs Vital Signs Vital Signs: 01/15/23 20:06 01/15/23 20:25 01/15/23 22:06 Temperature 97.1 F L Temperature Source Temporal Pulse Rate 59 L 93 Respiratory Rate 18 21 H Respiratory Effort Normal Blood Pressure 195/108 H Blood Pressure Mean 137 Pulse Ox 96 97 Oxygen Delivery Method Room Air Room Air Room Air 01/15/23 22:06 Temperature Temperature Source Pulse Rate 88 Respiratory Rate 18 Respiratory Effort Blood Pressure 211/154 H Blood Pressure Mean 173 Pulse Ox 96 Oxygen Delivery Method Weight Weight: 145 lb 1.027 oz Body Mass Index (BMI) 26.5 Physical Exam Const alert and oriented x3 HEENT normocephalic Eyes PERRL Neck no lymphadenopathy Resp normal respiratory effort Cardio S1 normal heart sound, S2 normal heart sound and no murmurs GI normal to inspection, nondistended, normoactive bowel sounds Extremity normal to inspection Neuro oriented x3, CN's II-XII intact bilaterally, moves all extremities and no focal motor deficits Psych affect normal Results Medical Records Data Attestation: I reviewed the patient's medical records Lab / Micro Data 01/15/23 20:25 01/15/23 20:25 Labs: Laboratory Results - last 24 hr 01/15/23 20:25: WBC 7.7, RBC 4.57, Hgb 14.6, Hct 42.2, MCV 92.3, MCH 31.9, MCHC 34.6, RDW Std Deviation 43.4, RDW Coeff of [place]ena 12.8, Plt Count 226, MPV 9.5, Immature Gran % (Auto) 0.600, Neut % (Auto) 75.9 H, Lymph % (Auto) 16.2 L, [place] % (Auto) 5.4, Eos % (Auto) 1.0, Baso % (Auto) 0.9, Absolute Neuts (auto) 5.9, Absolute Lymphs (auto) 1.25, Nucleated RBC % 0, PT 20.7 H, INR 1.8, APTT 32.0, Sodium 137, Potassium 3.5, Chloride 102, Carbon Dioxide 32.0, Anion Gap 3 L, BUN12, Creatinine 0.72, Estim Creat Clear Calc 39.63, Est GFR (MDRD) Af Amer 103, Est GFR (MDRD) Non-Af 85, BUN/Creatinine Ratio 16.8, Glucose 126 H, Calcium 8.8 01/15/23 21:15: Urine Color Yellow, Urine Clarity Sl. Cloudy, Urine pH 8.0, Ur Specific [place] 1.015, Urine Protein 15 H, Urine Glucose (UA) Normal, Urine Ketones Negative, Urine Occult Blood 10 H, Urine Nitrite Negative, Urine Bilirubin Negative, Urine Urobilinogen Normal, Ur Leukocyte Esterase Negative, Urine RBC 0-5 SEEN, Urine WBC 0-5 SEEN, Ur Squamous Epith Cells 0-5 SEEN, Urine Bacteria 0 SEEN, Urine Mucus 0 SEEN Imagaing Radiology Impression Brain CT 01/15/23 20:40 IMPRESSION: Chronic involutional changes of the brain. Electronically Signed: Taj Smith MD at 21:15 EST Reading Location ID and State: [place] / [employer] [facility] , Service support , Cervical Spine CT 01/15/23 20:40 IMPRESSION: No acute fracture or subluxation. Electronically Signed: Taj Smith MD at 21:31 EST Reading Location ID and State: [place] / [employer] , Service support , Facial/Sinus 01/15/23 20:40 IMPRESSION: Normal unenhanced CT of the facial bones. Acute right sphenoid sinusitis. Electronically Signed: Taj Smith MD at 21:20 EST Reading Location ID and State: [place] / [employer] , Service support , Hand X-Ray 01/15/23 20:45 IMPRESSION: No acute fracture or dislocation Electronically Signed: Taj Smith MD at 21:34 EST Reading Location ID and State: [place] / [employer] , Service support , Assessment & Plan Assessment/Plan (1) Hypertension: PLAN: Plan Presents with concerns of recurrent falls and was found to have systolic pressures greater than 200. She has a history of renal artery stenosis and alsorecently underwent CABG for triple-vessel disease. She continues to smoke abouthalf to 1 pack a day. A likely reason for her dizziness could be hypertensive emergency given her blood pressures. There was improvement in her symptoms while in the ED as her blood pressure was better controlled. 1. Hypertensive emergency: -Continue amlodipine, clonidine, hydralazine, labetalol. -Renal artery Doppler -Repeat echocardiogram -Will consider adding diuretics but given the dizziness we will hold off for now. 2. Recurrent falls -Physical therapy, Occupational Therapy evaluation -Better blood pressure control -High fall risk especially orthostatic symptoms can be present given multiple antihypertensive medications 3. Atrial fibrillation: Currently rate controlled -Continue warfarin 2.5 mg p.o. daily, INR presently at goal -Continue home amiodarone 200 mg daily 4. Right sphenoid sinusitis: No symptoms at present, continue to monitor 5. Dyslipidemia: Continue atorvastatin 6. Seizure disorder: On carbamazepine, last episode of seizure was about 20 years back. She has been on carbamazepine for few decades now, unlikely that her dizziness is due to adverse events Charges/Coding Visit Charges Inpatient E&M: 06571 Init Hosp L2 01/16/23 0105 <Electronically signed by Eladio Almanza MD> Cosigner Signature (if applicable): CC: Dr. Eladio Almanza MD; Dr. Mariann Trent MD~ Signed [facility] Work Phone: [phone]) 468-348712-10-2023 Discharge summary Author Johnathon Richardson [facility] January 15, 2023 10:29pm Note Date/Time January 15, 2023 8 :19pm [facility] Medical Records Department [address] [place] [id number] Emergency Department Summary 01/15/23 MR#: [id number] Acct: [id number] Name: MARK MARTIN Rep #:[id number] : 1950 72 From: Johnathon Sy PCP: Dr. Mariann Trent MD Status:REG ER Location: ED HPI HPI - Fall History of Present Illness Chief Complaint: Fall Informant: patient and EMS Narrative Narrative: Presents to the ED by EMS from home. Reported a fall around 6 PM. She hit her head on the stove. She got up felt dizzy had a couple more falls. Injury to her left hand. She is on warfarin for history of A-fib. History of three-vessel cardiac bypass this past April on aspirin. Denies loss of conscious. Facial pain. Denies nausea or vomiting. Denies recent cough. Denies urinary symptoms. She lives alone. Ambulates with a cane and does have a walker. She called her son who came and checked on her and EMS was contacted. States a weekago had a fall where she was able to get herself up. [facility] Medical History Afib Diabetes HTN (hypertension) Home Medications amiodarone 200 mg tablet mg 01/15/23 [History Last Taken Unknown] amlodipine 10 mg tablet 10 mg PO DAILY 01/15/23 [History Last Taken Unknown] atorvastatin 40 mg tablet 40 mg PO DAILY 01/15/23 [History Last Taken Unknown] carbamazepine 200 mg tablet 400 mg PO BID 01/15/23 [History Last Taken Unknown] clonidine HCl 0.3 mg tablet 0.3 mg PO TID 01/15/23 [History Last Taken 01/15/23] hydralazine 100 mg tablet 100 mg PO TID 01/15/23 [History Last Taken 01/15/23] labetalol 100 mg tablet 100 mg PO BID 01/15/23 [History Last Taken Unknown] ofloxacin 0.3 % eye drops 1 drp ophthalmic (eye) DAILY 01/15/23 [History Last Taken Unknown] valsartan 160 mg tablet 160 mg PO BID 01/15/23 [History Last Taken Unknown] warfarin 2.5 mg tablet mg 01/15/23 [History Last Taken Unknown] Allergy/AdvReac Type Severity Reaction Status Date / Time ibuprofen Allergy Rash Verified 01/15/23 20:14 naproxen [From Naprosyn] Allergy Rash Verified 01/15/23 20:14 codeine AdvReac Other Verified 01/15/23 20:14 Social History Smoking Status: Current every day smoker tobacco type: cigarettes ROS ROS ED Constitutional Constitutional ED: Denies chills, fever(s) or sweats Eyes Eyes: Denies change in vision ENT ENT ED: Reports other Details: Facial pain ; Denies dysphagia or sore throat Cardiovascular Cardiovascular: Denies chest pain, leg edema, palpitations or racing heartbeat Respiratory/Chest Respiratory/Chest: Denies cough, dyspnea or dyspnea on exertion Gastrointestinal Gastrointestinal: Denies abdominal pain, diarrhea, nausea or vomiting Genitourinary Genitourinary ED: Denies dysuria, hematuria or urinary frequency Musculoskeletal Musculoskeletal: Denies back pain, extremity pain or neck pain Integumentary Denies rash or wounds Neurologic Neurologic: Reports other Details: Dizziness ; Denies headache(s), paresthesias or weakness EXAM Physical Exam Const Vital Signs: 01/15/23 20:06 01/15/23 20:25 Temperature 97.1 F L Temperature Source Temporal Pulse Rate 59 L Respiratory Rate 18 Respiratory Effort Normal Blood Pressure 195/108 H Blood Pressure Mean 137 Pulse Ox 96 Oxygen Delivery Method Room Air Room Air Positive well nourished and well developed Constitutional Narrative: GCS 15. General Appearance ED: well developed and NAD HEENT Reports moist mucous membranes HEENT Narrative: Contusion right zygomatic area, there is dried blood inferior however there is no laceration there. No hemotympanums. normocephalic Eyes PERRL, EOMs intact bilaterally and conjunctivae normal Eyes Narrative: No nystagmus General Eye ED: Yes normal appearance of both eyes Neck full ROM, no lymphadenopathy and supple General: Negative for tenderness Chest Wall inspection of chest normal and palpation of chest normal Chest: Negative for tenderness Resp normal respiratory effort and normal air movement Effort and Inspection: symmetric chest movement; Negative for respiratory distress Cardio regular rate and no murmurs Rhythm: abnormal rhythm Peripheral Pulses: pulses 2+ throughout GI normal to inspection, nondistended, normoactive bowel sounds and non-tender Palpation: Negative for guarding or rebound tenderness present Back/Spine no CVA tenderness and no thoracic nor lumbar tenderness Back/Spine Narrative: No step-offs of the thoracic or lumbar 9. Extremity Extremity Narrative: Lower extremities: Negative logroll full range of motion lower extremities. Upper extremities full range of motion, left hand ring finger noted superficial skin tear proximal phalanx, there is no active bleeding. No deformities. General Extremety ED: Negative for edema or tenderness General Extremity: Negative for edema Neuro oriented x3, CN's II-XII intact bilaterally and no sensory deficits noted Sensorium / Orientation: awake and alert Skin no rashes or lesions noted and no wounds MDM MDM MDM Narrative Medical decision making narrative: Interventions / MDM: Differential diagnosis: Facial contusion, dizziness, elevated blood pressure Diagnosis considered but do not suspect: Intracranial hemorrhage, fractures however CT negative. My EKG interpretation: 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 rate of 78, no ST or T wave changes. Imaging independently reviewed and interpreted by myself: CT head/face/cervical spine: No fractures. Soft tissue swelling. No intracranial hemorrhage. Left hand 3 views: No fracture or radiopaque foreign bodies. External documents reviewed: N/A Test considered but not ordered:N/A ED course: Patient rate controlled a flutter, blood pressure elevated. Reporteddizziness symptoms causing multiple falls. There is no focal deficits no nystagmus. She is on warfarin. Trauma scans head face and neck was ordered. X- ray left hand. Check labs and urine. 2200: Trauma scans negative. X-ray negative. Blood pressure remained elevated reevaluation systolic 205 history significant hypertension on medication she hashad a renal artery stent. She is due for clonidine and hydralazine this evening. This was ordered orally for her. Urine was negative for both. With ambulation, patient unsteady per nursing. She has had multiple falls. She is currently not dizzy. 2224: With multiple falls unsteady gait, discussed with hospitalist Dr. Almanza for admission. Re-evaluation: stable Disposition discussed with patient/family/significant other: Case discussed with consulting clinician: N/A This note was generated with [employer] dictation software. It may contain incorrectwords, spelling, and punctuation that were not noted in checking the note beforesigning. Lab Data Labs: Laboratory Results - last 24 hr 01/15/23 01/15/23 20:25 21:15 WBC 7.7 RBC 4.57 Hgb 14.6 Hct 42.2 MCV 92.3 MCH 31.9 MCHC 34.6 RDW Std Deviation 43.4 RDW Coeff of [place]ena 12.8 Plt Count 226 MPV 9.5 Immature Gran % (Auto) 0.600 Neut % (Auto) 75.9 H Lymph % (Auto) 16.2 L [place] % (Auto) 5.4 Eos % (Auto) 1.0 Baso % (Auto) 0.9 Absolute Neuts (auto) 5.9 Absolute Lymphs (auto) 1.25 Nucleated RBC % 0 PT 20.7 H INR 1.8 APTT 32.0 Sodium 137 Potassium 3.5 Chloride 102 Carbon Dioxide 32.0 Anion Gap 3 L BUN 12 Creatinine 0.72 Estim Creat Clear Calc 39.63 Est GFR (MDRD) Af Amer 103 Est GFR (MDRD) Non-Af 85 BUN/Creatinine Ratio 16.8 Glucose 126 H Calcium 8.8 Urine Color Yellow Urine Clarity Sl. Cloudy Urine pH 8.0 Ur Specific [place] 1.015 Urine Protein 15 H Urine Glucose (UA) Normal Urine Ketones Negative Urine Occult Blood 10 H Urine Nitrite Negative Urine Bilirubin Negative Urine Urobilinogen Normal Ur Leukocyte Esterase Negative Urine RBC 0-5 SEEN Urine WBC 0-5 SEEN Ur Squamous Epith Cells 0-5 SEEN Urine Bacteria 0 SEEN Urine Mucus 0 SEEN Radiography Diagnostic Testing: Clinical Impression(s) from Imaging Studies Brain CT 01/15/23 20:40 IMPRESSION: Chronic involutional changes of the brain. Electronically Signed: Taj Smith MD at 21:15 EST Reading Location ID and State: [place] / [employer] , Service support , Cervical Spine CT 01/15/23 20:40 IMPRESSION: No acute fracture or subluxation. Electronically Signed: Taj Smith MD at 21:31 EST Reading Location ID and State: [place] / [employer] , Service support , Facial/Sinus 01/15/23 20:40 IMPRESSION: Normal unenhanced CT of the facial bones. Acute right sphenoid sinusitis. Electronically Signed: Taj Smith MD at 21:20 EST Reading Location ID and State: [place] / [employer] , Service support , Hand X-Ray 01/15/23 20:45 IMPRESSION: No acute fracture or dislocation Electronically Signed: Taj Smith MD at 21:34 EST Reading Location ID and State: [employer] / [employer] , Service support , Discharge Plan Triage Chief Complaint: Fall ED Provider: Johnathon Richardson Dx/Rx/DC Orders Clinical Impression: Abrasion of left ring finger, 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, chronic, Unsteady gait, Chronic anticoagulation, Multiple falls, Contusion of face, Hypertension Prescriptions: No Action amiodarone 200 mg tablet amlodipine 10 mg tablet 10 mg PO DAILY atorvastatin 40 mg tablet 40 mg PO DAILY carbamazepine 200 mg tablet 400 mg PO BID clonidine HCl 0.3 mg tablet 0.3 mg PO TID Patient Comments: TOOK 2X TODAY hydralazine 100 mg tablet 100 mg PO TID Patient Comments: HAS TAKEN 2 DOSES TODAY labetalol 100 mg tablet 100 mg PO BID ofloxacin 0.3 % drops 1 drp ophthalmic (eye) DAILY Patient Comments: TO LEFT EYE valsartan 160 mg tablet 160 mg PO BID warfarin 2.5 mg tablet Patient Comments: DOES NOT KNOW DOSE. Primary Care Provider: Mariann Trent Referrals: Mariann Trent MD [Primary Care Provider] - Disposition Disposition: [facility] What to do if you have Problems For any increased pain, shortness of breath, bleeding, nausea or vomiting, chestpain, or any unexpected problems, contact your Primary Care Provider. Call [facility] ([phone]) or report to the closest Emergency Room. Call 911 if necessary. 01/15/232228 <Electronically signed by Johnathon Sy> Cosigner Signature (if applicable): CC: Dr. Mariann Trent MD ~ Signed [facility] Work Phone: [phone]) 470-117012-09-2023 Discharge summary Author Johnathon Le [facility] January 15, 2023 10:29pm Note Date/Time January 15, 2023 8 :19pm [facility] System Medical Records Department [address] [place] [address] Emergency Department Summary 01/15/23 MR#: [id number] Acct: [id number] Name: MARK MARTIN Rep #:[id number] : 1950 72 From: Johnathon Sy PCP: Dr. Mariann Trent MD Status:REG ER Location: ED HPI HPI - Fall History of Present Illness Chief Complaint: Fall Informant: patient and EMS Narrative Narrative: Presents to the ED by EMS from home. Reported a fall around 6 PM. She hit her head on the stove. She got up felt dizzy had a couple more falls. Injury to her left hand. She is on warfarin for history of A-fib. History of three-vessel cardiac bypass this past April on aspirin. Denies loss of conscious. Facial pain. Denies nausea or vomiting. Denies recent cough. Denies urinary symptoms. She lives alone. Ambulates with a cane and does have a walker. She called her son who came and checked on her and EMS was contacted. States a weekago had a fall where she was able to get herself up. [facility] Medical History Afib Diabetes HTN (hypertension) Home Medications amiodarone 200 mg tablet mg 01/15/23 [History Last Taken Unknown] amlodipine 10 mg tablet 10 mg PO DAILY 01/15/23 [History Last Taken Unknown] atorvastatin 40 mg tablet 40 mg PO DAILY 01/15/23 [History Last Taken Unknown] carbamazepine 200 mg tablet 400 mg PO BID 01/15/23 [History Last Taken Unknown] clonidine HCl 0.3 mg tablet 0.3 mg PO TID 01/15/23 [History Last Taken 01/15/23] hydralazine 100 mg tablet 100 mg PO TID 01/15/23 [History Last Taken 01/15/23] labetalol 100 mg tablet 100 mg PO BID 01/15/23 [History Last Taken Unknown] ofloxacin 0.3 % eye drops 1 drp ophthalmic (eye) DAILY 01/15/23 [History Last Taken Unknown] valsartan 160 mg tablet 160 mg PO BID 01/15/23 [History Last Taken Unknown] warfarin 2.5 mg tablet mg 01/15/23 [History Last Taken Unknown] Allergy/AdvReac Type Severity Reaction Status Date / Time ibuprofen Allergy Rash Verified 01/15/23 20:14 naproxen [From Naprosyn] Allergy Rash Verified 01/15/23 20:14 codeine AdvReac Other Verified 01/15/23 20:14 Social History Smoking Status: Current every day smoker tobacco type: cigarettes ROS ROS ED Constitutional Constitutional ED: Denies chills, fever(s) or sweats Eyes Eyes: Denies change in vision ENT ENT ED: Reports other Details: Facial pain ; Denies dysphagia or sore throat Cardiovascular Cardiovascular: Denies chest pain, leg edema, palpitations or racing heartbeat Respiratory/Chest Respiratory/Chest: Denies cough, dyspnea or dyspnea on exertion Gastrointestinal Gastrointestinal: Denies abdominal pain, diarrhea, nausea or vomiting Genitourinary Genitourinary ED: Denies dysuria, hematuria or urinary frequency Musculoskeletal Musculoskeletal: Denies back pain, extremity pain or neck pain Integumentary Denies rash or wounds Neurologic Neurologic: Reports other Details: Dizziness ; Denies headache(s), paresthesias or weakness EXAM Physical Exam Const Vital Signs: 01/15/23 20:06 01/15/23 20:25 Temperature 97.1 F L Temperature Source Temporal Pulse Rate 59 L Respiratory Rate 18 Respiratory Effort Normal Blood Pressure 195/108 H Blood Pressure Mean 137 Pulse Ox 96 Oxygen Delivery Method Room Air Room Air Positive well nourished and well developed Constitutional Narrative: GCS 15. General Appearance ED: well developed and NAD HEENT Reports moist mucous membranes HEENT Narrative: Contusion right zygomatic area, there is dried blood inferior however there is no laceration there. No hemotympanums. normocephalic Eyes PERRL, EOMs intact bilaterally and conjunctivae normal Eyes Narrative: No nystagmus General Eye ED: Yes normal appearance of both eyes Neck full ROM, no lymphadenopathy and supple General: Negative for tenderness Chest Wall inspection of chest normal and palpation of chest normal Chest: Negative for tenderness Resp normal respiratory effort and normal air movement Effort and Inspection: symmetric chest movement; Negative for respiratory distress Cardio regular rate and no murmurs Rhythm: abnormal rhythm Peripheral Pulses: pulses 2+ throughout GI normal to inspection, nondistended, normoactive bowel sounds and non-tender Palpation: Negative for guarding or rebound tenderness present Back/Spine no CVA tenderness and no thoracic nor lumbar tenderness Back/Spine Narrative: No step-offs of the thoracic or lumbar 9. Extremity Extremity Narrative: Lower extremities: Negative logroll full range of motion lower extremities. Upper extremities full range of motion, left hand ring finger noted superficial skin tear proximal phalanx, there is no active bleeding. No deformities. General Extremety ED: Negative for edema or tenderness General Extremity: Negative for edema Neuro oriented x3, CN's II-XII intact bilaterally and no sensory deficits noted Sensorium / Orientation: awake and alert Skin no rashes or lesions noted and no wounds MDM MDM MDM Narrative Medical decision making narrative: Interventions / MDM: Differential diagnosis: Facial contusion, dizziness, elevated blood pressure Diagnosis considered but do not suspect: Intracranial hemorrhage, fractures however CT negative. My EKG interpretation: 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 rate of 78, no ST or T wave changes. Imaging independently reviewed and interpreted by myself: CT head/face/cervical spine: No fractures. Soft tissue swelling. No intracranial hemorrhage. Left hand 3 views: No fracture or radiopaque foreign bodies. External documents reviewed: N/A Test considered but not ordered:N/A ED course: Patient rate controlled a flutter, blood pressure elevated. Reporteddizziness symptoms causing multiple falls. There is no focal deficits no nystagmus. She is on warfarin. Trauma scans head face and neck was ordered. X- ray left hand. Check labs and urine. 2200: Trauma scans negative. X-ray negative. Blood pressure remained elevated reevaluation systolic 205 history significant hypertension on medication she hashad a renal artery stent. She is due for clonidine and hydralazine this evening. This was ordered orally for her. Urine was negative for both. With ambulation, patient unsteady per nursing. She has had multiple falls. She is currently not dizzy. 2225: With multiple falls unsteady gait, discussed with hospitalist Dr. Almanza for admission. Re-evaluation: stable Disposition discussed with patient/family/significant other: Case discussed with consulting clinician: N/A This note was generated with [employer] dictation software. It may contain incorrectwords, spelling, and punctuation that were not noted in checking the note beforesigning. Lab Data Labs: Laboratory Results - last 24 hr 01/15/23 01/15/23 20:25 21:15 WBC 7.7 RBC 4.57 Hgb 14.6 Hct 42.2 MCV 92.3 MCH 31.9 MCHC 34.6 RDW Std Deviation 43.4 RDW Coeff of [place] 12.8 Plt Count 226 MPV 9.5 Immature Gran % (Auto) 0.600 Neut % (Auto) 75.9 H Lymph % (Auto) 16.2 L [place] % (Auto) 5.4 Eos % (Auto) 1.0 Baso % (Auto) 0.9 Absolute Neuts (auto) 5.9 Absolute Lymphs (auto) 1.25 Nucleated RBC % 0 PT 20.7 H INR 1.8 APTT 32.0 Sodium 137 Potassium 3.5 Chloride 102 Carbon Dioxide 32.0 Anion Gap 3 L BUN 12 Creatinine 0.72 Estim Creat Clear Calc 39.63 Est GFR (MDRD) Af Amer 103 Est GFR (MDRD) Non-Af 85 BUN/Creatinine Ratio 16.8 Glucose 126 H Calcium 8.8 Urine Color Yellow Urine Clarity Sl. Cloudy Urine pH 8.0 Ur Specific [place] 1.015 Urine Protein 15 H Urine Glucose (UA) Normal Urine Ketones Negative Urine Occult Blood 10 H Urine Nitrite Negative Urine Bilirubin Negative Urine Urobilinogen Normal Ur Leukocyte Esterase Negative Urine RBC 0-5 SEEN Urine WBC 0-5 SEEN Ur Squamous Epith Cells 0-5 SEEN Urine Bacteria 0 SEEN Urine Mucus 0 SEEN Radiography Diagnostic Testing: Clinical Impression(s) from Imaging Studies Brain CT 01/15/23 20:40 IMPRESSION: Chronic involutional changes of the brain. Electronically Signed: Taj Smith MD at 21:15 EST Reading Location ID and State: [place] / [employer] , Service support , Cervical Spine CT 01/15/23 20:40 IMPRESSION: No acute fracture or subluxation. Electronically Signed: Taj Smith MD at 21:31 EST Reading Location ID and State: [facility] , Service support , Facial/Sinus 01/15/23 20:40 IMPRESSION: Normal unenhanced CT of the facial bones. Acute right sphenoid sinusitis. Electronically Signed: Taj Smith MD at 21:20 EST Reading Location ID and State: [place] / [employer] , Service support , Hand X-Ray 01/15/23 20:45 IMPRESSION: No acute fracture or dislocation Electronically Signed: Taj Smith MD at 21:34 EST Reading Location ID and State: [place] / [employer] , Service support , Discharge Plan Triage Chief Complaint: Fall ED Provider: Johnathon Richardson Dx/Rx/DC Orders Clinical Impression: Abrasion of left ring finger, 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, chronic, Unsteady gait, Chronic anticoagulation, Multiple falls, Contusion of face, Hypertension Prescriptions: No Action amiodarone 200 mg tablet amlodipine 10 mg tablet 10 mg PO DAILY atorvastatin 40 mg tablet 40 mg PO DAILY carbamazepine 200 mg tablet 400 mg PO BID clonidine HCl 0.3 mg tablet 0.3 mg PO TID Patient Comments: TOOK 2X TODAY hydralazine 100 mg tablet 100 mg PO TID Patient Comments: HAS TAKEN 2 DOSES TODAY labetalol 100 mg tablet 100 mg PO BID ofloxacin 0.3 % drops 1 drp ophthalmic (eye) DAILY Patient Comments: TO LEFT EYE valsartan 160 mg tablet 160 mg PO BID warfarin 2.5 mg tablet Patient Comments: DOES NOT KNOW DOSE. Primary Care Provider: Mariann Trent Referrals: Mariann Trent MD [Primary Care Provider] - Disposition Disposition: Acute Care Hospital [facility] What to do if you have Problems For any increased pain, shortness of breath, bleeding, nausea or vomiting, chestpain, or any unexpected problems, contact your Primary Care Provider. Call [facility] ([phone]) or report to the closest Emergency Room. Call 911 if necessary. 01/15/232228 <Electronically signed by Johnathon Sy> Cosigner Signature (if applicable): CC: Dr. Mariann Trent MD ~ Signed [facility] Work Phone: [phone] Hospital Discharge instructions Patient Education 07/25/2022 09:48:32 Coronary Artery Bypass Grafting, Fqgg-ct-Diie Coronary Artery Bypass Grafting Coronary artery bypass grafting (CABG) is a surgery that is done when arteries of the heart have become narrow or blocked. This is often caused by the buildup of fat called plaques. These arteries give the heart the oxygen and nutrients it needs to pump blood to your body. During CABG, a section of blood vessel from another part of the body is taken. This section is called a graft. The graft is placed where there is narrowing or blockage. Tell your doctor about: Any allergies you have. All medicines you are taking. Tell him or her about any steroids, blood thinners, vitamins, herbs, eye drops, creams, and jbba-lgh-qfelmpj medicines. Any problems you or family members have had with anesthetic medicines. Any blood disorders you have. Any surgeries you have had. Any medical conditions you have. Whether you are or may be . What are the risks? Generally, this is a safe procedure. However, problems may occur, including: Bleeding. You may need to get blood through an IV tube (transfusions). Infection. Allergic reactions to medicines or dyes. Pain at the surgical site. Damage to organs or other parts of the body. Short-term memory loss, confusion, and personality changes. Heart rhythm problems (arrhythmias). Stroke. Heart attack during or after surgery. Kidney failure. What happens before the procedure? Staying hydrated Follow instructions from your doctor about hydration. These may include: Up to 2 hours before the procedure you may continue to drink clear liquids, such as: ?Water. ?Clear fruit juice. ?Black coffee. ?Plain tea. Eating and drinking Follow instructions from your doctor about eating and drinking. These may include: 8 hours before the procedure stop eating heavy meals or foods, such as: ?Meat. ?Fried foods. ?Fatty foods. 6 hours before the procedure stop eating light meals or foods, such as: ?[place]. ?Cereal. 6 hours before the procedure stop drinking milk or drinks that contain milk. 2 hours before the procedure stop drinking clear liquids. Medicines Take bsdw-efb-jwgyxyv and prescription medicines only as told by your doctor. Ask your doctor about: ?Changing or stopping your normal medicines. This is important. ?Taking aspirin and ibuprofen. Do not take these medicines unless your doctor tells you to take them. ?Taking pxom-kpl-bxrfoos medicines, vitamins, herbs, and supplements. General instructions Ask your doctor: ?How your surgery site will be marked. ?What steps will be taken to help prevent the spread of germs. These may include: ?Removing hair at the surgery site. ?Washing skin with a germ-killing soap. ?Taking antibiotic medicine. You may be asked to shower with a germ-killing soap. For 3 6 weeks before the CABG, do not use any products that contain nicotine or tobacco. These include cigarettes, e-cigarettes, and chewing tobacco. Quitting smoking is one of the best things you can do for your heart health. If you need help quitting, ask your doctor. Talk with your doctor about where the grafts will be taken from for your surgery. What happens during the procedure? An IV tube will be placed into one of your veins. You will be given one or more of the following: ?A medicine to help you relax (sedative). ?A medicine to make you fall asleep (general anesthetic). A cut (incision) will be made down the front of the chest through the breastbone (sternum). The breastbone will be opened so your heart can be seen. You may or may not be placed on a heart-lung bypass machine. ?If this machine is used, your heart will be briefly stopped. ?This machine will give oxygen to your blood while your heart is being worked on. A section of blood vessel will be removed from another part of your body (often the chest, arm, or leg). The blood vessel will be attached above and below the blocked artery of your heart. This may be done on more than one artery of the heart. You will be taken off the heart-lung machine if it was used. If your heart was stopped, it will be restarted. Your chest will be closed with special wire that will hold your bones together as they heal. Your cuts will be closed with stitches (sutures), skin glue, or skin tape (adhesive) strips. A bandage (dressing) will be placed over the cuts. Tubes will stay in your chest. They will be connected to a device that will help drain fluid and reinflate the lungs. The procedure may vary among doctors and hospitals. What happens after the procedure? You will be monitored until you leave the hospital. This includes checking your blood pressure, heart rate, breathing rate, and blood oxygen level. You may wake up with a tube in your throat. This tube will help you breathe. You may be connected to a breathing machine. You will not be able to talk when the tube is in. The tube will be taken out when it is safe. You will be groggy and may have some pain. You will be given medicine to help the pain. You may be in the intensive care unit for 1 2 days. You may be given oxygen to help you breathe. You will be shown how to do deep breathing exercises. You may have to wear compression stockings. These stockings help to prevent blood clots and reduce swelling in your legs. You may be given new medicines to take. Cardiac rehab will be started while you are in the hospital. This may include education and exercises to help you recover from your surgery. Summary During CABG, a section of blood vessel from another part of the body is taken out. It is then placed where there is narrowing or blockage. For 3 6 weeks before the procedure, do not use any products that contain nicotine or tobacco. Quitting smoking is one of the best things you can do for your heart health. If you need help quitting, ask your doctor. You may wake up with a tube in your throat. This tube will help you breathe. You will not be able to talk when the tube is in. The tube will be taken out when it is safe. This information is not intended to replace advice given to you by your health care provider. Make sure you discuss any questions you have with your health care provider. Document Released: 01/29/2014 Document Revised: 10/03/2018 Document Reviewed: 10/03/2018 Prediculous Patient Education 2020 [employer]. 07/25/2022 09:48:16 Hypertension, Adult, Rnhp-sd-Dfig Hypertension, Adult Hypertension is another name for high blood pressure. High blood pressure forces your heart to workharder to pump blood. This can cause problems over time. There are two numbers in a blood pressure reading. There is a top number (systolic) over a bottom number (diastolic). It is best to have a blood pressure that is below 120/80. Healthy choices can help lower your blood pressure, or you may need medicine to help lower it. What are the causes? The cause of this condition is not known. Some conditions may be related to high blood pressure. What increases the risk? Smoking. Having type 2 diabetes mellitus, high cholesterol, or both. Not getting enough exercise or physical activity. Being overweight. Having too much fat, sugar, calories, or salt (sodium) in your diet. Drinking too much alcohol. Having long-term (chronic) kidney disease. Having a family history of high blood pressure. Age. Risk increases with age. Race. You may be at higher risk if you are . Gender. Men are at higher risk than women before age 45. After age 65, women are at higher risk than men. Having obstructive sleep apnea. Stress. What are the signs or symptoms? High blood pressure may not cause symptoms. Very high blood pressure (hypertensive crisis) may cause: ?Headache. ?Feelings of worry or nervousness (anxiety). ?Shortness of breath. ?Nosebleed. ?A feeling of being sick to your stomach (nausea). ?Throwing up (vomiting). ?Changes in how you see. ?Very bad chest pain. ?Seizures. How is this treated? This condition is treated by making healthy lifestyle changes, such as: ?Eating healthy foods. ?Exercising more. ?Drinking less alcohol. Your health care provider may prescribe medicine if lifestyle changes are not enough to get your blood pressure under control, and if: ?Your top number is above 130. ?Your bottom number is above 80. Your personal target blood pressure may vary. Follow these instructions at home: Eating and drinking If told, follow the DASH eating plan. To follow this plan: ?Fill one half of your plate at each meal with fruits and vegetables. ?Fill one fourth of your plate at each meal with whole grains. Whole grains include whole-wheat pasta, brown rice, and whole-grain bread. ?Eat or drink low-fat dairy products, such as skim milk or low-fat yogurt. ?Fill one fourth of your plate at each meal with low-fat (lean) proteins. Low- fat proteins include fish, chicken without skin, eggs, beans, and tofu. ?Avoid fatty meat, cured and processed meat, or chicken with skin. ?Avoid pre-made or processed food. Eat less than 1,500 mg of salt each day. Do not drink alcohol if: ?Your doctor tells you not to drink. ?You are , may be , or are planning to become . If you drink alcohol: ?Limit how much you use to: ?0 1 drink a day for women. ?0 2 drinks a day for men. ?Be aware of how much alcohol is in your drink. In the [place] one drink equals one 12 oz bottle of beer (355 mL), one 5 oz glass of wine (148 mL), or one 1 oz glass of hard liquor (44 mL). Lifestyle Work with your doctor to stay at a healthy weight or to lose weight. Ask your doctor what the best weight is for you. Get at least 30 minutes of exercise most days of the week. This may include walking, swimming, or biking. Get at least 30 minutes of exercise that strengthens your muscles (resistance exercise) at least 3 days a week. This may include lifting weights or doing Pilates. Do not use any products that contain nicotine or tobacco, such as cigarettes, e- cigarettes, and chewing tobacco. If you need help quitting, ask your doctor. Check your blood pressure at home as told by your doctor. Keep all follow-up visits as told by your doctor. This is important. Medicines Take eayw-tjw-izmzkcx and prescription medicines only as told by your doctor. Follow directions carefully. Do not skip doses of blood pressure medicine. The medicine does not work as well if you skip doses.Skipping doses also puts you at risk for problems. Ask your doctor about side effects or reactions to medicines that you should watch for. Contact a doctor if you: Think you are having a reaction to the medicine you are taking. Have headaches that keep coming back (recurring). Feel dizzy. Have swelling in your ankles. Have trouble with your vision. Get help right away if you: Get a very bad headache. Start to feel mixed up (confused). Feel weak or numb. Feel faint. Have very bad pain in your: ?Chest. ?Belly (abdomen). Throw up more than once. Have trouble breathing. Summary Hypertension is another name for high blood pressure. High blood pressure forces your heart to work harder to pump blood. For most people, a normal blood pressure is less than 120/80. Making healthy choices can help lower blood pressure. If your blood pressure does not get lower with healthy choices, you may need to take medicine. This information is not intended to replace advice given to you by your health care provider. Make sure you discuss any questions you have with your health care provider. Document Released: 07/12/2008 Document Revised: 10/04/2018 Document Reviewed: 10/04/2018 Prediculous Patient Education 2020 [employer]. Follow Up Care 07/15/2022 18:16:41 With:CHELITA GAMEZ WINDOWS SECURITY ANALYST-PAD ASSEMBLER Address: [address] [facility] [place] [address] [phone] When: Unknown With:MAURY CASTELLANOS MD, Thoracic Service, Vascular Service Address: [address] [place] [address] [address] [facility] [place] [address] [phone] When:08/02/2022 15:00:00 Comments:This is your post-hospital follow-up appointment. You need to get a chest x-ray & labwork an hour (2:00) at the hospital before the appointment. [facility] 06-18-2023 Note Discharge Instructions Thank you for allowing [facility] to assist you with your healthcare needs. The following is importantdischarge information regarding your hospital visit. Your Care [facility] Your Diagnosis Asthenia HTN (hypertension) CAD (coronary artery disease) s/p CABG x3, EF 55-60%, 07/09/2022 Epilepsy Atrial fibrillation Anemia Hx of CABG Moderate aortic insufficiency s/p AVR 23 mm Castro Magna Ease, 07/09/2022 What to do next Instructions From Your Doctor Thank you for allowing us to participate in your care. Continue medications as prescribed. PT/INR in 1 to 3 days due to warfarin (blood thinner) therapy. Results with go to your PCP Chelita Gamez. Continue home therapy as discussed. Return to the emergency department for any symptoms or concerns including but not limited to, fever, chills, dizziness, lightheadedness, chest pain, palpitations,shortness of breath, nausea, vomiting, or abdominal pain. Please do not hesitate to contact us if you have any questions or concerns [phone] CODI Anderson. Scheduled Follow-Up Appointments Appointment Type When With Where Contact InformationCV Procedure - [phone] C[facility] OV Post Op 08/02/2022 03:00 PM EDT [facility] [place] [facility] CV OV 08/13/2022 09:45 AM [facility] Follow Up with MAURY CASTELLANOS MD, Thoracic Service, Vascular Service When 08/02/2022 03:00 PM EDT Why: This is your post-hospital follow-up appointment. You need to get a chest x-ray & labwork an hour (2:00) at the hospital before the appointment. Where: [address] [facility] [place] [address] [phone] Follow Up with CHELITA GAMEZ When Where: [address] [place] [address] [phone] The Following Activity and Diet Have Been Ordered for You Discharge Activity - Ordered -- Lifting Restricted less than 10 pounds, Activity as directed by therapy. Lifting restriction of less than 10 pounds. Driving restrictions (No driving). May shower., 07/25/22 8:29:00 EDT Discharge Driving Restrictions - Ordered -- No driving until follow up appt, 07/25/22 8:29:00 EDT Discharge Diet - Ordered -- Type of Diet: Regular Diet, Diet Restrictions: Cardiac diet, 07/25/22 8:29:00 EDT The Following Equipment Has Been Ordered for You Discharge Home Equipment Discharge Home Equipment - Ordered -- Walker; with wheels, 99 month(s), 07/22/22 14:42:00 EDT Discharge Wound Care - Ordered -- Change Dressing: qDay, Keep chest wound dry and clean. Wash gently with soap and water. Pat dry., 07/25/22 8:29:00 EDT The Following Treatments Have Been Ordered for You Discharge Labs Discharge Outpatient Labwork - Ordered -- PT/INR, warfarin therapy, follow-up within: 1-3 days, Results Notify to: CHELITA GAMEZ, 07/25/22 8:29:00 EDT Discharge Radiology No qualifying data available. Other Therapies No qualifying data available. Post Acute Orders No qualifying data available. Someone Will Contact You Regarding These Home Health Referrals Consult Home Health - OT - Ordered -- 07/22/22 11:38:00 EDT, Home Therapy Order: OT Eval & Treat, Home Therapy Instruction: Full weight bearing, Reason: ADL assistance Consult Home Health - PT - Ordered -- 07/22/22 11:37:00 EDT, Home Therapy Order: PT Eval & Treat, Reason: General Debility, Home Therapy Instruction: Full weight bearing Allergies Mayonnaise (Facial swelling, Difficulty breathing, Anaphylaxis) codeine (Dizziness/Vertigo) ibuprofen (Itching) naproxen (Hives) Medications Please ask your primary doctor or pharmacist before taking any other medication not listed, including over the counter drugs, herbal medications, vitamins and or supplements as they may interact withyour home medications. What How Much When Why Instructions Last Dose New oxyCODONE (oxyCODONE 5 mg oral tablet ( IMMEDIATErelease )) 1 tab(s) by mouth Every 6 hours as needed for Pain, scale 7-10 CAD (coronary artery disease) s/p CABG x3, EF 55-60%, 07/09/2022 Hx of CABG Duration: 3 Days Pickup at [facility] [address] Changed amiodarone (amiodarone 200 mg oral tablet) 1 tab(s) by mouth Two (2) times a day Pickup at [facility] [address] Unchanged acetaminophen (Tylenol Extra Strength 500 mg oral tablet) 2 tab(s) by mouth Every 8 hours as needed for as needed for pain Unchanged amLODIPine (Norvasc 10 mg oral tablet) 1 tab(s) by mouth Once a day Duration: 90 Days Pickup at [facility] [address] Unchanged aspirin (aspirin 81 mg oral delayed release tablet) 1 tab(s) by mouth Every day Unchanged atorvastatin (atorvastatin 40 mg oral tablet) 1 tab(s) by mouth Once a day Pickup at [facility] [address] Unchanged calcium-vitamin D (calcium-vitamin D 600 mg-5 mcg (200 intl units) oral capsule) 1 cap by mouth Two (2) times a day Duration: 90 Days Unchanged carBAMazepine (carBAMazepine 200 mg oral tablet) 2 tab(s) by mouth Two (2) times a day Duration: 90 Days Unchanged cloNIDine (cloNIDine 0.3 mg oral tablet) 1 tab(s) by mouth Three (3) times a day Duration: 90 Days Pickup at [facility] [address] Unchanged hydrALAZINE (hydrALAZINE 10 mg oral tablet) 1 tab(s) by mouth Three (3) times a day Pickup at [facility] [address] Unchanged labetalol (labetalol 100 mg oral tablet) 1 tab(s) by mouth Two (2) times a day Duration: 90 Days Pickup at [facility] [address] Unchanged multivitamin with minerals (Green Source Multivitamin & Minerals oral tablet) 1 tab(s) by mouth Every day Unchanged polyethylene glycol 3350 (MiraLax oral powder for reconstitution) 17 gram(s) by mouth Once a day as needed for Constipation Unchanged valsartan (valsartan 160 mg oral tablet) 1 tab(s) by mouth Two (2) times a day Duration: 30 Days Pickup at [facility] [address] Unchanged warfarin (warfarin 2.5 mg oral tablet) 1 tab(s) by mouth Every day Duration: 6 week(s) Pickup at [facility] [address] Pharmacy Information [phone]: [id number] [place] [phone] Please take this list to your next doctor s visit. Bring all medications you take, including over the counter medications, herbals and other supplements with you to your doctor s visit. Patients and families are reminded to discard old lists and to update any records with all medication providers or retail pharmacies. Medication Leaflets amiodarone (oral) (A jon [place] da cullen) Pacerone What is the most important information I should know about amiodarone? Amiodarone is for use only in treating life-threatening heart rhythm disorders. You should not take this medicine if you are allergic to amiodarone or iodine, or if you have heartblock, a history of slow heartbeats that have caused you to faint, or if your heart cannot pump blood properly. Amiodarone can cause dangerous side effects on your heart, liver, lungs, or vision. Call your doctor or get medical help at once if you have: chest pain, fast or pounding heartbeats, trouble breathing, vision problems, upper stomach pain, vomiting, dark urine, jaundice (yellowing ofthe skin or eyes), or if you cough up blood. What is amiodarone? Amiodarone affects the rhythm of your heartbeats. Amiodarone is used to help keep the heart beating normally in people with life- threatening heart rhythm disorders of the ventricles (the lower chambers of the heart that allow blood to flow out of the heart). Amiodarone is used to treat ventricular tachycardia or ventricular fibrillation. Amiodarone is for use only in treating life-threatening heart rhythm disorders. Amiodarone may also be used for purposes not listed in this medication guide. What should I discuss with my healthcare provider before taking amiodarone? You should not use this medicine if you are allergic to amiodarone or iodine, or if you have: a serious heart condition called 'AV block' (2nd or 3rd degree), unless you have a pacemaker; a history of slow heartbeats that have caused you to faint; or if your heart cannot pump blood properly. Amiodarone can cause dangerous side effects on your heart, liver, lungs, or thyroid. Tell your doctor if you have ever had: asthma or another lung disorder; liver disease; a thyroid disorder; vision problems; high or low blood pressure; an electrolyte imbalance (such as low levels of potassium or magnesium in your blood); or if you have a pacemaker or defibrillator implanted in your chest. Taking amiodarone during may harm an unborn baby, or cause thyroid problems or abnormal heartbeats in the baby after it is born. Amiodarone may also affect the child's growth or development(speech, movement, academic skills) later in life. Tell your doctor if you are or if you become . You should not breast-feed while taking amiodarone, and for several months after stopping. Amiodarone takes a long time to clear from your body. Talk to your doctor about the best way to feed your baby during this time. How should I take amiodarone? Follow all directions on your prescription label and read all medication guides or instruction sheets. Your doctor may occasionally change your dose. Use the medicine exactly as directed. You will receive your first few doses in a hospital setting, where your heart rhythm can be monitored. If you have been taking another heart rhythm medicine, you may need to gradually stop taking it when you start using amiodarone. Follow your doctor's dosing instructions very carefully. You may take amiodarone with or without food, but take it the same way each time. It may take up to 3 weeks before your heart rhythm improves. Keep using the medicine as directed even if you feel well. Amiodarone can have long lasting effects on your body. You may need frequent medical tests while using this medicine and for several months after your last dose. If you need surgery (including laser eye surgery), tell the surgeon ahead of time that you are using amiodarone. This medicine can affect the results of certain medical tests. Tell any doctor who treats you that you are using amiodarone. Store at room temperature away from moisture, heat, and light. What happens if I miss a dose? Skip the missed dose and use your next dose at the regular time. Do not use two doses at one time. What happens if I overdose? Seek emergency medical attention or call the Poison Help line at . An overdose of amiodarone can be fatal. Overdose symptoms may include weakness, slow heart rate, feeling light-headed, or loss of consciousness. What should I avoid while taking amiodarone? Avoid driving or hazardous activity until you know how this medicine will affect you. Your reactions could be impaired. Grapefruit may interact with amiodarone and lead to unwanted side effects. Avoid the use of grapefruit products. Avoid taking an herbal supplement containing [place]'s wort. Amiodarone could make you sunburn more easily. Avoid sunlight or tanning beds. Wear protective clothing and use sunscreen (SPF 30 or higher) when you are outdoors. What are the possible side effects of amiodarone? Get emergency medical help if you have signs of an allergic reaction: hives; difficulty breathing; swelling of your face, lips, tongue, or throat. Amiodarone takes a long time to completely clear from your body. You may continue to have side effects from amiodarone after you stop using it. Call your doctor at once if you have any of these side effects, even if they occur up to several months after you stop using amiodarone: wheezing, cough, chest pain, cough with bloody mucus, fever; a new or a worsening irregular heartbeat pattern (fast, slow, or pounding heartbeats); a light-headed feeling, like you might pass out; blurred vision, seeing halos around lights (your eyes may be more sensitive to light); liver problems--nausea, vomiting, stomach pain (upper right side), tiredness, dark urine, jaundice (yellowing of the skin or eyes); nerve problems--loss of coordination, muscle weakness, uncontrolled muscle movement, or a prickly feeling in your hands or lower legs; signs of overactive thyroid--weight loss, thinning hair, feeling hot, increased sweating, tremors, feeling nervous or irritable, irregular menstrual periods, swelling in your neck (goiter); or signs of underactive thyroid--weight gain, tiredness, depression, trouble concentrating, feeling cold. Common side effects may include: nausea, vomiting, loss of appetite; or constipation. This is not a complete list of side effects and others may occur. Call your doctor for medical advice about side effects. You may report side effects to FDA at 5-308-YEG-2520. What other drugs will affect amiodarone? Sometimes it is not safe to use certain medications at the same time. Some drugs can affect your blood levels of other drugs you take, which may increase side effects or make the medications less effective. Amiodarone takes a long time to completely clear from your body. Drug interactions are possible forup to several months after you stop using amiodarone. Talk to your doctor before taking any medication during this time. Keep track of how long it has been since your last dose of amiodarone. Many drugs can affect amiodarone. This includes prescription and ocqn-wuz-kmhahtb medicines, vitamins, and herbal products. Not all possible interactions are listed here. Tell your doctor about all your current medicines and any medicine you start or stop using. Where can I get more information? Your doctor or pharmacist can provide more information about amiodarone. Remember, keep this and all other medicines out of the reach of children, never share your medicines with others, and use this medication only for the indication prescribed. Every effort has been made to ensure that the information provided by [employer]. ('[employer]') is accurate, up-to-date, and complete, but no guarantee is made to that effect. Drug information contained herein may be time sensitive. [employer] information has been compiled for use by healthcare practitioners and consumers in the [place] and therefore [employer] does not warrant that uses outside of the [place] are appropriate, unless specifically indicated otherwise. [employer] drug information does not endorse drugs, diagnose patients or recommend therapy. [employer] drug information isan informational resource designed to assist licensed healthcare practitioners in caring for their p atients and/or to serve consumers viewing this service as a supplement to, and not a substitute for, the expertise, skill, knowledge and judgment of healthcare practitioners. The absence of a warningfor a given drug or drug combination in no way should be construed to indicate that the drug or drug combination is safe, effective or appropriate for any given patient. [employer] does not assume any responsibility for any aspect of healthcare administered with the aid of information [employer] provides. The information contained herein is not intended to cover all possible uses, directions, precautions, warnings, drug interactions, allergic reactions, or adverse effects. If you have questions about the drugs you are taking, check with your doctor, nurse or pharmacist. Copyright 3227-7454 [employer]. Version: 7.01. Revision Date: 12/13/2017. carbamazepine (oral) (simon Tafoya) Carbatrol, Epitol, Equetro, TEGretol, TEGretol XR What is the most important information I should know about carbamazepine? You should not take carbamazepine if you have a history of bone marrow suppression, or if you are allergic to carbamazepine or to certain antidepressant medications. Tell your doctor about all your current medicines and any you start or stop using. Many drugs can interact, and some drugs should not be used together. Carbamazepine may cause serious blood problems or a life-threatening skin rash or allergic reaction. Call your doctor if you have a fever, unusual weakness, bleeding, bruising, or a skin rash that causes blistering and peeling. Some people have thoughts about suicide while taking seizure medicine. Stay alert to changes in your mood or symptoms. Report any new or worsening symptoms to your doctor. Do not stop taking carbamazepine without asking your doctor first, even if you feel fine. What is carbamazepine? Carbamazepine is an anticonvulsant that is used to treat seizures and nerve pain such as trigeminalneuralgia and diabetic neuropathy. Carbamazepine is also used to treat bipolar disorder. Carbamazepine may also be used for purposes not listed in this medication guide. What should I discuss with my healthcare provider before taking carbamazepine? You should not take carbamazepine if you have a history of bone marrow suppression, or if you are allergic to carbamazepine or to an antidepressant such as amitriptyline, desipramine, doxepin, imipramine, or nortriptyline. Do not use carbamazepine if you have taken an MAO inhibitor in the past 14 days. A dangerous drug interaction could occur. MAO inhibitors include furazolidone, isocarboxazid, linezolid, phenelzine, rasagiline, selegiline, and tranylcypromine. Carbamazepine may cause severe or life-threatening skin rash, and especially in people of ancestry. Your doctor may recommend a blood test before you start the medication to determine your risk. Tell your doctor if you have ever had: heart problems; liver or kidney disease; glaucoma; porphyria; depression, mood disorder; or suicidal thoughts or actions. You may have thoughts about suicide while taking carbamazepine. Your doctor should check your progress at regular visits. Your family or other caregivers should also be alert to changes in your mood or symptoms. Do not start or stop taking seizure medication during without your doctor's advice. Carbamazepine may harm an unborn baby, but having a seizure during could harm both mother and baby. The benefit of preventing seizures may outweigh any risk. Tell your doctor right away if you become . If you are , your name may be listed on a registry to track the effects of carbamazepine on the baby. Carbamazepine can make control pills or implants less effective. Use a barrier form of control (such as a condom or diaphragm with spermicide) to prevent . You should not breastfeed while you are using carbamazepine. How should I take carbamazepine? Follow all directions on your prescription label and read all medication guides or instruction sheets. Your doctor may occasionally change your dose. Use the medicine exactly as directed. Take with food. Swallow the extended-release tablet or capsule whole and do not crush, chew, or break it. Tell yourdoctor if you cannot swallow a pill whole. The chewable tablet must be chewed before you swallow it. Shake the oral suspension (liquid) before you measure a dose. Use the dosing syringe provided, or use a medicine dose-measuring device (not a kitchen spoon). It may take up to 4 weeks before your symptoms improve. Keep using the medication as directed and call your doctor promptly if this medicine seems to stop working as well in preventing your seizures. You will need frequent medical tests. Store at room temperature away from moisture, heat, and light. Do not stop using carbamazepine suddenly, even if you feel fine. Stopping suddenly may cause increased seizures. Follow your doctor's instructions about tapering your dose. What happens if I miss a dose? Take the medicine as soon as you can, but skip the missed dose if it is almost time for your next dose. Do not take two doses at one time. What happens if I overdose? Seek emergency medical attention or call the Poison Help line at . Overdose symptoms may include severe drowsiness, weak or shallow breathing, and loss of consciousness. What should I avoid while taking carbamazepine? Drinking alcohol with this medicine can cause side effects, and can also increase your risk of seizures. Grapefruit may interact with carbamazepine and lead to unwanted side effects. Avoid the use of grapefruit products. Avoid driving or hazardous activity until you know how this medicine will affect you. Your reactions could be impaired. Carbamazepine could make you sunburn more easily. Avoid sunlight or tanning beds. Wear protective clothing and use sunscreen (SPF 30 or higher) when you are outdoors. What are the possible side effects of carbamazepine? Get emergency medical help if you have signs of an allergic reaction (hives, difficult breathing, swelling in your face or throat) or a severe skin reaction (fever, sore throat, burning in your eyes,skin pain, red or purple skin rash that spreads and causes blistering and peeling). Seek medical treatment if you have a serious drug reaction that can affect many parts of your body.Symptoms may include: skin rash, fever, swollen glands, muscle aches, severe weakness, unusual bruising, or yellowing of your skin or eyes. Report any new or worsening symptoms to your doctor, such as: sudden mood or behavior changes, depression, anxiety, insomnia, or if you feel agitated, hostile, restless, irritable, or have thoughts about suicide or hurting yourself. Call your doctor at once if you have: a skin rash, no matter how mild; loss of appetite, right-sided upper stomach pain, dark urine; slow, fast, or pounding heartbeats; anemia or other blood problems--fever, chills, sore throat, mouth sores, bleeding gums, nosebleeds,pale skin, easy bruising, unusual tiredness, feeling light-headed or short of breath; or low levels of sodium in the body--headache, confusion, severe weakness, feeling unsteady, increasedseizures. Common side effects may include: dizziness, loss of coordination, problems with walking; nausea, vomiting; or drowsiness. This is not a complete list of side effects and others may occur. Call your doctor for medical advice about side effects. You may report side effects to FDA at 3-687-YKZ-7663. What other drugs will affect carbamazepine? Sometimes it is not safe to use certain medications at the same time. Some drugs can affect your blood levels of other drugs you take, which may increase side effects or make the medications less effective. Using carbamazepine with other drugs that make you drowsy can worsen this effect. Ask your doctor before using opioid medication, a sleeping pill, a muscle relaxer, or medicine for anxiety or seizures. Many drugs can affect carbamazepine, and some drugs should not be used at the same time. Tell your doctor about all your current medicines and any medicine you start or stop using. This includes prescription and yvtv-yln-oypdiza medicines, vitamins, and herbal products. Not all possible interactions are listed here. Where can I get more information? Your pharmacist can provide more information about carbamazepine. Remember, keep this and all other medicines out of the reach of children, never share your medicines with others, and use this medication only for the indication prescribed. Every effort has been made to ensure that the information provided by [employer]. ('[employer]') is accurate, up-to-date, and complete, but no guarantee is made to that effect. Drug information contained herein may be time sensitive. [employer] information has been compiled for use by healthcare practitioners and consumers in the [place] and therefore [employer] does not warrant that uses outside of the [place] are appropriate, unless specifically indicated otherwise. [employer] information does not endorse drugs, diagnose patients or recommend therapy. [employer] drug information isan informational resource designed to assist licensed healthcare practitioners in caring for their p atients and/or to serve consumers viewing this service as a supplement to, and not a substitute for, the expertise, skill, knowledge and judgment of healthcare practitioners. The absence of a warningfor a given drug or drug combination in no way should be construed to indicate that the drug or drug combination is safe, effective or appropriate for any given patient. [employer] does not assume any responsibility for any aspect of healthcare administered with the aid of information [employer] provides. The information contained herein is not intended to cover all possible uses, directions, precautions, warnings, drug interactions, allergic reactions, or adverse effects. If you have questions about the drugs you are taking, check with your doctor, nurse or pharmacist. Copyright 4201-7831 [employer]. Version: 14.01. Revision Date: 02/05/2019. warfarin (oral) (WAR far in) Coumadin, [place] What is the most important information I should know about warfarin? You should not take warfarin if you are prone to bleeding because of a medical condition, if you have an upcoming surgery, or if you need a spinal tap or epidural. Do not take warfarin if you cannot take it on time every day. Warfarin increases your risk of severe or fatal bleeding, especially if you have certain medical conditions, if you are 65 or older, or if you have had a stroke, or bleeding in your stomach or intestines. Seek emergency help if you have any bleeding that will not stop. Call your doctor at once if you have other signs of bleeding such as: swelling, pain, feeling very weak or dizzy, unusual bruising, bleeding gums, nosebleeds, heavy menstrual periods or abnormal vaginal bleeding, blood in your urine, bloody or tarry stools, coughing up blood or vomit that looks like coffee grounds. Many other drugs can increase your risk of bleeding when used with warfarin. Tell your doctor about all medicines you have recently used. Avoid making any changes in your diet without first talking to your doctor. Some foods can make warfarin less effective. What is warfarin? Warfarin is an anticoagulant (blood thinner). Warfarin reduces the formation of blood clots. Warfarin is used to treat or prevent blood clots in veins or arteries, which can reduce the risk ofstroke, heart attack, or other serious conditions. Warfarin may also be used for purposes not listed in this medication guide. What should I discuss with my healthcare provider before taking warfarin? You should not take warfarin if you are allergic to it, or if: you have very high blood pressure; you recently had or will have surgery on your brain, spine, or eye; you undergo a spinal tap or spinal anesthesia (epidural); or you cannot take warfarin on time every day. You also should not take warfarin if you are are prone to bleeding because of a medical condition, such as: a blood cell disorder (such as low red blood cells or low platelets); ulcers or bleeding in your stomach, intestines, lungs, or urinary tract; an aneurysm or bleeding in the brain; or an infection of the lining of your heart. Do not take warfarin if you are , unless your doctor tells you to. Warfarin can cause birthdefects, but preventing blood clots may outweigh any risks to the baby. If you are not , use effective control to prevent while taking warfarin and for at least 1 month after your last dose. Tell your doctor right away if you become . Warfarin can make you bleed more easily, especially if you have ever had: high blood pressure or serious heart disease; kidney disease; cancer or low blood cell counts; an accident or surgery; bleeding in your stomach or intestines; a stroke; or if you are 65 or older. To make sure warfarin is safe for you, tell your doctor if you have ever had: diabetes; congestive heart failure; liver disease, kidney disease (or if you are on dialysis); a hereditary clotting deficiency; or low blood platelets after receiving heparin. It is not known whether warfarin passes into breast milk. Watch for signs of bruising or bleeding in the baby if you take warfarin while you are breast- feeding a baby. How should I take warfarin? Follow all directions on your prescription label. Your doctor may occasionally change your dose. Donot take warfarin in larger or smaller amounts or for longer than your doctor tells you to. Take warfarin at the same time every day, with or without food. Never take a double dose. Warfarin can make it easier for you to bleed. Seek emergency help if you have any bleeding that will not stop. You will need frequent 'INR' or prothrombin time tests (to measure your blood- clotting time and determine your warfarin dose). You must remain under the care of a doctor while taking warfarin. If you receive warfarin in a hospital, call or visit your doctor 3 to 7 days after you leave the hospital. Your INR will need to be tested at that time. Do not miss any follow-up appointments. Tell your doctor if you are sick with diarrhea, fever, chills, or flu symptoms, or if your body weight changes. You may need to stop taking warfarin 5 to 7 days before having any surgery, dental work, or a medical procedure. Call your doctor for instructions. Wear a medical alert tag or carry an ID card stating that you take warfarin. Any medical care provider who treats you should know that you are taking this medicine. Store at room temperature away from heat, moisture, and light. What happens if I miss a dose? Take the missed dose as soon as you remember. Skip the missed dose if it is almost time for your next scheduled dose. Do not take extra medicine to make up the missed dose. What happens if I overdose? Seek emergency medical attention or call the Poison Help line at . An overdose can cause excessive bleeding. What should I avoid while taking warfarin? Avoid activities that may increase your risk of bleeding or injury. Use extra care to prevent bleeding while shaving or brushing your teeth. You may still bleed more easily for several days after youstop taking warfarin. Avoid making any changes in your diet without first talking to your doctor. Foods that are high in vitamin K (liver, leafy green vegetables, or vegetable oils) can make warfarin less effective. If these foods are part of your diet, eat a consistent amount on a weekly basis. Grapefruit juice, cranberry juice, janae juice, and pomegranate juice may interact with warfarin andlead to unwanted side effects. Avoid the use of these juice products while taking warfarin. Avoid drinking alcohol. Ask your doctor before using any medicine for pain, arthritis, fever, or swelling. This includes aspirin, ibuprofen (Advil, Motrin), naproxen (Aleve), celecoxib (Celebrex), diclofenac, indomethacin, meloxicam, and others. These medicines may affect blood clotting and may also increase your risk of stomach bleeding. What are the possible side effects of warfarin? Get emergency medical help if you have signs of an allergic reaction: hives; difficult breathing; swelling of your face, lips, tongue, or throat. Warfarin increases your risk of bleeding, which can be severe or life- threatening. Call your doctorat once if you have any signs of bleeding such as: sudden headache, feeling very weak or dizzy; swelling, pain, unusual bruising; bleeding gums, nosebleeds; bleeding from wounds or needle injections that will not stop; heavy menstrual periods or abnormal vaginal bleeding; blood in your urine, bloody or tarry stools; or coughing up blood or vomit that looks like coffee grounds. Clots formed by warfarin may block normal blood flow, which could lead to tissue or amputation of the affected body part. Get medical help at once if you have: pain, swelling, hot or cold feeling, skin changes, or discoloration anywhere on your body; or sudden and severe leg or foot pain, foot ulcer, purple toes or fingers. Bleeding is the most common side effect of warfarin. This is not a complete list of side effects and others may occur. Call your doctor for medical advice about side effects. You may report side effects to FDA at 4-582-GGB-5719. What other drugs will affect warfarin? Many drugs (including some fhvf-jna-hroqxln medicines and herbal products) can affect your INR and may increase the risk of bleeding if you take them with warfarin. Not all possible drug interactionsare listed in this medication guide. It is very important to ask your doctor and pharmacist before you start or stop using any other medicine, especially: other medicines to prevent blood clots; an antibiotic or antifungal medicine; supplements that contain vitamin K; or herbal (botanical) products--coenzyme Q10, cranberry, echinacea, garlic, ginkgo biloba, ginseng, goldenseal, or [place]'s wort. This list is not complete and many other drugs can interact with warfarin. This includes prescription and vouw-fbm-jeihcli medicines, vitamins, and herbal products. Give a list of all your medicines to any healthcare provider who treats you. Where can I get more information? Your pharmacist can provide more information about warfarin. Remember, keep this and all other medicines out of the reach of children, never share your medicines with others, and use this medication only for the indication prescribed. Every effort has been made to ensure that the information provided by [employer]. ('[employer]') is accurate, up-to-date, and complete, but no guarantee is made to that effect. Drug information contained herein may be time sensitive. [employer] information has been compiled for use by healthcare practitioners and consumers in the [place] and therefore [employer] does not warrant that uses outside of the [place] are appropriate, unless specifically indicated otherwise. [employer] drug information does not endorse drugs, diagnose patients or recommend therapy. [employer] drug information isan informational resource designed to assist licensed healthcare practitioners in caring for their p atients and/or to serve consumers viewing this service as a supplement to, and not a substitute for, the expertise, skill, knowledge and judgment of healthcare practitioners. The absence of a warningfor a given drug or drug combination in no way should be construed to indicate that the drug or drug combination is safe, effective or appropriate for any given patient. [employer] does not assume any responsibility for any aspect of healthcare administered with the aid of information [employer] provides. The information contained herein is not intended to cover all possible uses, directions, precautions, warnings, drug interactions, allergic reactions, or adverse effects. If you have questions about the drugs you are taking, check with your doctor, nurse or pharmacist. Copyright 4467-0837 [employer]. Version: 22.01. Revision Date: 10/21/2016. labetalol (oral/injection) (la BAY ta lol) Trandate What is the most important information I should know about labetalol? Use only as directed. Tell your doctor if you use other medicines or have other medical conditions or allergies. What is labetalol? Labetalol is a beta-aaron that is used to treat hypertension (high blood pressure). Labetalol oral is sometimes given with other blood pressure medications. Labetalol injection is used when hypertension is severe. Labetalol may also be used for purposes not listed in this medication guide. What should I discuss with my healthcare provider before using labetalol? You should not use labetalol if you are allergic to it, or if you have: asthma; 'AV block' (2nd or 3rd degree); uncontrolled heart failure; very low blood pressure; slow heartbeats that have caused you to faint; or if your heart cannot pump blood properly. Tell your doctor if you have ever had: congestive heart failure; angina (chest pain); liver disease; emphysema, chronic bronchitis, or other breathing problems; pheochromocytoma (tumor of the adrenal gland); diabetes; coronary artery bypass surgery (sometimes called 'CABG'); kidney disease; or allergies. Labetalol can affect your pupils. If you need eye surgery, tell the surgeon about your use of this medicine, even if you no longer take it. Labetalol may cause low blood pressure, low blood sugar, slow heartbeats, or breathing problems in a if the mother uses labetalol during . Tell your doctor if you are or plan to become . Ask a doctor if it is safe to breastfeed while using this medicine. Not approved for use by anyone younger than 18 years old. How should I use labetalol? Follow all directions on your prescription label and read all medication guides or instruction sheets. Your doctor may occasionally change your dose. Use the medicine exactly as directed. Labetalol oral is taken by mouth. Labetalol injection is given in a vein by a healthcare provider when hypertension is severe. After the injection you may need to remain lying down for up to 3 hours. You may feel light-headed when you first stand up. Your blood pressure will need to be checked often, and you may need other medical tests. If you have diabetes, check your blood sugar regularly. Keep using this medicine as directed, even if you feel well. High blood pressure often has no symptoms. Labetalol can cause false results with certain lab tests of the urine, including a drug-screening urine test. Tell the laboratory staff that you use labetalol. Tell your doctor if you have a planned surgery. You should not stop using labetalol suddenly. Stopping suddenly may make your condition worse. Store at room temperature away from moisture and heat. What happens if I miss a dose? Take the medicine as soon as you can, but skip the missed dose if it is almost time for your next dose. Do not take two doses at one time. What happens if I overdose? Seek emergency medical attention or call the Poison Help line at . Overdose symptoms may include slow heart rate, wheezing, chest tightness, trouble breathing, extreme dizziness, seizure, or fainting. What should I avoid while using labetalol? Avoid driving or hazardous activity until you know how this medicine will affect you. Your reactions could be impaired. Avoid getting up too fast from a sitting or lying position, or you may feel dizzy. Drinking alcohol can further lower your blood pressure and may increase certain side effects of labetalol. What are the possible side effects of labetalol? Get emergency medical help if you have signs of an allergic reaction: hives; difficulty breathing; swelling of your face, lips, tongue, or throat. Call your doctor at once if you have: a light-headed feeling, like you might pass out; slow heart rate, weak pulse, fainting, slow breathing (breathing may stop); shortness of breath (even with mild exertion), swelling, rapid weight gain; severe headache, blurred vision, pounding in your neck or ears; or liver problems--loss of appetite, stomach pain (upper right side), flu-like symptoms, itching, darkurine, jaundice (yellowing of the skin or eyes). Severe diz (more content not included)... [facility]06-15-2023 Note Date of Service 07.22.22 Chief Complaint weakness Subjective 72-year-old female with past medical history significant for hypertension, hyperlipidemia, mitral valve prolapse, COPD, renal artery stenosis, CVA with balance issues, depression, seizures, tobacco use, CAD- CABG x3, Postoperative atrial fibrillation anticoagulated with warfarin. Patient originally presented to [facility] emergency department on 06/27/2022 after having a syncopal episode at home. She was transferred to [facility] for NSTEMI. Underwent left heart cath on 07/01/2022. Patient was seen by vascular surgery and had a right renal artery stentplaced on 07/02/2022. Patient underwent CABG x3 and AV replacement on 07/09/2022. Postoperatively she was found to be in atrial fibrillation with good rate control. 07/13/2022 she underwent thoracentesis for pleural effusion with 900 mL of serosanguineous fluid removed. She was seen by nephrology for hypertension with adjustment in home medications. Patient continues with PT/OT here, reports she is doing well and hopes to go home early next week. Has some mid chest incisional discomfort, but otherwise no pain, denies SOB. No nausea, tolerating diet, bowel and bladder working well. previously had some black stools, she reports this is resolved. Objective Vitals and Measurements T: 36.1 C (Oral) TMIN: 36.1 C (Oral) TMAX: 36.9 C (Oral) HR: 67(Apical) RR: 26 BP: 132/86 SpO2: 94% Intake and Output 7AM Yesterday to 7AM Today Intake and Output (Last 24 hours) Intake Output Urine Count 2.00 Total Summary Total Intake 0.00 Total Output 0.00 Fluid Balance 0.00 Physical Exam Weight Current Weight Dosing Weight: 61.4 kg (07/16/22) Current Weight: 60.7 kg (07/16/22) Dosing Weight: 65.2 kg (07/15/22) Vitals Signs(Last 24 hrs)__ Last Charted Minimum Maximum Temp 36.1(JUL 22 07:32) 36.1(JUL 22 07:32) 36.9(JUL 14 17:47) Heart Rate 67(JUL 15 08:51) 67(JUL 22 07:32) 84(JUL 14 20:48) Resp Rate H 26(JUL 22 07:32) 18(JUL 14 17:47) H 26(JUL 15 06:25) SBP 132(JUL 15 13:25) 117(ARNOL 14 22:21) H 162(JUL 15 05:55) DBP 86(JUL 22 13:25) 70(JUL 14 22:21) H 90(ARNOL 14 17:47) Physical Exam General: No acute distress. Alert and Appropriate Skin: No rash. Warm, Dry, chest incision healing well, small scabbed area at the distal end with a dressing as she reports a scab came off and was bleeding, dressing is dry with no drainage. RLE incisions healing well Lungs: Bilaterally clear breath sounds with no crepitation or wheeze. Cardiovascular: Heart is regular rhythm, S1S2, No extra-audible heart tones Abdomen: Abdomen is soft, nontender. Bowel sounds positive all four quadrants. No hepatosplenomegaly noted. Extremities: No clubbing, cyanosis or edema. Neurological: The patient is awake, oriented to person, place and time. Following simple commands, moving all extremities. DVT PROPHYLAXIS-coumadin Medications Medications (23) Active Scheduled: (13) amiodarone 200 mg tablet 200 mg 1 tab(s), Oral, BID amLODIPine 5 mg tablet 10 mg 2 tab(s), Oral, qDay aspirin 81 mg EC 81 mg 1 tab(s), Oral, Daily atorvastatin 40 mg tablet 40 mg 1 tab(s), Oral, qDay calcium-vitamin D 500 mg-200 units tablet 1 tab(s), Oral, BIDM carbamazepine 200 mg tablet 400 mg 2 tab(s), Oral, BIDM clonidine 0.1 mg tablet 0.3 mg 3 tab(s), Oral, TID hydralazine 10 mg Tablet 10 mg 1 tab(s), Oral, TID labetalol 100 mg tablet 100 mg 1 tab(s), Oral, BID multivitamin (Myadec) with minerals Therapeutic Multiple Vitamins with Minerals Tablet 1 tab(s), Oral, qDayM pantoprazole 20 mg EC tablet 20 mg 1 tab(s), Oral, qDayAC valsartan 320 mg tablet 160 mg 0.5 tab(s), Oral, BID warfarin 2.5 mg tablet 2.5 mg 1 tab(s), Oral, Daily Continuous: (0) PRN: (10) acetaminophen 325 mg Tablet 650 mg 2 tab(s), Oral, q4h acetaminophen 325 mg Tablet 650 mg 2 tab(s), Oral, q4h acetaminophen 500 mg Tablet 1,000 mg 2 tab(s), Oral, q8h Al hydrox/Mg hydrox/simethicone 200-200-20 mg/5 mL Susp UD 15 mL, Oral, q4h docusate sodium 100 mg Capsule 100 mg 1 cap(s), Oral, BID guaifenesin 100 mg/5 mL 120 mL liquid 200 mg 10 mL, Oral, q4h melatonin 3 mg tablet 6 mg 2 tab(s), Oral, qHS menthol (Biofreeze) gel packet 1 esthela, Topical, TID oxycodone 5 mg tablet (immediate release) 5 mg 1 tab(s), Oral, q6hr polyethylene glycol 3350 - UD packet 17 gram(s) 15 mL, Oral, BID Lab Results 07/22 09:17 Hgb: 9.9 L Hct: 29.2 L Glucose Level: 165 H Sodium Level: 137 Potassium Level: 4.6 BUN: 9 Creatinine Lvl (s): 0.72 EKG No qualifying data available. Assessment/Plan 1. Asthenia 2. HTN (hypertension) 3. CAD (coronary artery disease) s/p CABG x3, EF 55-60%, 07/09/2022 4. Epilepsy 5. Atrial fibrillation 6. Anemia Patient continues with physical and Occupational Therapy following open heart surgery. She seems radha progressing well, planning to discharge home early next week. Cardiology follow-up as scheduled.Continue wound care as ordered by CTS. Home pt/ot ordered Patient was seen by nephrology during her hospital stay for uncontrolled hypertension, she is on multiple medications at this time. Blood pressures reviewed and stable. Continue current regimen. History of epilepsy, no issues with seizures, continue on carbamazepine. Patient has a history of atrial fibrillation, on Coumadin, last INR was 2.3. Due for an INR tomorrow. No abnormal bleeding. Patient had postoperative anemia, Last hemoglobin was 8.6, repeat hemoglobin today up to 9.9. BMP also obtained and electrolytes are within normal limits. Discussed with Dr. Kayla Lilly Orders: Consult Home Health - OT Consult Home Health - PT Wound Care Time Spent I spent a total of 36 minutes reviewing the patient s diagnostic labs/tests, seeing and examining the patient and documenting in the medical record, see assessment for further detail. Digitally Signed by DUSTIN CHAVIRA on 07/22/2022 01:48 PM [facility]06-13-2023 Note Date of Service 07/20/2022 Chief Complaint Weakness Subjective 72-year-old female with past medical history significant for hypertension, hyperlipidemia, mitral valve prolapse, COPD, renal artery stenosis, CVA with balance issues, depression, seizures, tobacco use, CAD- CABG x3, Postoperative atrial fibrillation anticoagulated with warfarin. Patient originally presented to [facility] emergency department on 06/27/2022 after having a syncopal episode at home. She was transferred to [facility] for NSTEMI. Underwent left heart cath on 07/01/2022. Patient was seen by vascular surgery and had a right renal artery stentplaced on 07/02/2022. Patient underwent CABG x3 and AV replacement on 07/09/2022. Postoperatively she was found to be in atrial fibrillation with good rate control. 07/13/2022 she underwent thoracentesis for pleural effusion with 900 mL of serosanguineous fluid removed. She was seen by nephrology for hypertension with adjustment in home medications. Patient was evaluated by therapy services with recommendations for inpatient Rehab. She was subsequently admitted to [facility] TCU. Patient is progressing well with therapy services. She still has some balance issues however those are chronic. She is still needs improvement with endurance. Patient denies any fever or chills. No headache or dizziness. Denies chest pain, palpitations. No cough, dyspnea, sputum production. Denies N/V/D/C. No melena/hematochezia. No dysuria or hematuria. No new paresthesias. Intake and Output 7AM Yesterday to 7AM Today Intake and Output (Last 24 hours) Intake Output Stool Count 2.00 Urine Count 4.00 Total Summary Total Intake 0.00 Total Output 0.00 Fluid Balance 0.00 Physical Exam GEN: Appears chronically ill. CHEST: Normal S1 and S2. Rhythm is regular. Clear to auscultation, without rales, rhonchi, wheezing. ABD: Positive bowel sounds x 4 quads. Soft, nondistended, nontender. EXT: No significant deformity or joint abnormality. No edema. Peripheral pulses intact. NEURO: Sensation grossly intact SKIN: Scattered bruising. Chest incision clean, dry, well approximated. Leg incisions covered with Steri-Strips and healing well. PSYCH: The mental examination revealed the patient was alert and oriented x 4 Weight Current Weight Dosing Weight: 61.4 kg (07/16/22) Current Weight: 60.7 kg (07/16/22) Dosing Weight: 65.2 kg (07/15/22) Medications Medications (24) Active Scheduled: (14) amiodarone 200 mg tablet 400 mg 2 tab(s), Oral, BID amiodarone 200 mg tablet 200 mg 1 tab(s), Oral, BID amLODIPine 5 mg tablet 10 mg 2 tab(s), Oral, qDay aspirin 81 mg EC 81 mg 1 tab(s), Oral, Daily atorvastatin 40 mg tablet 40 mg 1 tab(s), Oral, qDay calcium-vitamin D 500 mg-200 units tablet 1 tab(s), Oral, BIDM carbamazepine 200 mg tablet 400 mg 2 tab(s), Oral, BIDM clonidine 0.1 mg tablet 0.3 mg 3 tab(s), Oral, TID hydralazine 10 mg Tablet 10 mg 1 tab(s), Oral, TID labetalol 100 mg tablet 100 mg 1 tab(s), Oral, BID multivitamin (Myadec) with minerals Therapeutic Multiple Vitamins with Minerals Tablet 1 tab(s), Oral, qDayM pantoprazole 20 mg EC tablet 20 mg 1 tab(s), Oral, qDayAC valsartan 320 mg tablet 160 mg 0.5 tab(s), Oral, BID warfarin 2.5 mg tablet 2.5 mg 1 tab(s), Oral, Daily Continuous: (0) PRN: (10) acetaminophen 325 mg Tablet 650 mg 2 tab(s), Oral, q4h acetaminophen 325 mg Tablet 650 mg 2 tab(s), Oral, q4h acetaminophen 500 mg Tablet 1,000 mg 2 tab(s), Oral, q8h Al hydrox/Mg hydrox/simethicone 200-200-20 mg/5 mL Susp UD 15 mL, Oral, q4h docusate sodium 100 mg Capsule 100 mg 1 cap(s), Oral, BID guaifenesin 100 mg/5 mL 120 mL liquid 200 mg 10 mL, Oral, q4h melatonin 3 mg tablet 6 mg 2 tab(s), Oral, qHS menthol (Biofreeze) gel packet 1 esthela, Topical, TID oxycodone 5 mg tablet (immediate release) 5 mg 1 tab(s), Oral, q6hr polyethylene glycol 3350 - UD packet 17 gram(s) 15 mL, Oral, BID Lab Results 07/20 05:00 Protime: 26.2 H PT International Ratio: 2.3 07/19 16:00 Protime: 25.6 H PT International Ratio: 2.2 07/19 05:31 Protime: 26.8 H PT International Ratio: 2.3 Assessment/Plan 1. Asthenia 2. HTN (hypertension) 3. CAD (coronary artery disease) s/p CABG x3, EF 55-60%, 07/09/2022 4. Epilepsy 5. Atrial fibrillation 6. Anemia Asthenia continue with PT and OT. Patient is progressing well. Still having some endurance issues. HTN- SBP goal 140 or less. Continue home antihypertensives. CAD- s/p CABG x3 on 07/09/2022. Continue aspirin, statin, beta-aaron. Incision is clean, dry, well approximated. Epilepsy continue carbamazepine. No seizure activity. Atrial fibrillation this started postoperatively. Patient was evaluated by cardiology. Continue labetalol and warfarin. Check INR twice weekly. INR has been therapeutic. Anemia patient received 1 PRBC postoperatively. Hemoglobin on 07/14/2022 was 7.7. Patient noted to have black, tarry stools overnight. Check occult stool. check CBC this morning. Hb is 9 this morning. Patient is hemodynamically stable. DVT prophylaxis: Warfarin Labs, diagnostics, and progress notes reviewed as noted in HPI Code Status: Full code Plan of care discussed with patient. All questions answered. Patient verbalizes understanding is agreeable to plan of care. This dictation was performed using voice recognition software and may include grammatical and/or spelling errors. Digitally Signed by INGA MONTANEZ on 07/20/2022 01:06 PM [facility]06-09-2023 Evaluation + Plan noteExtracted from: Title:History and Physical Author:INGA MONTANEZ Date:07/16/22 1. Asthenia 2. HTN (hypertension) 3. CAD (coronary artery disease) s/p CABG x3, EF 55-60%, 07/09/2022 Ordered: oxyCODONE, Start: 07/15/22 18:42:00 EDT, Dose = 5 mg, = 1 tab(s), Oral, q6hr, PRN, Pain, scale 7-10, 0, 07/15/22 18:42:00 EDT 4. Epilepsy 5. Atrial fibrillation 6. Anemia Asthenia consult PT and OT HTN- SBP goal 140 or less. Continue home antihypertensives. CAD- s/p CABG x3 on 07/09/2022. Continue aspirin, statin, beta-aaron. Incision is clean, dry, well approximated. Epilepsy continue carbamazepine. No seizure activity. Atrial fibrillation this started postoperatively. Patient was evaluated by cardiology. Continue labetalol and warfarin. INR today is 2.5. Check INR twice weekly. Anemia patient received 1 PRBC postoperatively. Hemoglobin on 07/14/2022 was 7.7. Patient noted to have black, tarry stools overnight. Check occult stool. check CBC this morning. Hb is 9 this morning. Patient is hemodynamically stable. DVT prophylaxis: Warfarin Labs, diagnostics, and progress notes reviewed as noted in HPI Code Status: Full code Plan of care discussed with patient. All questions answered. Patient verbalizes understanding is agreeable to plan of care. This dictation was performed using voice recognition software and may include grammatical and/or spelling errors. Future Appointments Appointment Date:07/27/2022 03:00:00 PM Scheduled Provider: Location:[facility] Appointment Type:CV Procedure - AOH Echo Appointment Date:08/02/2022 03:00:00 PM Scheduled Provider:MAURY CASTELLANOS MD Location:[facility] Appointment Type:CTS OV Post Op Appointment Date:08/13/2022 09:45:00 AM Scheduled Provider: Location:[facility] Appointment Type:CV OV Future Scheduled Tests Laboratory* Basic Metabolic Panel 07/17/22 * Basic Metabolic Panel 07/19/22 * Complete Blood Count 07/17/22 Radiology* XR Chest 2 Views (PA & Lateral) 08/02/22 [facility] 06-09-2023 Note Date of Service 07/16/22 Chief Complaint Weakness History of Present Illness 72-year-old female with past medical history significant for hypertension, hyperlipidemia, mitral valve prolapse, COPD, renal artery stenosis, CVA with balance issues, depression, seizures, tobacco use, CAD- CABG x3, Postoperative atrial fibrillation anticoagulated with warfarin. Patient originally presented to [facility] emergency department on 06/27/2022 after having a syncopal episode at home. She was transferred to [facility] for NSTEMI. Underwent left heart cath on 07/01/2022. Patient was seen by vascular surgery and had a right renal artery stentplaced on 07/02/2022. Patient underwent CABG x3 and AV replacement on 07/09/2022. Postoperatively she was found to be in atrial fibrillation with good rate control. 07/13/2022 she underwent thoracentesis for pleural effusion with 900 mL of serosanguineous fluid removed. She was seen by nephrology for hypertension with adjustment in home medications. Patient was evaluated by therapy services with recommendations for inpatient Rehab. She was subsequently admitted to [facility] TCU. On exam today, pt denies any fever or chills. No headache or dizziness. Denies chest pain. She doeshave racing heart with activity however when she rests that resolves. No cough, dyspnea, sputum production. Denies N/V/D/C. Patient reported black, tarry stools overnight.. No dysuria or hematuria. No new paresthesias. Pain is well controlled. Review of Systems See HPI for specific ROS. All other systems reviewed and negative. Physical Exam Vitals and Measurements Weight Current Weight Dosing Weight: 61.4 kg (07/16/22) Current Weight: 60.7 kg (07/16/22) Dosing Weight: 65.2 kg (07/15/22) GEN: Appears chronically ill EYES: No conjunctival erythema, drainage. EOMI EARS: Hearing grossly intact. NOSE: No nasal discharge. THROAT: Oral cavity and pharynx pink and moist. CHEST: Normal S1 and S2. Rhythm is regular. Clear to auscultation, without rales, rhonchi, wheezing. ABD: Positive bowel sounds x 4 quads. Soft, nondistended, nontender. EXT: No significant deformity or joint abnormality. No edema. Peripheral pulses intact. NEURO: Sensation grossly intact SKIN: Scattered bruising. Chest incision clean, dry, well approximated. Leg incisions covered with Steri-Strips and healing well. PSYCH: The mental examination revealed the patient was alert and oriented x 4 Lab Results 07/16 09:40 WBC: 10.7 Hgb: 9.0 L Hct: 26.3 L Platelet: 334 Neutrophil %: 78.4 07/16 05:13 Protime: 28.6 H PT International Ratio: 2.5 Assessment/Plan 1. Asthenia 2. HTN (hypertension) 3. CAD (coronary artery disease) s/p CABG x3, EF 55-60%, 07/09/2022 Ordered: oxyCODONE, Start: 07/15/22 18:42:00 EDT, Dose = 5 mg, = 1 tab(s), Oral, q6hr, PRN, Pain, scale 7-10, 0, 07/15/22 18:42:00 EDT 4. Epilepsy 5. Atrial fibrillation 6. Anemia Asthenia consult PT and OT HTN- SBP goal 140 or less. Continue home antihypertensives. CAD- s/p CABG x3 on 07/09/2022. Continue aspirin, statin, beta-aaron. Incision is clean, dry, well approximated. Epilepsy continue carbamazepine. No seizure activity. Atrial fibrillation this started postoperatively. Patient was evaluated by cardiology. Continue labetalol and warfarin. INR today is 2.5. Check INR twice weekly. Anemia patient received 1 PRBC postoperatively. Hemoglobin on 07/14/2022 was 7.7. Patient noted to have black, tarry stools overnight. Check occult stool. check CBC this morning. Hb is 9 this morning. Patient is hemodynamically stable. DVT prophylaxis: Warfarin Labs, diagnostics, and progress notes reviewed as noted in HPI Code Status: Full code Plan of care discussed with patient. All questions answered. Patient verbalizes understanding is agreeable to plan of care. This dictation was performed using voice recognition software and may include grammatical and/or spelling errors. Problem List/Past Medical History Ongoing Aortic valve stenosis Bradycardia CAD (coronary artery disease) s/p CABG x3, EF 55-60%, 07/09/2022 COPD EXACERBATION COPD with chronic bronchitis Coronary artery disease Current tobacco use CVA (cerebrovascular accident) DYSLIPIDEMIA Epilepsy History of epilepsy HTN (hypertension) Mitral valve prolapse Moderate aortic insufficiency NSTEMI (non-ST elevated myocardial infarction) PERSONAL HISTORY OF OTHER DISEASES OF THE NERVOUS SYSTEM AND SENSE ORGANS Pleural effusion, left Resistant hypertension RESISTANT HYPERTENSION Rheumatic heart disease SOB (shortness of breath) STENOSIS OF ONE OF TWO RENAL ARTERIES Stenosis of right renal artery Historical History of stroke Procedure/Surgical History Coronary artery bypass grafts x 3: 07/04/22 Total knee arthroplasty: 02/21/20 PFT - Pulmonary function tests: 12/18/20 Echocardiogram: 02/15/17 Holter monitor: 01/24/17 Cardiovascular stress testin01/29/10 Structure of medial meniscus of right knee joint: 02/20/08 Arthroscopy of knee- left: 1995 Hemorrhoidectomy: 1984 Hysterectomy Vascular flow Stapedectomy Entire tonsils and adenoids History of hernia repair Medications Home Medications (15) Active amiodarone 200 mg oral tablet 400 mg = 2 tab(s), Oral, BID aspirin 81 mg oral delayed release tablet 81 mg = 1 tab(s), Oral, Daily atorvastatin 40 mg oral tablet 40 mg = 1 tab(s), Oral, qDay calcium-vitamin D 600 mg-5 mcg (200 intl units) oral capsule 1 cap(s), Oral, BID carBAMazepine 200 mg oral tablet 400 mg = 2 tab(s), Oral, BID cloNIDine 0.3 mg oral tablet 0.3 mg = 1 tab(s), Oral, TID Green Source Multivitamin & Minerals oral tablet 1 tab(s), Oral, Daily hydrALAZINE 10 mg oral tablet 10 mg = 1 tab(s), Oral, TID labetalol 100 mg oral tablet 100 mg = 1 tab(s), Oral, BID MiraLax oral powder for reconstitution 17 gram(s), PRN, Oral, qDay Norvasc 10 mg oral tablet 10 mg = 1 tab(s), Oral, qDay oxyCODONE 5 mg oral tablet ( IMMEDIATE release ) 5 mg = 1 tab(s), PRN, Oral, q6hr Tylenol Extra Strength 500 mg oral tablet 1,000 mg = 2 tab(s), PRN, Oral, q8h valsartan 160 mg oral tablet 160 mg = 1 tab(s), Oral, BID warfarin 2.5 mg oral tablet 2.5 mg = 1 tab(s), Oral, Daily Allergies Mayonnaise (Facial swelling, Difficulty breathing, Anaphylaxis) codeine (Dizziness/Vertigo) ibuprofen (Itching) naproxen (Hives) Social History Smoking Status - 06/28/2017 Current every day smoker Alcohol - Denies Alcohol Use, 06/28/2017 Use: Never., 12/29/2018 Employment/School Status: Retired. Previous employment/school: [employer] at [employer] 08/03/2019 Home/Environment Living situation: Home/Independent. Safe place to go: Yes. Lives In: Mobile home, 3-4 steps to get in door has rails on both side. Current Home Treatments Blood Pressure monitoring, anais, karlo gettingramp put in., 07/15/2022 Domestic Concerns: Denies. Living situation: Home with assistance. 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 Lives In: Single level home. Current Home Treatments None. Professional Skilled Services or Special Community Resources None. Financial concerns: Yes. Spouse Name: ABIODUN. Marital Status: ., 02/21/2020 Nutrition/Health Type of diet: Regular, Low sodium. Appetite Fair. Eating Difficulties None. Enteral Feedings No. TPN Feedings No. Skin Breakdown No., 07/15/2022 Type of diet: Regular. Appetite Good. Eating Difficulties None. Enteral Feedings No. TPN Feedings No. Skin Breakdown No. Caffeine intake amount: coffee 4 cups, half caff., 02/21/2020 Substance Abuse - Denies Substance Abuse, 06/28/2017 Use: Never., 12/29/2018 Tobacco Nicotine Use: Former smoker, quit more than 30 days ago. Number of years: 20., 06/27/2022 Family History Asthma: Negative: Son. Cancer: Negative: Son. Cancer: Brother. Coronary arteriosclerosis: Brother. Diabetes mellitus: Mother. Diabetes mellitus type 2: Brother. HIV: Negative: Son. HTN - Hypertension: Mother, Father and Son. Heart attack: Father. Heart disease: Mother, Father and Brother. Hepatitis: Negative: Son. Hyperchloremia: Son. Mental illness: Negative: Son. Seizure: Mother.Negative: Son. Stroke: Negative: Son. TB - Tuberculosis: Negative: Son. Immunizations pneumococcal 13-valent conjugate vaccine: 0 unknown unit (07/23/14) SARS-CoV-2 mRNA (tozinameran) vaccine: 0.3 unknown unit (11/26/20) SARS-CoV-2 mRNA (tozinameran) vaccine: 0.3 unknown unit (05/20/20) SARS-CoV-2 mRNA (tozinameran) vaccine: 0.3 unknown unit (04/29/20) tetanus/diphth/pertuss (Tdap) adult/adol: 0 unknown unit (08/24/12) varicella virus vaccine: 0 unknown unit (03/11/22) zoster vaccine, inactivated: 0.5 unknown unit (06/05/22) zoster vaccine, inactivated: 0.5 unknown unit (03/11/22) Code Status Code Status - Ordered -- 07/15/22 18:39:00 EDT, Full Code, Constant Order Digitally Signed by INGA MONTANEZ on 07/16/2022 10:39 AM [facility]12-14-2022 Evaluation + Plan note Diagnostic Tests Pending * [facility] Lab Send out (Blood Specimens) 01/20/22 [facility] Evaluation + Plan note Future Appointments Appointment Date:04/27/2021 11:05:00 AM Scheduled Provider:MARIANN TRENT MD Location:[facility] Appointment Type:PC OV Appointment Date:07/15/2021 12:00:00 PM Scheduled Provider: Location:[facility] Appointment Type:CV [facility] Echo Future Scheduled Tests Laboratory* Thyroid Stimulating Hormone 10/24/20 * Complete Blood Count 10/24/20 * Lipid Profile 10/24/20 * Complete Metabolic Panel 10/24/20 [facility] Evaluation + Plan note Future Scheduled Tests Laboratory* Basic Metabolic Panel 07/17/22 * Complete Blood Count 07/17/22 [facility] Evaluation + Plan note Future Appointments Appointment Date:08/02/2022 03:00:00 PM Scheduled Provider:MAURY CASTELLANOS MD Location:[facility] Appointment Type:CTS OV Post Op Appointment Date:08/04/2022 01:00:00 PM Scheduled Provider:CHELITA GAMEZ Location:[facility] Appointment Type:PC OV TCM 30 Appointment Date:08/13/2022 09:45:00 AM Scheduled Provider: Location:[facility] Appointment Type:CV OV Future Scheduled Tests Laboratory* Basic Metabolic Panel 07/17/22 * Basic Metabolic Panel 07/19/22 * Complete Blood Count 07/17/22 Radiology* XR Chest 2 Views (PA & Lateral) 08/02/22 [facility] Evaluation + Plan note Future Appointments Appointment Date:08/04/2022 01:00:00 PM Scheduled Provider:CHELITA GAMEZ Location:[facility] Appointment Type:PC OV TCM 30 Appointment Date:08/13/2022 09:45:00 AM Scheduled Provider: Location:[facility] Appointment Type:CV OV Appointment Date:08/30/2022 02:15:00 PM Scheduled Provider:MAURY CASTELLANOS MD Location:[facility] Appointment Type:CTS OV Post Op Follow Up Future Scheduled Tests Laboratory* Basic Metabolic Panel 07/17/22 * Complete Blood Count 07/17/22 Radiology* XR Chest 2 Views (PA & Lateral) 08/30/22 [facility] Evaluation + Plan note Future Appointments Appointment Date:01/05/2023 09:30:00 AM Scheduled Provider: Location:[facility] Appointment Type:ACC POC Established Patient Future Scheduled Tests Laboratory* Basic Metabolic Panel 07/17/22 * Complete Blood Count 07/17/22 * Complete Blood Count 08/09/22 * Complete Metabolic Panel 08/09/22 [facility] Evaluation + Plan note Future Appointments Appointment Date:03/25/2023 10:00:00 AM Scheduled Provider: Location:[facility] Appointment Type:ACC POC Established Patient Appointment Date:03/25/2023 10:30:00 AM Scheduled Provider: Location:[facility] Appointment Type:CV OV Future Scheduled Tests Laboratory* Basic Metabolic Panel 07/17/22 * Complete Blood Count 07/17/22 * Complete Blood Count 08/09/22 * Complete Metabolic Panel 08/09/22 [facility] Evaluation + Plan note Future Appointments Appointment Date:04/21/2023 10:00:00 AM Scheduled Provider: Location:[facility] Appointment Type:ACC POC Established Patient Future Scheduled Tests Laboratory* Basic Metabolic Panel 07/17/22 * Basic Metabolic Panel 04/15/23 * Complete Blood Count 07/17/22 * Complete Blood Count 08/09/22 * Complete Blood Count 04/15/23 * Complete Metabolic Panel 08/09/22 [facility] Evaluation + Plan note Future Appointments Appointment Date:04/21/2023 10:00:00 AM Scheduled Provider: Location:[facility] Appointment Type:ACC POC Established Patient Appointment Date:05/27/2023 10:30:00 AM Scheduled Provider: Location:[facility] Appointment Type:CV Hospital Follow Up Future Scheduled Tests Laboratory* Basic Metabolic Panel 07/17/22 * Basic Metabolic Panel 04/15/23 * Complete Blood Count 07/17/22 * Complete Blood Count 08/09/22 * Complete Blood Count 04/15/23 * Complete Metabolic Panel 08/09/22 [facility] Evaluation note* Diagnosis Onset Date Resolution Status Abrasion of left ring finger acute Chronic anticoagulation acut e Contusion of face acute Multiple falls acute Unsteady gait acute 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 I would suggest doubling your Coumadin dose the next 3 doses. You need to have this rechecked next week. I would also recommend you see your doctor next week to discuss your hospitalization and this visit. If you continue to have episodes of hypotension further medications may need to be changed. As discussed with your episodes of Hypertension and hypotension makes her blood pressure very difficult to manage. 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.[facility] Work Phone: Progress note No data available for this section [facility] Reason for referral (narrative)No reason for referral information availableW[facility] Work Phone: Chief Complaint and Reason for Visit Chief Complaint DIZZINESS, FALLS, A FLUTTER Reason for Visit Abrasion of left rin g finger Chronic anticoagulation Contusion of face Multiple falls Unsteady gait 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, chronic Hypertension Chief Complaint RECURRENT FALLS RECURRENT FALLS RECURRENT FALLS RECURRENT FALLS RECURRENT FALLS RECURRENT FALLS Reason for Visit Abrasion of left rin g finger Chronic anticoagulation Contusion of face Multiple falls Unsteady gait 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, chronic Hypertension Chief Complaint RECURRENT FALLS RECURRENT FALLS RECURRENT FALLS RECURRENT FALLS RECURRENT FALLS RECURRENT FALLS HYPOTENSION Reason for Visit Abrasion of left rin g finger Chronic anticoagulation Contusion of face Multiple falls Unsteady gait 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, chronic Hypertension Chief Complaint Admit Date WEAKNESS December 30, 2023 9:29pm WEAKNESS January 17, 2024 11:18am Weakness January 17, 2024 12:10pm Weakness January 18, 2024 3:31pm syncope February 07, 2024 9:05am 48 HR HOLTER MONITOR February 07, 2024 1:02pm Dizziness (cardiology) February 06 1:31pm FALLING ([facility]) February 15, 2024 2: 58pm SCREENING April 05, 2024 4:44pm Reason for Visit Admit Date Generalized weakness January 17, 2024 11:18am Atrial fibrillation February 15, 2024 2: 58pm History of transcatheter aortic valve re placement (TAVR) February 15, 2024 2:58pm Hx of CABG February 15, 2024 2: 58pm Hyperlipidemia February 15, 2024 2: 58pm Renal artery stenosis February 15, 2024 2:58pm HTN (hypertension) February 15, 2024 2: 58pm Advance Directives No Advanced Directives Records Found Advance Directive Response Recorded Date/ Time Living Will No January 15 8:14pm Power of Caseworker Protective Services No January 15, 2023 8:14pm Advance Directive Response Recorded Date/ Time Living Will No January 15 11:40pm Power of Caseworker Protective Services No January 15, 2023 11:40pm Advance Directive Response Recorded Date/ Time Living Will No January 21 023 9:07am Power of Caseworker Protective Services No January 21, 2023 9:07am Advance Directive Response Recorded Date/ Time Living Will Yes December 29 024 10:34pm Power of Caseworker Protective Services Yes December 30, 2023 10:34pm Name of Medical Power of Caseworker Protective Services GURVINDER ABBASI December 30, 2023 10:34pm Living Will Yes January 16 1:37pm Power of Caseworker Protective Services Yes January 17, 2024 1:37pm Name of Medical Power of Caseworker Protective Services RICKY ABBASI January 17, 2024 1:37pm Living Will Yes February 06 10:10am Power of Caseworker Protective Services Yes February 07, 2024 10:10am Name of Medical Power of Caseworker Protective Services gurvinder February 07, 2024 10:10am Summary Purpose Family History Relationship Condition Age at Onset Recorded Date/T louis brother Malignant neoplasm Unknown Coronary artery disease Unknown Diabetes mellitus Unknown Cardiac disease Unknown mother Diabetes mellitus Unknown Hypertension Unknown father Hypertension Unknown Myocardial infarction Unknown son Hypertension Unknown No Family History Records Found Additional Source Comments Care Team (unrecognized sect ion and content) Care Team Personnel Name: Ariana Grinding Wheel Dresser Odilia PT Position: P3 Scheduling - Change Number Operator Advanced Member Role: Other Name: CHELITA GAMEZ APRN-PAD ASSEMBLER Position: P4 Advanced Practice Nurse Member Role: Primary Care Physician Address: Address: [address] [facility] [place] [address]- Name: MIKE KEARNEY MD Position: P4 Physician - Cardiology Member Role: Leadership Development Manager Address: Address: [address] [facility] [address] [place] [address] [place] [address]- Care Team Related Persons Name: NONE, NONE Patient Care team informatio n (unrecognized section and content) Team Status: Active Member Role Status Dates Dr. Mariann Trent MD Family Provider Active Dr. Mariann Trent MD Primary Care Provider Active Team Status: Active Member Role Status Dates Dr. Mariann Trent MD Primary Care Provider Active Dr. Johnathon Richardson DO Emergency Provider Active Dr. Eladio Almanza MD Admit Provider, Attending Prov ider Active Team Status: Active Member Role Status Dates Dr. Mariann Trent MD Primary Care Provider Active Dr. Johnathon Richardson DO Emergency Provider Active Dr. Eladio Almanza MD Admit Provider, Other Provider Active Dr. Axel Javier DO Attending Provider, Other Pro vider Active Team Status: Active Member Role Status Dates Dr. Mariann Trent MD Primary Care Provider Active Dr. Ozzy Santos MD Attending Provider Active Team Status: Active Member Role Status Dates Dr. Mariann Trent MD Primary Care Provider Active Dr. Inés Sierra MD Attending Provider Activ e Team Status: Active Member Role Status Dates Dr. Mariann Trent MD Primary Care Provider Active Dr. Johnathon Richardson , DO Emergency Provider Active Dr. Eladio Almanza MD Admit Provider, Other Provider Active Dr. Rosalva Ortez MD Attending Provider, Other Prov ider Active Dr. Axel Javier , DO Other Provider Active Team Status: Inactive Member Role Status Dates Dr. Mariann Trent MD Primary Care Provider Active Dr. Johnathon Richardson DO Emergency Provider Active Dr. Eladio Almanza MD Admit Provider, Other Provider Active Dr. Rosalva Ortez MD Attending Provider Active Dr. Axel Javier , DO Other Provider Active Team Status: Active Member Role Status Dates Dr. Mariann Trent MD Family Provider Active Chelita Gamez DATA CENTER ENGINEER, DATA CENTER ENGINEER-C Primary Care Provider Activ e Team Status: Active Member Role Status Dates Dr. Mariann Trent MD Primary Care Provider Active Dr. Ozzy Santos MD Attending Provider Active Dr. Eladio Almanza MD Referring Provider Active Team Status: Inactive Member Role Status Dates Dr. Tod Ghotra DO Emergency Provider Active Chelita Gamez DATA CENTER ENGINEER, DATA CENTER ENGINEER-C Primary Care Provider Activ e Team Status: Active Member Role Status Dates Savage Gilliam MD Primary Care Provider Active Team Status: Inactive Member Role Status Dates Savage Gilliam MD Primary Care Provider Active St art: December 23, 2023 End: December 23, 2023 Savage Gilliam MD Attending Provider Active Start : December 23, 2023 End: December 23, 2023 Team Status: Inactive Member Role Status Dates Savage Gilliam MD Primary Care Provider Active St art: December 30, 2023 End: December 31, 2023 Dr. Ava Good DO Attending Provider Active Start: December 30, 2023 End: December 31, 2023 Dr. Ava Good DO Referring Provider Active Start: December 30, 2023 End: December 31, 2023 Dr. Ava Good DO Emergency Provider Active Start: December 30, 2023 End: December 31, 2023 Team Status: Inactive Member Role Status Werner Gilliam MD Primary Care Provider Active St art: January 17, 2024 End: January 18, 2024 Dr. Jose Carrion DO Emergency Provider Active Start: January 17, 2024 End: January 18, 2024 Dr. Sukumar Eddy MD Admit Provider Active Start: January 17, 2024 End: January 18, 2024 Dr. Sukumar Eddy MD Attending Provider Active Start: January 17, 2024 End: January 18, 2024 Team Status: Active Member Role Status Werner Gilliam MD Primary Care Provider Active St art: January 17, 2024 Dr. Jose Carrion DO Emergency Provider Active Start: January 17, 2024 Dr. Sukumar Eddy MD Admit Provider Active Start: January 17, 2024 Dr. Sukumar Eddy MD Attending Provider Active Start: January 17, 2024 Dr. Sukumar Eddy MD Other Provider Active Start: January 17, 2024 Team Status: Active Member Role Status Werner Gilliam MD Primary Care Provider Active St art: January 18, 2024 Dr. Jose Carrion DO Emergency Provider Active Start: January 18, 2024 Dr. Sukumar Eddy MD Admit Provider Active Start: January 18, 2024 Dr. Sukumar Eddy MD Attending Provider Active Start: January 18, 2024 Dr. Sukumar Eddy MD Other Provider Active Start: January 18, 2024 Team Status: Inactive Member Role Status Werner Gilliam MD Primary Care Provider Active St art: February 07, 2024 End: February 07, 2024 Dr. Jacob Morgan DO Attending Provider Active Start: February 07, 2024 End: February 07, 2024 Dr. Jacob Morgan DO Emergency Provider Active Start: February 07, 2024 End: February 07, 2024 Team Status: Inactive Member Role Status Werner Gilliam MD Primary Care Provider Active St art: February 07, 2024 End: February 07, 2024 Dr. Jacob Morgan DO Attending Provider Active Start: February 07, 2024 End: February 07, 2024 Team Status: Active Member Role Status Werner Gilliam MD Primary Care Provider Active St art: February 07, 2024 Dr. Inés Sierra MD Attending Provider Activ e Start: February 07, 2024 Dr. Jacob Morgan DO Referring Provider Active Start: February 07, 2024 Team Status: Inactive Member Role Status Dates Savage Gilliam MD Primary Care Provider Active St art: February 15, 2024 End: February 15, 2024 Savage Gilliam MD Referring Provider Active Start : February 15, 2024 End: February 15, 2024 Dr. Kd Wolfe MD Attending Provider Active S tart: February 15, 2024 End: February 15, 2024 Team Status: Inactive Member Role Status Dates Savage Gilliam MD Primary Care Provider Active St art: April 05, 2024 End: April 05, 2024 Rob Lieberman DATA CENTER ENGINEER, DATA CENTER ENGINEER-C Attending Provider Active Start: April 05, 2024 End: April 05, 2024 Rob Lieberman DATA CENTER ENGINEER, DATA CENTER ENGINEER-C Referring Provider Active Start: April 05, 2024 End: April 05, 2024 INFORMATION SOURCE (unrecogn ized section and content) DATE CREATED AUTHOR 07/22/2023 [facility] ([place]) DATE CREATED AUTHOR AUTHOR'S ORGANIZ ATION 10/20/2024 [facility] FOR RECORDS PERTAINING TO PATIENTS WHO ARE OR HAVE BEEN ENROLLED IN A CHEMICAL DEPENDENCY/SUBSTANCEABUSE PROGRAM, SOME INFORMATION MAY BE OMITTED. This clinical summary was aggregated from multiple sources. Caution should be exercised in using it in the provision of clinical care. This summary normalizes information from multiple sources, and as a consequence, information in this document may materially change the coding, format and clinical context of patient data. In addition, data may be omitted in some cases. CLINICAL DECISIONS SHOULD BE BASED ON THE PRIMARY CLINICAL RECORDS. [facility]. provides no warranty or guarantee of the accuracy or completeness of information in this document.
[2024-10-23 01:16] LABS: Barbiturate Urine NEGATIVE (< 200 ng/mL); Benzodiazepine Urine NEGATIVE (< 200 ng/mL); PCP Urine NEGATIVE (< 25 ng/mL); THC Urine NEGATIVE (< 50 ng/mL)
[2024-10-23 01:17] LABS: AST(SGOT) 22 U/L (<=31); Alanine Aminotransfer ALT/SGPT 17 U/L (<=34); Albumin, Serum 4.0 g/dL (3.4-4.8); Alkaline Phosphatase 71 U/L (35-104); Bilirubin, Direct 0.13 mg/dL (0.00-0.30); Globulin 2.2 g/dL (2.2-4.2)
--- NOTE | 2024-10-23 01:50 | ECHOD_ITS ---
Reason For Study Reason For Study: TIA/CVA Procedure This was a 2D Doppler, Color Flow transthoracic echocardiogram. Exam performed portable in patient room. Left Ventricle Normal LV size. Severe concentric left ventricular hypertrophy. Left ventricular systolic function is normal. The left ventricular ejection fraction is 60 %. At least stage 1 diastolic dysfunction. Right Ventricle Normal RV size. Normal systolic function. Atria The left atrium is severely enlarged. The right atrium is mildly enlarged. Mitral Valve Bileaflet diffuse mitral valve thickening. Moderate mitral annular calcification. Mean transmitral valve gradient 5 mmHg. Mild mitral valve stenosis. Mild (1+) mitral valve insufficiency. Tricuspid Valve Normal tricuspid valve. Mild (1+) tricuspid valve insufficiency. Pulmonary artery systolic pressure is 17 mmHg. Aortic Valve Peak aortic valve gradient 25 mmHg. Mean aortic valve gradient 15 mmHg. Stable appearing bioprosthetic aortic valve apparatus. Pulmonic Valve Normal pulmonic valve. Trivial pulmonic valve insufficiency. Great Vessels Mildly dilated aortic root. Pericardium/Pleural No pericardial effusion. MMode/2D Measurements & Calculations LVIDd: 3.6 cm IVSd: 1.9 cm LVOT diam: 1.9 cm LVIDs: 2.3 cm LVPWd: 1.8 cm LVOT area: 2.9 cm2 RVDd: 3.2 cm FS: 37.1 % Ao root diam: 4.2 cm LAV(MOD-bp): 81.3 ml LVAd ap4: 21.5 cm2 LAV(MOD-bp) Indexed: 54.2 ml/m2 LVLd ap4: 7.1 cm LAV(MOD-sp2): 81.3 ml EDV(MOD-sp4): 53.0 ml LAV(MOD-sp4): 82.2 ml EDV(sp4-el): 55.4 ml LVAs ap4: 11.2 cm2 LVLs ap4: 6.6 cm ESV(MOD-sp4): 15.6 ml ESV(sp4-el): 16.2 ml EF(MOD-sp4): 70.6 % EF(sp4-el): 70.8 % SV(MOD-sp4): 37.4 ml SV(sp4-el): 39.2 ml LA A4 area: 26.0 cm2 SI(MOD-sp4): 25.0 ml/m2 LA dimension(2D): 5.1 cm RA A4 area: 15.2 cm2 Doppler Measurements & Calculations MV E max lorena: 160.0 cm/sec MV V2 max: 187.6 cm/sec Ao V2 max: 250.7 cm/sec MV max P.1 mmHg Ao max P.2 mmHg MV V2 mean: 97.5 cm/sec Ao V2 mean: 182.7 cm/sec MV mean P.7 mmHg Ao mean P.9 mmHg MV V2 VTI: 56.6 cm Ao V2 VTI: 43.2 cm AV (velocity ratio): 0.50 MVA(VTI): 1.1 cm2 ORESTES(I,D): 1.4 cm2 ORESTES(V,D): 1.3 cm2 LV V1 max: 111.6 cm/sec SV(LVOT): 62.3 ml PA V2 max: 102.1 cm/sec LV V1 max P.0 mmHg PA V2 mean: 68.1 cm/sec LV V1 mean P.4 mmHg LV V1 mean: 70.4 cm/sec LV V1 VTI: 21.6 cm TR max lorena: 186.4 cm/sec TR max P.9 mmHg ECHO/Echo Complete Interpretation Summary The left ventricular ejection fraction is 60 %. Severe concentric left ventricular hypertrophy. The left atrium is severely enlarged. The right atrium is mildly enlarged. Mild mitral valve stenosis. Mild (1+) mitral valve insufficiency. Mild (1+) tricuspid valve insufficiency. Stable appearing bioprosthetic aortic valve apparatus. Mildly dilated aortic root. Ordering Physician: Forrest Bonilla Performed By: Alfredo Guadalupe RCS
[2024-10-23 05:47] LABS: Hematocrit 38.8 % (37-47); Hemoglobin 13.4 g/dL (12.0-15.0); Immature Granulocytes Count 0.020 X10^3/uL (0.0-0.0); Mean Corp Hgb Conc 34.5 g/dL (32-36); Mean Corpuscular Volume 93.9 fL (81-99); Mean Platelet Vol. 9.9 fl (6.2-12.0); NRBC Flagged by Analyzer 0 % (0-5); Platelet Count 175 K/mm3 (150-450); RBC Distribution Width CV 12.8 % (11.6-14.6); RBC Distribution Width SD 44.3 fl (35.1-43.9); Red Blood Count 4.13 M/mm3 (4.2-5.4); White Blood Count 6.5 K/mm3 (4.4-11.0)
--- NOTE | 2024-10-23 05:55 | MRI_ITS ---
PROCEDURE: MRA HEAD ONLY WITHOUT CONTRAST; BRAIN W/WO CONTRAST; MRA NECK WITH AND W/O CONTRAST 10/23/2024 REASON FOR EXAM: STROKE COMPARISON: CT head 10/22/2024. CTA head/neck 02/11/2023. TECHNIQUE: Procedure Code: MRIMRAH; MRIBRWW; MRIMRANWWOC Modality: MR Procedure: MRA HEAD ONLY WITHOUT CONTRAST; BRAIN W/WO CONTRAST; MRA NECK WITH AND W/O CONTRAST Multiplanar and multisequential MRI of the brain was performed without and with IV gadolinium based contrast. Noncontrast [id number] MR angiographic images of the head and neck were obtained. Multiplanar 3D/MIP post processing was performed. 11 mL of Clariscan IV contrast was used. 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 There is a small focus of subtle increased diffusion restriction in the posterior limb of left internal capsule (DWI sequence image 14) which may be a small focus of subacute lacunar infarct. Otherwise no areas of recent infarct are present. Advanced chronic small-vessel ischemic-gliotic changes elsewhere in the supratentorial white matter and with numerous old lacunar infarcts involving the bilateral lundberg radiata, bilateral basal ganglia, and bilateral cerebellar hemispheres. No intracranial hemorrhage or mass-effect. No intracranial mass lesion or pathologic enhancement. Mild-moderate generalized volume loss. Absent [place] ocular lenses. Well-aerated paranasal sinuses and mastoid air cells. MRA HEAD: Patent major intracranial arterial vasculature. No large vessel occlusion or high-grade flow-limiting stenosis. No saccular aneurysm or vascular malformation identified. Anatomic variant single left NATASHA A1 segment supplies the bilateral anterior cerebral arteries, with absent or hypoplastic right A1 segment. MRA NECK: Bilateral cervical carotid and vertebral arteries are patent, without evidence for high-grade flow-limiting stenosis. Dominant left vertebral artery supplies the basilar, with relatively hypoplastic right vertebral artery which terminates distally at PICA branches. Atherosclerotic plaque at the carotid artery bifurcations with mild less than 50% narrowing on the right, and more moderate roughly 50% stenosis on the left. MRI/MRA Head ONLY without Contrast IMPRESSION: 1. Possible subacute lacunar infarct posterior limb of left internal capsule. N o other areas of recent infarct. Chronic encephalomalacia and gliosis in the anterior right temporal lobe with no superi mposed acute component. Right temporal infarct is however new since 01/17/2024. 2. Advanced chronic small-vessel ischemic changes with numerous scattered old l acunar infarcts involving the bilateral lundberg radiata, basal ganglia, and cerebellar hemispheres. 3. No intracranial or cervical large vessel arterial occlusion or flow-limiting stenosis. 4. Mild right and more moderate left narrowing of the proximal cervical ICAs. Reading Location: [facility]
--- NOTE | 2024-10-23 05:55 | MRI_ITS ---
PROCEDURE: MRA HEAD ONLY WITHOUT CONTRAST; BRAIN W/WO CONTRAST; MRA NECK WITH AND W/O CONTRAST 10/23/2024 REASON FOR EXAM: STROKE COMPARISON: CT head 10/22/2024. CTA head/neck 02/11/2023. TECHNIQUE: Procedure Code: MRIMRAH; MRIBRWW; MRIMRANWWOC Modality: MR Procedure: MRA HEAD ONLY WITHOUT CONTRAST; BRAIN W/WO CONTRAST; MRA NECK WITH AND W/O CONTRAST Multiplanar and multisequential MRI of the brain was performed without and with IV gadolinium based contrast. Noncontrast [id number] MR angiographic images of the head and neck were obtained. Multiplanar 3D/MIP post processing was performed. 11 mL of Clariscan IV contrast was used. 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 There is a small focus of subtle increased diffusion restriction in the posterior limb of left internal capsule (DWI sequence image 14) which may be a small focus of subacute lacunar infarct. Otherwise no areas of recent infarct are present. Advanced chronic small-vessel ischemic-gliotic changes elsewhere in the supratentorial white matter and with numerous old lacunar infarcts involving the bilateral lundberg radiata, bilateral basal ganglia, and bilateral cerebellar hemispheres. No intracranial hemorrhage or mass-effect. No intracranial mass lesion or pathologic enhancement. Mild-moderate generalized volume loss. Absent [place] ocular lenses. Well-aerated paranasal sinuses and mastoid air cells. MRA HEAD: Patent major intracranial arterial vasculature. No large vessel occlusion or high-grade flow-limiting stenosis. No saccular aneurysm or vascular malformation identified. Anatomic variant single left NATASHA A1 segment supplies the bilateral anterior cerebral arteries, with absent or hypoplastic right A1 segment. MRA NECK: Bilateral cervical carotid and vertebral arteries are patent, without evidence for high-grade flow-limiting stenosis. Dominant left vertebral artery supplies the basilar, with relatively hypoplastic right vertebral artery which terminates distally at PICA branches. Atherosclerotic plaque at the carotid artery bifurcations with mild less than 50% narrowing on the right, and more moderate roughly 50% stenosis on the left. MRI/Brain W/WO Contrast IMPRESSION: 1. Possible subacute lacunar infarct posterior limb of left internal capsule. N o other areas of recent infarct. Chronic encephalomalacia and gliosis in the anterior right temporal lobe with no superi mposed acute component. Right temporal infarct is however new since 01/17/2024. 2. Advanced chronic small-vessel ischemic changes with numerous scattered old l acunar infarcts involving the bilateral lundberg radiata, basal ganglia, and cerebellar hemispheres. 3. No intracranial or cervical large vessel arterial occlusion or flow-limiting stenosis. 4. Mild right and more moderate left narrowing of the proximal cervical ICAs. Reading Location: [facility]
--- NOTE | 2024-10-23 05:55 | MRI_ITS ---
PROCEDURE: MRA HEAD ONLY WITHOUT CONTRAST; BRAIN W/WO CONTRAST; MRA NECK WITH AND W/O CONTRAST 10/23/2024 REASON FOR EXAM: STROKE COMPARISON: CT head 10/22/2024. CTA head/neck 02/11/2023. TECHNIQUE: Procedure Code: MRIMRAH; MRIBRWW; MRIMRANWWOC Modality: MR Procedure: MRA HEAD ONLY WITHOUT CONTRAST; BRAIN W/WO CONTRAST; MRA NECK WITH AND W/O CONTRAST Multiplanar and multisequential MRI of the brain was performed without and with IV gadolinium based contrast. Noncontrast [id number] MR angiographic images of the head and neck were obtained. Multiplanar 3D/MIP post processing was performed. 11 mL of Clariscan IV contrast was used. 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 There is a small focus of subtle increased diffusion restriction in the posterior limb of left internal capsule (DWI sequence image 14) which may be a small focus of subacute lacunar infarct. Otherwise no areas of recent infarct are present. Advanced chronic small-vessel ischemic-gliotic changes elsewhere in the supratentorial white matter and with numerous old lacunar infarcts involving the bilateral lundberg radiata, bilateral basal ganglia, and bilateral cerebellar hemispheres. No intracranial hemorrhage or mass-effect. No intracranial mass lesion or pathologic enhancement. Mild-moderate generalized volume loss. Absent [place] ocular lenses. Well-aerated paranasal sinuses and mastoid air cells. MRA HEAD: Patent major intracranial arterial vasculature. No large vessel occlusion or high-grade flow-limiting stenosis. No saccular aneurysm or vascular malformation identified. Anatomic variant single left NATASHA A1 segment supplies the bilateral anterior cerebral arteries, with absent or hypoplastic right A1 segment. MRA NECK: Bilateral cervical carotid and vertebral arteries are patent, without evidence for high-grade flow-limiting stenosis. Dominant left vertebral artery supplies the basilar, with relatively hypoplastic right vertebral artery which terminates distally at PICA branches. Atherosclerotic plaque at the carotid artery bifurcations with mild less than 50% narrowing on the right, and more moderate roughly 50% stenosis on the left. MRI/MRA Neck WITH and W/O Contrast IMPRESSION: 1. Possible subacute lacunar infarct posterior limb of left internal capsule. N o other areas of recent infarct. Chronic encephalomalacia and gliosis in the anterior right temporal lobe with no superi mposed acute component. Right temporal infarct is however new since 01/17/2024. 2. Advanced chronic small-vessel ischemic changes with numerous scattered old l acunar infarcts involving the bilateral lundberg radiata, basal ganglia, and cerebellar hemispheres. 3. No intracranial or cervical large vessel arterial occlusion or flow-limiting stenosis. 4. Mild right and more moderate left narrowing of the proximal cervical ICAs. Reading Location: [facility]
[2024-10-23 06:08] LABS: Prothrombin Time (Protime)PT. 16.7 SECONDS (11.7-14.9)
[2024-10-23 06:26] LABS: Anion Gap 11 (5-15); BUN 8 mg/dL (4-19); BUN/Creat Ratio 16.6 RATIO (10-20); Calcium,Total 9.0 mg/dL (7.6-11.0); Carbon Dioxide 24.4 mmol/L (21.0-32.0); Chloride 104 mmol/L (98-108); Cholesterol 124 mg/dL (<=200); Estimated Creatinine Clearance 45.85 ml/min (50-250); Glucose 108 mg/dL (70-99); Low Density Lipoprotein Calc. 53 mg/dL; Potassium 3.5 mmol/L (3.3-5.1); Triglycerides 148 mg/dL; Very Low Density Lipoprotein 30 mg/dL (5-40); cholesterol:hdl ratio screen 2.99
--- NOTE | 2024-10-23 09:39 | CASEMGMT ---
Social Work Primary Care Doctor: Dr. Gilliam Speciality doctors: Dr. Wolfe Insurance: [facility] Pharmacy: Patient utilizes [facility] in [place]. Advanced directives: Patient does not have an AD/LW. LNOK:. her 2 sons. One lives in [place] and the other in [place]. Marital/Social History: Patient is a . Patient has 2 sons. She has friends that help with taking her doctor appts. and grocery shopping. Her son in [place] also helps her. Living Situation: She lives alone in a trailer. There are 5 steps into the trailer. Her son lives 10 to 15 minutes away. ADL's/Prior level of functioning: Patient was independent prior. Transportation: Friends and her son help with transportation. Patient still drives but does not have a car. DME: 2 rollators, shower bench, cane assisted/home health history: none Support/Community Services: [facility] Mental Health: none Substance abuse history: none Assessment: Patient lives at home alone and she was independent with her ADL's. She receive support when needed from her friends and son. SW provided the patient food pantries, [employer] and meal delivery resources. Social Work to continue to follow. DANUTA Davis
--- NOTE | 2024-10-23 10:11 | CASEMGMT ---
Social Work Patient scored 1 on the PHQ 9. CARLYN Davis
--- NOTE | 2024-10-23 12:09 | STROKE.CONS ---
Assessment and Plan: Stroke Assessment/Plan MARK MARTIN is a 74 F with a history of afib on warfarin, AVR with bioprestethic valve, INR 1.2, presents with Left Leg weakness. brain CT shows 1. Acute infarct right anterior temporal lobe, #2 advanced small vessel ischemic changes with scattered foci of old lacunar infarcts, #3 no acute hemorrhage or mass effect. Neurological examination shows NIH 2, LLE drift. Neuroimaging shows R cortical stroke. Unclear timing, but new from previous. subtherapeutic INR. Obtain MRI. Can start AC, given prob > 4 days old. - Anti-Coag medication: Coumadin. She needs closer monitoring. She states she has been taking her medication, but low INR may state otherwise. - Occupational/ Physical therapy consults - NPO until swallow evaluation. IVF until able to take po - DVT prophylaxis with SCDs and heparin SQ - Vascular risk factor modification. The following are the recommended guidelines: LDL Goal < 70 Smoking Cessation Diabetes Management care home blood pressure control should achieve <130/80 mmHg. BP management should aim to achieve fdc contorl in a reasonable amount of time, taking into consideration the individual patient's requirements and characteristics. Weight Management: Goal for BMI is 18.5 -24.9 kg/m2 Alcohol: No more than 2 drinks/day for men or 1 drink/day for non- women - Promote lifestyle modification: weight control, physical activity, moderation of alcohol intake, moderate sodium intake. Followup with PCP in 1-2 weeks, and in Neurology clinic in 6-12 weeks HPI Consult Data Date of Consult: 10/23/24 HPI Narrative HPI Narrative: MARK MARTIN, is a 74 F who presents LLE weakness. According to the patient she has had this left leg weakness for the past 3 months and she has status post left knee arthroplasty as well. But talking with her more, she was leaning to left more yesterday so her son brought her in. When the ER physician when he was speaking with her son who says she had an episode of dizziness in the store and some facial drooping(laterality was not known) but that did not last very long. It is unclear when her last known well was since she has had this left leg weakness for the past 3 months. Patient does have significant past medical history of stroke 25 years ago approximately with no significant residual neurologic deficits. She also has a history of aortic valve replacement with bioprosthetic valve. Patient does continue to smoke and is on warfarin for A-fib. Patient is feeling better since arrival to the emergency room and has no current new neurologic deficits at this time. 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 Atrial fibrillation Rheumatic fever Mitral prolapse Right renal artery stenosis 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 Anemia Depression Rheumatoid arthritis GERD (gastroesophageal reflux disease) COPD (chronic obstructive pulmonary disease) Deafness in left ear Myocardial infarct Contusion of face Unsteady gait Abrasion of left ring finger Diabetes HTN (hypertension) Home Medications ?Medication ?Instructions ?Recorded ?Last Taken ?Type multivitamin (Daily Multi-Vitamin 1 tab PO DAILY 02/11/23 Unknown History tablet) aspirin 81 mg chewable tablet 81 mg PO BREAKFAST #1 TAB 02/13/23 Unknown Rx amlodipine 10 mg tablet 10 mg PO QDAY 01/19/24 Unknown History atorvastatin 40 mg tablet 40 mg PO QHS 02/15/24 Unknown History carbamazepine 200 mg tablet 400 mg PO Q12H 02/15/24 Unknown History valsartan 160 mg tablet 160 mg PO BID #180 tabs 04/08/24 Unknown Rx carvedilol 25 mg tablet 25 mg PO BID #180 tabs 06/13/24 Unknown Rx hydralazine 100 mg tablet 100 mg PO TID #270 TABLETS 06/14/24 Unknown Rx warfarin 4 mg tablet 4 mg PO DAILY 10/22/24 Unknown History Allergy/AdvReac Type Severity Reaction Status Date / Time mayonnaise Allergy Severe Anaphylaxis Verified 10/22/24 21:15 ibuprofen Allergy Rash Verified 10/22/24 21:15 naproxen (From Naprosyn) Allergy Rash Verified 10/22/24 21:15 codeine AdvReac Vertigo Verified 10/22/24 21:15 Family History Brother Cancer CAD (coronary artery disease) Diabetes Heart disease Mother Diabetes Hypertension Heart disease Father Hypertension Myocardial infarction Heart disease Son Hypertension Surgical History History of stapedectomy Hx of hernia repair Hx of total knee arthroplasty (02/21/20) Hx of CABG (07/09/22) S/P left knee arthroscopy Aortic valve replaced Social History Smoking Status: Light Smoker (<10/day) Tobacco: How many years used: 20 Vital Signs Vital Signs Vital Signs: 10/22/24 21:15 10/22/24 21:26 10/22/24 21:46 Temperature 98 F Temperature Source Temporal Pulse Rate 82 74 Pulse Strength Respiratory Rate 18 18 Respiratory Effort Normal Non-Labored Respiratory Depth Respiratory Pattern Normal Blood Pressure 145/100 H 139/94 H Blood Pressure Mean 115 109 Blood Pressure Source Blood Pressure Position Blood Pressure Location Pulse Ox 99 99 Oxygen Delivery Method Room Air Room Air 10/22/24 23:00 10/23/24 00:00 10/23/24 01:00 Temperature 98.2 F Temperature Source Pulse Rate 86 98 70 Pulse Strength Respiratory Rate 18 18 18 Respiratory Effort Respiratory Depth Respiratory Pattern Blood Pressure 167/91 H 165/102 H 147/96 H Blood Pressure Mean 116 123 113 Blood Pressure Source Blood Pressure Position Blood Pressure Location Pulse Ox 99 98 98 Oxygen Delivery Method Room Air Room Air 10/23/24 02:00 10/23/24 02:39 10/23/24 05:40 Temperature 98.1 F 98.3 F Temperature Source Oral Oral Pulse Rate 73 68 Pulse Strength Respiratory Rate 16 18 Respiratory Effort Normal Non-Labored Respiratory Depth Normal Respiratory Pattern Normal Blood Pressure 171/108 H 163/109 H Blood Pressure Mean 129 127 Blood Pressure Source Monitor Monitor Blood Pressure Position Semi-Fowlers Semi-Fowlers Blood Pressure Location Right Arm Right Arm Pulse Ox 98 96 Oxygen Delivery Method Room Air Room Air Room Air 10/23/24 07:55 10/23/24 07:58 10/23/24 09:00 Temperature 97.2 F L Temperature Source Temporal Pulse Rate 66 Pulse Strength Normal (2+) Respiratory Rate 18 Respiratory Effort Normal Non-Labored Respiratory Depth Normal Respiratory Pattern Normal Blood Pressure 163/113 H Blood Pressure Mean 129 Blood Pressure Source Monitor Blood Pressure Position Semi-Fowlers Blood Pressure Location Right Arm Pulse Ox 96 Oxygen Delivery Method Room Air Room Air Weight Weight: 53 kg Body Mass Index (BMI) 22.1 EEG Results Procedure Details EEG Procedure Details: MARK MARTIN is a 74 year old F with a past medical history of , who presents for evaluation of Electroencephalogram on DATE at TIME Lab / Micro Data 10/23/24 05:10 10/23/24 05:10 Labs: Laboratory Results - last 24 hr 10/22/24 21:45: WBC 5.7, RBC 4.20, Hgb 13.5, Hct 39.7, MCV 94.5, MCH 32.1 H, MCHC 34.0, RDW Std Deviation 43.9, RDW Coeff of [place]ena 12.7, Plt Count 177, MPV 9.9, Immature Gran % (Auto) 0.500, Neut % (Auto) 60.2, Lymph % (Auto) 28.7, [place] % (Auto) 9.3, Eos % (Auto) 0.3, Baso % (Auto) 1.0, Absolute Neuts (auto) 3.4, Absolute Lymphs (auto) 1.64, Nucleated RBC % 0, PT 15.4 H, INR 1.2, Sodium 138, Potassium 4.2, Chloride 104, Carbon Dioxide 23.9, Anion Gap 10, BUN 11, Creatinine 0.57 L, Estim Creat Clear Calc 45.85 L, Est GFR (MDRD) Non-Af 95, BUN/Creatinine Ratio 19.4, Glucose 131 H, Hemoglobin A1c 5.7, Calcium 9.1, Total Bilirubin 0.28, Direct Bilirubin 0.13, AST 22, ALT 17, Alkaline Phosphatase 71, Total Protein 6.2, Albumin 4.0, Globulin 2.2, TSH 1.400 10/22/24 23:35: Urine Opiates Screen NEGATIVE, U Buprenorphine Qual NEGATIVE, Ur Oxycodone Screen NEGATIVE, Urine Methadone Screen NEGATIVE, Urine Fentanyl Screen NEGATIVE, Ur Barbiturates Screen NEGATIVE, Ur Phencyclidine Scrn NEGATIVE, Ur Amphetamines Screen NEGATIVE, U Benzodiazepines Scrn NEGATIVE, Urine Cocaine Screen NEGATIVE, U Cannabinoids Screen NEGATIVE 10/23/24 05:10: WBC 6.5, RBC 4.13 L, Hgb 13.4, Hct 38.8, MCV 93.9, MCH 32.4 H, MCHC 34.5, RDW Std Deviation 44.3 H, RDW Coeff of [place] 12.8, Plt Count 175, MPV 9.9, Immature Gran % (Auto) 0.300, Neut % (Auto) 50.9, Lymph % (Auto) 39.7, [place] % (Auto) 7.4, Eos % (Auto) 0.6, Baso % (Auto) 1.1 H, Absolute Neuts (auto) 3.3, Absolute Lymphs (auto) 2.58, Nucleated RBC % 0, PT 16.7 H, INR 1.3, Sodium 140, Potassium 3.5, Chloride 104, Carbon Dioxide 24.4, Anion Gap 11, BUN 8, Creatinine 0.51 L, Estim Creat Clear Calc 45.85 L, Est GFR (MDRD) Non-Af 97, BUN/Creatinine Ratio 16.6, Glucose 108 H, Calcium 9.0, Triglycerides 148, Cholesterol 124, LDL Cholesterol, Calc 53, VLDL Cholesterol 30, HDL Cholesterol 42, Cholesterol/HDL Ratio 2.99 Rhythm Strip Rhythm Strip: A-fib Rate: 85 Ectopy: None Imaging Radiology Impression Brain CT 10/22/24 21:50 IMPRESSION: 1. Acute infarct involving the anterior right temporal lobe. 2. Advanced chronic small-vessel ischemic changes with numerous scattered foci of old lacunar infarcts in the bilateral cerebral and cerebellar hemispheres. 3. No acute hemorrhage, extra-axial collection, or mass-effect. Reading Location: [facility] Knee X-Ray 10/22/24 21:50 IMPRESSION: Intact left knee arthroplasty. Reading Location: [id number] Active Medications Active Medications Active Medications: Current Medications Generic Name Dose Route Start Last Admin Trade Name Freq PRN Reason Stop Dose Admin Amlodipine Besylate 10 mg 10/23/24 10:00 10/23/24 09:13 Amlodipine 10 Mg Tablet PO Not Given DAILY [facility] Protocol Carbamazepine 400 mg 10/23/24 06:00 10/23/24 05:35 Carbamazepine 200 Mg Tablet PO 400 mg Q12H ERIN Administration Enoxaparin Sodium 50 mg 10/23/24 06:00 10/23/24 05:35 Enoxaparin 60 Mg/0.6 Ml Syringe SC 50 mg Q12@0600,1800 ERIN Administration Hydralazine HCl 5 mg 10/23/24 02:00 Hydralazine 20 Mg/Ml Vial IV 10/24/24 02:01 Q30M PRN maintain BP parameters with HR <60 Sodium Chloride 250 mls @ 15 mls/hr 10/23/24 01:43 IV .[id number] PRN Saline Flush Sodium Chloride 250 mls @ 15 mls/hr 10/23/24 01:43 IV .[id number] PRN Additional IVPB Infusion Labetalol HCl 10 - 20 mg 10/23/24 02:00 Labetalol 20 Mg/4 Ml Vial IV 10/24/24 02:01 Q10M PRN PRN maintain BP parameters with HR >/=60 Multivitamins 1 tablet 10/23/24 08:00 10/23/24 09:12 Multivitamins,Therapeutic Tablet PO 1 tablet DAILYCM ERIN Administration Sodium Chloride 10 - 40 ml 10/23/24 01:43 0.9% Saline Lock 10 Ml Syringe IV UD PRN SALINE FLUSH Warfarin Sodium 4 mg 10/23/24 17:00 Warfarin (Pbkc) 4 Mg Tablet PO DAILY@[facility] NIHSS NIHSS Nursing Documentation NIHSS Nursing Documentation: NIH Stroke Scale Start: 10/22/24 21:28 Freq: Status: Discharge Protocol: Activity Type Activity Date Activity User E-sign Co-sign Detail Recorded Client Recorded Date Recorded By Document 10/22/24 21:29 [facility] [id number] 10/22/24 21:35 [facility] 10/22/24 21:29 NIH Stroke Scale [NIHSS] A score of 0 is normal or asymptomatic . Total possible score is 42. Inpatient: RN or Physician to activate a stroke alert for onset of new stroke symptoms or with NIHSS increase >/= 3 points. Following change in neurological status, NIHSS will be performed per physician order or more frequently PRN. -1a. Level of Consciousness 0 - Alert; keenly responsive -1b. LOC Questions 0 - Answers BOTH questions correctly -1c. LOC Commands 0 - Performs BOTH tasks correctly -2. Best Gaze 0 - Normal -3. Visual 0 - No visual loss -4. Facial Palsy 0 - Normal symmetrical movements -5a. Left Arm 0 - No drift; arm holds 90 ( or 45) degrees for full 10 seconds -5b. Right Arm 0 - No drift; arm holds 90 ( or 45) degrees for full 10 seconds -6a. Left Leg 0 - No drift; leg holds 30- degree position for full 5 seconds -6b. Right Leg 0 - No drift; leg holds 30- degree position for full 5 seconds -7. Limb Ataxia 0 - Absent -8. Sensory 0 - Normal; no sensory loss -9. Best Language 0 - No aphasia; normal -10. Dysarthria 0 - Normal -11. Extinction and Inattention 0 - No abnormality -Total 0 Query Text:A score of 0 is normal or asymptomatic. Total possible score is 42 . ED: Notify Physician for NIHSS increase by > / = 3 points. Inpatient: RN or Physician to activate a stroke alert for NIHSS increase of > / = 3 points. 10/22/24 21:30 ED Nursing Note by Sarah Valente Pt struggled to lift the left leg as high as the right leg, however the patient reports it is because it feels weak, not painful. The patient states she has been having issues with this knee for the past few months. And the patient reports a previous stroke 20 years ago that affected her left side but it returned to baseline afterwards. The patient does state, it feels cold from my knee to my foot and I have been trying to follow up with Dr. Rossi for my knee replacement a few years ago. Initialized on 10/22/24 21:30 - END OF NOTE NIHSS: Ischemic Stroke/TIA Start: 10/23/24 01:42 Text: For PCU Patients: NIH and Neuro Check every 4 Status: Active hours, PRN and with change in RN caregiver. Freq: [id number] Protocol: Activity Type Activity Date Activity User E-sign Co-sign Detail Recorded Client Recorded Date Recorded By Document 10/23/24 07:56 TEDDY [id number] 10/23/24 08:01 TEDDY 10/23/24 07:56 -1a. Level of Consciousness 0 - Alert; keenly responsive -1b. LOC Questions 1 - Answers ONE question correctly -1c. LOC Commands 0 - Performs BOTH tasks correctly -2. Best Gaze 0 - Normal -3. Visual 0 - No visual loss -4. Facial Palsy 0 - Normal symmetrical movements -5a. Left Arm 0 - No drift; arm holds 90 ( or 45) degrees for full 10 seconds -5b. Right Arm 0 - No drift; arm holds 90 ( or 45) degrees for full 10 seconds -6a. Left Leg 0 - No drift; leg holds 30- degree position for full 5 seconds -6b. Right Leg 0 - No drift; leg holds 30- degree position for full 5 seconds -7. Limb Ataxia 0 - Absent -8. Sensory 0 - Normal; no sensory loss -9. Best Language 0 - No aphasia; normal -10. Dysarthria 0 - Normal -11. Extinction and Inattention 0 - No abnormality -Total 1 Query Text:A score of 0 is normal or asymptomatic. Total possible score is 42 . ED: Notify Physician for NIHSS increase by > / = 3 points. Inpatient: RN or Physician to activate a stroke alert for NIHSS increase of > / = 3 points. Coma Scale [Assess] -Eye Opening Spontaneous -Motor Obeys Commands -Verbal Oriented [Total] -Coma Scale Total 15
--- NOTE | 2024-10-23 15:32 | CASEMGMT ---
Social Work SW spoke with the son Sherwin and his girlfriend in the patients room. Patient was not in the room due to having n MRI. SW provided the son a list of?HH providers including quality and resource use data and consistent with the patient's preferred geographic region, medical needs, and insurance network was created in [facility] Guide.?This list was provided to the son and patient for review. SW gave the son information on getting a medical alert button for his mom. The son Chito reported he wants his mother to go to an [facility]. He reported his mom does not want to go to [facility]. He reported she has fallen at home. He reported his daughter is going to stay with his mom at discharge for a week. MARGO completed POA paperwork with the patient earlier in the day. CARLYN Naranjo
--- NOTE | 2024-10-23 16:08 | PCM.PROGNOTE ---
Subjective Subjective Patient seen and examined with the nurse by her bedside. She still complained of some weakness in her RUE and LLE. She denied any dizziness, lightheadedness, nausea, vomiting or any other symptoms. Review of systems is otherwise negative. Her INR remains subtherapeutic. She claims compliance with her Coumadin. Objective Data Objective Data Vital Signs: Vital Signs Temp Pulse Resp BP Pulse Ox O2 Del Method 97.8 F 71 18 166/115 H 97 Room Air 10/23/24 15:45 10/23/24 15:45 10/23/24 15:45 10/23/24 15:45 10/23/24 15:45 10/23/24 15:45 Oxygen Delivery Method Room Air Weight: 116 lb 13.52 oz Body Mass Index (BMI) 22.1 Intake & Output: Intake and Output for Last 24 Hours 10/21/24 10/22/24 10/23/24 23:59 23:59 23:59 Intake Total 100 / 100 Balance 100 / 100 Lab / Micro Data 10/23/24 05:10 10/23/24 05:10 Labs: Laboratory Results - last 24 hr 10/22/24 21:45: WBC 5.7, RBC 4.20, Hgb 13.5, Hct 39.7, MCV 94.5, MCH 32.1 H, MCHC 34.0, RDW Std Deviation 43.9, RDW Coeff of [place]ena 12.7, Plt Count 177, MPV 9.9, Immature Gran % (Auto) 0.500, Neut % (Auto) 60.2, Lymph % (Auto) 28.7, [place] % (Auto) 9.3, Eos % (Auto) 0.3, Baso % (Auto) 1.0, Absolute Neuts (auto) 3.4, Absolute Lymphs (auto) 1.64, Nucleated RBC % 0, PT 15.4 H, INR 1.2, Sodium 138, Potassium 4.2, Chloride 104, Carbon Dioxide 23.9, Anion Gap 10, BUN 11, Creatinine 0.57 L, Estim Creat Clear Calc 45.85 L, Est GFR (MDRD) Non-Af 95, BUN/Creatinine Ratio 19.4, Glucose 131 H, Hemoglobin A1c 5.7, Calcium 9.1, Total Bilirubin 0.28, Direct Bilirubin 0.13, AST 22, ALT 17, Alkaline Phosphatase 71, Total Protein 6.2, Albumin 4.0, Globulin 2.2, TSH 1.400 10/22/24 23:35: Urine Opiates Screen NEGATIVE, U Buprenorphine Qual NEGATIVE, Ur Oxycodone Screen NEGATIVE, Urine Methadone Screen NEGATIVE, Urine Fentanyl Screen NEGATIVE, Ur Barbiturates Screen NEGATIVE, Ur Phencyclidine Scrn NEGATIVE, Ur Amphetamines Screen NEGATIVE, U Benzodiazepines Scrn NEGATIVE, Urine Cocaine Screen NEGATIVE, U Cannabinoids Screen NEGATIVE 10/23/24 05:10: WBC 6.5, RBC 4.13 L, Hgb 13.4, Hct 38.8, MCV 93.9, MCH 32.4 H, MCHC 34.5, RDW Std Deviation 44.3 H, RDW Coeff of [place]ena 12.8, Plt Count 175, MPV 9.9, Immature Gran % (Auto) 0.300, Neut % (Auto) 50.9, Lymph % (Auto) 39.7, [place] % (Auto) 7.4, Eos % (Auto) 0.6, Baso % (Auto) 1.1 H, Absolute Neuts (auto) 3.3, Absolute Lymphs (auto) 2.58, Nucleated RBC % 0, PT 16.7 H, INR 1.3, Sodium 140, Potassium 3.5, Chloride 104, Carbon Dioxide 24.4, Anion Gap 11, BUN 8, Creatinine 0.51 L, Estim Creat Clear Calc 45.85 L, Est GFR (MDRD) Non-Af 97, BUN/Creatinine Ratio 16.6, Glucose 108 H, Calcium 9.0, Triglycerides 148, Cholesterol 124, LDL Cholesterol, Calc 53, VLDL Cholesterol 30, HDL Cholesterol 42, Cholesterol/HDL Ratio 2.99 Radiography Diagnostic Testing: Radiology Impression Brain CT 10/22/24 21:50 IMPRESSION: 1. Acute infarct involving the anterior right temporal lobe. 2. Advanced chronic small-vessel ischemic changes with numerous scattered foci of old lacunar infarcts in the bilateral cerebral and cerebellar hemispheres. 3. No acute hemorrhage, extra-axial collection, or mass-effect. Reading Location: [facility] Knee X-Ray 10/22/24 21:50 IMPRESSION: Intact left knee arthroplasty. Reading Location: [facility] Echocardiogram 10/23/24 01:50 Interpretation Summary The left ventricular ejection fraction is 60 %. Severe concentric left ventricular hypertrophy. The left atrium is severely enlarged. The right atrium is mildly enlarged. Mild mitral valve stenosis. Mild (1+) mitral valve insufficiency. Mild (1+) tricuspid valve insufficiency. Stable appearing bioprosthetic aortic valve apparatus. Mildly dilated aortic root. Ordering Physician: Forrest Bonilla Performed By: Alfredo Guadalupe RCS Rhythm Strip Rhythm Strip: A-fib Rate: 85 Ectopy: None Physical Exam Const alert, oriented x3 and no apparent distress General Appearance: cooperative and well developed HEENT normocephalic, head/scalp atraumatic, moist oral mucous membranes and oropharynx normal Eyes EOMs intact bilaterally Neck supple and no JVD Lymph Lymphatic: no lymphedema noted Resp normal respiratory effort, normal air movement and clear to auscultation bilaterally Cardio regular rate, regular rhythm, S1 normal heart sound and S2 normal heart sound GI normal to inspection, nondistended, normoactive bowel sounds, soft to palpation, non-tender and non-distended Extremity normal capillary refill, no clubbing, cyanosis or edema and no calf tenderness General Extremity: no tenderness to palpation of joints or extremities Skin General Skin Exam: no breakdown Neuro CN's II-XII intact bilaterally, no focal motor deficits and no sensory deficits noted Motor Exam: strength 5/5 throughout Psych thought process normal and cooperative Appearance: appropriate Assessment & Plan Assessment/Plan (1) Subtherapeutic anticoagulation: (2) Acute ischemic stroke: PLAN: Plan #Acute ischemic CVA Admitted with a complaint of left lower extremity weakness and right upper extremity weakness. CT of the brain that showed acute infarct of the right anterior temporal lobe and evidence of old lacunar infarcts. MRI of the brain done, read is pending Has a history of A-fib and is on Coumadin. She claims compliance but INR is therapeutic and is 1.2 today. Will bridge with Lovenox and continue Coumadin. Counseled on compliance. PT OT on board. Fall precautions. BP meds held for the first 24 hours to allow for permissive hypertension PT and high intensity statin. 2D echo showed severe left ventricular hypertrophy with EF of 60% and normal left ventricular systolic function with stage I diastolic dysfunction. Also had mild mitral valve stenosis and left atrium is severely enlarged. #Hyperlipidemia: On high intensity statin #Atrial fibrillation: On carvedilol. On Coumadin with subtherapeutic INR. Coumadin being bridged with Lovenox #Chronic left lower extremity weakness: Does have a history of left knee arthroplasty and has had the weakness since then. PT OT on board. #Depression: On carbamazepine #Nicotine dependence: Counseled to quit #Hypertension: On amlodipine and losartan as well as carvedilol #COPD: Not in exacerbation. Breathing treatments with bronchodilators. DVT prophylaxis: anticoagulated as stated above on coumadin with lovenox bridging. INR today is 1.2. Charges/Coding Visit Charges Inpatient E&M: 29773 Subs Hosp L2
[2024-10-23] MEDS: Warfarin (PBKC) 4 MG Tablet PO (16:50)
[2024-10-23] MEDS: Warfarin (PBKC) 5 MG Tablet PO (16:50)
[2024-10-24] VITALS (10 sets, daily range): BP systolic 144–178; BP diastolic 91–138; PULSE 67–78; RESP 14–18; TEMP 36.4–36.9; O2SAT 94–99; BMI 22.1
[2024-10-24 06:14] LABS: Hematocrit 41.2 % (37-47); Hemoglobin 14.8 g/dL (12.0-15.0); Immature Granulocytes Count 0.030 X10^3/uL (0.0-0.0); Mean Corp Hgb Conc 35.9 g/dL (32-36); Mean Corpuscular Volume 91.4 fL (81-99); Mean Platelet Vol. 10.1 fl (6.2-12.0); NRBC Flagged by Analyzer 0 % (0-5); Platelet Count 194 K/mm3 (150-450); RBC Distribution Width CV 12.7 % (11.6-14.6); RBC Distribution Width SD 42.6 fl (35.1-43.9); Red Blood Count 4.51 M/mm3 (4.2-5.4); White Blood Count 7.4 K/mm3 (4.4-11.0)
[2024-10-24 06:17] LABS: Prothrombin Time (Protime)PT. 15.9 SECONDS (11.7-14.9)
[2024-10-24 06:40] LABS: Anion Gap 14 (5-15); BUN 12 mg/dL (4-19); BUN/Creat Ratio 25.8 RATIO (10-20); Calcium,Total 9.2 mg/dL (7.6-11.0); Carbon Dioxide 23.3 mmol/L (21.0-32.0); Chloride 105 mmol/L (98-108); Estimated Creatinine Clearance 45.85 ml/min (50-250); Glucose 119 mg/dL (70-99); Potassium 3.3 mmol/L (3.3-5.1)
--- NOTE | 2024-10-24 10:26 | PCM.PROGNOTE ---
Subjective Subjective Patient seen and examined. She had no active complaints underwent uneventful night. Extremity weakness is improving. Review of systems otherwise negative. INR still subtherapeutic today Objective Data Objective Data Vital Signs: Vital Signs Temp Pulse Resp BP Pulse Ox O2 Del Method 97.7 F L 67 14 144/121 H 95 Room Air 10/24/24 08:58 10/24/24 09:00 10/24/24 08:58 10/24/24 09:00 10/24/24 08:59 10/24/24 08:59 Oxygen Delivery Method Room Air Weight: 116 lb 13.52 oz Body Mass Index (BMI) 22.1 Intake & Output: Intake and Output for Last 24 Hours 10/22/24 10/23/24 10/24/24 23:59 23:59 23:59 Intake Total 100 / 100 Balance 100 / 100 Lab / Micro Data 10/24/24 05:28 10/24/24 05:28 Labs: Laboratory Results - last 24 hr 10/24/24 05:28: WBC 7.4, RBC 4.51, Hgb 14.8, Hct 41.2, MCV 91.4, MCH 32.8 H, MCHC 35.9, RDW Std Deviation 42.6, RDW Coeff of Geena 12.7, Plt Count 194, MPV 10.1, Immature Gran % (Auto) 0.400, Neut % (Auto) 59.6, Lymph % (Auto) 29.9, [place] % (Auto) 8.6, Eos % (Auto) 0.4, Baso % (Auto) 1.1 H, Absolute Neuts (auto) 4.4, Absolute Lymphs (auto) 2.20, Nucleated RBC % 0, PT 15.9 H, INR 1.3, Sodium 142, Potassium 3.3, Chloride 105, Carbon Dioxide 23.3, Anion Gap 14, BUN 12, Creatinine 0.48 L, Estim Creat Clear Calc 45.85 L, Est GFR (MDRD) Non-Af 99, BUN/Creatinine Ratio 25.8 H, Glucose 119 H, Calcium 9.2 Radiography Diagnostic Testing: Radiology Impression Echocardiogram 10/23/24 01:50 Interpretation Summary The left ventricular ejection fraction is 60 %. Severe concentric left ventricular hypertrophy. The left atrium is severely enlarged. The right atrium is mildly enlarged. Mild mitral valve stenosis. Mild (1+) mitral valve insufficiency. Mild (1+) tricuspid valve insufficiency. Stable appearing bioprosthetic aortic valve apparatus. Mildly dilated aortic root. Ordering Physician: Forrest Bonilla Performed By: Alfredo Guadalupe RCS Brain MRI 10/23/24 05:55 IMPRESSION: 1. Possible subacute lacunar infarct posterior limb of left internal capsule. No other areas of recent infarct. Chronic encephalomalacia and gliosis in the anterior right temporal lobe with no superimposed acute component. Right temporal infarct is however new since 01/17/2024. 2. Advanced chronic small-vessel ischemic changes with numerous scattered old lacunar infarcts involving the bilateral lundberg radiata, basal ganglia, and cerebellar hemispheres. 3. No intracranial or cervical large vessel arterial occlusion or flow-limiting stenosis. 4. Mild right and more moderate left narrowing of the proximal cervical ICAs. Reading Location: [facility] Head MRA 10/23/24 05:55 IMPRESSION: 1. Possible subacute lacunar infarct posterior limb of left internal capsule. No other areas of recent infarct. Chronic encephalomalacia and gliosis in the anterior right temporal lobe with no superimposed acute component. Right temporal infarct is however new since 01/17/2024. 2. Advanced chronic small-vessel ischemic changes with numerous scattered old lacunar infarcts involving the bilateral lundberg radiata, basal ganglia, and cerebellar hemispheres. 3. No intracranial or cervical large vessel arterial occlusion or flow-limiting stenosis. 4. Mild right and more moderate left narrowing of the proximal cervical ICAs. Reading Location: [facility] Neck MRA 10/23/24 05:55 IMPRESSION: 1. Possible subacute lacunar infarct posterior limb of left internal capsule. No other areas of recent infarct. Chronic encephalomalacia and gliosis in the anterior right temporal lobe with no superimposed acute component. Right temporal infarct is however new since 01/17/2024. 2. Advanced chronic small-vessel ischemic changes with numerous scattered old lacunar infarcts involving the bilateral lundberg radiata, basal ganglia, and cerebellar hemispheres. 3. No intracranial or cervical large vessel arterial occlusion or flow-limiting stenosis. 4. Mild right and more moderate left narrowing of the proximal cervical ICAs. Reading Location: [facility] Rhythm Strip Rhythm Strip: A-fib Rate: 85 Ectopy: None Physical Exam Const alert, oriented x3, no apparent distress and well nourished General Appearance: cooperative and well developed HEENT normocephalic, head/scalp atraumatic, moist oral mucous membranes and oropharynx normal Eyes PERRL and EOMs intact bilaterally Neck no lymphadenopathy, supple and no JVD Lymph Lymphatic: no lymphadenopathy noted and no lymphedema noted Resp normal respiratory effort, normal air movement and clear to auscultation bilaterally Cardio regular rate, regular rhythm, S1 normal heart sound and S2 normal heart sound GI normal to inspection, nondistended, normoactive bowel sounds and soft to palpation Extremity normal capillary refill, no clubbing, cyanosis or edema and no calf tenderness General Extremity: no tenderness to palpation of joints or extremities Skin General Skin Exam: no breakdown and turgor normal Neuro CN's II-XII intact bilaterally and no sensory deficits noted Neuro Narrative: Slight weakness in left leg as compared to right Motor Exam: strength 5/5 throughout Psych thought process normal, cooperative and affect normal Appearance: appropriate Assessment & Plan Assessment/Plan (1) Subtherapeutic anticoagulation: (2) Acute ischemic stroke: PLAN: Plan #Acute ischemic CVA Admitted with a complaint of left lower extremity weakness and right upper extremity weakness. CT of the brain that showed acute infarct of the right anterior temporal lobe and evidence of old lacunar infarcts. MRI of the brain done showed possible subacute lacunar infarct of the posterior limb of the left internal capsule with chronic encephalomalacia and gliosis in the anterior right temporal lobe with no superimposed acute component right temporal infarct being new since 01/17/2024 Has a history of A-fib and is on Coumadin. She claims compliance but INR is therapeutic and is 1.3 today. Being bridged with Lovenox; continue Coumadin. Counseled on compliance. PT OT on board. Fall precautions. BP meds held for the first 24 hours to allow for permissive hypertension PT/OT on board and high intensity statin. 2D echo showed severe left ventricular hypertrophy with EF of 60% and normal left ventricular systolic function with stage I diastolic dysfunction. Also had mild mitral valve stenosis and left atrium is severely enlarged. #Hyperlipidemia: On high intensity statin #Atrial fibrillation: On carvedilol. On Coumadin with subtherapeutic INR. INR is 1.3 today. Coumadin being bridged with Lovenox #Chronic left lower extremity weakness: Does have a history of left knee arthroplasty and has had the weakness since then. PT OT on board. #Depression: On carbamazepine #Nicotine dependence: Counseled to quit #Hypertension: On amlodipine and losartan as well as carvedilol #COPD: Not in exacerbation. Breathing treatments with bronchodilators. DVT prophylaxis: anticoagulated as stated above on coumadin with lovenox bridging. INR today is 1.3. Charges/Coding Visit Charges Inpatient E&M: 58389 Subs Hosp L2
--- NOTE | 2024-10-24 15:11 | CASEMGMT ---
Social Work SW met with pt to discuss home health. Pt states she wants to speak with her son about home health options prior to making a decision regarding preferred provider. SW requested pt to speak with son marti and identify three preferences of home health companies and SW will follow up in the morning and make referrals. SEUN Natarajan
[2024-10-24] MEDS: Warfarin (PBKC) 4 MG Tablet PO (16:43)
[2024-10-24] MEDS: Warfarin (PBKC) 6 MG Tablet PO (17:58)
[2024-10-24] MEDS: 0.9% Saline Lock 10 ML Syringe IV (21:09)
[2024-10-25 00:32] VITALS: BP 151/102; PULSE 69; RESP 16; TEMP 36.6; O2SAT 96
[2024-10-25 02:56] VITALS: BMI 22.1
[2024-10-25 05:47] LABS: Hematocrit 40.9 % (37-47); Hemoglobin 14.2 g/dL (12.0-15.0); Immature Granulocytes Count 0.030 X10^3/uL (0.0-0.0); Mean Corp Hgb Conc 34.7 g/dL (32-36); Mean Corpuscular Volume 93.0 fL (81-99); Mean Platelet Vol. 10.3 fl (6.2-12.0); NRBC Flagged by Analyzer 0 % (0-5); Platelet Count 179 K/mm3 (150-450); RBC Distribution Width CV 12.6 % (11.6-14.6); RBC Distribution Width SD 43.3 fl (35.1-43.9); Red Blood Count 4.40 M/mm3 (4.2-5.4); White Blood Count 7.4 K/mm3 (4.4-11.0)
[2024-10-25 05:48] VITALS: BP 136/117; PULSE 71; RESP 16; TEMP 36.4; O2SAT 96
[2024-10-25 05:55] VITALS: BP 136/117; PULSE 71
[2024-10-25 06:13] LABS: Anion Gap 12 (5-15); BUN 16 mg/dL (4-19); BUN/Creat Ratio 32.2 RATIO (10-20); Calcium,Total 9.2 mg/dL (7.6-11.0); Carbon Dioxide 23.3 mmol/L (21.0-32.0); Chloride 103 mmol/L (98-108); Estimated Creatinine Clearance 45.85 ml/min (50-250); Glucose 119 mg/dL (70-99); Potassium 3.4 mmol/L (3.3-5.1)
[2024-10-25 06:41] LABS: Prothrombin Time (Protime)PT. 22.0 SECONDS (11.7-14.9)
--- NOTE | 2024-10-25 09:21 | CASEMGMT ---
Social Work SW spoke with the patient regarding home health. Patient chose [facility]. SW made the referral. CARLYN Davis
[2024-10-25 09:33] VITALS: BP 167/107; PULSE 73; RESP 18; TEMP 36.5; O2SAT 96
--- NOTE | 2024-10-25 11:05 | CASEMGMT ---
Social Work [facility] has accepted the patient and started of care is tomorrow. CARLYN Davis
[2024-10-25 11:06] VITALS: BMI 22.1
--- NOTE | 2024-10-25 11:19 | CASEMGMT ---
Social Work SW spoke with the patient and informed her that [facility] accepted her and will start services tomorrow. MAR[facility] informed [facility] to schedule. CARLYN Davis
--- NOTE | 2024-10-25 11:22 | CASEMGMT ---
Social Work SW spoke with patient and informed her that [facility] has accepted her. SW informed her that they are able to start tomorrow and will call her to schedule time. CARLYN Davis
--- NOTE | 2024-10-25 12:30 | DS.PCM_ITS ---
Providers Date of Admission: 10/23/24 Date of Discharge: 10/25/24 Primary Care Physician: Savage Gilliam MD Consultations 10/23/24 01:42 Consult: Tele-Neurology Routine Consulting Provider: [facility] Reason for Consult: Acute Ischemic Stroke/TIA EMERGENT Consult: No MD Notified: Yes Date Notified: 10/23/24 Time Notified: 01:43 Method of Notification: Answering Service Method of Consult:: Telemedicine Nursing Unit Staff Notify [facility] of Tele-Neurology Consult: Yes Reason For Visit: ACUTE ISCHEMIC STROKE Diagnosis Discharge Diagnosis (1) Subtherapeutic anticoagulation: Status: Acute Code(s): Z51.81 - Encounter for therapeutic drug level monitoring; Z79.01 - long term care pharmacist (current) use of 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 (2) Acute ischemic stroke: Status: Acute Code(s): I63.9 - Cerebral infarction, unspecified Plan #Acute ischemic CVA * Admitted with a complaint of left lower extremity weakness and right upper extremity weakness. * CT of the brain that showed acute infarct of the right anterior temporal lobe and evidence of old lacunar infarcts. * MRI of the brain done showed possible subacute lacunar infarct of the posterior limb of the left internal capsule with chronic encephalomalacia and gliosis in the anterior right temporal lobe with no superimposed acute component right temporal infarct being new since 01/17/2024 * Has a history of A-fib and is on Coumadin. She claims compliance but INR is therapeutic and is 1.3 today. Being bridged with Lovenox; continue Coumadin. Counseled on compliance. * PT OT on board. Fall precautions. * BP meds held for the first 24 hours to allow for permissive hypertension * PT/OT on board and high intensity statin. * 2D echo showed severe left ventricular hypertrophy with EF of 60% and normal left ventricular systolic function with stage I diastolic dysfunction. Also had mild mitral valve stenosis and left atrium is severely enlarged. #Hyperlipidemia: On high intensity statin #Atrial fibrillation: On carvedilol. On Coumadin with subtherapeutic INR. INR is 1.3 today. Coumadin being bridged with Lovenox #Chronic left lower extremity weakness: * Does have a history of left knee arthroplasty and has had the weakness since then. * PT OT on board. #Depression: On carbamazepine #Nicotine dependence: Counseled to quit #Hypertension: On amlodipine and losartan as well as carvedilol #COPD: Not in exacerbation. Breathing treatments with bronchodilators. DVT prophylaxis: anticoagulated as stated above on coumadin with lovenox bridging. INR today is 1.3. Medications at Discharge Home Medications multivitamin (Daily Multi-Vitamin tablet) 1 tab PO DAILY vitamin 02/11/23 aspirin 81 mg chewable tablet 81 mg PO BREAKFAST heart health #1 TAB 02/13/23 amlodipine 10 mg tablet 10 mg PO QDAY blood pressure 01/19/24 atorvastatin 40 mg tablet 40 mg PO QHS cholesterol 02/15/24 carbamazepine 200 mg tablet 400 mg PO Q12H seizures 02/15/24 valsartan 160 mg tablet 160 mg PO BID blood pressure #180 tabs 04/08/24 carvedilol 25 mg tablet 25 mg PO BID blood pressure #180 tabs 06/13/24 hydralazine 100 mg tablet 100 mg PO TID blood pressure #270 TABLETS 06/14/24 warfarin 6 mg tablet 6 mg PO DAILY #30 tabs 10/25/24 Hospital Course Operations None Procedures 2-D Echocardiogram Summary of Care Provided Minutes Spent on Discharge: 45 Hospital Course: Patient is a 74-year-old female with past medical history as outlined was admitted to the ED on 10/23/2024 with complaint of left lower extremity weakness. She was shopping with her son at [employer] and started having the left lower extremity weakness. She says she had had a fall about 3 months after she had a left knee arthroplasty so she did not take much of it until her son brought her in. She had a history of a stroke about 25 years ago but did not have any significant residual neurologic defects. She also had a history of aortic valve replacement with bioprosthetic aortic valve and was on Coumadin. She claims compliance with her Coumadin. By the time she came into the ED her symptoms had largely resolved. CT of the brain showed acute infarct in the right anterior temporal lobe and no acute hemorrhage or mass effects. She was admitted to be managed for stroke. Neurology was consulted. MRI of the brain showed a possible subacute lacunar infarct of the posterior limb of the left internal capsule with chronic encephalomalacia and gliosis in the anterior right temporal lobe with no superimposed acute component. Her INR was subtherapeutic and was 1.2 on admission. Neurology was consulted as stated. 2D echo showed severe left ventricular hypertrophy with EF of 60% and normal left ventricular systolic function with stage I diastolic dysfunction and also mild mitral valve stenosis and severely enlarged left atrium. She was bridged with Lovenox until her INR was 1.9. She worked with therapy and did well. She was discharged home with home health on 10/25/2024. Her Coumadin dose was increased to 6 mg daily. She was counseled to follow-up within a week with her PCP for INR to be checked and Coumadin dose adjusted as needed. She was counseled strongly to be very compliant with her Coumadin and to watch her diet pulse on Coumadin and avoid dark green leafy vegetables as they could interfere with her INR. She is follow-up with her primary care doctor and was also placed on aspirin. She is to follow-up with neurology within 1 month on outpatient basis. Patient seen and examined prior to discharge. She had no complaints and felt well. She had an uneventful night. Review of systems otherwise negative. Labs and vitals reviewed. Home medication reviewed and reconciled. Physical Exam Const alert, oriented x3, no apparent distress and well nourished General Appearance: cooperative, comfortable and well developed HEENT normocephalic, head/scalp atraumatic, hearing grossly normal bilaterally, moist oral mucous membranes and oropharynx normal Mouth: oral and palatal mucosa normal Eyes PERRL and EOMs intact bilaterally Neck no lymphadenopathy, supple and no JVD Lymph Lymphatic: no lymphadenopathy noted and no lymphedema noted Resp normal respiratory effort, normal air movement and clear to auscultation bilaterally Cardio regular rate, regular rhythm, S1 normal heart sound and S2 normal heart sound Rhythm: abnormal rhythm irregularly irregular Heart Sounds: murmur systolic GI normal to inspection, nondistended, normoactive bowel sounds, soft to palpation, non-tender and non-distended Extremity normal capillary refill, no clubbing, cyanosis or edema and no calf tenderness General Extremity: no tenderness to palpation of joints or extremities Skin no rashes or lesions noted General Skin Exam: no breakdown and turgor normal Neuro oriented x3, CN's II-XII intact bilaterally, moves all extremities and no sensory deficits noted Neuro Narrative: Slight weakness in left leg as compared to right Motor Exam: strength 5/5 throughout Psych thought process normal, cooperative and affect normal Appearance: appropriate Weight / BMI Weight Weight: 116 lb 13.52 oz Body Mass Index (BMI) 22.1 ABG / Lab / Microbiology Data 10/25/24 05:08 10/25/24 05:08 Laboratory: Laboratory Results - last 24 hr 10/25/24 05:08: WBC 7.4, RBC 4.40, Hgb 14.2, Hct 40.9, MCV 93.0, MCH 32.3 H, MCHC 34.7, RDW Std Deviation 43.3, RDW Coeff of Geena 12.6, Plt Count 179, MPV 10.3, Immature Gran % (Auto) 0.400, Neut % (Auto) 57.2, Lymph % (Auto) 31.9, [place] % (Auto) 9.3, Eos % (Auto) 0.4, Baso % (Auto) 0.8, Absolute Neuts (auto) 4.2, Absolute Lymphs (auto) 2.36, Nucleated RBC % 0, PT 22.0 H, INR 1.9, Sodium 139, Potassium 3.4, Chloride 103, Carbon Dioxide 23.3, Anion Gap 12, BUN 16, C reatinine 0.48 L, Estim Creat Clear Calc 45.85 L, Est GFR (MDRD) Non-Af 99, B UN/Creatinine Ratio 32.2 H, Glucose 119 H, Calcium 9.2 D/C Instructions Discharge Activity: Return to Normal Activity Weight Bearing Status: Weight bearing as tolerated Call your doctor if you observe: Fever of 101 or Higher, Shortness of breath, Dizziness, Swelling in the ankles and Chest pain DC O2, CPAP, BIPAP Needs Home O2 Discharge instructions: No DC home with Oxygen: No Meaningful Use Info Meaningful Use Meaningful Use Diagnoses (Choose all that apply): Ischemic CVA CVA Therapy Assessed for PT,OT and/or ST?: Yes Ischemic Stroke Antithrombotic order at d/c?: Yes Dx of Atrial fib/flutter?: Yes Anticoagulant at discharge?: Yes Statins at discharge?: Yes Primary Dx Acute Ischemic CVA?: Yes IV thrombolytic ordered during stay?: No Reason IV thrombolytic not ordered: Treatment not Indicated Discharge Plan Admission Admit Date/Time: 10/23/24 00:15 Primary Reason for Your Visit: acute CVA Attending Provider: Rosalva Ortez Primary Care Provider: Savage Gilliam Consulting Providers: Forrest Bonilla Instructions Patient Instructions: Booklet - Understanding Stroke Discharge Orders/Prescriptions Prescriptions: New warfarin 6 mg tablet 6 mg PO DAILY Qty: 30 2RF Continued amlodipine 10 mg tablet 10 mg PO QDAY Patient Comments: takes at 0600 atorvastatin 40 mg tablet 40 mg PO QHS carbamazepine 200 mg tablet 400 mg PO Q12H Patient Comments: takes at 0600 and 1800 multivitamin [Daily Multi-Vitamin] Tablet 1 tab PO DAILY Patient Comments: takes at 1200 aspirin 81 mg Tablet,Chewable 81 mg PO BREAKFAST Qty: 1 0RF Patient Comments: takes at 0600 valsartan 160 mg tablet 160 mg PO BID Qty: 180 3RF Patient Comments: takes at 0600 and 1800 carvedilol 25 mg tablet 25 mg PO BID Qty: 180 3RF Patient Comments: takes at 0600 and 1800 hydralazine 100 mg tablet 100 mg PO TID Qty: 270 3RF Patient Comments: takes at 0600, 1800, and 0000 Discontinued warfarin 4 mg tablet 4 mg PO DAILY Patient Comments: takes at 1800 Referrals / Follow Up: Savage Gilliam MD [Primary Care Provider, Family Practice] - 11/01/24 10:30 am Familia Hurst MD [Non-Staff -Ordering Privileges, Neurology] - Within 2 Weeks Referral Note: see to establish care for stroke Disposition Disposition (needs filled in before D/C Order can be placed): Home Health Service Charges/Coding Visit Charges Inpatient E&M: 90726 Disch Hosp >30min
--- NOTE | 2024-10-25 13:09 | PHA.DC.COU.R ---
Pharmacy [facility] has performed discharge medication counseling for this patient. The patient was counseled on the following discharge medications and changes in medications for homegoing review. - Warfarin 6 mg daily. Increasing dose from 4 mg daily. The Reason for Use, instructions for use, and potential side effects were reviewed for all new medications. The patient's questions regarding all of their medications were answered. The patient was able to verbally demonstrate an understanding of their discharge medications. Medications at Discharge Home Medications multivitamin (Daily Multi-Vitamin tablet) 1 tab PO DAILY vitamin 02/11/23 aspirin 81 mg chewable tablet 81 mg PO BREAKFAST heart health #1 TAB 02/13/23 amlodipine 10 mg tablet 10 mg PO QDAY blood pressure 01/19/24 atorvastatin 40 mg tablet 40 mg PO QHS cholesterol 02/15/24 carbamazepine 200 mg tablet 400 mg PO Q12H seizures 02/15/24 valsartan 160 mg tablet 160 mg PO BID blood pressure #180 tabs 04/08/24 carvedilol 25 mg tablet 25 mg PO BID blood pressure #180 tabs 06/13/24 hydralazine 100 mg tablet 100 mg PO TID blood pressure #270 TABLETS 06/14/24 warfarin 6 mg tablet 6 mg PO DAILY #30 tabs 10/25/24
[2024-10-25 14:34] VITALS: PULSE 82
[2024-10-25 14:37] VITALS: BP 150/105; PULSE 82; RESP 16; TEMP 36.6; O2SAT 97
== END 2024-10-25 15:38 | disposition home health service (06) | DRG 65 ==
LOC: ED 23:09 → PCU 10-23 00:30
PROVIDERS: Admitting Provider Family Medicine; Emergency Provider Emergency Medicine; PCP Family Medicine; Visit Provider Student in an Organized Health Care Education/Training Program
DX: I63.81 Other cerebral infarction due to occlusion or stenosis of small artery (principal); I48.19 Other persistent atrial fibrillation; E11.9 Type 2 diabetes mellitus without complications; J44.9 Chronic obstructive pulmonary disease, unspecified; I10 Essential (primary) hypertension; F32.A Depression, unspecified; Z95.2 Presence of prosthetic heart valve; E78.5 Hyperlipidemia, unspecified; F17.200 Nicotine dependence, unspecified, uncomplicated; M25.562 Pain in left knee; I25.2 Old myocardial infarction; Z95.1 Presence of aortocoronary bypass graft; G89.29 Other chronic pain; Z79.01 Long term (current) use of 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; Z86.73 Personal history of transient ischemic attack (TIA), and cerebral infarction without residual deficits; R29.898 Other symptoms and signs involving the musculoskeletal system; Z79.82 Long term (current) use of aspirin; Z96.652 Presence of left artificial knee joint; Z79.899 Other long term (current) drug therapy; R29.702 NIHSS score 2
CPT/HCPCS: 36415; 70450; 70544; 70549; 70553; 73564; 80048; 80061; 80076; 80307; 83036; 84443; 85025; 85610; 92507; 92523; 93005; 93306; 94762; 97162; 97166; 97530; 97535; 97802; 99285; A9575; A4216

== ENCOUNTER → 2024-11-08 | Outpatient (CLI) | payer MEDICARE, SELFPAY ==
[2024-11-08 14:54] LABS: Prothrombin Time (Protime)PT. 32.4 SECONDS (11.7-14.9)
== END | disposition home or self-care (01) ==
LOC: MFPLAB 11:12
PROVIDERS: PCP Family Medicine; Referring Provider Family Medicine; Visit Provider Family Medicine
DX: I48.91 Unspecified atrial fibrillation (principal)
CPT/HCPCS: 36415; 85610

== ENCOUNTER → 2025-01-10 | Outpatient (CLI) | payer MEDICARE, SELFPAY ==
[2025-01-10 12:44] LABS: Prothrombin Time (Protime)PT. 33.7 SECONDS (11.7-14.9)
== END | disposition home or self-care (01) ==
LOC: LAB 12:12
PROVIDERS: PCP Family Medicine; Referring Provider Nurse Practitioner Gerontology; Visit Provider Nurse Practitioner Gerontology
DX: I48.91 Unspecified atrial fibrillation (principal); Z95.2 Presence of prosthetic heart valve
CPT/HCPCS: 36415; 85610

== ENCOUNTER → 2025-01-30 | Outpatient (CLI) | payer MEDICARE, SELFPAY ==
--- NOTE | 2025-01-30 09:36 | BD_ITS ---
PROCEDURE: DEXA BONE DENSITY STUDY 01/30/2025 REASON FOR EXAM: F, age 74 y/o . Postmenopausal. TECHNIQUE: Procedure Code: BDDBD Modality: DX Procedure: DEXA BONE DENSITY STUDY COMPARISON: None FINDINGS: BMD and T-SCORES Lumbar spine: 0.785 g/cm2, T-score -1.8 Levels: L1 through L4 Left femoral neck: 0.543 g/cm2, T-score -2.8 Left total hip: 0.633 g/cm2, T-score -2.5 Right femoral neck: 0.616 g/cm2, T-score -2.1 Right total hip: 0.675 g/cm2, T-score -2.2 The World Health Organization has defined the following categories based on bone density: Normal bone density: T-score equal to or greater than -1.0 Osteopenia: T-score between -1.0 and -2.5 Osteoporosis: T-score equal to or less than -2.5 FRAX (or Comparable) Fracture Risk Assessment: 10 Year Probability of Fracture: Major Osteoporotic Fracture: 25% Hip Fracture: 13% (Note: FRAX is not to be reported in setting of normal range bone density, osteoporosis on DEXA, known history of osteoporosis, prior osteoporotic hip or vertebral fracture, or for any patient undergoing pharmacological treatment for bone loss.) The National Osteoporosis Foundation (NOF) recommends pharmacological treatment for patients with a FRAX 10-year risk of 3% or higher for a hip fracture, or 20% or higher for a major osteoporotic fracture, to prevent osteoporosis and reduce fracture risk. The patient does meet the pharmacological treatment recommendations for prevention of osteoporosis. BD/Dexa Bone Density Study IMPRESSION: OSTEOPOROSIS. Recommend follow-up in 1 year. Reading Location: [id number]
--- OUTSIDE RECORDS SUMMARY | 2025-01-30 09:39 | XMS RPT_ITS | CCD ---
Author Organization [facility] Care Team Providers Care Fixed Income Director Name Role Phone TWAN SAVAGE, MARIANN Maddox Primary Care Physician Ariana FULLER, Odilia Unavailable Unavailable VERA AUTOMATION CONSULTANT-STEREOTYPE CASTER, CHELITA A Primary Care Physi ida ELADIO EDUARDO MD Attending Unavailable VERA AUTOMATION CONSULTANT-STEREOTYPE CASTER, CHELITA A Primary Care Un available VERA AUTOMATION CONSULTANT-STEREOTYPE CASTER, CHELITA A Consulting Un available VERA AUTOMATION CONSULTANT-STEREOTYPE CASTER, CHELITA A Primary Care Un available DR MIKE KEARNEY MD Attending Unavailable VERA AUTOMATION CONSULTANT-STEREOTYPE CASTER, CHELITA A Attending Un available VERA AUTOMATION CONSULTANT-STEREOTYPE CASTER, CHELITA A Primary Care Un available VERA AUTOMATION CONSULTANT-STEREOTYPE CASTER, CHELITA A Primary Care Un available VERA AUTOMATION CONSULTANT-STEREOTYPE CASTER, CHELITA A Attending Un available VERA AUTOMATION CONSULTANT-STEREOTYPE CASTER, CHELITA A Primary Care Un available GONSALEZ AUTOMATION CONSULTANT-STEREOTYPE CASTER, MAKI Attending Unavailabl e VERA AUTOMATION CONSULTANT-STEREOTYPE CASTER, CHELITA A Primary Care Un available MAURY CASTELLANOS MD Attending Unavailable VERA AUTOMATION CONSULTANT-STEREOTYPE CASTER, CHELITA A Primary Care Un available DR MIKE KEARNEY MD Attending Unavailable NAINA JERNIGAN MD Consulting Unavailabl e VERA AUTOMATION CONSULTANT-STEREOTYPE CASTER, CHELITA A Primary Care Un available DR MIKE KEARNEY MD Attending Unavailable VERA AUTOMATION CONSULTANT-STEREOTYPE CASTER, CHELITA A Primary Care Un available DR MIKE KEARNEY MD Attending Unavailable VERA AUTOMATION CONSULTANT-STEREOTYPE CASTER, CHELITA A Primary Care Un available LAURIE AUTOMATION CONSULTANT-STEREOTYPE CASTER, May Attending Unavail able VERA AUTOMATION CONSULTANT-STEREOTYPE CASTER, CHELITA A Primary Care Un available VERA AUTOMATION CONSULTANT-STEREOTYPE CASTER, CHELITA A Attending Un available CHRISTEL SAVAGE, DR MIKE Lebron Attending Unavailable VERA AUTOMATION CONSULTANT-STEREOTYPE CASTER, CHELITA A Primary Care Un available VERA AUTOMATION CONSULTANT-STEREOTYPE CASTER, CHELITA A Primary Care Un available CHRISTEL [...] Dr. Eladio Almanza Referring Provider Unavailab Savage aHrper MD Primary Care Provider Savage Gilliam MD [...] DO, Dr. Jacob Referring Provider Marina SAVAGE, Chalon Referring Provider Yaneth SAVAGE, Dr. Yi [facility] FINANCIAL ANALYSIS CONSULTANT-C, Rob Attending Provider [facility]orrow FINANCIAL ANALYSIS CONSULTANT-C, Rob Referring Provider Marina SAVAGE, Chalon Primary Care Provider Marina SAVAGE, Savage Attending Provider [phone] Lázaro SAVAGE, Dr. Velasquez Emergency Provider Chad SAVAGE, Dr. Clayton Attending Provider Chad SAVAGE, Dr. Clayton Admit Provider Marina SAVAGE, Savage Primary Care Physician Marina SAVAGE, Savage Attending Physician [phone] Lázaro SAVAGE, Dr. Velasquez Emergency Department Phys ician Chad SAVAGE, Dr. Clayton Attending Physician Chad SAVAGE, Dr. Clayton Admitting Physician Chad SAVAGE, Dr. Clayton Nurse Practitioner Pérez SAVAGE, Dr. Rosalva Gan Attending Physician [phone] Christopher SAVAGE, Dr. Thomas Attending Physician [phone] Pérez SAVAGE, Dr. Rosalva Gan Nurse Practitioner Marina, Chalon Attending Unavailable Marina, Chalon Primary Care Unavailable Sukuamr Eddy Consulting Unavailable Sukumar Eddy Attending Unavailable Sukumar Eddy Admitting Unavailable Marina, Chalon Primary Care Unavailable Marina, Chalon Primary Care Unavailable William White Attending Unavailable Inés Sierra Attending Unavailabl e Eddie, Jacob Referring Unavailable Marina, Chalon Primary Care Unavailable Marina, Chalon Referring Unavailable Marina, Chalon Primary Care Unavailable Beckie Yun Attending Unavailable Kd Wolfe Attending Unavailable Marina, Chalon Referring Unavailable Marina, Chalon Primary Care Unavailable Forrest Bonilla Consulting Unavailable Forrest Bonilla Admitting Unavailable Marina, Chalon Primary Care Unavailable Koram, Rosalva Gan Attending Unavailable Koram, Rosalva Gan Consulting Unavailable Forrest Bonilla Attending Unavailable Marina, Chalon Primary Care Unavailable Jacob Morgan Attending Unavailable Marina, Chalon Primary Care Unavailable Marina, Chalon Primary Care Unavailable Ava Good Attending Unavailable Ava Good Referring Unavailable Herman Boogie Attending Unavailable Care Physician, No Primary Primary Care Unava ilable Marina, Chalon Primary Care Unavailable Jacob Morgan Attending Unavailable Forrest Bonilla Consulting Unavailable Chad, Forrest Admitting Unavailable Marina, Chalon Primary Care Unavailable Koram, Rosalva Elvia Attending Unavailable Sukumar Eddy Attending Unavailable Marina, Chalon Primary Care Unavailable Sukumar Eddy Admitting Unavailable Marina, Chalon Attending Unavailable Marina, Chalon Referring Unavailable Marina, Chalon Primary Care Unavailable Marina, Chalon Attending Unavailable Marina, Chalon Primary Care Unavailable McMorrow FINANCIAL ANALYSIS CONSULTANT, Rob Attending Unavailable McMorrow FINANCIAL ANALYSIS CONSULTANT, Rob Referring Unavailable Marina, Chalon Primary Care Unavailable Allergies Allergy Classification Reported Allergen(s) Allergy Type Date of Onset Reaction(s) Facility (17 sources) Codeine; Translations: [codeine] Drug Allergy 3 Dizziness/Verti go, Other, Vertigo [facility] (17 sources) Ibuprofen; Translations: [ibuprofen] Drug Allergy 3 Itching, Rash [facility] (17 sources) Naproxen; Translations: [naproxen] Drug Allergy 3 Hives, Rash [facility] (7 sources) Mayonnaise (substance) Food allergy Facial swelling (finding), Difficulty breathing (finding), Anaphylaxis (disorder) [facility] Comment on above: anaphylaxsis (5 sources) mayonnaise; Translations: [mayonnaise] Allergy to substance 5 Anaphylaxis [facility] (1 source) Codeine Drug Allergy 5 [facility] (1 source) Ibuprofen Drug Allergy 5 [facility] (1 source) Naproxen Drug Allergy 5 [facility] Medications Current Medications Medication Drug Class(es) Dates Sig (Normalized) Sig (Original) acetaminophen 500 mg oral tablet (9 sources) Start: 09-24-2019 Tylenol Extra Strength 500 mg oral tablet Dose : 1,000 mg = 2 tab(s), Oral, q8h, PRN as needed for pain, # 24 tab(s), 0 Refill(s) Start Date: 09/24/19 Status: Ordered amLODIPine 10 mg oral tablet (20 sources) Dihydropyridine Calcium Channel Aaron Start: 01-19-2024 take 1 tablet by mouth once daily Start: 01-13-2022 End: 07-20-2023 take 1 tablet by mouth once daily Amlodipine 10 mg tablet Discontinued 10 mg PO DAILY February 11, 2023 1:00am March 17, 2023 12:44am HTN Start: 10-27-2020 Norvasc 10 mg oral tablet Dose : 10 mg = 1 tab(s), Oral, qDay, # 90 tab(s), 3 Refill(s), Pharmacy: [facility], 155, cm, 10/27/20 8:01:00 EDT, Height, kg, 10/27/20 8:01:00 EDT, Dosing Weight Start Date: 10/27/20 Status: Ordered aspirin 81 mg chewable tablet (13 sources) Platelet Aggregation Inhibitor, Nonsteroidal Anti-inflammatory Drug Start: 02-13-2023 take 1 tablet by mouth at breakfast Start: 06-27-2017 aspirin 81 mg oral delayed release tablet Dose : 81 mg = 1 tab(s), Oral, Daily, 0 Refill(s) Start Date: 06/27/17 Status: Ordered Start: 06-27-2017 aspirin 81 mg oral delayed release tablet Dose : 81 mg = 1 tab(s), Oral, Daily, 0 Refill(s) Start Date: 06/27/17 Status: Ordered atorvastatin 40 mg oral tablet (20 sources) HMG-CoA Reductase Inhibitor Start: 02-15-2024 take 1 tablet by mouth at bedtime Start: 09-15-2022 End: 01-19-2024 take 1 tablet by mouth at bedtime Atorvastatin 40 mg tablet Discontinued 40 mg PO AT BEDTIME February 11, 2023 1:00am March 17, 2023 12:44am HYPERLIPIDEMIA Start: 07-25-2022 atorvastatin 4 0 mg oral tablet Dose : 40 mg = 1 tab(s), Oral, qDay, # 30 tab(s), 2 Refill(s), Pharmacy: [facility], 157.5, cm, 07/15/22 18:25:00 EDT, Height, kg, 07/23/22 5:13:00 EDT, Dosing Weight Start Date: 07/25/22 Status: Ordered Start: 01-13-2022 atorvastatin 2 0 mg oral tablet Dose : 20 mg = 1 tab(s), Oral, Daily, # 90 tab(s), 3 Refill(s), Pharmacy: [facility], 157.5, cm, 01/13/22 9:01:00 EST, Height, kg, 01/13/22 9:01:00 EST, Dosing Weight Start Date: 01/13/22 Status: Ordered Start: 01-14-2021 atorvastatin 2 0 mg oral tablet Dose : 20 mg = 1 tab(s), Oral, Daily, # 90 tab(s), 3 Refill(s), Pharmacy: [facility], 157.5, cm, 01/14/21 15:05:00 [...] BID, # 180 cap(s), 3 Refill(s), Pharmacy: [facility], 157.5, cm, 09/15/22 9:12:00 EDT, Height, kg, 12/24/22 11:35:00 EST, Dosing Weight Start Date: 12/24/22 Stop Date: 12/19/23 Status: Ordered Start: 01-13-2022 End: 01-08-2023 take 1 capsule by mouth twice daily calcium-vitamin D 600 mg-5 mcg (200 intl units) oral capsule Dose = 1 cap(s), Oral, BID, # 180 cap(s), 3 Refill(s), Pharmacy: [facility], 157.5, cm, 01/13/22 9:01:00 EST, Height Start Date: 01/13/22 Stop Date: 01/08/23 Status: Ordered Start: 02-21-2020 take 1 capsule by mo [facility] twice daily calcium-vitamin D 600 mg-200 intl units (5 mcg) oral capsule Dose = 1 cap(s), Oral, BID Start Date: 02/21/20 Status: Ordered carBAMazepine 200 mg oral tablet (20 sources) Mood Stabilizer Start: 02-15-2024 take 1 tablet by mouth every twelve hours Start: 02-15-2024 [facility] Carb[facility]epine 200 mg tablet Active 200 mg PO .qid February 15, 2024 4:04pm Start: 01-19-2024 End: 02-15-2024 take 1 tablet by mouth twice daily Carbamazepine 200 mg tablet Discontinued 200 mg PO TWICE A DAY January 19, 2024 2:13pm February 15, 2024 4:05pm Start: 01-15-2023 take 400 mg by mouth twice daily Carbamazepine Active 400 MG PO TWICE A DAY January 15, 2023 12:00am Start: 01-13-2022 End: 01-19-2024 take 1 tablet by mouth every twelve hours Carbamazepine 200 mg tablet Discontinued 400 mg PO Q12H February 11, 2023 1:00am March 17, 2023 12:45am EPILEPSEY Start: 10-27-2020 carBAMazepine 200 mg oral tablet Dose : 400 mg = 2 tab(s), Oral, BID, # 360 tab(s), 0 Refill(s), Pharmacy: [facility], 155, cm, 10/27/20 8:01:00 EDT, Height, kg, 10/27/20 8:01:00 EDT, Dosing Weight Start Date: 10/27/20 Status: Ordered clopidogrel 75 mg oral tablet [...] 0 Refill(s) Start Date: 01/07/14 Status: Ordered losartan potassium 100 mg oral tablet (2 sources) Angiotensin 2 Receptor Aaron Start: 01-13-2022 End: 01-08-2023 losartan 100 mg oral tablet Dose : 100 mg = 1 tab(s), Oral, qDay, # 90 tab(s), 3 Refill(s), Pharmacy: [facility], 157.5, cm, 01/13/22 9:01:00 EST, Height, kg, 01/13/22 9:01:00 EST, Dosing Weight Start Date: 01/13/22 Stop Date: 01/08/23 Status: Ordered Start: 10-27-2020 losartan 100 m g oral tablet Dose : 100 mg = 1 tab(s), Oral, qDay, # 90 tab(s), 3 Refill(s), Pharmacy: [facility], 155, cm, 10/27/20 8:01:00 EDT, Height, kg, 10/27/20 8:01:00 EDT, Dosing Weight Start Date: 10/27/20 Status: Ordered minoxidil 2.5 mg oral tablet (3 sources) Arteriolar Vasodilator Start: 01-13-2022 End: 01-08-2023 minoxidil 2.5 mg oral tablet Dose : 2.5 mg = 1 tab(s), Oral, Daily, # 90 tab(s), 3 Refill(s), Pharmacy: [facility], 157.5, cm, 01/13/22 9:01:00 EST, Height, kg, 01/13/22 9:01:00 EST, Dosing Weight Start Date: 01/13/22 Stop Date: 01/08/23 Status: Ordered Start: 10-27-2020 minoxidil 2.5 mg oral tablet Dose : 2.5 mg = 1 tab(s), Oral, Daily, # 90 tab(s), 3 Refill(s), Pharmacy: [facility], 155, cm, 10/27/20 8:01:00 EDT, Height, kg, 10/27/20 8:01:00 EDT, Dosing Weight Start Date: 10/27/20 Status: Ordered Multivitamin (Daily Multi-Vi tamin) tablet (4 sources) Start: 02-11-2023 Start: 02-11-2023 Multivitamin ( Daily Multi-Vitamin) tablet Active 1 {tbl} PO DAILY February 11, 2023 1:00am ofloxacin 3 mg/ml ophthalmic solution (8 sources) Quinolone Antimicrobial Start: 01-28-2023 ofloxa barbara 0.3% ophthalmic solution Dose = 1 drop(s), Eyes, both, QID, # 5 mL, 0 Refill(s) Start Date: 01/28/23 Status: Ordered Start: 01-15-2023 End: 01-17-2024 take 0.3 drop(s) into the eye(s) once daily Ofloxacin 0.3 % drops Discontinued 1 NMA OPHTHALMIC DAILY January 15, 2023 1:00am January 17, 2024 1:42pm polyethylene glycol 3350 [id number] mg powder for oral solution (6 sources) [...] BID, # 180 EA, 3 Refill(s), Pharmacy: [facility], 157.5, cm, 01/13/22 9:01:00 EST, Height, kg, 01/13/22 9:01:00 EST, Dosing Weight Start Date: 01/13/22 Stop Date: 01/08/23 Status: Ordered Start: 10-27-2020 End: 10-22-2021 take 10 capsules by mouth twice daily potassium chloride 10 mEq oral capsule, extended release Dose : 10 mEq =, Oral, BID, # 180 cap(s), 3 Refill(s), Pharmacy: [facility], 155, cm, 10/27/20 8:01:00 EDT, Height, kg, 10/27/20 8:01:00 EDT, Dosing Weight Start Date: 10/27/20 Stop Date: 10/22/21 Status: Ordered rivaroxaban 2.5 mg oral tablet (2 sources) Factor Xa Inhibitor Start: 01-20-2022 Xarelto 2. 5 mg oral tablet Dose : 2.5 mg = 1 tab(s), Oral, BID, # 60 tab(s), 11 Refill(s), Pharmacy: [facility], 157.5, cm, 01/20/22 9:33:00 EST, Height, 58.1 Start Date: 01/20/22 Status: Ordered Start: 01-14-2021 Xarelto 2.5 mg oral tablet Dose : 2.5 mg = 1 tab(s), Oral, BID, # 60 tab(s), 11 Refill(s), Pharmacy: [facility], 157.5, cm, 01/14/21 15:05:00 EST, Height, 60.8, kg, 01/14/21 15:05:00 EST, Dosing Weight Start Date: 01/14/21 Status: Ordered spironolactone 25 mg oral tablet (3 sources) Aldosterone Antagonist Start: 01-13-2022 End: 01-08-2023 spironolactone 25 mg oral tablet Dose : 25 mg = 1 tab(s), Oral, BID, # 180 tab(s), 3 Refill(s), Pharmacy: [facility], 157.5, cm, 01/13/22 9:01:00 EST, Height, kg, 01/13/22 9:01:00 EST, Dosing Weight Start Date: 01/13/22 Stop Date: 01/08/23 Status: Ordered Start: 10-27-2020 End: 10-22-2021 spironolactone 25 mg oral ta blet Dose : 25 mg = 1 tab(s), Oral, BID, # 180 tab(s), 3 Refill(s), Pharmacy: [facility], 155, cm, 10/27/20 8:01:00 EDT, Height, kg, 10/27/20 8:01:00 EDT, Dosing Weight Start Date: 10/27/20 Stop Date: 10/22/21 Status: Ordered valsartan 160 mg oral tablet (20 sources) Angiotensin 2 Receptor Aaron Start: 02-15-2024 End: 04-08-2024 take 1 tablet by mouth twice daily Start: 01-19-2024 End: 02-15-2024 take 1 tablet by mouth once daily Valsartan 160 mg tablet Discontinued 160 mg PO daily January 19, 2024 2:14pm February 15, 2024 4:05pm Start: 03-30-2022 End: 01-19-2024 take 1 tablet by mouth twice daily Valsartan 160 mg tablet Discontinued 160 mg PO TWICE A DAY February 11, 2023 1:00am March 17, 2023 12:46am BP warfarin sodium 6 mg oral tablet (20 sources) Vitamin K Antagonist Start: 10-25-2024 take 1 tablet by mouth once daily Start: 10-22-2024 End: 10-25-2024 take 1 tablet by mouth once daily Warfarin 4 mg tablet Discontinued 4 mg PO DAILY October 22, 2024 12:00am October 25, 2024 12:27pm Start: 03-03-2023 warfarin 3 mg oral tablet See Instructions, Take 1&1/2 tabs (4.5 mg) on Tuesday, Tuesday and Tuesday. Take 1 tab (3mg) all other days or as directed., # 110 tab(s), 1 Refill(s), Pharmacy: [facility], 157.5, cm, 02/18/23 9:18:00 EST, Height, kg, 02/18/23 9:18:00 EST, Dosing Weight Start Date: 03/03/23 Status: Ordered Start: 02-11-2023 End: 10-22-2024 take 4.5 mg by mouth once daily Warfarin 3 mg tablet Discontinued 4.5 mg PO DAILY February 11, 2023 1:00am October 22, 2024 9:42pm 4.5 mg TUESDAY, TUESDAY, TUESDAY; 3 mg Sat, Tue, , Start: 01-15-2023 End: 03-16-2023 take 1 tablet by mouth once daily Warfarin 2.5 mg tablet Discontinued 2.5 mg PO DAILY January 15, 2023 1:00am March 17, 2023 12:46am BLOOD THINNER Start: 01-15-2023 Warfarin Activ e MG January 15, 2023 12:00am Start: 08-16-2022 End: 08-11-2023 warfarin 3 mg oral tablet Do se : 6 mg = 2 tab(s), Oral, qDay, # 180 tab(s), 3 Refill(s), Pharmacy: [facility], Warfarin anticoagulation Afib, 157.5, cm, 08/09/22 15:26:00 EDT, Height, kg, 08/09/22 15:26:00 EDT, Dosing Weight Start Date: 08/16/22 Stop Date: 08/11/23 Status: Ordered Start: 07-25-2022 End: 10-17-2022 warfarin 2.5 mg oral tablet Dose : 2.5 mg = 1 tab(s), Oral, Daily, # 42 tab(s), 1 Refill(s), Pharmacy: [facility], 157.5, cm, 07/15/22 18:25:00 EDT, Height, kg, 07/23/22 5:13:00 EDT, Dosing Weight Start Date: 07/25/22 Stop Date: 10/17/22 Status: Ordered Completed/Discontinued Medications Medication Drug Class(es) Dates Sig (Normalized) Sig (Original) amiodarone hydrochloride 200 mg oral tablet (20 sources) Antiarrhythmic Start: 02-15-2024 End: 02-15-2024 Amiodarone 200 mg tablet Discontinued 100 mg PO DAILY February 15, 2024 4:25pm February 15, 2024 4:34pm Start: 02-11-2023 End: 02-15-2024 take 1 tablet by mouth once daily Amiodarone 200 mg tablet Discontinued 200 mg PO DAILY February 11, 2023 1:00am February 15, 2024 4:27pm Start: 01-15-2023 End: 03-16-2023 take 1 tablet by mouth twice daily Amiodarone 200 mg tablet Discontinued 200 mg PO TWICE A DAY January 15, 2023 1:00am March 17, 2023 12:44am heart Start: 01-15-2023 Amiodarone Act marce MG January 15, 2023 12:00am Start: 09-21-2022 amiodarone 200 mg oral tablet Dose : 200 mg = 1 tab(s), Oral, BID, # 180 tab(s), 3 Refill(s), Pharmacy: [facility], 157.5, cm, 09/15/22 9:12:00 EDT, Height, kg, 09/15/22 9:12:00 EDT, Dosing Weight Start Date: 09/21/22 Status: Ordered Start: 07-25-2022 amiodarone 200 mg oral tablet Dose : 200 mg = 1 tab(s), Oral, BID, # 60 tab(s), 0 Refill(s), Pharmacy: [facility], 157.5, cm, 07/15/22 18:25:00 EDT, Height Start Date: 07/25/22 Status: Ordered Calcium Carbonate / vitamin D3 (4 sources) Start: 02-11-2023 End: 10-22-2024 calcium carbonate-vitamin D3 Discontinued 1 {tbl} PO DAILY February 11, 2023 1:00am October 22, 2024 9:41pm Start: 02-11-2023 calcium carbon ate-vitamin D3 Active 1 {tbl} PO DAILY February 11, 2023 1:00am carvedilol 25 mg oral tablet (20 sources) alpha-Adrenergic Aaron, beta-Adrenergic Aaron Start: 02-15-2024 End: 06-13-2024 take 1 tablet by mouth twice daily Carvedilol 25 mg tablet Discontinued 25 mg PO TWICE A DAY 180 3 June 11, 2024 8:01am June 13, 2024 7:59am Start: 01-19-2024 End: 02-15-2024 Carvedilol 25 mg tablet Disc ontinued 12.5 mg PO TWICE A DAY January 19, 2024 2:13pm February 15, 2024 4:05pm Start: 04-14-2023 carvedilol 12. 5 mg oral tablet Dose : 12.5 mg = 1 tab(s), Oral, BID, # 180 tab(s), 3 Refill(s), Pharmacy: [facility], 157.5, cm, 04/11/23 11:05:00 EST, Height, kg, 04/11/23 11:05:00 EST, Dosing Weight Start Date: 04/14/23 Status: Ordered Start: 02-13-2023 End: 01-19-2024 take 1 tablet by mouth twice daily Carvedilol 25 mg Tablet Discontinued 25 mg PO TWICE A DAY 60 0 February 13, 2023 1:00am January 19, 2024 2:16pm cloNIDine hydrochloride 0.2 mg oral tablet (20 sources) Central alpha-2 Adrenergic Agonist Start: 01-18-2024 End: 02-15-2024 take 1 tablet by mouth three times daily Clonidine Hcl 0.2 mg Tablet Discontinued 0.2 mg PO THREE TIMES A DAY 90 30 0 January 18, 2024 1:00am February 15, 2024 4:26pm Start: 02-11-2023 End: 03-16-2023 take 1 tablet by mouth every eight hours Clonidine Hcl 0.3 mg tablet Discontinued 0.3 mg PO Q8H February 11, 2023 1:00am March 17, 2023 12:45am BP Start: 01-13-2022 End: 01-18-2024 take 1 tablet by mouth three times daily Clonidine Hcl 0.3 mg tablet Discontinued 0.3 mg PO THREE TIMES A DAY January 15, 2023 1:00am January 18, 2024 10:35am Start: 10-27-2020 cloNIDine 0.3 mg oral tablet Dose : 0.3 mg = 1 tab(s), Oral, TID, # 270 tab(s), 3 Refill(s), Pharmacy: [facility], 155, cm, 10/27/20 8:01:00 EDT, Height, kg, 10/27/20 8:01:00 EDT, Dosing Weight Start Date: 10/27/20 Status: Ordered hydrALAZINE hydrochloride 100 mg oral tablet (20 sources) Arteriolar Vasodilator Start: 02-15-2024 End: 06-14-2024 take 1 tablet by mouth three times daily Hydralazine 100 mg tablet Discontinued 100 mg PO THREE TIMES A DAY 90 30 3 June 12, 2024 9:26am June 14, 2024 8:20am Start: 01-18-2024 End: 02-15-2024 take 1 tablet by mouth three times daily Hydralazine 50 mg Tablet Discontinued 50 mg PO THREE TIMES A DAY 90 30 0 January 18, 2024 1:00am February 15, 2024 [...] 16, 2023 1:00am January 20, 2023 11:51am BLOOD PRESSURE Start: 01-15-2023 End: 01-18-2024 take 1 tablet by mouth three times daily Hydralazine 100 mg tablet Discontinued 100 mg PO THREE TIMES A DAY January 15, 2023 1:00am January 18, 2024 10:35am BLOOD PRESSURE Start: 12-13-2022 hydrALAZINE 10 mg oral tablet Dose : 10 mg = 1 tab(s), Oral, TID, # 270 tab(s), 3 Refill(s), Pharmacy: [facility], 157.5, cm, 09/15/22 9:12:00 EDT, Height, kg, 09/15/22 9:12:00 EDT, Dosing Weight Start Date: 12/13/22 Status: Ordered Start: 07-25-2022 hydrALAZINE 10 mg oral tablet Dose : 10 mg = 1 tab(s), Oral, TID, # 90 tab(s), 2 Refill(s), Pharmacy: [facility], 157.5, cm, 07/15/22 18:25:00 [...] TID, # 90 tab(s), 3 Refill(s), Pharmacy: [facility], 157.5, cm, 01/13/22 9:01:00 EST, Height, kg, 01/13/22 9:01:00 EST, Dosing Weight Start Date: 01/13/22 Status: Ordered Start: 10-27-2020 hydrALAZINE 10 0 mg oral tablet Dose : 100 mg = 1 tab(s), Oral, TID, # 270 tab(s), 3 Refill(s), Pharmacy: [facility], 155, cm, 10/27/20 8:01:00 EDT, Height, kg, 10/27/20 8:01:00 EDT, Dosing Weight Start Date: 10/27/20 Status: Ordered hydroCHLOROthiazide 25 mg oral tablet (7 sources) Thiazide Diuretic Start: 01-20-2023 End: 03-16-2023 take 1 tablet by mouth once daily Hydrochlorothiazide 25 mg Tablet Discontinued 25 mg PO DAILY 30 January 20, 2023 1:00am March 17, 2023 12:45am Start: 04-16-2022 hydroCHLOROthi azide 12.5 mg oral capsule Dose : 12.5 mg = 1 cap(s), Oral, qDay, # 90 cap(s), 3 Refill(s), Pharmacy: [facility], 157.5, cm, 04/16/22 11:41:00 EST, Height Start Date: 04/16/22 Status: Ordered 24 hr isosorbide mononitrate 60 mg extended release oral tablet (9 sources) Nitrate Vasodilator Start: 01-19-2024 End: 02-15-2024 [...] qAM, # 90 tab(s), 3 Refill(s), Pharmacy: [facility], 157.5, cm, 02/18/23 9:18:00 EST, Height, kg, 02/18/23 9:18:00 EST, Dosing Weight Start Date: 03/01/23 Status: Ordered Start: 01-13-2022 isosorbide mon onitrate 120 mg oral tablet, extended release Dose : 120 mg = 1 tab(s), Oral, qAM, # 90 tab(s), 3 Refill(s), Pharmacy: [facility], 157.5, cm, 01/13/22 9:01:00 EST, Height, kg, 01/13/22 9:01:00 EST, Dosing Weight Start Date: 01/13/22 Status: Ordered Start: 10-27-2020 isosorbide mon onitrate 120 mg oral tablet, extended release Dose : 120 mg = 1 tab(s), Oral, qAM, # 90 tab(s), 3 Refill(s), Pharmacy: [facility], 155, cm, 10/27/20 8:01:00 EDT, Height, kg, 10/27/20 8:01:00 EDT, Dosing Weight Start Date: 10/27/20 Status: Ordered labetalol hydrochloride 100 mg oral tablet (19 sources) beta-Adrenergic Aaron Start: 02-11-2023 End: 02-13-2023 [...] BID, # 180 tab(s), 3 Refill(s), Pharmacy: [facility], 155, cm, 10/27/20 8:01:00 [...] 7-10, # 12 tab(s), 0 Refill(s), Pharmacy: [facility], CAD (coronary artery disease) s/p CABG x3, EF 55-60%, 07/09/2022 Hx of CABG, 157.5, cm, 07/15/22 18:25:00 EDT, Height, 57.4 Start Date: 07/25/22 Stop Date: 07/28/22 Status: Ordered polymyxin b 41526 unt/ml / trimethoprim 1 mg/ml ophthalmic solution (5 sources) Dihydrofolate Reductase Inhibitor Antibacterial, Polymyxin-class Antibacterial Start: 02-11-2023 End: 01-17-2024 Polymyxin B Sulf-Trimethoprim 10,000 unit- 1 mg/mL drops Discontinued 1 NMA OPHTHALMIC TWICE A DAY February 11, 2023 1:00am January 17, 2024 1:42pm CATARACTS Start: 12-20-2022 End: 12-27-2022 take 1 dose into the eye(s) every three hours polymyxin B-trimethoprim 10,000 units-1 mg/mL ophthalmic solution Dose = 1 drop(s), Ophthalmic, q3h, X 7 day(s), # 10 mL, 0 Refill(s), Pharmacy: [facility], Conjunctivitis, 157.5, cm, 09/15/22 9:12:00 EDT, Height, kg, 09/15/22 9:12:00 EDT, Dosing Weight Start Date: 12/20/22 Stop Date: 12/27/22 Status: Ordered Problems Active Problems Problem Classification Problem Date Documented Date Episodic/Chronic Acute cerebrovascular disease (20 sources) Cerebrovascular accident; Translations: [Ischemic stroke] Onset: 02-15-2024 01-13-2021 Chronic Acute cerebrovascular disease (2 sources) Acute cerebrovascular disease Acute myocardial infarction (14 sources) Acute non-ST segment elevation myocardial infarction; Translations: [Myocardial infarction] 06-27-2017 Chronic Bacterial infection; unspecified site (4 sources) Rheumatic fever; Translations: [Rheumatic fever without heart involvement] 01-19-2024 Episodic Cardiac dysrhythmias (20 sources) Unspecified atrial fibrillation; Translations: [Atrial fibrillation] Onset: 07-16-2022 Chronic Chronic obstructive pulmonary disease and bronchiectasis (20 sources) Acute exacerbation of chronic obstructive airways disease; 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] Onset: 10-31-2024 09-20-2019 Chronic Coagulation and hemorrhagic disorders (4 sources) Thrombocytopenic disorder; Translations: [Thrombocytopenia, unspecified] 01-19-2024 Chronic Coronary atherosclerosis and other heart disease (18 sources) Coronary arteriosclerosis; Translations: [Coronary atherosclerosis] Onset: 07-15-2022 01-24-2020 Chronic Coronary atherosclerosis and other heart disease (2 sources) Aortocoronary bypass graft present; Translations: [Presence of aortocoronary bypass graft] Onset: 07-25-2022 Episodic Deficiency and other anemia (13 sources) Anemia; Translations: [Anemia, unspecified] Onset: 07-16-2022 Episodic Diabetes mellitus without complication (11 sources) Type 2 diabetes mellitus without complication; Translations: [Type 2 diabetes mellitus without complications] Onset: 12-24-2022 Chronic Disorders of lipid metabolism (19 sources) Dyslipidemia; Translations: [Hyperlipidemia] Onset: 10-31-2024 09-20-2019 Chronic Comment on above: 07/13/2018: Total chol esterol 132, triglycerides 42, HDL 63 and LDL 61 AST 14 and ALT 19 09/24/2015: Total cholesterol 138, triglycerides 94, HDL 60 and LDL 59; AST 15 ALT 11 Epilepsy; convulsions (19 sources) Epilepsy; Translations: [Epilepsy, unspecified, not intractable, without status epilepticus] Onset: 07-16-2022 01-24-2020 Chronic Esophageal disorders (8 sources) Gastroesophageal reflux disease; Translations: [Gastro-esophageal reflux disease without esophagitis] Onset: 10-31-2024 01-19-2024 Chronic Essential hypertension (20 sources) Hypertensive disorder; 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] Onset: 07-16-2022 10-27-2020 Chronic Fluid and electrolyte disorders (8 sources) Acute hyponatremia; Translations: [Hypo-osmolality and hyponatremia] 12-14-2023 Episodic Headache; including migraine (4 sources) Chronic headache disorder; Translations: [Chronic headache disorder] 01-19-2024 Episodic Heart valve disorders (20 sources) Aortic valve stenosis; Translations: [Mitral valve prolapse] Onset: 07-09-2022 01-13-2021 Chronic Comment on above: #23 Magna Ease Joint disorders and dislocations; trauma-related (4 sources) Dislocation of shoulder joint; Translations: [Unspecified dislocation of left shoulder joint, initial encounter] 03-03-2023 Episodic Mood disorders (7 sources) Depressive disorder; Translations: [Depression] 01-19-2024 Chronic Mood disorders (1 source) Mood disorders; Translations: [Depression, unspecified] Onset: 10-31-2024 Occlusion or stenosis of precerebral arteries (4 sources) Carotid artery stenosis; Translations: [Occlusion and stenosis of unspecified carotid artery] 01-19-2024 Chronic Other aftercare (16 sources) Long-term current use of anticoagulant; Translations: [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] Episodic Other aftercare (5 sources) Surgical follow-up 08-02-2022 Episodic Other aftercare (4 sources) assistant 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; Translations: [Long-term (current) use of 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] Onset: 10-31-2024 01-15-2023 Episodic Other aftercare (6 sources) Anticoagulant control - finding; Translations: [Encounter for therapeutic drug level monitoring] 10-22-2024 Episodic Other aftercare (1 source) Encounter for therapeutic drug level monitoring; Translations: [Encounter for therapeutic drug level monitoring] Onset: 10-31-2024 Episodic Other circulatory disease (5 sources) Low blood pressure; Translations: [Hypotension, unspecified] 01-21-2023 Episodic Other circulatory disease (5 sources) Orthostatic hypotension; Translations: [Orthostatic hypotension] 01-21-2023 Episodic Other circulatory disease (4 sources) H/O: atrial fibrillation; Translations: [Personal history of other diseases of the circulatory system] 03-25-2023 Episodic Other connective tissue disease (15 sources) Recurrent falls ; Translations: [Repeated falls] 01-15-2023 Episodic Other connective tissue disease (2 sources) Monoparesis - leg; Translations: [Other symptoms and signs involving the musculoskeletal system] 10-22-2024 Episodic Other connective tissue disease (5 sources) Other symptoms and signs involving the musculoskeletal system; Translations: [Weakness of left lower extremity] Onset: 10-31-2024 11-02-2024 Episodic Other injuries and conditions due to external causes (4 sources) Closed injury of head; Translations: [Unspecified injury of head, initial encounter] 03-25-2023 Episodic Other lower respiratory disease (14 sources) Dyspnea; Translations: [Shortness of breath] 06-27-2017 Episodic Other lower respiratory disease (4 sources) History of chronic obstructive airway disease; Translations: [Personal history of other diseases of the respiratory system] 12-14-2023 Episodic Other nervous system disorders (1 source) Other chronic pain; Translations: [Other chronic pain] Onset: 10-31-2024 Chronic Other nervous system disorders (10 sources) 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 09-20-2019 Episodic Other nervous system disorders (9 sources) H/O: epilepsy 01-13-2022 Episodic Other nervous system disorders (7 sources) Abnormal gait; Translations: [Unsteadiness on feet] 01-15-2023 Episodic Other non-traumatic joint disorders (7 sources) Pain in left knee; Translations: [Chronic pain of left knee] Onset: 10-31-2024 10-22-2024 Episodic Other nutritional; endocrine; and metabolic disorders (4 sources) H/O: diabetes mellitus; Translations: [Personal history of other endocrine, nutritional and metabolic disease] 12-14-2023 Episodic Otitis media and related conditions (4 sources) Perforation of tympanic membrane; Translations: [Unspecified perforation [...] insufficiency; arrest (adult) 07-09-2022 Superficial injury; contusion (20 sources) Abrasion of left ring finger; Translations: [Abrasion of left ring finger, initial encounter] 01-15-2023 Episodic Transient cerebral ischemia (11 sources) Transient cerebral ischemia; Translations: [Transient cerebral ischemic attack, unspecified] Onset: 10-31-2024 01-19-2024 Chronic Unclassified (4 sources) Anticoagulant effect 08-09-2022 Past or Other Problems Problem Classification Problem Date Documented Date Episodic/Chronic Cardiac dysrhythmias (19 sources) Bradycardia; Translations: [Bradycardia, unspecified] Onset: 02-15-2024 01-24-2020 Episodic Malaise and fatigue (12 sources) Asthenia; Translations: [Weakness] Onset: 07-16-2022 Episodic Other connective tissue disease (3 sources) Repeated falls; Translations: [History of fall] 01-15-2023 Episodic Other nervous system disorders (3 sources) Unsteadiness on feet; Translations: [Abnormality of gait] 01-15-2023 Episodic Other screening for suspected conditions (not mental disorders or infectious disease) (13 sources) Increased glucose level; Translations: [Deviation of international normalized ratio from target range] Onset: 02-14-2024 09-14-2022 Episodic Syncope (8 sources) Vasovagal symptom; Translations: [Syncope and collapse] Onset: 03-01-2024 02-18-2023 Episodic Results Test Name Value Interpretation Reference Range Facility Neurology Visit Reporton Neurology Visit Report Normal [facility] Prothrombin Time w/INRon INR Coag (PPP) [Relative time] 3.1 {INR} Normal [facility] Comment on above: Order Comment: Order Date: 04/02/24Order Info: 6301-6 - PT Performed By: #### L 300.3900 ####[facility] [address] [place], [address] PT Coag (PPP) [Time] 32.4 s High 11.7-14.9 [facility] Comment on above: Order Comment: Order Date: 04/02/24Order Info: 6301-6 - PT Performed By: #### L 300.3900 ####[facility] [address] [place], [address] Basic Metabolic Profile (BMP )on 10-31-2024 BUN Normal 4-19 [facility] Comment on above: Result Comment: Canc elled via OM: Order cancelled - Patient discharged Performed By: #### L 100.0100, L500.2500 ####[facility] [address] [place], [address] BUN/CRE Normal 10-20 [facility] Comment on above: Result Comment: Canc elled via OM: Order cancelled - Patient discharged Performed By: #### L 100.0100, L500.2500 ####[facility] [address] [place], [address] Calcium Normal 7.6-11.0 [facility] Comment on above: Result Comment: Canc elled via OM: Order cancelled - Patient discharged Performed By: #### L 100.0100, L500.2500 ####[facility] [address] [place], [address] CL Normal 98-108 [facility] Comment on above: Result Comment: Canc elled via OM: Order cancelled - Patient discharged Performed By: #### L 100.0100, L500.2500 ####[facility] [address] [place], [address] CO2 Normal 21.0-32.0 [facility] Comment on above: Result Comment: Canc elled via OM: Order cancelled - Patient discharged Performed By: #### L 100.0100, L500.2500 ####[facility] [address] [place], [address] CREAT,SERUM Normal 0.70-1.20 [facility] Comment on above: Result Comment: Canc elled via OM: Order cancelled - Patient discharged Performed By: #### L 100.0100, L500.2500 ####[facility] [address] [place], [address] eGFR Normal >60 [facility] Comment on above: Result Comment: Canc elled via OM: Order cancelled - Patient discharged Performed By: #### L 100.0100, L500.2500 ####[facility] [address] [place], [address] GAP Normal 5-15 [facility] Comment on above: Result Comment: Canc elled via OM: Order cancelled - Patient discharged Performed By: #### L 100.0100, L500.2500 ####[facility] [address] [place], [address] GLU Normal 70-99 [facility] Comment on above: Result Comment: Canc elled via OM: Order cancelled - Patient discharged Performed By: #### L 100.0100, L500.2500 ####[facility] [address] [place], [address] Potassium Normal 3.3-5.1 [facility] Comment on above: Result Comment: Canc elled via OM: Order cancelled - Patient discharged Performed By: #### L 100.0100, L500.2500 ####[facility] [address] [place], [address] Basic Metabolic Profile (BMP) Normal 133-145 [facility] Comment on above: Result Comment: Canc elled via OM: Order cancelled - Patient discharged Performed By: #### L 100.0100, L500.2500 ####[facility] [address] [place], [address] CBC W/Diff, Automatedon 09-2 Absolute Neut Normal 2.0-7.7 [facility] Comment on above: Result Comment: Canc elled via OM: Order cancelled - Patient discharged Performed By: #### L 100.0100, L500.2500 ####[facility] [address] [place], [address] HCT Normal 37-47 [facility] Comment on above: Result Comment: Canc elled via OM: Order cancelled - Patient discharged Performed By: #### L 100.0100, L500.2500 ####[facility] [address] [place], [address] HGB Normal 12.0-15.0 [facility] Comment on above: Result Comment: Canc elled via OM: Order cancelled - Patient discharged Performed By: #### L 100.0100, L500.2500 ####[facility] [address] [place], [address] MCH Normal 27.0-32.0 [facility] Comment on above: Result Comment: Canc elled via OM: Order cancelled - Patient discharged Performed By: #### L 100.0100, L500.2500 ####[facility] [address] [place], [address] MCHC Normal 32-36 [facility] Comment on above: Result Comment: Canc elled via OM: Order cancelled - Patient discharged Performed By: #### L 100.0100, L500.2500 ####[facility] [address] [place], [address] MCV Normal 81-99 [facility] Comment on above: Result Comment: Canc elled via OM: Order cancelled - Patient discharged Performed By: #### L 100.0100, L500.2500 ####[facility] [address] [place], [address] NEUT% Normal 47-70 [facility] Comment on above: Result Comment: Canc elled via OM: Order cancelled - Patient discharged Performed By: #### L 100.0100, L500.2500 ####[facility] [address] [place], [address] PLT Normal 150-450 [facility] Comment on above: Result Comment: Canc elled via OM: Order cancelled - Patient discharged Performed By: #### L 100.0100, L500.2500 ####[facility] [address] [place], [address] RBC Normal 4.2-5.4 [facility] Comment on above: Result Comment: Canc elled via OM: Order cancelled - Patient discharged Performed By: #### L 100.0100, L500.2500 ####[facility] [address] [place], [address] RDW CV Normal 11.6-14.6 [facility] Comment on above: Result Comment: Canc elled via OM: Order cancelled - Patient discharged Performed By: #### L 100.0100, L500.2500 ####[facility] [address] [place], [address] RDW SD Normal 35.1-43.9 [facility] Comment on above: Result Comment: Canc elled via OM: Order cancelled - Patient discharged Performed By: #### L 100.0100, L500.2500 ####[facility] [address] [place], [address] WBC Normal 4.4-11.0 [facility] Comment on above: Result Comment: Canc elled via OM: Order cancelled - Patient discharged Performed By: #### L 100.0100, L500.2500 ####[facility] [address] [place], [address] Basic Metabolic Profile (BMP )on 10-30-2024 BUN Normal 4-19 [facility] Comment on above: Result Comment: Canc elled via OM: Order cancelled - Patient discharged Performed By: #### L 100.0100, L500.2500 ####[facility] [address] [place], [address] BUN/CRE Normal 10-20 [facility] Comment on above: Result Comment: Canc elled via OM: Order cancelled - Patient discharged Performed By: #### L 100.0100, L500.2500 ####[facility] [address] [place], [address] Calcium Normal 7.6-11.0 [facility] Comment on above: Result Comment: Canc elled via OM: Order cancelled - Patient discharged Performed By: #### L 100.0100, L500.2500 ####[facility] [address] [place], [address] CL Normal 98-108 [facility] Comment on above: Result Comment: Canc elled via OM: Order cancelled - Patient discharged Performed By: #### L 100.0100, L500.2500 ####[facility] [address] [place], [address] CO2 Normal 21.0-32.0 [facility] Comment on above: Result Comment: Canc elled via OM: Order cancelled - Patient discharged Performed By: #### L 100.0100, L500.2500 ####[facility] [address] [place], [address] CREAT,SERUM Normal 0.70-1.20 [facility] Comment on above: Result Comment: Canc elled via OM: Order cancelled - Patient discharged Performed By: #### L 100.0100, L500.2500 ####[facility] [address] [place], [address] eGFR Normal >60 [facility] Comment on above: Result Comment: Canc elled via OM: Order cancelled - Patient discharged Performed By: #### L 100.0100, L500.2500 ####[facility] [address] [place], [address] GAP Normal 5-15 [facility] Comment on above: Result Comment: Canc elled via OM: Order cancelled - Patient discharged Performed By: #### L 100.0100, L500.2500 ####[facility] [address] [place], [address] GLU Normal 70-99 [facility] Comment on above: Result Comment: Canc elled via OM: Order cancelled - Patient discharged Performed By: #### L 100.0100, L500.2500 ####[facility] [address] [place], [address] Potassium Normal 3.3-5.1 [facility] Comment on above: Result Comment: Canc elled via OM: Order cancelled - Patient discharged Performed By: #### L 100.0100, L500.2500 ####[facility] [address] [place], [address] Basic Metabolic Profile (BMP) Normal 133-145 [facility] Comment on above: Result Comment: Canc elled via OM: Order cancelled - Patient discharged Performed By: #### L 100.0100, L500.2500 ####[facility] [address] [place], [address] CBC W/Diff, Automatedon 09-2 Absolute Neut Normal 2.0-7.7 [facility] Comment on above: Result Comment: Canc elled via OM: Order cancelled - Patient discharged Performed By: #### L 100.0100, L500.2500 ####[facility] [address] [place], [address] HCT Normal 37-47 [facility] Comment on above: Result Comment: Canc elled via OM: Order cancelled - Patient discharged Performed By: #### L 100.0100, L500.2500 ####[facility] [address] [place], [address] HGB Normal 12.0-15.0 [facility] Comment on above: Result Comment: Canc elled via OM: Order cancelled - Patient discharged Performed By: #### L 100.0100, L500.2500 ####[facility] [address] [place], [address] MCH Normal 27.0-32.0 [facility] Comment on above: Result Comment: Canc elled via OM: Order cancelled - Patient discharged Performed By: #### L 100.0100, L500.2500 ####[facility] [address] [place], [address] MCHC Normal 32-36 [facility] Comment on above: Result Comment: Canc elled via OM: Order cancelled - Patient discharged Performed By: #### L 100.0100, L500.2500 ####[facility] [address] [place], [address] MCV Normal 81-99 [facility] Comment on above: Result Comment: Canc elled via OM: Order cancelled - Patient discharged Performed By: #### L 100.0100, L500.2500 ####[facility] [address] [place], [address] NEUT% Normal 47-70 [facility] Comment on above: Result Comment: Canc elled via OM: Order cancelled - Patient discharged Performed By: #### L 100.0100, L500.2500 ####[facility] [address] [place], [address] PLT Normal 150-450 [facility] Comment on above: Result Comment: Canc elled via OM: Order cancelled - Patient discharged Performed By: #### L 100.0100, L500.2500 ####[facility] [address] [place], [address] RBC Normal 4.2-5.4 [facility] Comment on above: Result Comment: Canc elled via OM: Order cancelled - Patient discharged Performed By: #### L 100.0100, L500.2500 ####[facility] [address] [place], [address] RDW CV Normal 11.6-14.6 [facility] Comment on above: Result Comment: Canc elled via OM: Order cancelled - Patient discharged Performed By: #### L 100.0100, L500.2500 ####[facility] [address] [place], [address] RDW SD Normal 35.1-43.9 [facility] Comment on above: Result Comment: Canc elled via OM: Order cancelled - Patient discharged Performed By: #### L 100.0100, L500.2500 ####[facility] [address] [place], [address] WBC Normal 4.4-11.0 [facility] Comment on above: Result Comment: Canc elled via OM: Order cancelled - Patient discharged Performed By: #### L 100.0100, L500.2500 ####[facility] [address] [place], [address] Basic Metabolic Profile (BMP )on 10-29-2024 BUN Normal 4-19 [facility] Comment on above: Result Comment: Canc elled via OM: Order cancelled - Patient discharged Performed By: #### L 500.2500, L100.0100 ####[facility] [address] [place], [address] BUN/CRE Normal 10-20 [facility] Comment on above: Result Comment: Canc elled via OM: Order cancelled - Patient discharged Performed By: #### L 500.2500, L100.0100 ####[facility] [address] [place], [address] Calcium Normal 7.6-11.0 [facility] Comment on above: Result Comment: Canc elled via OM: Order cancelled - Patient discharged Performed By: #### L 500.2500, L100.0100 ####[facility] [address] [place], [address] CL Normal 98-108 [facility] Comment on above: Result Comment: Canc elled via OM: Order cancelled - Patient discharged Performed By: #### L 500.2500, L100.0100 ####[facility] [address] [place], [address] CO2 Normal 21.0-32.0 [facility] Comment on above: Result Comment: Canc elled via OM: Order cancelled - Patient discharged Performed By: #### L 500.2500, L100.0100 ####[facility] [address] [place], [address] CREAT,SERUM Normal 0.70-1.20 [facility] Comment on above: Result Comment: Canc elled via OM: Order cancelled - Patient discharged Performed By: #### L 500.2500, L100.0100 ####[facility] [address] [place], [address] eGFR Normal >60 [facility] Comment on above: Result Comment: Canc elled via OM: Order cancelled - Patient discharged Performed By: #### L 500.2500, L100.0100 ####[facility] [address] [place], [address] GAP Normal 5-15 [facility] Comment on above: Result Comment: Canc elled via OM: Order cancelled - Patient discharged Performed By: #### L 500.2500, L100.0100 ####[facility] [address] [place], [address] GLU Normal 70-99 [facility] Comment on above: Result Comment: Canc elled via OM: Order cancelled - Patient discharged Performed By: #### L 500.2500, L100.0100 ####[facility] [address] [place], [address] Potassium Normal 3.3-5.1 [facility] Comment on above: Result Comment: Canc elled via OM: Order cancelled - Patient discharged Performed By: #### L 500.2500, L100.0100 ####[facility] [address] [place], [address] Basic Metabolic Profile (BMP) Normal 133-145 [facility] Comment on above: Result Comment: Canc elled via OM: Order cancelled - Patient discharged Performed By: #### L 500.2500, L100.0100 ####[facility] [address] [place], [address] CBC W/Diff, Automatedon 09-2 -2024 Absolute Neut Normal 2.0-7.7 [facility] Comment on above: Result Comment: Canc elled via OM: Order cancelled - Patient discharged Performed By: #### L 500.2500, L100.0100 ####[facility] [address] [place], [address] HCT Normal 37-47 [facility] Comment on above: Result Comment: Canc elled via OM: Order cancelled - Patient discharged Performed By: #### L 500.2500, L100.0100 ####[facility] [address] [place], [address] HGB Normal 12.0-15.0 [facility] Comment on above: Result Comment: Canc elled via OM: Order cancelled - Patient discharged Performed By: #### L 500.2500, L100.0100 ####[facility] [address] [place], [address] MCH Normal 27.0-32.0 [facility] Comment on above: Result Comment: Canc elled via OM: Order cancelled - Patient discharged Performed By: #### L 500.2500, L100.0100 ####[facility] [address] [place], [address] MCHC Normal 32-36 [facility] Comment on above: Result Comment: Canc elled via OM: Order cancelled - Patient discharged Performed By: #### L 500.2500, L100.0100 ####[facility] [address] [place], [address] MCV Normal 81-99 [facility] Comment on above: Result Comment: Canc elled via OM: Order cancelled - Patient discharged Performed By: #### L 500.2500, L100.0100 ####[facility] [address] [place], [address] NEUT% Normal 47-70 [facility] Comment on above: Result Comment: Canc elled via OM: Order cancelled - Patient discharged Performed By: #### L 500.2500, L100.0100 ####[facility] [address] [place], [address] PLT Normal 150-450 [facility] Comment on above: Result Comment: Canc elled via OM: Order cancelled - Patient discharged Performed By: #### L 500.2500, L100.0100 ####[facility] [address] [place], [address] RBC Normal 4.2-5.4 [facility] Comment on above: Result Comment: Canc elled via OM: Order cancelled - Patient discharged Performed By: #### L 500.2500, L100.0100 ####[facility] [address] [place], [address] RDW CV Normal 11.6-14.6 [facility] Comment on above: Result Comment: Canc elled via OM: Order cancelled - Patient discharged Performed By: #### L 500.2500, L100.0100 ####[facility] [address] [place], [address] RDW SD Normal 35.1-43.9 [facility] Comment on above: Result Comment: Canc elled via OM: Order cancelled - Patient discharged Performed By: #### L 500.2500, L100.0100 ####[facility] [address] [place], [address] WBC Normal 4.4-11.0 [facility] Comment on above: Result Comment: Canc elled via OM: Order cancelled - Patient discharged Performed By: #### L 500.2500, L100.0100 ####[facility] [address] [place], [address] Basic Metabolic Profile (BMP )on 10-28-2024 BUN Normal 4-19 [facility] Comment on above: Result Comment: Canc elled via OM: Order cancelled - Patient discharged Performed By: #### L 500.2500, L100.0100 ####[facility] [address] [place], [address] BUN/CRE Normal 10-20 [facility] Comment on above: Result Comment: Canc elled via OM: Order cancelled - Patient discharged Performed By: #### L 500.2500, L100.0100 ####[facility] [address] [place], [address] Calcium Normal 7.6-11.0 [facility] Comment on above: Result Comment: Canc elled via OM: Order cancelled - Patient discharged Performed By: #### L 500.2500, L100.0100 ####[facility] [address] [place], [address] CL Normal 98-108 [facility] Comment on above: Result Comment: Canc elled via OM: Order cancelled - Patient discharged Performed By: #### L 500.2500, L100.0100 ####[facility] [address] [place], [address] CO2 Normal 21.0-32.0 [facility] Comment on above: Result Comment: Canc elled via OM: Order cancelled - Patient discharged Performed By: #### L 500.2500, L100.0100 ####[facility] [address] [place], [address] CREAT,SERUM Normal 0.70-1.20 [facility] Comment on above: Result Comment: Canc elled via OM: Order cancelled - Patient discharged Performed By: #### L 500.2500, L100.0100 ####[facility] [address] [place], [address] eGFR Normal >60 [facility] Comment on above: Result Comment: Canc elled via OM: Order cancelled - Patient discharged Performed By: #### L 500.2500, L100.0100 ####[facility] [address] [place], [address] GAP Normal 5-15 [facility] Comment on above: Result Comment: Canc elled via OM: Order cancelled - Patient discharged Performed By: #### L 500.2500, L100.0100 ####[facility] [address] [place], [address] GLU Normal 70-99 [facility] Comment on above: Result Comment: Canc elled via OM: Order cancelled - Patient discharged Performed By: #### L 500.2500, L100.0100 ####[facility] [address] [place], [address] Potassium Normal 3.3-5.1 [facility] Comment on above: Result Comment: Canc elled via OM: Order cancelled - Patient discharged Performed By: #### L 500.2500, L100.0100 ####[facility] [address] [place], [address] Basic Metabolic Profile (BMP) Normal 133-145 [facility] Comment on above: Result Comment: Canc elled via OM: Order cancelled - Patient discharged Performed By: #### L 500.2500, L100.0100 ####[facility] [address] [place], [address] CBC W/Diff, Automatedon 09-2 Absolute Neut Normal 2.0-7.7 [facility] Comment on above: Result Comment: Canc elled via OM: Order cancelled - Patient discharged Performed By: #### L 500.2500, L100.0100 ####[facility] [address] [place], [address] HCT Normal 37-47 [facility] Comment on above: Result Comment: Canc elled via OM: Order cancelled - Patient discharged Performed By: #### L 500.2500, L100.0100 ####[facility] [address] [place], [address] HGB Normal 12.0-15.0 [facility] Comment on above: Result Comment: Canc elled via OM: Order cancelled - Patient discharged Performed By: #### L 500.2500, L100.0100 ####[facility] [address] [place], [address] MCH Normal 27.0-32.0 [facility] Comment on above: Result Comment: Canc elled via OM: Order cancelled - Patient discharged Performed By: #### L 500.2500, L100.0100 ####[facility] [address] [place], [address] MCHC Normal 32-36 [facility] Comment on above: Result Comment: Canc elled via OM: Order cancelled - Patient discharged Performed By: #### L 500.2500, L100.0100 ####[facility] [address] [place], [address] MCV Normal 81-99 [facility] Comment on above: Result Comment: Canc elled via OM: Order cancelled - Patient discharged Performed By: #### L 500.2500, L100.0100 ####[facility] [address] [place], [address] NEUT% Normal 47-70 [facility] Comment on above: Result Comment: Canc elled via OM: Order cancelled - Patient discharged Performed By: #### L 500.2500, L100.0100 ####[facility] [address] [place], [address] PLT Normal 150-450 [facility] Comment on above: Result Comment: Canc elled via OM: Order cancelled - Patient discharged Performed By: #### L 500.2500, L100.0100 ####[facility] [address] [place], [address] RBC Normal 4.2-5.4 [facility] Comment on above: Result Comment: Canc elled via OM: Order cancelled - Patient discharged Performed By: #### L 500.2500, L100.0100 ####[facility] [address] [place], [address] RDW CV Normal 11.6-14.6 [facility] Comment on above: Result Comment: Canc elled via OM: Order cancelled - Patient discharged Performed By: #### L 500.2500, L100.0100 ####[facility] [address] [place], [address] RDW SD Normal 35.1-43.9 [facility] Comment on above: Result Comment: Canc elled via OM: Order cancelled - Patient discharged Performed By: #### L 500.2500, L100.0100 ####[facility] [address] [place], [address] WBC Normal 4.4-11.0 [facility] Comment on above: Result Comment: Canc elled via OM: Order cancelled - Patient discharged Performed By: #### L 500.2500, L100.0100 ####[facility] [address] [place], [address] Basic Metabolic Profile (BMP )on 10-27-2024 BUN Normal - [facility] Comment on above: Result Comment: Canc elled via OM: Order cancelled - Patient discharged Performed By: #### L 500.2500, L100.0100, L300.3900 ####[facility] [address] [place], [address] BUN/CRE Normal - [facility] Comment on above: Result Comment: Canc elled via OM: Order cancelled - Patient discharged Performed By: #### L 500.2500, L100.0100, L300.3900 ####[facility] [address] [place], [address] Calcium Normal 7.6-11.0 [facility] Comment on above: Result Comment: Canc elled via OM: Order cancelled - Patient discharged Performed By: #### L 500.2500, L100.0100, L300.3900 ####[facility] [address] [place], [address] CL Normal 98-108 [facility] Comment on above: Result Comment: Canc elled via OM: Order cancelled - Patient discharged Performed By: #### L 500.2500, L100.0100, L300.3900 ####[facility] [address] [place], [address] CO2 Normal 21.0-32.0 [facility] Comment on above: Result Comment: Canc elled via OM: Order cancelled - Patient discharged Performed By: #### L 500.2500, L100.0100, L300.3900 ####[facility] [address] [place], [address] CREAT,SERUM Normal 0.70-1.20 [facility] Comment on above: Result Comment: Canc elled via OM: Order cancelled - Patient discharged Performed By: #### L 500.2500, L100.0100, L300.3900 ####[facility] [address] [place], [address] eGFR Normal >60 [facility] Comment on above: Result Comment: Canc elled via OM: Order cancelled - Patient discharged Performed By: #### L 500.2500, L100.0100, L300.3900 ####[facility] [address] [place], [address] GAP Normal 5-15 [facility] Comment on above: Result Comment: Canc elled via OM: Order cancelled - Patient discharged Performed By: #### L 500.2500, L100.0100, L300.3900 ####[facility] [address] [place], [address] GLU Normal 70-99 [facility] Comment on above: Result Comment: Canc elled via OM: Order cancelled - Patient discharged Performed By: #### L 500.2500, L100.0100, L300.3900 ####[facility] [address] [place], [address] Potassium Normal 3.3-5.1 [facility] Comment on above: Result Comment: Canc elled via OM: Order cancelled - Patient discharged Performed By: #### L 500.2500, L100.0100, L300.3900 ####[facility] [address] [place], [address] Basic Metabolic Profile (BMP) Normal 133-145 [facility] Comment on above: Result Comment: Canc elled via OM: Order cancelled - Patient discharged Performed By: #### L 500.2500, L100.0100, L300.3900 ####[facility] [address] [place], [address] CBC W/Diff, Automatedon 09-2 0-2024 Absolute Neut Normal 2.0-7.7 [facility] Comment on above: Result Comment: Canc elled via OM: Order cancelled - Patient discharged Performed By: #### L 500.2500, L100.0100, L300.3900 ####[facility] [address] [place], [address] HCT Normal 37-47 [facility] Comment on above: Result Comment: Canc elled via OM: Order cancelled - Patient discharged Performed By: #### L 500.2500, L100.0100, L300.3900 ####[facility] [address] [place], [address] HGB Normal 12.0-15.0 [facility] Comment on above: Result Comment: Canc elled via OM: Order cancelled - Patient discharged Performed By: #### L 500.2500, L100.0100, L300.3900 ####[facility] [address] [place], [address] MCH Normal 27.0-32.0 [facility] Comment on above: Result Comment: Canc elled via OM: Order cancelled - Patient discharged Performed By: #### L 500.2500, L100.0100, L300.3900 ####[facility] [address] [place], [address] MCHC Normal 32-36 [facility] Comment on above: Result Comment: Canc elled via OM: Order cancelled - Patient discharged Performed By: #### L 500.2500, L100.0100, L300.3900 ####[facility] [address] [place], [address] MCV Normal 81-99 [facility] Comment on above: Result Comment: Canc elled via OM: Order cancelled - Patient discharged Performed By: #### L 500.2500, L100.0100, L300.3900 ####[facility] [address] [place], [address] NEUT% Normal 47-70 [facility] Comment on above: Result Comment: Canc elled via OM: Order cancelled - Patient discharged Performed By: #### L 500.2500, L100.0100, L300.3900 ####[facility] [address] [place], [address] PLT Normal 150-450 [facility] Comment on above: Result Comment: Canc elled via OM: Order cancelled - Patient discharged Performed By: #### L 500.2500, L100.0100, L300.3900 ####[facility] [address] [place], [address] RBC Normal 4.2-5.4 [facility] Comment on above: Result Comment: Canc elled via OM: Order cancelled - Patient discharged Performed By: #### L 500.2500, L100.0100, L300.3900 ####[facility] [address] [place], [address] RDW CV Normal 11.6-14.6 [facility] Comment on above: Result Comment: Canc elled via OM: Order cancelled - Patient discharged Performed By: #### L 500.2500, L100.0100, L300.3900 ####[facility] [address] [place], [address] RDW SD Normal 35.1-43.9 [facility] Comment on above: Result Comment: Canc elled via OM: Order cancelled - Patient discharged Performed By: #### L 500.2500, L100.0100, L300.3900 ####[facility] [address] [place], [address] WBC Normal 4.4-11.0 [facility] Comment on above: Result Comment: Canc elled via OM: Order cancelled - Patient discharged Performed By: #### L 500.2500, L100.0100, L300.3900 ####[facility] [address] [place], [address] Prothrombin Time w/INRon INR Normal [facility] Comment on above: Result Comment: Canc elled via OM: Order cancelled - Patient discharged Performed By: #### L 500.2500, L100.0100, L300.3900 ####[facility] [address] [place], [address] PROTIME Normal 11.7-14.9 [facility] Comment on above: Result Comment: Canc elled via OM: Order cancelled - Patient discharged Performed By: #### L 500.2500, L100.0100, L300.3900 ####[facility] [address] [place], [address] Basic Metabolic Profile (BMP )on 10-26-2024 BUN Normal - [facility] Comment on above: Result Comment: Canc elled via OM: Order cancelled - Patient discharged Performed By: #### L 100.0100, L500.2500, L300.3900 ####[facility] [address] [place], [address] BUN/CRE Normal - [facility] Comment on above: Result Comment: Canc elled via OM: Order cancelled - Patient discharged Performed By: #### L 100.0100, L500.2500, L300.3900 ####[facility] [address] [place], [address] Calcium Normal 7.6-11.0 [facility] Comment on above: Result Comment: Canc elled via OM: Order cancelled - Patient discharged Performed By: #### L 100.0100, L500.2500, L300.3900 ####[facility] [address] [place], [address] CL Normal 98-108 [facility] Comment on above: Result Comment: Canc elled via OM: Order cancelled - Patient discharged Performed By: #### L 100.0100, L500.2500, L300.3900 ####[facility] [address] [place], [address] CO2 Normal 21.0-32.0 [facility] Comment on above: Result Comment: Canc elled via OM: Order cancelled - Patient discharged Performed By: #### L 100.0100, L500.2500, L300.3900 ####[facility] [address] [place], [address] CREAT,SERUM Normal 0.70-1.20 [facility] Comment on above: Result Comment: Canc elled via OM: Order cancelled - Patient discharged Performed By: #### L 100.0100, L500.2500, L300.3900 ####[facility] [address] [place], [address] eGFR Normal >60 [facility] Comment on above: Result Comment: Canc elled via OM: Order cancelled - Patient discharged Performed By: #### L 100.0100, L500.2500, L300.3900 ####[facility] [address] [place], [address] GAP Normal 5-15 [facility] Comment on above: Result Comment: Canc elled via OM: Order cancelled - Patient discharged Performed By: #### L 100.0100, L500.2500, L300.3900 ####[facility] [address] [place], [address] GLU Normal 70-99 [facility] Comment on above: Result Comment: Canc elled via OM: Order cancelled - Patient discharged Performed By: #### L 100.0100, L500.2500, L300.3900 ####[facility] [address] [place], [address] Potassium Normal 3.3-5.1 [facility] Comment on above: Result Comment: Canc elled via OM: Order cancelled - Patient discharged Performed By: #### L 100.0100, L500.2500, L300.3900 ####[facility] [address] [place], [address] Basic Metabolic Profile (BMP) Normal 133-145 [facility] Comment on above: Result Comment: Canc elled via OM: Order cancelled - Patient discharged Performed By: #### L 100.0100, L500.2500, L300.3900 ####[facility] [address] [place], [address] CBC W/Diff, Automatedon 09-1 Absolute Neut Normal 2.0-7.7 [facility] Comment on above: Result Comment: Canc elled via OM: Order cancelled - Patient discharged Performed By: #### L 100.0100, L500.2500, L300.3900 ####[facility] [address] [place], [address] HCT Normal 37-47 [facility] Comment on above: Result Comment: Canc elled via OM: Order cancelled - Patient discharged Performed By: #### L 100.0100, L500.2500, L300.3900 ####[facility] [address] [place], [address] HGB Normal 12.0-15.0 [facility] Comment on above: Result Comment: Canc elled via OM: Order cancelled - Patient discharged Performed By: #### L 100.0100, L500.2500, L300.3900 ####[facility] [address] [place], [address] MCH Normal 27.0-32.0 [facility] Comment on above: Result Comment: Canc elled via OM: Order cancelled - Patient discharged Performed By: #### L 100.0100, L500.2500, L300.3900 ####[facility] [address] [place], [address] MCHC Normal 32-36 [facility] Comment on above: Result Comment: Canc elled via OM: Order cancelled - Patient discharged Performed By: #### L 100.0100, L500.2500, L300.3900 ####[facility] [address] [place], [address] MCV Normal 81-99 [facility] Comment on above: Result Comment: Canc elled via OM: Order cancelled - Patient discharged Performed By: #### L 100.0100, L500.2500, L300.3900 ####[facility] [address] [place], [address] NEUT% Normal 47-70 [facility] Comment on above: Result Comment: Canc elled via OM: Order cancelled - Patient discharged Performed By: #### L 100.0100, L500.2500, L300.3900 ####[facility] [address] [place], [address] PLT Normal 150-450 [facility] Comment on above: Result Comment: Canc elled via OM: Order cancelled - Patient discharged Performed By: #### L 100.0100, L500.2500, L300.3900 ####[facility] [address] [place], [address] RBC Normal 4.2-5.4 [facility] Comment on above: Result Comment: Canc elled via OM: Order cancelled - Patient discharged Performed By: #### L 100.0100, L500.2500, L300.3900 ####[facility] [address] [place], [address] RDW CV Normal 11.6-14.6 [facility] Comment on above: Result Comment: Canc elled via OM: Order cancelled - Patient discharged Performed By: #### L 100.0100, L500.2500, L300.3900 ####[facility] [address] [place], [address] RDW SD Normal 35.1-43.9 [facility] Comment on above: Result Comment: Canc elled via OM: Order cancelled - Patient discharged Performed By: #### L 100.0100, L500.2500, L300.3900 ####[facility] [address] [place], [address] WBC Normal 4.4-11.0 [facility] Comment on above: Result Comment: Canc elled via OM: Order cancelled - Patient discharged Performed By: #### L 100.0100, L500.2500, L300.3900 ####[facility] [address] [place], [address] Prothrombin Time w/INRon INR Normal [facility] Comment on above: Result Comment: Canc elled via OM: Order cancelled - Patient discharged Performed By: #### L 100.0100, L500.2500, L300.3900 ####[facility] [address] [place], [address] PROTIME Normal 11.7-14.9 [facility] Comment on above: Result Comment: Canc elled via OM: Order cancelled - Patient discharged Performed By: #### L 100.0100, L500.2500, L300.3900 ####[facility] [address] [place], [address] Absolute lymphocyte countOrd ered By: Rosalva Ortez on 10-25-2024 Lymphocytes Auto (Unsp spec) [#/Vol] 2.36 10*3/uL 0.83-4.51 [facility] Absolute neutrophil countOrd ered By: Rosalva Ortez on 10-25-2024 Neutrophils (Bld) [#/Vol] 4.2 10*3/uL 2.0-7.7 [facility] Anion gap in Serum or Plasma Ordered By: Rosalva Niisra on 10-25-2024 Anion gap [Moles/Vol] 12 mmol/L 5-15 [facility] Automated lymphocyte count a s percentage of total leukocytesOrdered By: Rosalva Ortez on 10-25-2024 Lymphocytes/100 WBC Auto (Unsp spec) 31.9 % - [facility] BUN/creatinine ratioOrdered By: Rosalva Niisra on 10-25-2024 Urea nitrogen/Creatinine [Mass ratio] 32.2 mg/mg High - [facility] Basic Metabolic Profile (BMP )on 10-25-2024 BUN/CRE 32.2 RATIO High - [facility] Comment on above: Performed By: #### L 500.2500, L100.0100, L300.3900 ####[facility] [address] [place], [address] Calcium [Mass/Vol] 9.2 mg/dL Normal 7.6-11.0 [facility] Comment on above: Performed By: #### L 500.2500, L100.0100, L300.3900 ####[facility] [address] [place], [address] Chloride [Moles/Vol] 103 mmol/L Normal 98-108 [facility] Comment on above: Performed By: #### L 500.2500, L100.0100, L300.3900 ####[facility] [address] [place], [address] CO2 [Moles/Vol] 23.3 mmol/L Normal 21.0-32.0 [facility] Comment on above: Performed By: #### L 500.2500, L100.0100, L300.3900 ####[facility] [address] [place], [address] Creatinine [Mass/Vol] 0.48 mg/dL Low 0.70-1.20 [facility] Comment on above: Performed By: #### L 500.2500, L100.0100, L300.3900 ####[facility] [address] [place], [address] ECRCL 45.85 ml/min Low 50-250 [facility] Comment on above: Performed By: #### L 500.2500, L100.0100, L300.3900 ####[facility] [address] [place], [address] GAP 12 Normal 5-15 [facility] Comment on above: Performed By: #### L 500.2500, L100.0100, L300.3900 ####[facility] [address] [place], [address] GFR/1.73 sq M.predicted among non-blacks MDRD (S/P/Bld) [Vol rate/Area] 99 mL/min/{1.73_m2} Normal >60 [facility] Comment on above: Result Comment: mL/m in/1.73m2 CKD-EPI Creatinine Equation (2020) Performed By: #### L 500.2500, L100.0100, L300.3900 ####[facility] [address] [place], [address] Glucose [Mass/Vol] 119 mg/dL High 70-99 [facility] Comment on above: Performed By: #### L 500.2500, L100.0100, L300.3900 ####[facility] [address] [place], [address] Potassium [Moles/Vol] 3.4 mmol/L Normal 3.3-5.1 [facility] Comment on above: Performed By: #### L 500.2500, L100.0100, L300.3900 ####[facility] [address] [place], [address] Sodium [Moles/Vol] 139 mmol/L Normal 133-145 [facility] Comment on above: Performed By: #### L 500.2500, L100.0100, L300.3900 ####[facility] [address] [place], [address] Urea nitrogen [Mass/Vol] 16 mg/dL Normal 4-19 [facility] Comment on above: Performed By: #### L 500.2500, L100.0100, L300.3900 ####[facility] [address] [place], [address] Basophil percentageOrdered B y: Rosalvayaakov Niisra on 10-25-2024 Basophils/100 WBC (Bld) 0.8 % 0-1 [facility] CBC W/Diff, Automatedon 10-08 Absolute Lymph 2.36 X10 3/uL Normal 0.83-4.51 [facility] Comment on above: Performed By: #### L 500.2500, L100.0100, L300.3900 ####[facility] [address] [place], [address] Absolute Neut 4.2 X10 3/uL Normal 2.0-7.7 [facility] Comment on above: Performed By: #### L 500.2500, L100.0100, L300.3900 ####[facility] [address] [place], [address] Basophils/100 WBC (Bld) 0.8 % Normal 0-1 [facility] Comment on above: Performed By: #### L 500.2500, L100.0100, L300.3900 ####[facility] [address] [place], [address] Eosinophils/100 WBC (Bld) 0.4 % Normal 0-5 [facility] Comment on above: Performed By: #### L 500.2500, L100.0100, L300.3900 ####[facility] [address] [place], [address] Erythrocyte distribution width (RBC) [Ratio] 12.6 % Normal 11.6-14.6 [facility] Comment on above: Performed By: #### L 500.2500, L100.0100, L300.3900 ####[facility] [address] [place], [address] Hematocrit (Bld) [Volume fraction] 40.9 % Normal 37-47 [facility] Comment on above: Performed By: #### L 500.2500, L100.0100, L300.3900 ####[facility] [address] [place], [address] Hemoglobin (Bld) [Mass/Vol] 14.2 g/dL Normal 12.0-15.0 [facility] Comment on above: Performed By: #### L 500.2500, L100.0100, L300.3900 ####[facility] [address] [place], [address] IG% 0.400 Normal 0.0-0.9 [facility] Comment on above: Result Comment: IG% - Immature Granulocytes (promyelocytes, myelocytes andmetamyelocytes) > 1% indicates that a LEFT SHIFT is Present. Performed By: #### L 500.2500, L100.0100, L300.3900 ####[facility] [address] [place], [address] Lymphocytes/100 WBC (Bld) 31.9 % Normal 19-41 [facility] Comment on above: Performed By: #### L 500.2500, L100.0100, L300.3900 ####[facility] [address] [place], [address] MCH (RBC) [Entitic mass] 32.3 pg High 27.0-32.0 [facility] Comment on above: Performed By: #### L 500.2500, L100.0100, L300.3900 ####[facility] [address] [place], [address] MCHC (RBC) [Mass/Vol] 34.7 g/dL Normal 32-36 [facility] Comment on above: Performed By: #### L 500.2500, L100.0100, L300.3900 ####[facility] [address] [place], [address] MCV (RBC) [Entitic vol] 93.0 fL Normal 81-99 [facility] Comment on above: Performed By: #### L 500.2500, L100.0100, L300.3900 ####[facility] [address] [place], [address] Monocytes/100 WBC (Bld) 9.3 % Normal 0-10 [facility] Comment on above: Performed By: #### L 500.2500, L100.0100, L300.3900 ####[facility] [address] [place], [address] Neutrophils/100 WBC (Bld) 57.2 % Normal 47-70 [facility] Comment on above: Performed By: #### L 500.2500, L100.0100, L300.3900 ####[facility] [address] [place], [address] Nucleated RBC (Bld) [#/Vol] 0 10*3/uL Normal 0-5 [facility] Comment on above: Performed By: #### L 500.2500, L100.0100, L300.3900 ####[facility] [address] [place], [address] Platelet mean volume (Bld) [Entitic vol] 10.3 fL Normal 6.2-12.0 [facility] Comment on above: Performed By: #### L 500.2500, L100.0100, L300.3900 ####[facility] [address] [place], [address] Platelets (Bld) [#/Vol] 179 10*3/uL Normal 150-450 [facility] Comment on above: Performed By: #### L 500.2500, L100.0100, L300.3900 ####[facility] [address] [place], [address] RBC (Bld) [#/Vol] 4.40 10*6/uL Normal 4.2-5.4 [facility] Comment on above: Performed By: #### L 500.2500, L100.0100, L300.3900 ####[facility] [address] [place], [address] RDW SD 43.3 fl Normal 35.1-43.9 [facility] Comment on above: Performed By: #### L 500.2500, L100.0100, L300.3900 ####[facility] [address] [place], [address] WBC (Bld) [#/Vol] 7.4 10*3/uL Normal 4.4-11.0 [facility] Comment on above: Performed By: #### L 500.2500, L100.0100, L300.3900 ####[facility] [address] [place], [address] Carbon dioxide, total [Moles /volume] in Central venous bloodOrdered By: Rosalva Ortez on 10-25-2024 CO2 [Moles/Vol] 23.3 mmol/L 21.0-32.0 [facility] Chloride assayOrdered By: Chel Ortez on 10-25-2024 Chloride [Moles/Vol] 103 mmol/L 98-108 [facility] Discharge Instructionon 10-08 Discharge Instruction Normal [facility] Eosinophil percentageOrdered By: Rosalva Ortez on 10-25-2024 Eosinophils/100 WBC (Bld) 0.4 % 0-5 [facility] Erythrocyte distribution wid th ratioOrdered By: Rosalva Ortez on 10-25-2024 Erythrocyte distribution width (RBC) [Ratio] 12.6 % 11.6-14.6 [facility] Erythrocyte distribution wid th standard deviationOrdered By: Rosalva Ortez on 10-25-2024 Erythrocyte distribution width (RBC) [Ratio] 43.3 fl 35.1-43.9 [facility] Glomerular filtration rate ( GFR) estimation/1.73 sq m using serum, plasma, or whole bOrdered By: Rosalva Ortez on 10-25-2024 GFR/1.73 sq M.predicted among non-blacks MDRD (S/P/Bld) [Vol rate/Area] 99 mL/min/{1.73_m2} >60 [facility] Comment on above: mL/min/1.73m2 CKD-EP I Creatinine Equation (2020) Hematocrit Auto (Bld) [Volum e fraction]Ordered By: Rosalva Ortez on 10-25-2024 Hematocrit (Bld) [Volume fraction] 40.9 % 37-47 [facility] Hemoglobin measurementOrdere d By: Rosalva Ortez on 10-25-2024 Hemoglobin (Bld) [Mass/Vol] 14.2 g/dL 12.0-15.0 [facility] Immature granulocytes/100 WB C Auto (Bld)Ordered By: Rosalva Ortez on 10-25-2024 Immature granulocytes/100 WBC (Bld) 0.400 % 0.0-0.9 [facility] Comment on above: IG% - Immature Granu locytes (promyelocytes, myelocytes and metamyelocytes) > 1% indicates that a LEFT SHIFT is Present. International normalized rat io (INR) calculationOrdered By: Rosalva Ortez on 10-25-2024 INR Coag (Bld) [Relative time] 1.9 {INR} [facility] MCV (mean corpuscular volume ) determinationOrdered By: Rosalva Ortez on 10-25-2024 MCV (RBC) [Entitic vol] 93.0 fL 81-99 [facility] Mean corpuscular hemoglobin (MCH) determinationOrdered By: Rosalva Ortez on 10-25-2024 MCH (RBC) [Entitic mass] 32.3 pg High 27.0-32.0 [facility] Mean corpuscular hemoglobin concentration (MCHC) determinationOrdered By: Rosalva Ortez on 10-25-2024 MCHC (RBC) [Mass/Vol] 34.7 g/dL 32-36 [facility] Mean platelet volume determi nationOrdered By: Rosalva Ortez on 10-25-2024 Platelet mean volume (Bld) [Entitic vol] 10.3 fL 6.2-12.0 [facility] Monocyte percentageOrdered B y: Rosalva Ortez on 10-25-2024 Monocytes/100 WBC (Bld) 9.3 % 0-10 [facility] Neutrophil percentageOrdered By: Rosalva Ortez on 10-25-2024 Neutrophils/100 WBC (Bld) 57.2 % 47-70 [facility] Nucleated red blood cell per centageOrdered By: Rosalva Ortez on 10-25-2024 Nucleated RBC/100 WBC (Bld) [Ratio] 0 % 0-5 [facility] Platelet countOrdered By: Na chel Ortez on 10-25-2024 Platelets (Bld) [#/Vol] 179 10*3/uL 150-450 [facility] Potassium measurement (mass/ volume)Ordered By: Rosalva Ortez on 10-25-2024 Potassium (Unsp spec) [Mass/Vol] 3.4 mmol/L 3.3-5.1 [facility] Prothrombin Time w/INRon INR Coag (PPP) [Relative time] 1.9 {INR} Normal [facility] Comment on above: Performed By: #### L 500.2500, L100.0100, L300.3900 ####[facility] [address] [place], [place], [id number] PT Coag (PPP) [Time] 22.0 s High 11.7-14.9 [facility] Comment on above: Performed By: #### L 500.2500, L100.0100, L300.3900 ####[facility] [address] [place], [place], [id number] Prothrombin timeOrdered By: Rosalva Ortez on 10-25-2024 PT Coag (PPP) [Time] 22.0 s High 11.7-14.9 [facility] RBC Auto (Bld) [#/Vol]Ordere d By: Rosalva Ortez on 10-25-2024 RBC (Bld) [#/Vol] 4.40 10*6/uL 4.2-5.4 [facility] Serum creatinine measurement (mass/volume)Ordered By: Rosalva Ortez on 10-25-2024 Creatinine [Mass/Vol] 0.48 mg/dL Low 0.70-1.20 [facility] Serum glucose measurement (m ass/volume)Ordered By: Rosalva Ortez on 10-25-2024 Glucose [Mass/Vol] 119 mg/dL High 70-99 [facility] Serum or plasma calcium tres urement (mass/volume)Ordered By: Rosalva Ortez on 10-25-2024 Calcium [Mass/Vol] 9.2 mg/dL 7.6-11.0 [facility] Serum or plasma urea nitroge n measurement (mass/volume)Ordered By: Rosalva Ortez on 10-25-2024 Urea nitrogen [Mass/Vol] 16 mg/dL 4-19 [facility] Sodium levelOrdered By: Rosalva Ortez on 10-25-2024 Sodium [Moles/Vol] 139 mmol/L 133-145 [facility] White blood cell (WBC) count Ordered By: Rosalva Ortez on 10-25-2024 WBC (Bld) [#/Vol] 7.4 10*3/uL 4.4-11.0 [facility] Basic Metabolic Profile (BMP )on 10-24-2024 BUN/CRE 25.8 RATIO High 10-20 [facility] Comment on above: Performed By: #### L 100.0100, L500.2500, L300.3900 ####[facility] [address] [place], [address] Calcium [Mass/Vol] 9.2 mg/dL Normal 7.6-11.0 [facility] Comment on above: Performed By: #### L 100.0100, L500.2500, L300.3900 ####[facility] [address] [place], [address] Chloride [Moles/Vol] 105 mmol/L Normal 98-108 [facility] Comment on above: Performed By: #### L 100.0100, L500.2500, L300.3900 ####[facility] [address] [place], [address] CO2 [Moles/Vol] 23.3 mmol/L Normal 21.0-32.0 [facility] Comment on above: Performed By: #### L 100.0100, L500.2500, L300.3900 ####[facility] [address] [place], [address] Creatinine [Mass/Vol] 0.48 mg/dL Low 0.70-1.20 [facility] Comment on above: Performed By: #### L 100.0100, L500.2500, L300.3900 ####[facility] [address] [place], [address] ECRCL 45.85 ml/min Low 50-250 [facility] Comment on above: Performed By: #### L 100.0100, L500.2500, L300.3900 ####[facility] [address] [place], [address] GAP 14 Normal 5-15 [facility] Comment on above: Performed By: #### L 100.0100, L500.2500, L300.3900 ####[facility] [address] [place], [address] GFR/1.73 sq M.predicted among non-blacks MDRD (S/P/Bld) [Vol rate/Area] 99 mL/min/{1.73_m2} Normal >60 [facility] Comment on above: Result Comment: mL/m in/1.73m2 CKD-EPI Creatinine Equation (2020) Performed By: #### L 100.0100, L500.2500, L300.3900 ####[facility] [address] [place], [address] Glucose [Mass/Vol] 119 mg/dL High 70-99 [facility] Comment on above: Performed By: #### L 100.0100, L500.2500, L300.3900 ####[facility] [address] [place], [address] Potassium [Moles/Vol] 3.3 mmol/L Normal 3.3-5.1 [facility] Comment on above: Performed By: #### L 100.0100, L500.2500, L300.3900 ####[facility] [address] [place], [address] Sodium [Moles/Vol] 142 mmol/L Normal 133-145 [facility] Comment on above: Performed By: #### L 100.0100, L500.2500, L300.3900 ####[facility] [address] [place], [address] Urea nitrogen [Mass/Vol] 12 mg/dL Normal 4-19 [facility] Comment on above: Performed By: #### L 100.0100, L500.2500, L300.3900 ####[facility] [address] [place], [address] CBC W/Diff, Automatedon 10-08 Absolute Lymph 2.20 X10 3/uL Normal 0.83-4.51 [facility] Comment on above: Performed By: #### L 100.0100, L500.2500, L300.3900 ####[facility] [address] [place], [address] Absolute Neut 4.4 X10 3/uL Normal 2.0-7.7 [facility] Comment on above: Performed By: #### L 100.0100, L500.2500, L300.3900 ####[facility] [address] [place], [address] Basophils/100 WBC (Bld) 1.1 % High 0-1 [facility] Comment on above: Performed By: #### L 100.0100, L500.2500, L300.3900 ####[facility] [address] [place], [address] Eosinophils/100 WBC (Bld) 0.4 % Normal 0-5 [facility] Comment on above: Performed By: #### L 100.0100, L500.2500, L300.3900 ####[facility] [address] [place], [address] Erythrocyte distribution width (RBC) [Ratio] 12.7 % Normal 11.6-14.6 [facility] Comment on above: Performed By: #### L 100.0100, L500.2500, L300.3900 ####[facility] [address] [place], [address] Hematocrit (Bld) [Volume fraction] 41.2 % Normal 37-47 [facility] Comment on above: Performed By: #### L 100.0100, L500.2500, L300.3900 ####[facility] [address] [place], [address] Hemoglobin (Bld) [Mass/Vol] 14.8 g/dL Normal 12.0-15.0 [facility] Comment on above: Performed By: #### L 100.0100, L500.2500, L300.3900 ####[facility] [address] [place], [address] IG% 0.400 Normal 0.0-0.9 [facility] Comment on above: Result Comment: IG% - Immature Granulocytes (promyelocytes, myelocytes andmetamyelocytes) > 1% indicates that a LEFT SHIFT is Present. Performed By: #### L 100.0100, L500.2500, L300.3900 ####[facility] [address] [place], [address] Lymphocytes/100 WBC (Bld) 29.9 % Normal 19-41 [facility] Comment on above: Performed By: #### L 100.0100, L500.2500, L300.3900 ####[facility] [address] [place], [address] MCH (RBC) [Entitic mass] 32.8 pg High 27.0-32.0 [facility] Comment on above: Performed By: #### L 100.0100, L500.2500, L300.3900 ####[facility] [address] [place], [address] MCHC (RBC) [Mass/Vol] 35.9 g/dL Normal 32-36 [facility] Comment on above: Performed By: #### L 100.0100, L500.2500, L300.3900 ####[facility] [address] [place], [address] MCV (RBC) [Entitic vol] 91.4 fL Normal 81-99 [facility] Comment on above: Performed By: #### L 100.0100, L500.2500, L300.3900 ####[facility] [address] [place], [address] Monocytes/100 WBC (Bld) 8.6 % Normal 0-10 [facility] Comment on above: Performed By: #### L 100.0100, L500.2500, L300.3900 ####[facility] [address] [place], [address] Neutrophils/100 WBC (Bld) 59.6 % Normal 47-70 [facility] Comment on above: Performed By: #### L 100.0100, L500.2500, L300.3900 ####[facility] [address] [place], [address] Nucleated RBC (Bld) [#/Vol] 0 10*3/uL Normal 0-5 [facility] Comment on above: Performed By: #### L 100.0100, L500.2500, L300.3900 ####[facility] [address] [place], [address] Platelet mean volume (Bld) [Entitic vol] 10.1 fL Normal 6.2-12.0 [facility] Comment on above: Performed By: #### L 100.0100, L500.2500, L300.3900 ####[facility] [address] [place], [address] Platelets (Bld) [#/Vol] 194 10*3/uL Normal 150-450 [facility] Comment on above: Performed By: #### L 100.0100, L500.2500, L300.3900 ####[facility] [address] [place], [address] RBC (Bld) [#/Vol] 4.51 10*6/uL Normal 4.2-5.4 [facility] Comment on above: Performed By: #### L 100.0100, L500.2500, L300.3900 ####[facility] [address] [place], [address] RDW SD 42.6 fl Normal 35.1-43.9 [facility] Comment on above: Performed By: #### L 100.0100, L500.2500, L300.3900 ####[facility] [address] [place], [address] WBC (Bld) [#/Vol] 7.4 10*3/uL Normal 4.4-11.0 [facility] Comment on above: Performed By: #### L 100.0100, L500.2500, L300.3900 ####[facility] [address] [place], [address] Prothrombin Time w/INRon INR Coag (PPP) [Relative time] 1.3 {INR} Normal [facility] Comment on above: Performed By: #### L 100.0100, L500.2500, L300.3900 ####[facility] [address] [place], [address] PT Coag (PPP) [Time] 15.9 s High 11.7-14.9 [facility] Comment on above: Performed By: #### L 100.0100, L500.2500, L300.3900 ####[facility] [address] [place], [address] Basic Metabolic Profile (BMP )on 10-23-2024 BUN/CRE 16.6 RATIO Normal 10-20 [facility] Comment on above: Order Comment: Comme nts: NPO at [place] prior to lipid panel Performed By: #### L 300.3900, L100.0100, L500.2500, L500.4100 ####[facility] [address] [place], [address] Calcium [Mass/Vol] 9.0 mg/dL Normal 7.6-11.0 [facility] Comment on above: Order Comment: Comme nts: NPO at [place] prior to lipid panel Performed By: #### L 300.3900, L100.0100, L500.2500, L500.4100 ####[facility] [address] [place], [address] Chloride [Moles/Vol] 104 mmol/L Normal 98-108 [facility] Comment on above: Order Comment: Comme nts: NPO at [place] prior to lipid panel Performed By: #### L 300.3900, L100.0100, L500.2500, L500.4100 ####[facility] [address] [place], [address] CO2 [Moles/Vol] 24.4 mmol/L Normal 21.0-32.0 [facility] Comment on above: Order Comment: Comme nts: NPO at [place] prior to lipid panel Performed By: #### L 300.3900, L100.0100, L500.2500, L500.4100 ####[facility] [address] [place], [address] Creatinine [Mass/Vol] 0.51 mg/dL Low 0.70-1.20 [facility] Comment on above: Order Comment: Comme nts: NPO at [place] prior to lipid panel Performed By: #### L 300.3900, L100.0100, L500.2500, L500.4100 ####[facility] [address] [place], [address] ECRCL 45.85 ml/min Low 50-250 [facility] Comment on above: Order Comment: Comme nts: NPO at [place] prior to lipid panel Performed By: #### L 300.3900, L100.0100, L500.2500, L500.4100 ####[facility] [address] [place], [address] GAP 11 Normal 5-15 [facility] Comment on above: Order Comment: Comme nts: NPO at [place] prior to lipid panel Performed By: #### L 300.3900, L100.0100, L500.2500, L500.4100 ####[facility] [address] [place], [address] GFR/1.73 sq M.predicted among non-blacks MDRD (S/P/Bld) [Vol rate/Area] 97 mL/min/{1.73_m2} Normal >60 [facility] Comment on above: Order Comment: Comme nts: NPO at [place] prior to lipid panel Result Comment: mL/m in/1.73m2 CKD-EPI Creatinine Equation (2020) Performed By: #### L 300.3900, L100.0100, L500.2500, L500.4100 ####[facility] [address] [place], [address] Glucose [Mass/Vol] 108 mg/dL High 70-99 [facility] Comment on above: Order Comment: Comme nts: NPO at [place] prior to lipid panel Performed By: #### L 300.3900, L100.0100, L500.2500, L500.4100 ####[facility] [address] [place], [address] Potassium [Moles/Vol] 3.5 mmol/L Normal 3.3-5.1 [facility] Comment on above: Order Comment: Comme nts: NPO at [place] prior to lipid panel Performed By: #### L 300.3900, L100.0100, L500.2500, L500.4100 ####[facility] [address] [place], [address] Sodium [Moles/Vol] 140 mmol/L Normal 133-145 [facility] Comment on above: Order Comment: Comme nts: NPO at [place] prior to lipid panel Performed By: #### L 300.3900, L100.0100, L500.2500, L500.4100 ####[facility] [address] [place], [address] Urea nitrogen [Mass/Vol] 8 mg/dL Normal 4-19 [facility] Comment on above: Order Comment: Comme nts: NPO at [place] prior to lipid panel Performed By: #### L 300.3900, L100.0100, L500.2500, L500.4100 ####[facility] [address] [place], [address] Brain W/WO Contraston 2024 Brain W/WO Contrast Normal [facility] CBC W/Diff, Automatedon - Absolute Lymph 2.58 X10 3/uL Normal 0.83-4.51 [facility] Comment on above: Performed By: #### L 300.3900, L100.0100, L500.2500, L500.4100 ####[facility] [address] [place], [address] Absolute Neut 3.3 X10 3/uL Normal 2.0-7.7 [facility] Comment on above: Performed By: #### L 300.3900, L100.0100, L500.2500, L500.4100 ####[facility] [address] [place], [address] Basophils/100 WBC (Bld) 1.1 % High 0-1 [facility] Comment on above: Performed By: #### L 300.3900, L100.0100, L500.2500, L500.4100 ####[facility] [address] [place], [address] Eosinophils/100 WBC (Bld) 0.6 % Normal 0-5 [facility] Comment on above: Performed By: #### L 300.3900, L100.0100, L500.2500, L500.4100 ####[facility] [address] [place], [address] Erythrocyte distribution width (RBC) [Ratio] 12.8 % Normal 11.6-14.6 [facility] Comment on above: Performed By: #### L 300.3900, L100.0100, L500.2500, L500.4100 ####[facility] [address] [place], [address] Hematocrit (Bld) [Volume fraction] 38.8 % Normal 37-47 [facility] Comment on above: Performed By: #### L 300.3900, L100.0100, L500.2500, L500.4100 ####[facility] [address] [place], [address] Hemoglobin (Bld) [Mass/Vol] 13.4 g/dL Normal 12.0-15.0 [facility] Comment on above: Performed By: #### L 300.3900, L100.0100, L500.2500, L500.4100 ####[facility] [address] [place], [address] IG% 0.300 Normal 0.0-0.9 [facility] Comment on above: Result Comment: IG% - Immature Granulocytes (promyelocytes, myelocytes andmetamyelocytes) > 1% indicates that a LEFT SHIFT is Present. Performed By: #### L 300.3900, L100.0100, L500.2500, L500.4100 ####[facility] [address] [place], [address] Lymphocytes/100 WBC (Bld) 39.7 % Normal 19-41 [facility] Comment on above: Performed By: #### L 300.3900, L100.0100, L500.2500, L500.4100 ####[facility] [id number] [place], [address] MCH (RBC) [Entitic mass] 32.4 pg High 27.0-32.0 [facility] Comment on above: Performed By: #### L 300.3900, L100.0100, L500.2500, L500.4100 ####[facility] [id number] [place], [address] MCHC (RBC) [Mass/Vol] 34.5 g/dL Normal 32-36 [facility] Comment on above: Performed By: #### L 300.3900, L100.0100, L500.2500, L500.4100 ####[facility] [id number] [place], [address] MCV (RBC) [Entitic vol] 93.9 fL Normal 81-99 [facility] Comment on above: Performed By: #### L 300.3900, L100.0100, L500.2500, L500.4100 ####[facility] [id number] [place], [address] Monocytes/100 WBC (Bld) 7.4 % Normal 0-10 [facility] Comment on above: Performed By: #### L 300.3900, L100.0100, L500.2500, L500.4100 ####[facility] [id number] [place], [address] Neutrophils/100 WBC (Bld) 50.9 % Normal 47-70 [facility] Comment on above: Performed By: #### L 300.3900, L100.0100, L500.2500, L500.4100 ####[facility] [id number] [place], [address] Nucleated RBC (Bld) [#/Vol] 0 10*3/uL Normal 0-5 [facility] Comment on above: Performed By: #### L 300.3900, L100.0100, L500.2500, L500.4100 ####[facility] [address] [place], [address] Platelet mean volume (Bld) [Entitic vol] 9.9 fL Normal 6.2-12.0 [facility] Comment on above: Performed By: #### L 300.3900, L100.0100, L500.2500, L500.4100 ####[facility] [address] [place], [address] Platelets (Bld) [#/Vol] 175 10*3/uL Normal 150-450 [facility] Comment on above: Performed By: #### L 300.3900, L100.0100, L500.2500, L500.4100 ####[facility] [address] [place], [address] RBC (Bld) [#/Vol] 4.13 10*6/uL Low 4.2-5.4 [facility] Comment on above: Performed By: #### L 300.3900, L100.0100, L500.2500, L500.4100 ####[facility] [address] [place], [address] RDW SD 44.3 fl High 35.1-43.9 [facility] Comment on above: Performed By: #### L 300.3900, L100.0100, L500.2500, L500.4100 ####[facility] [address] [place], [address] WBC (Bld) [#/Vol] 6.5 10*3/uL Normal 4.4-11.0 [facility] Comment on above: Performed By: #### L 300.3900, L100.0100, L500.2500, L500.4100 ####[facility] [address] [place], [address] Calculated very low density lipoprotein (VLDL) cholesterol measurementOrdered By: Forrest Bonilla on 10-23-2024 Calculated very low density lipoprotein (VLDL) cholesterol measurement 30 mg/dL 5-40 [facility] Echo Completeon 10-23-2024 Echo Complete Normal [facility] Echocardiogram study reportO rdered By: William White on 10-23-2024 Study report [facility] [address] [place] [address] Echo Complete 10/23/24 1033 MR#: [id number] Acct: [id number] Name: MARK MARTIN Rep #:[id number] : 1950 74 From: William White MD Attending Dr: Dr. Rosalva Ortez MD Status: ADM IN Ordering Dr: Forrest Bonilla MD Date: Location: [facility] Sex: F C Admitted: 10/23/24 Reason For Study Reason For Study: TIA/CVA Procedure This was a 2D Doppler, Color Flow transthoracic echocardiogram. Exam performed portable in patient room. Left Ventricle Normal LV size. Severe concentric left ventricular hypertrophy. Left ventricularsystolic function is normal. The left ventricular ejection fraction is 60 %. At least stage 1 diastolic dysfunction. Right Ventricle Normal RV size. Normal systolic function. Atria The left atrium is severely enlarged. The right atrium is mildly enlarged. Mitral Valve Bileaflet diffuse mitral valve thickening. Moderate mitral annular calcification. Mean transmitral valve gradient 5 mmHg. Mild mitral valve stenosis. Mild (1+) mitral valve insufficiency. Tricuspid Valve Normal tricuspid valve. Mild (1+) tricuspid valve insufficiency. Pulmonary artery systolic pressure is 17 mmHg. Aortic Valve Peak aortic valve gradient 25 mmHg. Mean aortic valve gradient 15 mmHg. Stable appearing bioprosthetic aortic valve apparatus. Pulmonic Valve Normal pulmonic valve. Trivial pulmonic valve insufficiency. Great Vessels Mildly dilated aortic root. Pericardium/Pleural No pericardial effusion. MMode/2D Measurements & Calculations LVIDd: 3.6 cm IVSd: 1.9 cm LVOT diam: 1.9 cm LVIDs: 2.3 cm LVPWd: 1.8 cm LVOT area: 2.9 cm2 RVDd: 3.2 cm FS: 37.1 % Ao root diam: 4.2 cm LAV(MOD-bp): 81.3 ml LVAd ap4: 21.5 cm2 LAV(MOD-bp) Indexed: 54.2 ml/m2 LVLd ap4: 7.1 cm LAV(MOD-sp2): 81.3 ml EDV(MOD-sp4): 53.0 ml LAV(MOD-sp4): 82.2 ml EDV(sp4-el): 55.4 ml LVAs ap4: 11.2 cm2 LVLs ap4: 6.6 cm ESV(MOD-sp4): 15.6 ml ESV(sp4-el): 16.2 ml EF(MOD-sp4): 70.6 % EF(sp4-el): 70.8 % SV(MOD-sp4): 37.4 ml SV(sp4-el): 39.2 ml LA A4 area: 26.0 cm2 SI(MOD-sp4): 25.0 ml/m2 LA dimension(2D): 5.1 cm RA A4 area: 15.2 cm2 Doppler Measurements & Calculations MV E max lorena: 160.0 cm/sec MV V2 max: 187.6 cm/sec AoV2 max: 250.7 cm/sec MV max P.1 mmHg Aomax P.2 mmHg MV V2 mean: 97.5 cm/sec AoV2 mean: 182.7 cm/sec MV mean P.7 mmHg Aomean P.9 mmHg MV V2 VTI: 56.6 cm AoV2 VTI: 43.2 cm AV(velocity ratio): 0.50 MVA(VTI): 1.1 cm2 ORESTES(I,D): 1.4 cm2 ORESTES(V,D): 1.3 cm2 LV V1 max: 111.6 cm/sec SV(LVOT): 62.3 ml PAV2 max: 102.1 cm/sec LV V1 max P.0 mmHg PAV2 mean: 68.1 cm/sec LV V1 mean P.4 mmHg LV V1 mean: 70.4 cm/sec LV V1 VTI: 21.6 cm TR max lorena: 186.4 cm/sec TR max P.9 mmHg ECHO/Echo Complete Interpretation Summary The left ventricular ejection fraction is 60 %. Severe concentric left ventricular hypertrophy. The left atrium is severely enlarged. The right atrium is mildly enlarged. Mild mitral valve stenosis. Mild (1+) mitral valve insufficiency. Mild (1+) tricuspid valve insufficiency. Stable appearing bioprosthetic aortic valve apparatus. Mildly dilated aortic root. Ordering Physician: Forrest Bonilla Performed By: Alfredo Guadalupe RCS 10/23/24 1333 Date _ William White MD CC: Dr. Savage Gilliam MD; Dr. Rosalva Ortez MD; Dr. Forrest Bonilla MD ~ Date Dictated: 10/23/24 1033 Date Transcribed: 10/23/24 1333 Security Director: Signed [facility] Work Phone: Electrocardiogram reportOrde red By: Saul Jernigan on 10-23-2024 EKG study [facility] [address] [place] [address] 12 Lead EKG 10/22/244 MR#: [id number] Acct: [id number] Name: MARK MARTIN Rep #:[id number] : 1950 74 From: Saul schaffer MD Attending Dr: Dr. Rosalva Ortez MD Status: ADM IN Ordering Dr: Ron Sesay MD Date: 10/22/24 Location: [facility] Sex: F C Admitted: 10/23/24 Test Reason : DYSRHYTHMIA Blood Pressure : */* mmHG Vent. Rate : 66 BPM Atrial Rate : * BPM P-R Int : * ms QRS Dur : 92 ms QT Int : 416 ms P-R-T Axes : * 8 91 degrees QTcB Int : 436 ms Atrial fibrillation Septal infarct , age undetermined Abnormal ECG Confirmed by Saul Jernigan ([id number]), society editor ROSANNE SAMAYOA ([id number]) on 512:00:25 PM Referred By: Confirmed By: Saul Jernigan 10/23/24 1200 Date _ Saul Jernigan MD CC: Dr. Ron Sesay MD; Dr. Savage Gilliam MD; Dr. Rosalva Ortez MD ~ Signed [facility] Other Phone: Hemoglobin A1con 10-23-2024 HbA1c (Bld) [Mass fraction] 5.7 % Normal <=5.6 [facility] Comment on above: Result Comment: Norm al < 5.7 % Prediabetic 5.7 - 6.4 % Diabetic >or= 6.5 % Please note range changes. Performed By: #### L 501.9520, L500.3400, L501.9985, L505.5000 ####[facility] [address] [place], [address] LDL calc ser/plasOrdered By: Forrest Bonilla on 10-23-2024 Cholesterol in LDL [Mass/Vol] 53 mg/dL [facility] Comment on above: Oxlyfyanhe=633-978 m g/dL & Higher Wzdk=181 mg/dL or greaterFriedwald Equation for LDL-C Lipid Profileon 10-23-2024 CHOL:HDL 2.99 Normal [facility] Comment on above: Order Comment: Comme nts: NPO at [place] prior to lipid panel Performed By: #### L 300.3900, L100.0100, L500.2500, L500.4100 ####[facility] [address] [place], [address] Cholesterol [Mass/Vol] 124 mg/dL Normal <=200 [facility] Comment on above: Order Comment: Comme nts: NPO at [place] prior to lipid panel Result Comment: Chol esterol level, Desirable <200 mg/dLBorderline high cholesterol 200-239 mg/dLHigh cholesterol >=240 mg/dLRecommendations of the NCEP Adult Treatment Panel for thefollowing risk-cutoff thresholds for the [place] Americanpulation. Performed By: #### L 300.3900, L100.0100, L500.2500, L500.4100 ####[facility] [address] [place], [address] Cholesterol in HDL [Mass/Vol] 42 mg/dL Normal [facility] Comment on above: Order Comment: Comme nts: NPO at [place] prior to lipid panel Result Comment: Carina onal Cholesterol Education Program (NCEP) guidelines:<40 mg/dL: Low HDL-cholesterol (major risk factor for CHD)>= 60 mg/dL: High HDL-cholesterol (negative risk factor forCHD)HDL-cholesterol is affected by a number of factors, e.g.smoking, exercise, hormones, sex and age. Performed By: #### L 300.3900, L100.0100, L500.2500, L500.4100 ####[facility] [address] [place], [address] Cholesterol in LDL [Mass/Vol] 53 mg/dL Normal [facility] Comment on above: Order Comment: Comme nts: NPO at [place] prior to lipid panel Result Comment: Bord lvzofc=954-767 mg/dL Higher Iizr=186 mg/dL or greaterFriedwald Equation for LDL-C Performed By: #### L 300.3900, L100.0100, L500.2500, L500.4100 ####[facility] [address] [place], [address] Cholesterol in VLDL [Mass/Vol] 30 mg/dL Normal 5-40 [facility] Comment on above: Order Comment: Comme nts: NPO at [place] prior to lipid panel Performed By: #### L 300.3900, L100.0100, L500.2500, L500.4100 ####[facility] [address] [place], [address] Triglyceride [Mass/Vol] 148 mg/dL Normal [facility] Comment on above: Order Comment: Comme nts: NPO at [place] prior to lipid panel Result Comment: The drugs N-Acetylcysteine and Metamizole may falselydepress this assay.Normal range: <150 mg/dLBorderline High: 150-199 mg/dLHigh: 200-499 mg/dLVery High: >500 mg/dL Performed By: #### L 300.3900, L100.0100, L500.2500, L500.4100 ####[facility] [address] [place], [address] Liver Profileon 10-23-2024 Albumin [Mass/Vol] 4.0 g/dL Normal 3.4-4.8 [facility] Comment on above: Performed By: #### L 501.9520, L500.3400, L501.9985, L505.5000 ####[facility] [address] [place], [address] ALK PHOS 71 U/L Normal 35-104 [facility] Comment on above: Performed By: #### L 501.9520, L500.3400, L501.9985, L505.5000 ####[facility] [address] [place], [address] ALT [Catalytic activity/Vol] 17 U/L Normal <=34 [facility] Comment on above: Performed By: #### L 501.9520, L500.3400, L501.9985, L505.5000 ####[facility] [address] [place], [address] AST [Catalytic activity/Vol] 22 U/L Normal <=31 [facility] Comment on above: Performed By: #### L 501.9520, L500.3400, L501.9985, L505.5000 ####[facility] [address] [place], [address] Bilirubin [Mass/Vol] 0.28 mg/dL Normal 0.00-1.30 [facility] Comment on above: Performed By: #### L 501.9520, L500.3400, L501.9985, L505.5000 ####[facility] [address] [place], [address] Bilirubin.direct [Mass/Vol] 0.13 mg/dL Normal 0.00-0.30 [facility] Comment on above: Performed By: #### L 501.9520, L500.3400, L501.9985, L505.5000 ####[facility] [address] [place], [address] Globulin (S) [Mass/Vol] 2.2 g/dL Normal 2.2-4.2 [facility] Comment on above: Performed By: #### L 501.9520, L500.3400, L501.9985, L505.5000 ####[facility] [address] [place], [address] T PROT 6.2 g/dL Normal 5.9-8.4 [facility] Comment on above: Performed By: #### L 501.9520, L500.3400, L501.9985, L505.5000 ####[facility] [address] [place], [address] MR/CON.PCM.NEon 10-23-2024 MR/CON.PCM.NE Normal [facility] MRA Head ONLY without Contra ston 10-23-2024 MRA Head ONLY without Contrast Normal [facility] MRA Neck WITH and W/O Contra ston 10-23-2024 MRA Neck WITH and W/O Contrast Normal [facility] Magnetic resonance imaging r eportOrdered By: Brian Vu on 10-23-2024 Study report [facility] [address] [place] [address] MRA Head ONLY without Contrast MR#: [id number] Acct: [id number] Name: MARK MARTIN Rep #: [id number] : 1950 F 74 From: Vladimir Vu MD PCP: Dr. Savage Gilliam MD Status: ADM IN Study:MRA Head ONLY without Contrast Date of Exam: 10/23/24 Exam# [id number] Ordering Dr: Forrest Bonilla MD PROCEDURE: MRA HEAD ONLY WITHOUT CONTRAST; BRAIN W/WO CONTRAST; MRA NECK WITH AND W/O CONTRAST 10/23/2024 REASON FOR EXAM: STROKE COMPARISON: CT head 10/22/2024. CTA head/neck 02/11/2023. TECHNIQUE: Procedure Code: MRIMRAH; MRIBRWW; MRIMRANWWOC Modality: MR Procedure: MRA HEAD ONLY WITHOUT CONTRAST; BRAIN W/WO CONTRAST; MRA NECK WITH AND W/O CONTRAST Multiplanar and multisequential MRI of the brain was performed without and with IV gadolinium based contrast. Noncontrast cctp-qt-sqnplx MR angiographic images of the head and neck were obtained. Multiplanar 3D/MIP post processing was performed. 11 mL of Clariscan IV contrast was used. FINDINGS: BRAIN: Chronic infarct with encephalomalacia and gliosis in the anterior right temporallobe, with no regions of abnormal restricted diffusion to indicate a superimposed acute-subacute component. There is a small focus of subtle increased diffusion restriction in the posterior limb of left internal capsule (DWI sequence image 14) which may be a small focus of subacute lacunar infarct. Otherwise no areas of recent infarct are present. Advanced chronic small-vessel ischemic-gliotic changes elsewhere in the supratentorial white matter and with numerous old lacunar infarcts involving the bilateral lundberg radiata, bilateral basal ganglia, and bilateral cerebellar hemispheres. No intracranial hemorrhage or mass-effect. No intracranial mass lesion or pathologic enhancement. Mild-moderate generalized volume loss. Absent bad river band ocular lenses. Well-aerated paranasal sinuses and mastoid air cells. MRA HEAD: Patent major intracranial arterial vasculature. No large vessel occlusion or high-grade flow-limiting stenosis. No saccular aneurysm or vascular malformation identified. Anatomic variant single left NATASHA A1 segment supplies the bilateral anterior cerebral arteries, with absent or hypoplastic right A1 segment. MRA NECK: Bilateral cervical carotid and vertebral arteries are patent, without evidence for high-grade flow-limiting stenosis. Dominant left vertebral artery supplies the basilar, with relatively hypoplastic right vertebral artery which terminates distally at PICA branches. Atherosclerotic plaque at the carotid artery bifurcations with mild less than 50% narrowing on the right, and more moderate roughly 50% stenosis on the left. MRI/MRA Head ONLY without Contrast IMPRESSION: 1. Possible subacute lacunar infarct posterior limb of left internal capsule. Noother areas of recent infarct. Chronic encephalomalacia and gliosis in the anterior right temporal lobe with no superimposed acute component. Right temporal infarct is however new since 01/17/2024. 2. Advanced chronic small-vessel ischemic changes with numerous scattered old lacunar infarcts involving the bilateral lundberg radiata, basal ganglia, and cerebellar hemispheres. 3. No intracranial or cervical large vessel arterial occlusion or flow-limiting stenosis. 4. Mild right and more moderate left narrowing of the proximal cervical ICAs. Reading Location: [facility] CC: Dr. Savage Gilliam MD; Dr. Forrest Bonilla MD ~ Security Director: Signed [facility] Study report [facility] [address] [place] [address] Brain W/WO Contrast MR#: [id number] Acct: [id number] Name: MARK MARTIN Rep #: [id number] : 1950 F 74 From: Vladimir Vu MD PCP: Dr. Savage Gilliam MD Status: ADM IN Study:Brain W/WO Contrast Date of Exam: 10/23/24 Exam# [id number] Ordering Dr: Forrest Bonilla MD PROCEDURE: MRA HEAD ONLY WITHOUT CONTRAST; BRAIN W/WO CONTRAST; MRA NECK WITH AND W/O CONTRAST 10/23/2024 REASON FOR EXAM: STROKE COMPARISON: CT head 10/22/2024. CTA head/neck 02/11/2023. TECHNIQUE: Procedure Code: MRIMRAH; MRIBRWW; MRIMRANWWOC Modality: MR Procedure: MRA HEAD ONLY WITHOUT CONTRAST; BRAIN W/WO CONTRAST; MRA NECK WITH AND W/O CONTRAST Multiplanar and multisequential MRI of the brain was performed without and with IV gadolinium based contrast. Noncontrast yhbh-hr-ssbglz MR angiographic images of the head and neck were obtained. Multiplanar 3D/MIP post processing was performed. 11 mL of Clariscan IV contrast was used. FINDINGS: BRAIN: Chronic infarct with encephalomalacia and gliosis in the anterior right temporallobe, with no regions of abnormal restricted diffusion to indicate a superimposed acute-subacute component. There is a small focus of subtle increased diffusion restriction in the posterior limb of left internal capsule (DWI sequence image 14) which may be a small focus of subacute lacunar infarct. Otherwise no areas of recent infarct are present. Advanced chronic small-vessel ischemic-gliotic changes elsewhere in the supratentorial white matter and with numerous old lacunar infarcts involving the bilateral lundberg radiata, bilateral basal ganglia, and bilateral cerebellar hemispheres. No intracranial hemorrhage or mass-effect. No intracranial mass lesion or pathologic enhancement. Mild-moderate generalized volume loss. Absent bad river band ocular lenses. Well-aerated paranasal sinuses and mastoid air cells. MRA HEAD: Patent major intracranial arterial vasculature. No large vessel occlusion or high-grade flow-limiting stenosis. No saccular aneurysm or vascular malformation identified. Anatomic variant single left NATASHA A1 segment supplies the bilateral anterior cerebral arteries, with absent or hypoplastic right A1 segment. MRA NECK: Bilateral cervical carotid and vertebral arteries are patent, without evidence for high-grade flow-limiting stenosis. Dominant left vertebral artery supplies the basilar, with relatively hypoplastic right vertebral artery which terminates distally at PICA branches. Atherosclerotic plaque at the carotid artery bifurcations with mild less than 50% narrowing on the right, and more moderate roughly 50% stenosis on the left. MRI/Brain W/WO Contrast IMPRESSION: 1. Possible subacute lacunar infarct posterior limb of left internal capsule. Noother areas of recent infarct. Chronic encephalomalacia and gliosis in the anterior right temporal lobe with no superimposed acute component. Right temporal infarct is however new since 01/17/2024. 2. Advanced chronic small-vessel ischemic changes with numerous scattered old lacunar infarcts involving the bilateral lundberg radiata, basal ganglia, and cerebellar hemispheres. 3. No intracranial or cervical large vessel arterial occlusion or flow-limiting stenosis. 4. Mild right and more moderate left narrowing of the proximal cervical ICAs. Reading Location: [facility] CC: Dr. Savage Gilliam MD; Dr. Forrest Bonilla MD ~ Security Director: Signed [facility] Study report [facility] [address] [place], [place] [id number] MRA Neck WITH and W/O Contrast MR#: [id number] Acct: [id number] Name: MARK MARTIN Rep #: [id number] : 1950 F 74 From: Vladimir Vu MD PCP: Dr. Savage Gilliam MD Status: ADM IN Study:MRA Neck WITH and W/O Contrast Date of Exam: 10/23/24 Exam# [id number] Ordering Dr: Forrest Bonilla MD PROCEDURE: MRA HEAD ONLY WITHOUT CONTRAST; BRAIN W/WO CONTRAST; MRA NECK WITH AND W/O CONTRAST 10/23/2024 REASON FOR EXAM: STROKE COMPARISON: CT head 10/22/2024. CTA head/neck 02/11/2023. TECHNIQUE: Procedure Code: MRIMRAH; MRIBRWW; MRIMRANWWOC Modality: MR Procedure: MRA HEAD ONLY WITHOUT CONTRAST; BRAIN W/WO CONTRAST; MRA NECK WITH AND W/O CONTRAST Multiplanar and multisequential MRI of the brain was performed without and with IV gadolinium based contrast. Noncontrast eawl-ca-naycvs MR angiographic images of the head and neck were obtained. Multiplanar 3D/MIP post processing was performed. 11 mL of Clariscan IV contrast was used. FINDINGS: BRAIN: Chronic infarct with encephalomalacia and gliosis in the anterior right temporallobe, with no regions of abnormal restricted diffusion to indicate a superimposed acute-subacute component. There is a small focus of subtle increased diffusion restriction in the posterior limb of left internal capsule (DWI sequence image 14) which may be a small focus of subacute lacunar infarct. Otherwise no areas of recent infarct are present. Advanced chronic small-vessel ischemic-gliotic changes elsewhere in the supratentorial white matter and with numerous old lacunar infarcts involving the bilateral lundberg radiata, bilateral basal ganglia, and bilateral cerebellar hemispheres. No intracranial hemorrhage or mass-effect. No intracranial mass lesion or pathologic enhancement. Mild-moderate generalized volume loss. Absent bad river band ocular lenses. Well-aerated paranasal sinuses and mastoid air cells. MRA HEAD: Patent major intracranial arterial vasculature. No large vessel occlusion or high-grade flow-limiting stenosis. No saccular aneurysm or vascular malformation identified. Anatomic variant single left NATASHA A1 segment supplies the bilateral anterior cerebral arteries, with absent or hypoplastic right A1 segment. MRA NECK: Bilateral cervical carotid and vertebral arteries are patent, without evidence for high-grade flow-limiting stenosis. Dominant left vertebral artery supplies the basilar, with relatively hypoplastic right vertebral artery which terminates distally at PICA branches. Atherosclerotic plaque at the carotid artery bifurcations with mild less than 50% narrowing on the right, and more moderate roughly 50% stenosis on the left. MRI/MRA Neck WITH and W/O Contrast IMPRESSION: 1. Possible subacute lacunar infarct posterior limb of left internal capsule. Noother areas of recent infarct. Chronic encephalomalacia and gliosis in the anterior right temporal lobe with no superimposed acute component. Right temporal infarct is however new since 01/17/2024. 2. Advanced chronic small-vessel ischemic changes with numerous scattered old lacunar infarcts involving the bilateral lundberg radiata, basal ganglia, and cerebellar hemispheres. 3. No intracranial or cervical large vessel arterial occlusion or flow-limiting stenosis. 4. Mild right and more moderate left narrowing of the proximal cervical ICAs. Reading Location: [facility] CC: Dr. Savage Gilliam MD; Dr. Forrest Bonilla MD ~ Security Director: Signed [facility] Prothrombin Time w/INRon INR Coag (PPP) [Relative time] 1.3 {INR} Normal [facility] Comment on above: Performed By: #### L 300.3900, L100.0100, L500.2500, L500.4100 ####[facility] [address] [place], [address] PT Coag (PPP) [Time] 16.7 s High 11.7-14.9 [facility] Comment on above: Performed By: #### L 300.3900, L100.0100, L500.2500, L500.4100 ####[facility] [address] [place], [address] INR Normal [facility] Comment on above: Result Comment: DRAKE HDZ RN Performed By: #### L 300.3900 ####[facility] [address] [place], [address] PROTIME Normal 11.7-14.9 [facility] Comment on above: Result Comment: DRAKE HDZ RN Performed By: #### L 300.3900 ####[facility] [address] [place], [address] Screening total cholesterol/ high density lipoprotein (HDL) cholesterol ratioOrdered By: Forrest Bonilla on 10-23-2024 Cholesterol.total/Puja sterol in HDL [Mass ratio] 2.99 {ratio} [facility] Serum or plasma cholesterol in HDL measurement (mass/volume)Ordered By: Forrest Bonilla on 10-23-2024 Cholesterol in HDL [Mass/Vol] 42 mg/dL >40 [facility] Comment on above: National Cholesterol Education Program (NCEP) guidelines:<40 mg/dL: Low HDL-cholesterol (major risk factor for CHD)>= 60 mg/dL: High HDL-cholesterol (negative risk factor for CHD)HDL-cholesterol is affected by a number of factors, e.g. smoking, exercise, hormones, sex and age. Serum or plasma cholesterol measurement (mass/volume)Ordered By: Forrest Bonilla on 10-23-2024 Cholesterol [Mass/Vol] 124 mg/dL <201 [facility] Comment on above: Cholesterol level, D esirable <200 mg/dLBorderline high cholesterol 200-239 mg/dLHigh cholesterol >=240 mg/dLRecommendations of the NCEP Adult Treatment Panel for the following risk-cutoff thresholds for the [place] population. Thyroid Stim Hormone (TSH)on 10-23-2024 TSH 1.400 uIU/mL Normal 0.300-4.200 [facility] Comment on above: Performed By: #### L 501.9520, L500.3400, L501.9985, L505.5000 ####[facility] [address] [place], [place], [id number] Triglycerides measurementOrd ered By: Forrest Bonilla on 10-23-2024 Triglyceride [Mass/Vol] 148 mg/dL <199 [address] [facility] Comment on above: The drugs N-Acetylcy steine and Metamizole may falsely depress this assay. Normal range: <150 mg/dLBorderline High: 150-199 mg/dLHigh: 200-499 mg/dLVery High: >500 mg/dL Urine Drug Screen (VISTA)on 10-23-2024 AMPHETAMINES Negative Normal <1000 ng/mL [facility] Comment on above: Performed By: #### L 501.9520, L500.3400, L501.9985, L505.5000 ####[facility] [address] [place], [address] BARBITIURATES Negative Normal < 200 ng/mL [facility] Comment on above: Performed By: #### L 501.9520, L500.3400, L501.9985, L505.5000 ####[facility] [address] [facility] [address] BENZODIAZIPINE Negative Normal < 200 ng/mL [facility] Comment on above: Performed By: #### L 501.9520, L500.3400, L501.9985, L505.5000 ####[facility] [address] [place], [address] BUP Ur Drug Scr Negative Normal < 200 ng/mL [facility] Comment on above: Performed By: #### L 501.9520, L500.3400, L501.9985, L505.5000 ####[facility] [address] [place], [place], [phone] COCAINE Negative Normal < 300 ng/mL [facility] Comment on above: Performed By: #### L 501.9520, L500.3400, L501.9985, L505.5000 ####[facility] [address] [place], [place], [phone] Fentanyl Negative Normal <5 ng/mL [facility] Comment on above: Result Comment: CONF IRMATORY TESTING FOR ALL POSITIVE URINE DRUG SCREENRESULTS WILL ONLY BE SENT OUT UPON PHYSICIAN ORDER.Nuha Pro Urine Drug Screen methods provide only preliminaryanalytical test results. A more specific alternate chemicalmethod must be used in order to obtain a confirmedanalytical result. Gas chromatography/mass spectrometery(GC/MS) is the preferred confirmatory method. Clinicalconsideration and professional judgement should be appliedto any drug of abuse test result, particularly whenpreliminary positive results are used.Urine TCA testing must be ordered separately. Use testmnemonic: UTCA Performed By: #### L 501.9520, L500.3400, L501.9985, L505.5000 ####[facility] [address] [place], [address] METHADONE Negative Normal < 300 ng/mL [facility] Comment on above: Performed By: #### L 501.9520, L500.3400, L501.9985, L505.5000 ####[facility] [address] [place], [address] OPIATES Negative Normal < 300 ng/mL [facility] Comment on above: Performed By: #### L 501.9520, L500.3400, L501.9985, L505.5000 ####[facility] [address] [place], [address] OXYCODONE Negative Normal < 100 ng/mL [facility] Comment on above: Performed By: #### L 501.9520, L500.3400, L501.9985, L505.5000 ####[facility] [address] [place], [address] PCP Negative Normal < 25 ng/mL [facility] Comment on above: Performed By: #### L 501.9520, L500.3400, L501.9985, L505.5000 ####[facility] [address] [place], [address] THC Negative Normal < 50 ng/mL [facility] Comment on above: Performed By: #### L 501.9520, L500.3400, L501.9985, L505.5000 ####[facility] [address] [place], [address] 12 Lead EKGon 10-22-2024 12 Lead EKG Normal [facility] Absolute lymphocyte countOrd ered By: Ron Sesay on 10-22-2024 Lymphocytes Auto (Unsp spec) [#/Vol] 1.64 10*3/uL 0.83-4.51 [facility] Absolute neutrophil countOrd ered By: Ron Sesay on 10-22-2024 Neutrophils (Bld) [#/Vol] 3.4 10*3/uL 2.0-7.7 [facility] Amphetamine detection with 1 000 ng/mL as cutoffOrdered By: Forrest Bonilla on 10-22-2024 Amphetamines Screen method >1000 ng/mL Ql (U) Negative < 200 ng/mL [facility] Anion gap in Serum or Plasma Ordered By: Ron Sesay on 10-22-2024 Anion gap [Moles/Vol] 10 mmol/L 06-21 [facility] Automated lymphocyte count a s percentage of total leukocytesOrdered By: Ron Sesay on 10-22-2024 Lymphocytes/100 WBC Auto (Unsp spec) 28.7 % [facility] BUN/creatinine ratioOrdered By: Ron Sesay on 10-22-2024 Urea nitrogen/Creatinine [Mass ratio] 19.4 mg/mg 11-26 [facility] Basic Metabolic Profile (BMP )on 10-22-2024 BUN/CRE 19.4 RATIO Normal 11-26 [facility] Comment on above: Performed By: #### L 100.0100, L500.2500 ####[facility] [address] [place], [address] Calcium [Mass/Vol] 9.1 mg/dL Normal 7.6-11.0 [facility] Comment on above: Performed By: #### L 100.0100, L500.2500 ####[facility] [address] [place], [address] Chloride [Moles/Vol] 104 mmol/L Normal 98-108 [facility] Comment on above: Performed By: #### L 100.0100, L500.2500 ####[facility] [address] [place], [address] CO2 [Moles/Vol] 23.9 mmol/L Normal 21.0-32.0 [facility] Comment on above: Performed By: #### L 100.0100, L500.2500 ####[facility] [address] [place], [address] Creatinine [Mass/Vol] 0.57 mg/dL Low 0.70-1.20 [facility] Comment on above: Performed By: #### L 100.0100, L500.2500 ####[facility] [address] [place], [address] ECRCL 45.85 ml/min Low 50-250 [facility] Comment on above: Performed By: #### L 100.0100, L500.2500 ####[facility] [address] [place], [address] GAP 10 Normal 5-15 [facility] Comment on above: Performed By: #### L 100.0100, L500.2500 ####[facility] [address] [place], [address] GFR/1.73 sq M.predicted among non-blacks MDRD (S/P/Bld) [Vol rate/Area] 95 mL/min/{1.73_m2} Normal >60 [facility] Comment on above: Result Comment: mL/m in/1.73m2 CKD-EPI Creatinine Equation (2020) Performed By: #### L 100.0100, L500.2500 ####[facility] [address] [place], [address] Glucose [Mass/Vol] 131 mg/dL High 70-99 [facility] Comment on above: Performed By: #### L 100.0100, L500.2500 ####[facility] [address] [place], [address] Potassium [Moles/Vol] 4.2 mmol/L Normal 3.3-5.1 [facility] Comment on above: Performed By: #### L 100.0100, L500.2500 ####[facility] [address] [place], [address] Sodium [Moles/Vol] 138 mmol/L Normal 133-145 [facility] Comment on above: Performed By: #### L 100.0100, L500.2500 ####[facility] [address] [place], [address] Urea nitrogen [Mass/Vol] 11 mg/dL Normal 4-19 [facility] Comment on above: Performed By: #### L 100.0100, L500.2500 ####[facility] [address] [place], [address] Basophil percentageOrdered B y: Ron Sesay on 10-22-2024 Basophils/100 WBC (Bld) 1.0 % 0-1 [facility] Bilirubin directOrdered By: Forrest Bonilla on 10-22-2024 Bilirubin.direct [Mass/Vol] 0.13 mg/dL 0.00-0.30 [facility] Bilirubin, totalOrdered By: Forrest Bonilla on 10-22-2024 Bilirubin [Mass/Vol] 0.28 mg/dL 0.00-1.30 [facility] Brain/Head without Contrasto n 10-22-2024 Brain/Head without Contrast Normal [facility] CBC W/Diff, Automatedon 10-08 Absolute Lymph 1.64 X10 3/uL Normal 0.83-4.51 [facility] Comment on above: Performed By: #### L 100.0100, L500.2500 ####[facility] [address] [place], [address] Absolute Neut 3.4 X10 3/uL Normal 2.0-7.7 [facility] Comment on above: Performed By: #### L 100.0100, L500.2500 ####[facility] [address] [place], [address] Basophils/100 WBC (Bld) 1.0 % Normal 0-1 [facility] Comment on above: Performed By: #### L 100.0100, L500.2500 ####[facility] [address] [place], [address] Eosinophils/100 WBC (Bld) 0.3 % Normal 0-5 [facility] Comment on above: Performed By: #### L 100.0100, L500.2500 ####[facility] [address] [place], [address] Erythrocyte distribution width (RBC) [Ratio] 12.7 % Normal 11.6-14.6 [facility] Comment on above: Performed By: #### L 100.0100, L500.2500 ####[facility] [address] [place], [address] Hematocrit (Bld) [Volume fraction] 39.7 % Normal 37-47 [facility] Comment on above: Performed By: #### L 100.0100, L500.2500 ####[facility] [address] [place], [address] Hemoglobin (Bld) [Mass/Vol] 13.5 g/dL Normal 12.0-15.0 [facility] Comment on above: Performed By: #### L 100.0100, L500.2500 ####[facility] [address] [place], [address] IG% 0.500 Normal 0.0-0.9 [facility] Comment on above: Result Comment: IG% - Immature Granulocytes (promyelocytes, myelocytes andmetamyelocytes) > 1% indicates that a LEFT SHIFT is Present. Performed By: #### L 100.0100, L500.2500 ####[facility] [address] [place], [address] Lymphocytes/100 WBC (Bld) 28.7 % Normal 19-41 [facility] Comment on above: Performed By: #### L 100.0100, L500.2500 ####[facility] [address] [place], [address] MCH (RBC) [Entitic mass] 32.1 pg High 27.0-32.0 [facility] Comment on above: Performed By: #### L 100.0100, L500.2500 ####[facility] [address] [place], [address] MCHC (RBC) [Mass/Vol] 34.0 g/dL Normal 32-36 [facility] Comment on above: Performed By: #### L 100.0100, L500.2500 ####[facility] [address] [place], [address] MCV (RBC) [Entitic vol] 94.5 fL Normal 81-99 [facility] Comment on above: Performed By: #### L 100.0100, L500.2500 ####[facility] [address] [place], [address] Monocytes/100 WBC (Bld) 9.3 % Normal 0-10 [facility] Comment on above: Performed By: #### L 100.0100, L500.2500 ####[facility] [address] [place], [address] Neutrophils/100 WBC (Bld) 60.2 % Normal 47-70 [facility] Comment on above: Performed By: #### L 100.0100, L500.2500 ####[facility] [address] [place], [address] Nucleated RBC (Bld) [#/Vol] 0 10*3/uL Normal 0-5 [facility] Comment on above: Performed By: #### L 100.0100, L500.2500 ####[facility] [address] [place], [address] Platelet mean volume (Bld) [Entitic vol] 9.9 fL Normal 6.2-12.0 [facility] Comment on above: Performed By: #### L 100.0100, L500.2500 ####[facility] [address] [place], [address] Platelets (Bld) [#/Vol] 177 10*3/uL Normal 150-450 [facility] Comment on above: Performed By: #### L 100.0100, L500.2500 ####[facility] [address] [place], [address] RBC (Bld) [#/Vol] 4.20 10*6/uL Normal 4.2-5.4 [facility] Comment on above: Performed By: #### L 100.0100, L500.2500 ####[facility] [address] [place], [address] RDW SD 43.9 fl Normal 35.1-43.9 [facility] Comment on above: Performed By: #### L 100.0100, L500.2500 ####[facility] [address] [place], [address] WBC (Bld) [#/Vol] 5.7 10*3/uL Normal 4.4-11.0 [facility] Comment on above: Performed By: #### L 100.0100, L500.2500 ####[facility] [address] [place], [address] Carbon dioxide, total [Moles /volume] in Central venous bloodOrdered By: Ron Sesay on 10-22-2024 CO2 [Moles/Vol] 23.9 mmol/L 21.0-32.0 [facility] Chloride assayOrdered By: Glenn Sesay on 10-22-2024 Chloride [Moles/Vol] 104 mmol/L 98-108 [facility] Emergency Department Summary on 10-22-2024 Emergency Department Summary Normal [facility] Eosinophil percentageOrdered By: Ron Sesay on 10-22-2024 Eosinophils/100 WBC (Bld) 0.3 % 0-5 [facility] Erythrocyte distribution wid th ratioOrdered By: Ron Sesay on 10-22-2024 Erythrocyte distribution width (RBC) [Ratio] 12.7 % 11.6-14.6 [facility] Erythrocyte distribution wid th standard deviationOrdered By: Ron Sesay on 10-22-2024 Erythrocyte distribution width (RBC) [Ratio] 43.9 fl 35.1-43.9 [facility] Glomerular filtration rate ( GFR) estimation/1.73 sq m using serum, plasma, or whole bOrdered By: Ron Sesay on 10-22-2024 GFR/1.73 sq M.predicted among non-blacks MDRD (S/P/Bld) [Vol rate/Area] 95 mL/min/{1.73_m2} >60 [facility] Comment on above: mL/min/1.73m2 CKD-EP I Creatinine Equation (2020) Hematocrit Auto (Bld) [Volum e fraction]Ordered By: Ron Sesay on 10-22-2024 Hematocrit (Bld) [Volume fraction] 39.7 % 37-47 [facility] Hemoglobin A1c percentageOrd ered By: Forrest Bonilla on 10-22-2024 HbA1c (Bld) [Mass fraction] 5.7 % <5.7 [facility] Comment on above: Normal < 5.7 % Predi abetic 5.7 - 6.4 % Diabetic >or= 6.5 % Please note range changes. Hemoglobin measurementOrdere d By: Ron Sesay on 10-22-2024 Hemoglobin (Bld) [Mass/Vol] 13.5 g/dL 12.0-15.0 [facility] Immature granulocytes/100 WB C Auto (Bld)Ordered By: Ron Sesay on 10-22-2024 Immature granulocytes/100 WBC (Bld) 0.500 % 0.0-0.9 [facility] Comment on above: IG% - Immature Granu locytes (promyelocytes, myelocytes and metamyelocytes) > 1% indicates that a LEFT SHIFT is Present. International normalized rat io (INR) calculationOrdered By: Ron Sesay on 10-22-2024 INR Coag (Bld) [Relative time] 1.2 {INR} [facility] Knee 4 or More Viewson 10-22 Knee 4 or More Views Normal [facility] Laboratory - Chemistry and C hemistry - challengeOrdered By: Forrest Bonilla on 10-22-2024 AST [Catalytic activity/Vol] 22 U/L <32 [facility] MCV (mean corpuscular volume ) determinationOrdered By: Ron Sesay on 10-22-2024 MCV (RBC) [Entitic vol] 94.5 fL 81-99 [facility] Mean corpuscular hemoglobin (MCH) determinationOrdered By: Ron Sesay on 10-22-2024 MCH (RBC) [Entitic mass] 32.1 pg High 27.0-32.0 [facility] Mean corpuscular hemoglobin concentration (MCHC) determinationOrdered By: Ron Sesay on 10-22-2024 MCHC (RBC) [Mass/Vol] 34.0 g/dL 32-36 [facility] Mean platelet volume determi nationOrdered By: Ron Sesay on 10-22-2024 Platelet mean volume (Bld) [Entitic vol] 9.9 fL 6.2-12.0 [facility] Monocyte percentageOrdered B y: Ron Sesay on 10-22-2024 Monocytes/100 WBC (Bld) 9.3 % 0-10 [facility] Neutrophil percentageOrdered By: Ron Sesay on 10-22-2024 Neutrophils/100 WBC (Bld) 60.2 % 47-70 [facility] No Panel InformationOrdered By: Forrest Bonilla on 10-22-2024 Urine Buprenorphine Qualitative Negative < 200 ng/mL [facility] Urine Oxycodone Screen Negative < 100 ng/mL [facility] Nucleated red blood cell per centageOrdered By: Ron Sesay on 10-22-2024 Nucleated RBC/100 WBC (Bld) [Ratio] 0 % 0-5 [facility] Platelet countOrdered By: Glenn Sesay on 10-22-2024 Platelets (Bld) [#/Vol] 177 10*3/uL 150-450 [facility] Potassium measurement (mass/ volume)Ordered By: Ron Sesay on 10-22-2024 Potassium (Unsp spec) [Mass/Vol] 4.2 mmol/L 3.3-5.1 [facility] Prothrombin Time w/INRon INR Coag (PPP) [Relative time] 1.2 {INR} Normal [facility] Comment on above: Performed By: #### L 300.3900 ####[facility] [address] [place], [address] PT Coag (PPP) [Time] 15.4 s High 11.7-14.9 [facility] Comment on above: Performed By: #### L 300.3900 ####[facility] [address] [place], [address] Prothrombin timeOrdered By: Ron Sesay on 10-22-2024 PT Coag (PPP) [Time] 15.4 s High 11.7-14.9 [facility] Quantitative urine opiates m easurementOrdered By: Forrest Bonilla on 10-22-2024 Opiates Ql (U) Negative < 300 ng/mL [facility] RBC Auto (Bld) [#/Vol]Ordere d By: Ron Sesay on 10-22-2024 RBC (Bld) [#/Vol] 4.20 10*6/uL 4.2-5.4 [facility] Screening urine fentanyl abigail surementOrdered By: Forrest Bonilla on 10-22-2024 fentaNYL Screen Ql (U) Negative <5 ng/mL [facility] Comment on above: CONFIRMATORY TESTING FOR ALL POSITIVE URINE DRUG SCREENRESULTS WILL ONLY BE SENT OUT UPON PHYSICIAN ORDER. Nuha Pro Urine Drug Screen methods provide only preliminaryanalytical test results. A more specific alternate chemicalmethod must be used in order to obtain a confirmedanalytical result. Gas chromatography/mass spectrometery(GC/MS) is the preferred confirmatory method. Clinicalconsideration and professional judgement should be appliedto any drug of abuse test result, particularly whenpreliminary positive results are used. Urine TCA testing must be ordered separately. Use test mnemonic: UTCA Serum creatinine measurement (mass/volume)Ordered By: Ron Sesay on 10-22-2024 Creatinine [Mass/Vol] 0.57 mg/dL Low 0.70-1.20 [facility] Serum globulin measurementOr dered By: Forrest Bonilla on 10-22-2024 Globulin (S) [Mass/Vol] 2.2 g/dL 2.2-4.2 [facility] Serum glucose measurement (m ass/volume)Ordered By: Ron Sesay on 10-22-2024 Glucose [Mass/Vol] 131 mg/dL High 70-99 [facility] Serum or plasma alanine huang otransferase (ALT) measurementOrdered By: Forrest Bonilla on 10-22-2024 ALT [Catalytic activity/Vol] 17 U/L <35 [facility] Serum or plasma albumin tres urement (mass/volume)Ordered By: Forrest Bonilla on 10-22-2024 Albumin [Mass/Vol] 4.0 g/dL 3.4-4.8 [facility] Serum or plasma alkaline marilynn sphatase measurementOrdered By: Forrest Bonilla on 10-22-2024 ALP [Catalytic activity/Vol] 71 U/L 35-104 [facility] Serum or plasma calcium tres urement (mass/volume)Ordered By: Ron Sesay on 10-22-2024 Calcium [Mass/Vol] 9.1 mg/dL 7.6-11.0 [facility] Serum or plasma urea nitroge n measurement (mass/volume)Ordered By: Ron Sesay on 10-22-2024 Urea nitrogen [Mass/Vol] 11 mg/dL 4-19 [facility] Sodium levelOrdered By: Duran Sesay on 10-22-2024 Sodium [Moles/Vol] 138 mmol/L 133-145 [facility] TSH DL <= 0.005 mIU/L QnOrde red By: Forrest Bonilla on 10-22-2024 TSH Qn 1.400 uIU/mL 0.300-4.200 [facility] Total proteinOrdered By: Kristy Bonilla on 10-22-2024 Protein [Mass/Vol] 6.2 g/dL 5.9-8.4 [facility] Urine benzodiazepine levelOr dered By: Forrest Bonilla on 10-22-2024 Benzodiazepines Ql (U) Negative < 200 ng/mL [facility] Urine cocaine levelOrdered B y: Forrest Bonilla on 10-22-2024 Cocaine Ql (U) Negative < 300 ng/mL [facility] Urine upbtp-7-rpmtgeianqsufe abinol (THC) measurementOrdered By: Forrest Bonilla on 10-22-2024 Cannabinoids Screen Ql (U) Negative < 50 ng/mL [facility] Urine phencyclidine (PCP) de tectionOrdered By: Forrest Bonilla on 10-22-2024 Phencyclidine Ql (U) Negative < 25 ng/mL [facility] White blood cell (WBC) count Ordered By: Ron Sesay on 10-22-2024 WBC (Bld) [#/Vol] 5.7 10*3/uL 4.4-11.0 [facility] Anion gap in Serum or Plasma Ordered By: Savage Gilliam on 10-18-2024 Anion gap [Moles/Vol] 11 mmol/L 06-21 [facility] BUN/creatinine ratioOrdered By: Savage Gilliam on 10-18-2024 Urea nitrogen/Creatinine [Mass ratio] 16.1 mg/mg 11-26 [facility] Basic Metabolic Profile (BMP )on 10-18-2024 BUN/CRE 16.1 RATIO Normal 11-26 [facility] Comment on above: Order Comment: Order Date: 08/27/24Order Info: 0667-1 - BMP Performed By: #### L 500.2500 ####[facility] [address] [place], [address] Calcium [Mass/Vol] 8.9 mg/dL Normal 7.6-11.0 [facility] Comment on above: Order Comment: Order Date: 08/27/24Order Info: 0667-1 - BMP Performed By: #### L 500.2500 ####[facility] [address] [place], [address] Chloride [Moles/Vol] 100 mmol/L Normal 98-108 [facility] Comment on above: Order Comment: Order Date: 08/27/24Order Info: 0667-1 - BMP Performed By: #### L 500.2500 ####[facility] [address] [place], [address] CO2 [Moles/Vol] 26.2 mmol/L Normal 21.0-32.0 [facility] Comment on above: Order Comment: Order Date: 08/27/24Order Info: 666-02 - BMP Performed By: #### L 500.2500 ####[facility] [address] [place], [address] Creatinine [Mass/Vol] 0.56 mg/dL Low 0.70-1.20 [facility] Comment on above: Order Comment: Order Date: 08/27/24Order Info: 666-02 - BMP Performed By: #### L 500.2500 ####[facility] [address] [place], [address] GAP 11 Normal 5-15 [facility] Comment on above: Order Comment: Order Date: 08/27/24Order Info: 666-02 - BMP Performed By: #### L 500.2500 ####[facility] [address] [place], [address] GFR/1.73 sq M.predicted among non-blacks MDRD (S/P/Bld) [Vol rate/Area] 95 mL/min/{1.73_m2} Normal >60 [facility] Comment on above: Order Comment: Order Date: 08/27/24Order Info: 666-02 - BMP Result Comment: mL/m in/1.73m2 CKD-EPI Creatinine Equation (2020) Performed By: #### L 500.2500 ####[facility] [address] [place], [address] Glucose [Mass/Vol] 126 mg/dL High 70-99 [facility] Comment on above: Order Comment: Order Date: 08/27/24Order Info: 666-02 - BMP Performed By: #### L 500.2500 ####[facility] [address] [place], [address] Potassium [Moles/Vol] 4.0 mmol/L Normal 3.3-5.1 [facility] Comment on above: Order Comment: Order Date: 08/27/24Order Info: 666- - BMP Performed By: #### L 500.2500 ####[facility] [address] [place], [address] Sodium [Moles/Vol] 137 mmol/L Normal 133-145 [facility] Comment on above: Order Comment: Order Date: 08/27/24Order Info: 0667-1 - BMP Performed By: #### L 500.2500 ####[facility] [address] [place], [address] Urea nitrogen [Mass/Vol] 9 mg/dL Normal 4-19 [facility] Comment on above: Order Comment: Order Date: 08/27/24Order Info: 0667- - BMP Performed By: #### L 500.2500 ####[facility] [address] [place], [address] Carbon dioxide, total [Moles /volume] in Central venous bloodOrdered By: Savage Gilliam on 10-18-2024 CO2 [Moles/Vol] 26.2 mmol/L 21.0-32.0 [facility] Chloride assayOrdered By: Rosales Gilliam on 10-18-2024 Chloride [Moles/Vol] 100 mmol/L 98-108 [facility] Glomerular filtration rate ( GFR) estimation/1.73 sq m using serum, plasma, or whole bOrdered By: Savage Gilliam on 10-18-2024 GFR/1.73 sq M.predicted among non-blacks MDRD (S/P/Bld) [Vol rate/Area] 95 mL/min/{1.73_m2} >60 [facility] Comment on above: mL/min/1.73m2 CKD-EP I Creatinine Equation (2020) Microalb:Creat Ratio,Random URon 10-18-2024 Creatinine [Mass/Vol] 71.60 mg/dL Normal 28.00- 217.0 0 [facility] Comment on above: Order Comment: Order Date: 10/18/24Order Info: [id number] - MIALB Performed By: #### L 502.0250 ####[facility] [address] [place], [address] MALB:CREAT 67.5 mg/g CRE High <30 mg/g CRE [facility] Comment on above: Order Comment: Order Date: 10/18/24Order Info: [id number] - MIALB Performed By: #### L 502.0250 ####[facility] [address] [place], [address] MICROALBUMIN,UR 48.3 mg/L Normal <20 mg/L [facility] Comment on above: Order Comment: Order Date: 10/18/24Order Info: [id number] - MIALB Performed By: #### L 502.0250 ####[facility] [address] [place], [address] Potassium measurement (mass/ volume)Ordered By: Savage Gilliam on 10-18-2024 Potassium (Unsp spec) [Mass/Vol] 4.0 mmol/L 3.3-5.1 [facility] Random urine creatinine tres urement (mass/volume)Ordered By: Savage Gilliam on 10-18-2024 Creatinine Unsp time (U) [Mass/Vol] 71.60 mg/dL 28.00-217.0 0 [facility] Serum creatinine measurement (mass/volume)Ordered By: Savage Gilliam on 10-18-2024 Creatinine [Mass/Vol] 0.56 mg/dL Low 0.70-1.20 [facility] Serum glucose measurement (m ass/volume)Ordered By: Savage Gilliam on 10-18-2024 Glucose [Mass/Vol] 126 mg/dL High 70-99 [facility] Serum or plasma calcium tres urement (mass/volume)Ordered By: Savage Gilliam on 10-18-2024 Calcium [Mass/Vol] 8.9 mg/dL 7.6-11.0 [facility] Serum or plasma urea nitroge n measurement (mass/volume)Ordered By: Savage Gillaim on 10-18-2024 Urea nitrogen [Mass/Vol] 9 mg/dL 4-19 [facility] Sodium levelOrdered By: Chantell Gilliam on 10-18-2024 Sodium [Moles/Vol] 137 mmol/L 133-145 [facility] Urine albumin measurement [facility] detection limit of 20 mg/L or less (mass/volume)Ordered By: Savage Gilliam on 10-18-2024 Albumin DL <= 20 mg/L (U) [Mass/Vol] 48.3 mg/L <20 mg/L [facility] Low Dose CT Lung Screeningon 04-05-[address] Lung Screening Normal [facility] 12 Lead EKG performed by BMS on 02-15-2024 12 Lead EKG performed by BMS Normal [facility] Cardiology Visit Reporton Cardiology Visit Report Normal [facility] 12 Lead EKGon 02-07-2024 12 Lead EKG Normal [facility] 12 Lead EKG Normal [facility] Absolute neutrophil countOrd ered By: Jacob Morgan on 02-07-2024 Neutrophils (Bld) [#/Vol] 5.5 10*3/uL 2.0-7.7 [facility] Basic Metabolic Profile (BMP )on 02-07-2024 BUN/CRE 11.8 RATIO Normal 10-20 [facility] Comment on above: Order Comment: 1Y Performed By: #### L 300.3900, L501.5425, L100.0100, L500.2500 ####[facility] [address] [place], [address] CA,Total 8.2 mg/dL Low 8.5-10.1 [facility] Comment on above: Order Comment: 1Y Performed By: #### L 300.3900, L501.5425, L100.0100, L500.2500 ####[facility] [address] [place], [address] Chloride [Moles/Vol] 104 mmol/L Normal 98-107 [facility] Comment on above: Order Comment: 1Y Performed By: #### L 300.3900, L501.5425, L100.0100, L500.2500 ####[facility] [address] [place], [address] CO2 [Moles/Vol] 30.0 mmol/L Normal 21.0-32.0 [facility] Comment on above: Order Comment: 1Y Performed By: #### L 300.3900, L501.5425, L100.0100, L500.2500 ####[facility] [address] [place], [address] Creatinine [Mass/Vol] 0.68 mg/dL Normal 0.55-1.02 [facility] Comment on above: Order Comment: 1Y Result Comment: The validity of the calculated GFR GFRAA in patients over70 years has not been determined. Clinical correlation isessential. Performed By: #### L 300.3900, L501.5425, L100.0100, L500.2500 ####[facility] [address] [place], [address] ECRCL 48.06 ml/min Normal [facility] Comment on above: Order Comment: 1Y Performed By: #### L 300.3900, L501.5425, L100.0100, L500.2500 ####[facility] [address] [place], [address] EST GFR - AA 109 mL/min Normal >60 [facility] Comment on above: Order Comment: 1Y Result Comment: Afri can Anguillan GFR Calc Performed By: #### L 300.3900, L501.5425, L100.0100, L500.2500 ####[facility] [address] [place], [address] GAP 5 Normal 5-15 [facility] Comment on above: Order Comment: 1Y Performed By: #### L 300.3900, L501.5425, L100.0100, L500.2500 ####[facility] [address] [place], [address] GFR/1.73 sq M.predicted among non-blacks MDRD (S/P/Bld) [Vol rate/Area] 90 mL/min/{1.73_m2} Normal >60 [facility] Comment on above: Order Comment: 1Y Result Comment: Non- GFR Calc Performed By: #### L 300.3900, L501.5425, L100.0100, L500.2500 ####[facility] [address] [place], [address] Glucose [Mass/Vol] 164 mg/dL High 74-106 [facility] Comment on above: Order Comment: 1Y Result Comment: Fast ing Glucose result greater than or equal to 126 mg/dLsuggests DIABETES MELLITUS per A.D.A. criteria. Performed By: #### L 300.3900, L501.5425, L100.0100, L500.2500 ####[facility] [address] [place], [address] Potassium [Moles/Vol] 3.5 mmol/L Normal 3.5-5.1 [facility] Comment on above: Order Comment: 1Y Performed By: #### L 300.3900, L501.5425, L100.0100, L500.2500 ####[facility] [address] [place], [address] Sodium [Moles/Vol] 138 mmol/L Normal 136-145 [facility] Comment on above: Order Comment: 1Y Performed By: #### L 300.3900, L501.5425, L100.0100, L500.2500 ####[facility] [address] [place], [address] Urea nitrogen [Mass/Vol] 8 mg/dL Normal 7-18 [facility] Comment on above: Order Comment: 1Y Performed By: #### L 300.3900, L501.5425, L100.0100, L500.2500 ####[facility] [address] [place], [address] Basophil percentageOrdered B y: Jacob Morgan on 02-07-2024 Basophils/100 WBC (Bld) 1.0 % 0-1 [facility] Blood urea nitrogen (BUN)/cr eatinine ratioOrdered By: Jacob Eddie on 02-07-2024 Urea nitrogen/Creatinine [Mass ratio] 11.8 mg/mg 10-20 [facility] CBC W/Diff, Automatedon 12-3 -2023 Absolute Lymph 1.61 X10 3/uL Normal 0.83-4.51 [facility] Comment on above: Performed By: #### L 300.3900, L501.5425, L100.0100, L500.2500 ####[facility] [address] [place], [address] Absolute Neut 5.5 X10 3/uL Normal 2.0-7.7 [facility] Comment on above: Performed By: #### L 300.3900, L501.5425, L100.0100, L500.2500 ####[facility] [address] [place], [address] Basophils/100 WBC (Bld) 1.0 % Normal 0-1 [facility] Comment on above: Performed By: #### L 300.3900, L501.5425, L100.0100, L500.2500 ####[facility] [address] [place], [address] Eosinophils/100 WBC (Bld) 0.0 % Normal 0-5 [facility] Comment on above: Performed By: #### L 300.3900, L501.5425, L100.0100, L500.2500 ####[facility] [address] [place], [address] Erythrocyte distribution width (RBC) [Ratio] 12.8 % Normal 11.6-14.6 [facility] Comment on above: Performed By: #### L 300.3900, L501.5425, L100.0100, L500.2500 ####[facility] [address] [place], [address] Hematocrit (Bld) [Volume fraction] 37.4 % Normal 37-47 [facility] Comment on above: Performed By: #### L 300.3900, L501.5425, L100.0100, L500.2500 ####[facility] [address] [place], [address] Hemoglobin (Bld) [Mass/Vol] 12.6 g/dL Normal 12.0-15.0 [facility] Comment on above: Performed By: #### L 300.3900, L501.5425, L100.0100, L500.2500 ####[facility] [address] [place], [address] IG% 0.800 Normal 0.0-0.9 [facility] Comment on above: Result Comment: IG% - Immature Granulocytes (promyelocytes, myelocytes andmetamyelocytes) > 1% indicates that a LEFT SHIFT is Present. Performed By: #### L 300.3900, L501.5425, L100.0100, L500.2500 ####[facility] [address] [place], [address] Lymphocytes/100 WBC (Bld) 20.4 % Normal 19-41 [facility] Comment on above: Performed By: #### L 300.3900, L501.5425, L100.0100, L500.2500 ####[facility] [address] [place], [address] MCH (RBC) [Entitic mass] 31.8 pg Normal 27.0-32.0 [facility] Comment on above: Performed By: #### L 300.3900, L501.5425, L100.0100, L500.2500 ####[facility] [address] [place], [address] MCHC (RBC) [Mass/Vol] 33.7 g/dL Normal 32-36 [facility] Comment on above: Performed By: #### L 300.3900, L501.5425, L100.0100, L500.2500 ####[facility] [address] [place], [address] MCV (RBC) [Entitic vol] 94.4 fL Normal 81-99 [facility] Comment on above: Performed By: #### L 300.3900, L501.5425, L100.0100, L500.2500 ####[facility] [address] [place], [address] Monocytes/100 WBC (Bld) 8.0 % Normal 0-10 [facility] Comment on above: Performed By: #### L 300.3900, L501.5425, L100.0100, L500.2500 ####[facility] [address] [place], [address] Neutrophils/100 WBC (Bld) 69.8 % Normal 47-70 [facility] Comment on above: Performed By: #### L 300.3900, L501.5425, L100.0100, L500.2500 ####[facility] [address] [place], [address] Nucleated RBC (Bld) [#/Vol] 0 10*3/uL Normal 0-5 [facility] Comment on above: Performed By: #### L 300.3900, L501.5425, L100.0100, L500.2500 ####[facility] [address] [place], [address] Platelet mean volume (Bld) [Entitic vol] 10.2 fL Normal 6.2-12.0 [facility] Comment on above: Performed By: #### L 300.3900, L501.5425, L100.0100, L500.2500 ####[facility] [address] [place], [address] Platelets (Bld) [#/Vol] 200 10*3/uL Normal 150-450 [facility] Comment on above: Performed By: #### L 300.3900, L501.5425, L100.0100, L500.2500 ####[facility] [address] [place], [address] RBC (Bld) [#/Vol] 3.96 10*6/uL Low 4.2-5.4 [facility] Comment on above: Performed By: #### L 300.3900, L501.5425, L100.0100, L500.2500 ####[facility] [address] [place], [address] RDW SD 44.1 fl High 35.1-43.9 [facility] Comment on above: Performed By: #### L 300.3900, L501.5425, L100.0100, L500.2500 ####[facility] [address] [place], [address] WBC (Bld) [#/Vol] 7.9 10*3/uL Normal 4.4-11.0 [facility] Comment on above: Performed By: #### L 300.3900, L501.5425, L100.0100, L500.2500 ####[facility] [address] [place], [address] Carbon dioxide measurementOr dered By: Jacob Morgan on 02-07-2024 CO2 [Moles/Vol] 30.0 mmol/L 21.0-32.0 [facility] Chest 1 View (Portable)on Chest 1 View (Portable) Normal [facility] Chloride measurementOrdered By: Jacob Morgan on 02-07-2024 Chloride [Moles/Vol] 104 mmol/L 98-107 [facility] Emergency Department Summary on 02-07-2024 Emergency Department Summary Normal [facility] Eosinophil percentageOrdered By: Jacob Morgan on 02-07-2024 Eosinophils/100 WBC (Bld) 0.0 % 0-5 [facility] Erythrocyte distribution wid th ratioOrdered By: Jacob Morgan on 02-07-2024 Erythrocyte distribution width (RBC) [Ratio] 12.8 % 11.6-14.6 [facility] Erythrocyte distribution wid th standard deviationOrdered By: Jacob Morgan on 02-07-2024 Erythrocyte distribution width (RBC) [Entitic vol] 44.1 fL High 35.1-43.9 [facility] Estimated glomerular filtrat ion rate (GFR) AmericanOrdered By: Jacob Morgan on 02-07-2024 Estimated GFR (MDRD) Amer 109 mL/min >60 [facility] Comment on above: GFR Calc Estimation of creatinine sharon aranceOrdered By: Jacob Morgan on 02-07-2024 Estimated Creatinine Clearance Calc 48.06 ml/min [facility] Glomerular filtration rate ( GFR) estimationOrdered By: Jacob Morgan on 02-07-2024 Estimated GFR (MDRD) Non-Af Amer 90 mL/min >60 [facility] Comment on above: Non- GFR Calc Glucose measurementOrdered B y: Jacob Morgan on 02-07-2024 Glucose [Mass/Vol] 164 mg/dL High 74-106 [facility] Comment on above: Fasting Glucose resu lt greater than or equal to 126 mg/dL suggests DIABETES MELLITUS per A.D.A. criteria. Hematocrit Auto (Bld) [Volum e fraction]Ordered By: Jacob Morgan on 02-07-2024 Hematocrit (Bld) [Volume fraction] 37.4 % 37-47 [facility] Hemoglobin measurementOrdere d By: Jacob Morgan on 02-07-2024 Hemoglobin (Bld) [Mass/Vol] 12.6 g/dL 12.0-15.0 [facility] Immature granulocytes/100 WB C Auto (Bld)Ordered By: Jacob Morgan on 02-07-2024 Immature granulocytes/100 WBC (Bld) 0.800 % 0.0-0.9 [facility] Comment on above: IG% - Immature Granu locytes (promyelocytes, myelocytes and metamyelocytes) > 1% indicates that a LEFT SHIFT is Present. International normalized rat io (INR) calculationOrdered By: Jacob Morgan on 02-07-2024 INR Coag (Bld) [Relative time] 1.4 {INR} [facility] L501.4020on 02-07-2024 TROPONIN-I HS 94 pg/mL High 3.0-54.0 [facility] Comment on above: Result Comment: Plea se Note: New Test Units and Gender Specific Reference Ranges. For more information see Policy Stat Procedure [place] High Sensitivity Troponin (TNIH) and attachments. Performed By: #### L 501.4020 ####[facility] [address] [place], [address] L501.5425on 02-07-2024 TROPONIN-I HS 110 pg/mL High 3.0-54.0 [facility] Comment on above: Order Comment: 1Y Result Comment: Plea se Note: New Test Units and Gender Specific Reference Ranges. For more information see Policy Stat Procedure [place] High Sensitivity Troponin (TNIH) and attachments. Performed By: #### L 300.3900, L501.5425, L100.0100, L500.2500 ####[facility] [address] [place], [address] Lymphocytes Auto (Unsp spec) [#/Vol]Ordered By: Jacob Morgan on 02-07-2024 Lymphocytes (Bld) [#/Vol] 1.61 10*3/uL 0.83-4.51 [facility] Lymphocytes/100 WBC Auto (Un sp spec)Ordered By: Jacob Morgan on 02-07-2024 Lymphocytes/100 WBC (Bld) 20.4 % 19-41 [facility] MCV (mean corpuscular volume ) determinationOrdered By: Jacob Morgan on 02-07-2024 MCV (RBC) [Entitic vol] 94.4 fL 81-99 [facility] Mean corpuscular hemoglobin (MCH) determinationOrdered By: Jacob Morgan on 02-07-2024 MCH (RBC) [Entitic mass] 31.8 pg 27.0-32.0 [facility] Mean corpuscular hemoglobin concentration (MCHC) determinationOrdered By: Jacob Morgan on 02-07-2024 MCHC (RBC) [Mass/Vol] 33.7 g/dL 32-36 [facility] Mean platelet volume determi nationOrdered By: Jacob Morgan on 02-07-2024 Platelet mean volume (Bld) [Entitic vol] 10.2 fL 6.2-12.0 [facility] Monocyte percentageOrdered B y: Jacob Morgan on 02-07-2024 Monocytes/100 WBC (Bld) 8.0 % 0-10 [facility] Neutrophil percentageOrdered By: Jacob Morgan on 02-07-2024 Neutrophils/100 WBC (Bld) 69.8 % 47-70 [facility] Nucleated red blood cell per centageOrdered By: Jacob Morgan on 02-07-2024 Nucleated RBC/100 WBC (Bld) [Ratio] 0 % 0-5 [facility] Platelet countOrdered By: bladimir Morgan on 02-07-2024 Platelets (Bld) [#/Vol] 200 10*3/uL 150-450 [facility] Potassium measurementOrdered By: Jacob Morgan on 02-07-2024 Potassium [Moles/Vol] 3.5 mmol/L 3.5-5.1 [facility] Prothrombin Time w/INRon INR Coag (PPP) [Relative time] 1.4 {INR} Normal [facility] Comment on above: Performed By: #### L 300.3900, L501.5425, L100.0100, L500.2500 ####[facility] [address] [place], [address] PT Coag (PPP) [Time] 17.2 s High 11.7-14.9 [facility] Comment on above: Performed By: #### L 300.3900, L501.5425, L100.0100, L500.2500 ####[facility] [address] [place], [address] Prothrombin timeOrdered By: Jacob Morgan on 02-07-2024 PT Coag (PPP) [Time] 17.2 s High 11.7-14.9 [facility] RBC Auto (Bld) [#/Vol]Ordere d By: Jacob Morgan on 02-07-2024 RBC (Bld) [#/Vol] 3.96 10*6/uL Low 4.2-5.4 [facility] Serum anion gap measurementO rdered By: Jacob Morgan on 02-07-2024 Anion gap [Moles/Vol] 5 mmol/L 5-15 [facility] Serum or plasma calcium tres urement (mass/volume)Ordered By: Jacob Morgan on 02-07-2024 Calcium [Mass/Vol] 8.2 mg/dL Low 8.5-10.1 [facility] Serum or plasma creatinine m easurement (mass/volume)Ordered By: Jacob Morgan on 02-07-2024 Creatinine [Mass/Vol] 0.68 mg/dL 0.55-1.02 [facility] Comment on above: The validity of the calculated GFR & GFRAA in patients over 70 years has not been determined. Clinical correlation is essential. Serum or plasma urea nitroge n measurement (mass/volume)Ordered By: Jacob Morgan on 02-07-2024 Urea nitrogen [Mass/Vol] 8 mg/dL 7-18 [facility] Sodium levelOrdered By: Marysol Morgan on 02-07-2024 Sodium [Moles/Vol] 138 mmol/L 136-145 [facility] Troponin IOrdered By: Jacob Morgan on 02-07-2024 Troponin I High Sensitivity 94 pg/mL High 3.0-54.0 [facility] Comment on above: Please Note: New Marnie t Units and Gender Specific Reference Ranges. For more information see Policy Stat Procedure [place] High Sensitivity Troponin (TNIH) and attachments. White blood cell (WBC) count Ordered By: Jacob Morgan on 02-07-2024 WBC (Bld) [#/Vol] 7.9 10*3/uL 4.4-11.0 [facility] Absolute neutrophil countOrd ered By: Sukumar Eddy on 01-18-2024 Neutrophils (Bld) [#/Vol] 4.3 10*3/uL 2.0-7.7 [facility] Basic Metabolic Profile (BMP )on 01-18-2024 BUN/CRE 22.1 RATIO High 10-20 [facility] Comment on above: Performed By: #### L 100.0100, L500.2500 ####[facility] [address] [place], [address] CA,Total 8.9 mg/dL Normal 8.5-10.1 [facility] Comment on above: Performed By: #### L 100.0100, L500.2500 ####[facility] [address] [place], [address] Chloride [Moles/Vol] 105 mmol/L Normal 98-107 [facility] Comment on above: Performed By: #### L 100.0100, L500.2500 ####[facility] [address] [place], [address] CO2 [Moles/Vol] 30.0 mmol/L Normal 21.0-32.0 [facility] Comment on above: Performed By: #### L 100.0100, L500.2500 ####[facility] [address] [place], [address] Creatinine [Mass/Vol] 0.63 mg/dL Normal 0.55-1.02 [facility] Comment on above: Result Comment: The validity of the calculated GFR GFRAA in patients over70 years has not been determined. Clinical correlation isessential. Performed By: #### L 100.0100, L500.2500 ####[facility] [address] [place], [address] ECRCL 48.80 ml/min Normal [facility] Comment on above: Performed By: #### L 100.0100, L500.2500 ####[facility] [address] [place], [address] EST GFR - AA 118 mL/min Normal >60 [facility] Comment on above: Result Comment: Afri can Anguillan GFR Calc Performed By: #### L 100.0100, L500.2500 ####[facility] [address] [place], [address] GAP 5 Normal 5-15 [facility] Comment on above: Performed By: #### L 100.0100, L500.2500 ####[facility] [address] [place], [address] GFR/1.73 sq M.predicted among non-blacks MDRD (S/P/Bld) [Vol rate/Area] 97 mL/min/{1.73_m2} Normal >60 [facility] Comment on above: Result Comment: Non- GFR Calc Performed By: #### L 100.0100, L500.2500 ####[facility] [address] [place], [address] Glucose [Mass/Vol] 124 mg/dL High 74-106 [facility] Comment on above: Result Comment: Fast ing Glucose result from 100 to 125 mg/dLsuggests IMPAIRED HOMEOSTASIS per A.D.A. criteria. Performed By: #### L 100.0100, L500.2500 ####[facility] [address] [place], [address] Potassium [Moles/Vol] 3.3 mmol/L Low 3.5-5.1 [facility] Comment on above: Performed By: #### L 100.0100, L500.2500 ####[facility] [address] [place], [address] Sodium [Moles/Vol] 140 mmol/L Normal 136-145 [facility] Comment on above: Performed By: #### L 100.0100, L500.2500 ####[facility] [address] [place], [address] Urea nitrogen [Mass/Vol] 14 mg/dL Normal 7-18 [facility] Comment on above: Performed By: #### L 100.0100, L500.2500 ####[facility] [address] [place], [address] Basophil percentageOrdered B y: Sukumar Nunu on 01-18-2024 Basophils/100 WBC (Bld) 0.8 % 0-1 [facility] Blood urea nitrogen (BUN)/cr eatinine ratioOrdered By: Sukumar Chappellaurora on 01-18-2024 Urea nitrogen/Creatinine [Mass ratio] 22.1 mg/mg High 10-20 [facility] CBC W/Diff, Automatedon 01-07 Absolute Lymph 2.17 X10 3/uL Normal 0.83-4.51 [facility] Comment on above: Performed By: #### L 100.0100, L500.2500 ####[facility] [address] [place], [address] Absolute Neut 4.3 X10 3/uL Normal 2.0-7.7 [facility] Comment on above: Performed By: #### L 100.0100, L500.2500 ####[facility] [address] [place], [address] Basophils/100 WBC (Bld) 0.8 % Normal 0-1 [facility] Comment on above: Performed By: #### L 100.0100, L500.2500 ####[facility] [address] [place], [address] Eosinophils/100 WBC (Bld) 0.0 % Normal 0-5 [facility] Comment on above: Performed By: #### L 100.0100, L500.2500 ####[facility] [address] [place], [address] Erythrocyte distribution width (RBC) [Ratio] 12.9 % Normal 11.6-14.6 [facility] Comment on above: Performed By: #### L 100.0100, L500.2500 ####[facility] [address] [place], [address] Hematocrit (Bld) [Volume fraction] 38.3 % Normal 37-47 [facility] Comment on above: Performed By: #### L 100.0100, L500.2500 ####[facility] [address] [place], [address] Hemoglobin (Bld) [Mass/Vol] 13.1 g/dL Normal 12.0-15.0 [facility] Comment on above: Performed By: #### L 100.0100, L500.2500 ####[facility] [address] [place], [address] IG% 0.600 Normal 0.0-0.9 [facility] Comment on above: Result Comment: IG% - Immature Granulocytes (promyelocytes, myelocytes andmetamyelocytes) > 1% indicates that a LEFT SHIFT is Present. Performed By: #### L 100.0100, L500.2500 ####[facility] [address] [place], [address] Lymphocytes/100 WBC (Bld) 30.1 % Normal 19-41 [facility] Comment on above: Performed By: #### L 100.0100, L500.2500 ####[facility] [address] [place], [address] MCH (RBC) [Entitic mass] 31.7 pg Normal 27.0-32.0 [facility] Comment on above: Performed By: #### L 100.0100, L500.2500 ####[facility] [address] [place], [address] MCHC (RBC) [Mass/Vol] 34.2 g/dL Normal 32-36 [facility] Comment on above: Performed By: #### L 100.0100, L500.2500 ####[facility] [address] [place], [address] MCV (RBC) [Entitic vol] 92.7 fL Normal 81-99 [facility] Comment on above: Performed By: #### L 100.0100, L500.2500 ####[facility] [address] [place], [address] Monocytes/100 WBC (Bld) 9.7 % Normal 0-10 [facility] Comment on above: Performed By: #### L 100.0100, L500.2500 ####[facility] [address] [place], [address] Neutrophils/100 WBC (Bld) 58.8 % Normal 47-70 [facility] Comment on above: Performed By: #### L 100.0100, L500.2500 ####[facility] [address] [place], [address] Nucleated RBC (Bld) [#/Vol] 0 10*3/uL Normal 0-5 [facility] Comment on above: Performed By: #### L 100.0100, L500.2500 ####[facility] [address] [place], [address] Platelet mean volume (Bld) [Entitic vol] 10.3 fL Normal 6.2-12.0 [facility] Comment on above: Performed By: #### L 100.0100, L500.2500 ####[facility] [address] [place], [address] Platelets (Bld) [#/Vol] 198 10*3/uL Normal 150-450 [facility] Comment on above: Performed By: #### L 100.0100, L500.2500 ####[facility] [address] [place], [address] RBC (Bld) [#/Vol] 4.13 10*6/uL Low 4.2-5.4 [facility] Comment on above: Performed By: #### L 100.0100, L500.2500 ####[facility] [address] [place], [address] RDW SD 43.9 fl Normal 35.1-43.9 [facility] Comment on above: Performed By: #### L 100.0100, L500.2500 ####[facility] [address] [place], [address] WBC (Bld) [#/Vol] 7.2 10*3/uL Normal 4.4-11.0 [facility] Comment on above: Performed By: #### L 100.0100, L500.2500 ####[facility] [address] [place], [address] Carbon dioxide measurementOr dered By: Sukumar Eddy on 01-18-2024 CO2 [Moles/Vol] 30.0 mmol/L 21.0-32.0 [facility] Chloride measurementOrdered By: Sukumar Eddy on 01-18-2024 Chloride [Moles/Vol] 105 mmol/L 98-107 [facility] Discharge Instructionon 01-07 Discharge Instruction Normal [facility] Eosinophil percentageOrdered By: Sukumar Eddy on 01-18-2024 Eosinophils/100 WBC (Bld) 0.0 % 0-5 [facility] Erythrocyte distribution wid th ratioOrdered By: Sukumar Eddy on 01-18-2024 Erythrocyte distribution width (RBC) [Ratio] 12.9 % 11.6-14.6 [facility] Erythrocyte distribution wid th standard deviationOrdered By: Sukumar Eddy on 01-18-2024 Erythrocyte distribution width (RBC) [Entitic vol] 43.9 fL 35.1-43.9 [facility] Estimated glomerular filtrat ion rate (GFR) AmericanOrdered By: Sukumar Eddy on 01-18-2024 Estimated GFR (MDRD) Amer 118 mL/min >60 [facility] Comment on above: GFR Calc Estimation of creatinine sharon aranceOrdered By: Sukumar Eddy on 01-18-2024 Estimated Creatinine Clearance Calc 48.80 ml/min [facility] Glomerular filtration rate ( GFR) estimationOrdered By: Sukumar Eddy on 01-18-2024 Estimated GFR (MDRD) Non-Af Amer 97 mL/min >60 [facility] Comment on above: Non- GFR Calc Glucose measurementOrdered B y: Sukumar Eddy on 01-18-2024 Glucose [Mass/Vol] 124 mg/dL High 74-106 [facility] Comment on above: Fasting Glucose resu lt from 100 to 125 mg/dL suggests IMPAIRED HOMEOSTASIS per A.D.A. criteria. Hematocrit Auto (Bld) [Volum e fraction]Ordered By: Sukumar Eddy on 01-18-2024 Hematocrit (Bld) [Volume fraction] 38.3 % 37-47 [facility] Hemoglobin measurementOrdere d By: Sukumar Eddy on 01-18-2024 Hemoglobin (Bld) [Mass/Vol] 13.1 g/dL 12.0-15.0 [facility] Immature granulocytes/100 WB C Auto (Bld)Ordered By: Sukumar Eddy on 01-18-2024 Immature granulocytes/100 WBC (Bld) 0.600 % 0.0-0.9 [facility] Comment on above: IG% - Immature Granu locytes (promyelocytes, myelocytes and metamyelocytes) > 1% indicates that a LEFT SHIFT is Present. International normalized rat io (INR) calculationOrdered By: Sukumar Eddy on 01-18-2024 INR Coag (Bld) [Relative time] 3.0 {INR} [facility] Lymphocytes Auto (Unsp spec) [#/Vol]Ordered By: Sukumar Eddy on 01-18-2024 Lymphocytes (Bld) [#/Vol] 2.17 10*3/uL 0.83-4.51 [facility] Lymphocytes/100 WBC Auto (Un sp spec)Ordered By: Sukumar Eddy on 01-18-2024 Lymphocytes/100 WBC (Bld) 30.1 % 19-41 [facility] MCV (mean corpuscular volume ) determinationOrdered By: Sukumar Eddy on 01-18-2024 MCV (RBC) [Entitic vol] 92.7 fL 81-99 [facility] Mean corpuscular hemoglobin (MCH) determinationOrdered By: Sukumar Eddy on 01-18-2024 MCH (RBC) [Entitic mass] 31.7 pg 27.0-32.0 [facility] Mean corpuscular hemoglobin concentration (MCHC) determinationOrdered By: Sukumar Eddy on 01-18-2024 MCHC (RBC) [Mass/Vol] 34.2 g/dL 32-36 [facility] Mean platelet volume determi nationOrdered By: Sukumar Eddy on 01-18-2024 Platelet mean volume (Bld) [Entitic vol] 10.3 fL 6.2-12.0 [facility] Monocyte percentageOrdered B y: Sukumar Eddy on 01-18-2024 Monocytes/100 WBC (Bld) 9.7 % 0-10 [facility] Neutrophil percentageOrdered By: Sukumar Eddy on 01-18-2024 Neutrophils/100 WBC (Bld) 58.8 % 47-70 [facility] Nucleated red blood cell per centageOrdered By: Sukumar Eddy on 01-18-2024 Nucleated RBC/100 WBC (Bld) [Ratio] 0 % 0-5 [facility] Platelet countOrdered By: Shelbie Eddy on 01-18-2024 Platelets (Bld) [#/Vol] 198 10*3/uL 150-450 [facility] Potassium measurementOrdered By: Sukumar Eddy on 01-18-2024 Potassium [Moles/Vol] 3.3 mmol/L Low 3.5-5.1 [facility] Prothrombin Time w/INRon INR Coag (PPP) [Relative time] 3.0 {INR} Normal [facility] Comment on above: Performed By: #### L 300.9481 ####[facility] [address] [place], [place], [id number] PT Coag (PPP) [Time] 31.3 s High 11.7-14.9 [facility] Comment on above: Performed By: #### L 300.3900 ####[facility] [address] [place], [place], [id number] Prothrombin timeOrdered By: Sukumar Eddy on 01-18-2024 PT Coag (PPP) [Time] 31.3 s High 11.7-14.9 [facility] RBC Auto (Bld) [#/Vol]Ordere d By: Sukumar Eddy on 01-18-2024 RBC (Bld) [#/Vol] 4.13 10*6/uL Low 4.2-5.4 [facility] Serum anion gap measurementO rdered By: Sukumar Eddy on 01-18-2024 Anion gap [Moles/Vol] 5 mmol/L 5-15 [facility] Serum or plasma calcium tres urement (mass/volume)Ordered By: Sukumar Eddy on 01-18-2024 Calcium [Mass/Vol] 8.9 mg/dL 8.5-10.1 [facility] Serum or plasma creatinine m easurement (mass/volume)Ordered By: Sukumar Eddy on 01-18-2024 Creatinine [Mass/Vol] 0.63 mg/dL 0.55-1.02 [facility] Comment on above: The validity of the calculated GFR & GFRAA in patients over 70 years has not been determined. Clinical correlation is essential. Serum or plasma urea nitroge n measurement (mass/volume)Ordered By: Sukumar Eddy on 01-18-2024 Urea nitrogen [Mass/Vol] 14 mg/dL 7-18 [facility] Sodium levelOrdered By: Juan Manuel Eddy on 01-18-2024 Sodium [Moles/Vol] 140 mmol/L 136-145 [facility] White blood cell (WBC) count Ordered By: Sukumar Eddy on 01-18-2024 WBC (Bld) [#/Vol] 7.2 10*3/uL 4.4-11.0 [facility] 12 Lead EKGon 01-17-2024 12 Lead EKG Normal [facility] Basic Metabolic Profile (BMP )on 01-17-2024 BUN/CRE 12.1 RATIO Normal 10-20 [facility] Comment on above: Order Comment: 'TROP ' Serial specimen #1, #2 or #3: 1 Performed By: #### L 501.4020, L501.5200, L100.0100, L500.2500, L501.9520 ####[facility] [address] [place], [address] CA,Total 9.3 mg/dL Normal 8.5-10.1 [facility] Comment on above: Order Comment: 'TROP ' Serial specimen #1, #2 or #3: 1 Performed By: #### L 501.4020, L501.5200, L100.0100, L500.2500, L501.9520 ####[facility] [address] [place], [address] Chloride [Moles/Vol] 100 mmol/L Normal 98-107 [facility] Comment on above: Order Comment: 'TROP ' Serial specimen #1, #2 or #3: 1 Performed By: #### L 501.4020, L501.5200, L100.0100, L500.2500, L501.9520 ####[facility] [address] [place], [address] CO2 [Moles/Vol] 33.0 mmol/L High 21.0-32.0 [facility] Comment on above: Order Comment: 'TROP ' Serial specimen #1, #2 or #3: 1 Performed By: #### L 501.4020, L501.5200, L100.0100, L500.2500, L501.9520 ####[facility] [address] [place], [address] Creatinine [Mass/Vol] 0.66 mg/dL Normal 0.55-1.02 [facility] Comment on above: Order Comment: 'TROP ' Serial specimen #1, #2 or #3: 1 Result Comment: The validity of the calculated GFR GFRAA in patients over70 years has not been determined. Clinical correlation isessential. Performed By: #### L 501.4020, L501.5200, L100.0100, L500.2500, L501.9520 ####[facility] [address] [place], [address] ECRCL 53.16 ml/min Normal [facility] Comment on above: Order Comment: 'TROP ' Serial specimen #1, #2 or #3: 1 Performed By: #### L 501.4020, L501.5200, L100.0100, L500.2500, L501.9520 ####[facility] [address] [place], [address] EST GFR - AA 112 mL/min Normal >60 [facility] Comment on above: Order Comment: 'TROP ' Serial specimen #1, #2 or #3: 1 Result Comment: Afri can [place]guillan GFR Calc Performed By: #### L 501.4020, L501.5200, L100.0100, L500.2500, L501.9520 ####[facility] [address] [place], [address] GAP 4 Low 5-15 [facility] Comment on above: Order Comment: 'TROP ' Serial specimen #1, #2 or #3: 1 Performed By: #### L 501.4020, L501.5200, L100.0100, L500.2500, L501.9520 ####[facility] [address] [place], [address] GFR/1.73 sq M.predicted among non-blacks MDRD (S/P/Bld) [Vol rate/Area] 93 mL/min/{1.73_m2} Normal >60 [facility] Comment on above: Order Comment: 'TROP ' Serial specimen #1, #2 or #3: 1 Result Comment: Non- GFR Calc Performed By: #### L 501.4020, L501.5200, L100.0100, L500.2500, L501.9520 ####[facility] [address] [place], [address] Glucose [Mass/Vol] 122 mg/dL High 74-106 [facility] Comment on above: Order Comment: 'TROP ' Serial specimen #1, #2 or #3: 1 Result Comment: Fast ing Glucose result from 100 to 125 mg/dLsuggests IMPAIRED HOMEOSTASIS per A.D.A. criteria. Performed By: #### L 501.4020, L501.5200, L100.0100, L500.2500, L501.9520 ####[facility] [address] [place], [address] Potassium [Moles/Vol] 3.2 mmol/L Low 3.5-5.1 [facility] Comment on above: Order Comment: 'TROP ' Serial specimen #1, #2 or #3: 1 Performed By: #### L 501.4020, L501.5200, L100.0100, L500.2500, L501.9520 ####[facility] [address] [place], [address] Sodium [Moles/Vol] 137 mmol/L Normal 136-145 [facility] Comment on above: Order Comment: 'TROP ' Serial specimen #1, #2 or #3: 1 Performed By: #### L 501.4020, L501.5200, L100.0100, L500.2500, L501.9520 ####[facility] [address] [place], [address] Urea nitrogen [Mass/Vol] 8 mg/dL Normal 7-18 [facility] Comment on above: Order Comment: 'TROP ' Serial specimen #1, #2 or #3: 1 Performed By: #### L 501.4020, L501.5200, L100.0100, L500.2500, L501.9520 ####[facility] [address] [place], [address] Bilirubin Test strip Ql (U)O rdered By: Jose Carrion on 01-17-2024 Bilirubin Ql (U) Negative Negative [facility] Brain/Head without Contrasto n 01-17-2024 Brain/Head without Contrast Normal [facility] CBC W/Diff, Automatedon 01-07 Absolute Lymph 2.02 X10 3/uL Normal 0.83-4.51 [facility] Comment on above: Performed By: #### L 501.4020, L501.5200, L100.0100, L500.2500, L501.9520 ####[facility] [address] [place], [address] Absolute Neut 4.2 X10 3/uL Normal 2.0-7.7 [facility] Comment on above: Performed By: #### L 501.4020, L501.5200, L100.0100, L500.2500, L501.9520 ####[facility] [address] [place], [address] Basophils/100 WBC (Bld) 0.9 % Normal 0-1 [facility] Comment on above: Performed By: #### L 501.4020, L501.5200, L100.0100, L500.2500, L501.9520 ####[facility] [address] [place], [address] Eosinophils/100 WBC (Bld) 0.0 % Normal 0-5 [facility] Comment on above: Performed By: #### L 501.4020, L501.5200, L100.0100, L500.2500, L501.9520 ####[facility] [address] [place], [address] Erythrocyte distribution width (RBC) [Ratio] 12.5 % Normal 11.6-14.6 [facility] Comment on above: Performed By: #### L 501.4020, L501.5200, L100.0100, L500.2500, L501.9520 ####[facility] [address] [place], [address] Hematocrit (Bld) [Volume fraction] 40.4 % Normal 37-47 [facility] Comment on above: Performed By: #### L 501.4020, L501.5200, L100.0100, L500.2500, L501.9520 ####[facility] [address] [place], [address] Hemoglobin (Bld) [Mass/Vol] 13.6 g/dL Normal 12.0-15.0 [facility] Comment on above: Performed By: #### L 501.4020, L501.5200, L100.0100, L500.2500, L501.9520 ####[facility] [address] [place], [address] IG% 0.700 Normal 0.0-0.9 [facility] Comment on above: Result Comment: IG% - Immature Granulocytes (promyelocytes, myelocytes andmetamyelocytes) > 1% indicates that a LEFT SHIFT is Present. Performed By: #### L 501.4020, L501.5200, L100.0100, L500.2500, L501.9520 ####[facility] [address] [place], [address] Lymphocytes/100 WBC (Bld) 29.5 % Normal 19-41 [facility] Comment on above: Performed By: #### L 501.4020, L501.5200, L100.0100, L500.2500, L501.9520 ####[facility] [address] [place], [address] MCH (RBC) [Entitic mass] 31.1 pg Normal 27.0-32.0 [facility] Comment on above: Performed By: #### L 501.4020, L501.5200, L100.0100, L500.2500, L501.9520 ####[facility] [address] [place], [address] MCHC (RBC) [Mass/Vol] 33.7 g/dL Normal 32-36 [facility] Comment on above: Performed By: #### L 501.4020, L501.5200, L100.0100, L500.2500, L501.9520 ####[facility] [address] [place], [address] MCV (RBC) [Entitic vol] 92.4 fL Normal 81-99 [facility] Comment on above: Performed By: #### L 501.4020, L501.5200, L100.0100, L500.2500, L501.9520 ####[facility] [address] [place], [address] Monocytes/100 WBC (Bld) 8.2 % Normal 0-10 [facility] Comment on above: Performed By: #### L 501.4020, L501.5200, L100.0100, L500.2500, L501.9520 ####[facility] [address] [place], [address] Neutrophils/100 WBC (Bld) 60.7 % Normal 47-70 [facility] Comment on above: Performed By: #### L 501.4020, L501.5200, L100.0100, L500.2500, L501.9520 ####[facility] [address] [place], [address] Nucleated RBC (Bld) [#/Vol] 0 10*3/uL Normal 0-5 [facility] Comment on above: Performed By: #### L 501.4020, L501.5200, L100.0100, L500.2500, L501.9520 ####[facility] [address] [place], [address] Platelet mean volume (Bld) [Entitic vol] 10.0 fL Normal 6.2-12.0 [facility] Comment on above: Performed By: #### L 501.4020, L501.5200, L100.0100, L500.2500, L501.9520 ####[facility] [address] [place], [address] Platelets (Bld) [#/Vol] 212 10*3/uL Normal 150-450 [facility] Comment on above: Performed By: #### L 501.4020, L501.5200, L100.0100, L500.2500, L501.9520 ####[facility] [address] [place], [address] RBC (Bld) [#/Vol] 4.37 10*6/uL Normal 4.2-5.4 [facility] Comment on above: Performed By: #### L 501.4020, L501.5200, L100.0100, L500.2500, L501.9520 ####[facility] [address] [place], [address] RDW SD 42.8 fl Normal 35.1-43.9 [facility] Comment on above: Performed By: #### L 501.4020, L501.5200, L100.0100, L500.2500, L501.9520 ####[facility] [address] [place], [address] WBC (Bld) [#/Vol] 6.8 10*3/uL Normal 4.4-11.0 [facility] Comment on above: Performed By: #### L 501.4020, L501.5200, L100.0100, L500.2500, L501.9520 ####[facility] [address] [place], [address] Chest PA and Lateralon 01-16 Chest PA and Lateral Normal [facility] Emergency Department Summary on 01-17-2024 Emergency Department Summary Normal [facility] Epithelial cells.squamous LM Ql (Urine sed)Ordered By: Jose Carrion on 01-17-2024 Epithelial cells.squamous LM.HPF (Urine sed) [#/Area] 0 /[HPF] 5-10 [facility] Glucose Ql (U)Ordered By: Estiven Carrion on 01-17-2024 Urine Glucose (UA) Normal mg/dl Normal [facility] H AND P Exam - Hospitaliston 01-17-2024 H&P Exam - Hospitalist Normal [facility] Ketones Test strip Ql (U)Ord ered By: Jose Carrion on 01-17-2024 Ketones Ql (U) Negative Negative [facility] L501.4020on 01-17-2024 TROPONIN-I HS 95 pg/mL High 3.0-54.0 [facility] Comment on above: Order Comment: 'TROP ' Serial specimen #1, #2 or #3: 2 Result Comment: Plea se Note: New Test Units and Gender Specific Reference Ranges. For more information see Policy Stat Procedure [place] High Sensitivity Troponin (TNIH) and attachments. Performed By: #### L 501.4020 ####[facility] [address] [place], [address] TROPONIN-I HS 86 pg/mL High 3.0-54.0 [facility] Comment on above: Order Comment: 'TROP ' Serial specimen #1, #2 or #3: 1 Result Comment: Plea se Note: New Test Units and Gender Specific Reference Ranges. For more information see Policy Stat Procedure [place] High Sensitivity Troponin (TNIH) and attachments. Performed By: #### L 501.4020, L501.5200, L100.0100, L500.2500, L501.9520 ####[facility] [address] [place], [address] Magnesiumon 01-17-2024 Magnesium [Mass/Vol] 2.0 mg/dL Normal 1.6-2.6 [facility] Comment on above: Order Comment: 'TROP ' Serial specimen #1, #2 or #3: 1 Performed By: #### L 501.4020, L501.5200, L100.0100, L500.2500, L501.9520 ####[facility] [address] [place], [address] Magnesium measurementOrdered By: Jose Carrion on 01-17-2024 Magnesium [Mass/Vol] 2.0 mg/dL 1.6-2.6 [facility] Microscopic analysis of urin e for red blood cells (RBC)Ordered By: Jose Carrion on 01-17-2024 Urine RBC 0 SEEN /hpf 0-5 [facility] Mucus LM Ql (Urine sed)Order ed By: Jose Carrion on 01-17-2024 Mucus Ql (Urine sed) 0 SEEN /hpf [facility] Nitrite Test strip Ql (U)Ord ered By: Jose Carrion on 01-17-2024 Nitrite Ql (U) Negative Negative [facility] Partial Thromboplast Timeon 01-17-2024 aPTT Coag (Bld) [Time] 34.5 s Normal 24.1-36.2 [facility] Comment on above: Performed By: #### L 300.3900, L300.4310 ####[facility] [address] [place], [address] Protein Test strip Ql (U)Ord ered By: Jose Carrion on 01-17-2024 Protein Ql (U) Negative Negative [facility] Prothrombin Time w/INRon INR Coag (PPP) [Relative time] 2.7 {INR} Normal [facility] Comment on above: Performed By: #### L 300.3900, L300.4310 ####[facility] [address] [place], [address] PT Coag (PPP) [Time] 28.3 s High 11.7-14.9 [facility] Comment on above: Performed By: #### L 300.3900, L300.4310 ####[facility] [address] [place], [address] Shoulder min 2 Viewson 01-16 Shoulder min 2 Views Normal [facility] Spine Cervical without Contr ason 01-17-2024 Spine Cervical without Contras Normal [facility] TSH QnOrdered By: Jose villavicencio on 01-17-2024 Thyroid Stimulating Hormone (TSH) 1.280 uIU/mL 0.358-3.740 [facility] Thyroid Stim Hormone (TSH)on 01-17-2024 TSH 1.280 uIU/mL Normal 0.358-3.740 [facility] Comment on above: Order Comment: 'TROP ' Serial specimen #1, #2 or #3: 1 Performed By: #### L 501.4020, L501.5200, L100.0100, L500.2500, L501.9520 ####[facility] [address] [place], [address] Troponin IOrdered By: Jose Carrion on 01-17-2024 Troponin I High Sensitivity 95 pg/mL High 3.0-54.0 [facility] Comment on above: Please Note: New Marnie t Units and Gender Specific Reference Ranges. For more information see Policy Stat Procedure [place] High Sensitivity Troponin (TNIH) and attachments. Urinalysis, Completeon 01-16 EPI,SQUAMOUS 0-5 SEEN Normal 5-10 [facility] Comment on above: Order Comment: COLLE CTOR TO SPECIFY Performed By: #### L 400.0001 ####[facility] [address] [place], [address] BACTERIA 0 SEEN Normal None Seen [facility] Comment on above: Order Comment: COLLE CTOR TO SPECIFY Performed By: #### L 400.0001 ####[facility] [address] [place], [address] Mucus Ql (Urine sed) 0 SEEN Normal [facility] Comment on above: Order Comment: COLLE CTOR TO SPECIFY Performed By: #### L 400.0001 ####[facility] [address] [place], [address] RBC 0 SEEN Normal 0-5 [facility] Comment on above: Order Comment: BEST CTOR TO SPECIFY Performed By: #### L 400.0001 ####[facility] [address] [place], [address] WBC 0 SEEN Normal 0-5 [facility] Comment on above: Order Comment: BEST CTOR TO SPECIFY Performed By: #### L 400.0001 ####[facility] [address] [place], [place], [id number] Urine blood detectionOrdered By: Jose Carrion on 01-17-2024 Urine Occult Blood 10 /ul High Negative [facility] Urine clarityOrdered By: Anjelica Carrion on 01-17-2024 Clarity (U) Sl. Cloudy Clear [facility] Urine color determinationOrd ered By: Jose Carrion on 01-17-2024 Color (U) Yellow Yellow [facility] Urine leukocyte esterase det ection by dipstickOrdered By: Jose Carrion on 01-17-2024 Leukocyte esterase Test strip Ql (U) Negative Negative [facility] Urine pHOrdered By: Jose neil on 01-17-2024 pH (U) 7.0 [pH] 5.0 - 8.0 [facility] Urine sediment bacteria coun t by microscopy (number/high power field)Ordered By: Jose Carrion on 01-17-2024 Bacteria LM.HPF (Urine sed) [#/Area] 0 /[HPF] None Seen [facility] Urine specific gravity measu rementOrdered By: Jose Carrion on 01-17-2024 Specific gravity (U) [Rel density] 1.005 1.002-1.030 [facility] Urobilinogen Ql (U)Ordered B y: Jose Carrion on 01-17-2024 Urine Urobilinogen Normal mg/dl Normal [facility] White blood cell countOrdere d By: Jose Carrion on 01-17-2024 Urine WBC 0 SEEN /hpf 0-5 [facility] aPTT Coag (PPP) [Time]Ordere d By: Jose Carrion on 01-17-2024 aPTT Coag (Bld) [Time] 34.5 s 24.1-36.2 [facility] L501.4020on 12-31-2023 TROPONIN-I HS 90 pg/mL High 3.0-54.0 [facility] Comment on above: Order Comment: 'TROP ' Serial specimen #1, #2 or #3: 2 Result Comment: Jamal allen Note: New Test Units and Gender Specific Reference Ranges. For more information see Policy Stat Procedure [place] High Sensitivity Troponin (TNIH) and attachments. Performed By: #### L 501.4020 ####[facility] [address] [place], [place], [address] 12 Lead EKGon 12-30-2023 12 Lead EKG Normal [facility] Absolute neutrophil countOrd ered By: Ava Good on 12-30-2023 Neutrophils (Bld) [#/Vol] 2.7 10*3/uL 2.0-7.7 [facility] Albumin to globulin ratioOrd ered By: Ava Good on 12-30-2023 Albumin/Globulin [Mass ratio] 1.2 {ratio} 0.9-2.4 [facility] Bacteria LM.HPF (Urine sed) [#/Area]Ordered By: Ava Good on 12-30-2023 Urine Bacteria RARE /hpf None Seen [facility] Basophil percentageOrdered B y: Ava Good on 12-30-2023 Basophils/100 WBC (Bld) 1.5 % High 0-1 [facility] Bilirubin Test strip Ql (U)O rdered By: Ava Good on 12-30-2023 Bilirubin Ql (U) Negative Negative [facility] Bilirubin, totalOrdered By: Ava Good on 12-30-2023 Bilirubin [Mass/Vol] 0.30 mg/dL 0.20-1.00 [facility] Comment on above: For patients on eltr ombopag therapy, use of Dimension [place] TBIL is not recommended. Blood urea nitrogen (BUN)/cr eatinine ratioOrdered By: Ava Good on 12-30-2023 Urea nitrogen/Creatinine [Mass ratio] 16.6 mg/mg 10-20 [facility] Brain/Head without Contrasto n 12-30-2023 Brain/Head without Contrast Normal [facility] CBC W/Diff, Automatedon - Absolute Lymph 2.00 X10 3/uL Normal 0.83-4.51 [facility] Comment on above: Performed By: #### L [id number], L300.3900, L500.4050, L501.2450, L100.0100 ####[facility] [id number] [place], [address] Absolute Neut 2.7 X10 3/uL Normal 2.0-7.7 [facility] Comment on above: Performed By: #### L 501.4020, L300.3900, L500.4050, L501.2450, L100.0100 ####[facility] [address] [place], [address] Basophils/100 WBC (Bld) 1.5 % High 0-1 [facility] Comment on above: Performed By: #### L 501.4020, L300.3900, L500.4050, L501.2450, L100.0100 ####[facility] [address] [place], [address] Eosinophils/100 WBC (Bld) 0.4 % Normal 0-5 [facility] Comment on above: Performed By: #### L 501.4020, L300.3900, L500.4050, L501.2450, L100.0100 ####[facility] [address] [place], [address] Erythrocyte distribution width (RBC) [Ratio] 12.3 % Normal 11.6-14.6 [facility] Comment on above: Performed By: #### L 501.4020, L300.3900, L500.4050, L501.2450, L100.0100 ####[facility] [address] [place], [address] Hematocrit (Bld) [Volume fraction] 40.5 % Normal 37-47 [facility] Comment on above: Performed By: #### L 501.4020, L300.3900, L500.4050, L501.2450, L100.0100 ####[facility] [address] [place], [address] Hemoglobin (Bld) [Mass/Vol] 14.0 g/dL Normal 12.0-15.0 [facility] Comment on above: Performed By: #### L 501.4020, L300.3900, L500.4050, L501.2450, L100.0100 ####[facility] [address] [place], [address] IG% 0.600 Normal 0.0-0.9 [facility] Comment on above: Result Comment: IG% - Immature Granulocytes (promyelocytes, myelocytes andmetamyelocytes) > 1% indicates that a LEFT SHIFT is Present. Performed By: #### L 501.4020, L300.3900, L500.4050, L501.2450, L100.0100 ####[facility] [address] [place], [address] Lymphocytes/100 WBC (Bld) 37.5 % Normal 19-41 [facility] Comment on above: Performed By: #### L 501.4020, L300.3900, L500.4050, L501.2450, L100.0100 ####[facility] [address] [place], [address] MCH (RBC) [Entitic mass] 31.7 pg Normal 27.0-32.0 [facility] Comment on above: Performed By: #### L 501.4020, L300.3900, L500.4050, L501.2450, L100.0100 ####[facility] [address] [place], [address] MCHC (RBC) [Mass/Vol] 34.6 g/dL Normal 32-36 [facility] Comment on above: Performed By: #### L 501.4020, L300.3900, L500.4050, L501.2450, L100.0100 ####[facility] [address] [place], [address] MCV (RBC) [Entitic vol] 91.6 fL Normal 81-99 [facility] Comment on above: Performed By: #### L 501.4020, L300.3900, L500.4050, L501.2450, L100.0100 ####[facility] [address] [place], [address] Monocytes/100 WBC (Bld) 8.8 % Normal 0-10 [facility] Comment on above: Performed By: #### L 501.4020, L300.3900, L500.4050, L501.2450, L100.0100 ####[facility] [address] [place], [address] Neutrophils/100 WBC (Bld) 51.2 % Normal 47-70 [facility] Comment on above: Performed By: #### L 501.4020, L300.3900, L500.4050, L501.2450, L100.0100 ####[facility] [address] [place], [address] Nucleated RBC (Bld) [#/Vol] 0 10*3/uL Normal 0-5 [facility] Comment on above: Performed By: #### L 501.4020, L300.3900, L500.4050, L501.2450, L100.0100 ####[facility] [address] [place], [address] Platelet mean volume (Bld) [Entitic vol] 10.4 fL Normal 6.2-12.0 [facility] Comment on above: Performed By: #### L 501.4020, L300.3900, L500.4050, L501.2450, L100.0100 ####[facility] [address] [place], [address] Platelets (Bld) [#/Vol] 230 10*3/uL Normal 150-450 [facility] Comment on above: Performed By: #### L 501.4020, L300.3900, L500.4050, L501.2450, L100.0100 ####[facility] [address] [place], [address] RBC (Bld) [#/Vol] 4.42 10*6/uL Normal 4.2-5.4 [facility] Comment on above: Performed By: #### L 501.4020, L300.3900, L500.4050, L501.2450, L100.0100 ####[facility] [address] [place], [address] RDW SD 41.2 fl Normal 35.1-43.9 [facility] Comment on above: Performed By: #### L 501.4020, L300.3900, L500.4050, L501.2450, L100.0100 ####[facility] [address] [place], [address] WBC (Bld) [#/Vol] 5.3 10*3/uL Normal 4.4-11.0 [facility] Comment on above: Performed By: #### L 501.4020, L300.3900, L500.4050, L501.2450, L100.0100 ####[facility] [address] [place], [address] Carbon dioxide measurementOr dered By: Ava Good on 12-30-2023 CO2 [Moles/Vol] 32.0 mmol/L 21.0-32.0 [facility] Chest PA and Lateralon 12-29 Chest PA and Lateral Normal [facility] Chloride measurementOrdered By: Ava Good on 12-30-2023 Chloride [Moles/Vol] 97 mmol/L Low 98-107 [facility] Comprehensive Metabolic Prof ilon 12-30-2023 Albumin [Mass/Vol] 3.7 g/dL Normal 3.2-5.0 [facility] Comment on above: Order Comment: 'TROP ' Serial specimen #1, #2 or #3: 1 Performed By: #### L 501.4020, L300.3900, L500.4050, L501.2450, L100.0100 ####[facility] [address] [place], [address] Albumin/Globulin [Mass ratio] 1.2 {ratio} Normal 0.9-2.4 [facility] Comment on above: Order Comment: 'TROP ' Serial specimen #1, #2 or #3: 1 Performed By: #### L 501.4020, L300.3900, L500.4050, L501.2450, L100.0100 ####[facility] [address] [place], [address] ALK P 89 U/L Normal 45-117 [facility] Comment on above: Order Comment: 'TROP ' Serial specimen #1, #2 or #3: 1 Performed By: #### L 501.4020, L300.3900, L500.4050, L501.2450, L100.0100 ####[facility] [address] [place], [address] ALT [Catalytic activity/Vol] 22 U/L Normal 13-56 [facility] Comment on above: Order Comment: 'TROP ' Serial specimen #1, #2 or #3: 1 Performed By: #### L 501.4020, L300.3900, L500.4050, L501.2450, L100.0100 ####[facility] [address] [place], [address] AST [Catalytic activity/Vol] 20 U/L Normal 15-37 [facility] Comment on above: Order Comment: 'TROP ' Serial specimen #1, #2 or #3: 1 Performed By: #### L 501.4020, L300.3900, L500.4050, L501.2450, L100.0100 ####[facility] [address] [place], [address] Bilirubin [Mass/Vol] 0.30 mg/dL Normal 0.20-1.00 [facility] Comment on above: Order Comment: 'TROP ' Serial specimen #1, #2 or #3: 1 Result Comment: For patients on eltrombopag therapy, use of Dimension [place] TBIL is not recommended. Performed By: #### L 501.4020, L300.3900, L500.4050, L501.2450, L100.0100 ####[facility] [address] [place], [address] BUN/CRE 16.6 RATIO Normal 10-20 [facility] Comment on above: Order Comment: 'TROP ' Serial specimen #1, #2 or #3: 1 Performed By: #### L 501.4020, L300.3900, L500.4050, L501.2450, L100.0100 ####[facility] [address] [place], [address] CA,Total 9.1 mg/dL Normal 8.5-10.1 [facility] Comment on above: Order Comment: 'TROP ' Serial specimen #1, #2 or #3: 1 Performed By: #### L 501.4020, L300.3900, L500.4050, L501.2450, L100.0100 ####[facility] [address] [place], [address] Chloride [Moles/Vol] 97 mmol/L Low 98-107 [facility] Comment on above: Order Comment: 'TROP ' Serial specimen #1, #2 or #3: 1 Performed By: #### L 501.4020, L300.3900, L500.4050, L501.2450, L100.0100 ####[facility] [address] [place], [address] CO2 [Moles/Vol] 32.0 mmol/L Normal 21.0-32.0 [facility] Comment on above: Order Comment: 'TROP ' Serial specimen #1, #2 or #3: 1 Performed By: #### L 501.4020, L300.3900, L500.4050, L501.2450, L100.0100 ####[facility] [address] [place], [address] Creatinine [Mass/Vol] 0.54 mg/dL Low 0.55-1.02 [facility] Comment on above: Order Comment: 'TROP ' Serial specimen #1, #2 or #3: 1 Result Comment: The validity of the calculated GFR GFRAA in patients over70 years has not been determined. Clinical correlation isessential. Performed By: #### L 501.4020, L300.3900, L500.4050, L501.2450, L100.0100 ####[facility] [address] [place], [address] ECRCL 48.80 ml/min Normal [facility] Comment on above: Order Comment: 'TROP ' Serial specimen #1, #2 or #3: 1 Performed By: #### L 501.4020, L300.3900, L500.4050, L501.2450, L100.0100 ####[facility] [address] [place], [address] EST GFR - AA 141 mL/min Normal >60 [facility] Comment on above: Order Comment: 'TROP ' Serial specimen #1, #2 or #3: 1 Result Comment: Afri can [place]guillan GFR Calc Performed By: #### L 501.4020, L300.3900, L500.4050, L501.2450, L100.0100 ####[facility] [address] [place], [address] GAP 6 Normal 5-15 [facility] Comment on above: Order Comment: 'TROP ' Serial specimen #1, #2 or #3: 1 Performed By: #### L 501.4020, L300.3900, L500.4050, L501.2450, L100.0100 ####[facility] [address] [place], [address] GFR/1.73 sq M.predicted among non-blacks MDRD (S/P/Bld) [Vol rate/Area] 117 mL/min/{1.73_m2} Normal >60 [facility] Comment on above: Order Comment: 'TROP ' Serial specimen #1, #2 or #3: 1 Result Comment: Non- GFR Calc Performed By: #### L 501.4020, L300.3900, L500.4050, L501.2450, L100.0100 ####[facility] [address] [place], [address] Globulin (S) [Mass/Vol] 3.2 g/dL Normal 2.2-4.2 [facility] Comment on above: Order Comment: 'TROP ' Serial specimen #1, #2 or #3: 1 Performed By: #### L 501.4020, L300.3900, L500.4050, L501.2450, L100.0100 ####[facility] [address] [place], [address] Glucose [Mass/Vol] 118 mg/dL High 74-106 [facility] Comment on above: Order Comment: 'TROP ' Serial specimen #1, #2 or #3: 1 Result Comment: Fast ing Glucose result from 100 to 125 mg/dLsuggests IMPAIRED HOMEOSTASIS per A.D.A. criteria. Performed By: #### L 501.4020, L300.3900, L500.4050, L501.2450, L100.0100 ####[facility] [address] [place], [address] Potassium [Moles/Vol] 3.3 mmol/L Low 3.5-5.1 [facility] Comment on above: Order Comment: 'TROP ' Serial specimen #1, #2 or #3: 1 Performed By: #### L 501.4020, L300.3900, L500.4050, L501.2450, L100.0100 ####[facility] [address] [place], [address] Sodium [Moles/Vol] 135 mmol/L Low 136-145 [facility] Comment on above: Order Comment: 'TROP ' Serial specimen #1, #2 or #3: 1 Performed By: #### L 501.4020, L300.3900, L500.4050, L501.2450, L100.0100 ####[facility] [address] [place], [address] T PROT 6.9 g/dL Normal 6.4-8.2 [facility] Comment on above: Order Comment: 'TROP ' Serial specimen #1, #2 or #3: 1 Performed By: #### L 501.4020, L300.3900, L500.4050, L501.2450, L100.0100 ####[facility] [address] [place], [address] Urea nitrogen [Mass/Vol] 9 mg/dL Normal 7-18 [facility] Comment on above: Order Comment: 'TROP ' Serial specimen #1, #2 or #3: 1 Performed By: #### L 501.4020, L300.3900, L500.4050, L501.2450, L100.0100 ####[facility] [address] [place], [address] Emergency Department Summary on 12-30-2023 Emergency Department Summary Normal [facility] Eosinophil percentageOrdered By: Ava Good on 12-30-2023 Eosinophils/100 WBC (Bld) 0.4 % 0-5 [facility] Epithelial cells.squamous LM Ql (Urine sed)Ordered By: Ava Good on 12-30-2023 Epithelial cells.squamous LM.HPF (Urine sed) [#/Area] 0 /[HPF] 5-10 [facility] Erythrocyte distribution wid th ratioOrdered By: Ava Good on 12-30-2023 Erythrocyte distribution width (RBC) [Ratio] 12.3 % 11.6-14.6 [facility] Erythrocyte distribution wid th standard deviationOrdered By: Ava Good on 12-30-2023 Erythrocyte distribution width (RBC) [Entitic vol] 41.2 fL 35.1-43.9 [facility] Estimated glomerular filtrat ion rate (GFR) AmericanOrdered By: Ava Good on 12-30-2023 Estimated GFR (MDRD) Amer 141 mL/min >60 [facility] Comment on above: GFR Calc Estimation of creatinine sharon aranceOrdered By: Ava Good on 12-30-2023 Estimated Creatinine Clearance Calc 48.80 ml/min [facility] Glomerular filtration rate ( GFR) estimationOrdered By: Ava Good on 12-30-2023 Estimated GFR (MDRD) Non-Af Amer 117 mL/min >60 [facility] Comment on above: Non- GFR Calc Glucose Ql (U)Ordered By: Adis Good on 12-30-2023 Urine Glucose (UA) Normal mg/dl Normal [facility] Glucose measurementOrdered B y: Ava Good on 12-30-2023 Glucose [Mass/Vol] 118 mg/dL High 74-106 [facility] Comment on above: Fasting Glucose resu lt from 100 to 125 mg/dL suggests IMPAIRED HOMEOSTASIS per A.D.A. criteria. Hematocrit Auto (Bld) [Volum e fraction]Ordered By: Ava Good on 12-30-2023 Hematocrit (Bld) [Volume fraction] 40.5 % 37-47 [facility] Hemoglobin measurementOrdere d By: Ava Good on 12-30-2023 Hemoglobin (Bld) [Mass/Vol] 14.0 g/dL 12.0-15.0 [facility] Immature granulocytes/100 WB C Auto (Bld)Ordered By: Ava Good on 12-30-2023 Immature granulocytes/100 WBC (Bld) 0.600 % 0.0-0.9 [facility] Comment on above: IG% - Immature Granu locytes (promyelocytes, myelocytes and metamyelocytes) > 1% indicates that a LEFT SHIFT is Present. Influenza virus A and B and SARS-CoV-2 (COVID-19) and Respiratory syncytial virus RNAOrdered By: Ava Good on 12-30-2023 SARS-CoV-2 (COVID-19) RNA ROBERTA+probe Ql (Unsp spec) [facility] International normalized rat io (INR) calculationOrdered By: Ava Good on 12-30-2023 INR Coag (Bld) [Relative time] 1.4 {INR} [facility] Ketones Test strip Ql (U)Ord ered By: Ava Good on 12-30-2023 Ketones Ql (U) Negative Negative [facility] L501.4020on 12-30-2023 TROPONIN-I HS 80 pg/mL High 3.0-54.0 [facility] Comment on above: Order Comment: 'TROP ' Serial specimen #1, #2 or #3: 1 Result Comment: Plea se Note: New Test Units and Gender Specific Reference Ranges. For more information see Policy Stat Procedure [place] High Sensitivity Troponin (TNIH) and attachments. Performed By: #### L 501.4020, L300.3900, L500.4050, L501.2450, L100.0100 ####[facility] [address] [place], [address] Laboratory - Chemistry and C hemistry - challengeOrdered By: Ava Good on 12-30-2023 AST [Catalytic activity/Vol] 20 U/L 15-37 [facility] Lipaseon 12-30-2023 Lipase [Catalytic activity/Vol] 29 U/L Normal 13-75 [facility] Comment on above: Order Comment: 'TROP ' Serial specimen #1, #2 or #3: 1 Result Comment: Jamal allen note:LIPASE revised reference range effective 22.New Lipase methodology. Expected to produce lower valuesthan the previous assay method.NEW Reference Range: 13 - 75 U/L Performed By: #### L 501.4020, L300.3900, L500.4050, L501.2450, L100.0100 ####[facility] [address] [place], [place], [address] Lipase measurementOrdered By : Ava Good on 12-30-2023 Lipase [Catalytic activity/Vol] 29 U/L [facility] Comment on above: Please note:LIPASE r evised reference range effective 22. New Lipase methodology. Expected to produce lower values than the previous assay method. NEW Reference Range: 13 - 75 U/L Lymphocytes Auto (Unsp spec) [#/Vol]Ordered By: Ava Good on 12-30-2023 Lymphocytes (Bld) [#/Vol] 2.00 10*3/uL 0.83-4.51 [facility] Lymphocytes/100 WBC Auto (Un sp spec)Ordered By: Ava Good on 12-30-2023 Lymphocytes/100 WBC (Bld) 37.5 % 19-41 [facility] M100.678on 12-30-2023 M100.678 Pending SARS-CoV-2 (COVID 19) Negative INFLUENZA A Negative INFLUENZA B Negative RSV PCR Negative Normal [facility] Comment on above: Performed By: #### M 100.678, L400.0001 ####[facility] [address] [place], [address] MCV (mean corpuscular volume ) determinationOrdered By: Ava Good on 12-30-2023 MCV (RBC) [Entitic vol] 91.6 fL 81-99 [facility] Mean corpuscular hemoglobin (MCH) determinationOrdered By: Ava Good on 12-30-2023 MCH (RBC) [Entitic mass] 31.7 pg 27.0-32.0 [facility] Mean corpuscular hemoglobin concentration (MCHC) determinationOrdered By: Ava Good on 12-30-2023 MCHC (RBC) [Mass/Vol] 34.6 g/dL 32-36 [facility] Mean platelet volume determi nationOrdered By: Ava Good on 12-30-2023 Platelet mean volume (Bld) [Entitic vol] 10.4 fL 6.2-12.0 [facility] Microscopic analysis of urin e for red blood cells (RBC)Ordered By: Ava Good on 12-30-2023 Urine RBC 0-5 SEEN /hpf 0-5 [facility] Monocyte percentageOrdered B y: Ava Good on 12-30-2023 Monocytes/100 WBC (Bld) 8.8 % 0-10 [facility] Mucus LM Ql (Urine sed)Order ed By: Ava Good on 12-30-2023 Mucus Ql (Urine sed) 0 SEEN /hpf [facility] Neutrophil percentageOrdered By: Ava Good on 12-30-2023 Neutrophils/100 WBC (Bld) 51.2 % 47-70 [facility] Nitrite Test strip Ql (U)Ord ered By: Ava Good on 12-30-2023 Nitrite Ql (U) Negative Negative [facility] Nucleated red blood cell per centageOrdered By: Ava Good on 12-30-2023 Nucleated RBC/100 WBC (Bld) [Ratio] 0 % 0-5 [facility] Platelet countOrdered By: Adis Good on 12-30-2023 Platelets (Bld) [#/Vol] 230 10*3/uL 150-450 [facility] Potassium measurementOrdered By: Ava Good on 12-30-2023 Potassium [Moles/Vol] 3.3 mmol/L Low 3.5-5.1 [facility] Protein Test strip Ql (U)Ord ered By: Ava Good on 12-30-2023 Protein Ql (U) Negative Negative [facility] Prothrombin Time w/INRon INR Coag (PPP) [Relative time] 1.4 {INR} Normal [facility] Comment on above: Performed By: #### L 501.4020, L300.3900, L500.4050, L501.2450, L100.0100 ####[facility] [address] [place], [address] PT Coag (PPP) [Time] 16.7 s High 11.7-14.9 [facility] Comment on above: Performed By: #### L 501.4020, L300.3900, L500.4050, L501.2450, L100.0100 ####[facility] [address] [place], [address] Prothrombin timeOrdered By: Ava Good on 12-30-2023 PT Coag (PPP) [Time] 16.7 s High 11.7-14.9 [facility] RBC Auto (Bld) [#/Vol]Ordere d By: Ava Good on 12-30-2023 RBC (Bld) [#/Vol] 4.42 10*6/uL 4.2-5.4 [facility] Serum anion gap measurementO rdered By: Ava Good on 12-30-2023 Anion gap [Moles/Vol] 6 mmol/L 5-15 [facility] Serum globulin measurementOr dered By: Ava Good on 12-30-2023 Globulin (S) [Mass/Vol] 3.2 g/dL 2.2-4.2 [facility] Serum or plasma alanine huang otransferase (ALT) measurementOrdered By: Ava Good on 12-30-2023 ALT [Catalytic activity/Vol] 22 U/L 13-56 [facility] Serum or plasma albumin tres urement (mass/volume)Ordered By: Ava Good on 12-30-2023 Albumin [Mass/Vol] 3.7 g/dL 3.2-5.0 [facility] Serum or plasma alkaline marilynn sphatase measurementOrdered By: Ava Good on 12-30-2023 ALP [Catalytic activity/Vol] 89 U/L 45-117 [facility] Serum or plasma calcium tres urement (mass/volume)Ordered By: Ava Good on 12-30-2023 Calcium [Mass/Vol] 9.1 mg/dL 8.5-10.1 [facility] Serum or plasma creatinine m easurement (mass/volume)Ordered By: Ava Good on 12-30-2023 Creatinine [Mass/Vol] 0.54 mg/dL Low 0.55-1.02 [facility] Comment on above: The validity of the calculated GFR & GFRAA in patients over 70 years has not been determined. Clinical correlation is essential. Serum or plasma urea nitroge n measurement (mass/volume)Ordered By: Ava Good on 12-30-2023 Urea nitrogen [Mass/Vol] 9 mg/dL 7-18 [facility] Sodium levelOrdered By: Adeola Good on 12-30-2023 Sodium [Moles/Vol] 135 mmol/L Low 136-145 [facility] Total proteinOrdered By: Gabi Good on 12-30-2023 Protein [Mass/Vol] 6.9 g/dL 6.4-8.2 [facility] Troponin IOrdered By: Ava Good on 12-30-2023 Troponin I High Sensitivity 90 pg/mL High 3.0-54.0 [facility] Comment on above: Please Note: New Marnie t Units and Gender Specific Reference Ranges. For more information see Policy Stat Procedure [place] High Sensitivity Troponin (TNIH) and attachments. Urinalysis, Completeon 12-29 BACTERIA RARE Normal None Seen [facility] Comment on above: Order Comment: CLEAN CATCH Performed By: #### M 100.678, L400.0001 ####[facility] [address] [place], [address] RBC 0-5 SEEN Normal 0-5 [facility] Comment on above: Order Comment: CLEAN CATCH Performed By: #### M 100.678, L400.0001 ####[facility] [address] [place], [address] EPI,SQUAMOUS 0 SEEN Normal 5-10 [facility] Comment on above: Order Comment: CLEAN CATCH Performed By: #### M 100.678, L400.0001 ####[facility] [address] [place], [address] Mucus Ql (Urine sed) 0 SEEN Normal [facility] Comment on above: Order Comment: CLEAN CATCH Performed By: #### M 100.678, L400.0001 ####[facility] [address] [place], [address] WBC 0 SEEN Normal 0-5 [facility] Comment on above: Order Comment: CLEAN CATCH Performed By: #### M 100.678, L400.0001 ####[facility] [address] [place], [address] Urine blood detectionOrdered By: Ava Good on 12-30-2023 Urine Occult Blood 10 /ul High Negative [facility] Urine clarityOrdered By: Gabi Good on 12-30-2023 Clarity (U) Clear Clear [facility] Urine color determinationOrd ered By: Ava Good on 12-30-2023 Color (U) Yellow Yellow [facility] Urine leukocyte esterase det ection by dipstickOrdered By: Ava Good on 12-30-2023 Leukocyte esterase Test strip Ql (U) Negative Negative [facility] Urine pHOrdered By: Ava worthy on 12-30-2023 pH (U) 8.0 [pH] 5.0 - 8.0 [facility] Urine specific gravity measu rementOrdered By: Ava Good on 12-30-2023 Specific gravity (U) [Rel density] 1.015 1.002-1.030 [facility] Urobilinogen Ql (U)Ordered B y: Ava Good on 12-30-2023 Urine Urobilinogen Normal mg/dl Normal [facility] White blood cell (WBC) count Ordered By: Ava Good on 12-30-2023 WBC (Bld) [#/Vol] 5.3 10*3/uL 4.4-11.0 [facility] White blood cell countOrdere d By: Ava Good on 12-30-2023 Urine WBC 0 SEEN /hpf 0-5 [facility] Absolute neutrophil countOrd ered By: Savage Gilliam on 12-23-2023 Neutrophils (Bld) [#/Vol] 4.7 10*3/uL 2.0-7.7 [facility] Albumin to globulin ratioOrd ered By: Savage Gilliam on 12-23-2023 Albumin/Globulin [Mass ratio] 1.1 {ratio} 0.9-2.4 [facility] Basophil percentageOrdered B y: Savage Gilliam on 12-23-2023 Basophils/100 WBC (Bld) 1.1 % High 0-1 [facility] Bilirubin, totalOrdered By: Savage Gilliam on 12-23-2023 Bilirubin [Mass/Vol] 0.40 mg/dL 0.20-1.00 [facility] Comment on above: For patients on eltr ombopag therapy, use of Dimension [place] TBIL is not recommended. Blood urea nitrogen (BUN)/cr eatinine ratioOrdered By: Savage Maeke on 12-23-2023 Urea nitrogen/Creatinine [Mass ratio] 17.2 mg/mg 10-20 [facility] CBC W/Diff, Automatedon 12-08 Absolute Lymph 1.62 X10 3/uL Normal 0.83-4.51 [facility] Comment on above: Order Comment: Order Date: 12/12/23Order Info: [id number] - CBCD Performed By: #### L 500.4100, L501.9985, L500.4050, L100.0100, L300.3900 ####[facility] [id number] [place], [address] Absolute Neut 4.7 X10 3/uL Normal 2.0-7.7 [facility] Comment on above: Order Comment: Order Date: 12/12/23Order Info: [id number] - CBCD Performed By: #### L 500.4100, L501.9985, L500.4050, L100.0100, L300.3900 ####[facility] [facility] [address] [place], [address] Basophils/100 WBC (Bld) 1.1 % High 0-1 [facility] Comment on above: Order Comment: Order Date: 12/12/23Order Info: [id number] - CBCD Performed By: #### L 500.4100, L501.9985, L500.4050, L100.0100, L300.3900 ####[facility] [address] [place], [address] Eosinophils/100 WBC (Bld) 0.0 % Normal 0-5 [facility] Comment on above: Order Comment: Order Date: 12/12/23Order Info: [id number] - CBCD Performed By: #### L 500.4100, L501.9985, L500.4050, L100.0100, L300.3900 ####[facility] [address] [place], [address] Erythrocyte distribution width (RBC) [Ratio] 12.5 % Normal 11.6-14.6 [facility] Comment on above: Order Comment: Order Date: 12/12/23Order Info: [id number] - CBCD Performed By: #### L 500.4100, L501.9985, L500.4050, L100.0100, L300.3900 ####[facility] [address] [place], [address] Hematocrit (Bld) [Volume fraction] 42.6 % Normal 37-47 [facility] Comment on above: Order Comment: Order Date: 12/12/23Order Info: [id number] - CBCD Performed By: #### L 500.4100, L501.9985, L500.4050, L100.0100, L300.3900 ####[facility] [address] [place], [address] Hemoglobin (Bld) [Mass/Vol] 14.2 g/dL Normal 12.0-15.0 [facility] Comment on above: Order Comment: Order Date: 12/12/23Order Info: [id number] - CBCD Performed By: #### L 500.4100, L501.9985, L500.4050, L100.0100, L300.3900 ####[facility] [address] [place], [address] IG% 0.600 Normal 0.0-0.9 [facility] Comment on above: Order Comment: Order Date: 12/12/23Order Info: [id number] - CBCD Result Comment: IG% - Immature Granulocytes (promyelocytes, myelocytes andmetamyelocytes) > 1% indicates that a LEFT SHIFT is Present. Performed By: #### L 500.4100, L501.9985, L500.4050, L100.0100, L300.3900 ####[facility] [address] [place], [address] Lymphocytes/100 WBC (Bld) 23.2 % Normal 19-41 [facility] Comment on above: Order Comment: Order Date: 12/12/23Order Info: [id number] - CBCD Performed By: #### L 500.4100, L501.9985, L500.4050, L100.0100, L300.3900 ####[facility] [address] [place], [address] MCH (RBC) [Entitic mass] 30.9 pg Normal 27.0-32.0 [facility] Comment on above: Order Comment: Order Date: 12/12/23Order Info: [id number] - CBCD Performed By: #### L 500.4100, L501.9985, L500.4050, L100.0100, L300.3900 ####[facility] [address] [place], [address] MCHC (RBC) [Mass/Vol] 33.3 g/dL Normal 32-36 [facility] Comment on above: Order Comment: Order Date: 12/12/23Order Info: [id number] - CBCD Performed By: #### L 500.4100, L501.9985, L500.4050, L100.0100, L300.3900 ####[facility] [address] [place], [address] MCV (RBC) [Entitic vol] 92.6 fL Normal 81-99 [facility] Comment on above: Order Comment: Order Date: 12/12/23Order Info: [id number] - CBCD Performed By: #### L 500.4100, L501.9985, L500.4050, L100.0100, L300.3900 ####[facility] [address] [place], [address] Monocytes/100 WBC (Bld) 8.3 % Normal 0-10 [facility] Comment on above: Order Comment: Order Date: 12/12/23Order Info: [id number] - CBCD Performed By: #### L 500.4100, L501.9985, L500.4050, L100.0100, L300.3900 ####[facility] [address] [place], [address] Neutrophils/100 WBC (Bld) 66.8 % Normal 47-70 [facility] Comment on above: Order Comment: Order Date: 12/12/23Order Info: [id number] - CBCD Performed By: #### L 500.4100, L501.9985, L500.4050, L100.0100, L300.3900 ####[facility] [address] [place], [address] Nucleated RBC (Bld) [#/Vol] 0 10*3/uL Normal 0-5 [facility] Comment on above: Order Comment: Order Date: 12/12/23Order Info: [id number] - CBCD Performed By: #### L 500.4100, L501.9985, L500.4050, L100.0100, L300.3900 ####[facility] [address] [place], [address] Platelet mean volume (Bld) [Entitic vol] 10.1 fL Normal 6.2-12.0 [facility] Comment on above: Order Comment: Order Date: 12/12/23Order Info: [id number] - CBCD Performed By: #### L 500.4100, L501.9985, L500.4050, L100.0100, L300.3900 ####[facility] [address] [place], [address] Platelets (Bld) [#/Vol] 245 10*3/uL Normal 150-450 [facility] Comment on above: Order Comment: Order Date: 12/12/23Order Info: [id number]- - CBCD Performed By: #### L 500.4100, L501.9985, L500.4050, L100.0100, L300.3900 ####[facility] [address] [place], [address] RBC (Bld) [#/Vol] 4.60 10*6/uL Normal 4.2-5.4 [facility] Comment on above: Order Comment: Order Date: 12/12/23Order Info: [id number]- - CBCD Performed By: #### L 500.4100, L501.9985, L500.4050, L100.0100, L300.3900 ####[facility] [address] [place], [address] RDW SD 42.3 fl Normal 35.1-43.9 [facility] Comment on above: Order Comment: Order Date: 12/12/23Order Info: [id number] - CBCD Performed By: #### L 500.4100, L501.9985, L500.4050, L100.0100, L300.3900 ####[facility] [address] [place], [address] WBC (Bld) [#/Vol] 7.0 10*3/uL Normal 4.4-11.0 [facility] Comment on above: Order Comment: Order Date: 12/12/23Order Info: [id number] - CBCD Performed By: #### L 500.4100, L501.9985, L500.4050, L100.0100, L300.3900 ####[facility] [address] [place], [address] Carbon dioxide measurementOr dered By: Savage Gilliam on 12-23-2023 CO2 [Moles/Vol] 29.0 mmol/L 21.0-32.0 [facility] Chloride measurementOrdered By: Savage Gilliam on 12-23-2023 Chloride [Moles/Vol] 97 mmol/L Low 98-107 [facility] Comprehensive Metabolic Prof ilon 12-23-2023 Albumin [Mass/Vol] 3.5 g/dL Normal 3.2-5.0 [facility] Comment on above: Order Comment: Order Date: 12/12/23Order Info: [id number] - CMPOrder Info: [id number] - LIPID Performed By: #### L 500.4100, L501.9985, L500.4050, L100.0100, L300.3900 ####[facility] [address] [place], [address] Albumin/Globulin [Mass ratio] 1.1 {ratio} Normal 0.9-2.4 [facility] Comment on above: Order Comment: Order Date: 12/12/23Order Info: [id number] - CMPOrder Info: [id number] - LIPID Performed By: #### L 500.4100, L501.9985, L500.4050, L100.0100, L300.3900 ####[facility] [address] [place], [address] ALK P 88 U/L Normal 45-117 [facility] Comment on above: Order Comment: Order Date: 12/12/23Order Info: [id number] - CMPOrder Info: [id number] - LIPID Performed By: #### L 500.4100, L501.9985, L500.4050, L100.0100, L300.3900 ####[facility] [address] [place], [address] ALT [Catalytic activity/Vol] 22 U/L Normal 13-56 [facility] Comment on above: Order Comment: Order Date: 12/12/23Order Info: [id number] - CMPOrder Info: [id number] - LIPID Performed By: #### L 500.4100, L501.9985, L500.4050, L100.0100, L300.3900 ####[facility] [address] [place], [address] AST [Catalytic activity/Vol] 20 U/L Normal 15-37 [facility] Comment on above: Order Comment: Order Date: 12/12/23Order Info: [id number] - CMPOrder Info: [id number] - LIPID Performed By: #### L 500.4100, L501.9985, L500.4050, L100.0100, L300.3900 ####[facility] [address] [place], [address] Bilirubin [Mass/Vol] 0.40 mg/dL Normal 0.20-1.00 [facility] Comment on above: Order Comment: Order Date: 12/12/23Order Info: [id number] - CMPOrder Info: [id number] - LIPID Result Comment: For patients on eltrombopag therapy, use of Dimension [place] TBIL is not recommended. Performed By: #### L 500.4100, L501.9985, L500.4050, L100.0100, L300.3900 ####[facility] [address] [place], [address] BUN/CRE 17.2 RATIO Normal 10-20 [facility] Comment on above: Order Comment: Order Date: 12/12/23Order Info: [id number] - CMPOrder Info: [id number] - LIPID Performed By: #### L 500.4100, L501.9985, L500.4050, L100.0100, L300.3900 ####[facility] [address] [place], [address] CA,Total 8.8 mg/dL Normal 8.5-10.1 [facility] Comment on above: Order Comment: Order Date: 12/12/23Order Info: [id number] - CMPOrder Info: [id number] - LIPID Performed By: #### L 500.4100, L501.9985, L500.4050, L100.0100, L300.3900 ####[facility] [address] [place], [address] Chloride [Moles/Vol] 97 mmol/L Low 98-107 [facility] Comment on above: Order Comment: Order Date: 12/12/23Order Info: [id number] - CMPOrder Info: [id number] - LIPID Performed By: #### L 500.4100, L501.9985, L500.4050, L100.0100, L300.3900 ####[facility] [address] [place], [address] CO2 [Moles/Vol] 29.0 mmol/L Normal 21.0-32.0 [facility] Comment on above: Order Comment: Order Date: 12/12/23Order Info: [id number] - CMPOrder Info: [id number] - LIPID Performed By: #### L 500.4100, L501.9985, L500.4050, L100.0100, L300.3900 ####[facility] [address] [place], [address] Creatinine [Mass/Vol] 0.58 mg/dL Normal 0.55-1.02 [facility] Comment on above: Order Comment: Order Date: 12/12/23Order Info: [id number] - CMPOrder Info: [id number] - LIPID Result Comment: The validity of the calculated GFR GFRAA in patients over70 years has not been determined. Clinical correlation isessential. Performed By: #### L 500.4100, L501.9985, L500.4050, L100.0100, L300.3900 ####[facility] [address] [place], [address] EST GFR - AA 130 mL/min Normal >60 [facility] Comment on above: Order Comment: Order Date: 12/12/23Order Info: [id number]- - CMPOrder Info: [id number] - LIPID Result Comment: Afri can [place] GFR Calc Performed By: #### L 500.4100, L501.9985, L500.4050, L100.0100, L300.3900 ####[facility] [address] [place], [address] GAP 6 Normal 5-15 [facility] Comment on above: Order Comment: Order Date: 12/12/23Order Info: [id number] - CMPOrder Info: [id number] - LIPID Performed By: #### L 500.4100, L501.9985, L500.4050, L100.0100, L300.3900 ####[facility] [address] [place], [address] GFR/1.73 sq M.predicted among non-blacks MDRD (S/P/Bld) [Vol rate/Area] 107 mL/min/{1.73_m2} Normal >60 [facility] Comment on above: Order Comment: Order Date: 12/12/23Order Info: [id number] - CMPOrder Info: [id number] - LIPID Result Comment: Non- GFR Calc Performed By: #### L 500.4100, L501.9985, L500.4050, L100.0100, L300.3900 ####[facility] [address] [place], [address] Globulin (S) [Mass/Vol] 3.1 g/dL Normal 2.2-4.2 [facility] Comment on above: Order Comment: Order Date: 12/12/23Order Info: 07 - CMPOrder Info: [id number] - LIPID Performed By: #### L 500.4100, L501.9985, L500.4050, L100.0100, L300.3900 ####[facility] [address] [place], [address] Glucose [Mass/Vol] 132 mg/dL High 74-106 [facility] Comment on above: Order Comment: Order Date: 12/12/23Order Info: [id number] - CMPOrder Info: [id number] - LIPID Result Comment: Fast ing Glucose result greater than or equal to 126 mg/dLsuggests DIABETES MELLITUS per A.D.A. criteria. Performed By: #### L 500.4100, L501.9985, L500.4050, L100.0100, L300.3900 ####[facility] [address] [place], [address] Potassium [Moles/Vol] 3.6 mmol/L Normal 3.5-5.1 [facility] Comment on above: Order Comment: Order Date: 12/12/23Order Info: [id number] - CMPOrder Info: [id number] - LIPID Performed By: #### L 500.4100, L501.9985, L500.4050, L100.0100, L300.3900 ####[facility] [address] [place], [address] Sodium [Moles/Vol] 132 mmol/L Low 136-145 [facility] Comment on above: Order Comment: Order Date: 12/12/23Order Info: 07 - CMPOrder Info: [id number] - LIPID Performed By: #### L 500.4100, L501.9985, L500.4050, L100.0100, L300.3900 ####[facility] [address] [place], [place], [address] T PROT 6.6 g/dL Normal 6.4-8.2 [facility] Comment on above: Order Comment: Order Date: 12/12/23Order Info: [id number] - CMPOrder Info: [id number] - LIPID Performed By: #### L 500.4100, L501.9985, L500.4050, L100.0100, L300.3900 ####[facility] [address] [place], [address] Urea nitrogen [Mass/Vol] 10 mg/dL Normal 7-18 [facility] Comment on above: Order Comment: Order Date: 12/12/23Order Info: [id number] - CMPOrder Info: [id number] - LIPID Performed By: #### L 500.4100, L501.9985, L500.4050, L100.0100, L300.3900 ####[facility] [address] [place], [address] Eosinophil percentageOrdered By: Savage Gilliam on 12-23-2023 Eosinophils/100 WBC (Bld) 0.0 % 0-5 [facility] Erythrocyte distribution wid th ratioOrdered By: Savage Gilliam on 12-23-2023 Erythrocyte distribution width (RBC) [Ratio] 12.5 % 11.6-14.6 [facility] Erythrocyte distribution wid th standard deviationOrdered By: Savage Gilliam on 12-23-2023 Erythrocyte distribution width (RBC) [Entitic vol] 42.3 fL 35.1-43.9 [facility] Estimated glomerular filtrat ion rate (GFR) AmericanOrdered By: Savage Gilliam on 12-23-2023 Estimated GFR (MDRD) Amer 130 mL/min >60 [facility] Comment on above: GFR Calc Glomerular filtration rate ( GFR) estimationOrdered By: Savage Gilliam on 12-23-2023 Estimated GFR (MDRD) Non-Af Amer 107 mL/min >60 [facility] Comment on above: Non- GFR Calc Glucose measurementOrdered B y: Savage Maeke on 12-23-2023 Glucose [Mass/Vol] 132 mg/dL High 74-106 [facility] Comment on above: Fasting Glucose resu lt greater than or equal to 126 mg/dL suggests DIABETES MELLITUS per A.D.A. criteria. Hematocrit Auto (Bld) [Volum e fraction]Ordered By: Savage Marina on 12-23-2023 Hematocrit (Bld) [Volume fraction] 42.6 % 37-47 [facility] Hemoglobin A1con 12-23-2023 HbA1c (Bld) [Mass fraction] 6.0 % High 3.8-5.6 [facility] Comment on above: Order Comment: Order Date: 12/12/23Order Info: [id number] - A1C Result Comment: Norm al < 5.7 % Prediabetic 5.7 - 6.4 % Diabetic >or= 6.5 % Please note range changes. Performed By: #### L 500.4100, L501.9985, L500.4050, L100.0100, L300.3900 ####[facility] [address] [place], [address] Hemoglobin A1c percentageOrd ered By: Savage Maeke on 12-23-2023 HbA1c (Bld) [Mass fraction] 6.0 % High 3.8-5.6 [facility] Comment on above: Normal < 5.7 % Predi abetic 5.7 - 6.4 % Diabetic >or= 6.5 % Please note range changes. Hemoglobin measurementOrdere d By: Savage Maeke on 12-23-2023 Hemoglobin (Bld) [Mass/Vol] 14.2 g/dL 12.0-15.0 [facility] High density lipoprotein (HD L) measurementOrdered By: Savage Gilliam on 12-23-2023 Cholesterol in HDL [Mass/Vol] 62 mg/dL >40 [facility] Comment on above: The drugs N-Acetylcy steine and Metamizole may falsely depress this assay. Reference Range HDL <40 mg/dL Low HDL Cholesterol HDL >or= 60 mg/dL High HDL Cholesterol Immature granulocytes/100 WB C Auto (Bld)Ordered By: Savage Gilliam on 12-23-2023 Immature granulocytes/100 WBC (Bld) 0.600 % 0.0-0.9 [facility] Comment on above: IG% - Immature Granu locytes (promyelocytes, myelocytes and metamyelocytes) > 1% indicates that a LEFT SHIFT is Present. International normalized rat io (INR) calculationOrdered By: Savage Marina on 12-23-2023 INR Coag (Bld) [Relative time] 2.5 {INR} [facility] - Chemistry and C hemistry - challengeOrdered By: Savage Gilliam on 12-23-2023 AST [Catalytic activity/Vol] 20 U/L [facility] Lipid Profileon 12-23-2023 Cholesterol [Mass/Vol] 121 mg/dL Normal 200 [facility] Comment on above: Order Comment: Order Date: 12/12/23Order Info: [id number] - CMPOrder Info: [id number] - LIPID Result Comment: <200 mg/dL Desirable 200-240 mg/dL Borderline >240 mg/dL High Risk Performed By: #### L 500.4100, L501.9985, L500.4050, L100.0100, L300.3900 ####[facility] [address] [place], [address] Cholesterol in HDL [Mass/Vol] 62 mg/dL Normal [facility] Comment on above: Order Comment: Order Date: 12/12/23Order Info: [id number] - CMPOrder Info: [id number] - LIPID Result Comment: The drugs N-Acetylcysteine and Metamizole may falselydepress this assay. Reference Range HDL <40 mg/dL Low HDL Cholesterol HDL >or= 60 mg/dL High HDL Cholesterol Performed By: #### L 500.4100, L501.9985, L500.4050, L100.0100, L300.3900 ####[facility] [address] [place], [address] Cholesterol in LDL [Mass/Vol] 39 mg/dL Normal 0-130 [facility] Comment on above: Order Comment: Order Date: 12/12/23Order Info: [id number] - CMPOrder Info: [id number] - LIPID Performed By: #### L 500.4100, L501.9985, L500.4050, L100.0100, L300.3900 ####[facility] [address] [place], [address] Cholesterol in VLDL [Mass/Vol] 20 mg/dL Normal 5-40 [facility] Comment on above: Order Comment: Order Date: 12/12/23Order Info: [id number] - CMPOrder Info: [id number] - LIPID Performed By: #### L 500.4100, L501.9985, L500.4050, L100.0100, L300.3900 ####[facility] [address] [place], [address] Triglyceride [Mass/Vol] 101 mg/dL Normal [facility] Comment on above: Order Comment: Order Date: 12/12/23Order Info: [id number] - CMPOrder Info: [id number] - LIPID Result Comment: The drugs N-Acetylcysteine and Metamizole may falselydepress this assay.Serum Triglycerides Reference Interval Normal <150 mg/dL Borderline high 150 - 199 mg/dL High 200 - 499 mg/dL Very High > or = 500 mg/dL Performed By: #### L 500.4100, L501.9985, L500.4050, L100.0100, L300.3900 ####[facility] [address] [place], [place], [id number] Low density lipoprotein (LDL ) cholesterol measurementOrdered By: Savage Gilliam on 12-23-2023 Cholesterol in LDL [Mass/Vol] 39 mg/dL 0-130 [facility] Lymphocytes Auto (Unsp spec) [#/Vol]Ordered By: Savage Gilliam on 12-23-2023 Lymphocytes (Bld) [#/Vol] 1.62 10*3/uL 0.83-4.51 [facility] Lymphocytes/100 WBC Auto (Un sp spec)Ordered By: Savage Gilliam on 12-23-2023 Lymphocytes/100 WBC (Bld) 23.2 % 19-41 [facility] MCV (mean corpuscular volume ) determinationOrdered By: Savage Marina on 12-23-2023 MCV (RBC) [Entitic vol] 92.6 fL 81-99 [facility] Mean corpuscular hemoglobin (MCH) determinationOrdered By: Chantelltamara Maeke on 12-23-2023 MCH (RBC) [Entitic mass] 30.9 pg 27.0-32.0 [facility] Mean corpuscular hemoglobin concentration (MCHC) determinationOrdered By: Chantelltamara Maeke on 12-23-2023 MCHC (RBC) [Mass/Vol] 33.3 g/dL 32-36 [facility] Mean platelet volume determi nationOrdered By: Chantelltamara Maeke on 12-23-2023 Platelet mean volume (Bld) [Entitic vol] 10.1 fL 6.2-12.0 [facility] Monocyte percentageOrdered B y: Chantelltamara Marina on 12-23-2023 Monocytes/100 WBC (Bld) 8.3 % 0-10 [facility] Neutrophil percentageOrdered By: Chantelltamara Maeke on 12-23-2023 Neutrophils/100 WBC (Bld) 66.8 % 47-70 [facility] Nucleated red blood cell per centageOrdered By: Chantelltamara Maeke on 12-23-2023 Nucleated RBC/100 WBC (Bld) [Ratio] 0 % 0-5 [facility] Platelet countOrdered By: Rosales Gilliam on 12-23-2023 Platelets (Bld) [#/Vol] 245 10*3/uL 150-450 [facility] Potassium measurementOrdered By: Savage Gilliam on 12-23-2023 Potassium [Moles/Vol] 3.6 mmol/L 3.5-5.1 [facility] Prothrombin Time w/INRon INR Coag (PPP) [Relative time] 2.5 {INR} Normal [facility] Comment on above: Order Comment: Order Date: 12/12/23Order Info: [id number] - PT Performed By: #### L 500.4100, L501.9985, L500.4050, L100.0100, L300.3900 ####[facility] [address] [place], [address] PT Coag (PPP) [Time] 26.9 s High 11.7-14.9 [facility] Comment on above: Order Comment: Order Date: 12/12/23Order Info: [id number] - PT Performed By: #### L 500.4100, L501.9985, L500.4050, L100.0100, L300.3900 ####[facility] [address] [place], [address] Prothrombin timeOrdered By: Savage Gilliam on 12-23-2023 PT Coag (PPP) [Time] 26.9 s High 11.7-14.9 [facility] RBC Auto (Bld) [#/Vol]Ordere d By: Savage Gilliam on 12-23-2023 RBC (Bld) [#/Vol] 4.60 10*6/uL 4.2-5.4 [facility] Serum anion gap measurementO rdered By: Savage Gilliam on 12-23-2023 Anion gap [Moles/Vol] 6 mmol/L 5-15 [facility] Serum globulin measurementOr dered By: Savage Gilliam on 12-23-2023 Globulin (S) [Mass/Vol] 3.1 g/dL 2.2-4.2 [facility] Serum or plasma alanine huang otransferase (ALT) measurementOrdered By: Savage Gilliam on 12-23-2023 ALT [Catalytic activity/Vol] 22 U/L 13-56 [facility] Serum or plasma albumin tres urement (mass/volume)Ordered By: Savage Gilliam on 12-23-2023 Albumin [Mass/Vol] 3.5 g/dL 3.2-5.0 [facility] Serum or plasma alkaline marilynn sphatase measurementOrdered By: Savage Gilliam on 12-23-2023 ALP [Catalytic activity/Vol] 88 U/L 45-117 [facility] Serum or plasma calcium tres urement (mass/volume)Ordered By: Savage Gilliam on 12-23-2023 Calcium [Mass/Vol] 8.8 mg/dL 8.5-10.1 [facility] Serum or plasma cholesterol measurement (mass/volume)Ordered By: Savage Gilliam on 12-23-2023 Cholesterol [Mass/Vol] 121 mg/dL <200 [facility] Comment on above: <200 mg/dL Desirable 200-240 mg/dL Borderline >240 mg/dL High Risk Serum or plasma creatinine m easurement (mass/volume)Ordered By: Savage Gilliam on 12-23-2023 Creatinine [Mass/Vol] 0.58 mg/dL 0.55-1.02 [facility] Comment on above: The validity of the calculated GFR & GFRAA in patients over 70 years has not been determined. Clinical correlation is essential. Serum or plasma urea nitroge n measurement (mass/volume)Ordered By: Savage Gilliam on 12-23-2023 Urea nitrogen [Mass/Vol] 10 mg/dL 7-18 [facility] Sodium levelOrdered By: Chantell Gilliam on 12-23-2023 Sodium [Moles/Vol] 132 mmol/L Low 136-145 [facility] Total proteinOrdered By: Judy Gilliam on 12-23-2023 Protein [Mass/Vol] 6.6 g/dL 6.4-8.2 [facility] Triglycerides measurementOrd ered By: Savage Gilliam on 12-23-2023 Triglyceride [Mass/Vol] 101 mg/dL <199 [facility] Comment on above: The drugs N-Acetylcy steine and Metamizole may falsely depress this assay.Serum Triglycerides Reference Interval Normal <150 mg/dL Borderline high 150 - 199 mg/dL High 200 - 499 mg/dL Very High > or = 500 mg/dL Very low density lipoprotein (VLDL) cholesterol measurementOrdered By: Savage Gilliam on 12-23-2023 VLDL Cholesterol 20 mg/dL 5-40 [facility] White blood cell (WBC) count Ordered By: Savage Gilliam on 12-23-2023 WBC (Bld) [#/Vol] 7.0 10*3/uL 4.4-11.0 [facility] 12 Lead EKGon 12-06-2023 12 Lead EKG Normal [facility] Basic Metabolic Profile (BMP )on 12-06-2023 BUN/CRE 14.2 RATIO Normal 10-20 [facility] Comment on above: Performed By: #### L 100.0100, L300.3900, L500.2500 ####[facility] [id number] [place], [address] CA,Total 8.5 mg/dL Normal 8.5-10.1 [facility] Comment on above: Performed By: #### L 100.0100, L300.3900, L500.2500 ####[facility] [id number] [place], [address] Chloride [Moles/Vol] 95 mmol/L Low 98-107 [facility] Comment on above: Performed By: #### L 100.0100, L300.3900, L500.2500 ####[facility] [id number] [place], [address] CO2 [Moles/Vol] 30.0 mmol/L Normal 21.0-32.0 [facility] Comment on above: Performed By: #### L 100.0100, L300.3900, L500.2500 ####[facility] [id number] [place], [address] Creatinine [Mass/Vol] 0.64 mg/dL Normal 0.55-1.02 [facility] Comment on above: Result Comment: The validity of the calculated GFR GFRAA in patients over70 years has not been determined. Clinical correlation isessential. Performed By: #### L 100.0100, L300.3900, L500.2500 ####[facility] [address] [place], [address] ECRCL 53.67 ml/min Normal [facility] Comment on above: Performed By: #### L 100.0100, L300.3900, L500.2500 ####[facility] [address] [place], [address] EST GFR - AA 117 mL/min Normal >60 [facility] Comment on above: Result Comment: Afri can [place]gu[place] GFR Calc Performed By: #### L 100.0100, L300.3900, L500.2500 ####[facility] [address] [place], [address] GAP 7 Normal 5-15 [facility] Comment on above: Performed By: #### L 100.0100, L300.3900, L500.2500 ####[facility] [address] [place], [address] GFR/1.73 sq M.predicted among non-blacks MDRD (S/P/Bld) [Vol rate/Area] 97 mL/min/{1.73_m2} Normal >60 [facility] Comment on above: Result Comment: Non- GFR Calc Performed By: #### L 100.0100, L300.3900, L500.2500 ####[facility] [address] [place], [address] Glucose [Mass/Vol] 142 mg/dL High 74-106 [facility] Comment on above: Result Comment: Fast ing Glucose result greater than or equal to 126 mg/dLsuggests DIABETES MELLITUS per A.D.A. criteria. Performed By: #### L 100.0100, L300.3900, L500.2500 ####[facility] [address] [place], [address] Potassium [Moles/Vol] 3.2 mmol/L Low 3.5-5.1 [facility] Comment on above: Performed By: #### L 100.0100, L300.3900, L500.2500 ####[facility] [address] [place], [address] Sodium [Moles/Vol] 132 mmol/L Low 136-145 [facility] Comment on above: Performed By: #### L 100.0100, L300.3900, L500.2500 ####[facility] [address] [place], [address] Urea nitrogen [Mass/Vol] 9 mg/dL Normal 7-18 [facility] Comment on above: Performed By: #### L 100.0100, L300.3900, L500.2500 ####[facility] [address] [place], [address] CBC W/Diff, Automatedon 11-08 Absolute Lymph 1.71 X10 3/uL Normal 0.83-4.51 [facility] Comment on above: Performed By: #### L 100.0100, L300.3900, L500.2500 ####[facility] [address] [place], [address] Absolute Neut 3.5 X10 3/uL Normal 2.0-7.7 [facility] Comment on above: Performed By: #### L 100.0100, L300.3900, L500.2500 ####[facility] [address] [place], [address] Basophils/100 WBC (Bld) 1.4 % High 0-1 [facility] Comment on above: Performed By: #### L 100.0100, L300.3900, L500.2500 ####[facility] [address] [place], [address] Eosinophils/100 WBC (Bld) 0.2 % Normal 0-5 [facility] Comment on above: Performed By: #### L 100.0100, L300.3900, L500.2500 ####[facility] [address] [place], [address] Erythrocyte distribution width (RBC) [Ratio] 12.6 % Normal 11.6-14.6 [facility] Comment on above: Performed By: #### L 100.0100, L300.3900, L500.2500 ####[facility] [address] [place], [address] Hematocrit (Bld) [Volume fraction] 40.4 % Normal 37-47 [facility] Comment on above: Performed By: #### L 100.0100, L300.3900, L500.2500 ####[facility] [address] [place], [address] Hemoglobin (Bld) [Mass/Vol] 14.1 g/dL Normal 12.0-15.0 [facility] Comment on above: Performed By: #### L 100.0100, L300.3900, L500.2500 ####[facility] [address] [place], [address] IG% 0.500 Normal 0.0-0.9 [facility] Comment on above: Result Comment: IG% - Immature Granulocytes (promyelocytes, myelocytes andmetamyelocytes) > 1% indicates that a LEFT SHIFT is Present. Performed By: #### L 100.0100, L300.3900, L500.2500 ####[facility] [address] [place], [address] Lymphocytes/100 WBC (Bld) 29.0 % Normal 19-41 [facility] Comment on above: Performed By: #### L 100.0100, L300.3900, L500.2500 ####[facility] [address] [place], [address] MCH (RBC) [Entitic mass] 31.7 pg Normal 27.0-32.0 [facility] Comment on above: Performed By: #### L 100.0100, L300.3900, L500.2500 ####[facility] [address] [place], [address] MCHC (RBC) [Mass/Vol] 34.9 g/dL Normal 32-36 [facility] Comment on above: Performed By: #### L 100.0100, L300.3900, L500.2500 ####[facility] [address] [place], [address] MCV (RBC) [Entitic vol] 90.8 fL Normal 81-99 [facility] Comment on above: Performed By: #### L 100.0100, L300.3900, L500.2500 ####[facility] [address] [place], [address] Monocytes/100 WBC (Bld) 9.7 % Normal 0-10 [facility] Comment on above: Performed By: #### L 100.0100, L300.3900, L500.2500 ####[facility] [address] [place], [address] Neutrophils/100 WBC (Bld) 59.2 % Normal 47-70 [facility] Comment on above: Performed By: #### L 100.0100, L300.3900, L500.2500 ####[facility] [address] [place], [address] Nucleated RBC (Bld) [#/Vol] 0 10*3/uL Normal 0-5 [facility] Comment on above: Performed By: #### L 100.0100, L300.3900, L500.2500 ####[facility] [address] [place], [address] Platelet mean volume (Bld) [Entitic vol] 10.0 fL Normal 6.2-12.0 [facility] Comment on above: Performed By: #### L 100.0100, L300.3900, L500.2500 ####[facility] [address] [place], [address] Platelets (Bld) [#/Vol] 223 10*3/uL Normal 150-450 [facility] Comment on above: Performed By: #### L 100.0100, L300.3900, L500.2500 ####[facility] [address] [place], [address] RBC (Bld) [#/Vol] 4.45 10*6/uL Normal 4.2-5.4 [facility] Comment on above: Performed By: #### L 100.0100, L300.3900, L500.2500 ####[facility] [address] [place], [address] RDW SD 41.8 fl Normal 35.1-43.9 [facility] Comment on above: Performed By: #### L 100.0100, L300.3900, L500.2500 ####[facility] [address] [place], [address] WBC (Bld) [#/Vol] 5.9 10*3/uL Normal 4.4-11.0 [facility] Comment on above: Performed By: #### L 100.0100, L300.3900, L500.2500 ####[facility] [address] [place], [address] Chest PA and Lateralon 12-05 Chest PA and Lateral Normal [facility] Emergency Department Summary on 12-06-2023 Emergency Department Summary Normal [facility] M100.678on 12-06-2023 M100.678 Pending SARS-CoV-2 (COVID 19) Negative INFLUENZA A Negative INFLUENZA B Negative RSV PCR Negative Normal [facility] Comment on above: Performed By: #### L 400.0001, M100.678 ####[facility] [address] [place], [address] Prothrombin Time w/INRon INR Coag (PPP) [Relative time] 1.6 {INR} Normal [facility] Comment on above: Performed By: #### L 100.0100, L300.3900, L500.2500 ####[facility] [address] [place], [address] PT Coag (PPP) [Time] 18.7 s High 11.7-14.9 [facility] Comment on above: Performed By: #### L 100.0100, L300.3900, L500.2500 ####[facility] [address] [place], [address] Urinalysis, Completeon 12-05 EPI,SQUAMOUS 0-5 SEEN Normal 5-10 [facility] Comment on above: Order Comment: COLLE CTOR TO SPECIFY Performed By: #### L 400.0001, M100.678 ####[facility] [address] [place], [address] BACTERIA 0 SEEN Normal None Seen [facility] Comment on above: Order Comment: COLLE CTOR TO SPECIFY Performed By: #### L 400.0001, M100.678 ####[facility] [address] [place], [address] Mucus Ql (Urine sed) 0 SEEN Normal [facility] Comment on above: Order Comment: BETS CTOR TO SPECIFY Performed By: #### L 400.0001, M100.678 ####[facility] [address] [place], [address] RBC 0 SEEN Normal 0-5 [facility] Comment on above: Order Comment: COLLE CTOR TO SPECIFY Performed By: #### L 400.0001, M100.678 ####[facility] [address] [place], [address] WBC 0 SEEN Normal 0-5 [facility] Comment on above: Order Comment: COLLE CTOR TO SPECIFY Performed By: #### L 400.0001, M100.678 ####[facility] [address] [place], [address] .Auto Diffon 04-14-2023 Basophil, Absolute 0.1 10 3/mcL Normal 0.0-0.3 [facility] ([place]) Comment on above: Performed By: #### G FR, ANEU, BMP, CBC, PRO, ADIFF #### [address] [address] Basophils/100 WBC (Bld) 0.9 % Normal 0.0-2.5 [facility] ([place]) Comment on above: Performed By: #### G FR, ANEU, BMP, CBC, PRO, ADIFF #### [address] [address] Eosinophil, Absolute 0.1 10 3/mcL Normal 0.0-0.7 [facility] ([place]) Comment on above: Performed By: #### G FR, ANEU, BMP, CBC, PRO, ADIFF #### [address] [address] Eosinophils/100 WBC (Bld) 1.9 % Normal 0.0-6.0 [facility] ([place] Comment on above: Performed By: #### G FR, ANEU, BMP, CBC, PRO, ADIFF #### [address] [address] Lymphocyte, Absolute 1.3 10 3/mcL Normal 0.9-4.3 [facility] ([place]) Comment on above: Performed By: #### G FR, ANEU, BMP, CBC, PRO, ADIFF #### [address] [address] Lymphocytes/100 WBC (Bld) 16.0 % Low 20.0-40.0 [facility] ([place] Comment on above: Performed By: #### G FR, ANEU, BMP, CBC, PRO, ADIFF #### [address] [address] Monocyte, Absolute 0.4 10 3/mcL Normal 0.1-1.4 [facility] ([place]) Comment on above: Performed By: #### G FR, ANEU, BMP, CBC, PRO, ADIFF #### [address] [address] Monocytes/100 WBC (Bld) 5.6 % Normal 2.0-13.0 A [facility] ([place]) Comment on above: Performed By: #### G FR, ANEU, BMP, CBC, PRO, ADIFF #### [address] [address] Neutrophils/100 WBC (Bld) 75.6 % High 50.0-75.0 [facility] ([place] Comment on above: Performed By: #### G FR, ANEU, BMP, CBC, PRO, ADIFF #### [address] [address] .GFRon 04-14-2023 GFR Non- >60 Normal [facility] ([place] Comment on above: Result Comment: GFR Population [...] FR, ANEU, BMP, CBC, PRO, ADIFF #### [address] [address] GFR >60 Normal [facility] ([place]) Comment on above: Result Comment: GFR Population [...] FR, ANEU, BMP, CBC, PRO, ADIFF #### [address] [address] .NEUABSon 04-14-2023 Neutrophil, Absolute 6.0 10 3/mcL Normal 2.3-8.1 [facility] ([place]) Comment on above: Performed By: #### G FR, ANEU, BMP, CBC, PRO, ADIFF #### [address] [address] BMPon 04-14-2023 BUN/Creatinine Ratio 17.6 ratio Normal 10.0-22.0 [facility] ([place]) Comment on above: Performed By: #### G FR, ANEU, BMP, CBC, PRO, ADIFF #### [place] [address] Calcium [Mass/Vol] 8.9 mg/dL Normal 8.7-10.4 Pending sale to [facility] ([place]) Comment on above: Performed By: #### G FR, ANEU, BMP, CBC, PRO, ADIFF #### [place] [address] Chloride [Moles/Vol] 103 mmol/L Normal 98-110 [facility] ([place]) Comment on above: Performed By: #### G FR, ANEU, BMP, CBC, PRO, ADIFF #### [place] [address] CO2 [Moles/Vol] 30 mmol/L Normal 22-32 [facility] ([place] Comment on above: Performed By: #### G FR, ANEU, BMP, CBC, PRO, ADIFF #### [place] [address] Creatinine [Mass/Vol] 0.68 mg/dL Normal 0.50-1.20 [facility] ([place]) Comment on above: Performed By: #### G FR, ANEU, BMP, CBC, PRO, ADIFF #### [place] [address] Electrolyte Balance 5.0 mEq/L Normal 4.0-15.0 [facility] ([place]) Comment on above: Performed By: #### G FR, ANEU, BMP, CBC, PRO, ADIFF #### [place] [address] Glucose [Mass/Vol] 161 mg/dL High 82-115 Pending sale to [facility] ([place]) Comment on above: Performed By: #### G FR, ANEU, BMP, CBC, PRO, ADIFF #### [place] [address] Potassium [Moles/Vol] 4.1 mmol/L Normal 3.5-5.0 [facility] ([place]) Comment on above: Performed By: #### G FR, ANEU, BMP, CBC, PRO, ADIFF #### [place] [id number] Sodium [Moles/Vol] 138 mmol/L Normal 136-145 Pending sale to [facility] ([place]) Comment on above: Performed By: #### G FR, ANEU, BMP, CBC, PRO, ADIFF #### [place] [address] Urea nitrogen [Mass/Vol] 12.0 mg/dL Normal 8.0-22.0 [facility] ([place] Comment on above: Performed By: #### G FR, ANEU, BMP, CBC, PRO, ADIFF #### [place] [address] CBCon 04-14-2023 Erythrocyte distribution width (RBC) [Ratio] 13.0 % Normal 11.5-15.5 [facility] ([place] Comment on above: Performed By: #### G FR, ANEU, BMP, CBC, PRO, ADIFF #### [place] [address] Hematocrit (Bld) [Volume fraction] 42.3 % Normal 34.0-46.0 [facility] ([place] Comment on above: Performed By: #### G FR, ANEU, BMP, CBC, PRO, ADIFF #### [place] [address] Hgb 14.4 G/dL Normal 12.0-16.0 [facility] ([place] Comment on above: Performed By: #### G FR, ANEU, BMP, CBC, PRO, ADIFF #### [place] [address] MCH (RBC) [Entitic mass] 32.1 pg Normal 27.0-33.0 [facility] ([place] Comment on above: Performed By: #### G FR, ANEU, BMP, CBC, PRO, ADIFF #### [place] [address] MCHC 34.1 G/dL Normal 32.0-36.0 [facility] ([place] Comment on above: Performed By: #### G FR, ANEU, BMP, CBC, PRO, ADIFF #### [place] [address] MCV (RBC) [Entitic vol] 94.3 fL Normal 80.0-99.0 A [facility] ([place]) Comment on above: Performed By: #### G FR, ANEU, BMP, CBC, PRO, ADIFF #### [place] [address] Platelet 211 10 3/mcL Normal 150-450 [facility] ([place] Comment on above: Performed By: #### G FR, ANEU, BMP, CBC, PRO, ADIFF #### [place] [address] Platelet mean volume (Bld) [Entitic vol] 8.5 fL Normal 6.6-10.5 [facility] ([place] Comment on above: Performed By: #### G FR, ANEU, BMP, CBC, PRO, ADIFF #### [place] [address] RBC 4.48 10 6/mcL Normal 4.10-5.30 [facility] ([place] Comment on above: Performed By: #### G FR, ANEU, BMP, CBC, PRO, ADIFF #### [place] [address] WBC 7.9 10 3/mcL Normal 4.5-10.8 [facility] ([place] Comment on above: Performed By: #### G FR, ANEU, BMP, CBC, PRO, ADIFF #### [place] [address] LABORATORYOrdered By: SYSTEM SYSTEM on 04-14-2023 Basophils (Bld) [#/Vol] 0.1 103/mcL Normal 0.0 - 0.3 10^3/mcL AH Workflow SS Basophils/100 WBC (Bld) 0.9 % Normal 0.0 - 2.5 % AH Workflow SS Calcium [Mass/Vol] 8.9 mg/dL Normal [...] 0.1 103/mcL Normal 0.0 - 0.7 10^3/mcL AH Workflow SS Eosinophils/100 WBC (Bld) 1.9 % Normal 0.0 - 6.0 % Workflow SS Erythrocyte distribution width (RBC) [Ratio] 13.0 % Normal 11.5 - 15.5 % AH Workflow SS GFR/1.73 sq M.predicted among blacks MDRD (S/P/Bld) [Vol rate/Area] ml/min/1.73sqm Invalid Interpretation Code Miracle [facility] Comment on above: Interpretive Data: GFR Population [...] 14.4 G/dL Normal 12.0 - 16.0 G/dL Workflow SS Lymphocytes (Bld) [#/Vol] 1.3 103/mcL Normal 0.9 - 4.3 10^3/mcL Workflow SS Lymphocytes/100 WBC (Bld) 16.0 % Low 20.0 - 40.0 % AH Workflow SS MCH (RBC) [Entitic mass] 32.1 pg Normal 27.0 - 33.0 pg AH Workflow SS MCHC 34.1 G/dL Normal 32.0 - 36.0 G/dL AH Workflow SS MCV (RBC) [Entitic vol] 94.3 fL Normal 80.0 - 99.0 fL AH Workflow SS Monocytes (Bld) [#/Vol] 0.4 103/mcL Normal 0.1 - 1.4 10^3/mcL Workflow SS Monocytes/100 WBC (Bld) 5.6 % Normal 2.0 - 13.0 % AH Workflow SS Neutrophils (Bld) [#/Vol] 6.0 103/mcL Normal 2.3 - 8.1 10^3/mcL AH Workflow SS Neutrophils/100 WBC (Bld) 75.6 % High 50.0 - 75.0 % Workflow SS Platelet mean volume (Bld) [Entitic vol] 8.5 fL Normal 6.6 - 10.5 fL AH Workflow SS Platelets (Bld) [#/Vol] 211 103/mcL Normal 150 - 450 10^3/mcL AH Workflow SS Potassium [Moles/Vol] 4.1 mmol/L Normal 3.5 - 5.0 mEq/L AH ADM SS RBC (Bld) [#/Vol] 4.48 106/mcL Normal 4.10 - 5.3 0 10^6/mcL Workflow SS Sodium [Moles/Vol] 138 mmol/L Normal 136 - 145 mEq/L AH ADM SS Urea nitrogen [Mass/Vol] 12.0 mg/dL Normal 8.0 - 22.0 mg/dL AH ADM SS Urea nitrogen/Creatinine [Mass ratio] 17.6 ratio Normal 10.0 - 22.0 ratio AH ADM SS WBC (Bld) [#/Vol] 7.9 103/mcL [...] Comment on above: Interpretive Data: Higinio suarez [employer] [employer] (CHEST, 1991, 102:312S-25S) recommended therapeutic range for oral anticoagulant therapy is: LOW RISK: Prophylaxis of venous thrombosis INR: 2.0-3.0 Treatment of pulmonary embolism 2.0-3.0 Prevention of systemic embolism 2.0-3.0 HIGH RISK: Mechanical prosthetic valves 2.5-3.5 PROon 04-14-2023 INR Coag (PPP) [Relative time] 1.9 {INR} Normal [facility] ([place]) Comment on above: Result Comment: [employer] [place] [employer] (CHEST, 1991, 102:312S-25S) recommended therapeutic range for oral anticoagulant therapy is: LOW RISK: Prophylaxis of venous thrombosis INR: 2.0-3.0 Treatment of pulmonary embolism 2.0-3.0 Prevention of systemic embolism 2.0-3.0 HIGH RISK: Mechanical prosthetic valves 2.5-3.5 Performed By: #### G FR, ANEU, BMP, CBC, PRO, ADIFF #### [place] [id number] [place] [address] PT Coag (PPP) [Time] 22.4 s High 9.0-14.2 [facility] ([place]) Comment on above: Result Comment: Effe ctive 08/22/07, Protime results may be affected by some antibiotics (i.e. Ciprofloxacin, Azithromycin, Bactrim) which may potentiate the action of oral 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, with further increases in Protime/INR. Performed By: #### G FR, ANEU, BMP, CBC, PRO, ADIFF #### [address] [address] .Auto Diffon 04-11-2023 Basophil, Absolute 0.1 10 3/mcL Normal 0.0-0.2 [facility] ([place]) Comment on above: Performed By: #### H H, BMP, GFR #### [address] [address] Basophils/100 WBC (Bld) 0.8 % Normal 0.0-2.5 A [facility] ([place]) Comment on above: Performed By: #### H H, BMP, GFR #### [address] [address] Eosinophil, Absolute 0.1 10 3/mcL Normal 0.0-0.4 [facility] ([place]) Comment on above: Performed By: #### H H, BMP, GFR #### [address] [address] Eosinophils/100 WBC (Bld) 1.4 % Normal 0.0-7.0 [facility] ([place]) Comment on above: Performed By: #### H H, BMP, GFR #### [address] [address] Lymphocyte, Absolute 1.3 10 3/mcL Normal 0.8-3.9 [facility] ([place]) Comment on above: Performed By: #### H H, BMP, GFR #### [address] [address] Lymphocytes/100 WBC (Bld) 12.9 % Normal 10.0-50.0 [facility] ([place]) Comment on above: Performed By: #### H H, BMP, GFR #### [address] [address] Monocyte, Absolute 0.4 10 3/mcL Normal 0.2-1.0 [facility] ([place]) Comment on above: Performed By: #### H H, BMP, GFR #### [address] [address] Monocytes/100 WBC (Bld) 4.6 % Normal 1.7-13.0 A [facility] ([place]) Comment on above: Performed By: #### H H, BMP, GFR #### [address] [address] Neutrophils/100 WBC (Bld) 80.3 % High 37.0-80.0 [facility] ([place] Comment on above: Performed By: #### H H, BMP, GFR #### [address] [address] .GFRon 04-11-2023 GFR 74 ml/min/1.73sqm Normal [facility] ([place] Comment on above: Result Comment: GFR Population [...] By: #### H H, BMP, GFR #### [address] [address] GFR Non- 61 ml/min/1.73sqm Normal [facility] ([place] Comment on above: Result Comment: GFR Population [...] By: #### H H, BMP, GFR #### [address] [address] .MDWon 04-11-2023 Monocyte Distribution Width 17.55 Normal 0.00-20.00 [facility] ([place] Comment on above: Result Comment: For ED adult patients suspected of sepsis, MDW<=20.0 does not rule out sepsis or risk of sepsis Performed By: #### H H, BMP, GFR #### [address] [address] .NEUABSon 04-11-2023 Neutrophil, Absolute 7.9 10 3/mcL High 2.9-6.2 [facility] ([place]) Comment on above: Performed By: #### H H, BMP, GFR #### [address] [address] BMPon 04-11-2023 BUN/Creatinine Ratio 13 ratio Normal 7-27 [facility] ([place]) Comment on above: Performed By: #### H H, BMP, GFR #### [address] [address] Calcium [Mass/Vol] 8.4 mg/dL Normal 8.4-10.2 Pending sale to [facility] ([place]) Comment on above: Performed By: #### H H, BMP, GFR #### [address] [place] [address] Chloride [Moles/Vol] 97 mmol/L Low 98-107 [facility] ([place]) Comment on above: Performed By: #### H Pia BMP, GFR #### [address] [address] CO2 [Moles/Vol] 27 mmol/L Normal 23-31 [facility] ([place]) Comment on above: Performed By: #### H Pia, BMP, GFR #### [address] [address] Creatinine [Mass/Vol] 0.90 mg/dL Normal 0.55-1.02 [facility] ([place]) Comment on above: Performed By: #### Pia Palacio BMP, GFR #### [address] [address] Electrolyte Balance 9.0 mEq/L Normal 4.0-15.0 [facility] ([place]) Comment on above: Performed By: #### Pia Palacio BMP, GFR #### [address] [address] Glucose [Mass/Vol] 256 mg/dL High 83-110 Pending sale to [facility] ([place]) Comment on above: Performed By: #### H ROSALBA Palacio, GFR #### [address] [address] Potassium [Moles/Vol] 4.1 mmol/L Normal 3.5-5.1 [facility] ([place]) Comment on above: Performed By: #### H Pia BMP, GFR #### [address] [address] Sodium [Moles/Vol] 133 mmol/L Low 136-145 Pending sale to [facility] ([place]) Comment on above: Performed By: #### H H, BMP, GFR #### [address] [address] Urea nitrogen [Mass/Vol] 12 mg/dL Normal 7-18 [facility] ([place] Comment on above: Performed By: #### H H, BMP, GFR #### [address] [address] CBCon 04-11-2023 Erythrocyte distribution width (RBC) [Ratio] 13.2 % Normal 11.5-14.5 [facility] ([place] Comment on above: Performed By: #### H H, BMP, GFR #### [address] [address] Hematocrit (Bld) [Volume fraction] 41.4 % Normal 37.0-47.0 [facility] ([place] Comment on above: Performed By: #### H H, BMP, GFR #### [place] [id number] Hgb 14.4 G/dL Normal 12.0-16.0 [facility] ([place] Comment on above: Performed By: #### H H, BMP, GFR #### [address] [address] MCH (RBC) [Entitic mass] 32.2 pg High 27.0-31.2 [facility] ([place] Comment on above: Performed By: #### H H, BMP, GFR #### [address] [address] MCHC 34.8 G/dL Normal 33.0-37.0 [facility] ([place] Comment on above: Performed By: #### H H, BMP, GFR #### [address] [address] MCV (RBC) [Entitic vol] 92.6 fL Normal 80.0-94.0 A [facility] ([place]) Comment on above: Performed By: #### H H, BMP, GFR #### [address] [address] Platelet 186 10 3/mcL Normal 130-400 [facility] ([place] Comment on above: Performed By: #### H H, BMP, GFR #### [address] [address] Platelet mean volume (Bld) [Entitic vol] 7.8 fL Normal 7.4-10.4 [facility] ([place] Comment on above: Performed By: #### H H, BMP, GFR #### [address] [place] [address] [place], [place] [address] RBC 4.47 10 6/mcL Normal 4.20-5.40 [facility] ([place] Comment on above: Performed By: #### H H, BMP, GFR #### [address] [place] [address] [place], [place] [address] WBC 9.8 10 3/mcL Normal 4.6-10.8 [facility]) Comment on above: Performed By: #### H H, BMP, GFR #### [address] [place] [address] [place], [place] [address] CT HEAD OR BRAIN W/O CONTRAS Ton [...] Date: 04/11/2023 11:38:02 AM Ordering Provider: ELADIO Navas [facility]) LABORATORYOrdered By: SYSTEM SYSTEM on 04-11-2023 Basophil, [...] Comment on above: Interpretive Data: Higinio suarez [employer] (CHEST, 1991, 102:312S-25S) [...] Coag (PPP) [Time] 23.9 s High 9.0-14.2 [facility] ([place]) Comment on above: Performed By: #### H H, BMP, GFR #### [address] [place], [place] [address] PT International Ratio 2.1 Normal [facility] ([place]) Comment on above: Result Comment: [employer] (CHEST, 1991, [id number]) recommended therapeutic range for oral anticoagulant therapy is: LOW RISK: Prophylaxis of venous thrombosis INR: 2.0-3.0 Treatment of pulmonary embolism 2.0-3.0 Prevention of systemic embolism 2.0-3.0 HIGH RISK: Mechanical prosthetic valves 2.5-3.5 Performed By: #### H H, BMP, GFR #### [facility] [address], [place] [address] .Auto Diffon 03-09-2023 Basophil, Absolute 0.1 10 3/mcL Normal 0.0-0.2 [facility] ([place]) Comment on above: Performed By: #### P RO #### [address] [address] Basophils/100 WBC (Bld) 1.0 % Normal 0.0-2.5 A [facility] ([place]) Comment on above: Performed By: #### P RO #### [address] [address] Eosinophil, Absolute 0.1 10 3/mcL Normal 0.0-0.4 [facility] ([place]) Comment on above: Performed By: #### P RO #### [address] [address] Eosinophils/100 WBC (Bld) 1.7 % Normal 0.0-7.0 [facility] ([place]) Comment on above: Performed By: #### P RO #### [address] [address] Lymphocyte, Absolute 1.9 10 3/mcL Normal 0.8-3.9 [facility] ([place]) Comment on above: Performed By: #### P RO #### [address] [address] Lymphocytes/100 WBC (Bld) 24.9 % Normal 10.0-50.0 [facility] ([place]) Comment on above: Performed By: #### P RO #### [address] [address] Monocyte, Absolute 0.5 10 3/mcL Normal 0.2-1.0 [facility] ([place]) Comment on above: Performed By: #### P RO #### [address] [address] Monocytes/100 WBC (Bld) 5.9 % Normal 1.7-13.0 A [facility] ([place]) Comment on above: Performed By: #### P RO #### [address] [address] Neutrophils/100 WBC (Bld) 66.5 % Normal 37.0-80.0 [facility] ([place]) Comment on above: Performed By: #### P RO #### [id number] [place], [place] [address] .GFRon 03-09-2023 GFR Non- 77 ml/min/1.73sqm Normal [facility] ([place]) Comment on above: Result Comment: GFR Population [...] FR, ANEU, BMP, CBC, PRO, ADIFF #### [address] [address] GFR 93 ml/min/1.73sqm Normal [facility] ([place]) Comment on above: Result Comment: GFR Population [...] FR, ANEU, BMP, CBC, PRO, ADIFF #### [address] [address] .Morphon 03-09-2023 Platelet Estimate Normal Normal [facility] ([place]) Comment on above: Performed By: #### P RO #### [address] [address] .NEUABSon 03-09-2023 Neutrophil, Absolute 5.1 10 3/mcL Normal 2.9-6.2 [facility] ([place]) Comment on above: Performed By: #### P RO #### [address] [address] CBCon 03-09-2023 Erythrocyte distribution width (RBC) [Ratio] 13.1 % Normal 11.5-14.5 [facility] ([place] Comment on above: Performed By: #### P RO #### [address] [address] Hematocrit (Bld) [Volume fraction] 44.8 % Normal 37.0-47.0 [facility] ([place] Comment on above: Performed By: #### P RO #### [address] [address] Hgb 15.5 G/dL Normal 12.0-16.0 [facility] ([place] Comment on above: Performed By: #### P RO #### [address] [address] MCH (RBC) [Entitic mass] 32.3 pg High 27.0-31.2 [facility] ([place] Comment on above: Performed By: #### P RO #### [address] [address] MCHC 34.5 G/dL Normal 33.0-37.0 [facility] ([place] Comment on above: Performed By: #### P RO #### [address] [address] MCV (RBC) [Entitic vol] 93.6 fL Normal 80.0-94.0 A [facility] ([place]) Comment on above: Performed By: #### P RO #### [address] [address] Platelet 247 10 3/mcL Normal 130-400 [facility] ([place] Comment on above: Performed By: #### P RO #### [address] [address] Platelet mean volume (Bld) [Entitic vol] 8.4 fL Normal 7.4-10.4 [facility] ([place] Comment on above: Performed By: #### P RO #### [address] [address] RBC 4.79 10 6/mcL Normal 4.20-5.40 [facility] ([place] Comment on above: Performed By: #### P RO #### [address] [address] WBC 7.7 10 3/mcL Normal 4.6-10.8 [facility] ([place] Comment on above: Performed By: #### P RO #### [address] [address] CMPon 03-09-2023 Albumin Level 3.6 G/dL Normal 3.4-4.8 [facility] ([place] Comment on above: Performed By: #### P RO #### [address] [address] Albumin/Globulin [Mass ratio] 1.1 {ratio} Normal 1.1-2.5 [facility] ([place] Comment on above: Performed By: #### P RO #### [address] [address] ALP [Catalytic activity/Vol] 110 U/L Normal 40-135 [facility] ([place]) Comment on above: Performed By: #### P RO #### [address] [address] ALT [Catalytic activity/Vol] 28 U/L Normal 14-59 [facility] ([place] Comment on above: Performed By: #### P RO #### [address] [address] AST [Catalytic activity/Vol] 29 U/L Normal 10-40 [facility] ([place]) Comment on above: Performed By: #### P RO #### [address] [address] Bili Total 0.5 mg/dL Normal 0.2-1.0 [facility] ([place]) Comment on above: Result Comment: Use of this assay is not recommended for patients undergoing treatment with eltrombopag due to the potential for falsely elevated results. Performed By: #### P RO #### [address] [address] BUN/Creatinine Ratio 19 ratio Normal 7-27 [facility] ([place]) Comment on above: Performed By: #### P RO #### [address] [address] Calcium [Mass/Vol] 9.1 mg/dL Normal 8.4-10.2 Pending [facility] to [facility] ([place]) Comment on above: Performed By: #### P RO #### [address] [address] Chloride [Moles/Vol] 98 mmol/L Normal 98-107 [facility] ([place]) Comment on above: Performed By: #### P RO #### [address] [address] CO2 [Moles/Vol] 30 mmol/L Normal 23-31 [facility] ([place]) Comment on above: Performed By: #### P RO #### [address] [address] Creatinine [Mass/Vol] 0.74 mg/dL Normal 0.55-1.02 [facility] ([place]) Comment on above: Performed By: #### P RO #### [address] [address] Electrolyte Balance 10.0 mEq/L Normal 4.0-15.0 [facility] ([place]) Comment on above: Performed By: #### P RO #### [address] [address] Globulin 3.4 G/dL Normal [facility] ([place]) Comment on above: Performed By: #### P RO #### [address] [place], [place] [address] Glucose [Mass/Vol] 138 mg/dL High 83-110 [facility] ([place]) Comment on above: Performed By: #### P RO #### [address] [place], [place] [address] Potassium [Moles/Vol] 4.4 mmol/L Normal 3.5-5.1 [facility] ([place]) Comment on above: Performed By: #### P RO #### [id number] [place], [place] [address] Sodium [Moles/Vol] 138 mmol/L Normal 136-145 [facility] ([place]) Comment on above: Performed By: #### P RO #### [address] [place], [place] [address] Total Protein 7.0 G/dL Normal 6.4-8.2 [facility] ([place]) Comment on above: Performed By: #### P RO #### [address] [place], [place] [address] Urea nitrogen [Mass/Vol] 14 mg/dL Normal 7-18 [facility] ([place]) Comment on above: Performed By: #### P RO #### [address] [address] LABORATORYOrdered By: SYSTEM SYSTEM on 03-09-2023 Albumin [...] [facility] Comment on above: Interpretive Data: T he [place] [employer] (CHEST, 1992, 102:[id number]) recommended therapeutic range for oral anticoagulant therapy is: LOW RISK: Prophylaxis of venous thrombosis INR: 2.0-3.0 Treatment of pulmonary embolism 2.0-3.0 Prevention of systemic embolism 2.0-3.0 HIGH RISK: Mechanical prosthetic valves 2.5-3.5 PT Coag (PPP) [Time] 23.6 s High 9.0 - 1 4.2 seconds AO [facility] LABORATORYOrdered By: Lliia Castaneda on 03-09-2023 Platelet Estimate Normal (03/09/23 10:57 AM) Normal AO Hematology S PROon 03-09-2023 PT Coag (PPP) [Time] 23.6 s High 9.0-14.2 [facility] ([place]) Comment on above: Performed By: #### P RO #### [address] [address] PT International Ratio 2.0 Normal [facility] ([place]) Comment on above: Result Comment: The [place] [employer] (CHEST, 1991, 102:[id number]) recommended therapeutic range for oral anticoagulant therapy is: LOW RISK: Prophylaxis of venous thrombosis INR: 2.0-3.0 Treatment of pulmonary embolism 2.0-3.0 Prevention of systemic embolism 2.0-3.0 HIGH RISK: Mechanical prosthetic valves 2.5-3.5 Performed By: #### P RO #### [address] [place], [place] [address] TSHon 03-09-2023 TSH Qn 0.93 m[IU]/L Normal 0.36-3.74 [facility] ([place]) Comment on above: Performed By: #### P RO #### [address] [place], [place] [address] Absolute lymphocyte countOrd ered By: Tod Ghotra on 01-21-2023 Lymphocytes Auto (Unsp spec) [#/Vol] 1.57 10*3/uL 0.83-4.51 [facility] Basophil percentageOrdered B y: Tod Ghotra on 01-21-2023 Basophil percentage 0-5 SEEN /hpf 0-5 [facility] Basophils/100 WBC (Bld) 1.2 % 0-1 [facility] Bilirubin [Mass/Vol] 0.40 mg/dL 0.20-1.00 [facility] Comment on above: For patients on eltr ombopag therapy, use of Dimension [place] TBIL is not recommended. Chloride [Moles/Vol] 100 mmol/L 98-107 [facility] Eosinophils/100 WBC (Bld) 1.4 % 0-5 [facility] Glucose [Mass/Vol] 173 mg/dL 74-106 [facility] Comment on above: Fasting Glucose resu lt greater than or equal to 126 mg/dL suggests DIABETES MELLITUS per A.D.A. criteria. Neutrophils (Bld) [#/Vol] 4.3 10*3/uL 2.0-7.7 [facility] Neutrophils/100 WBC (Bld) 64.2 % 47-70 [facility] Potassium [Moles/Vol] 3.6 mmol/L 3.5-5.1 [facility] Protein [Mass/Vol] 7.1 g/dL 6.4-8.2 [facility] Sodium [Moles/Vol] 137 mmol/L 136-145 [facility] WBC (Bld) [#/Vol] 6.6 10*3/uL 4.4-11.0 [facility] Bilirubin Test strip Ql (U)O rdered By: Tod Ghotra on 01-21-2023 Bilirubin Ql (U) Negative Negative [facility] Blood erythrocytes count (nu mber/volume)Ordered By: Tod Ghotra on 01-21-2023 RBC (Bld) [#/Vol] 4.80 10*6/uL 4.2-5.4 [facility] Blood hemoglobin measurement (mass/volume)Ordered By: Tod Ghotra on 01-21-2023 Hemoglobin (Bld) [Mass/Vol] 15.0 g/dL 12.0-15.0 [facility] Blood lymphocytes/100 leukoc ytesOrdered By: Tod Ghotra on 01-21-2023 Lymphocytes/100 WBC (Bld) 23.6 % 19-41 [facility] Blood monocytes/100 leukocyt esOrdered By: Tod Ghotra on 01-21-2023 Monocytes/100 WBC (Bld) 9.0 % 0-10 [facility] Blood platelet mean volumeOr dered By: Tod Ghotra on 01-21-2023 Platelet mean volume (Bld) [Entitic vol] 9.8 fL 6.2-12.0 [facility] Determination of erythrocyte mean corpuscular volume (MCV)Ordered By: Tod Ghotra on 01-21-2023 MCV (RBC) [Entitic vol] 94.2 fL 81-99 [facility] Hematocrit Auto (Bld) [Volum e fraction]Ordered By: Tod Ghotra on 01-21-2023 Hematocrit (Bld) [Volume fraction] 45.2 % 37-47 [facility] INR in Blood by Coagulation assayOrdered By: Tod Ghotra on 01-21-2023 INR Coag (Bld) [Relative time] 1.3 {INR} [facility] Ketones Test strip Ql (U)Ord ered By: Tod Ghotra on 01-21-2023 Ketones Ql (U) Negative Negative [facility] Laboratory - Chemistry and C hemistry - challengeOrdered By: Tod Ghotra on 01-21-2023 ALP [Catalytic activity/Vol] 98 U/L 45-117 [facility] ALT [Catalytic activity/Vol] 24 U/L 13-56 [facility] CO2 [Moles/Vol] 30.0 mmol/L 21.0-32.0 [facility] Globulin (S) [Mass/Vol] 3.5 g/dL 2.2-4.2 [facility] Urea nitrogen/Creatinine [Mass ratio] 15.9 mg/mg 10-20 [facility] Laboratory - CoagulationOrde red By: Tod Ghotra on 01-21-2023 PT Coag (PPP) [Time] 16.3 s 11.7-14.9 [facility] Laboratory - Hematology and Cell countsOrdered By: Tod Ghotra on 01-21-2023 Erythrocyte distribution width (RBC) [Entitic vol] 43.8 fL 35.1-43.9 [facility] Erythrocyte distribution width (RBC) [Ratio] 12.6 % 11.6-14.6 [facility] Immature granulocytes/100 WBC (Bld) 0.600 % 0.0-0.9 [facility] Comment on above: IG% - Immature Granu locytes (promyelocytes, myelocytes and metamyelocytes) > 1% indicates that a LEFT SHIFT is Present. MCH (RBC) [Entitic mass] 31.3 pg 27.0-32.0 [facility] Nucleated RBC/100 WBC (Bld) [Ratio] 0 % 0-5 [facility] MCHC Auto (RBC) [Mass/Vol]Or dered By: Tod Ghotra on 01-21-2023 MCHC (RBC) [Mass/Vol] 33.2 g/dL 32-36 [facility] Mucus LM Ql (Urine sed)Order ed By: Tod Ghotra on 01-21-2023 Mucus Ql (Urine sed) 0 SEEN /hpf [facility] Nitrite Test strip Ql (U)Ord ered By: Tod Ghtora on 01-21-2023 Nitrite Ql (U) Negative Negative [facility] No Panel InformationOrdered By: Tod Ghotra on 01-21-2023 Troponin I High Sensitivity 87 pg/mL 3.0-54.0 [facility] Comment on above: Please Note: [place] t Units and Gender Specific Reference Ranges. For more information see Policy Stat Procedure [place] High Sensitivity Troponin (TNIH) and attachments. Estimated Creatinine Clearance Calc 39.63 ml/min [facility] Estimated GFR (MDRD) Amer 97 mL/min >60 [facility] Comment on above: GFR Calc Estimated GFR (MDRD) Non-Af Amer 80 mL/min >60 [facility] Comment on above: Non- GFR Calc Platelets bldOrdered By: Armand Ghotra on 01-21-2023 Platelets (Bld) [#/Vol] 226 10*3/uL 150-450 [facility] Protein Test strip Ql (U)Ord ered By: Tod Ghotra on 01-21-2023 Protein Ql (U) 30 mg/dl Negative [facility] Serum or plasma albumin tres urement (mass/volume)Ordered By: Tod Ghotra on 01-21-2023 Albumin [Mass/Vol] 3.6 g/dL 3.2-5.0 [facility] Serum or plasma albumin/glob ulin mass ratioOrdered By: Tod Ghotra on 01-21-2023 Albumin/Globulin [Mass ratio] 1.0 {ratio} 0.9-2.4 [facility] Serum or plasma calcium tres urement (mass/volume)Ordered By: Tod Ghotra on 01-21-2023 Calcium [Mass/Vol] 9.1 mg/dL 8.5-10.1 [facility] Serum or plasma creatinine m easurement (mass/volume)Ordered By: Tod Ghotra on 01-21-2023 Creatinine [Mass/Vol] 0.75 mg/dL 0.55-1.02 [facility] Comment on above: The validity of the calculated GFR & GFRAA in patients over 70 years has not been determined. Clinical correlation is essential. Serum or plasma urea nitroge n measurement (mass/volume)Ordered By: Tod Ghotra on 01-21-2023 Urea nitrogen [Mass/Vol] 12 mg/dL 7-18 [facility] Squamous epithelial cells de tection in urine sediment by light microscopyOrdered By: Tod Ghotra on 01-21-2023 Epithelial cells.squamous LM Ql (Urine sed) 5-10 SEEN /hpf 5-10 [facility] Thin prep Papanicolaou smear with manual screeningOrdered By: Tod Ghotra on 01-21-2023 Thin prep Papanicolaou smear with manual screening 18 U/L 15-37 [facility] Thin prep Papanicolaou smear with manual screening 7 5-15 [facility] Urine blood detectionOrdered By: Tod Ghotra on 01-21-2023 RBC Ql (U) 10 /ul Negative [facility] RBC Ql (U) 0 SEEN /hpf 0-5 [facility] Urine clarityOrdered By: Armand Ghotra on 01-21-2023 Clarity (U) Clear Clear [facility] Urine color determinationOrd ered By: Tod Ghotra on 01-21-2023 Color (U) Straw Yellow [facility] Urine glucose detectionOrder ed By: Tod Ghotra on 01-21-2023 Glucose Ql (U) 50 mg/dl Normal [facility] Urine leukocyte esterase det ection by dipstickOrdered By: Tod Ghotra on 01-21-2023 Leukocyte esterase Test strip Ql (U) 25 /ul Negative [facility] Urine pHOrdered By: Tod raman on 01-21-2023 pH (U) 7.0 [pH] 5.0 - 8.0 [facility] Urine sediment bacteria coun t by microscopy (number/high power field)Ordered By: Tod Ghotra on 01-21-2023 Bacteria LM.HPF (Urine sed) [#/Area] 1 /[HPF] None Seen [facility] Urine specific gravity measu rementOrdered By: Tod Ghotra on 01-21-2023 Specific gravity (U) [Rel density] 1.010 1.002-1.030 [facility] Urobilinogen Auto test strip Ql (U)Ordered By: Tod Ghotra on 01-21-2023 Urobilinogen Ql (U) Normal mg/dl Normal [facility] INR in Blood by Coagulation assayOrdered By: Rosalva Ortez on 01-20-2023 INR Coag (Bld) [Relative time] 1.4 {INR} [facility] Laboratory - CoagulationOrde red By: Rosalvayaakov Ortez on 01-20-2023 PT Coag (PPP) [Time] 17.1 s 11.7-14.9 [facility] Absolute lymphocyte countOrd ered By: Eladio Almanza on 01-16-2023 Lymphocytes Auto (Unsp spec) [#/Vol] 1.93 10*3/uL 0.83-4.51 [facility] Basophil percentageOrdered B y: Eladio Almanza on 01-16-2023 Basophil percentage 3.1 mg/dL 2.5-4.9 [facility] Basophils/100 WBC (Bld) 1.2 % 0-1 [facility] Bilirubin [Mass/Vol] 0.20 mg/dL 0.20-1.00 [facility] Comment on above: For patients on eltr ombopag therapy, use of Dimension [place] TBIL is not recommended. Chloride [Moles/Vol] 105 mmol/L 98-107 [facility] Eosinophils/100 WBC (Bld) 1.1 % 0-5 [facility] Glucose [Mass/Vol] 120 mg/dL 74-106 [facility] Comment on above: Fasting Glucose resu lt from 100 to 125 mg/dL suggests IMPAIRED HOMEOSTASIS per A.D.A. criteria. Neutrophils (Bld) [#/Vol] 3.8 10*3/uL 2.0-7.7 [facility] Neutrophils/100 WBC (Bld) 58.4 % 47-70 [facility] Potassium [Moles/Vol] 3.4 mmol/L 3.5-5.1 [facility] Protein [Mass/Vol] 6.2 g/dL 6.4-8.2 [facility] Sodium [Moles/Vol] 139 mmol/L 136-145 [facility] WBC (Bld) [#/Vol] 6.5 10*3/uL 4.4-11.0 [facility] Blood erythrocytes count (nu mber/volume)Ordered By: Eladio Almanza on 01-16-2023 RBC (Bld) [#/Vol] 4.42 10*6/uL 4.2-5.4 [facility] Blood hemoglobin measurement (mass/volume)Ordered By: Eladio Almanza on 01-16-2023 Hemoglobin (Bld) [Mass/Vol] 13.7 g/dL 12.0-15.0 [facility] Blood lymphocytes/100 leukoc ytesOrdered By: Eladio Almanza on 01-16-2023 Lymphocytes/100 WBC (Bld) 29.8 % 19-41 [facility] Blood monocytes/100 leukocyt esOrdered By: Eladio Almanza on 01-16-2023 Monocytes/100 WBC (Bld) 9.0 % 0-10 [facility] Blood platelet mean volumeOr dered By: Eladio Almanza on 01-16-2023 Platelet mean volume (Bld) [Entitic vol] 10.1 fL 6.2-12.0 [facility] Determination of erythrocyte mean corpuscular volume (MCV)Ordered By: Eladio Almanza on 01-16-2023 MCV (RBC) [Entitic vol] 93.4 fL 81-99 [facility] Direct bilirubinOrdered By: Eladio Almanza on 01-16-2023 Bilirubin.direct [Mass/Vol] 0.08 mg/dL 0.00-0.30 [facility] Hematocrit Auto (Bld) [Volum e fraction]Ordered By: Eladio Almanza on 01-16-2023 Hematocrit (Bld) [Volume fraction] 41.3 % 37-47 [facility] Laboratory - Chemistry and C hemistry - challengeOrdered By: Eladio Almanza on 01-16-2023 ALP [Catalytic activity/Vol] 88 U/L 45-117 [facility] ALT [Catalytic activity/Vol] 18 U/L 13-56 [facility] CO2 [Moles/Vol] 29.0 mmol/L 21.0-32.0 [facility] Globulin (S) [Mass/Vol] 3.0 g/dL 2.2-4.2 [facility] Magnesium [Mass/Vol] 2.2 mg/dL 1.6-2.6 [facility] Urea nitrogen/Creatinine [Mass ratio] 18.2 mg/mg 10-20 [facility] Laboratory - Hematology and Cell countsOrdered By: Eladio Almanza on 01-16-2023 Erythrocyte distribution width (RBC) [Entitic vol] 44.7 fL 35.1-43.9 [facility] Erythrocyte distribution width (RBC) [Ratio] 13.1 % 11.6-14.6 [facility] Immature granulocytes/100 WBC (Bld) 0.500 % 0.0-0.9 [facility] Comment on above: IG% - Immature Granu locytes (promyelocytes, myelocytes and metamyelocytes) > 1% indicates that a LEFT SHIFT is Present. MCH (RBC) [Entitic mass] 31.0 pg 27.0-32.0 [facility] Nucleated RBC/100 WBC (Bld) [Ratio] 0 % 0-5 [facility] MCHC Auto (RBC) [Mass/Vol]Or dered By: Eladio Almanza on 01-16-2023 MCHC (RBC) [Mass/Vol] 33.2 g/dL 32-36 [facility] No Panel InformationOrdered By: Eladio Almanza on 01-16-2023 Estimated Creatinine Clearance Calc 39.63 ml/min [facility] Estimated GFR (MDRD) Amer 125 mL/min >60 [facility] Comment on above: GFR Calc Estimated GFR (MDRD) Non-Af Amer 103 mL/min >60 [facility] Comment on above: Non- GFR Calc Thyroid Stimulating Hormone (TSH) 0.69 uIU/mL 0.358-3.74 [facility] Platelets bldOrdered By: Manny Almanza on 01-16-2023 Platelets (Bld) [#/Vol] 225 10*3/uL 150-450 [facility] Serum or plasma albumin tres urement (mass/volume)Ordered By: Eladio Almanza on 01-16-2023 Albumin [Mass/Vol] 3.2 g/dL 3.2-5.0 [facility] Serum or plasma albumin/glob ulin mass ratioOrdered By: Eladio Almanza on 01-16-2023 Albumin/Globulin [Mass ratio] 1.1 {ratio} 0.9-2.4 [facility] Serum or plasma calcium tres urement (mass/volume)Ordered By: Eladio Almanza on 01-16-2023 Calcium [Mass/Vol] 8.2 mg/dL 8.5-10.1 [facility] Serum or plasma creatinine m easurement (mass/volume)Ordered By: Eladio Almanza on 01-16-2023 Creatinine [Mass/Vol] 0.60 mg/dL 0.55-1.02 [facility] Comment on above: The validity of the calculated GFR & GFRAA in patients over 70 years has not been determined. Clinical correlation is essential. Serum or plasma urea nitroge n measurement (mass/volume)Ordered By: Eladio Almanza on 01-16-2023 Urea nitrogen [Mass/Vol] 11 mg/dL 7-18 [facility] Thin prep Papanicolaou smear with manual screeningOrdered By: Eladio Almanza on 01-16-2023 Thin prep Papanicolaou smear with manual screening 16 U/L 15-37 [facility] Thin prep Papanicolaou smear with manual screening 5 5-15 [facility] Absolute lymphocyte countOrd ered By: Johnathon Richardson on 01-15-2023 Lymphocytes Auto (Unsp spec) [#/Vol] 1.25 10*3/uL 0.83-4.51 [facility] Basophil percentageOrdered B y: Johnathon Richardson on 01-15-2023 Basophil percentage 0-5 SEEN /hpf 0-5 [facility] Basophils/100 WBC (Bld) 0.9 % 0-1 [facility] Chloride [Moles/Vol] 102 mmol/L 98-107 [facility] Eosinophils/100 WBC (Bld) 1.0 % 0-5 [facility] Glucose [Mass/Vol] 126 mg/dL 74-106 [facility] Comment on above: Fasting Glucose resu lt greater than or equal to 126 mg/dL suggests DIABETES MELLITUS per A.D.A. criteria. Neutrophils (Bld) [#/Vol] 5.9 10*3/uL 2.0-7.7 [facility] Neutrophils/100 WBC (Bld) 75.9 % 47-70 [facility] Potassium [Moles/Vol] 3.5 mmol/L 3.5-5.1 [facility] Sodium [Moles/Vol] 137 mmol/L 136-145 [facility] WBC (Bld) [#/Vol] 7.7 10*3/uL 4.4-11.0 [facility] Bilirubin Test strip Ql (U)O rdered By: Johnathon Richardson on 01-15-2023 Bilirubin Ql (U) Negative Negative [facility] Blood erythrocytes count (nu mber/volume)Ordered By: Johnathon Richardson on 01-15-2023 RBC (Bld) [#/Vol] 4.57 10*6/uL 4.2-5.4 [facility] Blood hemoglobin measurement (mass/volume)Ordered By: Johnathon Richardson on 01-15-2023 Hemoglobin (Bld) [Mass/Vol] 14.6 g/dL 12.0-15.0 [facility] Blood lymphocytes/100 leukoc ytesOrdered By: Johnathon Richardson on 01-15-2023 Lymphocytes/100 WBC (Bld) 16.2 % 19-41 [facility] Blood monocytes/100 leukocyt esOrdered By: Johnathon Richardson on 01-15-2023 Monocytes/100 WBC (Bld) 5.4 % 0-10 [facility] Blood platelet mean volumeOr dered By: Johnathon Richardson on 01-15-2023 Platelet mean volume (Bld) [Entitic vol] 9.5 fL 6.2-12.0 [facility] Determination of erythrocyte mean corpuscular volume (MCV)Ordered By: Johnathon Richardson on 01-15-2023 MCV (RBC) [Entitic vol] 92.3 fL 81-99 [facility] Hematocrit Auto (Bld) [Volum e fraction]Ordered By: Johnathon Richardson on 01-15-2023 Hematocrit (Bld) [Volume fraction] 42.2 % 37-47 [facility] INR in Blood by Coagulation assayOrdered By: Johnathon Richardson on 01-15-2023 INR Coag (Bld) [Relative time] 1.8 {INR} [facility] Ketones Test strip Ql (U)Ord ered By: Johnathon Richardson on 01-15-2023 Ketones Ql (U) Negative Negative [facility] Laboratory - Chemistry and C hemistry - challengeOrdered By: Johnathon Richardson on 01-15-2023 CO2 [Moles/Vol] 32.0 mmol/L 21.0-32.0 [facility] Urea nitrogen/Creatinine [Mass ratio] 16.8 mg/mg 10-20 [facility] Laboratory - CoagulationOrde red By: Johnathon Richardson on 01-15-2023 aPTT Coag (Bld) [Time] 32.0 s 24.1-36.2 [facility] PT Coag (PPP) [Time] 20.7 s 11.7-14.9 [facility] Laboratory - Hematology and Cell countsOrdered By: Johnathon Richardson on 01-15-2023 Erythrocyte distribution width (RBC) [Entitic vol] 43.4 fL 35.1-43.9 [facility] Erythrocyte distribution width (RBC) [Ratio] 12.8 % 11.6-14.6 [facility] Immature granulocytes/100 WBC (Bld) 0.600 % 0.0-0.9 [facility] Comment on above: IG% - Immature Granu locytes (promyelocytes, myelocytes and metamyelocytes) > 1% indicates that a LEFT SHIFT is Present. MCH (RBC) [Entitic mass] 31.9 pg 27.0-32.0 [facility] Nucleated RBC/100 WBC (Bld) [Ratio] 0 % 0-5 [facility] MCHC Auto (RBC) [Mass/Vol]Or dered By: Johnathon Richardson on 01-15-2023 MCHC (RBC) [Mass/Vol] 34.6 g/dL 32-36 [facility] Mucus LM Ql (Urine sed)Order ed By: Johnathon Ricahrdson on 01-15-2023 Mucus Ql (Urine sed) 0 SEEN /hpf [facility] Nitrite Test strip Ql (U)Ord ered By: Johnathon Richardson on 01-15-2023 Nitrite Ql (U) Negative Negative [facility] No Panel InformationOrdered By: Johnathon Richardson on 01-15-2023 Estimated Creatinine Clearance Calc 39.63 ml/min [facility] Estimated GFR (MDRD) Amer 103 mL/min >60 [facility] Comment on above: GFR Calc Estimated GFR (MDRD) Non-Af Amer 85 mL/min >60 [facility] Comment on above: Non- GFR Calc Platelets bldOrdered By: Davon Richardson on 01-15-2023 Platelets (Bld) [#/Vol] 226 10*3/uL 150-450 [facility] Protein Test strip Ql (U)Ord ered By: Johnathon Richardson on 01-15-2023 Protein Ql (U) 15 mg/dl Negative [facility] Serum or plasma calcium tres urement (mass/volume)Ordered By: Johnathon Richardson on 01-15-2023 Calcium [Mass/Vol] 8.8 mg/dL 8.5-10.1 [facility] Serum or plasma creatinine m easurement (mass/volume)Ordered By: Johnathon Richardson on 01-15-2023 Creatinine [Mass/Vol] 0.72 mg/dL 0.55-1.02 [facility] Comment on above: The validity of the calculated GFR & GFRAA in patients over 70 years has not been determined. Clinical correlation is essential. Serum or plasma urea nitroge n measurement (mass/volume)Ordered By: Johnathon Richardson on 01-15-2023 Urea nitrogen [Mass/Vol] 12 mg/dL 7-18 [facility] Squamous epithelial cells de tection in urine sediment by light microscopyOrdered By: Johnathon Richardson on 01-15-2023 Epithelial cells.squamous LM Ql (Urine sed) 0-5 SEEN /hpf 5-10 [facility] Thin prep Papanicolaou smear with manual screeningOrdered By: Johnathon Richardson on 01-15-2023 Thin prep Papanicolaou smear with manual screening 3 5-15 [facility] Urine blood detectionOrdered By: Johnathon Richardson on 01-15-2023 RBC Ql (U) 10 /ul Negative [facility] RBC Ql (U) 0-5 SEEN /hpf 0-5 [facility] Urine clarityOrdered By: Davon Richardson on 01-15-2023 Clarity (U) Sl. Cloudy Clear [facility] Urine color determinationOrd ered By: Johnathon Richardson on 01-15-2023 Color (U) Yellow Yellow [facility] Urine glucose detectionOrder ed By: Johnathon Richardson on 01-15-2023 Glucose Ql (U) Normal mg/dl Normal [facility] Urine leukocyte esterase det ection by dipstickOrdered By: Johnathon Richardson on 01-15-2023 Leukocyte esterase Test strip Ql (U) Negative Negative [facility] Urine pHOrdered By: Johnathon Richardson on 01-15-2023 pH (U) 8.0 [pH] 5.0 - 8.0 [facility] Urine sediment bacteria coun t by microscopy (number/high power field)Ordered By: Johnathon Richardson on 01-15-2023 Bacteria LM.HPF (Urine sed) [#/Area] 0 /[HPF] None Seen [facility] Urine specific gravity measu rementOrdered By: Johnathon Richardson on 01-15-2023 Specific gravity (U) [Rel density] 1.015 1.002-1.030 [facility] Urobilinogen Auto test strip Ql (U)Ordered By: Johnathon Richardson on 01-15-2023 Urobilinogen Ql (U) Normal mg/dl Normal [facility] .Auto Diffon 12-24-2022 Basophil, Absolute 0.1 10 3/mcL Normal 0.0-0.2 [facility] ([place]) Comment on above: Performed By: #### H H, BMP, GFR #### [address] [address] Basophils/100 WBC (Bld) 1.2 % Normal 0.0-2.5 [facility] ([place]) Comment on above: Performed By: #### H H, BMP, GFR #### [address] [address] Eosinophil, Absolute 0.1 10 3/mcL Normal 0.0-0.4 [facility] ([place]) Comment on above: Performed By: #### H H, BMP, GFR #### [address] [address] Eosinophils/100 WBC (Bld) 0.7 % Normal 0.0-7.0 [facility] ([place] Comment on above: Performed By: #### H H, BMP, GFR #### [address] [address] Lymphocyte, Absolute 1.7 10 3/mcL Normal 0.8-3.9 [facility] ([place]) Comment on above: Performed By: #### H H, BMP, GFR #### [address] [address] Lymphocytes/100 WBC (Bld) 25.4 % Normal 10.0-50.0 [facility] ([place] Comment on above: Performed By: #### H H, BMP, GFR #### [address] [address] Monocyte, Absolute 0.4 10 3/mcL Normal 0.2-1.0 [facility] ([place]) Comment on above: Performed By: #### H H, BMP, GFR #### [address] [address] Monocytes/100 WBC (Bld) 6.5 % Normal 1.7-13.0 [facility] ([place]) Comment on above: Performed By: #### H H, BMP, GFR #### [address] [address] Neutrophils/100 WBC (Bld) 66.2 % Normal 37.0-80.0 [facility] ([place] Comment on above: Performed By: #### H H, BMP, GFR #### [address] [address] .GFRon 12-24-2022 GFR Non- 77 ml/min/1.73sqm Normal [facility] ([place] Comment on above: Result Comment: GFR Population [...] By: #### H H, BMP, GFR #### [address] [address] GFR 93 ml/min/1.73sqm Normal [facility] ([place] Comment on above: Result Comment: GFR Population [...] By: #### H H, BMP, GFR #### [address]y [address] [address] .NEUABSon 12-24-2022 Neutrophil, Absolute 4.5 10 3/mcL Normal 2.9-6.2 [facility] ([place]) Comment on above: Performed By: #### H H, BMP, GFR #### [address] [address] A1Con 12-24-2022 HbA1c (Bld) [Mass fraction] 6.5 % High 4.3-6.4 [facility] ([place] Comment on above: Performed By: #### P RO #### [address] [address] CBCon 12-24-2022 Erythrocyte distribution width (RBC) [Ratio] 14.6 % High 11.5-14.5 [facility] ([place] Comment on above: Performed By: #### H H, BMP, GFR #### [address] [address] Hematocrit (Bld) [Volume fraction] 41.6 % Normal 37.0-47.0 [facility] ([place] Comment on above: Performed By: #### H H, BMP, GFR #### [address] [address] Hgb 14.2 G/dL Normal 12.0-16.0 [facility] ([place] Comment on above: Performed By: #### H H, BMP, GFR #### [address] [address] MCH (RBC) [Entitic mass] 31.7 pg High 27.0-31.2 [facility] ([place] Comment on above: Performed By: #### H H, BMP, GFR #### [address] [address] MCHC 34.2 G/dL Normal 33.0-37.0 [facility] ([place] Comment on above: Performed By: #### H H, BMP, GFR #### [address] [address] MCV (RBC) [Entitic vol] 92.5 fL Normal 80.0-94.0 [facility] ([place] Comment on above: Performed By: #### H H, BMP, GFR #### [address] [address] Platelet 231 10 3/mcL Normal 130-400 [facility] ([place] Comment on above: Performed By: #### H H, BMP, GFR #### [address] [address] Platelet mean volume (Bld) [Entitic vol] 8.1 fL Normal 7.4-10.4 [facility] ([place] Comment on above: Performed By: #### H H, BMP, GFR #### [address] [address] RBC 4.50 10 6/mcL Normal 4.20-5.40 [facility] ([place] Comment on above: Performed By: #### H H, BMP, GFR #### [address] [address] WBC 6.8 10 3/mcL Normal 4.6-10.8 [facility] ([place] Comment on above: Performed By: #### H H, BMP, GFR #### [address] [address] CMPon 12-24-2022 Albumin Level 3.5 G/dL Normal 3.4-4.8 [facility] ([place] Comment on above: Performed By: #### H H, BMP, GFR #### [address] [address] Albumin/Globulin [Mass ratio] 1.1 {ratio} Normal 1.1-2.5 [facility] ([place] Comment on above: Performed By: #### H H, BMP, GFR #### [address] [address] ALP [Catalytic activity/Vol] 112 U/L Normal 40-135 [facility] ([place] Comment on above: Performed By: #### H H, BMP, GFR #### [place] [id number] ALT [Catalytic activity/Vol] 24 U/L Normal 14-59 [facility] ([place] Comment on above: Performed By: #### H H, BMP, GFR #### [place] [id number] AST [Catalytic activity/Vol] 21 U/L Normal 10-40 [facility] ([place] Comment on above: Performed By: #### H H, BMP, GFR #### [address] [address] Bili Total 0.3 mg/dL Normal 0.2-1.0 [facility] ([place] Comment on above: Result Comment: Use of this assay is not recommended for patients undergoing treatment with eltrombopag due to the potential for falsely elevated results. Performed By: #### H H, BMP, GFR #### [address] [address] BUN/Creatinine Ratio 15 ratio Normal 7-27 [facility] ([place]) Comment on above: Performed By: #### H H, BMP, GFR #### [address] [address] Calcium [Mass/Vol] 8.8 mg/dL Normal 8.4-10.2 Pending [facility] to [facility] ([place]) Comment on above: Performed By: #### H H, BMP, GFR #### [place] [phone] Chloride [Moles/Vol] 97 mmol/L Low 98-107 [facility] ([place]) Comment on above: Performed By: #### H Pia BMP, GFR #### [address] [address] CO2 [Moles/Vol] 31 mmol/L Normal 23-31 [facility] ([place] Comment on above: Performed By: #### H Pia BMP, GFR #### [address] [address] Creatinine [Mass/Vol] 0.74 mg/dL Normal 0.55-1.02 [facility] ([place]) Comment on above: Performed By: #### Pia Palacio BMP, GFR #### [address] [address] Electrolyte Balance 7.0 mEq/L Normal 4.0-15.0 [facility] ([place]) Comment on above: Performed By: #### Pia Palacio BMP, GFR #### [address] [address] Globulin 3.3 G/dL Normal [facility] ([place] Comment on above: Performed By: #### H Pia BMP, GFR #### [address] [address] Glucose [Mass/Vol] 116 mg/dL High 83-110 [facility] ([place]) Comment on above: Performed By: #### H Pia BMP, GFR #### [address] [address] Potassium [Moles/Vol] 4.9 mmol/L Normal 3.5-5.1 [facility] ([place]) Comment on above: Performed By: #### H H, BMP, GFR #### [address] [address] Sodium [Moles/Vol] 135 mmol/L Low 136-145 [facility] ([place]) Comment on above: Performed By: #### H H, BMP, GFR #### [address] [address] Total Protein 6.8 G/dL Normal 6.4-8.2 [facility] ([place] Comment on above: Performed By: #### H H, BMP, GFR #### [address] [place] [address] [place], [place] [address] Urea nitrogen [Mass/Vol] 11 mg/dL Normal 7-18 [facility] ([place] Comment on above: Performed By: #### H H, BMP, GFR #### [address] [place] [id number] [place], [place] [address] LABORATORYOrdered By: SYSTEM SYSTEM on 12-24-2022 Albumin [...] Basophil, Absolute 0.1 10 3/mcL Normal 0.0-0.2 [facility] ([place]) Comment on above: Performed By: #### H H, BMP, GFR #### [address] [address] Basophils/100 WBC (Bld) 1.2 % Normal 0.0-2.5 [facility] ([place] Comment on above: Performed By: #### H H, BMP, GFR #### [address] [address] Eosinophil, Absolute 0.1 10 3/mcL Normal 0.0-0.4 [facility] ([place]) Comment on above: Performed By: #### H H, BMP, GFR #### [address] [address] Eosinophils/100 WBC (Bld) 1.5 % Normal 0.0-7.0 [facility] ([place] Comment on above: Performed By: #### H H, BMP, GFR #### [address] [address] Lymphocyte, Absolute 1.7 10 3/mcL Normal 0.8-3.9 [facility] ([place]) Comment on above: Performed By: #### H H, BMP, GFR #### [address] [address] Lymphocytes/100 WBC (Bld) 28.5 % Normal 10.0-50.0 [facility] ([place] Comment on above: Performed By: #### H H, BMP, GFR #### [address] [address] Monocyte, Absolute 0.4 10 3/mcL Normal 0.2-1.0 [facility] ([place]) Comment on above: Performed By: #### H H, BMP, GFR #### [address] [address] Monocytes/100 WBC (Bld) 7.1 % Normal 1.7-13.0 [facility] ([place] Comment on above: Performed By: #### H H BMP, GFR #### [address] [address] Neutrophils/100 WBC (Bld) 61.7 % Normal 37.0-80.0 [facility] ([place] Comment on above: Performed By: #### H H, BMP, GFR #### [address] [address] .GFRon 09-23-2022 GFR Non- 94 ml/min/1.73sqm Normal [facility] ([place] Comment on above: Result Comment: GFR Population [...] By: #### H H, BMP, GFR #### [address] [address] GFR 114 ml/min/1.73sqm Normal [facility] ([place] Comment on above: Result Comment: GFR Population [...] By: #### H H, BMP, GFR #### [place] [id number] .NEUABSon 09-23-2022 Neutrophil, Absolute 3.8 10 3/mcL Normal 2.9-6.2 [facility] ([place]) Comment on above: Performed By: #### H H, BMP, GFR #### [place] [phone] CBCon 09-23-2022 Erythrocyte distribution width (RBC) [Ratio] 13.4 % Normal 11.5-14.5 [facility] ([place] Comment on above: Performed By: #### H H, BMP, GFR #### [place] [address] Hematocrit (Bld) [Volume fraction] 42.7 % Normal 37.0-47.0 [facility] ([place] Comment on above: Performed By: #### H H, BMP, GFR #### [place] [address] Hgb 14.3 G/dL Normal 12.0-16.0 [facility] ([place] Comment on above: Performed By: #### H H, BMP, GFR #### [address] [address] MCH (RBC) [Entitic mass] 30.3 pg Normal 27.0-31.2 [facility] ([place] Comment on above: Performed By: #### H H, BMP, GFR #### [place] [address] MCHC 33.5 G/dL Normal 33.0-37.0 [facility] ([place] Comment on above: Performed By: #### H H, BMP, GFR #### [place] [phone] MCV (RBC) [Entitic vol] 90.4 fL Normal 80.0-94.0 [facility] ([place] Comment on above: Performed By: #### H H, BMP, GFR #### [address] [address] Platelet 250 10 3/mcL Normal 130-400 [facility] ([place] Comment on above: Performed By: #### H H, BMP, GFR #### [address] [address] Platelet mean volume (Bld) [Entitic vol] 7.8 fL Normal 7.4-10.4 [facility] ([place] Comment on above: Performed By: #### H H, BMP, GFR #### [address] [address] RBC 4.72 10 6/mcL Normal 4.20-5.40 [facility] ([place] Comment on above: Performed By: #### H H, BMP, GFR #### [address] [address] WBC 6.1 10 3/mcL Normal 4.6-10.8 [facility] ([place] Comment on above: Performed By: #### H H, BMP, GFR #### [address] [address] CMPon 09-23-2022 Albumin Level 3.7 G/dL Normal 3.4-4.8 [facility] ([place] Comment on above: Performed By: #### H H, BMP, GFR #### [address] [address] Albumin/Globulin [Mass ratio] 1.2 {ratio} Normal 1.1-2.5 [facility] ([place] Comment on above: Performed By: #### H H, BMP, GFR #### [address] [address] ALP [Catalytic activity/Vol] 127 U/L Normal 40-135 [facility] ([place] Comment on above: Performed By: #### H H, BMP, GFR #### [address] [address] ALT [Catalytic activity/Vol] 24 U/L Normal 14-59 [facility] ([place]) Comment on above: Performed By: #### H Pia BMP, GFR #### [address] [address] AST [Catalytic activity/Vol] 21 U/L Normal 10-40 [facility] ([place] Comment on above: Performed By: #### Pia Palacio BMP, GFR #### [address] [address] Bili Total 0.2 mg/dL Normal 0.2-1.0 [facility] ([place]) Comment on above: Result Comment: Use of this assay is not recommended for patients undergoing treatment with eltrombopag due to the potential for falsely elevated results. Performed By: #### Pia Palacio BMP, GFR #### [address] [address] BUN/Creatinine Ratio 18 ratio Normal 7-27 [facility] ([place]) Comment on above: Performed By: #### Pia Palacio BMP, GFR #### [address] [address] Calcium [Mass/Vol] 8.8 mg/dL Normal 8.4-10.2 [facility] ([place]) Comment on above: Performed By: #### Pia Palacio BMP, GFR #### [address] [address] Chloride [Moles/Vol] 98 mmol/L Normal 98-107 [facility] ([place]) Comment on above: Performed By: #### H Pia BMP, GFR #### [address] [address] CO2 [Moles/Vol] 32 mmol/L High 23-31 [facility] ([place]) Comment on above: Performed By: #### H H BMP, GFR #### [address] [address] Creatinine [Mass/Vol] 0.62 mg/dL Normal 0.55-1.02 [facility] ([place]) Comment on above: Performed By: #### H H BMP, GFR #### [address] [address] Electrolyte Balance 7.0 mEq/L Normal 4.0-15.0 [facility] ([place]) Comment on above: Performed By: #### Pia Palacio BMP, GFR #### [address] [address] Globulin 3.2 G/dL Normal [facility] ([place] Comment on above: Performed By: #### Pia Palacio BMP, GFR #### [address] [address] Glucose [Mass/Vol] 93 mg/dL Normal 83-110 [facility] ([place]) Comment on above: Performed By: #### Pia Palacio BMP, GFR #### [address] [address] Potassium [Moles/Vol] 4.7 mmol/L Normal 3.5-5.1 [facility] ([place]) Comment on above: Performed By: #### Pia Palacio BMP, GFR #### [address] [address] Sodium [Moles/Vol] 137 mmol/L Normal 136-145 [facility] ([place]) Comment on above: Performed By: #### Pia Palacio BMP, GFR #### [address] [address] Total Protein 6.9 G/dL Normal 6.4-8.2 [facility] ([place] Comment on above: Performed By: #### Pia Palacio BMP, GFR #### [address] [address] Urea nitrogen [Mass/Vol] 11 mg/dL Normal 7-18 [facility] ([place] Comment on above: Performed By: #### H Pia BMP, GFR #### [address] [address] XR CHEST 2 VIEWSon 3 XR CHEST [...] Date: 08/31/2022 9:00:53 AM Ordering Provider: MAKI GONSALEZ [facility] ([place]) XR CHEST 2 VIEWSon 3 XR CHEST [...] Date: 08/03/2022 9:09:42 AM Ordering Provider: MAURY CASTELLANOS [facility] ([place]) .GFRon 08-02-2022 GFR Non- >60 Normal [facility] ([place]) Comment on above: Result Comment: GFR Population [...] meters Performed By: #### P RO #### [address] [address] GFR >60 Normal [facility] ([place]) Comment on above: Result Comment: GFR Population [...] meters Performed By: #### P RO #### [address] [address] BMPon 08-02-2022 BUN/Creatinine Ratio 17.6 ratio Normal 10.0-22.0 [facility] ([place]) Comment on above: Performed By: #### P RO #### [address] [address] Calcium [Mass/Vol] 8.9 mg/dL Normal 8.7-10.4 [facility] ([place]) Comment on above: Performed By: #### P RO #### [address] [address] Chloride [Moles/Vol] 101 mmol/L Normal 98-110 [facility] ([place]) Comment on above: Performed By: #### P RO #### [address] [address] CO2 [Moles/Vol] 31 mmol/L Normal 22-32 [facility] ([place] Comment on above: Performed By: #### P RO #### [address] [address] Creatinine [Mass/Vol] 0.51 mg/dL Normal 0.50-1.20 [facility] ([place]) Comment on above: Performed By: #### P RO #### [address] [address] Electrolyte Balance 3.0 mEq/L Low 4.0-15.0 [facility] ([place] Comment on above: Performed By: #### P RO #### [address] [address] Glucose [Mass/Vol] 117 mg/dL High 82-115 [facility] ([place]) Comment on above: Performed By: #### P RO #### [address] [address] Potassium [Moles/Vol] 4.2 mmol/L Normal 3.5-5.0 [facility] ([place]) Comment on above: Result Comment: Spec imen slightly hemolyzed. Performed By: #### P RO #### [address] [address] Sodium [Moles/Vol] 135 mmol/L Low 136-145 [facility] ([place]) Comment on above: Performed By: #### P RO #### [address] [address] Urea nitrogen [Mass/Vol] 9.0 mg/dL Normal 8.0-22.0 [facility] ([place] Comment on above: Performed By: #### P RO #### [address] [address] LABORATORYOrdered By: SYSTEM SYSTEM on 08-02-2022 Calcium [Mass/Vol] 8.9 mg/dL Invalid Interpretation Code 8.7 - 10.4 mg/dL AH ADM SS Chloride [Moles/Vol] 101 mmol/L Invalid Interpretation Code 98 - 110 mEq/L AH ADM SS CO2 [Moles/Vol] 31 mmol/L Invalid Interpretation Code 22 - 32 mEq/L AH ADM SS Creatinine [Mass/Vol] 0.51 mg/dL Invalid Interpretation Code 0.50 - 1.20 mg/dL AH ADM SS Electrolyte Balance 3.0 mEq/L Invalid Interpretation Code 4.0 - 15.0 mEq/L AH ADM SS GFR/1.73 sq M.predicted among blacks MDRD (S/P/Bld) [Vol rate/Area] ml/min/1.73sqm Invalid Interpretation Code AH Chemistry S GFR/1.73 sq M.predicted among non-blacks MDRD (S/P/Bld) [Vol rate/Area] ml/min/1.73sqm Invalid Interpretation Code AH Chemistry S Glucose [Mass/Vol] 117 mg/dL Invalid Interpretation Code 82 - 115 mg/dL AH ADM SS Potassium [Moles/Vol] 4.2 mmol/L Invalid Interpretation Code 3.5 - 5.0 mEq/L AH ADM SS Comment on above: Result Comment: Spec imen slightly hemolyzed. Sodium [Moles/Vol] 135 mmol/L Invalid Interpretation Code 136 - 145 mEq/L AH ADM SS Urea nitrogen [Mass/Vol] 9.0 mg/dL Invalid Interpretation Code 8.0 - 22.0 mg/dL AH ADM SS Urea nitrogen/Creatinine [Mass ratio] 17.6 ratio Invalid Interpretation Code 10.0 - 22.0 ratio AH ADM SS LABORATORYOrdered By: Kinza Valdez on 07-29-2022 INR Coag (PPP) [Relative time] 1.5 {INR} Invalid Interpretation Code AO [facility] SS PT Coag (PPP) [Time] 17.7 s Invalid Interpretation Code 9.1 - 14.2 seconds AO [facility] SS PROon 07-29-2022 PT Coag (PPP) [Time] 17.7 s High 9.1-14.2 [facility] ([place]) Comment on above: Performed By: #### H H, BMP, GFR #### [address] [address] PT International Ratio 1.5 Normal [facility] ([place]) Comment on above: Result Comment: The [place] [employer] (CHEST, 1992, 102:312S-25S) recommended therapeutic range for oral anticoagulant therapy is: LOW RISK: Prophylaxis of venous thrombosis INR: 2.0-3.0 Treatment of pulmonary embolism 2.0-3.0 Prevention of systemic embolism 2.0-3.0 HIGH RISK: Mechanical prosthetic valves 2.5-3.5 Performed By: #### H H, BMP, GFR #### [place] [address] [place], [place] [address] LABORATORYOrdered By: Kinza Valdez on 07-23-2022 INR Coag (PPP) [Relative time] 2.3 {INR} Invalid Interpretation Code AO [facility] SS PT Coag (PPP) [Time] 27.2 s Invalid Interpretation Code 9.1 - 14.2 seconds AO [facility] SS PROon 07-23-2022 PT Coag (PPP) [Time] 27.2 s High 9.1-14.2 [facility] ([place]) Comment on above: Performed By: #### P RO #### [address] [address] PT International Ratio 2.3 Normal [facility] ([place]) Comment on above: Result Comment: [employer] [place] [employer] (CHEST, 1992, 102:312S-25S) recommended therapeutic range for oral anticoagulant therapy is: LOW RISK: Prophylaxis of venous thrombosis INR: 2.0-3.0 Treatment of pulmonary embolism 2.0-3.0 Prevention of systemic embolism 2.0-3.0 HIGH RISK: Mechanical prosthetic valves 2.5-3.5 Performed By: #### P RO #### [address] [address] .GFRon 07-22-2022 GFR 96 ml/min/1.73sqm Normal [facility] ([place] Comment on above: Result Comment: GFR Population [...] By: #### H H, BMP, GFR #### [address] [address] GFR Non- 79 ml/min/1.73sqm Normal [facility] ([place] Comment on above: Result Comment: GFR Population [...] By: #### H H, BMP, GFR #### [address] [address] BMPon 07-22-2022 BUN/Creatinine Ratio 12 ratio Normal 7-27 [facility] ([place]) Comment on above: Performed By: #### H H, BMP, GFR #### [address] [address] Calcium [Mass/Vol] 8.5 mg/dL Normal 8.4-10.2 [facility] to [facility] ([place]) Comment on above: Performed By: #### H H, BMP, GFR #### [address] [address] Chloride [Moles/Vol] 99 mmol/L Normal 98-107 [facility] ([place]) Comment on above: Performed By: #### H H, BMP, GFR #### [address] [address] CO2 [Moles/Vol] 29 mmol/L Normal 23-31 [facility] ([place] Comment on above: Performed By: #### H H, BMP, GFR #### [address] [address] Creatinine [Mass/Vol] 0.72 mg/dL Normal 0.55-1.02 [facility] ([place]) Comment on above: Performed By: #### H H, BMP, GFR #### [address] [address] Electrolyte Balance 9.0 mEq/L Normal 4.0-15.0 [facility] [facility] ([place] Comment on above: Performed By: #### H H BMP, GFR #### [address] [address] Glucose [Mass/Vol] 165 mg/dL High 83-110 Pending sale to [facility] ([place]) Comment on above: Performed By: #### H H BMP, GFR #### [address] [address] Potassium [Moles/Vol] 4.6 mmol/L Normal 3.5-5.1 [facility] ([place]) Comment on above: Performed By: #### H H BMP, GFR #### [address] [address] Sodium [Moles/Vol] 137 mmol/L Normal 136-145 Pending sale to [facility] ([place]) Comment on above: Performed By: #### H H, BMP, GFR #### [address] [address] Urea nitrogen [Mass/Vol] 9 mg/dL Normal 7-18 [facility] ([place]) Comment on above: Performed By: #### H H, BMP, GFR #### [address] [address] [facility]Hon 07-22-2022 Hematocrit (Bld) [Volume fraction] 29.2 % Low 37.0-47.0 [facility] ([place]) Comment on above: Performed By: #### H H, BMP, GFR #### [address] [place], [place] [address] Hgb 9.9 G/dL Low 12.0-16.0 [facility] ([place]) Comment on above: Performed By: #### H H, BMP, GFR #### [address] [place], [place] [address] LABORATORYOrdered By: SYSTEM SYSTEM on 07-22-2022 Calcium [...] Time Vital Sign Value Performing Clinician Facility 10-25-2024 14:37-0400 Body temperature 97.9 [degF] Savage Gilliam MD Work Phone: [facility] 10-25-2024 14:37-0400 Diastolic blood pressure 105 mm[Hg] Savage Gilliam MD Work Phone: [facility] 10-25-2024 14:37-0400 Heart rate 82 /min Savage Gilliam MD Work Phone: [facility] 10-25-2024 14:37-0400 Respiratory rate 16 /min Savage Gilliam MD Work Phone: 8(774)444-263160 [place] [address] 10-25-2024 14:37-0400 SaO2% (BldA) [Mass fraction] 97 % Savage Gilliam MD Work Phone: [facility] 10-25-2024 14:37-0400 Systolic blood pressure 150 mm[Hg] Savage Gilliam MD Work Phone: [facility] 10-25-2024 11:06-0400 Body mass index (BMI) [Ratio] 22.1 kg/m2 Savage Gilliam MD Work Phone: [facility] 10-23-2024 13:17-0400 Body height 154.94 cm Savage Gilliam MD Work Phone: [facility] 10-23-2024 13:17-0400 Body weight 53 kg Savage Gilliam MD Work Phone: [facility] 10-23-2024 01:00-0400 Diastolic blood pressure 96 mm[Hg] Savage Gilliam MD Work Phone: [facility] 10-23-2024 01:00-0400 Heart rate 70 /min Savage Gilliam MD Work Phone: [facility] 10-23-2024 01:00-0400 Respiratory rate 18 /min Savage Gilliam MD Work Phone: [facility] 10-23-2024 01:00-0400 SaO2% (BldA) [Mass fraction] 98 % Savage Gilliam MD Work Phone: 6(118)005-767260 [place] [address] 10-23-2024 01:00-0400 Systolic blood pressure 147 mm[Hg] Savage Gilliam MD Work Phone: 1(842)557-595896 [place] [address] 10-23-2024 00:00-0400 Body temperature 98.2 [degF] Savage Gilliam MD Work Phone: 3(325)061-964696 [place] [address] 10-22-2024 21:20-0400 Body mass index (BMI) [Ratio] 22.8 kg/m2 Savage Gilliam MD Work Phone: 8(919)650-855760 [place] [address] 10-22-2024 21:20-0400 Body weight 54.9 kg Savage Gilliam MD Work Phone: 8(597)774-523696 [place] [address] 10-22-2024 21:15-0400 Body height 154.94 cm Savage Gilliam MD Work Phone: 9(368)060-976996 [place] [address] 02-15-2024 14:59-0500 Body height 157.48 cm Savage Gilliam MD Work Phone: 6(237)832-767154 [address] 02-15-2024 14:59-0500 Body mass index (BMI) [Ratio] 23.2 kg/m2 Savage Gilliam MD Work Phone: 0(998)014-821296 [place] [address] 02-15-2024 14:59-0500 Body weight 57.6 kg Savage Gilliam MD Work Phone: [facility] 02-15-2024 14:59-0500 Diastolic blood pressure 70 mm[Hg] Savage Gilliam MD Work Phone: 6(801)545-785960 [place] [address] 02-15-2024 14:59-0500 Heart rate 53 /min Savage Gilliam MD Work Phone: [facility] 02-15-2024 14:59-0500 Respiratory rate 16 /min Savage Gilliam MD Work Phone: 5(740)952-120760 [place] [address] 01-08-2025 14:59-0500 Systolic blood pressure 116 mm[Hg] Savage Gilliam MD Work Phone: [facility] 02-07-2024 13:13-0500 Body temperature 97.8 [degF] Savage Gilliam MD Work Phone: [facility] 02-07-2024 13:13-0500 Diastolic blood pressure 72 mm[Hg] Savage Gilliam MD Work Phone: [facility] 02-07-2024 13:13-0500 Heart rate 45 /min Savage Gilliam MD Work Phone: [facility] 02-07-2024 13:13-0500 Respiratory rate 20 /min Savage Gilliam MD Work Phone: [facility] 02-07-2024 13:13-0500 SaO2% (BldA) [Mass fraction] 100 % Savage Gilliam MD Work Phone: [facility] 02-07-2024 13:13-0500 Systolic blood pressure 143 mm[Hg] Savage Gilliam MD Work Phone: [facility] 02-07-2024 09:05-0500 Body mass index (BMI) [Ratio] 23.7 kg/m2 Savage Gilliam MD Work Phone: [facility] 02-07-2024 09:05-0500 Body weight 58.9 kg Savage Gilliam MD Work Phone: [facility] 01-18-2024 08:38-0500 Body temperature 97.9 [degF] Savage Gilliam MD Work Phone: [facility] 01-18-2024 08:38-0500 Diastolic blood pressure 66 mm[Hg] Savage Gilliam MD Work Phone: [facility] 01-18-2024 08:38-0500 Heart rate 43 /min Savage Gilliam MD Work Phone: [facility] 01-18-2024 08:38-0500 Respiratory rate 16 /min Savage Gilliam MD Work Phone: [facility] 01-18-2024 08:38-0500 SaO2% (BldA) [Mass fraction] 96 % Savage Gilliam MD Work Phone: [facility] 01-18-2024 08:38-0500 Systolic blood pressure 151 mm[Hg] Savage Gilliam MD Work Phone: [facility] 01-17-2024 12:29-0500 Body mass index (BMI) [Ratio] 22.8 kg/m2 Savage Gilliam MD Work Phone: [facility] 01-17-2024 12:29-0500 Body weight 56.69 kg Savage Gilliam MD Work Phone: 5(094)621-097660 [place] [address] 12-31-2023 00:52-0500 Body temperature 97.8 [degF] Savage Gilliam MD Work Phone: 7(119)828-106960 [place] [address] 12-31-2023 00:52-0500 Diastolic blood pressure 82 mm[Hg] Savage Gilliam MD Work Phone: [facility] 12-31-2023 00:52-0500 Heart rate 51 /min Savage Gilliam MD Work Phone: [facility] 12-31-2023 00:52-0500 Respiratory rate 18 /min Savage Gilliam MD Work Phone: [facility] 12-31-2023 00:52-0500 SaO2% (BldA) [Mass fraction] 98 % Savage Gilliam MD Work Phone: [facility] 12-31-2023 00:52-0500 Systolic blood pressure 173 mm[Hg] Savage Gilliam MD Work Phone: [facility] 12-30-2023 21:31-0500 Body mass index (BMI) [Ratio] 24.2 kg/m2 Savage Gilliam MD Work Phone: [facility] 12-30-2023 21:31-0500 Body weight 60 kg Savage Gilliam MD Work Phone: 7(896)720-618060 [place] [address] 04-14-2023 14:50-0500 Diastolic blood pressure 80 mm[Hg] DR MIKE KEARNEY MD [address] [place] [address] 04-14-2023 14:50-0500 Heart rate 76 /min DR MIKE KEARNEY MD [address] [place] [address] 04-14-2023 14:50-0500 Respiratory rate 16 /min DR MIKE KEARNEY MD [address] [place] [address] 04-14-2023 14:50-0500 Systolic blood pressure 122 mm[Hg] DR MIKE KEARNEY MD [address] [place] [address] 04-14-2023 13:49-0500 Diastolic Blood Pressure Non-Invasive 80 mm[Hg] DR MIKE KEARNEY MD [address] [place] [address] 04-14-2023 13:49-0500 Heart rate 45 /min DR MIKE KEARNEY MD [address] [place] [address] 04-14-2023 13:49-0500 Respiratory rate 16 /min DR MIKE KEARNEY MD [address] [place] [address] 04-14-2023 13:49-0500 Systolic Blood Pressure Non-Invasive 120 mm[Hg] DR MIKE KEARNEY MD [address] [place] [address] 04-14-2023 13:42-0500 Diastolic Blood Pressure Non-Invasive 76 mm[Hg] DR MIKE KEARNEY MD [address] [place] [address] 04-14-2023 13:42-0500 Heart rate 60 /min DR MIKE KEARNEY MD [address] [place] [address] 04-14-2023 13:42-0500 Respiratory rate 16 /min DR MIKE KEARNEY MD [address] [place] [address] 04-14-2023 13:42-0500 Systolic Blood Pressure Non-Invasive 115 mm[Hg] DR MIKE KEARNEY MD [address] [place] [address] 04-14-2023 13:36-0500 Body temperature 98.6 [degF] DR MIKE KEARNEY MD [address] [place] [address] 04-14-2023 13:36-0500 Diastolic Blood Pressure Non-Invasive 66 mm[Hg] DR MIKE KEARNEY MD [address] [place] [address] 04-14-2023 13:36-0500 Heart rate 42 /min DR MIKE KEARNEY MD [address] [place] [address] 04-14-2023 13:36-0500 Systolic Blood Pressure Non-Invasive 114 mm[Hg] DR MIKE KEARNEY MD [address] [place] [address] 04-14-2023 13:35-0500 Heart rate 44 /min DR MIKE KEARNEY MD [address] [place] [address] 04-14-2023 13:35-0500 Respiratory Rate - Anes 0 br/min DR MIKE KEARNEY MD [address] [place] [address] 04-14-2023 13:30-0500 Respiratory Rate - Anes 0 br/min DR MIKE KEARNEY MD [address] [place] [address] 04-14-2023 13:25-0500 Respiratory Rate - Anes 27 br/min DR MIKE KEARNEY MD [address] [place] [address] 04-14-2023 12:44-0500 Body temperature 97.88 [degF] DR MIKE KEARNEY MD [address] [place] [address] 04-14-2023 12:44-0500 Body weight 24.51 kg/m2 DR MIKE KEARNEY MD [address] [place] [address] 04-14-2023 12:44-0500 Heart rate 88 /min DR MIKE KEARNEY MD [address] [place] [address] 04-11-2023 11:05-0500 Body height 157.5 cm ELADIO EDUARDO MD [facility] 04-11-2023 11:05-0500 Body temperature 96.8 [degF] ELADIO EDUARDO MD [facility] 04-11-2023 11:05-0500 Body weight 63 kg ELADIO EDUARDO MD [facility] 04-11-2023 11:05-0500 Diastolic Blood Pressure Non-Invasive 81 mm[Hg] ELADIO EDUARDO MD [facility] 04-11-2023 11:05-0500 Heart rate 74 /min ELADIO EDUARDO MD [facility] 04-11-2023 11:05-0500 Respiratory rate 20 /min ELADIO EDUARDO MD [facility] 04-11-2023 11:05-0500 Systolic Blood Pressure Non-Invasive 137 mm[Hg] ELADIO EDUARDO MD [facility] 01-21-2023 12:31-0500 Diastolic blood pressure 89 mm[Hg] Dr. Mariann Trent Work Phone: [facility] 01-21-2023 12:31-0500 SaO2% (BldA) [Mass fraction] 97 % Dr. Mariann Trent Work Phone: [facility] 01-21-2023 12:31-0500 Systolic blood pressure 145 mm[Hg] Dr. Mariann Trent Work Phone: [facility] 01-21-2023 10:05-0500 Heart rate 65 /min Dr. Mariann Trent Work Phone: [facility] 01-21-2023 09:03-0500 Body height 157.[address] Mariann Trent Work Phone: [facility] 01-21-2023 09:03-0500 Body mass index (BMI) [Ratio] 25.7 kg/m2 Dr. Mariann Trent Work Phone: [facility] 01-21-2023 09:03-0500 Body temperature 97.2 [degF] Dr. Mariann Trent Work Phone: [facility] 01-21-2023 09:03-0500 Body weight 63.[address] Mariann Trent Work Phone: [facility] 01-21-2023 09:03-0500 Respiratory rate 16 /min Dr. Mariann Trent Work Phone: [facility] 01-20-2023 15:00-0500 Heart rate 65 /min Dr. Mariann Trent Work Phone: [facility] 01-20-2023 14:58-0500 Body temperature 98.3 [degF] Dr. Mariann Trent Work Phone: [facility] 01-20-2023 14:58-0500 Diastolic blood pressure 89 mm[Hg] Dr. Mariann Trent Work Phone: [facility] 01-20-2023 14:58-0500 Respiratory rate 18 /min Dr. Mariann Trent Work Phone: [facility] 01-20-2023 14:58-0500 SaO2% (BldA) [Mass fraction] 94 % Dr. Mariann Trent Work Phone: [facility] 01-20-2023 14:58-0500 Systolic blood pressure 130 mm[Hg] Dr. Mariann Trent Work Phone: [facility] 01-15-2023 23:40-0500 Body height 157.[address] Mariann Trent Work Phone: [facility] 01-15-2023 23:40-0500 Body mass index (BMI) [Ratio] 24.5 kg/m2 Dr. Mariann Trent Work Phone: [facility] 01-15-2023 23:40-0500 Body weight 60.[address] Mariann Trent Work Phone: [facility] 01-15-2023 23:13-0500 Diastolic blood pressure 117 mm[Hg] [facility] 01-15-2023 23:13-0500 Systolic blood pressure 154 mm[Hg] [facility] 01-15-2023 22:06-0500 Heart rate 88 /min [facility] 01-15-2023 22:06-0500 Respiratory rate 18 /min [facility] 01-15-2023 22:06-0500 SaO2% (BldA) [Mass fraction] 96 % [facility] 01-15-2023 20:06-0500 Body height 157.48 cm [facility] 01-15-2023 20:06-0500 Body mass index (BMI) [Ratio] 26.5 kg/m2 [facility] 01-15-2023 20:06-0500 Body temperature 97.1 [degF] [facility] 01-15-2023 20:06-0500 Body weight 65.8 kg [facility] 07-25-2022 09:15-0400 Diastolic Blood Pressure Non-Invasive 84 1 INGA NBAANGELA AUTOMATION CONSULTANT-STEREOTYPE CASTER [facility] 07-25-2022 09:15-0400 Heart rate 79 /min INGANASH ARANGOANGELA AUTOMATION CONSULTANT-STEREOTYPE CASTER [facility] 07-25-2022 09:15-0400 Systolic Blood Pressure Non-Invasive 147 1 INGA NBAANGELA AUTOMATION CONSULTANT-STEREOTYPE CASTER [facility] 07-25-2022 07:38-0400 Body temperature 97.88 [degF] INGA MONTANEZ AUTOMATION CONSULTANT-STEREOTYPE CASTER [facility] 07-25-2022 07:38-0400 Diastolic Blood Pressure Non-Invasive 84 1 INGA MONTANEZ AUTOMATION CONSULTANT-STEREOTYPE CASTER [facility] 07-25-2022 07:38-0400 Heart rate 79 /min INGA MONTANEZ AUTOMATION CONSULTANT-STEREOTYPE CASTER [facility] 07-25-2022 07:38-0400 Respiratory rate 18 /min INGA MONTANEZ AUTOMATION CONSULTANT-STEREOTYPE CASTER [facility] 07-25-2022 07:38-0400 Systolic Blood Pressure Non-Invasive 147 1 INGA MONTANEZ AUTOMATION CONSULTANT-STEREOTYPE CASTER [facility] 07-25-2022 06:26-0400 Diastolic Blood Pressure Non-Invasive 96 1 INGA MONTANEZ AUTOMATION CONSULTANT-STEREOTYPE CASTER [facility] 07-25-2022 06:26-0400 Heart rate 84 /min INGA MONTANEZ AUTOMATION CONSULTANT-STEREOTYPE CASTER [facility] 07-25-2022 06:26-0400 Respiratory rate 18 /min INGA MONTANEZ AUTOMATION CONSULTANT-STEREOTYPE CASTER [facility] 07-25-2022 06:26-0400 Systolic Blood Pressure Non-Invasive 162 1 INGA MONTANEZ AUTOMATION CONSULTANT-STEREOTYPE CASTER [facility] 07-24-2022 19:43-0400 Body temperature 98.6 [degF] INGA MONTANEZ AUTOMATION CONSULTANT-STEREOTYPE CASTER [facility] 07-24-2022 19:43-0400 Reason For Taking VItal Signs INGA MONTANEZ AUTOMATION CONSULTANT-STEREOTYPE CASTER [facility] 07-24-2022 19:43-0400 Respiratory rate 20 /min INGA MONTANEZ AUTOMATION CONSULTANT-STEREOTYPE CASTER [facility] 07-24-2022 15:36-0400 Body temperature 97.88 [degF] INGA MONTANEZ AUTOMATION CONSULTANT-STEREOTYPE CASTER [facility] 07-24-2022 09:35-0400 Blood Pressure Location INGANASH MONTANEZ AUTOMATION CONSULTANT-STEREOTYPE CASTER [facility] 06-17-2023 09:35-0400 Blood Pressure Method INGA MONTANEZ AUTOMATION CONSULTANT-STEREOTYPE CASTER [facility] 07-24-2022 02:39-0400 Blood Pressure Cuff Size INGA MONTANEZ AUTOMATION CONSULTANT-STEREOTYPE CASTER [facility] 07-24-2022 02:39-0400 Blood Pressure Location INGA MONTANEZ AUTOMATION CONSULTANT-STEREOTYPE CASTER [facility] 07-24-2022 02:39-0400 Blood Pressure Method INGA MONTANEZ AUTOMATION CONSULTANT-STEREOTYPE CASTER [facility] 07-24-2022 02:39-0400 Heart rate 76 /min INGANASH MONTANEZ AUTOMATION CONSULTANT-STEREOTYPE CASTER [facility] 07-24-2022 02:39-0400 Reason For Taking VItal Signs INGA MONTANEZ AUTOMATION CONSULTANT-STEREOTYPE CASTER [facility] 07-23-2022 22:27-0400 Heart rate 78 /min INGANASH ROMERON AUTOMATION CONSULTANT-STEREOTYPE CASTER [facility] 07-23-2022 17:19-0400 Heart rate 68 /min INGA MONTANEZ AUTOMATION CONSULTANT-STEREOTYPE CASTER [facility] 07-23-2022 17:19-0400 Reason For Taking VItal Signs INGA MONTANEZ AUTOMATION CONSULTANT-STEREOTYPE CASTER [facility] 07-23-2022 05:13-0400 Body weight 57.4 kg INGA MONTANEZ AUTOMATION CONSULTANT-STEREOTYPE CASTER [facility] 07-22-2022 23:15-0400 Heart rate 72 /min INGANASH MONTANEZ AUTOMATION CONSULTANT-STEREOTYPE CASTER [facility] 07-22-2022 14:47-0400 Heart rate 81 /min INGANASH ROMERON AUTOMATION CONSULTANT-STEREOTYPE CASTER [facility] 07-22-2022 05:55-0400 Blood Pressure Location INGA MONTANEZ AUTOMATION CONSULTANT-STEREOTYPE CASTER [facility] 07-22-2022 05:55-0400 Blood Pressure Method INGA MONTANEZ AUTOMATION CONSULTANT-STEREOTYPE CASTER [facility] 07-21-2022 22:21-0400 Heart rate 76 /min INGA MONTANEZ AUTOMATION CONSULTANT-STEREOTYPE CASTER [facility] 07-19-2022 15:45-0400 Blood Pressure Cuff Size INGA MONTANEZ AUTOMATION CONSULTANT-STEREOTYPE CASTER [facility] 07-18-2022 15:34-0400 Blood Pressure Cuff Size INGA MONTANEZ AUTOMATION CONSULTANT-STEREOTYPE CASTER [facility] 07-16-2022 04:36-0400 Body weight 61.4 kg INGA MONTANEZ AUTOMATION CONSULTANT-STEREOTYPE CASTER [facility] 07-15-2022 18:25-0400 Body height 157.5 cm INGA MONTANEZ AUTOMATION CONSULTANT-STEREOTYPE CASTER [facility] 07-15-2022 18:25-0400 Body weight 65.2 kg INGA MONTANEZ AUTOMATION CONSULTANT-STEREOTYPE CASTER [facility] 07-15-2022 18:25-0400 Body weight 26.28 kg/m2 INGA MONTANEZ AUTOMATION CONSULTANT-STEREOTYPE CASTER [facility] Encounters Encounter Date Encounter Type Care Provider Facility Start: 11-29-2024 End: 11-29-2024 ambulatory Chalon Marina Facility:[facility] [place] [place] Start: 11-08-2024 End: 11-08-2024 ambulatory Chalon Marina Facility:[facility] Start: 10-25-2024 Non-patient / Non-visit Dr. Rosalva Ortez MD -[facility] Work Phone: Start: 10-24-2024 Non-patient / Non-visit Dr. Rosalva Ortez MD -[facility] Work Phone: Start: 10-23-[facility] Start: 10-23-2024 Non-patient / Non-visit Dr. William rizo MD -[facility] Start: 10-23-2024 End: 10-25-2024 Evaluation and management of inpatient Dr. Forrest Bonilla MD -Progressive Care Unit Work Phone: Start: 10-23-2024 ambulatory Forrest Bonilla Facility:[facility] Start: 10-23-2024 Non-patient / Non-visit Dr. Forrest newell MD -[facility] Work Phone: Start: 10-18-2024 End: 10-18-2024 ambulatory Savage Gilliam MD Work Phone: -Laboratory [facility] Start: 10-18-2024 End: 10-18-[address] Savage Gilliam MD -[facility] Start: 10-18-2024 End: 10-18-2024 ambulatory [facility] Facility:[facility] Start: 04-18-2024 Encounter for genera l adult medical examination without abnormal findings Rob Lieberman FINANCIAL ANALYSIS CONSULTANT [facility] Start: 04-05-2024 End: 04-05-2024 ambulatory Savage Gilliam MD Work Phone: [facility] Work Phone: Start: 04-05-2024 End: 04-05-2024 Patient encounter procedure Rob Lieberman FINANCIAL ANALYSIS CONSULTANT-C -[facility] Scan, [facility] Work Phone: Start: 04-05-2024 End: 04-05-2024 ambulatory Rob Tedow FINANCIAL ANALYSIS CONSULTANT Facility:[facility] Start: 02-15-2024 End: 02-15-[address] Kd Wolfe MD -[facility] Work Phone: Start: 02-15-2024 End: 02-15-2024 ambulatory Kd Wolfe Facility:[facility] Start: 02-07-2024 ambulatory Inés Shannanflavio Fa cility:[facility] Start: 02-07-2024 Non-patient / Non-visit Dr. Chel Sierra MD -[facility] Work Phone: Start: 02-07-2024 End: 02-07-[address] Jacob Morgan DO -Pulmonary Services/Neurology Work Phone: Start: 02-07-2024 End: 02-07-2024 Emergency department patient visit Dr. Jacob Morgan DO -Emergency Department Work Phone: Start: 02-07-2024 End: 02-07-2024 [facility] Start: 01-18-2024 Non-patient / Non-visit Dr. Shelbie Eddy MD -[facility] Work Phone: Start: 01-17-2024 Non-patient / Non-visit Dr. Shelbie Eddy MD -[facility] Work Phone: Start: 01-17-2024 End: 01-18-2024 ambulatory Sukumar Eddy Facility:[facility] Start: 01-17-2024 End: 01-18-2024 Evaluation and management of inpatient Dr. Sukumar Eddy MD -Medical Surgical 3 Work Phone: Start: 12-30-2023 End: 12-31-2023 Emergency department patient visit Dr. Ava Good DO -Emergency Department Work Phone: Start: 12-23-2023 End: 12-23-[address] Savage Gilliam MD -Laboratory, [facility] Start: 12-23-2023 End: 12-23-2023 ambulatory [facility] Facility:[facility] Start: 12-06-2023 End: 12-06-2023 Emergency department patient visit Herman Boogie Facility:[facility] Start: 07-21-2023 ambulatory CHELITA ROMERO AUTOMATION CONSULTANT-STEREOTYPE CASTER Facility:B Start: 04-14-2023 End: 04-14-2023 ambulatory NAINA JERNIGAN MD Facility:[facility] Start: 04-14-2023 End: 04-14-[address] MIKE KEARNEY MD [facility] Start: 04-11-2023 End: 04-11-2023 Emergency department patient visit ELADIO EDUARDO MD [facility] Start: 03-16-2023 ambulatory CHELITA ROMERO AUTOMATION CONSULTANT-STEREOTYPE CASTER Facility:A Start: 03-09-2023 End: 03-09-2023 ambulatory CHELITA GAMEZ AUTOMATION CONSULTANT-STEREOTYPE CASTER Facility:B Start: 03-09-2023 End: 03-09-[address] MIKE KEARNEY MD [facility] Start: 01-21-2023 End: 01-21-2023 Emergency department patient visit Dr. Mariann Trent Work Phone: [facility]-Emergency Department Work Phone: Start: 01-20-2023 Non-patient / Non-visit Dr. Claudia Trent Work Phone: [facility] Work Phone: Start: 01-19-2023 Non-patient / Non-visit Dr. Claudia Trent Work Phone: [facility] Work Phone: Start: 01-18-2023 Non-patient / Non-visit Dr. Claudia Trent Work Phone: [facility] Work Phone: Start: 01-17-2023 Non-patient / Non-visit Dr. Claudia Trent Work Phone: [facility] Work Phone: Start: 01-17-2023 Non-patient / Non-visit Dr. Claudia Trent Work Phone: [facility] Start: 01-16-2023 Non-patient / Non-visit Dr. Claudia Trent Work Phone: [facility] Work Phone: Start: 01-15-2023 End: 01-20-2023 Evaluation and management of inpatient [facility] 3 Work Phone: Start: 01-15-2023 observation encounter [facility] Work Phone: Start: 12-24-2022 End: 12-24-2022 ambulatory CHELITA GAMEZ AUTOMATION CONSULTANT-STEREOTYPE CASTER Facility:B Start: 12-24-2022 End: 12-24-2022 Patient encounter procedure CHELITA GAMEZ AUTOMATION CONSULTANT-STEREOTYPE CASTER [facility] Start: 11-29-2022 ambulatory CHELITA ROMERO AUTOMATION CONSULTANT-STEREOTYPE CASTER Facility:B Start: 09-23-2022 End: 09-23-2022 ambulatory CHELITA GAMEZ AUTOMATION CONSULTANT-STEREOTYPE CASTER Facility:B Start: 08-30-2022 End: 08-30-2022 ambulatory CHELITA GAMEZ AUTOMATION CONSULTANT-STEREOTYPE CASTER Facility:A Start: 08-02-2022 End: 08-02-2022 ambulatory CHELITA GAMEZ AUTOMATION CONSULTANT-STEREOTYPE CASTER Facility:[facility] Start: 08-02-2022 End: 08-02-2022 Patient encounter procedure MAURY CASTELLANOS MD [facility] Start: 07-29-2022 End: 07-29-2022 ambulatory CHELITA GAMEZ AUTOMATION CONSULTANT-STEREOTYPE CASTER Facility:[facility] Start: 07-29-2022 End: 07-29-2022 Patient encounter procedure CURTIS SULLIVAN AUTOMATION CONSULTANT-STEREOTYPE CASTER [facility] Start: 07-27-2022 End: 08-31-2022 ambulatory CHELITA GAMEZ AUTOMATION CONSULTANT-STEREOTYPE CASTER Facility:R Start: 07-22-[address] MIKE KEARNEY MD Facil ity:B Start: 07-15-2022 End: 07-25-2022 Evaluation and management of inpatient INGA MONTANEZ AUTOMATION CONSULTANT-STEREOTYPE CASTER [facility] Start: 04-28-2022 End: 04-28-2022 Patient encounter procedure PAT HALE AUTOMATION CONSULTANT-STEREOTYPE CASTER [facility] Start: 01-20-2022 End: 01-20-2022 Patient encounter procedure CHELITA GAMEZ AUTOMATION CONSULTANT-STEREOTYPE CASTER [facility] Start: 02-03-2021 End: 02-03-2021 Patient encounter procedure MARIANN TRENT MD [facility] Procedures Date Procedure Procedure Detail Performing Clinician Start: 10-25-2024 Estimated creatinine clearance Savage Gilliam MD Work Phone: Start: 10-23-2024 Magnetic resonance a ngiography of head without contrast Savage Gilliam MD Work Phone: Start: 10-23-2024 MRI of brain with contrast Savage Gilliam MD Work Phone: Start: 10-23-2024 MRI of neck vessels with contrast Savage Gilliam MD Work Phone: Start: 10-22-2024 Methadone measurement, urine Savage Gilliam MD Work Phone: Start: 10-22-2024 CT of head without contrast Savage Gilliam MD Work Phone: Start: 10-22-2024 X-ray of knee, four or more views Savage Gilliam MD Work Phone: Start: 10-22-2024 Estimated creatinine clearance Savage Gilliam MD Work Phone: Start: 10-18-2024 Urine microalbumin/c reatinine ratio measurement Savage Gilliam MD Work Phone: Start: 04-05-2024 CT of chest Savage ashley MD Work Phone: Start: 02-15-2024 Evaluation of [...] without contrast Start: 09-23-2022 Echocardiography BEATRIZ GAMEZ [employer] Comment on above: 1. Left ventricle: T [...] mm Hg. Start: 07-13-2022 Thoracentesis CHELITA GAMEZ [employer] Comment on above: LEFT FLUID REMOVED: 900 [...] 07-09-2022 Coronary artery bypass graft CHELITA GAMEZ [employer] Comment on above: 1. Median sternotomy and [...] leg. Start: 07-09-2022 Transesophageal echocardiography CHELITA GAMEZ AUTOMATION CONSULTANT-STEREOTYPE CASTER Comment on above: 1. Left ventricle: L [...] Measurement of respi ratory function CHELITA GAMEZ [employer] Comment on above: Normal Start: 07-04-2022 Coronary artery bypa ss grafts x 3 INGA MONTANEZ [employer] Comment on above: with aortic valve re placment Start: 07-02-2022 Angioplasty of artery E CARRINGTON GMAEZ [employer] Comment on above: Balloon angioplasty of the right renal artery stent with a 6 mm Akhil. Closure with Mynx Start: 07-01-2022 Cardiac catheterization CHELITA GAMEZ [employer] Comment on above: SUMMARY: 1. Left ventricle: [...] artery disease. Start: 06-29-2022 Cardiovascular stress testing CHELITA GAMEZ [employer] Comment on above: Suggestive moderate severity anterior/anterior lateral wall ischemia No evidence myocardial infarction, RAMP artifact calculated ejection fraction 60% with normal wall motion and thickening Start: 06-29-2022 Echocardiography BEATRIZ GAMEZ [employer] Comment on above: 1. Left ventricle: T [...] by duplex scan with spectrum analysis CHELITA GAMEZ APRNProgressionFORSY[facility] Comment on above: 1. The right vertebr al artery is patent with normal antegrade flow. 2. The left vertebral artery is patent with normal antegrade flow. 3. Mild 1-39% stenosis of the right internal carotid artery. 4. Moderate 40-59% stenosis of the left internal carotid artery. Start: 06-27-2022 Cardiovascular stress testing CHELITA GAMEZ AUTOMATION CONSULTANTProgressionSTEREOTYPE CASTER Comment on above: ECG portion of the L exiscan nuclear stress test is negative for inducible ischemia with decreased specificity due to LVH at baseline. Start: 04-28-2022 Echocardiography BEATRIZ GAMEZ AUTOMATION CONSULTANTProgressionSTEREOTYPE CASTER Comment on above: 1. Left ventricle: T [...] ECG with no obvious ECG evidence of OR at the HR achieved. LVEF 66% - [...] MD Start: 02-07-1995 Arthroscopy of knee AND [employer] Comment on above: left Start: 02-08-1984 Hemorrhoidectomy MARIANN TRENT MD Entire tonsils and a denoids (body structure) MARIANN TRENT MD History of hernia repair AND [employer] Hysterectomy MARIANN TRENT MD Stapedectomy MARIANN TRNET MD Vascular flow, funct ion (observable entity) [...] Treatment Date Care Activity Detail Author Start: 10-25-2024 Patient discharge [facility] Start: 10-25-2024 Referral to service [facility] Start: 10-23-2024 MR angiography of head with contrast MRA Head ONLY WITH Contrast [facility] Start: 10-23-2024 MRI of brain with contrast Brain W/WO Contrast [facility] Start: 10-23-2024 MRI of neck vessels MRA Neck WITH Contrast [facility] Start: 10-23-2024 Following clinical pathway protocol [facility] Start: 10-23-2024 Aspiration precautions [facility] Start: 10-23-2024 Assessment of risk of venous thromboembolism [facility] Start: 10-23-2024 Cardiac monitoring [facility] Start: 10-23-2024 Catheterization of vein [facility] Start: 10-23-2024 End: 10-23-2024 Consultation [facility] Start: 10-23-2024 Continuous pulse oximetry [facility] Start: 10-23-2024 Elevation of head of bed [facility] Start: 10-23-2024 Exercises [facility] Start: 10-23-2024 Insertion of catheter into peripheral vein [facility] Start: 10-23-2024 Measuring intake and output [facility] Start: 10-23-2024 Notification of physician [facility] Start: 10-23-2024 Oxygen therapy [facility] Start: 10-23-2024 Patient referral to dietitian [facility] Start: 10-23-2024 Providing care according to standard [facility] Start: 10-23-2024 Provision of activity privileges [facility] Start: 10-23-2024 Referral for physical therapy [facility] Start: 10-23-2024 Referral to occupational therapist [facility] Start: 10-23-2024 Referral to service [facility] Start: 10-23-2024 Speech therapy assessment [facility] Start: 10-23-2024 Tobacco use cessation education [facility] Start: 10-23-2024 End: 10-23-2024 [facility] Start: 10-23-2024 Vital signs measurements [facility] Start: 10-23-2024 Verification routine [facility] Start: 10-23-2024 Admission procedure [facility] Start: 10-22-2024 Hospital admission, emergency, from emergency room, medical nature [facility] Start: 02-07-2024 [facility] Start: 02-07-2024 [facility] Start: 01-18-2024 Patient discharge [facility] Start: 01-17-2024 Application of intermittent pneumatic compression device [facility] Start: 01-17-2024 Ambulation without limitation [facility] Start: 01-17-2024 Assessment of risk of venous thromboembolism [facility] Start: 01-17-2024 Insertion of catheter into peripheral vein [facility] Start: 01-17-2024 Providing care according to standard [facility] Start: 01-17-2024 Referral to occupational therapist [facility] Start: 01-17-2024 Referral to service [facility] Start: 01-17-2024 [facility] Start: 01-17-2024 Following clinical pathway protocol [facility] Start: 01-17-2024 Admission procedure [facility] Start: 12-30-2023 Consultation [facility] Start: 12-30-2023 [facility] Start: 01-21-2023 [facility] Start: 01-20-2023 Patient discharge [facility] Start: 01-20-2023 Referral to service [facility] Start: 01-16-2023 Referral to service [facility] Start: 01-16-2023 Blood chemistry [facility] Start: 01-16-2023 Prothrombin time [facility] Start: 01-16-2023 Thyroid stimulating hormone measurement [facility] Start: 01-16-2023 [facility] Start: 01-16-2023 Consultation [facility] Start: 01-15-2023 Following clinical pathway protocol [facility] Start: 01-15-2023 Documentation procedure [facility] Start: 01-15-2023 Assessment of risk of venous thromboembolism [facility] Start: 01-15-2023 Insertion of catheter into peripheral vein [facility] Start: 01-15-2023 Measuring intake and output [facility] Start: 01-15-2023 Providing care according to standard [facility] Start: 01-15-2023 Provision of activity privileges [facility] Start: 01-15-2023 Referral to occupational therapist [facility] Start: 01-15-2023 Referral to service [facility] Start: 01-15-2023 Verification routine [facility] Start: 01-15-2023 [facility] Start: 01-15-2023 End: 01-15-2023 Admission procedure [facility] Alanine aminotransfe rase [Enzymatic activity/volume] in Serum or Plasma [facility] Albumin [Mass/volume ] in Serum or Plasma [facility] Alkaline phosphatase [Enzymatic activity/volume] in Serum or Plasma [facility] Anion gap measurement [facility] Aspartate aminotrans ferase [Enzymatic activity/volume] in Serum or Plasma [facility] Bilirubin, total measurement [facility] Bilirubin.direct [Mass/volume] in Serum or Plasma [facility] BUN/Creatinine ratio [facility] Calcium [Mass/volume ] in Serum or Plasma [facility] Carbon dioxide, tota l [Moles/volume] in Serum or Plasma [facility] Chloride [Moles/volu me] in Serum or Plasma [facility] Creatinine [Moles/vo lume] in Serum or Plasma [facility] Glucose [Mass/volume ] in Serum or Plasma [facility] Hematocrit [Volume F raction] of Blood [facility] Hemoglobin [Mass/vol ume] in Blood [facility] INR in Blood by Coag ulation assay [facility] Leukocytes [#/volume ] in Blood [facility] Magnesium [Mass/volu me] in Serum or Plasma [facility] Mean corpuscular hem oglobin concentration determination [facility] Mean corpuscular hem oglobin determination [facility] Measurement of renal function [facility] Neutrophil count [facility] Neutrophil percent differential count [facility] Patient Education [facility] Work Phone: Patient referral [facility] Work Phone: Platelets [#/volume] in Blood [facility] Potassium [Moles/vol ume] in Serum or Plasma [facility] Red blood cell count [facility] Red cell distributio n width determination [facility] Sodium [Moles/volume ] in Serum or Plasma [facility] Total protein measurement [facility] Urea nitrogen [Mass/ volume] in Serum or Plasma [facility] Immunizations Immunization Date Immunization Notes Care Provider [facility] 11-10-2023 influenza, high dose seasonal, preservative-free Savage Gilliam MD Work Phone: [facility] 11-10-2023 Pfizer Covid-19 (Comirnaty) Savage Gilliam MD Work Phone: [facility] 01-28-2023 Pneumococcal conjuga te PCV20, polysaccharide [id number] conjugate, adjuvant, PF; Translations: [Prevnar 20] DR MIKE KEARNEY MD [facility] 11-19-2022 RSV vaccine preF3, recombinant CHELITA GAMEZ AUTOMATION CONSULTANT-STEREOTYPE CASTER [facility] 11-18-2022 Covid (Spikevax) [facility] 11-18-2022 SARS-CoV-2 (COVID-19 ) [facility]-[id number] ELADIO EDUARDO MD [facility] 11-10-2022 Influenza High-Dose Quadrivalent [facility] 11-10-2022 influenza virus vacc ine, unspecified formulation ELADIO EDUARDO MD [facility] 06-05-2022 zoster vaccine recombinant INGANASH ARANGONEN AUTOMATION CONSULTANT-STEREOTYPE CASTER [facility] 03-11-2022 varicella virus vaccine AUGIE Y YESIO AUTOMATION CONSULTANT-STEREOTYPE CASTER [facility] 03-11-2022 zoster vaccine recombinant INGA BNANEN AUTOMATION CONSULTANT-STEREOTYPE CASTER [facility] 01-14-2022 Covid Pfizer Bivalen t Booster [facility] 01-14-2022 influenza virus vacc ine, unspecified formulation INGA NBAANGELA AUTOMATION CONSULTANT-STEREOTYPE CASTER [facility] 01-14-2022 Seasonal, quadrivale nt, recombinant, injectable influenza vaccine, preservative free [facility] 11-26-2020 SARS-CoV-2 mRNA (tozinameran) vaccine MARIANN TRENT MD [facility] 05-20-2020 SARS-CoV-2 mRNA (tozinameran) vaccine MARIANN TRENT MD [facility] 04-29-2020 SARS-CoV-2 mRNA (tozinameran) vaccine MARIANN TRENT MD [facility] 12-19-2019 influenza, injectabl e, quadrivalent, preservative free; Translations: [Fluarix PF Quadrivalent ] MARIANN TRENT MD [facility] 12-29-2018 influenza, injectabl e, quadrivalent, preservative free; Translations: [Fluarix PF Quadrivalent ] MARIANN TRENT MD [facility] 10-19-2016 influenza virus vacc ine, unspecified formulation MARIANN TRENT MD [facility] 10-19-2016 influenza, injectabl e, quadrivalent, preservative free [facility] 10-22-2015 influenza virus vacc ine, unspecified formulation MARIANN TRENT MD [facility] 10-22-2015 influenza, seasonal, injectable, preservative free Savage Gilliam MD Work Phone: [facility] 10-22-2015 Seasonal, quadrivale nt, recombinant, injectable influenza vaccine, preservative free [facility] 12-18-2014 influenza virus vacc ine, unspecified formulation MARIANN TRENT MD [facility] 12-18-2014 influenza, seasonal, injectable, preservative free Savage Gilliam MD Work Phone: [facility] 12-18-2014 Seasonal, quadrivale nt, recombinant, injectable influenza vaccine, preservative free [facility] 07-23-2014 pneumococcal conjuga te vaccine, 13 valent MARIANN TRENT MD [facility] 12-19-2013 influenza virus vacc ine, unspecified formulation MARIANN TRENT MD [facility] 12-19-2013 influenza, injectabl e, quadrivalent, preservative free [facility] 10-01-2011 tetanus toxoid, redu doug diphtheria toxoid, and acellular pertussis vaccine, adsorbed MARIANN TRENT MD [facility] Payers Date Payer Category Payer Self-pay 2022 Private Health Insurance [id number] 2009 Unknown [id number] 1950 Unknown [id number] 2.16.840.1.383991.3.579.2. 1950 Unknown [id number] 2.16.840.1.690795.3.579.2. 1950 Unknown [id number] 2.16.840.1.455191.3.579.2. 1949 Unknown [id number] 2.16.840.1.699305.3.579.2.62 1949 Unknown [id number] 2.16.840.1.972448.3.579.2. 1949 Unknown [id number] 2.16.840.1.110542.3.579.2.62 1949 Unknown [id number] 2.16.840.1.220206.3.579.2.62 1949 Unknown [id number] 2.16.840.1.712341.3.579.2.62 1949 Unknown [id number] 2.16.840.1.279006.3.579.2. 1949 Unknown [id number] 2.16.840.1.017057.3.579.2.62 1949 Unknown [id number] 2.16.840.1.289661.3.579.2.62 1950 Unknown [id number] 2.16.840.1.591163.3.579.2.627 Medicaid MEDICAID [place] [id number] Medicare MEDICARE PART A B [id number] Unknown [id number] 2.16.840.1.469365.3.579.2.462 Unknown [id number] 2.16.840.1.257777.3.579.2.462 Unknown [id number] 2.16.840.1.734914.3.579.2.462 Unknown [id number] 2.16.840.1.157684.3.579.2.462 Unknown [id number] 2.16.840.1.276528.3.579.2.462 Unknown [id number] 2.16.840.1.522493.3.579.2.462 Unknown [id number] 2.16.840.1.144227.3.579.2.462 Unknown [id number] 2.16.840.1.302613.3.579.2.462 Unknown [id number] 2.16.840.1.369835.3.579.2.462 Unknown [id number] 2.16.840.1.766100.3.579.2.462 Unknown [id number] 2.16.840.1.002711.3.579.2.462 Unknown [id number] 2.16.840.1.983271.3.579.2.462 Unknown [id number] 2.16.840.1.343805.3.579.2.462 Unknown [id number] 2.16.840.1.722569.3.579.2.462 Unknown [id number] 2.16.840.1.908188.3.579.2.462 Unknown [id number] 2.16.840.1.451816.3.579.2.462 Unknown [id number] 2.16.840.1.826652.3.579.2.462 Unknown [id number] 2.16.840.1.868698.3.579.2.462 Unknown [id number] 2.16.840.1.217568.3.579.2.462 Social History Date Type Detail Facility Start: 12-29-2018 End: 04-14-2023 Heavy tobacco smoker (finding) [facility] Start: 1950 Sex Assigned At Female A [facility] Start: 06-27-2022 Tobacco smoking status Ex-smoker (fi nding) [facility] Start: 01-15-2023 End: 01-21-2023 Tobacco smoking status NHIS Unknown if ever smoked [facility] Start: 02-18-2023 End: 10-25-2024 Tobacco smoking status Light tobacco smoker (finding) [facility] Start: 02-13-2023 Cigarettes Cigarettes [facility] Start: 04-18-2024 Sex Female (finding) [facility] Sex Female [facility] Goals Date Patient Goal Desired Activity /State Functional Status Date Assessment Result Facility 10-25-2024 Functional status Ambulates [facility] Work Phone: 01-18-2024 Functional status Bathroom Privilege [facility] Work Phone: 04-14-2023 Functional Status Minimum assistance [facility] 04-14-2023 Functional Status Patient Identi fied Identification band, Verbal [facility] 04-14-2023 Functional Status Identified as high risk, Fall ID band on, Room located near nursing station, Non-Slip footwear [facility] 04-11-2023 Functional Status Activity Assistance Ind ependent [facility] 01-20-2023 Functional status Up ad deng;Chair [facility] Work Phone: 07-25-2022 Functional Status Room check performed [facility] 07-25-2022 Functional Status Faby Chauhan [facility] 07-25-2022 Functional Status Activity Status ADL Sle eping [facility] 07-25-2022 Functional Status Faby Chauhan [facility] 07-25-2022 Functional Status Faby Chauhan [facility] 07-24-2022 Functional Status Faby Chauhan [facility] 07-24-2022 Functional Status Faby Chauhan [facility] 07-24-2022 Functional Status Faby Chauhan [facility] 07-23-2022 Functional Status Dinner Percent 95 [facility] 07-23-2022 Functional Status Independent Faby [facility] 07-23-2022 Functional Status Gathering clot juan and making bed this date. Pt reachign in all planes and education on sternal precautions during reaching. Pt with SUP overall using fww. Seated rest break following 3 minutes. [facility] 07-23-2022 Functional Status flight Faby Chauhan [facility] 07-23-2022 Functional Status Assistive Device Walker [facility] 07-22-2022 Functional Status Faby Chauhan [facility] 07-21-2022 Functional Status Faby Chauhan [facility] 07-21-2022 Functional Status Faby Chauhan [facility] 07-21-2022 Functional Status SCD On/Re-appl ied bilateral knee high [facility] 07-20-2022 Functional Status Faby Chauhan [facility] 07-20-2022 Functional Status Supervised Faby Chauhan [facility] 07-20-2022 Functional Status Faby Chauhan [facility] 07-20-2022 Functional Status Faby Chauhan [facility] 07-19-2022 Functional Status Faby Chauhan [facility] 07-19-2022 Functional Status [facility] Functional Status [facility]-18-2022 Functional Status [facility]18-[facility]22 Functional Status Faby Chauhan [facility] 07-16-2022 Functional Status Mobile home Faby Chauhan [facility] 07-16-2022 Functional Status Done Faby Chauhan [facility] 07-16-2022 Functional Status Min A Faby [facility] 07-15-2022 Functional Status Sensory Deficits None A [facility] Mental Status Date Assessment Result Facility 10-25-2024 Cognitive function Voice/Name [facility] Work Phone: 10-22-2024 Cognitive function Level Of Cons ciousness Awake;Alert;Appropriate;Follow s Commands [facility] Work Phone: 02-07-2024 Cognitive function Level Of Cons ciousness Awake;Alert;Appropriate;Follow s Commands [facility] Work Phone: 01-18-2024 Cognitive function Voice/Name [facility] Work Phone: 12-30-2023 Cognitive function Level Of Cons ciousness Awake;Alert;Appropriate;Follow s Commands [facility] Work Phone: 04-14-2023 Mental Status Orientation Oriented x 4 [facility] 04-14-2023 Mental Status [facility] 04-11-2023 Mental Status Orientation Oriented x 4 [facility] 01-21-2023 Cognitive function Level Of Cons ciousness Awake;Alert;Appropriate;Follow s Commands [facility] Work Phone: 01-20-2023 Cognitive function Voice/Name [facility] Work Phone: 01-19-2023 Cognitive function Appropriate;Cooperativ e [facility] Work Phone: 07-25-2022 Mental Status Oriented x 4 [facility] 07-24-2022 Mental Status [facility] 07-24-2022 Mental Status [facility] Clinical Notes 01-20-2022 to 10-25-2024 Note Date & Type Note Facility 10-25-2024 Discharge summary [facility] 10-25-2024 Consult note Note Date/Time October 25, 2024 1:10pm [facility] Medical Records Department [address] [place] [address] Counseling Note - Pharmacy 10/25/24 1309 MR#: [id number] Acct: [id number] Name: MARK MARTIN Rep #:[id number] : 1950 74 From: Nathan ibrahim PCP: Dr. Savage Gilliam MD Status:ADM IN Location: [place] [address] Pharmacy [facility] has performed discharge medication counseling for this patient. The patient was counseled on the following discharge medications and changes in medications for homegoing review. - Warfarin 6 mg daily. Increasing dose from 4 mg daily. The Reason for Use, instructions for use, and potential side effects were reviewed for all new medications. The patient's questions regarding all of their medications were answered. The patient was able to verbally demonstrate an understanding of their dischargemedications. Medications at Discharge Home Medications multivitamin (Daily Multi-Vitamin tablet) 1 tab PO DAILY vitamin 02/11/23 aspirin 81 mg chewable tablet 81 mg PO BREAKFAST heart health #1 TAB 02/13/23 amlodipine 10 mg tablet 10 mg PO QDAY blood pressure 01/19/24 atorvastatin 40 mg tablet 40 mg PO QHS cholesterol 02/15/24 carbamazepine 200 mg tablet 400 mg PO Q12H seizures 02/15/24 valsartan 160 mg tablet 160 mg PO BID blood pressure #180 tabs 04/08/24 carvedilol 25 mg tablet 25 mg PO BID blood pressure #180 tabs 06/13/24 hydralazine 100 mg tablet 100 mg PO TID blood pressure #270 TABLETS 06/14/24 warfarin 6 mg tablet 6 mg PO DAILY #30 tabs 10/25/24 10/25/24 1310 <Electronically signed by Nathan Jin> Date _ Nathan James Dioncharlene Rollins Signature (if applicable): Date CC: ~ Signed [facility] Work Phone: [phone]) 762-350609-18-2025 Discharge summary Author [place] [facility] Note Date/Time October 25, 2024 12:31pm [facility] Medical Records Department [address] [place] [address] Instructions for Home/Discharge Instructions 10/25/24 1229 MR#: [id number] Acct: [id number] Name: MARK MARTIN Rep #:[id number] : 1950 74 From: Rosalva Ortez MD PCP: Dr. Savage Gilliam MD Status:ADM IN Discharge Instructions DC O2, CPAP, BIPAP needs Home O2 Discharge instructions: No Dressing / Incision Discharge Activity: Return to Normal Activity Weight Bearing Status: Weight bearing as tolerated Dressing / Incision Call your doctor if you observe: Fever of 101 or Higher, Shortness of breath, Dizziness, Swelling in the ankles and Chest pain Follow Up Care Test Results: Test results from this visit will be discussed in further detail at your follow- up appointment, if applicable. Discharge Plan Admission Admit Date/Time: 10/23/24 00:15 Primary Reason for Your Visit: acute CVA Attending Provider: Rosalva Ortez Primary Care Provider: Savage Gilliam Consulting Providers: Forrest Bonilla Instructions Patient Instructions: Booklet - Understanding Stroke Discharge Orders/Prescriptions Prescriptions: New warfarin 6 mg tablet 6 mg PO DAILY Qty: 30 2RF Continued amlodipine 10 mg tablet 10 mg PO QDAY Patient Comments: takes at 0600 atorvastatin 40 mg tablet 40 mg PO QHS carbamazepine 200 mg tablet 400 mg PO Q12H Patient Comments: takes at 0600 and 1800 multivitamin [Daily Multi-Vitamin] Tablet 1 tab PO DAILY Patient Comments: takes at 1200 aspirin 81 mg Tablet,Chewable 81 mg PO BREAKFAST Qty: 1 0RF Patient Comments: takes at 0600 valsartan 160 mg tablet 160 mg PO BID Qty: 180 3RF Patient Comments: takes at 0600 and 1800 carvedilol 25 mg tablet 25 mg PO BID Qty: 180 3RF Patient Comments: takes at 0600 and 1800 hydralazine 100 mg tablet 100 mg PO TID Qty: 270 3RF Patient Comments: takes at 0600, 1800, and 0000 Discontinued warfarin 4 mg tablet 4 mg PO DAILY Patient Comments: takes at 1800 Referrals / Follow Up: Savage Gilliam MD [Primary Care Provider, Family Practice] - 11/01/24 10:30 am Familia Hurst MD [Non-Staff -Ordering Privileges, Neurology] - Within 2 Weeks Referral Note: see to establish care for stroke Disposition Disposition (needs filled in before D/C Order can be placed): Home Health Service 10/25/24 1230<Electronically signed by Rosalva Ortez MD>Rosalva Ortez MD CC: Dr. Savage Gilliam MD; Dr. Forrest Bonilla MD ~ Signed ADDENDUM by Dr. Rosalva Ortez MD on 10/25/24 at 1231 To follow-up with PCP within 1 week for INR to be checked and for Coumadin dose to be adjusted as needed. Coumadin increased 6 mg daily. Counseled that she will need very close monitoring of her Coumadin levels. 10/25/24 1231<Electronically signed by Rosalva Ortez MD>Rosalva Ortez MD cc: Dr. Savage Gilliam MD; Dr. Forrest Bonilla MD ~* Signed [facility] Work Phone: 1(424) 206-946009-18-2025 Discharge summary Author Rosalva [facility] Note Date/Time October 25, 2024 3:23pm [facility] Medical Records Department [address] [place] [address] Discharge Summary 10/25/24 1230 MR#: [id number] Acct: [id number] Name: MARK MARTIN Rep #:[id number] : 1950 74 From: Rosalva Ortez MD PCP: Dr. Savage Gilliam MD Status:ADM IN Location: [place] [id number] Providers Date of Admission: 10/23/24 Date of Discharge: 10/25/24 Primary Care Physician: Savage Gilliam MD Consultations 10/23/24 01:42 Consult: Tele-Neurology Routine Consulting Provider: [facility] Reason for Consult: Acute Ischemic Stroke/TIA EMERGENT Consult: No MD Notified: Yes Date Notified: 10/23/24 Time Notified: 01:43 Method of Notification: Answering Service Method of Consult:: Telemedicine Nursing Unit Staff Notify [facility] of Tele-Neurology Consult: Yes Reason For Visit: ACUTE ISCHEMIC STROKE Diagnosis Discharge Diagnosis (1) Subtherapeutic anticoagulation: Status: Acute Code(s): Z51.81 - Encounter for therapeutic drug level monitoring; 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 * CT of the brain that showed acute infarct of the right anterior temporal lobe and evidence of old lacunar infarcts. * MRI of the brain done showed possible subacute lacunar infarct of the posterior limb of the left internal capsule with chronic encephalomalacia and gliosis in the anterior right temporal lobe with no superimposed acute component right temporal infarct being new since 01/17/2024 * Has a history of A-fib and is on Coumadin. She claims compliance but INR is therapeutic and is 1.3 today. Being bridged with Lovenox; continue Coumadin. Counseled on compliance. * PT OT on board. Fall precautions. * BP meds held for the first 24 hours to allow for permissive hypertension * PT/OT on board and high intensity statin. * 2D echo showed severe left ventricular hypertrophy with EF of 60% and normal left ventricular systolic function with stage I diastolic dysfunction. Also had mild mitral valve stenosis and left atrium is severely enlarged. #Hyperlipidemia: On high intensity statin #Atrial fibrillation: On carvedilol. On Coumadin with subtherapeutic INR. INR is 1.3 today. Coumadin being bridged with Lovenox #Chronic left lower extremity weakness: * Does have a history of left knee arthroplasty and has had the weakness since then. * PT OT on board. #Depression: On carbamazepine #Nicotine dependence: Counseled to quit #Hypertension: On amlodipine and losartan as well as carvedilol #COPD: Not in exacerbation. Breathing treatments with bronchodilators. DVT prophylaxis: anticoagulated as stated above on coumadin with lovenox bridging. INR today is 1.3. Medications at Discharge Home Medications multivitamin (Daily Multi-Vitamin tablet) 1 tab PO DAILY vitamin 02/11/23 aspirin 81 mg chewable tablet 81 mg PO BREAKFAST heart health #1 TAB 02/13/23 amlodipine 10 mg tablet 10 mg PO QDAY blood pressure 01/19/24 atorvastatin 40 mg tablet 40 mg PO QHS cholesterol 02/15/24 carbamazepine 200 mg tablet 400 mg PO Q12H seizures 02/15/24 valsartan 160 mg tablet 160 mg PO BID blood pressure #180 tabs 04/08/24 carvedilol 25 mg tablet 25 mg PO BID blood pressure #180 tabs 06/13/24 hydralazine 100 mg tablet 100 mg PO TID blood pressure #270 TABLETS 06/14/24 warfarin 6 mg tablet 6 mg PO DAILY #30 tabs 10/25/24 Hospital Course Operations None Procedures 2-D Echocardiogram Summary of Care Provided Minutes Spent on Discharge: 45 Hospital Course: Patient is a 74-year-old female with past medical history as outlined was admitted to the ED on 10/23/2024 with complaint of left lower extremity weakness. She was shopping with her son at [employer] and started having the left lowerextremity weakness. She says she had had a fall about 3 months after she had a left knee arthroplasty so she did not take much of it until her son brought her in. She had a history of a stroke about 25 years ago but did not have any significant residual neurologic defects. She also had a history of aortic valvereplacement with bioprosthetic aortic valve and was on Coumadin. She claims compliance with her Coumadin. By the time she came into the ED her symptoms hadlargely resolved. CT of the brain showed acute infarct in the right anterior temporal lobe and no acute hemorrhage or mass effects. She was admitted to be managed for stroke. Neurology was consulted. MRI of the brain showed a possible subacute lacunar infarct of the posterior limb of the left internal capsule with chronic encephalomalacia and gliosis in the anterior right temporallobe with no superimposed acute component. Her INR was subtherapeutic and was 1.2 on admission. Neurology was consulted as stated. 2D echo showed severe left ventricular hypertrophy with EF of 60% and normal left ventricular systolicfunction with stage I diastolic dysfunction and also mild mitral valve stenosis and severely enlarged left atrium. She was bridged with Lovenox until her INR was 1.9. She worked with therapy and did well. She was discharged home with home health on 10/25/2024. Her Coumadin dose was increased to 6 mg daily. She was counseled to follow-up within a week with her PCP for INR to be checked and Coumadin dose adjusted as needed. She was counseled strongly to be very compliant with her Coumadin and to watch her diet pulse on Coumadin and avoid dark green leafy vegetables as they could interfere with her INR. She is follow-up with her primary care doctor and was also placed on aspirin. She is to follow-up with neurology within 1 month on outpatient basis. Patient seen and examined prior to discharge. She had no complaints and felt well. She had an uneventful night. Review of systems otherwise negative. Labsand vitals reviewed. Home medication reviewed and reconciled. Physical Exam Const alert, oriented x3, no apparent distress and well nourished General Appearance: cooperative, comfortable and well developed HEENT normocephalic, head/scalp atraumatic, hearing grossly normal bilaterally, moist oral mucous membranes and oropharynx normal Mouth: oral and palatal mucosa normal Eyes PERRL and EOMs intact bilaterally Neck no lymphadenopathy, supple and no JVD Lymph Lymphatic: no lymphadenopathy noted and no lymphedema noted Resp normal respiratory effort, normal air movement and clear to auscultation bilaterally Cardio regular rate, regular rhythm, S1 normal heart sound and S2 normal heart sound Rhythm: abnormal rhythm irregularly irregular Heart Sounds: murmur systolic GI normal to inspection, nondistended, normoactive bowel sounds, soft to palpation,non-tender and non-distended Extremity normal capillary refill, no clubbing, cyanosis or edema and no calf tenderness General Extremity: no tenderness to palpation of joints or extremities Skin no rashes or lesions noted General Skin Exam: no breakdown and turgor normal Neuro oriented x3, CN's II-XII intact bilaterally, moves all extremities and no sensory deficits noted Neuro Narrative: Slight weakness in left leg as compared to right Motor Exam: strength 5/5 throughout Psych thought process normal, cooperative and affect normal Appearance: appropriate Weight / BMI Weight Weight: 116 lb 13.52 oz Body Mass Index (BMI) 22.1 ABG / Lab / Microbiology Data 10/25/24 05:08 10/25/24 05:08 Laboratory: Laboratory Results - last 24 hr 10/25/24 05:08: WBC 7.4, RBC 4.40, Hgb 14.2, Hct 40.9, MCV 93.0, MCH 32.3 H, MCHC 34.7, RDW Std Deviation 43.3, RDW Coeff of Geena 12.6, Plt Count 179, MPV 10.3, Immature Gran % (Auto) 0.400, Neut % (Auto) 57.2, Lymph % (Auto) 31.9, Fannin % (Auto) 9.3, Eos % (Auto) 0.4, Baso % (Auto) 0.8, Absolute Neuts (auto) 4.2, Absolute Lymphs (auto) 2.36, Nucleated RBC % 0, PT 22.0 H, INR 1.9, Sodium 139, Potassium 3.4, Chloride 103, Carbon Dioxide 23.3, Anion Gap 12, BUN 16, Creatinine 0.48 L, Estim Creat Clear Calc 45.85 L, Est GFR (MDRD) Non-Af 99, BUN/Creatinine Ratio 32.2 H, Glucose 119 H, Calcium 9.2 D/C Instructions Discharge Activity: Return to Normal Activity Weight Bearing Status: Weight bearing as tolerated Call your doctor if you observe: Fever of 101 or Higher, Shortness of breath, Dizziness, Swelling in the ankles and Chest pain DC O2, CPAP, BIPAP Needs Home O2 Discharge instructions: No DC home with Oxygen: No Meaningful Use Info Meaningful Use Meaningful Use Diagnoses (Choose all that apply): Ischemic CVA CVA Therapy Assessed for PT,OT and/or ST?: Yes Ischemic Stroke Antithrombotic order at d/c?: Yes Dx of Atrial fib/flutter?: Yes Anticoagulant at discharge?: Yes Statins at discharge?: Yes Primary Dx Acute Ischemic CVA?: Yes IV thrombolytic ordered during stay?: No Reason IV thrombolytic not ordered: Treatment not Indicated Discharge Plan Admission Admit Date/Time: 10/23/24 00:15 Primary Reason for Your Visit: acute CVA Attending Provider: Rosalva Ortez Primary Care Provider: Savage Gilliam Consulting Providers: Forrest Bonilla Instructions Patient Instructions: Booklet - Understanding Stroke Discharge Orders/Prescriptions Prescriptions: New warfarin 6 mg tablet 6 mg PO DAILY Qty: 30 2RF Continued amlodipine 10 mg tablet 10 mg PO QDAY Patient Comments: takes at 0600 atorvastatin 40 mg tablet 40 mg PO QHS carbamazepine 200 mg tablet 400 mg PO Q12H Patient Comments: takes at 0600 and 1800 multivitamin [Daily Multi-Vitamin] Tablet 1 tab PO DAILY Patient Comments: takes at 1200 aspirin 81 mg Tablet,Chewable 81 mg PO BREAKFAST Qty: 1 0RF Patient Comments: takes at 0600 valsartan 160 mg tablet 160 mg PO BID Qty: 180 3RF Patient Comments: takes at 0600 and 1800 carvedilol 25 mg tablet 25 mg PO BID Qty: 180 3RF Patient Comments: takes at 0600 and 1800 hydralazine 100 mg tablet 100 mg PO TID Qty: 270 3RF Patient Comments: takes at 0600, 1800, and 0000 Discontinued warfarin 4 mg tablet 4 mg PO DAILY Patient Comments: takes at 1800 Referrals / Follow Up: Savage Gilliam MD [Primary Care Provider, Family Practice] - 11/01/24 10:30 am Familia Hurst MD [Non-Staff -Ordering Privileges, Neurology] - Within 2 Weeks Referral Note: see to establish care for stroke Disposition Disposition (needs filled in before D/C Order can be placed): Home Health Service Charges/Coding Visit Charges Inpatient E&M: 08127 Disch Hosp >30min 10/25/24 1523 <Electronically signed by Rosalva Ortez MD> Cosigner Signature (if applicable): CC: Dr. Savage Gilliam MD; Dr. Rosalva Ortez MD~ Signed [facility] Work Phone: 1(802) 517-732309-18-2025 Hospital Discharge instructionsAdditional Instructions Date of Discharge: 10/25/24[facility] Work Phone: 1(349) 308-473809-18-2025 Consult note [facility] Medical Records Department [address] [place] [address] Counseling Note - Pharmacy 10/25/24 1309 MR#: [id number] Acct: [id number] Name: MARK MARTIN Rep #:[id number] : 1950 74 From: Nathan ibrahim PCP: Dr. Savage Gilliam MD Status:ADM IN Location: [address] [facility] has performed discharge medication counseling for this patient. The patient was counseled on the following discharge medications and changes in medications for homegoing review. - Warfarin 6 mg daily. Increasing dose from 4 mg daily. The Reason for Use, instructions for use, and potential side effects were reviewed for all new medications. The patient's questions regarding all of their medications were answered. The patient was able to verbally demonstrate an understanding of their dischargemedications. Medications at Discharge Home Medications multivitamin (Daily Multi-Vitamin tablet) 1 tab PO DAILY vitamin 02/11/23 aspirin 81 mg chewable tablet 81 mg PO BREAKFAST heart health #1 TAB 02/13/23 amlodipine 10 mg tablet 10 mg PO QDAY blood pressure 01/19/24 atorvastatin 40 mg tablet 40 mg PO QHS cholesterol 02/15/24 carbamazepine 200 mg tablet 400 mg PO Q12H seizures 02/15/24 valsartan 160 mg tablet 160 mg PO BID blood pressure #180 tabs 04/08/24 carvedilol 25 mg tablet 25 mg PO BID blood pressure #180 tabs 06/13/24 hydralazine 100 mg tablet 100 mg PO TID blood pressure #270 TABLETS 06/14/24 warfarin 6 mg tablet 6 mg PO DAILY #30 tabs 10/25/24 10/25/24 1310 ebly> Date _ Nathan Rollins Signature (if applicable): Date CC: ~ Signed [facility]09-18-2025 Discharge summary [facility] Medical Records Department [address] [place] [address] Instructions for Home/Discharge Instructions 10/25/24 1229 MR#: [id number] Acct: [id number] Name: MARK MARTIN Rep #:[id number] : 1950 74 From: Rosalva Ortez MD PCP: Dr. Savage Gilliam MD Status:ADM IN Discharge Instructions DC O2, CPAP, BIPAP needs Home O2 Discharge instructions: No Dressing / Incision Discharge Activity: Return to Normal Activity Weight Bearing Status: Weight bearing as tolerated Dressing / Incision Call your doctor if you observe: Fever of 101 or Higher, Shortness of breath, Dizziness, Swelling in the ankles and Chest pain Follow Up Care Test Results: Test results from this visit will be discussed in further detail at your follow- up appointment, if applicable. Discharge Plan Admission Admit Date/Time: 10/23/24 00:15 Primary Reason for Your Visit: acute CVA Attending Provider: Rosalva Ortez Primary Care Provider: Savage Gilliam Consulting Providers: Forrest Bonilla Instructions Patient Instructions: Booklet - Understanding Stroke Discharge Orders/Prescriptions Prescriptions: New warfarin 6 mg tablet 6 mg PO DAILY Qty: 30 2RF Continued amlodipine 10 mg tablet 10 mg PO QDAY Patient Comments: takes at 0600 atorvastatin 40 mg tablet 40 mg PO QHS carbamazepine 200 mg tablet 400 mg PO Q12H Patient Comments: takes at 0600 and 1800 multivitamin [Daily Multi-Vitamin] Tablet 1 tab PO DAILY Patient Comments: takes at 1200 aspirin 81 mg Tablet,Chewable 81 mg PO BREAKFAST Qty: 1 0RF Patient Comments: takes at 0600 valsartan 160 mg tablet 160 mg PO BID Qty: 180 3RF Patient Comments: takes at 0600 and 1800 carvedilol 25 mg tablet 25 mg PO BID Qty: 180 3RF Patient Comments: takes at 0600 and 1800 hydralazine 100 mg tablet 100 mg PO TID Qty: 270 3RF Patient Comments: takes at 0600, 1800, and 0000 Discontinued warfarin 4 mg tablet 4 mg PO DAILY Patient Comments: takes at 1800 Referrals / Follow Up: Savage Gilliam MD [Primary Care Provider, Family Practice] - 11/01/24 10:30 am Familia Hurst MD [Non-Staff -Ordering Privileges, Neurology] - Within 2 Weeks Referral Note: see to establish care for stroke Disposition Disposition (needs filled in before D/C Order can be placed): Home Health Service 10/25/24 1230Rosalva Ortez MD CC: Dr. Savage Gilliam MD; Dr. Forrest Bonilla MD ~ Signed ADDENDUM by Dr. Rosalva Ortez MD on 10/25/24 at 1231 To follow-up with PCP within 1 week for INR to be checked and for Coumadin dose to be adjusted as needed. Coumadin increased 6 mg daily. Counseled that she will need very close monitoring of her Coumadin levels. 10/25/24 1231Rosalva Ortez MD cc: Dr. Savage Gilliam MD; Dr. Forrest Bonilla MD ~* Signed [facility]09-18[facility]20[facility] Progress note Author Rosalva [facility] Note Date/Time October 24, 2024 3:58pm [facility] Medical Records Department [address] [place] [address] Progress Note 10/24/24 1026 MR#: [id number] Acct: [id number] Name: MARK MARTIN Rep #:[id number] : 1950 74 From: Rosalva Ortez MD PCP: Dr. Savage Gilliam MD Status:ADM IN Location: [place] [address] Subjective Subjective Patient seen and examined. She had no active complaints underwent uneventful night. Extremity weakness is improving. Review of systems otherwise negative. INR still subtherapeutic today Objective Data Objective Data Vital Signs: Vital Signs Temp Pulse Resp BP Pulse Ox O2 Del Method 97.7 F L 67 14 144/121 H 95 Room Air 10/24/24 08:58 10/24/24 09:00 10/24/24 08:58 10/24/24 09:00 10/24/24 08:59 10/24/24 08:59 Oxygen Delivery Method Room Air Weight: 116 lb 13.52 oz Body Mass Index (BMI) 22.1 Intake & Output: Intake and Output for Last 24 Hours 10/22/24 10/23/24 10/24/24 23:59 23:59 23:59 Intake Total 100 / 100 Balance 100 / 100 Lab / Micro Data 10/24/24 05:28 10/24/24 05:28 Labs: Laboratory Results - last 24 hr 10/24/24 05:28: WBC 7.4, RBC 4.51, Hgb 14.8, Hct 41.2, MCV 91.4, MCH 32.8 H, MCHC 35.9, RDW Std Deviation 42.6, RDW Coeff of Geena 12.7, Plt Count 194, MPV 10.1, Immature Gran % (Auto) 0.400, Neut % (Auto) 59.6, Lymph % (Auto) 29.9, Fannin % (Auto) 8.6, Eos % (Auto) 0.4, Baso % (Auto) 1.1 H, Absolute Neuts (auto) 4.4, Absolute Lymphs (auto) 2.20, Nucleated RBC % 0, PT 15.9 H, INR 1.3, Sodium 142, Potassium 3.3, Chloride 105, Carbon Dioxide 23.3, Anion Gap 14, BUN 12, Creatinine 0.48 L, Estim Creat Clear Calc 45.85 L, Est GFR (MDRD) Non-Af 99, BUN/Creatinine Ratio 25.8 H, Glucose 119 H, Calcium 9.2 Radiography Diagnostic Testing: Radiology Impression Echocardiogram 10/23/24 01:50 Interpretation Summary The left ventricular ejection fraction is 60 %. Severe concentric left ventricular hypertrophy. The left atrium is severely enlarged. The right atrium is mildly enlarged. Mild mitral valve stenosis. Mild (1+) mitral valve insufficiency. Mild (1+) tricuspid valve insufficiency. Stable appearing bioprosthetic aortic valve apparatus. Mildly dilated aortic root. Ordering Physician: Forrest Bonilla Performed By: Alfredo Guadalupe RCS Brain MRI 10/23/24 05:55 IMPRESSION: 1. Possible subacute lacunar infarct posterior limb of left internal capsule. Noother areas of recent infarct. Chronic encephalomalacia and gliosis in the anterior right temporal lobe with no superimposed acute component. Right temporal infarct is however new since 01/17/2024. 2. Advanced chronic small-vessel ischemic changes with numerous scattered old lacunar infarcts involving the bilateral lundberg radiata, basal ganglia, and cerebellar hemispheres. 3. No intracranial or cervical large vessel arterial occlusion or flow-limiting stenosis. 4. Mild right and more moderate left narrowing of the proximal cervical ICAs. Reading Location: [email or web address] Head MRA 10/23/24 05:55 IMPRESSION: 1. Possible subacute lacunar infarct posterior limb of left internal capsule. Noother areas of recent infarct. Chronic encephalomalacia and gliosis in the anterior right temporal lobe with no superimposed acute component. Right temporal infarct is however new since 01/17/2024. 2. Advanced chronic small-vessel ischemic changes with numerous scattered old lacunar infarcts involving the bilateral lundberg radiata, basal ganglia, and cerebellar hemispheres. 3. No intracranial or cervical large vessel arterial occlusion or flow-limiting stenosis. 4. Mild right and more moderate left narrowing of the proximal cervical ICAs. Reading Location: [email or web address] Neck MRA 10/23/24 05:55 IMPRESSION: 1. Possible subacute lacunar infarct posterior limb of left internal capsule. Noother areas of recent infarct. Chronic encephalomalacia and gliosis in the anterior right temporal lobe with no superimposed acute component. Right temporal infarct is however new since 01/17/2024. 2. Advanced chronic small-vessel ischemic changes with numerous scattered old lacunar infarcts involving the bilateral lundberg radiata, basal ganglia, and cerebellar hemispheres. 3. No intracranial or cervical large vessel arterial occlusion or flow-limiting stenosis. 4. Mild right and more moderate left narrowing of the proximal cervical ICAs. Reading Location: [id number] Rhythm Strip Rhythm Strip: A-fib Rate: 85 Ectopy: None Physical Exam Const alert, oriented x3, no apparent distress and well nourished General Appearance: cooperative and well developed HEENT normocephalic, head/scalp atraumatic, moist oral mucous membranes and oropharynxnormal Eyes PERRL and EOMs intact bilaterally Neck no lymphadenopathy, supple and no JVD Lymph Lymphatic: no lymphadenopathy noted and no lymphedema noted Resp normal respiratory effort, normal air movement and clear to auscultation bilaterally Cardio regular rate, regular rhythm, S1 normal heart sound and S2 normal heart sound GI normal to inspection, nondistended, normoactive bowel sounds and soft to palpation Extremity normal capillary refill, no clubbing, cyanosis or edema and no calf tenderness General Extremity: no tenderness to palpation of joints or extremities Skin General Skin Exam: no breakdown and turgor normal Neuro CN's II-XII intact bilaterally and no sensory deficits noted Neuro Narrative: Slight weakness in left leg as compared to right Motor Exam: strength 5/5 throughout Psych thought process normal, cooperative and affect normal Appearance: appropriate Assessment & Plan Assessment/Plan (1) Subtherapeutic anticoagulation: (2) Acute ischemic stroke: PLAN: Plan #Acute ischemic CVA * Admitted with a complaint of left lower extremity weakness and right upper extremity weakness. * CT of the brain that showed acute infarct of the right anterior temporal lobe and evidence of old lacunar infarcts. * MRI of the brain done showed possible subacute lacunar infarct of the posterior limb of the left internal capsule with chronic encephalomalacia and gliosis in the anterior right temporal lobe with no superimposed acute component right temporal infarct being new since 01/17/2024 * Has a history of A-fib and is on Coumadin. She claims compliance but INR is therapeutic and is 1.3 today. Being bridged with Lovenox; continue Coumadin. Counseled on compliance. * PT OT on board. Fall precautions. * BP meds held for the first 24 hours to allow for permissive hypertension * PT/OT on board and high intensity statin. * 2D echo showed severe left ventricular hypertrophy with EF of 60% and normal left ventricular systolic function with stage I diastolic dysfunction. Also had mild mitral valve stenosis and left atrium is severely enlarged. #Hyperlipidemia: On high intensity statin #Atrial fibrillation: On carvedilol. On Coumadin with subtherapeutic INR. INR is 1.3 today. Coumadin being bridged with Lovenox #Chronic left lower extremity weakness: * Does have a history of left knee arthroplasty and has had the weakness since then. * PT OT on board. #Depression: On carbamazepine #Nicotine dependence: Counseled to quit #Hypertension: On amlodipine and losartan as well as carvedilol #COPD: Not in exacerbation. Breathing treatments with bronchodilators. DVT prophylaxis: anticoagulated as stated above on coumadin with lovenox bridging. INR today is 1.3. Charges/Coding Visit Charges Inpatient E&M: 59789 Subs Hosp L2 10/24/24 1558 <Electronically signed by Rosalva Ortez MD> Rosalva Ortez MD Cosigner Signature (if applicable): CC: ~ Signed [facility] Work Phone: [phone] Progress note [facility] Medical Records Department [address] [place] [address] Progress Note 10/24/24 1026 MR#: [id number] Acct: [id number] Name: MARK MARTIN Rep #:[id number] : 1950 74 From: Rosalva Ortez MD PCP: Dr. Savage Gilliam MD Status:ADM IN Location: [place] [address] Subjective Subjective Patient seen and examined. She had no active complaints underwent uneventful night. Extremity weakness is improving. Review of systems otherwise negative. INR still subtherapeutic today Objective Data Objective Data Vital Signs: Vital Signs Temp Pulse Resp BP Pulse Ox O2 Del Method 97.7 F L 67 14 144/121 H 95 Room Air 10/24/24 08:58 10/24/24 09:00 10/24/24 08:58 10/24/24 09:00 10/24/24 08:59 10/24/24 08:59 Oxygen Delivery Method Room Air Weight: 116 lb 13.52 oz Body Mass Index (BMI) 22.1 Intake & Output: Intake and Output for Last 24 Hours 10/22/24 10/23/24 10/24/24 23:59 23:59 23:59 Intake Total 100 / 100 Balance 100 / 100 Lab / Micro Data 10/24/24 05:28 10/24/24 05:28 Labs: Laboratory Results - last 24 hr 10/24/24 05:28: WBC 7.4, RBC 4.51, Hgb 14.8, Hct 41.2, MCV 91.4, MCH 32.8 H, MCHC 35.9, RDW Std Deviation 42.6, RDW Coeff of Geena 12.7, Plt Count 194, MPV 10.1, Immature Gran % (Auto) 0.400, Neut % (Auto) 59.6, Lymph % (Auto) 29.9, Fannin % (Auto) 8.6, Eos % (Auto) 0.4, Baso % (Auto) 1.1 H, Absolute Neuts (auto) 4.4, Absolute Lymphs (auto) 2.20, Nucleated RBC % 0, PT 15.9 H, INR 1.3, Sodium 142, Potassium 3.3, Chloride 105, Carbon Dioxide 23.3, Anion Gap 14, BUN 12, Creatinine 0.48 L, Estim Creat Clear Calc 45.85 L, Est GFR (MDRD) Non-Af 99, BUN/Creatinine Ratio 25.8 H, Glucose 119 H, Calcium 9.2 Radiography Diagnostic Testing: Radiology Impression Echocardiogram 10/23/24 01:50 Interpretation Summary The left ventricular ejection fraction is 60 %. Severe concentric left ventricular hypertrophy. The left atrium is severely enlarged. The right atrium is mildly enlarged. Mild mitral valve stenosis. Mild (1+) mitral valve insufficiency. Mild (1+) tricuspid valve insufficiency. Stable appearing bioprosthetic aortic valve apparatus. Mildly dilated aortic root. Ordering Physician: Forrest Bonilla Performed By: Alfredo Guadalupe RCS Brain MRI 10/23/24 05:55 IMPRESSION: 1. Possible subacute lacunar infarct posterior limb of left internal capsule. Noother areas of recent infarct. Chronic encephalomalacia and gliosis in the anterior right temporal lobe with no superimposed acute component. Right temporal infarct is however new since 01/17/2024. 2. Advanced chronic small-vessel ischemic changes with numerous scattered old lacunar infarcts involving the bilateral lundberg radiata, basal ganglia, and cerebellar hemispheres. 3. No intracranial or cervical large vessel arterial occlusion or flow-limiting stenosis. 4. Mild right and more moderate left narrowing of the proximal cervical ICAs. Reading Location: [id number] Head MRA 10/23/24 05:55 IMPRESSION: 1. Possible subacute lacunar infarct posterior limb of left internal capsule. Noother areas of recent infarct. Chronic encephalomalacia and gliosis in the anterior right temporal lobe with no superimposed acute component. Right temporal infarct is however new since 01/17/2024. 2. Advanced chronic small-vessel ischemic changes with numerous scattered old lacunar infarcts involving the bilateral lundberg radiata, basal ganglia, and cerebellar hemispheres. 3. No intracranial or cervical large vessel arterial occlusion or flow-limiting stenosis. 4. Mild right and more moderate left narrowing of the proximal cervical ICAs. Reading Location: [id number] Neck MRA 10/23/24 05:55 IMPRESSION: 1. Possible subacute lacunar infarct posterior limb of left internal capsule. Noother areas of recent infarct. Chronic encephalomalacia and gliosis in the anterior right temporal lobe with no superimposed acute component. Right temporal infarct is however new since 01/17/2024. 2. Advanced chronic small-vessel ischemic changes with numerous scattered old lacunar infarcts involving the bilateral lundberg radiata, basal ganglia, and cerebellar hemispheres. 3. No intracranial or cervical large vessel arterial occlusion or flow-limiting stenosis. 4. Mild right and more moderate left narrowing of the proximal cervical ICAs. Reading Location: [facility] Rhythm Strip Rhythm Strip: A-fib Rate: 85 Ectopy: None Physical Exam Const alert, oriented x3, no apparent distress and well nourished General Appearance: cooperative and well developed HEENT normocephalic, head/scalp atraumatic, moist oral mucous membranes and oropharynxnormal Eyes PERRL and EOMs intact bilaterally Neck no lymphadenopathy, supple and no JVD Lymph Lymphatic: no lymphadenopathy noted and no lymphedema noted Resp normal respiratory effort, normal air movement and clear to auscultation bilaterally Cardio regular rate, regular rhythm, S1 normal heart sound and S2 normal heart sound GI normal to inspection, nondistended, normoactive bowel sounds and soft to palpation Extremity normal capillary refill, no clubbing, cyanosis or edema and no calf tenderness General Extremity: no tenderness to palpation of joints or extremities Skin General Skin Exam: no breakdown and turgor normal Neuro CN's II-XII intact bilaterally and no sensory deficits noted Neuro Narrative: Slight weakness in left leg as compared to right Motor Exam: strength 5/5 throughout Psych thought process normal, cooperative and affect normal Appearance: appropriate Assessment & Plan Assessment/Plan (1) Subtherapeutic anticoagulation: (2) Acute ischemic stroke: PLAN: Plan #Acute ischemic CVA * Admitted with a complaint of left lower extremity weakness and right upper extremity weakness. * CT of the brain that showed acute infarct of the right anterior temporal lobe and evidence of oldlacunar infarcts. * MRI of the brain done showed possible subacute lacunar infarct of the posterior limb of the left internal capsule with chronic encephalomalacia and gliosis in the anterior right temporal lobe with no superimposed acute component right temporal infarct being new since 01/17/2024 * Has a history of A-fib and is on Coumadin. She claims compliance but INR is therapeutic and is 1.3 today. Being bridged with Lovenox; continue Coumadin. Counseled on compliance. * PT OT on board. Fall precautions. * BP meds held for the first 24 hours to allow for permissive hypertension * PT/OT on board and high intensity statin. * 2D echo showed severe left ventricular hypertrophy with EF of 60% and normal left ventricular systolic function with stage I diastolic dysfunction. Also had mild mitral valve stenosis and left atrium is severely enlarged. #Hyperlipidemia: On high intensity statin #Atrial fibrillation: On carvedilol. On Coumadin with subtherapeutic INR. INR is 1.3 today. Coumadin being bridged with Lovenox #Chronic left lower extremity weakness: * Does have a history of left knee arthroplasty and has had the weakness since then. * PT OT on board. #Depression: On carbamazepine #Nicotine dependence: Counseled to quit #Hypertension: On amlodipine and losartan as well as carvedilol #COPD: Not in exacerbation. Breathing treatments with bronchodilators. DVT prophylaxis: anticoagulated as stated above on coumadin with lovenox bridging. INR today is 1.3. Charges/Coding Visit Charges Inpatient E&M: 70063 Subs Hosp L2 10/24/24 7561 Rosalva Ortez MD Cosigner Signature (if applicable): CC: ~ Signed [facility]09-16-2025 Progress note Author Rosalva Ortez [facility] Note Date/Time October 23, 2024 4:21pm [facility] Medical Records Department [address] [place] [address] Progress Note 10/23/24 1608 MR#: [id number] Acct: [id number] Name: MARK MARTIN Rep #:[id number] : 1950 74 From: Rosalva Ortez MD PCP: Dr. Savage Gilliam MD Status:ADM IN Location: [place] [address] Subjective Subjective Patient seen and examined with the nurse by her bedside. She still complained ofsome weakness in her RUE and LLE. She denied any dizziness, lightheadedness, nausea, vomiting or any other symptoms. Review of systems is otherwise negative.Her INR remains subtherapeutic. She claims compliance with her Coumadin. Objective Data Objective Data Vital Signs: Vital Signs Temp Pulse Resp BP Pulse Ox O2 Del Method 97.8 F 71 18 166/115 H 97 Room Air 10/23/24 15:45 10/23/24 15:45 10/23/24 15:45 10/23/24 15:45 10/23/24 15:45 10/23/24 15:45 Oxygen Delivery Method Room Air Weight: 116 lb 13.52 oz Body Mass Index (BMI) 22.1 Intake & Output: Intake and Output for Last 24 Hours 10/21/24 10/22/24 10/23/24 23:59 23:59 23:59 Intake Total 100 / 100 Balance 100 / 100 Lab / Micro Data 10/23/24 05:10 10/23/24 05:10 Labs: Laboratory Results - last 24 hr 10/22/24 21:45: WBC 5.7, RBC 4.20, Hgb 13.5, Hct 39.7, MCV 94.5, MCH 32.1 H, MCHC 34.0, RDW Std Deviation 43.9, RDW Coeff of Geena 12.7, Plt Count 177, MPV 9.9, Immature Gran % (Auto) 0.500, Neut % (Auto) 60.2, Lymph % (Auto) 28.7, Fannin% (Auto) 9.3, Eos % (Auto) 0.3, Baso % (Auto) 1.0, Absolute Neuts (auto) 3.4, Absolute Lymphs (auto) 1.64, Nucleated RBC % 0, PT 15.4 H, INR 1.2, Sodium 138, Potassium 4.2, Chloride 104, Carbon Dioxide 23.9, Anion Gap 10, BUN 11, Creatinine 0.57 L, Estim Creat Clear Calc 45.85 L, Est GFR (MDRD) Non-Af 95, BUN/Creatinine Ratio 19.4, Glucose 131 H, Hemoglobin A1c 5.7, Calcium 9.1, TotalBilirubin 0.28, Direct Bilirubin 0.13, AST 22, ALT 17, Alkaline Phosphatase 71, Total Protein 6.2, Albumin 4.0, Globulin 2.2, TSH 1.400 10/22/24 23:35: Urine Opiates Screen NEGATIVE, U Buprenorphine Qual NEGATIVE, UrOxycodone Screen NEGATIVE, Urine Methadone Screen NEGATIVE, Urine Fentanyl Screen NEGATIVE, Ur Barbiturates Screen NEGATIVE, Ur Phencyclidine Scrn NEGATIVE, Ur Amphetamines Screen NEGATIVE, U Benzodiazepines Scrn NEGATIVE, Urine Cocaine Screen NEGATIVE, U Cannabinoids Screen NEGATIVE 10/23/24 05:10: WBC 6.5, RBC 4.13 L, Hgb 13.4, Hct 38.8, MCV 93.9, MCH 32.4 H, MCHC 34.5, RDW Std Deviation 44.3 H, RDW Coeff of Geena 12.8, Plt Count 175, MPV 9.9, Immature Gran % (Auto) 0.300, Neut % (Auto) 50.9, Lymph % (Auto) 39.7, Fannin% (Auto) 7.4, Eos % (Auto) 0.6, Baso % (Auto) 1.1 H, Absolute Neuts (auto) 3.3, Absolute Lymphs (auto) 2.58, Nucleated RBC % 0, PT 16.7 H, INR 1.3, Sodium 140, Potassium 3.5, Chloride 104, Carbon Dioxide 24.4, Anion Gap 11, BUN 8, Creatinine 0.51 L, Estim Creat Clear Calc 45.85 L, Est GFR (MDRD) Non-Af 97, BUN/Creatinine Ratio 16.6, Glucose 108 H, Calcium 9.0, Triglycerides 148, Cholesterol 124, LDL Cholesterol, Calc 53, VLDL Cholesterol 30, HDL Cholesterol 42, Cholesterol/HDL Ratio 2.99 Radiography Diagnostic Testing: Radiology Impression Brain CT 10/22/24 21:50 IMPRESSION: 1. Acute infarct involving the anterior right temporal lobe. 2. Advanced chronic small-vessel ischemic changes with numerous scattered foci of old lacunar infarcts in the bilateral cerebral and cerebellar hemispheres. 3. No acute hemorrhage, extra-axial collection, or mass-effect. Reading Location: [facility] Knee X-Ray 10/22/24 21:50 IMPRESSION: Intact left knee arthroplasty. Reading Location: [facility] Echocardiogram 10/23/24 01:50 Interpretation Summary The left ventricular ejection fraction is 60 %. Severe concentric left ventricular hypertrophy. The left atrium is severely enlarged. The right atrium is mildly enlarged. Mild mitral valve stenosis. Mild (1+) mitral valve insufficiency. Mild (1+) tricuspid valve insufficiency. Stable appearing bioprosthetic aortic valve apparatus. Mildly dilated aortic root. Ordering Physician: Forrest Bonilla Performed By: Alfredo Guadalupe RCS Rhythm Strip Rhythm Strip: A-fib Rate: 85 Ectopy: None Physical Exam Const alert, oriented x3 and no apparent distress General Appearance: cooperative and well developed HEENT normocephalic, head/scalp atraumatic, moist oral mucous membranes and oropharynxnormal Eyes EOMs intact bilaterally Neck supple and no JVD Lymph Lymphatic: no lymphedema noted Resp normal respiratory effort, normal air movement and clear to auscultation bilaterally Cardio regular rate, regular rhythm, S1 normal heart sound and S2 normal heart sound GI normal to inspection, nondistended, normoactive bowel sounds, soft to palpation,non-tender and non-distended Extremity normal capillary refill, no clubbing, cyanosis or edema and no calf tenderness General Extremity: no tenderness to palpation of joints or extremities Skin General Skin Exam: no breakdown Neuro CN's II-XII intact bilaterally, no focal motor deficits and no sensory deficits noted Motor Exam: strength 5/5 throughout Psych thought process normal and cooperative Appearance: appropriate Assessment & Plan Assessment/Plan (1) Subtherapeutic anticoagulation: (2) Acute ischemic stroke: PLAN: Plan #Acute ischemic CVA * Admitted with a complaint of left lower extremity weakness and right upper extremity weakness. * CT of the brain that showed acute infarct of the right anterior temporal lobe and evidence of old lacunar infarcts. * MRI of the brain done, read is pending * Has a history of A-fib and is on Coumadin. She claims compliance but INR is therapeutic and is 1.2 today. Will bridge with Lovenox and continue Coumadin. Counseled on compliance. * PT OT on board. Fall precautions. * BP meds held for the first 24 hours to allow for permissive hypertension * PT and high intensity statin. * 2D echo showed severe left ventricular hypertrophy with EF of 60% and normal left ventricular systolic function with stage I diastolic dysfunction. Also had mild mitral valve stenosis and left atrium is severely enlarged. #Hyperlipidemia: On high intensity statin #Atrial fibrillation: On carvedilol. On Coumadin with subtherapeutic INR. Coumadin being bridged with Lovenox #Chronic left lower extremity weakness: Does have a history of left knee arthroplasty and has had the weakness since then. PT OT on board. #Depression: On carbamazepine #Nicotine dependence: Counseled to quit #Hypertension: On amlodipine and losartan as well as carvedilol #COPD: Not in exacerbation. Breathing treatments with bronchodilators. DVT prophylaxis: anticoagulated as stated above on coumadin with lovenox bridging. INR today is 1.2. Charges/Coding Visit Charges Inpatient E&M: 48808 Subs Hosp L2 10/23/241620 <Electronically signed by Rosalva Ortez MD> Rosalva Ortez MD Cosigner Signature (if applicable): CC: ~ Signed ADDENDUM by Dr. Rosalva Ortez MD on 10/23/24 at 1621 Addendum Correction: INR is 1.3, not 1.2. 10/23/24 1621 <Electronically signed by Rosalva dalton MD> Date _ Rosalva Ortez MD Cosigner Signature (if applicable): Date __ cc: ~* Signed [facility] Work Phone: [phone]) 299-718909-16-2025 Progress note [facility] Medical Records Department [address] [place] [address] Progress Note 10/23/24 1608 MR#: [id number] Acct: [id number] Name: MARK MARTIN Rep #:[id number] : 1950 74 From: Rosalva Ortez MD PCP: Dr. Savage Gilliam MD Status:ADM IN Location: [place] [address] Subjective Subjective Patient seen and examined with the nurse by her bedside. She still complained ofsome weakness in her RUE and LLE. She denied any dizziness, lightheadedness, nausea, vomiting or any other symptoms. Review of systems is otherwise negative.Her INR remains subtherapeutic. She claims compliance with herCoumadin. Objective Data Objective Data Vital Signs: Vital Signs Temp Pulse Resp BP Pulse Ox O2 Del Method 97.8 F 71 18 166/115 H 97 Room Air 10/23/24 15:45 10/23/24 15:45 10/23/24 15:45 10/23/24 15:45 10/23/24 15:45 10/23/24 15:45 Oxygen Delivery Method Room Air Weight: 116 lb 13.52 oz Body Mass Index (BMI) 22.1 Intake & Output: Intake and Output for Last 24 Hours 10/21/24 10/22/24 10/23/24 23:59 23:59 23:59 Intake Total 100 / 100 Balance 100 / 100 Lab / Micro Data 10/23/24 05:10 10/23/24 05:10 Labs: Laboratory Results - last 24 hr 10/22/24 21:45: WBC 5.7, RBC 4.20, Hgb 13.5, Hct 39.7, MCV 94.5, MCH 32.1 H, MCHC 34.0, RDW Std Deviation 43.9, RDW Coeff of Geena 12.7, Plt Count 177, MPV 9.9, Immature Gran % (Auto) 0.500, Neut % (Auto) 60.2, Lymph % (Auto) 28.7, Fannin% (Auto) 9.3, Eos % (Auto) 0.3, Baso % (Auto) 1.0, Absolute Neuts(auto) 3.4, Absolute Lymphs (auto) 1.64, Nucleated RBC % 0, PT 15.4 H, INR 1.2, Sodium 138, Potassium 4.2, Chloride 104, Carbon Dioxide 23.9, Anion Gap 10, BUN 11, Creatinine 0.57 L, Estim Creat Clear Calc 45.85 L, Est GFR (MDRD) Non-Af 95, BUN/Creatinine Ratio 19.4, Glucose 131 H, Hemoglobin A1c 5.7, Calcium 9.1, TotalBilirubin 0.28, Direct Bilirubin 0.13, AST 22, ALT 17, Alkaline Phosphatase 71, Total Protein 6.2, Albumin 4.0, Globulin 2.2, TSH 1.400 10/22/24 23:35: Urine Opiates Screen NEGATIVE, U Buprenorphine Qual NEGATIVE, UrOxycodone Screen NEGATIVE, Urine Methadone Screen NEGATIVE, Urine Fentanyl Screen NEGATIVE, Ur Barbiturates Screen NEGATIVE, Ur Phencyclidine Scrn NEGATIVE, Ur Amphetamines Screen NEGATIVE, U Benzodiazepines Scrn NEGATIVE, Urine Cocaine Screen NEGATIVE, U Cannabinoids Screen NEGATIVE 10/23/24 05:10: WBC 6.5, RBC 4.13 L, Hgb 13.4, Hct 38.8, MCV 93.9, MCH 32.4 H, MCHC 34.5, RDW Std Deviation 44.3 H, RDW Coeff of Geena 12.8, Plt Count 175, MPV 9.9, Immature Gran % (Auto) 0.300, Neut %(Auto) 50.9, Lymph % (Auto) 39.7, Fannin% (Auto) 7.4, Eos % (Auto) 0.6, Baso % (Auto) 1.1 H, AbsoluteNeuts (auto) 3.3, Absolute Lymphs (auto) 2.58, Nucleated RBC % 0, PT 16.7 H, INR 1.3, Sodium 140, Potassium 3.5, Chloride 104, Carbon Dioxide 24.4, Anion Gap 11, BUN 8, Creatinine 0.51 L, Estim CreatClear Calc 45.85 L, Est GFR (MDRD) Non-Af 97, BUN/Creatinine Ratio 16.6, Glucose 108 H, Calcium 9.0, Triglycerides 148, Cholesterol 124, LDL Cholesterol, Calc 53, VLDL Cholesterol 30, HDL Cholesterol 42, Cholesterol/HDL Ratio 2.99 Radiography Diagnostic Testing: Radiology Impression Brain CT 10/22/24 21:50 IMPRESSION: 1. Acute infarct involving the anterior right temporal lobe. 2. Advanced chronic small-vessel ischemic changes with numerous scattered foci of old lacunar infarcts in the bilateral cerebral and cerebellar hemispheres. 3. No acute hemorrhage, extra-axial collection, or mass-effect. Reading Location: [facility] Knee X-Ray 10/22/24 21:50 IMPRESSION: Intact left knee arthroplasty. Reading Location: [facility] Echocardiogram 10/23/24 01:50 Interpretation Summary The left ventricular ejection fraction is 60 %. Severe concentric left ventricular hypertrophy. The left atrium is severely enlarged. The right atrium is mildly enlarged. Mild mitral valve stenosis. Mild (1+) mitral valve insufficiency. Mild (1+) tricuspid valve insufficiency. Stable appearing bioprosthetic aortic valve apparatus. Mildly dilated aortic root. Ordering Physician: Forrest Bonilla Performed By: Alfredo Guadalupe RCS Rhythm Strip Rhythm Strip: A-fib Rate: 85 Ectopy: None Physical Exam Const alert, oriented x3 and no apparent distress General Appearance: cooperative and well developed HEENT normocephalic, head/scalp atraumatic, moist oral mucous membranes and oropharynxnormal Eyes EOMs intact bilaterally Neck supple and no JVD Lymph Lymphatic: no lymphedema noted Resp normal respiratory effort, normal air movement and clear to auscultation bilaterally Cardio regular rate, regular rhythm, S1 normal heart sound and S2 normal heart sound GI normal to inspection, nondistended, normoactive bowel sounds, soft to palpation,non-tender and non-distended Extremity normal capillary refill, no clubbing, cyanosis or edema and no calf tenderness General Extremity: no tenderness to palpation of joints or extremities Skin General Skin Exam: no breakdown Neuro CN's II-XII intact bilaterally, no focal motor deficits and no sensory deficits noted Motor Exam: strength 5/5 throughout Psych thought process normal and cooperative Appearance: appropriate Assessment & Plan Assessment/Plan (1) Subtherapeutic anticoagulation: (2) Acute ischemic stroke: PLAN: Plan #Acute ischemic CVA * Admitted with a complaint of left lower extremity weakness and right upper extremity weakness. * CT of the brain that showed acute infarct of the right anterior temporal lobe and evidence of oldlacunar infarcts. * MRI of the brain done, read is pending * Has a history of A-fib and is on Coumadin. She claims compliance but INR is therapeutic and is 1.2 today. Will bridge with Lovenox and continue Coumadin. Counseled on compliance. * PT OT on board. Fall precautions. * BP meds held for the first 24 hours to allow for permissive hypertension * PT and high intensity statin. * 2D echo showed severe left ventricular hypertrophy with EF of 60% and normal left ventricular systolic function with stage I diastolic dysfunction. Also had mild mitral valve stenosis and left atrium is severely enlarged. #Hyperlipidemia: On high intensity statin #Atrial fibrillation: On carvedilol. On Coumadin with subtherapeutic INR. Coumadin being bridged with Lovenox #Chronic left lower extremity weakness: Does have a history of left knee arthroplasty and has had the weakness since then. PT OT on board. #Depression: On carbamazepine #Nicotine dependence: Counseled to quit #Hypertension: On amlodipine and losartan as well as carvedilol #COPD: Not in exacerbation. Breathing treatments with bronchodilators. DVT prophylaxis: anticoagulated as stated above on coumadin with lovenox bridging. INR today is 1.2. Charges/Coding Visit Charges Inpatient E&M: 59150 Subs Hosp L2 10/23/24 1621 Rosalva Ortez MD Cosigner Signature (if applicable): CC: ~ Signed ADDENDUM by Dr. Rosalva Ortez MD on 10/23/24 at 1621 Addendum Correction: INR is 1.3, not 1.2. 10/23/24 1621 m MD> Date _ Rosalva Ortez MD Cosigner Signature (if applicable): Date cc: ~* Signed [facility]09-16-2025 Consult note Author Sathishpatti Crespo [facility] Note Date/Time October 23, 2024 12:15pm [facility] Medical Records Department [address] [place] [address] Consultation - Neurology 10/23/24 1209 MR#: [id number] Acct: [id number] Name: MARK MARTIN Rep #:[id number] : 1950 74 From: Sathish Crespo MD PCP: Dr. Savage Gilliam MD Status:ADM IN Location: [place] [address] Assessment and Plan: Stroke Assessment/Plan MARK MARTIN is a 74 F with a history of afib on warfarin, AVR with bioprestethic valve, INR 1.2, presents with Left Leg weakness. brain CT shows 1. Acute infarct right anterior temporal lobe, #2 advanced small vessel ischemic changes with scattered foci of old lacunar infarcts, #3 noacute hemorrhage or mass effect. Neurological examination shows NIH 2, LLE drift. Neuroimaging shows R corticalstroke. Unclear timing, but new from previous. subtherapeutic INR. Obtain MRI. Can start AC, given prob > 4 days old. - Anti-Coag medication: Coumadin. She needs closer monitoring. She states shehas been taking her medication, but low INR may state otherwise. - Occupational/ Physical therapy consults - NPO until swallow evaluation. IVF until able to take po - DVT prophylaxis with SCDs and heparin SQ - Vascular risk factor modification. The following are the recommended guidelines: LDL Goal < 70 Smoking Cessation Diabetes Management assistant terminal manager blood pressure control should achieve <130/80 mmHg. BP managementshould aim to achieve terminal operations manager contorl in a reasonable amount of time, taking into consideration the individual patient's requirements and characteristics. Weight Management: Goal for BMI is 18.5 -24.9 kg/m2 Alcohol: No more than 2 drinks/day for men or 1 drink/day for non- women - Promote lifestyle modification: weight control, physical activity, moderation of alcohol intake, moderate sodium intake. Followup with PCP in 1-2 weeks, and in Neurology clinic in 6-12 weeks HPI Consult Data Date of Consult: 10/23/24 HPI Narrative HPI Narrative: MARK MARTIN, is a 74 F who presents LLE weakness. According to the patient she has had this left leg weakness for the past 3 months and she has status post left knee arthroplasty as well. But talking with her more, she was leaning to left more yesterday so her son brought her in. When the ER physician when he was speaking with her son who says she had an episode of dizziness in the store and some facial drooping(laterality was not known) but that did not last very long. It is unclear when her last known well was since she has had this left leg weakness for the past 3 months. Patient does have significant past medical history of stroke 25 years ago approximately with no significant residual neurologic deficits. She also has a history of aortic valve replacement with bioprosthetic valve. Patient does continue to smoke and is on warfarin for A-fib. Patient is feeling better since arrival to the emergency room and has no current new neurologic deficits at this time. 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 Atrial fibrillation Rheumatic fever Mitral prolapse Right renal artery stenosis 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 Anemia Depression Rheumatoid arthritis GERD (gastroesophageal reflux disease) COPD (chronic obstructive pulmonary disease) Deafness in left ear Myocardial infarct Contusion of face Unsteady gait Abrasion of left ring finger Diabetes HTN (hypertension) Home Medications ?Medication ?Instructions ?Recorded ?Last Taken ?Type multivitamin (Daily Multi-Vitamin 1 tab PO DAILY 02/11 Unknown History tablet) aspirin 81 mg chewable tablet 81 mg PO BREAKFAST #1 TA B 02/13/23 Unknown Rx amlodipine 10 mg tablet 10 mg PO QDAY 01/19/24 Unkno wn History atorvastatin 40 mg tablet 40 mg PO QHS 02/15/24 Unknow n History carbamazepine 200 mg tablet 400 mg PO Q12H 02/15/24 Un known History valsartan 160 mg tablet 160 mg PO BID #180 tabs 04/03 Unknown Rx carvedilol 25 mg tablet 25 mg PO BID #180 tabs 06/13 Unknown Rx hydralazine 100 mg tablet 100 mg PO TID #270 TABLETS 0 06/14/24 Unknown Rx warfarin 4 mg tablet 4 mg PO DAILY 10/22/24 Unkno wn History Allergy/AdvReac Type Severity Reaction Status Date / Time [facility] Allergy Severe Anaphylaxis Verified 10/22/24 21:15 ibuprofen Allergy Rash Verified 10/22/24 21:15 naproxen (From Naprosyn) Allergy Rash Verified 10/22/24 21:15 codeine AdvReac Vertigo Verified 10/22/24 21:15 Family History Brother Cancer CAD (coronary artery disease) Diabetes Heart disease Mother Diabetes Hypertension Heart disease Father Hypertension Myocardial infarction Heart disease Son Hypertension Surgical History History of stapedectomy Hx of hernia repair Hx of total knee arthroplasty (02/21/20) Hx of CABG (07/09/22) S/P left knee arthroscopy Aortic valve replaced Social History Smoking Status: Light Smoker (<10/day) Tobacco: How many years used: 20 Vital Signs Vital Signs Vital Signs: 10/22/24 21:15 10/22/24 21:26 10/22/24 21:46 Temperature 98 F Temperature Source Temporal Pulse Rate 82 74 Pulse Strength Respiratory Rate 18 18 Respiratory Effort Normal Non-Labored Respiratory Depth Respiratory Pattern Normal Blood Pressure 145/100 H 139/94 H Blood Pressure Mean 115 109 Blood Pressure Source Blood Pressure Position Blood Pressure Location Pulse Ox 99 99 Oxygen Delivery Method Room Air Room Air 10/22/24 23:00 10/23/24 00:00 10/23/24 01:00 Temperature 98.2 F Temperature Source Pulse Rate 86 98 70 Pulse Strength Respiratory Rate 18 18 18 Respiratory Effort Respiratory Depth Respiratory Pattern Blood Pressure 167/91 H 165/102 H 147/96 H Blood Pressure Mean 116 123 113 Blood Pressure Source Blood Pressure Position Blood Pressure Location Pulse Ox 99 98 98 Oxygen Delivery Method Room Air Room Air 10/23/24 02:00 10/23/24 02:39 10/23/24 05:40 Temperature 98.1 F 98.3 F Temperature Source Oral Oral Pulse Rate 73 68 Pulse Strength Respiratory Rate 16 18 Respiratory Effort Normal Non-Labored Respiratory Depth Normal Respiratory Pattern Normal Blood Pressure 171/108 H 163/109 H Blood Pressure Mean 129 127 Blood Pressure Source Monitor Monitor Blood Pressure Position Semi-Fowlers Semi-Fowlers Blood Pressure Location Right Arm Right Arm Pulse Ox 98 96 Oxygen Delivery Method Room Air Room Air Room Air 10/23/24 07:55 10/23/24 07:58 10/23/24 09:00 Temperature 97.2 F L Temperature Source Temporal Pulse Rate 66 Pulse Strength Normal (2+) Respiratory Rate 18 Respiratory Effort Normal Non-Labored Respiratory Depth Normal Respiratory Pattern Normal Blood Pressure 163/113 H Blood Pressure Mean 129 Blood Pressure Source Monitor Blood Pressure Position Semi-Fowlers Blood Pressure Location Right Arm Pulse Ox 96 Oxygen Delivery Method Room Air Room Air Weight Weight: 53 kg Body Mass Index (BMI) 22.1 EEG Results Procedure Details EEG Procedure Details: MARK MARTIN is a 74 year old F with a past medical history of , who presentsfor evaluation of Electroencephalogram on DATE at TIME Lab / Micro Data 10/23/24 05:10 10/23/24 05:10 Labs: Laboratory Results - last 24 hr 10/22/24 21:45: WBC 5.7, RBC 4.20, Hgb 13.5, Hct 39.7, MCV 94.5, MCH 32.1 H, MCHC 34.0, RDW Std Deviation 43.9, RDW Coeff of Geena 12.7, Plt Count 177, MPV 9.9, Immature Gran % (Auto) 0.500, Neut % (Auto) 60.2, Lymph % (Auto) 28.7, Fannin% (Auto) 9.3, Eos % (Auto) 0.3, Baso % (Auto) 1.0, Absolute Neuts (auto) 3.4, Absolute Lymphs (auto) 1.64, Nucleated RBC % 0, PT 15.4 H, INR 1.2, Sodium 138, Potassium 4.2, Chloride 104, Carbon Dioxide 23.9, Anion Gap 10, BUN 11, Creatinine 0.57 L, Estim Creat Clear Calc 45.85 L, Est GFR (MDRD) Non-Af 95, BUN/Creatinine Ratio 19.4, Glucose 131 H, Hemoglobin A1c 5.7, Calcium 9.1, TotalBilirubin 0.28, Direct Bilirubin 0.13, AST 22, ALT 17, Alkaline Phosphatase 71, Total Protein 6.2, Albumin 4.0, Globulin 2.2, TSH 1.400 10/22/24 23:35: Urine Opiates Screen NEGATIVE, U Buprenorphine Qual NEGATIVE, UrOxycodone Screen NEGATIVE, Urine Methadone Screen NEGATIVE, Urine Fentanyl Screen NEGATIVE, Ur Barbiturates Screen NEGATIVE, Ur Phencyclidine Scrn NEGATIVE, Ur Amphetamines Screen NEGATIVE, U Benzodiazepines Scrn NEGATIVE, Urine Cocaine Screen NEGATIVE, U Cannabinoids Screen NEGATIVE 10/23/24 05:10: WBC 6.5, RBC 4.13 L, Hgb 13.4, Hct 38.8, MCV 93.9, MCH 32.4 H, MCHC 34.5, RDW Std Deviation 44.3 H, RDW Coeff of Geena 12.8, Plt Count 175, MPV 9.9, Immature Gran % (Auto) 0.300, Neut % (Auto) 50.9, Lymph % (Auto) 39.7, Fannin% (Auto) 7.4, Eos % (Auto) 0.6, Baso % (Auto) 1.1 H, Absolute Neuts (auto) 3.3, Absolute Lymphs (auto) 2.58, Nucleated RBC % 0, PT 16.7 H, INR 1.3, Sodium 140, Potassium 3.5, Chloride 104, Carbon Dioxide 24.4, Anion Gap 11, BUN 8, Creatinine 0.51 L, Estim Creat Clear Calc 45.85 L, Est GFR (MDRD) Non-Af 97, BUN/Creatinine Ratio 16.6, Glucose 108 H, Calcium 9.0, Triglycerides 148, Cholesterol 124, LDL Cholesterol, Calc 53, VLDL Cholesterol 30, HDL Cholesterol 42, Cholesterol/HDL Ratio 2.99 Rhythm Strip Rhythm Strip: A-fib Rate: 85 Ectopy: None Imaging Radiology Impression Brain CT 10/22/24 21:50 IMPRESSION: 1. Acute infarct involving the anterior right temporal lobe. 2. Advanced chronic small-vessel ischemic changes with numerous scattered foci of old lacunar infarcts in the bilateral cerebral and cerebellar hemispheres. 3. No acute hemorrhage, extra-axial collection, or mass-effect. Reading Location: [facility] Knee X-Ray 10/22/24 21:50 IMPRESSION: Intact left knee arthroplasty. Reading Location: [facility] Active Medications Active Medications Active Medications: Current Medications Generic Name Dose Route Start Last Admin Trade Name Freq PRN Reason Stop Dose Admin Amlodipine Besylate 10 mg 10/23/24 10:00 10/23/24 09:13 Amlodipine 10 Mg Tablet PO Not Given DAILY ERIN Protocol Carbamazepine 400 mg 10/23/24 06:00 10/23/24 05:35 Carbamazepine 200 Mg Tablet PO 400 mg Q12H ERIN Administration Enoxaparin Sodium 50 mg 10/23/24 06:00 10/23/24 05:35 Enoxaparin 60 Mg/0.6 Ml Syringe SC 50 mg Q12@0600,1800 ERIN Administration Hydralazine HCl 5 mg 10/23/24 02:00 Hydralazine 20 Mg/Ml Vial IV 10/24/24 02:01 Q30M PRN maintain BP parameters with HR <60 Sodium Chloride 250 mls @ 15 mls/hr 10/23/24 01:43 IV .[id number] PRN Saline Flush Sodium Chloride 250 mls @ 15 mls/hr 10/23/24 01:43 IV .[id number] PRN Additional IVPB Infusion Labetalol HCl 10 - 20 mg 10/23/24 02:00 Labetalol 20 Mg/4 Ml Vial IV 10/24/24 02:01 Q10M PRN PRN maintain BP parameters with HR >/=60 Multivitamins 1 tablet 10/23/24 08:00 10/23/24 09:12 Multivitamins,Therapeutic Tablet PO 1 tablet DAILYCM ERIN Administration Sodium Chloride 10 - 40 ml 10/23/24 01:43 0.9% Saline Lock 10 Ml Syringe IV UD PRN SALINE FLUSH Warfarin Sodium 4 mg 10/23/24 17:00 Warfarin (Pbkc) 4 Mg Tablet PO DAILY@[facility] NIHSS NIHSS Nursing Documentation NIHSS Nursing Documentation: NIH Stroke Scale Start: 10/22/24 21:28 Freq: Status: Discharge Protocol: Activity Type Activity Date Activity User E-sign Co-sign Detail Recorded Client Recorded Date Recorded By Document 10/22/24 21:29 [facility] [id number] 10/22/24 21:35 AJ 10/22/24 21:29 NIH Stroke Scale [NIHSS] A score of 0 is normal or asymptomatic . Total possible score is 42. Inpatient: RN or Physician to activate a stroke alert for onset of new stroke symptoms or with NIHSS increase >/= 3 points. Following change in neurological status, NIHSS will be performed per physician order or more frequently PRN. -1a. Level of Consciousness 0 - Alert; keenly responsive -1b. LOC Questions 0 - Answers BOTH questions correctly -1c. LOC Commands 0 - Performs BOTH tasks correctly -2. Best Gaze 0 - Normal -3. Visual 0 - No visual loss -4. Facial Palsy 0 - Normal symmetrical movements -5a. Left Arm 0 - No drift; arm holds 90 ( or 45) degrees for full 10 seconds -5b. Right Arm 0 - No drift; arm holds 90 ( or 45) degrees for full 10 seconds -6a. Left Leg 0 - No drift; leg holds 30- degree position for full 5 seconds -6b. Right Leg 0 - No drift; leg holds 30- degree position for full 5 seconds -7. Limb Ataxia 0 - Absent -8. Sensory 0 - Normal; no sensory loss -9. Best Language 0 - No aphasia; normal -10. Dysarthria 0 - Normal -11. Extinction and Inattention 0 - No abnormality -Total 0 Query Text:A score of 0 is normal or asymptomatic. Total possible score is 42 . ED: Notify Physician for NIHSS increase by > / = 3 points. Inpatient: RN or Physician to activate a stroke alert for NIHSS increase of > / = 3 points. 10/22/24 21:30 ED Nursing Note by Sarah Valente Pt struggled to lift the left leg as high as the right leg, however the patient reports it is because it feels weak, not painful. The patient states she has been having issues with this knee for the past few months. And the patient reports a previous stroke 20 years ago that affected her left side but it returned to baseline afterwards. The patient does state, it feels cold from my knee to my foot and I have been trying to follow up with Dr. Rossi for my knee replacement a few years ago. Initialized on 10/22/24 21:30 - END OF NOTE NIHSS: Ischemic Stroke/TIA Start: 10/23/24 01:42 Text: For PCU Patients: NIH and Neuro Check every 4 Status: Active hours, PRN and with change in RN caregiver. Freq: [id number] Protocol: Activity Type Activity Date Activity User E-sign Co-sign Detail Recorded Client Recorded Date Recorded By Document 10/23/24 07:56 TEDDY [id number] 10/23/24 08:01 TEDDY 10/23/24 07:56 -1a. Level of Consciousness 0 - Alert; keenly responsive -1b. LOC Questions 1 - Answers ONE question correctly -1c. LOC Commands 0 - Performs BOTH tasks correctly -2. Best Gaze 0 - Normal -3. Visual 0 - No visual loss -4. Facial Palsy 0 - Normal symmetrical movements -5a. Left Arm 0 - No drift; arm holds 90 ( or 45) degrees for full 10 seconds -5b. Right Arm 0 - No drift; arm holds 90 ( or 45) degrees for full 10 seconds -6a. Left Leg 0 - No drift; leg holds 30- degree position for full 5 seconds -6b. Right Leg 0 - No drift; leg holds 30- degree position for full 5 seconds -7. Limb Ataxia 0 - Absent -8. Sensory 0 - Normal; no sensory loss -9. Best Language 0 - No aphasia; normal -10. Dysarthria 0 - Normal -11. Extinction and Inattention 0 - No abnormality -Total 1 Query Text:A score of 0 is normal or asymptomatic. Total possible score is 42 . ED: Notify Physician for NIHSS increase by > / = 3 points. Inpatient: RN or Physician to activate a stroke alert for NIHSS increase of > / = 3 points. Coma Scale [Assess] -Eye Opening Spontaneous -Motor Obeys Commands -Verbal Oriented [Total] -Coma Scale Total 15 10/23/24 1215 <Electronically signed by Sathish Crespo MD> Cosigner Signature (if applicable): CC: Dr. Savage Gilliam MD~ Signed [facility] Work Phone: [phone] Consult note [facility] Medical Records Department [address] [place] [address] Consultation - Neurology 10/23/24 1209 MR#: [id number] Acct: [id number] Name: MARK MARTIN Rep #:[id number] : 1950 74 From: Sathish Crespo MD PCP: Dr. Savage Gilliam MD Status:ADM IN Location: [place] [address] Assessment and Plan: Stroke Assessment/Plan MARK MARTIN is a 74 F with a history of afib on warfarin, AVR with bioprestethic valve, INR 1.2, presents with Left Leg weakness. brain CT shows 1. Acute infarct right anterior temporal lobe, #2 advanced small vessel ischemic changes with scattered foci of old lacunar infarcts, #3 noacute hemorrhage or mass effect. Neurological examination shows NIH 2, LLE drift. Neuroimaging shows R corticalstroke. Unclear timing, but new from previous. subtherapeutic INR. Obtain MRI. Can start AC, given prob > 4 days old. - Anti-Coag medication: Coumadin. She needs closer monitoring. She states shehas been taking her medication, but low INR may state otherwise. - Occupational/ Physical therapy consults - NPO until swallow evaluation. IVF until able to take po - DVT prophylaxis with SCDs and heparin SQ - Vascular risk factor modification. The following are the recommended guidelines: LDL Goal < 70 Smoking Cessation Diabetes Management assistant terminal manager blood pressure control should achieve <130/80 mmHg. BP managementshould aim to achievelong term contorl in a reasonable amount of time, taking into consideration the individual patient's requirements and characteristics. Weight Management: Goal for BMI is 18.5 -24.9 kg/m2 Alcohol: No more than 2 drinks/day for men or 1 drink/day for non- women - Promote lifestyle modification: weight control, physical activity, moderation of alcohol intake, moderate sodium intake. Followup with PCP in 1-2 weeks, and in Neurology clinic in 6-12 weeks HPI Consult Data Date of Consult: 10/23/24 HPI Narrative HPI Narrative: MARK MARTIN, is a 74 F who presents LLE weakness. According to the patient she has had this left legweakness for the past 3 months and she has status post left knee arthroplasty as well. But talking with her more, she was leaning to left more yesterday so her son brought her in. When the ER physician when he was speaking with her son who says she had an episode of dizziness inthe store and some facial drooping(laterality was not known) but that did not last very long. It is unclear when her last known well was since she has had this left leg weakness for the past 3 months. Patient does have significant past medical history of stroke 25 years ago approximately withno significant residual neurologic deficits. She also has a history of aortic valve replacement with bioprosthetic valve. Patient does continue to smoke and is on warfarin for A- fib. Patient is feeling better since arrival to the emergency room and has no current new neurologic deficits at this time. 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 Atrial fibrillation Rheumatic fever Mitral prolapse Right renal artery stenosis 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 Anemia Depression Rheumatoid arthritis GERD (gastroesophageal reflux disease) COPD (chronic obstructive pulmonary disease) Deafness in left ear Myocardial infarct Contusion of face Unsteady gait Abrasion of left ring finger Diabetes HTN (hypertension) Home Medications ?Medication ?Instructions ?Recorded ?Last Taken ?Type multivitamin (Daily Multi-Vitamin 1 tab PO DAILY 02/11 Unknown History tablet) aspirin 81 mg chewable tablet 81 mg PO BREAKFAST #1 TA B 02/13/23 Unknown Rx amlodipine 10 mg tablet 10 mg PO QDAY 01/19/24 Unkno wn History atorvastatin 40 mg tablet 40 mg PO QHS 02/15/24 Unknow n History carbamazepine 200 mg tablet 400 mg PO Q12H 02/15/24 Un known History valsartan 160 mg tablet 160 mg PO BID #180 tabs 04/03 Unknown Rx carvedilol 25 mg tablet 25 mg PO BID #180 tabs 06/13 Unknown Rx hydralazine 100 mg tablet 100 mg PO TID #270 TABLETS 0 06/14/24 Unknown Rx warfarin 4 mg tablet 4 mg PO DAILY 10/22/24 Unkno wn History Allergy/AdvReac Type Severity Reaction Status Date / Time [facility] Allergy Severe Anaphylaxis Verified 10/22/24 21:15 ibuprofen Allergy Rash Verified 10/22/24 21:15 naproxen (From Naprosyn) Allergy Rash Verified 10/22/24 21:15 codeine AdvReac Vertigo Verified 10/22/24 21:15 Family History Brother Cancer CAD (coronary artery disease) Diabetes Heart disease Mother Diabetes Hypertension Heart disease Father Hypertension Myocardial infarction Heart disease Son Hypertension Surgical History History of stapedectomy Hx of hernia repair Hx of total knee arthroplasty (02/21/20) Hx of CABG (07/09/22) S/P left knee arthroscopy Aortic valve replaced Social History Smoking Status: Light Smoker (<10/day) Tobacco: How many years used: 20 Vital Signs Vital Signs Vital Signs: 10/22/24 21:15 10/22/24 21:26 10/22/24 21:46 Temperature 98 F Temperature Source Temporal Pulse Rate 82 74 Pulse Strength Respiratory Rate 18 18 Respiratory Effort Normal Non-Labored Respiratory Depth Respiratory Pattern Normal Blood Pressure 145/100 H 139/94 H Blood Pressure Mean 115 109 Blood Pressure Source Blood Pressure Position Blood Pressure Location Pulse Ox 99 99 Oxygen Delivery Method Room Air Room Air 10/22/24 23:00 10/23/24 00:00 10/23/24 01:00 Temperature 98.2 F Temperature Source Pulse Rate 86 98 70 Pulse Strength Respiratory Rate 18 18 18 Respiratory Effort Respiratory Depth Respiratory Pattern Blood Pressure 167/91 H 165/102 H 147/96 H Blood Pressure Mean 116 123 113 Blood Pressure Source Blood Pressure Position Blood Pressure Location Pulse Ox 99 98 98 Oxygen Delivery Method Room Air Room Air 10/23/24 02:00 10/23/24 02:39 10/23/24 05:40 Temperature 98.1 F 98.3 F Temperature Source Oral Oral Pulse Rate 73 68 Pulse Strength Respiratory Rate 16 18 Respiratory Effort Normal Non-Labored Respiratory Depth Normal Respiratory Pattern Normal Blood Pressure 171/108 H 163/109 H Blood Pressure Mean 129 127 Blood Pressure Source Monitor Monitor Blood Pressure Position Semi-Fowlers Semi-Fowlers Blood Pressure Location Right Arm Right Arm Pulse Ox 98 96 Oxygen Delivery Method Room Air Room Air Room Air 10/23/24 07:55 10/23/24 07:58 10/23/24 09:00 Temperature 97.2 F L Temperature Source Temporal Pulse Rate 66 Pulse Strength Normal (2+) Respiratory Rate 18 Respiratory Effort Normal Non-Labored Respiratory Depth Normal Respiratory Pattern Normal Blood Pressure 163/113 H Blood Pressure Mean 129 Blood Pressure Source Monitor Blood Pressure Position Semi-Fowlers Blood Pressure Location Right Arm Pulse Ox 96 Oxygen Delivery Method Room Air Room Air Weight Weight: 53 kg Body Mass Index (BMI) 22.1 EEG Results Procedure Details EEG Procedure Details: MARK MARTIN is a 74 year old F with a past medical history of , who presentsfor evaluation of Electroencephalogram on DATE at TIME Lab / Micro Data 10/23/24 05:10 10/23/24 05:10 Labs: Laboratory Results - last 24 hr 10/22/24 21:45: WBC 5.7, RBC 4.20, Hgb 13.5, Hct 39.7, MCV 94.5, MCH 32.1 H, MCHC 34.0, RDW Std Deviation 43.9, RDW Coeff of Geena 12.7, Plt Count 177, MPV 9.9, Immature Gran % (Auto) 0.500, Neut % (Auto) 60.2, Lymph % (Auto) 28.7, Fannin% (Auto) 9.3, Eos % (Auto) 0.3, Baso % (Auto) 1.0, Absolute Neuts(auto) 3.4, Absolute Lymphs (auto) 1.64, Nucleated RBC % 0, PT 15.4 H, INR 1.2, Sodium 138, Potassium 4.2, Chloride 104, Carbon Dioxide 23.9, Anion Gap 10, BUN 11, Creatinine 0.57 L, Estim Creat Clear Calc 45.85 L, Est GFR (MDRD) Non-Af 95, BUN/Creatinine Ratio 19.4, Glucose 131 H, Hemoglobin A1c 5.7, Calcium 9.1, TotalBilirubin 0.28, Direct Bilirubin 0.13, AST 22, ALT 17, Alkaline Phosphatase 71, Total Protein 6.2, Albumin 4.0, Globulin 2.2, TSH 1.400 10/22/24 23:35: Urine Opiates Screen NEGATIVE, U Buprenorphine Qual NEGATIVE, UrOxycodone Screen NEGATIVE, Urine Methadone Screen NEGATIVE, Urine Fentanyl Screen NEGATIVE, Ur Barbiturates Screen NEGATIVE, Ur Phencyclidine Scrn NEGATIVE, Ur Amphetamines Screen NEGATIVE, U Benzodiazepines Scrn NEGATIVE, Urine Cocaine Screen NEGATIVE, U Cannabinoids Screen NEGATIVE 10/23/24 05:10: WBC 6.5, RBC 4.13 L, Hgb 13.4, Hct 38.8, MCV 93.9, MCH 32.4 H, MCHC 34.5, RDW Std Deviation 44.3 H, RDW Coeff of Geena 12.8, Plt Count 175, MPV 9.9, Immature Gran % (Auto) 0.300, Neut %(Auto) 50.9, Lymph % (Auto) 39.7, Fannin% (Auto) 7.4, Eos % (Auto) 0.6, Baso % (Auto) 1.1 H, AbsoluteNeuts (auto) 3.3, Absolute Lymphs (auto) 2.58, Nucleated RBC % 0, PT 16.7 H, INR 1.3, Sodium 140, Potassium 3.5, Chloride 104, Carbon Dioxide 24.4, Anion Gap 11, BUN 8, Creatinine 0.51 L, Estim CreatClear Calc 45.85 L, Est GFR (MDRD) Non-Af 97, BUN/Creatinine Ratio 16.6, Glucose 108 H, Calcium 9.0, Triglycerides 148, Cholesterol 124, LDL Cholesterol, Calc 53, VLDL Cholesterol 30, HDL Cholesterol 42, Cholesterol/HDL Ratio 2.99 Rhythm Strip Rhythm Strip: A-fib Rate: 85 Ectopy: None Imaging Radiology Impression Brain CT 10/22/24 21:50 IMPRESSION: 1. Acute infarct involving the anterior right temporal lobe. 2. Advanced chronic small-vessel ischemic changes with numerous scattered foci of old lacunar infarcts in the bilateral cerebral and cerebellar hemispheres. 3. No acute hemorrhage, extra-axial collection, or mass-effect. Reading Location: [facility] Knee X-Ray 10/22/24 21:50 IMPRESSION: Intact left knee arthroplasty. Reading Location: [facility] Active Medications Active Medications Active Medications: Current Medications Generic Name Dose Route Start Last Admin Trade Name Freq PRN Reason Stop Dose Admin Amlodipine Besylate 10 mg 10/23/24 10:00 10/23/24 09:13 Amlodipine 10 Mg Tablet PO Not Given DAILY ERIN Protocol Carbamazepine 400 mg 10/23/24 06:00 10/23/24 05:35 Carbamazepine 200 Mg Tablet PO 400 mg Q12H ERIN Administration Enoxaparin Sodium 50 mg 10/23/24 06:00 10/23/24 05:35 Enoxaparin 60 Mg/0.6 Ml Syringe SC 50 mg Q12@0600,1800 ERIN Administration Hydralazine HCl 5 mg 10/23/24 02:00 Hydralazine 20 Mg/Ml Vial IV 10/24/24 02:01 Q30M PRN maintain BP parameters with HR <60 Sodium Chloride 250 mls @ 15 mls/hr 10/23/24 01:43 IV .[id number] PRN Saline Flush Sodium Chloride 250 mls @ 15 mls/hr 10/23/24 01:43 IV .[id number] PRN Additional IVPB Infusion Labetalol HCl 10 - 20 mg 10/23/24 02:00 Labetalol 20 Mg/4 Ml Vial IV 10/24/24 02:01 Q10M PRN PRN maintain BP parameters with HR >/=60 Multivitamins 1 tablet 10/23/24 08:00 10/23/24 09:12 Multivitamins,Therapeutic Tablet PO 1 tablet DAILYCM [facility] Administration Sodium Chloride 10 - 40 ml 10/23/24 01:43 0.9% Saline Lock 10 Ml Syringe IV UD PRN SALINE FLUSH Warfarin Sodium 4 mg 10/23/24 17:00 Warfarin (Pbkc) 4 Mg Tablet PO DAILY@[facility] NIHSS NIHSS Nursing Documentation NIHSS Nursing Documentation: NIH Stroke Scale Start: 10/22/24 21:28 Freq: Status: Discharge Protocol: Activity Type Activity Date Activity User E-sign Co-sign Detail Recorded Client Recorded Date Recorded By Document 10/22/24 21:29 [facility] [id number] 10/22/24 21:35 AJL 10/22/24 21:29 NIH Stroke Scale [NIHSS] A score of 0 is normal or asymptomatic . Total possible score is 42. Inpatient: RN or Physician to activate a stroke alert for onset of new stroke symptoms or with NIHSS increase >/= 3 points. Following change in neurological status, NIHSS will be performed per physician order or more frequently PRN. -1a. Level of Consciousness 0 - Alert; keenly responsive -1b. LOC Questions 0 - Answers BOTH questions correctly -1c. LOC Commands 0 - Performs BOTH tasks correctly -2. Best Gaze 0 - Normal -3. Visual 0 - No visual loss -4. Facial Palsy 0 - Normal symmetrical movements -5a. Left Arm 0 - No drift; arm holds 90 ( or 45) degrees for full 10 seconds -5b. Right Arm 0 - No drift; arm holds 90 ( or 45) degrees for full 10 seconds -6a. Left Leg 0 - No drift; leg holds 30- degree position for full 5 seconds -6b. Right Leg 0 - No drift; leg holds 30- degree position for full 5 seconds -7. Limb Ataxia 0 - Absent -8. Sensory 0 - Normal; no sensory loss -9. Best Language 0 - No aphasia; normal -10. Dysarthria 0 - Normal -11. Extinction and Inattention 0 - No abnormality -Total 0 Query Text:A score of 0 is normal or asymptomatic. Total possible score is 42 . ED: Notify Physician for NIHSS increase by > / = 3 points. Inpatient: RN or Physician to activate a stroke alert for NIHSS increase of > / = 3 points. 10/22/24 21:30 ED Nursing Note by Sarah Valente Pt struggled to lift the left leg as high as the right leg, however the patient reports it is because it feels weak, not painful. The patient states she has been having issues with this knee for the past few months. And the patient reports a previous stroke 20 years ago that affected her left side but it returned to baseline afterwards. The patient does state, it feels cold from my knee to my foot and I have been trying to follow up with Dr. Rossi for my knee replacement a few years ago. Initialized on 10/22/24 21:30 - END OF NOTE NIHSS: Ischemic Stroke/TIA Start: 10/23/24 01:42 Text: For PCU Patients: NIH and Neuro Check every 4 Status: Active hours, PRN and with change in RN caregiver. Freq: [id number] Protocol: Activity Type Activity Date Activity User E-sign Co-sign Detail Recorded Client Recorded Date Recorded By Document 10/23/24 07:56 TEDDY [id number] 10/23/24 08:01 TEDDY 10/23/24 07:56 -1a. Level of Consciousness 0 - Alert; keenly responsive -1b. LOC Questions 1 - Answers ONE question correctly -1c. LOC Commands 0 - Performs BOTH tasks correctly -2. Best Gaze 0 - Normal -3. Visual 0 - No visual loss -4. Facial Palsy 0 - Normal symmetrical movements -5a. Left Arm 0 - No drift; arm holds 90 ( or 45) degrees for full 10 seconds -5b. Right Arm 0 - No drift; arm holds 90 ( or 45) degrees for full 10 seconds -6a. Left Leg 0 - No drift; leg holds 30- degree position for full 5 seconds -6b. Right Leg 0 - No drift; leg holds 30- degree position for full 5 seconds -7. Limb Ataxia 0 - Absent -8. Sensory 0 - Normal; no sensory loss -9. Best Language 0 - No aphasia; normal -10. Dysarthria 0 - Normal -11. Extinction and Inattention 0 - No abnormality -Total 1 Query Text:A score of 0 is normal or asymptomatic. Total possible score is 42 . ED: Notify Physician for NIHSS increase by > / = 3 points. Inpatient: RN or Physician to activate a stroke alert for NIHSS increase of > / = 3 points. Coma Scale [Assess] -Eye Opening Spontaneous -Motor Obeys Commands -Verbal Oriented [Total] -Coma Scale Total 15 10/23/24 1215 Cosigner Signature (if applicable): CC: Dr. Savage Gilliam MD~ Signed [facility]09-16-2025 Evaluation note* Diagnosis Onset Date Resolution Status Admit Date Acute ischemic stroke inactive Sep tember 2024 12:15am [facility] Brain TIA inactive October 12:15am Chronic pain of left knee inactive October 23, 2024 12:15am COPD (chronic obstructive pulmonary disease) inactive October 12:15am Depression inactive October 12:15am GERD (gastroesophageal reflux disease) inactive October 23, 2024 12:15am History of transcatheter aortic valve replacement (TAVR) July 09, 2022 inactive October 23, 2024 12:15am Hx of CABG July 09, 2022 inactive October 23, 2024 12:15am Hyperlipidemia inactive October 23, 2024 12:15am Left leg weakness inactive [facility] 2024 12:15am Subtherapeutic anticoagulation inactive October 23, 2024 12:15am [facility] Work Phone: 1(707) 171-953509-16-2025 History and physical note Author Forrest Bonilla [facility] Note Date/Time October 23, 2024 12:15am [facility] Medical Records Department [address] [place] [id number] History & Physical Exam 10/23/24 0002 MR#: [id number] Acct: [id number] Name: MARK MARTIN Rep #:[id number] : 1950 74 From: Forrest Bonilla MD PCP: Dr. Savage Gilliam MD Status:REG ER Location: ED HPI - General General Date of Admission: 10/23/24 Date of Service: 10/23/24 Chief Complaint: Left leg weakness HPI Narrative MARK MARTIN, is a 74 F who presents to the emergency room with chief complaint ofleft leg weakness. Patient was brought in by her son this evening to be evaluated after they were shopping at a [employer] and she exhibited left leg weakness. According to the patient she has had this left leg weakness for the past 3 months and she has status post left knee arthroplasty as well. Further history was obtained by the ER physician when he was speaking with her son who says she had an episode of dizziness in the store and some facial drooping(laterality was not known) but that did not last very long. It is unclear when her last known well was since she has had this left leg weakness for the past 3 months. Patient does have significant past medical history of stroke 25 years ago approximately with no significant residual neurologic deficits. She also has a history of aortic valve replacement with bioprostheticvalve. Patient does continue to smoke and is on warfarin for A-fib. Patient isfeeling better since arrival to the emergency room and has no current new neurologic deficits at this time. Laboratory studies reveal white blood cell count of 5.7, hemoglobin 13.5, hematocrit 39.7, platelets 177, INR 1.2, sodium 138, potassium 4.2, chloride 104, bicarb 23.9, BUN 11, creatinine 0.57, glucose 131, x-ray knee shows intact left knee arthroplasty, brain CT shows 1. Acute infarct right anterior temporal lobe, #2 advanced small vessel ischemic changes with scattered foci of old lacunar infarcts, #3 no acute hemorrhage or mass effect. Despite not having new neurologic deficits at present time and having positive findings on CT scan patient will be admitted to the progressive care unit and worked up further for stroke. Patient does wish to be full code at this time. [facility] Medical History (Updated 10/22/24 @ 23:[address] Ron Sesay MD) TIA (transient ischemic attack) Thrombocytopenia SOB (shortness of breath) Vasovagal near syncope Bradycardia Renal artery stenosis Aortic valve stenosis History of transcatheter aortic valve replacement (TAVR) (07/09/22) History of cardioversion (04/14/23) Perforated tympanic membrane Chronic headaches Generalized weakness Multiple falls Carotid artery stenosis Orthostatic hypotension Hyperlipidemia Epilepsy Tobacco abuse Acute stroke due to ischemia alf (current) use of 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 Atrial fibrillation Rheumatic fever Mitral prolapse Right renal artery stenosis 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 Anemia Depression Rheumatoid arthritis GERD (gastroesophageal reflux disease) COPD (chronic obstructive pulmonary disease) Deafness in left ear Myocardial infarct Contusion of face Unsteady gait Abrasion of left ring finger Diabetes HTN (hypertension) Home Medications ?Medication ?Instructions ?Recorded ?Last Taken ?Type multivitamin (Daily Multi-Vitamin 1 tab PO DAILY 02/11 Unknown History tablet) aspirin 81 mg chewable tablet 81 mg PO BREAKFAST #1 TA B 02/13/23 Unknown Rx amlodipine 10 mg tablet 10 mg PO QDAY 01/19/24 Unkno wn History atorvastatin 40 mg tablet 40 mg PO QHS 02/15/24 Unknow n History carbamazepine 200 mg tablet 400 mg PO Q12H 02/15/24 Un known History valsartan 160 mg tablet 160 mg PO BID #180 tabs 04/03 Unknown Rx carvedilol 25 mg tablet 25 mg PO BID #180 tabs 06/13 Unknown Rx hydralazine 100 mg tablet 100 mg PO TID #270 TABLETS 0 06/14/24 Unknown Rx warfarin 4 mg tablet 4 mg PO DAILY 10/22/24 Unkno wn History Allergy/AdvReac Type Severity Reaction Status Date / Time [facility] Allergy Severe Anaphylaxis Verified 10/22/24 21:15 ibuprofen Allergy Rash Verified 10/22/24 21:15 naproxen (From Naprosyn) Allergy Rash Verified 10/22/24 21:15 codeine AdvReac Vertigo Verified 10/22/24 21:15 Family History Brother Cancer CAD (coronary artery disease) Diabetes Heart disease Mother Diabetes Hypertension Heart disease Father Hypertension Myocardial infarction Heart disease Son Hypertension Surgical History History of stapedectomy Hx of hernia repair Hx of total knee arthroplasty (02/21/20) Hx of CABG (07/09/22) S/P left knee arthroscopy Aortic valve replaced Social History Smoking Status: Light Smoker (<10/day) Tobacco: How many years used: 20 ROS Constitutional Constitutional: Denies chills or fever(s) Eyes Eyes: Denies blurry vision or change in vision ENT HEENT: Denies abnormal hearing or dysphagia Cardiovascular Cardiovascular: Denies chest pain or syncope Respiratory/Chest Respiratory/Chest: Denies cough or shortness of breath at rest Gastrointestinal Gastrointestinal: Denies abdominal pain, diarrhea, melena, nausea or vomiting Genitourinary Genitourinary: Denies dysuria Musculoskeletal Musculoskeletal: Reports joint stiffness and muscle weakness; Denies back pain or extremity pain Integumentary Integumentary: Denies dry skin Neurologic Neurologic: Reports dizziness and focal weakness; Denies abnormal speech or confusion Psychiatric Psychiatric: Denies anxiety Vital Signs Vital Signs Vital Signs: 10/22/24 21:15 10/22/24 21:26 10/22/24 21:46 Temperature 98 F Temperature Source Temporal Pulse Rate 82 74 Respiratory Rate 18 18 Respiratory Effort Normal Non-Labored Respiratory Pattern Normal Blood Pressure 145/100 H 139/94 H Blood Pressure Mean 115 109 Pulse Ox 99 99 Oxygen Delivery Method Room Air Room Air 10/22/24 23:00 Temperature Temperature Source Pulse Rate 86 Respiratory Rate 18 Respiratory Effort Respiratory Pattern Blood Pressure 167/91 H Blood Pressure Mean 116 Pulse Ox 99 Oxygen Delivery Method Room Air Weight Weight: 121 lb 0.54 oz Body Mass Index (BMI) 22.8 Physical Exam Const alert, oriented x3, no apparent distress and well nourished General Appearance: cooperative HEENT normocephalic and head/scalp atraumatic Eyes PERRL and EOMs intact bilaterally Neck no lymphadenopathy Lymph Lymphatic: no lymphadenopathy noted Resp normal respiratory effort, normal air movement and clear to auscultation bilaterally Cardio regular rate, S1 normal heart sound and S2 normal heart sound Rhythm: abnormal rhythm irregularly irregular Heart Sounds: murmur systolic GI normal to inspection, nondistended, normoactive bowel sounds Extremity normal capillary refill and no clubbing, cyanosis or edema Skin General Skin Exam: no breakdown and turgor normal Neuro CN's II-XII intact bilaterally, no focal motor deficits and no sensory deficits noted Neuro Narrative: Slight weakness in left leg as compared to right Motor Exam: strength 5/5 throughout Psych thought process normal, cooperative and affect normal Results Lab / Micro Data 10/22/24 21:45 10/22/24 21:45 Labs: Laboratory Results - last 24 hr 10/22/24 21:45: WBC 5.7, RBC 4.20, Hgb 13.5, Hct 39.7, MCV 94.5, MCH 32.1 H, MCHC 34.0, RDW Std Deviation 43.9, RDW Coeff of Geena 12.7, Plt Count 177, MPV 9.9, Immature Gran % (Auto) 0.500, Neut % (Auto) 60.2, Lymph % (Auto) 28.7, Fannin% (Auto) 9.3, Eos % (Auto) 0.3, Baso % (Auto) 1.0, Absolute Neuts (auto) 3.4, Absolute Lymphs (auto) 1.64, Nucleated RBC % 0, PT 15.4 H, INR 1.2, Sodium 138, Potassium 4.2, Chloride 104, Carbon Dioxide 23.9, Anion Gap 10, BUN 11, Creatinine 0.57 L, Estim Creat Clear Calc 45.85 L, Est GFR (MDRD) Non-Af 95, BUN/Creatinine Ratio 19.4, Glucose 131 H, Calcium 9.1 Rhythm Strip Rhythm Strip: A-fib Rate: 85 Ectopy: None Imaging Radiology Impression Brain CT 10/22/24 21:50 IMPRESSION: 1. Acute infarct involving the anterior right temporal lobe. 2. Advanced chronic small-vessel ischemic changes with numerous scattered foci of old lacunar infarcts in the bilateral cerebral and cerebellar hemispheres. 3. No acute hemorrhage, extra-axial collection, or mass-effect. Reading Location: [facility] Knee X-Ray 10/22/24 21:50 IMPRESSION: Intact left knee arthroplasty. Reading Location: [facility] Assessment & Plan Assessment/Plan (1) Subtherapeutic anticoagulation: (2) Chronic pain of left knee: (3) Left leg weakness: (4) Acute ischemic stroke: (5) Brain TIA: (6) Hx of CABG: (7) History of transcatheter aortic valve replacement (TAVR): (8) Hyperlipidemia: (9) Atrial fibrillation: (10) Depression: (11) GERD (gastroesophageal reflux disease): (12) COPD (chronic obstructive pulmonary disease): PLAN: Plan 1 acute infarct right anterior lobe by CT scan?admit patient to progressive careunit, initiate neurologic evaluations every 4 hours and order MRI/MRA head and neck in the a.m. consult teleneurology. Patient is anticoagulated on warfarin at this time and will continue to monitor INR as she was subtherapeutic and therefore will need Lovenox until she is therapeutic again. Will follow stroke protocol for management of hypertension 2. Left leg weakness?chronic status post left knee arthroplasty will order PT consult to evaluate and treat for strength 3. Hyperlipidemia?monitor fasting lipid panel continue statin medication 4. Atrial fibrillation?anticoagulation and rate control 5. Depression?mood stable continue routine home medications 6 smoking?cessation strongly encouraged 7. COPD?continue inhaler medications 8. DVT prophylaxis?patient is on anticoagulation 9. CODE STATUS full code verified Charges/Coding Visit Charges Inpatient E&M: 19731 Init Hosp L2 10/23/24 0015 <Electronically signed by Forrest Bonilla MD> Cosigner Signature (if applicable): CC: Dr. Savage Gilliam MD; Dr. Forrest Bonilla MD~ Signed [facility] Work Phone: [phone]) 352-954409-16-2025 Discharge summary Author Ron Sesay [facility] Note Date/Time October 22, 2024 11:54pm [facility] Medical Records Department [address] [place] [address] Emergency Department Summary 10/22/24 MR#: [id number] Acct: [id number] Name: MARK MARTIN Rep #:[id number] : 1950 74 From: Ron Sesay MD PCP: Dr. Savage Gilliam MD Status:REG ER Location: ED HPI History of Present Illness Chief Complaint: Weakness Informant: patient Narrative Narrative: 74-year-old female states she is here to have her left lower extremity weakness evaluated. She states it has been like this for several months, and she feels that the issue is in her left knee which gave her some issues walking at [facility] where she was with her son, and she states that her son wanted her to come and be evaluated. She states today is no different than any other day with regards to the symptoms. She states her left knee is painful and stiff, and she feels like her weakness is related to that. She denies weakness in her arm or her face or trouble speaking or any other neurologic symptoms. She has not fallen or injured anything recently. She is due to follow-up with Dr. Rossi for her knee. She states for the last couple months she has also felt like it is cold from her knee down to her foot. She denies claudication symptoms or color changes. [facility] Medical History (Updated 10/22/24 @ 23:[address] Ron Sesay MD) TIA (transient ischemic attack) Thrombocytopenia SOB (shortness of breath) Vasovagal near syncope Bradycardia Renal artery stenosis Aortic valve stenosis History of transcatheter aortic valve replacement (TAVR) (07/09/22) History of cardioversion (04/14/23) Perforated tympanic membrane Chronic headaches Generalized weakness Multiple falls Carotid artery stenosis Orthostatic hypotension Hyperlipidemia Epilepsy Tobacco abuse Acute stroke due to ischemia alf (current) use of 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 Atrial fibrillation Rheumatic fever Mitral prolapse Right renal artery stenosis 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 Anemia Depression Rheumatoid arthritis GERD (gastroesophageal reflux disease) COPD (chronic obstructive pulmonary disease) Deafness in left ear Myocardial infarct Contusion of face Unsteady gait Abrasion of left ring finger Diabetes HTN (hypertension) Home Medications ?Medication ?Instructions ?Recorded ?Last Taken ?Type multivitamin (Daily Multi-Vitamin 1 tab PO DAILY 02/11 Unknown History tablet) aspirin 81 mg chewable tablet 81 mg PO BREAKFAST #1 TA B 02/13/23 Unknown Rx amlodipine 10 mg tablet 10 mg PO QDAY 01/19/24 Unkno wn History atorvastatin 40 mg tablet 40 mg PO QHS 02/15/24 Unknow n History carbamazepine 200 mg tablet 400 mg PO Q12H 02/15/24 Un known History valsartan 160 mg tablet 160 mg PO BID #180 tabs 04/03 Unknown Rx carvedilol 25 mg tablet 25 mg PO BID #180 tabs 06/13 Unknown Rx hydralazine 100 mg tablet 100 mg PO TID #270 TABLETS 0 06/14/24 Unknown Rx warfarin 4 mg tablet 4 mg PO DAILY 10/22/24 Unkno wn History Allergy/AdvReac Type Severity Reaction Status Date / Time [facility] Allergy Severe Anaphylaxis Verified 10/22/24 21:15 ibuprofen Allergy Rash Verified 10/22/24 21:15 naproxen (From Naprosyn) Allergy Rash Verified 10/22/24 21:15 codeine AdvReac Vertigo Verified 10/22/24 21:15 Family History Brother Cancer CAD (coronary artery disease) Diabetes Heart disease Mother Diabetes Hypertension Heart disease Father Hypertension Myocardial infarction Heart disease Son Hypertension Surgical History History of stapedectomy Hx of hernia repair Hx of total knee arthroplasty (02/21/20) Hx of CABG (07/09/22) S/P left knee arthroscopy Aortic valve replaced Social History Smoking Status: Light Smoker (<10/day) Tobacco: How many years used: 20 ROS ROS ED Constitutional Constitutional ED: Denies chills, fever(s) or weakness Eyes Eyes: Denies change in vision or diplopia ENT ENT ED: Denies rhinorrhea or sore throat Cardiovascular Cardiovascular: Denies chest pain, palpitations or racing heartbeat Respiratory/Chest Respiratory/Chest: Denies cough or dyspnea Gastrointestinal Gastrointestinal: Denies abdominal pain, diarrhea, nausea or vomiting Genitourinary Genitourinary ED: Denies dysuria or hematuria Musculoskeletal Musculoskeletal: Reports as per HPI, extremity pain and joint stiffness; Denies back pain or neck pain Integumentary Denies abscess or rash Neurologic Neurologic: Reports weakness; Denies headache(s) or paresthesias Psychiatric Psychiatric: Denies anxiety or suicidal thoughts EXAM Physical Exam Const Vital Signs: 10/22/24 21:15 10/22/24 21:26 10/22/24 21:46 Temperature 98 F Temperature Source Temporal Pulse Rate 82 74 Respiratory Rate 18 18 Respiratory Effort Normal Non-Labored Respiratory Pattern Normal Blood Pressure 145/100 H 139/94 H Blood Pressure Mean 115 109 Pulse Ox 99 99 Oxygen Delivery Method Room Air Room Air 10/22/24 23:00 Temperature Temperature Source Pulse Rate 86 Respiratory Rate 18 Respiratory Effort Respiratory Pattern Blood Pressure 167/91 H Blood Pressure Mean 116 Pulse Ox 99 Oxygen Delivery Method Room Air Positive well nourished and well developed General Appearance ED: well developed and NAD HEENT Reports moist mucous membranes normocephalic and atraumatic Eyes PERRL and EOMs intact bilaterally Neck full ROM and supple Resp normal respiratory effort and clear to auscultation bilaterally Cardio regular rate, regular rhythm and no murmurs Peripheral Pulses: dorsalis pedis pulses present bilateral 2+ GI non-tender and non-distended Auscultation: normoactive bowel sounds Palpation: soft Back/Spine no CVA tenderness General Back: other FROM Extremity normal to inspection Extremity Narrative: Limited range of motion of the left knee due to pain and stiffness according to the patient. No erythema, warmth, effusion. Well-healed anterior TKA surgical incision. General Extremety ED: Negative for edema, pulses abnormal or tenderness General Extremity: Negative for edema or pulses abnormal Neuro oriented x3, CN's II-XII intact bilaterally and no sensory deficits noted Neuro Narrative: Little bit of drift due to weakness in her left lower extremity proximally even with knee in extension, not limited by pain, as well as mild sensory asymmetry between the knee and the ankle. No other deficits. Normal speech no aphasia ordysarthria, no dysmetria Sensorium / Orientation: awake and alert Motor Exam: strength abnormal flexion (left thigh 4+) Psych mental status grossly normal Skin no rashes or lesions noted and no wounds NIHSS NIHSS Initial: 1a Level of Consciousness: 0 1b LOC Questions (Score 2 if aphasic/stupor): 0 1c LOC Commands (Only score 1st attempt): 0 2 Best Gaze (If aphasic, use reflexive mvmts.): 0 3 Visual: 0 4 Facial Palsy: 0 5 Motor Arm Right (UN = amputation/fusion): 0 5 Motor Arm Left: 0 6 Motor Leg Right: 0 6 Motor Leg Left: 1 7 Limb ataxia (Only + if out of proportion): 0 8 Sensory (Aphasia/stupor=0 or 1, coma=2): 1 9 Best Language: 0 10 Dysarthria (mute, coma=2, intubated=UN): 0 11 Extinction and Inattention (only scored if +): 0 Total Score: 2 MDM MDM MDM Narrative Medical decision making narrative: My suspicion is that this patient has a peripheral neuropathy. When asked her about history of stroke, she states she did have a stroke 25 years ago that affected her left side and made it weak. However she states her left lower extremity came up to normal before getting weak several months ago. I advised her that I could do a CT and some other tests here to evaluate for a stroke recently. She has a history of A- fib and she is anticoagulated for that, EKG shows that she is indeed in A-fib right now it is rate controlled. She is on warfarin; she does not know why she is not on a NOAC. She states her INR was recently tested and was good, but she can't remember what the level was. I sentanother. Plan CT was performed since she does not have symptoms that are acute, I reviewed the images as well as the result which I agree with. It is consistent with an acute ischemic stroke in the right temporal lobe. Unclear if this couldbe causing her left lower extremity weakness which is the only neurologic abnormality I see on exam. In comparison with the scan she had in January of last year, this is new. That was the most recent CT that she has had here. Sheconfirms when I discussed with her again that she has been having this left leg weakness and partial sensory loss from the knee down for the past 2 or 3 months. She states it was around the time that she had the knee surgery. She does not know exactly. My concern is that the infarct is not necessarily in an area that would explain her left lower extremity weakness. I discussed with [facility] stroke neurology. Fromwhat the neurologist told me, it sounded like he advised carotid testing possibly an MRI, but if she truly has had symptoms for 3 months obviously that does not need to be done emergently. Her INR came back subtherapeutic at 1.2. Almost 2 hours into the patient's length of stay, after being in and out of the room multiple times, I was able to speak with the patient's son for the first time. It was at this point that he stated the reason that she was brought here which was information not available before I spoke with him, was that when they were at the [employer] store prior to coming, the patient was acting unusual and somewhat disoriented, and then she continued to look and lean to the left as if she was unable to recognize her right side, and the right side of her face looked droopy/weak. At that point they were on the way out past the embroidery specialist who told him that he needed to get her to the hospital immediately. He agrees that all of that is resolved right now. Given all of that and the fact she is subtherapeutic on her INR, I think admitting her for further testing and monitoring is indicated. She is given a dose of Lovenox. Discussed with hospitalist. History & Record Review Additional record(s) reviewed:: Prior outpatient record (Cardiology visit 02/15/2024 confirming bioprosthetic aortic valve replacement) Lab Data Attestation: I reviewed the patient's lab results. Labs: Laboratory Results - last 24 hr 10/22/24 21:45 WBC 5.7 RBC 4.20 Hgb 13.5 Hct 39.7 MCV 94.5 MCH 32.1 H MCHC 34.0 RDW Std Deviation 43.9 RDW Coeff of Geena 12.7 Plt Count 177 MPV 9.9 Immature Gran % (Auto) 0.500 Neut % (Auto) 60.2 Lymph % (Auto) 28.7 Fannin % (Auto) 9.3 Eos % (Auto) 0.3 Baso % (Auto) 1.0 Absolute Neuts (auto) 3.4 Absolute Lymphs (auto) 1.64 Nucleated RBC % 0 PT 15.4 H INR 1.2 Sodium 138 Potassium 4.2 Chloride 104 Carbon Dioxide 23.9 Anion Gap 10 BUN 11 Creatinine 0.57 L Estim Creat Clear Calc 45.85 L Est GFR (MDRD) Non-Af 95 BUN/Creatinine Ratio 19.4 Glucose 131 H Calcium 9.1 Radiography Diagnostic Testing: Clinical Impression(s) from Imaging Studies Brain CT 10/22/24 21:50 IMPRESSION: 1. Acute infarct involving the anterior right temporal lobe. 2. Advanced chronic small-vessel ischemic changes with numerous scattered foci of old lacunar infarcts in the bilateral cerebral and cerebellar hemispheres. 3. No acute hemorrhage, extra-axial collection, or mass-effect. Reading Location: [facility] Knee X-Ray 10/22/24 21:50 IMPRESSION: Intact left knee arthroplasty. Reading Location: [facility] 4 view x-ray series of the left knee on my interpretation shows intact hardware and is otherwise unremarkable. Rhythm Strip Rhythm Strip: A-fib Rate: 85 Ectopy: None EKG Initial EKG: Attestation: I personally reviewed and interpreted this EKG as follows: Interpretation: No Acute Injury Pattern and Atrial Fibrillation Management Discussion w/another healthcare provider: Hospitalist and Director Of Sales (Stroke neurology) Discharge Plan Dx/Rx/DC Orders Clinical Impression: Brain TIA, Acute ischemic stroke, Left leg weakness, Chronic pain of left knee,Subtherapeutic anticoagulation, Atrial fibrillation, History of transcatheter aortic valve replacement (TAVR) Disposition Disposition: [facility] Stroke Documentation Questions Stroke Team Activated: No (due to timing) Was Patient considered for Endovascular Intervention?: No-CTA not indicated IV Thrombolytic Administered: No (due to timing) What to do if you have Problems For any increased pain, shortness of breath, bleeding, nausea or vomiting, chestpain, or any unexpected problems, contact your Primary Care Provider. Call [facility] ([phone]) or report to the closest Emergency Room. Call 911 if necessary. 10/22/24 9069 <Electronically signed by Ron Sesay MD> Cosigner Signature (if applicable): CC: Dr. Savage Gilliam MD ~ Signed [facility] Work Phone: [phone] History and physical note [facility] Medical Records Department [address] [place] [address] History & Physical Exam 10/23/24 0002 MR#: [id number] Acct: [id number] Name: MARK MARTIN Rep #:[id number] : 1950 74 From: Forrest Bonilla MD PCP: Dr. Savage Gilliam MD Status:REG ER Location: ED HPI - General General Date of Admission: 10/23/24 Date of Service: 10/23/24 Chief Complaint: Left leg weakness HPI Narrative MARK MARTIN, is a 74 F who presents to the emergency room with chief complaint ofleft leg weakness. Patient was brought in by her son this evening to be evaluated after they were shopping at a [employer] store and she exhibited left leg weakness. According to the patient she has had this left leg weakness for the past 3 months and she has status post left knee arthroplasty as well. Further history was obtained by the ER physician when he was speaking with her son who says she had an episode of dizziness in the store and some facial drooping(laterality was not known) but that did not last very long. It is unclear when her last known well was since she has had this left leg weakness for the past 3 months. Patient does have significant past medical history of stroke 25 years ago approximately with no significant residual neurologic deficits. She also has a history of aortic valve replacement with bioprostheticvalve. Patient does continue to smoke and is on warfarin for A-fib. Patient isfeeling better since arrival to the emergency room and has no current new neurologic deficits at this time. Laboratory studies reveal white blood cell count of 5.7, hemoglobin 13.5, hematocrit 39.7,platelets 177, INR 1.2, sodium 138, potassium 4.2, chloride 104, bicarb 23.9, BUN 11, creatinine 0.57, glucose 131, x-ray knee shows intact left knee arthroplasty, brain CT shows 1. Acute infarct right anterior temporal lobe, #2 advanced small vessel ischemic changes with scattered foci of old lacunar infarcts, #3 no acute hemorrhage or mass effect. Despite not having new neurologic deficits at present time and having positive findings on CT scan patient will be admitted to the [facility] and worked up further for stroke. Patient does wish to be full code at this time. [facility] Medical History (Updated 10/22/24 @ 23:[address] Ron Sesay MD) TIA (transient ischemic attack) Thrombocytopenia SOB (shortness of breath) Vasovagal near syncope Bradycardia Renal artery stenosis Aortic valve stenosis History of transcatheter aortic valve replacement (TAVR) (07/09/22) History of cardioversion (04/14/23) Perforated tympanic membrane Chronic headaches Generalized weakness Multiple falls Carotid artery stenosis Orthostatic hypotension Hyperlipidemia Epilepsy Tobacco abuse Acute stroke due to ischemia alf (current) use of 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 Atrial fibrillation Rheumatic fever Mitral prolapse Right renal artery stenosis 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 Anemia Depression Rheumatoid arthritis GERD (gastroesophageal reflux disease) COPD (chronic obstructive pulmonary disease) Deafness in left ear Myocardial infarct Contusion of face Unsteady gait Abrasion of left ring finger Diabetes HTN (hypertension) Home Medications ?Medication ?Instructions ?Recorded ?Last Taken ?Type multivitamin (Daily Multi-Vitamin 1 tab PO DAILY 02/11 Unknown History tablet) aspirin 81 mg chewable tablet 81 mg PO BREAKFAST #1 TA B 02/13/23 Unknown Rx amlodipine 10 mg tablet 10 mg PO QDAY 01/19/24 Unkno wn History atorvastatin 40 mg tablet 40 mg PO QHS 02/15/24 Unknow n History carbamazepine 200 mg tablet 400 mg PO Q12H 02/15/24 Un known History valsartan 160 mg tablet 160 mg PO BID #180 tabs 04/03 Unknown Rx carvedilol 25 mg tablet 25 mg PO BID #180 tabs 06/13 Unknown Rx hydralazine 100 mg tablet 100 mg PO TID #270 TABLETS 0 06/14/24 Unknown Rx warfarin 4 mg tablet 4 mg PO DAILY 10/22/24 Unkno wn History Allergy/AdvReac Type Severity Reaction Status Date / Time mayonnaise Allergy Severe Anaphylaxis Verified 10/22/24 21:15 ibuprofen Allergy Rash Verified 10/22/24 21:15 naproxen (From Naprosyn) Allergy Rash Verified 10/22/24 21:15 codeine AdvReac Vertigo Verified 10/22/24 21:15 Family History Brother Cancer CAD (coronary artery disease) Diabetes Heart disease Mother Diabetes Hypertension Heart disease Father Hypertension Myocardial infarction Heart disease Son Hypertension Surgical History History of stapedectomy Hx of hernia repair Hx of total knee arthroplasty (02/21/20) Hx of CABG (07/09/22) S/P left knee arthroscopy Aortic valve replaced Social History Smoking Status: Light Smoker (<10/day) Tobacco: How many years used: 20 ROS Constitutional Constitutional: Denies chills or fever(s) Eyes Eyes: Denies blurry vision or change in vision ENT HEENT: Denies abnormal hearing or dysphagia Cardiovascular Cardiovascular: Denies chest pain or syncope Respiratory/Chest Respiratory/Chest: Denies cough or shortness of breath at rest Gastrointestinal Gastrointestinal: Denies abdominal pain, diarrhea, melena, nausea or vomiting Genitourinary Genitourinary: Denies dysuria Musculoskeletal Musculoskeletal: Reports joint stiffness and muscle weakness; Denies back pain or extremity pain Integumentary Integumentary: Denies dry skin Neurologic Neurologic: Reports dizziness and focal weakness; Denies abnormal speech or confusion Psychiatric Psychiatric: Denies anxiety Vital Signs Vital Signs Vital Signs: 10/22/24 21:15 10/22/24 21:26 10/22/24 21:46 Temperature 98 F Temperature Source Temporal Pulse Rate 82 74 Respiratory Rate 18 18 Respiratory Effort Normal Non-Labored Respiratory Pattern Normal Blood Pressure 145/100 H 139/94 H Blood Pressure Mean 115 109 Pulse Ox 99 99 Oxygen Delivery Method Room Air Room Air 10/22/24 23:00 Temperature Temperature Source Pulse Rate 86 Respiratory Rate 18 Respiratory Effort Respiratory Pattern Blood Pressure 167/91 H Blood Pressure Mean 116 Pulse Ox 99 Oxygen Delivery Method Room Air Weight Weight: 121 lb 0.54 oz Body Mass Index (BMI) 22.8 Physical Exam Const alert, oriented x3, no apparent distress and well nourished General Appearance: cooperative HEENT normocephalic and head/scalp atraumatic Eyes PERRL and EOMs intact bilaterally Neck no lymphadenopathy Lymph Lymphatic: no lymphadenopathy noted Resp normal respiratory effort, normal air movement and clear to auscultation bilaterally Cardio regular rate, S1 normal heart sound and S2 normal heart sound Rhythm: abnormal rhythm irregularly irregular Heart Sounds: murmur systolic GI normal to inspection, nondistended, normoactive bowel sounds Extremity normal capillary refill and no clubbing, cyanosis or edema Skin General Skin Exam: no breakdown and turgor normal Neuro CN's II-XII intact bilaterally, no focal motor deficits and no sensory deficits noted Neuro Narrative: Slight weakness in left leg as compared to right Motor Exam: strength 5/5 throughout Psych thought process normal, cooperative and affect normal Results Lab / Micro Data 10/22/24 21:45 10/22/24 21:45 Labs: Laboratory Results - last 24 hr 10/22/24 21:45: WBC 5.7, RBC 4.20, Hgb 13.5, Hct 39.7, MCV 94.5, MCH 32.1 H, MCHC 34.0, RDW Std Deviation 43.9, RDW Coeff of Geena 12.7, Plt Count 177, MPV 9.9, Immature Gran % (Auto) 0.500, Neut % (Auto) 60.2, Lymph % (Auto) 28.7, Fannin% (Auto) 9.3, Eos % (Auto) 0.3, Baso % (Auto) 1.0, Absolute Neuts(auto) 3.4, Absolute Lymphs (auto) 1.64, Nucleated RBC % 0, PT 15.4 H, INR 1.2, Sodium 138, Potassium 4.2, Chloride 104, Carbon Dioxide 23.9, Anion Gap 10, BUN 11, Creatinine 0.57 L, Estim Creat Clear Calc 45.85 L, Est GFR (MDRD) Non-Af 95, BUN/Creatinine Ratio 19.4, Glucose 131 H, Calcium 9.1 Rhythm Strip Rhythm Strip: A-fib Rate: 85 Ectopy: None Imaging Radiology Impression Brain CT 10/22/24 21:50 IMPRESSION: 1. Acute infarct involving the anterior right temporal lobe. 2. Advanced chronic small-vessel ischemic changes with numerous scattered foci of old lacunar infarcts in the bilateral cerebral and cerebellar hemispheres. 3. No acute hemorrhage, extra-axial collection, or mass-effect. Reading Location: [facility] Knee X-Ray 10/22/24 21:50 IMPRESSION: Intact left knee arthroplasty. Reading Location: [facility] Assessment & Plan Assessment/Plan (1) Subtherapeutic anticoagulation: (2) Chronic pain of left knee: (3) Left leg weakness: (4) Acute ischemic stroke: (5) Brain TIA: (6) Hx of CABG: (7) History of transcatheter aortic valve replacement (TAVR): (8) Hyperlipidemia: (9) Atrial fibrillation: (10) Depression: (11) GERD (gastroesophageal reflux disease): (12) COPD (chronic obstructive pulmonary disease): PLAN: Plan 1 acute infarct right anterior lobe by CT scan?[facility], initiate neurologic evaluations every 4 hours and order MRI/MRA head and neck in the a.m. consult teleneurology. Patient is anticoagulated on warfarin at this time and will continue to monitor INR as she was subtherapeutic and therefore will need Lovenox until she is therapeutic again. Will follow stroke protocol for management of hypertension 2. Left leg weakness?chronic status post left knee arthroplasty will order PT consult to evaluate and treat for strength 3. Hyperlipidemia?monitor fasting lipid panel continue statin medication 4. Atrial fibrillation?anticoagulation and rate control 5. Depression?mood stable continue routine home medications 6 smoking?cessation strongly encouraged 7. COPD?continue inhaler medications 8. DVT prophylaxis?patient is on anticoagulation 9. CODE STATUS full code verified Charges/Coding Visit Charges Inpatient E&M: 72697 Init Hosp L2 10/23/24 0015 Cosigner Signature (if applicable): CC: Dr. Savage Gilliam MD; Dr. Forrest Bonilla MD~ Signed [facility]09-16-2025 [facility]09-15-2025 Discharge summary [facility] Medical Records Department [address] [place] [address] Emergency Department Summary 10/22/24 MR#: [id number] Acct: [id number] Name: MARK MARTIN Rep #:[id number] : 1950 74 From: Ron Sesay MD PCP: Dr. Savage Gilliam MD Status:REG ER Location: ED HPI History of Present Illness Chief Complaint: Weakness Informant: patient Narrative Narrative: 74-year-old female states she is here to have her left lower extremity weakness evaluated. She states it has been like this for several months, and she feels that the issue is in her left knee which gave her some issues walking at [facility] where she was with her son, and she states that her son wanted her to come and be evaluated. She states today is no different than any other day with regards to the symptoms. She states her left knee is painful and stiff, and she feels like her weakness is related to that. She denies weakness in her arm or her face or trouble speaking or any other neurologic symptoms. She has not fallen or injured anything recently. She is due to follow-up with Dr. Rossi for her knee. She states for the last couple months she has also felt like it is coldfrom her knee down to her foot. She denies claudication symptoms or color changes. [facility] Medical History (Updated 10/22/24 @ 23:[address] 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 Atrial fibrillation Rheumatic fever Mitral prolapse Right renal artery stenosis 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 Anemia Depression Rheumatoid arthritis GERD (gastroesophageal reflux disease) COPD (chronic obstructive pulmonary disease) Deafness in left ear Myocardial infarct Contusion of face Unsteady gait Abrasion of left ring finger Diabetes HTN (hypertension) Home Medications ?Medication ?Instructions ?Recorded ?Last Taken ?Type multivitamin (Daily Multi-Vitamin 1 tab PO DAILY 02/11 Unknown History tablet) aspirin 81 mg chewable tablet 81 mg PO BREAKFAST #1 TA B 02/13/23 Unknown Rx amlodipine 10 mg tablet 10 mg PO QDAY 01/19/24 Unkno wn History atorvastatin 40 mg tablet 40 mg PO QHS 02/15/24 Unknow n History carbamazepine 200 mg tablet 400 mg PO Q12H 02/15/24 Un known History valsartan 160 mg tablet 160 mg PO BID #180 tabs 04/03 Unknown Rx carvedilol 25 mg tablet 25 mg PO BID #180 tabs 06/13 Unknown Rx hydralazine 100 mg tablet 100 mg PO TID #270 TABLETS 0 06/14/24 Unknown Rx warfarin 4 mg tablet 4 mg PO DAILY 10/22/24 Unkno wn History Allergy/AdvReac Type Severity Reaction Status Date / Time [facility] Allergy Severe Anaphylaxis Verified 10/22/24 21:15 ibuprofen Allergy Rash Verified 10/22/24 21:15 naproxen (From Naprosyn) Allergy Rash Verified 10/22/24 21:15 codeine AdvReac Vertigo Verified 10/22/24 21:15 Family History Brother Cancer CAD (coronary artery disease) Diabetes Heart disease Mother Diabetes Hypertension Heart disease Father Hypertension Myocardial infarction Heart disease Son Hypertension Surgical History History of stapedectomy Hx of hernia repair Hx of total knee arthroplasty (02/21/20) Hx of CABG (07/09/22) S/P left knee arthroscopy Aortic valve replaced Social History Smoking Status: Light Smoker (<10/day) Tobacco: How many years used: 20 ROS ROS ED Constitutional Constitutional ED: Denies chills, fever(s) or weakness Eyes Eyes: Denies change in vision or diplopia ENT ENT ED: Denies rhinorrhea or sore throat Cardiovascular Cardiovascular: Denies chest pain, palpitations or racing heartbeat Respiratory/Chest Respiratory/Chest: Denies cough or dyspnea Gastrointestinal Gastrointestinal: Denies abdominal pain, diarrhea, nausea or vomiting Genitourinary Genitourinary ED: Denies dysuria or hematuria Musculoskeletal Musculoskeletal: Reports as per HPI, extremity pain and joint stiffness; Denies back pain or neck pain Integumentary Denies abscess or rash Neurologic Neurologic: Reports weakness; Denies headache(s) or paresthesias Psychiatric Psychiatric: Denies anxiety or suicidal thoughts EXAM Physical Exam Const Vital Signs: 10/22/24 21:15 10/22/24 21:26 10/22/24 21:46 Temperature 98 F Temperature Source Temporal Pulse Rate 82 74 Respiratory Rate 18 18 Respiratory Effort Normal Non-Labored Respiratory Pattern Normal Blood Pressure 145/100 H 139/94 H Blood Pressure Mean 115 109 Pulse Ox 99 99 Oxygen Delivery Method Room Air Room Air 10/22/24 23:00 Temperature Temperature Source Pulse Rate 86 Respiratory Rate 18 Respiratory Effort Respiratory Pattern Blood Pressure 167/91 H Blood Pressure Mean 116 Pulse Ox 99 Oxygen Delivery Method Room Air Positive well nourished and well developed General Appearance ED: well developed and NAD HEENT Reports moist mucous membranes normocephalic and atraumatic Eyes PERRL and EOMs intact bilaterally Neck full ROM and supple Resp normal respiratory effort and clear to auscultation bilaterally Cardio regular rate, regular rhythm and no murmurs Peripheral Pulses: dorsalis pedis pulses present bilateral 2+ GI non-tender and non-distended Auscultation: normoactive bowel sounds Palpation: soft Back/Spine no CVA tenderness General Back: other FROM Extremity normal to inspection Extremity Narrative: Limited range of motion of the left knee due to pain and stiffness according to the patient. No erythema, warmth, effusion. Well-healed anterior TKA surgical incision. General Extremety ED: Negative for edema, pulses abnormal or tenderness General Extremity: Negative for edema or pulses abnormal Neuro oriented x3, CN's II-XII intact bilaterally and no sensory deficits noted Neuro Narrative: Little bit of drift due to weakness in her left lower extremity proximally even with knee in extension, not limited by pain, as well as mild sensory asymmetry between the knee and the ankle. No otherdeficits. Normal speech no aphasia ordysarthria, no dysmetria Sensorium / Orientation: awake and alert Motor Exam: strength abnormal flexion (left thigh 4+) Psych mental status grossly normal Skin no rashes or lesions noted and no wounds NIHSS NIHSS Initial: 1a Level of Consciousness: 0 1b LOC Questions (Score 2 if aphasic/stupor): 0 1c LOC Commands (Only score 1st attempt): 0 2 Best Gaze (If aphasic, use reflexive mvmts.): 0 3 Visual: 0 4 Facial Palsy: 0 5 Motor Arm Right (UN = amputation/fusion): 0 5 Motor Arm Left: 0 6 Motor Leg Right: 0 6 Motor Leg Left: 1 7 Limb ataxia (Only + if out of proportion): 0 8 Sensory (Aphasia/stupor=0 or 1, coma=2): 1 9 Best Language: 0 10 Dysarthria (mute, coma=2, intubated=UN): 0 11 Extinction and Inattention (only scored if +): 0 Total Score: 2 MDM MDM MDM Narrative Medical decision making narrative: My suspicion is that this patient has a peripheral neuropathy. When asked her about history of stroke, she states she did have a stroke 25 years ago that affected her left side and made it weak. However she states her left lower extremity came up to normal before getting weak several months ago. I advised her that I could do a CT and some other tests here to evaluate for a stroke recently. She has a history of A-fib and she is anticoagulated for that, EKG shows that she is indeed in A-fib rightnow it is rate controlled. She is on warfarin; she does not know why she is not on a NOAC. She states her INR was recently tested and was good, but she can't remember what the level was. I sentanother. Plan CT was performed since she does not have symptoms that are acute, I reviewed the images as well as the result which I agree with. It is consistent with an acute ischemic stroke in the right temporal lobe. Unclear if this couldbe causing her left lower extremity weakness which is the only neurologic abnormality I see on exam. In comparison with the scan she had in January of last year, this is new. That was the most recent CT that she has had here. Sheconfirms when I discussed with her again that she has been having this left leg weakness and partial sensory loss from the knee down for the past 2 or 3 months. She states it was around the time that she had the knee surgery. She does notknow exactly. My concern is that the infarct is not necessarily in an area that would explain her left lower extremity weakness. I discussed with [facility] stroke neurology. Fromwhat the neurologist told me, it sounded like he advised carotid testing possibly an MRI, but if she truly has had symptoms for 3 months obviously that does not need to be done emergently. Her INR came back subtherapeutic at 1.2. Almost 2 hours into the patient's length of stay, after being in and out of the room multiple times, I was able to speak with the patient's son for the first time. It was at this point that he statedthe reason that she was brought here which was information not available before I spoke with him, was that when they were at the [employer] prior to coming, the patient was acting unusual and somewhat disoriented, and then she continued to look and lean to the left as if she was unable to recognize her right side, and the right side of her face looked droopy/weak. At that point they were on theway out past the embroidery specialist who told him that he needed to get her to the hospital immediately. He agrees that all of that is resolved right now. Given all of that and the fact she is subtherapeutic on her INR, I think admitting her for further testing and monitoring is indicated. She is given a dose of Lovenox. Discussed with hospitalist. History & Record Review Additional record(s) reviewed:: Prior outpatient record (Cardiology visit 02/15/2024 confirming bioprosthetic aortic valve replacement) Lab Data Attestation: I reviewed the patient's lab results. Labs: Laboratory Results - last 24 hr 10/22/24 21:45 WBC 5.7 RBC 4.20 Hgb 13.5 Hct 39.7 MCV 94.5 MCH 32.1 H MCHC 34.0 RDW Std Deviation 43.9 RDW Coeff of Geena 12.7 Plt Count 177 MPV 9.9 Immature Gran % (Auto) 0.500 Neut % (Auto) 60.2 Lymph % (Auto) 28.7 Fannin % (Auto) 9.3 Eos % (Auto) 0.3 Baso % (Auto) 1.0 Absolute Neuts (auto) 3.4 Absolute Lymphs (auto) 1.64 Nucleated RBC % 0 PT 15.4 H INR 1.2 Sodium 138 Potassium 4.2 Chloride 104 Carbon Dioxide 23.9 Anion Gap 10 BUN 11 Creatinine 0.57 L Estim Creat Clear Calc 45.85 L Est GFR (MDRD) Non-Af 95 BUN/Creatinine Ratio 19.4 Glucose 131 H Calcium 9.1 Radiography Diagnostic Testing: Clinical Impression(s) from Imaging Studies Brain CT 10/22/24 21:50 IMPRESSION: 1. Acute infarct involving the anterior right temporal lobe. 2. Advanced chronic small-vessel ischemic changes with numerous scattered foci of old lacunar infarcts in the bilateral cerebral and cerebellar hemispheres. 3. No acute hemorrhage, extra-axial collection, or mass-effect. Reading Location: [facility] Knee X-Ray 10/22/24 21:50 IMPRESSION: Intact left knee arthroplasty. Reading Location: [facility] 4 view x-ray series of the left knee on my interpretation shows intact hardware and is otherwise unremarkable. Rhythm Strip Rhythm Strip: A-fib Rate: 85 Ectopy: None EKG Initial EKG: Attestation: I personally reviewed and interpreted this EKG as follows: Interpretation: No Acute Injury Pattern and Atrial Fibrillation Management Discussion w/another healthcare provider: Hospitalist and Director Of Sales (Stroke neurology) Discharge Plan Dx/Rx/DC Orders Clinical Impression: Brain TIA, Acute ischemic stroke, Left leg weakness, Chronic pain of left knee,Subtherapeutic anticoagulation, Atrial fibrillation, History of transcatheter aortic valve replacement (TAVR) Disposition Disposition: [facility] Stroke Documentation Questions Stroke Team Activated: No (due to timing) Was Patient considered for Endovascular Intervention?: No-CTA not indicated IV Thrombolytic Administered: No (due to timing) What to do if you have Problems For any increased pain, shortness of breath, bleeding, nausea or vomiting, chestpain, or any unexpected problems, contact your Primary Care Provider. Call [facility] ([phone]) or report tothe closest Emergency Room. Call 911 if necessary. 10/22/24 0859 Cosigner Signature (if applicable): CC: Dr. Savage Gilliam MD ~ Signed [facility]09-15-2025 Radiology Diagnostic study note [facility] [address] [place] [address] Knee 4 or More Views MR#: [id number] Acct: [id number] Name: MARK MARTIN Rep #: [id number] : 1950 F 74 From: Ishan Gongora MD PCP: Dr. Savage Gilliam MD Status: REG ER Study:Knee 4 or More Views Date of Exam: 10/22/24 Exam# [id number] Ordering Dr: Michelle Sesay MD PROCEDURE: KNEE 4 OR MORE VIEWS 10/22/2024 REASON FOR EXAM: PAIN, STIFFNESS TECHNIQUE: Procedure Code: RADKN Modality: DX Procedure: KNEE 4 OR MORE VIEWS Laterality: FINDINGS: Left knee arthroplasty. No knee joint effusion. No evidence of acute complication. RAD/Knee 4 or More Views IMPRESSION: Intact left knee arthroplasty. Reading Location: [facility] CC: Dr. Ron Sesay MD; Dr. Savage Gilliam MD ~ Security Director: Signed [facility]09-15-2025 Radiology Diagnostic study note [facility] [address] [place], [place] [id number] Brain/Head without Contrast MR#: [id number] Acct: [id number] Name: MARK MARTIN Rep #: [id number] : 1950 F 74 From: Vladimir Vu MD PCP: Dr. Savage Gilliam MD Status: REG ER Study:Brain/Head without Contrast Date of Exa m: 10/22/24 Exam# [id number] Ordering Dr: Michelle Sesay MD PROCEDURE: CT BRAIN/HEAD WITHOUT CONTRAST 10/22/2024 REASON FOR EXAM: LLE WEAKNESS TECHNIQUE: Procedure Code: CTBR Modality: CT Procedure: BRAIN/HEAD WITHOUT CONTRAST Coronal and Sagittal reconstruction series were provided. One or more dose reduction techniques were used (e.g., Automated exposure control, adjustment of the mA and/or kV according to patient size, use of iterative reconstruction technique. RADIATION DOSE SUMMARY: CTDlvol: 44.99 mGy DLP: 779.24 mGycm COMPARISON: 01/17/2024 FINDINGS: Parenchymal hypoattenuation in the anterior right temporal lobe consistent with acute infarct. Advanced chronic small-vessel ischemic-gliotic changes elsewhere throughout the supratentorial white matter and bilateral cerebellar hemispheres, with numerous scattered chronic lacunar infarcts. No acute intracranial hemorrhage, extra-axial collection, or mass-effect. Moderate generalized brain parenchymal volume loss. Atherosclerotic vascular calcifications. Absent bad river band ocular lenses. Intact skull base and calvarium. Well-aerated imaged paranasal sinuses and mastoid air cells. CT/Brain/Head without Contrast IMPRESSION: 1. Acute infarct involving the anterior right temporal lobe. 2. Advanced chronic small-vessel ischemic changes with numerous scattered foci of old lacunar infarcts in the bilateral cerebral and cerebellar hemispheres. 3. No acute hemorrhage, extra-axial collection, or mass-effect. Reading Location: [facility] CC: Dr. Ron Sesay MD; Dr. Savage Gilliam MD ~ Security Director: Signed [facility]09-15-2025 Discharge summary Author Ron Sesay [facility] Note Date/Time October 22, 2024 11:54pm [facility] Medical Records Department [address] [place] [address] Emergency Department Summary 10/22/24 MR#: [id number] Acct: [id number] Name: MARK MARTIN Rep #:[id number] : 1950 74 From: Ron Sesay MD PCP: Dr. Savage Gilliam MD Status:REG ER Location: ED HPI History of Present Illness Chief Complaint: Weakness Informant: patient Narrative Narrative: 74-year-old female states she is here to have her left lower extremity weakness evaluated. She states it has been like this for several months, and she feels that the issue is in her left knee which gave her some issues walking at [facility] where she was with her son, and she states that her son wanted her to come and be evaluated. She states today is no different than any other day with regards to the symptoms. She states her left knee is painful and stiff, and she feels like her weakness is related to that. She denies weakness in her arm or her face or trouble speaking or any other neurologic symptoms. She has not fallen or injured anything recently. She is due to follow-up with Dr. Rossi for her knee. She states for the last couple months she has also felt like it is cold from her knee down to her foot. She denies claudication symptoms or color changes. [facility] Medical History (Updated 10/22/24 @ 23:[address] 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 Atrial fibrillation Rheumatic fever Mitral prolapse Right renal artery stenosis 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 Anemia Depression Rheumatoid arthritis GERD (gastroesophageal reflux disease) COPD (chronic obstructive pulmonary disease) Deafness in left ear Myocardial infarct Contusion of face Unsteady gait Abrasion of left ring finger Diabetes HTN (hypertension) Home Medications ?Medication ?Instructions ?Recorded ?Last Taken ?Type multivitamin (Daily Multi-Vitamin 1 tab PO DAILY 02/11 Unknown History tablet) aspirin 81 mg chewable tablet 81 mg PO BREAKFAST #1 TA B 02/13/23 Unknown Rx amlodipine 10 mg tablet 10 mg PO QDAY 01/19/24 Unkno wn History atorvastatin 40 mg tablet 40 mg PO QHS 02/15/24 Unknow n History carbamazepine 200 mg tablet 400 mg PO Q12H 02/15/24 Un known History valsartan 160 mg tablet 160 mg PO BID #180 tabs 04/03 Unknown Rx carvedilol 25 mg tablet 25 mg PO BID #180 tabs 06/13 Unknown Rx hydralazine 100 mg tablet 100 mg PO TID #270 TABLETS 0 06/14/24 Unknown Rx warfarin 4 mg tablet 4 mg PO DAILY 10/22/24 Unkno wn History Allergy/AdvReac Type Severity Reaction Status Date / Time mayonnaise Allergy Severe Anaphylaxis Verified 10/22/24 21:15 ibuprofen Allergy Rash Verified 10/22/24 21:15 naproxen (From Naprosyn) Allergy Rash Verified 10/22/24 21:15 codeine AdvReac Vertigo Verified 10/22/24 21:15 Family History Brother Cancer CAD (coronary artery disease) Diabetes Heart disease Mother Diabetes Hypertension Heart disease Father Hypertension Myocardial infarction Heart disease Son Hypertension Surgical History History of stapedectomy Hx of hernia repair Hx of total knee arthroplasty (02/21/20) Hx of CABG (07/09/22) S/P left knee arthroscopy Aortic valve replaced Social History Smoking Status: Light Smoker (<10/day) Tobacco: How many years used: 20 ROS ROS ED Constitutional Constitutional ED: Denies chills, fever(s) or weakness Eyes Eyes: Denies change in vision or diplopia ENT ENT ED: Denies rhinorrhea or sore throat Cardiovascular Cardiovascular: Denies chest pain, palpitations or racing heartbeat Respiratory/Chest Respiratory/Chest: Denies cough or dyspnea Gastrointestinal Gastrointestinal: Denies abdominal pain, diarrhea, nausea or vomiting Genitourinary Genitourinary ED: Denies dysuria or hematuria Musculoskeletal Musculoskeletal: Reports as per HPI, extremity pain and joint stiffness; Denies back pain or neck pain Integumentary Denies abscess or rash Neurologic Neurologic: Reports weakness; Denies headache(s) or paresthesias Psychiatric Psychiatric: Denies anxiety or suicidal thoughts EXAM Physical Exam Const Vital Signs: 10/22/24 21:15 10/22/24 21:26 10/22/24 21:46 Temperature 98 F Temperature Source Temporal Pulse Rate 82 74 Respiratory Rate 18 18 Respiratory Effort Normal Non-Labored Respiratory Pattern Normal Blood Pressure 145/100 H 139/94 H Blood Pressure Mean 115 109 Pulse Ox 99 99 Oxygen Delivery Method Room Air Room Air 10/22/24 23:00 Temperature Temperature Source Pulse Rate 86 Respiratory Rate 18 Respiratory Effort Respiratory Pattern Blood Pressure 167/91 H Blood Pressure Mean 116 Pulse Ox 99 Oxygen Delivery Method Room Air Positive well nourished and well developed General Appearance ED: well developed and NAD HEENT Reports moist mucous membranes normocephalic and atraumatic Eyes PERRL and EOMs intact bilaterally Neck full ROM and supple Resp normal respiratory effort and clear to auscultation bilaterally Cardio regular rate, regular rhythm and no murmurs Peripheral Pulses: dorsalis pedis pulses present bilateral 2+ GI non-tender and non-distended Auscultation: normoactive bowel sounds Palpation: soft Back/Spine no CVA tenderness General Back: other FROM Extremity normal to inspection Extremity Narrative: Limited range of motion of the left knee due to pain and stiffness according to the patient. No erythema, warmth, effusion. Well-healed anterior TKA surgical incision. General Extremety ED: Negative for edema, pulses abnormal or tenderness General Extremity: Negative for edema or pulses abnormal Neuro oriented x3, CN's II-XII intact bilaterally and no sensory deficits noted Neuro Narrative: Little bit of drift due to weakness in her left lower extremity proximally even with knee in extension, not limited by pain, as well as mild sensory asymmetry between the knee and the ankle. No other deficits. Normal speech no aphasia ordysarthria, no dysmetria Sensorium / Orientation: awake and alert Motor Exam: strength abnormal flexion (left thigh 4+) Psych mental status grossly normal Skin no rashes or lesions noted and no wounds NIHSS NIHSS Initial: 1a Level of Consciousness: 0 1b LOC Questions (Score 2 if aphasic/stupor): 0 1c LOC Commands (Only score 1st attempt): 0 2 Best Gaze (If aphasic, use reflexive mvmts.): 0 3 Visual: 0 4 Facial Palsy: 0 5 Motor Arm Right (UN = amputation/fusion): 0 5 Motor Arm Left: 0 6 Motor Leg Right: 0 6 Motor Leg Left: 1 7 Limb ataxia (Only + if out of proportion): 0 8 Sensory (Aphasia/stupor=0 or 1, coma=2): 1 9 Best Language: 0 10 Dysarthria (mute, coma=2, intubated=UN): 0 11 Extinction and Inattention (only scored if +): 0 Total Score: 2 MDM MDM MDM Narrative Medical decision making narrative: My suspicion is that this patient has a peripheral neuropathy. When asked her about history of stroke, she states she did have a stroke 25 years ago that affected her left side and made it weak. However she states her left lower extremity came up to normal before getting weak several months ago. I advised her that I could do a CT and some other tests here to evaluate for a stroke recently. She has a history of A- fib and she is anticoagulated for that, EKG shows that she is indeed in A-fib right now it is rate controlled. She is on warfarin; she does not know why she is not on a NOAC. She states her INR was recently tested and was good, but she can't remember what the level was. I sentanother. Plan CT was performed since she does not have symptoms that are acute, I reviewed the images as well as the result which I agree with. It is consistent with an acute ischemic stroke in the right temporal lobe. Unclear if this couldbe causing her left lower extremity weakness which is the only neurologic abnormality I see on exam. In comparison with the scan she had in January of last year, this is new. That was the most recent CT that she has had here. Sheconfirms when I discussed with her again that she has been having this left leg weakness and partial sensory loss from the knee down for the past 2 or 3 months. She states it was around the time that she had the knee surgery. She does not know exactly. My concern is that the infarct is not necessarily in an area that would explain her left lower extremity weakness. I discussed with [facility] stroke neurology. Fromwhat the neurologist told me, it sounded like he advised carotid testing possibly an MRI, but if she truly has had symptoms for 3 months obviously that does not need to be done emergently. Her INR came back subtherapeutic at 1.2. Almost 2 hours into the patient's length of stay, after being in and out of the room multiple times, I was able to speak with the patient's son for the first time. It was at this point that he stated the reason that she was brought here which was information not available before I spoke with him, was that when they were at the [employer] store prior to coming, the patient was acting unusual and somewhat disoriented, and then she continued to look and lean to the left as if she was unable to recognize her right side, and the right side of her face looked droopy/weak. At that point they were on the way out past the embroidery specialist who told him that he needed to get her to the hospital immediately. He agrees that all of that is resolved right now. Given all of that and the fact she is subtherapeutic on her INR, I think admitting her for further testing and monitoring is indicated. She is given a dose of Lovenox. Discussed with hospitalist. History & Record Review Additional record(s) reviewed:: Prior outpatient record (Cardiology visit 02/15/2024 confirming bioprosthetic aortic valve replacement) Lab Data Attestation: I reviewed the patient's lab results. Labs: Laboratory Results - last 24 hr 10/22/24 21:45 WBC 5.7 RBC 4.20 Hgb 13.5 Hct 39.7 MCV 94.5 MCH 32.1 H MCHC 34.0 RDW Std Deviation 43.9 RDW Coeff of Geena 12.7 Plt Count 177 MPV 9.9 Immature Gran % (Auto) 0.500 Neut % (Auto) 60.2 Lymph % (Auto) 28.7 Fannin % (Auto) 9.3 Eos % (Auto) 0.3 Baso % (Auto) 1.0 Absolute Neuts (auto) 3.4 Absolute Lymphs (auto) 1.64 Nucleated RBC % 0 PT 15.4 H INR 1.2 Sodium 138 Potassium 4.2 Chloride 104 Carbon Dioxide 23.9 Anion Gap 10 BUN 11 Creatinine 0.57 L Estim Creat Clear Calc 45.85 L Est GFR (MDRD) Non-Af 95 BUN/Creatinine Ratio 19.4 Glucose 131 H Calcium 9.1 Radiography Diagnostic Testing: Clinical Impression(s) from Imaging Studies Brain CT 10/22/24 21:50 IMPRESSION: 1. Acute infarct involving the anterior right temporal lobe. 2. Advanced chronic small-vessel ischemic changes with numerous scattered foci of old lacunar infarcts in the bilateral cerebral and cerebellar hemispheres. 3. No acute hemorrhage, extra-axial collection, or mass-effect. Reading Location: [facility] Knee X-Ray 10/22/24 21:50 IMPRESSION: Intact left knee arthroplasty. Reading Location: [id number] 4 view x-ray series of the left knee on my interpretation shows intact hardware and is otherwise unremarkable. Rhythm Strip Rhythm Strip: A-fib Rate: 85 Ectopy: None EKG Initial EKG: Attestation: I personally reviewed and interpreted this EKG as follows: Interpretation: No Acute Injury Pattern and Atrial Fibrillation Management Discussion w/another healthcare provider: Hospitalist and Director Of Sales (Stroke neurology) Discharge Plan Dx/Rx/DC Orders Clinical Impression: Brain TIA, Acute ischemic stroke, Left leg weakness, Chronic pain of left knee,Subtherapeutic anticoagulation, Atrial fibrillation, History of transcatheter aortic valve replacement (TAVR) Disposition Disposition: Acute Care [facility] Stroke Documentation Questions Stroke Team Activated: No (due to timing) Was Patient considered for Endovascular Intervention?: No-CTA not indicated IV Thrombolytic Administered: No (due to timing) What to do if you have Problems For any increased pain, shortness of breath, bleeding, nausea or vomiting, chestpain, or any unexpected problems, contact your Primary Care Provider. Call [facility] ([phone]) or report to the closest Emergency Room. Call 911 if necessary. 10/22/24 1382 <Electronically signed by Ron Sesay MD> Cosigner Signature (if applicable): CC: Dr. Savage Gilliam MD ~ Signed [facility] Work Phone: 1(186) 450-251802-28-2025 Radiology Diagnostic study note [facility] [address] [place] [id number] Lung Screening MR#: [id number] Acct: [id number] Name: MARK MARTIN Rep #: [id number] : 1950 F 74 From: Myron Peterson MD PCP: Dr. Savage Gilliam MD Status: REG CL I Study:Low Dose CT Lung Screening Date of Exam : 04/05/24 Exam# [id number] Ordering Dr: Rob Lieberman NP FINANCIAL ANALYSIS CONSULTANT-C PROCEDURE: LOW DOSE CT LUNG SCREENING REASON [...] Vasculature:Normal heart size. No pericardial effusion.Atheroscleroticplaque formation ofthe aortic arch and descending thoracic aorta. Coronary [...] ON IMAGING FEATURES OR INDOLENT BEHAVIOR). RECOMMEND 12- MONTH SCREENING LDCT.. 2. SMOKING CESSATION COUNSELING IS [...] features or indolent behavior). (more content not included)...[facility] Diagnosis Onset Date Resolution Status Admit Date Generalized weakness resolved Dece mber 2023 11:18am Atrial fibrillation acute ry 2024 2:58pm History of transcatheter aortic valve replacement (TAVR) July 09, 2022 acute February 14 2:58pm Hx of CABG July 09, 2022 acute February 2:58pm Hyperlipidemia acute February 2:58pm Renal artery stenosis acute Feb ua2024 2:58pm HTN (hypertension) chronic r y 2024 2:58pm [facility] Work Phone: 1(201) 615-316503-07-2024 Hospital Discharge instructions Patient Education 04/14/2023 13:17:30 [...] until you are awake and alert. Take kcab-fte-rnryfng and prescription medicines only as told by [...] 11/14/2013 Document Revised: 01/06/2018 Document Reviewed: 05/15/2016 Elsevier Patient Education 2020 [employer] 04/14/2023 13:12:21 3- Cardioversion (11/2017) (CUSTOM) [...] 01/24/2006 Document Revised: 01/10/2013 Document Reviewed: 01/25/2014 [facility] Patient Information 2015 [facility]. This information is not intended to replace advicegiven to you by your health care provider. Make sure you discuss any questions you have with your health care provider. Follow Up Care 03/30/2023 12:26:54 With:MIKE KEARNEY MD Address: [address] [place] [address] [address] [place] [address]- [phone] When:05/27/2023 10:30:00 [facility] 03-07-2024 Summary of episode note Discharge Instructions Thank you for allowing [facility] to assist you with your healthcare needs. The following is importantdischarge information regarding your hospital visit. Your Care Team CHELITA GAMEZ What to do next Scheduled Follow-Up Appointments Appointment Type When Where Contact InformationACC POC Established Patient 04/21/2023 10:00 AM EDT [facility] [phone] [facility] Hospital Follow Up 05/27/2023 10:30 AM EDT [facility] Follow Up Appointments Follow Up with MIKE KEARNEY MD When 05/27/2023 10:30 AM EDT Where: [address] [place] [address] [address] [facility] [place] [address]- [phone] Allergies Mayonnaise (Facial swelling, Difficulty breathing, Anaphylaxis) [...] Two (2) times a day Pickup at [facility] Pharmacy Information [facility]: [address] [place], [place] [phone] What How Much When Comments Stop Taking [...] until you are awake and alert. Take lhvn-fie-wdpxomb and prescription medicines only as told by [...] 11/14/2013 Document Revised: 01/06/2018 Document Reviewed: 05/15/2016 [employer] Patient Education 2020 [employer]. CARDIOVERSION Discharge instructions ACTIVITY/SAFETY Please refrain from [...] Document Reviewed: 01/25/2014 ExitCare Patient Information 2015 [employer]. This information is not intended to replace advicegiven to you by your health care provider. Make sure you discuss any questions you have with your health care provider. Additional Information VACCINATE! IT SAVES LIVES! Members of the community who have not yet received the COVID-19 vaccine and would like to receive it can visit one of [facility] vaccine clinics. There are many vaccine clinic locations within the [facility]. For locations and available times, please visit [email or web address].[place].gov/. It is important to note that some COVID mobile vaccine clinics are held outdoors and may be canceled in rainy or stormy conditions. To learn more about pediatric vaccinations (ages 5-11), we invite you to visit the [facility] webpage. https://www.[email or web address].org/pages/8259-Uikhi-Xpakolfcxsa-Dwttrfztfr-Ptrqd-Llb stions.htmlTo learn more about the COVID-19 vaccine, we invite you to visit the CDC website for a list of frequently asked questions.https://www.cdc.gov/coronavirus/2019-ncov/vaccines/faq.html [facility] Patient Portal Access Instructions: Stay connected with your healthcare team and access your personal medical information anytime with the [facility] Patient Portal. Please follow the directions below to create your [facility] account: 1.Access the email account you provided upon registration to the hospital/physician office.2.Look for an invitation email from [facility].3.Open the email and access the invitation link: AcceptInvitation to [facility].4.Fill in the required peacock to create your account. To access your account, visit [employer]. Click the blue button labeled Access Patient Portal and then log in with the username and password that you created in the steps above. You will be able to view your test results, lab results, a summary of your visits, upcoming appointments and more. There is also a convenient messaging option where you can send secure messages to your p [employer]. In addition, you will have the ability to download any documents or summaries to your computer and/or send the information securely to a physician. Remember that your healthcare information is confidential, so carefully consider who you will allowto register on the [facility] Patient Portal for access to your information. You can also access the [facility] Patient Portal on the [facility] esthela. Simply click on Patient Portal and then log into your account. If you would like to receive a full copy of your medical records, please contact the [facility] Medical Records Department by calling [phone], Tuesday through Tuesday between 8 a.m. and [...] Call your local pharmacy or go to http://bit.[employer]/7G4Iq0p to find one close to you.3.Make use of household items: Use cat litter or old coffee grounds to dispose medications if other options arenot available. Mix your drugs with these household products, seal them in an airtight container andthrow it into the garbage. Call [facility]: [phone] to be sure your drugs can be [...] that I should contact my d octor. Patient/Coremaker Experimental Signature: Date/Time: Relationship to Patient: Witness Name/Signature: Date/Time: [facility] Anesthesiology Consult note Patient: MARK MARTIN Age: 73 years Sex: Female : 1950 Associated Diagnoses: None Author: NAINA JERNIGAN MD Postoperative Information Post Operative Info: Post op day: Post Anesthesia Care Unit. Patient location: OR [facility]. Assessment Postanesthesia assessment Vitals: Vital signs from [...] NAINA JERNIGAN MD on 04/14/2023 01:51 PM [id number] Anesthesiology Consult note Patient: MARK MARTIN Age: [...] list: Medical COPD EXACERBATION / SNOMED CT 977871470 / Confirmed NSTEMI (non-ST elevated myocardial infarction) / SNOMED CT 8792487207 / Confirmed Anemia / SNOMED CT 722530746 / Confirmed Postoperative anemia / SNOMED CT 855492420 / Confirmed Warfarin anticoagulation / SNOMED CT 81302105 / Confirmed Aortic valve stenosis / SNOMED CT 622069547 / Confirmed Afib / SNOMED CT 49834579 / Confirmed Postoperative atrial fibrillation / SNOMED CT 29346387 / Confirmed Bradycardia / SNOMED CT 78944170 / Confirmed CVA (cerebrovascular accident) / SNOMED CT 427350627 / Confirmed Coronary artery disease / SNOMED CT 22799085 / Confirmed CAD (coronary artery disease) s/p CABG x3, EF 55-60%, 07/09/2022 / SNOMED CT 52124319 / Confirmed DYSLIPIDEMIA / SNOMED CT 5603372080 / Confirmed SOB (shortness of breath) / SNOMED CT 671188770 / Confirmed COPD with chronic bronchitis / SNOMED CT 952633400 / Confirmed Epilepsy / SNOMED CT 189675971 / Confirmed Elevated glucose / SNOMED CT 1510750920 / Confirmed PERSONAL HISTORY OF OTHER DISEASES OF THE NERVOUS SYSTEM AND SENSE ORGANS / SNOMED CT 890260784 / Confirmed History of epilepsy / SNOMED CT 673056326 / Confirmed HTN (hypertension) / SNOMED CT 8295739539 / Confirmed Resistant hypertension / SNOMED CT 7835653985 / Confirmed Mitral valve prolapse / SNOMED CT 0715313654 / Confirmed Moderate aortic insufficiency / SNOMED CT 9611547699 / Confirmed Pleural effusion, left / SNOMED CT 62431612 / Confirmed STENOSIS OF ONE OF TWO RENAL ARTERIES / SNOMED CT 752454846 / Confirmed Stenosis of right renal artery / SNOMED CT 500494315 / Confirmed RESISTANT HYPERTENSION / SNOMED CT 504220842448841 / Confirmed Rheumatic heart disease / SNOMED CT 32106772 / Confirmed Encounter for surgical aftercare following surgery of circulatory system / SNOMED CT 595813946 / Confirmed Current tobacco use / SNOMED CT 374601874 / Confirmed Type II diabetes mellitus / SNOMED CT 980894507 / Confirmed Vasovagal near syncope / SNOMED CT 641511740 / Confirmed Resolved: History of stroke / SNOMED CT [id number] Canceled: COPD exacerbation / SNOMED CT 0682517760 Canceled: Benign hypertension / SNOMED CT 60743523 Canceled: Bradycardia / SNOMED CT 19255773 Canceled: BRADYCARDIA / SNOMED CT 85521214 Canceled: Epilepsy / SNOMED CT 104434015 Canceled: Hypercholesterolemia / SNOMED CT 96735110 Canceled: DMII (diabetes mellitus, type 2) / SNOMED CT 608726000 Canceled: Hypertension / ICD-9-CM 401.9, Active Problems [...] History: Active NSTEMI (non-ST elevated myocardial infarction) (8931324814) SOB (shortness of breath) (626300832) Mitral valve prolapse (2489593993) Rheumatic heart disease (17856595) Current tobacco use (135025647) Resolved History of stroke ([id number]): Resolved. Family History: Cancer Brother (Stephen Vilchis, [...] Brother (Stephen Vilchis, ) Procedure history: Echocardiogram ([id number]) on 02/12/2023 at 73 Years. Comments: 02/14/2023 [...] Limited 2D echocardiogram with no Doppler. Echocardiogram ([id number]) on 01/17/2023 at 72 Years. Comments: 02/14/2023 14:54 Tatum Guerrier MA (ABR-OE) The estimated ejection fraction is 65 %. No evidence for diastolic dysfunction. The left atrium is mildly enlarged. Echocardiogram ([id number]) on 09/23/2022 at 72 Years. Comments: 12/10/2022 [...] atrial pressure is 3 mm Hg. Thoracentesis ([id number]) on 07/13/2022 at 72 Years. Comments: 09/10/2022 14:12 Tatum Moon MA (ABR-OE) LEFT FLUID REMOVED: 900 cc FLUID COLOR: Serosanguineous Transesophageal echocardiogram ([id number]) on 07/09/2022 at 72 Years. Comments: 08/12/2022 [...] EPI/NE CABG - Coronary artery bypass graft ([id number]) on 07/09/2022 at 72 Years. Comments: 09/10/2022 [...] Endoscopic vein harvesting, right leg. Transesophageal echocardiogram ([id number]) on 07/09/2022 at 72 Years. Comments: 09/10/2022 [...] on EPI/NE. PFT - Pulmonary function tests (9118808711) on 07/06/2022 at 72 Years. Comments: 09/10/2022 14:18 Tatum Moon MA (ABR-OE) Normal Coronary artery bypass grafts x 3 (746969691) on 07/04/2022 at 72 Years. Comments: 07/15/2022 18:35 Genesis Gar RN with aortic valve replacment Arterial angioplasty ([id number]) on 07/02/2022 at 72 Years. Comments: 09/10/2022 14:21 Tatum Moon MA (ABR-OE) Balloon angioplasty of the right renal artery stent with a 6 mm Akhil. Closure with Mynx Cardiac catheterization ([id number]) on 07/01/2022 at 72 Years. Comments: 08/12/2022 [...] demonstrates multiple vessel coronary artery disease. Echocardiogram (4373546297) on 06/29/2022 at 72 Years. Comments: 08/12/2022 [...] is 3 mm Hg Cardiovascular stress testing (295044555) on 06/29/2022 at 72 Years. Comments: 08/12/2022 14:56 Tatum Moon MA (ABR-OE) Suggestive moderate severity anterior/anterior lateral wall ischemia No evidence myocardial infarction, RAMP artifact calculated ejection fraction 60% with normal wall motion and thickening Imaging of carotid arteries by duplex scan with spectrum analysis ([id number]) on 06/28/2022 at 72 Years. Comments: 09/10/2022 14:24 Tatum Moon MA (ABR-OE) 1. The right vertebral artery is patent with normal antegrade flow. 2. The left vertebral artery is patent with normal antegrade flow. 3. Mild 1-39% stenosis of the right internal carotid artery. 4. Moderate 40-59% stenosis of the left internal carotid artery. Cardiovascular stress testing (409260947) on 06/27/2022 at 72 Years. Comments: 08/12/2022 14:57 Tatum Moon MA (ABR-OE) ECG portion of the Lexiscan nuclear stress test is negative for inducible ischemia with decreased specificity due to LVH at baseline. Echocardiogram ([id number]) on 04/28/2022 at 72 Years. Comments: 08/12/2022 [...] is 3 mm Hg. Total knee arthroplasty (6980519418) on 02/21/2020 at 70 Years. Comments: 02/21/2020 18:19 Suzanne Noriega RN LEFT PFT - Pulmonary function tests (0047880474) on 01/25/2020 at 69 Years. Echocardiogram ([id number]) on 02/15/2017 at 67 Years. Comments: 09/20/2019 [...] pulmonary artery pressure of 24 Holter monitor (868744684) on 01/24/2017 at 66 Years. Comments: 09/20/2019 [...] ectopy, arrhythmia, or ST segment change EKG (450849121) on 01/14/2017 at 66 Years. Comments: 09/20/2019 10:00 Toshia Stallings MA (ABR-OE) Atrial bradycardia HR 42 BPM Cardiovascular stress testing (845826350) on 01/29/2010 at 59 Years. Comments: 09/20/2019 9:58 Toshia Stallings MA (ABR-OE) Cardiovascular Stress Test 01/29/2010 - Technically adequate (%PMHR > 85%) ETT. Peak exercise, ECG with no obvious ECG evidence of OR at the HR achieved. LVEF 66% - [...] of medial meniscus of right knee joint (8913513875) on 02/20/2008 at 58 Years. Arthroscopy of knee- left (976425105) in 1995 at 46 Years. Comments: 07/15/2022 18:33 EDT - Genesis Moyer RN left Hemorrhoidectomy (63102225) in 1984 at 35 Years. Hysterectomy (079030761). History of hernia repair (4505291224). Stapedectomy (281010611). Entire tonsils and adenoids (499038528). Vascular flow (35607982). 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 Assessment and Plan [place] Society [employer] Anesthesiologists (ASA) physical status classification: [...] NAINA JERNIGAN MD on 04/14/2023 06:18 AM [id number] Hospital Discharge instructions Patient Education 04/11/2023 12:06:01 [...] the ears or bruising around the eyes 4728-5031 [employer]. [address] [place] [address]. All rights reserved. This information is not [...] in vomit, stools (black or red color) 9794-1142 [employer]. [address] [place] [address]. All rights reserved. This information is not intended as a substitute for professional medical care. Always follow yourhealthcare professional's instructions. Follow Up Care 04/11/2023 10:53:28 With:CHELITA GAMEZ Address: [address] [place] [address] [place] [phone] Business (1) When:2-4 days Comments:Follow-up as needed.Ice/cold compresses to injured area.Use Tylenol for pain as needed.Limit activity as tolerated.Return to the ED if symptoms worsen. [facility] 03-04-2024 Note Discharge Instructions Thank you for allowing [facility] to assist you with your healthcare needs. [...] the ED if symptoms worsen. [facility] [place] [phone] Business (1) Allergies Mayonnaise (Facial swelling, Difficulty [...] the ears or bruising around the eyes 0532-4279 [employer]. [address] [place] [address]. All rights reserved. This information is not [...] in vomit, stools (black or red color) 9858-2738 [employer]. [address] [place] [address]. All rights reserved. This information is not intended as a substitute for professional medical care. Always follow yourhealthcare professional's instructions. Additional Information VACCINATE! IT SAVES LIVES! Members of the community who have not yet received the COVID-19 vaccine and would like to receive it can visit one of [facility] vaccine clinics. There are many vaccine clinic locations within the [facility]. For locations and available times, please visit www.gettheshot.coronavirus.[place].gov/. It is important to note that some COVID mobile vaccine clinics are held outdoors and may be canceled in rainy or stormy conditions. To learn more about pediatric vaccinations (ages 5-11), we invite you to visit the [facility] webpage. https://www.[facility].org/pages/2954-Vdyhk-Uyvxibqznhc-Glozcijqoo-Bqswn-Orf stions.htmlTo learn more about the COVID-19 vaccine, we invite you to visit the CDC website for a list of frequently asked questions. https://www.cdc.gov/coronavirus/2019-ncov/vaccines/faq.html [facility] Patient Portal Access Instructions: Stay connected with your healthcare team and access your personal medical information anytime with the [facility] Patient Portal. If you would like a full copy of your medical records please contact the [facility] Medical Records Department Tuesday through Tuesday between 8a.m. and 4:30p.m. Please follow the directions below to access the portal: 1.Access the email account you provided upon registration to the [facility].2.Look for an invitation email from [facility].3.Open the email and access the invitation link: Accept Invitation to [facility]4.Fill in the required peacock to create your account. Sign into www.[employer] with your username and password that you [...] you will allow to register on the [facility] Patient Portal for access to your information. You can also access the [facility] Patient Portal on the Liv[employer]. Simply click on Health Records under HealthData and then click on the Needl logo. HOW TO SAFELY DISPOSE OF PRESCRIPTION [...] Call your local pharmacy or go to http://bit.[employer]/2Q4Yw5o to find one close to you.3.Make use of household items: Use cat litter or old coffee grounds to dispose medications if other options arenot available. Mix your drugs with these household products, seal them in an airtight container andthrow it into the garbage. Call [facility]: [phone] to be sure your drugs can be [...] that I should contact my d octor. Patient/Coremaker Experimental Signature: Date/Time: Relationship to Patient: Witness Name/Signature: Date/Time: [facility]03-04-2024 Note ORIGINAL HISTORY: Fall COMPARISON: 27 Jun [...] Sign Date: 04/11/2023 11:38:02 AM Ordering Provider: [facility]12-14-2023 Discharge summary Author Rosalva [facility] January 20, 2023 10:53am Note Date/Time January 20, 2023 10:53am [facility] Medical Records Department [address] [place] [address] Instructions for Home/Discharge Instructions 01/20/23 1053 MR#: [id number] Acct: [id number] Name: MARK MARTIN Georgie Rep #:[id number] : 1950 72 From: Rosalva Ortez MD [...] Order can be placed): Home Health Service 01/20/231052<Electronically signed by Rosalva Ortez MD>Rosalva Ortez MD CC: Dr. Eladio Almanza MD; Dr. Mariann Trent MD; Dr. Axel Javier, DO ~ Signed [facility] Work Phone: 1(242) 850-155512-14-2023 Discharge summary Author Rosalva [facility] January 20, 2023 3:43pm Note Date/Time January 20, 2023 10:53am [facility] Medical Records Department [address] [place] [address] Discharge Summary 01/20/231052 MR#: [id number] Acct: [id number] Name: MARK MARTIN Rep #:[id number] : 1950 72 From: Rosalva Ortez MD PCP: Dr. Mariann Trent MD Status:ADM IN Location: [place] [address] Providers Date of Admission: 01/15/23 Date of [...] Health Service Charges/Coding Visit Charges Inpatient E&M: 46150 Disch Hosp >30min 01/20/23 1543 <Electronically signed by Rosalva Ortez MD> Cosigner Signature (if applicable): CC: Dr. Mariann Trent MD; Dr. Rosalva Ortez MD~ Signed [facility] Work Phone: 1(499) 532-990012-13-2023 Progress note Author [facility] January 19, 2023 4:32pm Note Date/Time January 19, 2023 9:54am [facility] Medical Records Department [address] [place] [address] Progress Note 01/19/23 0953 MR#: [id number] Acct: [id number] Name: MARK MARTIN Rep #:[id number] : 1950 72 From: Rosalva Ortez MD PCP: Dr. Mariann Trent MD Status:ADM IN Location: [place] [address]-1 Subjective Subjective Patient seen and examined. She [...] 350 Lab / Micro Data 01/16/23 04:56 12/10/23 04:56 Physical Exam Const alert, oriented x3 [...] awaiting placement. Charges/Coding Visit Charges Inpatient E&M: 06045 Subs Hosp L2 01/19/23 1632 <Electronically signed by Rosalva Ortez MD> Rosalva Ortez MD Cosigner Signature (if applicable): CC: ~ Signed [facility] Work Phone: 1(463) 691-726812-12-2023 Progress note Author [facility] January 18, 2023 3:55pm Note Date/Time January 18, 2023 11:39am [facility] Medical Records Department [address] [place] [address] Progress Note 01/18/23 1137 MR#: [id number] Acct: [id number] Name: MARK MARTIN Rep #:[id number] : 1950 72 From: Rosalva Ortez MD PCP: Dr. Mariann Trent MD Status:ADM IN Location: [place] [address] Subjective Subjective Patient seen and examined. She [...] Physician: Mariann Trent Performed By: Sharlene Puente, ROSLYN, RVT Physical Exam Const alert, oriented x3 [...] awaiting placement. Charges/Coding Visit Charges Inpatient E&M: 32180 Subs Hosp L2 01/18/23 1410 <Electronically signed by Rosalva Ortez MD> Rosalva Ortez MD Cosigner Signature (if applicable): CC: ~ Signed [facility] Work Phone: 1(561) 326-584512-11-2023 Progress note Author [facility] January 17, 2023 4:47pm Note Date/Time January 17, 2023 12:39pm [facility] Medical Records Department [address] [place] [address] Progress Note 01/17/23 1230 MR#: [id number] Acct: [id number] Name: MARK MARTIN Rep #:[id number] : 1950 72 From: Rosalva Ortez MD PCP: Dr. Mariann Trent MD Status:ADM IN Location: [place] [address]-1 Subjective Subjective Patient seen and examined. SHe [...] Physician: Mariann Trent Performed By: Darrius Hua RVT Physical Exam Const alert, oriented x3 [...] awaiting placement. Charges/Coding Visit Charges Inpatient E&M: 37467 Subs Hosp L2 01/17/23 1647 <Electronically signed by Rosalva Ortez MD> Rosalva Ortez MD Cosigner Signature (if applicable): CC: ~ Signed [facility] Work Phone: 1(866) 721-350412-10-2023 Progress note Author Axel Javier [facility] January 16, 2023 3:59pm Note Date/Time January 16, 2023 3:59pm [facility] Medical Records Department [address] [place] [address] Progress Note - Hospitalist 01/16/23 1552 MR#: [id number] Acct: [id number] Name: MARK MARTIN Rep #:[id number] : 1950 72 From: Axel Javier DO PCP: Dr. Mariann Trent MD Status:ADM IN Location: [address] Reason for Visit Reason for Visit: Diagnoses [...] I have decided however that social work administrator should meet with the patient tomorrow and [...] 75.9 H, Lymph % (Auto) 16.2 L, Fannin % (Auto) 5.4, Eos % (Auto) 1.0, [...] Sl. Cloudy, Urine pH 8.0, Ur Specific [place] 1.015, Urine Protein 15 H, Urine Glucose [...] Std Deviation 44.7 H, RDW Coeff of [place] 13.1, Plt Count 225, MPV 10.1, Immature Gran % (Auto) 0.500, Neut % (Auto) 58.4, Lymph % (Auto) 29.8, Fannin % (Auto) 9.0, Eos % (Auto) 1.1, [...] 21:15 EST Reading Location ID and State: [employer] , Service support , Cervical Spine CT 01/15/23 20:40 IMPRESSION: No acute fracture or subluxation. Electronically Signed: Taj Smith MD at 21:31 EST Reading Location ID and State: [id number] / [employer] , Service support , Facial/Sinus 01/15/23 20:40 IMPRESSION: Normal unenhanced CT of the facial bones. Acute right sphenoid sinusitis. Electronically Signed: Taj Smith MD at 21:20 EST , Hand X-Ray 01/15/23 20:45 IMPRESSION: No [...] continue to work with patient, social work administrator will need to set up home health [...] 35 minutes Charges/Coding Visit Charges Inpatient E&M: 91629 Subs Hosp L2 01/16/23 1559 <Electronically signed by Axel Javier DO> Cosigner Signature (if applicable): CC: ~ Signed [facility] Work Phone: 1(251) 247-541212-10-2023 History and physical note Author Eladio Almanza [facility] January 16, 2023 1:05am Note Date/Time January 15, 2023 1 0:38pm [facility] Medical Records Department [address] [place] [address] H&P Exam - Hospitalist 01/15/232236 MR#: [id number] Acct: [id number] Name: MARK MARTIN Rep #:[id number] : 1950 72 From: Eladio Almanza MD PCP: Dr. Mariann Trent MD Status:ADM IN Location: [facility] HPI - General General Date of Admission: [...] her dizziness had improved remarkably. [facility] Medical History (Updated 01/15/23 @ 23:59 by [...] 75.9 H, Lymph % (Auto) 16.2 L, Fannin % (Auto) 5.4, Eos % (Auto) 1.0, [...] Sl. Cloudy, Urine pH 8.0, Ur Specific [place] 1.015, Urine Protein 15 H, Urine Glucose [...] 21:15 EST Reading Location ID and State: [employer] , Service support , Cervical Spine CT 01/15/23 20:40 IMPRESSION: No acute fracture or subluxation. Electronically Signed: Taj Smith MD at 21:31 EST Reading Location ID and State: [employer] , Service support , Facial/Sinus 01/15/23 20:40 IMPRESSION: Normal unenhanced CT of the facial bones. Acute right sphenoid sinusitis. Electronically Signed: Taj Smith MD at 21:20 EST Reading Location ID and State: [employer] [facility] [employer] , Service support , Hand X-Ray 01/15/23 20:45 IMPRESSION: No acute fracture or dislocation Electronically Signed: Taj Smith MD at 21:34 EST Reading Location ID and State: [employer] , Service support , Assessment & [...] adverse events Charges/Coding Visit Charges Inpatient E&M: 98186 Init Hosp L2 01/16/23 0105 <Electronically signed by Eladio Almanza MD> Cosigner Signature (if applicable): CC: Dr. Eladio Almanza MD; Dr. Mariann Trent MD~ Signed [facility] Work Phone: 1(871) 875-742812-10-2023 Discharge summary Author Johntahon Richardson [facility] January 15, 2023 10:29pm Note Date/Time January 15, 2023 8 :19pm [facility] Medical Records Department [address] [place] [address] Emergency Department Summary 01/15/23 MR#: [id number] Acct: [id number] Name: MARK MARTIN Rep #:[id number] : 1950 72 From: Johnathon Sy PCP: [...] she was able to get herself up. [facility] Medical History Afib Diabetes HTN (hypertension) Home [...] clinician: N/A This note was generated with XunLight dictation software. It may contain incorrectwords, spelling, [...] 75.9 H Lymph % (Auto) 16.2 L Fannin % (Auto) 5.4 Eos % (Auto) 1.0 [...] Sl. Cloudy Urine pH 8.0 Ur Specific [place] 1.015 Urine Protein 15 H Urine Glucose [...] 21:15 EST Reading Location ID and State: [employer] , Service support , Cervical Spine CT 01/15/23 20:40 IMPRESSION: No acute fracture or subluxation. Electronically Signed: Taj Smith MD at 21:31 EST Reading Location ID and State: [employer] , Service support , Facial/Sinus 01/15/23 20:40 IMPRESSION: Normal unenhanced CT of the facial bones. Acute right sphenoid sinusitis. Electronically Signed: Taj Smith MD at 21:20 EST Reading Location ID and State: [employer] , Service support , Hand X-Ray 01/15/23 20:45 IMPRESSION: No acute fracture or dislocation Electronically Signed: Taj Smith MD at 21:34 EST Reading Location ID and State: [employer] , Service support , Discharge Plan [...] Provider] - Disposition Disposition: [facility] What to do if you have Problems For any increased pain, shortness of breath, bleeding, nausea or vomiting, chestpain, or any unexpected problems, contact your Primary Care Provider. Call [facility] ([phone]) or report to the closest Emergency Room. Call 911 if necessary. 01/15/232228 <Electronically signed by Johnathon Sy> Cosigner Signature (if applicable): CC: Dr. Mariann Trent MD ~ Signed [facility] Work Phone: 1(346) 250-599012-09-2023 Discharge summary Author Johnathon Richardson [facility] January 15, 2023 10:29pm Note Date/Time January 15, 2023 8 :19pm [facility] Medical Records Department [address] [place] [address] [place] [address] Emergency Department Summary 01/15/23 MR#: [id number] Acct: [id number] Name: MARK MARTIN Rep #:[id number] : 1950 72 From: Johnathon Sy PCP: [...] she was able to get herself up. [facility] Medical History Afib Diabetes HTN (hypertension) Home [...] clinician: N/A This note was generated with XunLight dictation software. It may contain incorrectwords, spelling, [...] 75.9 H Lymph % (Auto) 16.2 L Fannin % (Auto) 5.4 Eos % (Auto) 1.0 [...] Sl. Cloudy Urine pH 8.0 Ur Specific [place] 1.015 Urine Protein 15 H Urine Glucose [...] 21:15 EST Reading Location ID and State: [facility] [facility] , Service support , Cervical Spine CT 01/15/23 20:40 IMPRESSION: No acute fracture or subluxation. Electronically Signed: Taj Smith MD at 21:31 EST Reading Location ID and State: [facility] , Service support , Facial/Sinus 01/15/23 20:40 IMPRESSION: Normal unenhanced CT of the facial bones. Acute right sphenoid sinusitis. Electronically Signed: Taj Smith MD at 21:20 EST Reading Location ID and State: [facility] [employer] [facility] , Service support , Hand X-Ray 01/15/23 20:45 IMPRESSION: No acute fracture or dislocation Electronically Signed: Taj Smith MD at 21:34 EST , Discharge Plan Triage Chief Complaint: Fall [...] Provider] - Disposition Disposition: [facility] What to do if you have Problems For any increased pain, shortness of breath, bleeding, nausea or vomiting, chestpain, or any unexpected problems, contact your Primary Care Provider. Call [facility] ([phone]) or report to the closest Emergency Room. Call 911 if necessary. 01/15/232228 <Electronically signed by Johnathon Sy> Cosigner Signature (if applicable): CC: Dr. Mariann Trent MD ~ Signed [facility] Work Phone: [phone] 807-153406-18-2023 Hospital Discharge instructions Patient Education 07/25/2022 09:48:32 Coronary Artery Bypass Grafting, Xvfu-uh-Bmyd Coronary Artery Bypass Grafting Coronary artery bypass [...] thinners, vitamins, herbs, eye drops, creams, and efmm-jfo-afzupns medicines. Any problems you or family members [...] eating light meals or foods, such as: ?[place]. ?Cereal. 6 hours before the procedure stop drinking milk or drinks that contain milk. 2 hours before the procedure stop drinking clear liquids. Medicines Take kgzk-mwo-osvoqlv and prescription medicines only as told by your doctor. Ask your doctor about: ?Changing or stopping your normal medicines. This is important. ?Taking aspirin and ibuprofen. Do not take these medicines unless your doctor tells you to take them. ?Taking xafz-hdx-bmrahxl medicines, vitamins, herbs, and supplements. General instructions [...] 01/29/2014 Document Revised: 10/03/2018 Document Reviewed: 10/03/2018 [employer] Patient Education 2020 [employer]. 07/25/2022 09:48:16 Hypertension, Adult, Hfbv-iu-Ynec Hypertension, Adult Hypertension is another name for [...] your doctor. This is important. Medicines Take ipck-ebs-paitsbx and prescription medicines only as told by [...] 07/12/2008 Document Revised: 10/04/2018 Document Reviewed: 10/04/2018 [employer] Patient Education 2020 [employer]. Follow Up Care 07/15/2022 18:16:41 With:CHELITA GAMEZ APRN-STEREOTYPE CASTER Address: [address] [facility] [place] [address] [phone] When: Unknown With:MAURY CASTELLANOS MD, Thoracic Service, Vascular Service Address: [address] [place] [address] [address] [facility] [place] [address]- [phone] When:08/02/2022 15:00:00 Comments:This is your post-hospital follow-up appointment. You need to get a chest x-ray & labwork an hour (2:00) at the hospital before the appointment. [facility] 06-18-2023 Note Discharge Instructions Thank you for allowing [facility] to assist you with your healthcare needs. The following is importantdischarge information regarding your hospital visit. Your Care Team CHELITA GAMEZ [facility] Your Diagnosis Asthenia HTN (hypertension) [...] if you have any questions or concerns [phone] CODI Anderson. Scheduled Follow-Up Appointments Appointment Type When With Where Contact InformationCV Procedure - [phone] C[facility] OV Post Op 08/02/2022 03:00 PM EDT MAURY CASTELLANOS MD [facility] Cardiothoracic Surgery CV OV 08/13/2022 09:45 AM EDT [facility] [place] CVC Follow Up Appointments Follow Up with MAURY CASTELLANOS MD, Thoracic Service, Vascular Service When 08/02/2022 03:00 PM EDT Why: This is your post-hospital follow-up appointment. You need to get a chest x-ray & labwork an hour (2:00) at the hospital before the appointment. Where: [address] [facility] [place] [address] [phone] Follow Up with CHELITA GAMEZ When Where: [address] [facility] [place] [address]- [phone] The Following Activity and Diet Have Been [...] of CABG Duration: 3 Days Pickup at [facility] 1811 Changed amiodarone (amiodarone 200 mg oral tablet) 1 tab(s) by mouth Two (2) times a day Pickup at [facility] 1811 Unchanged acetaminophen (Tylenol Extra Strength 500 mg oral tablet) 2 tab(s) by mouth Every 8 hours as needed for as needed for pain Unchanged amLODIPine (Norvasc 10 mg oral tablet) 1 tab(s) by mouth Once a day Duration: 90 Days Pickup at [facility] 1811 Unchanged aspirin (aspirin 81 mg oral delayed release tablet) 1 tab(s) by mouth Every day Unchanged atorvastatin (atorvastatin 40 mg oral tablet) 1 tab(s) by mouth Once a day Pickup at [facility] 1811 Unchanged calcium-vitamin D (calcium-vitamin D 600 [...] a day Duration: 90 Days Pickup at [facility] 1811 Unchanged hydrALAZINE (hydrALAZINE 10 mg oral tablet) 1 tab(s) by mouth Three (3) times a day Pickup at [facility] 1811 Unchanged labetalol (labetalol 100 mg oral tablet) 1 tab(s) by mouth Two (2) times a day Duration: 90 Days Pickup at [facility] 1811 Unchanged multivitamin with minerals (Green Source Multivitamin & Minerals oral tablet) 1 tab(s) by mouth Every day Unchanged polyethylene glycol 3350 (MiraLax oral powder for reconstitution) 17 gram(s) by mouth Once a day as needed for Constipation Unchanged valsartan (valsartan 160 mg oral tablet) 1 tab(s) by mouth Two (2) times a day Duration: 30 Days Pickup at [facility] 1811 Unchanged warfarin (warfarin 2.5 mg oral tablet) 1 tab(s) by mouth Every day Duration: 6 week(s) Pickup at [facility] 181 Pharmacy Information [facility] 1811: [address] [place], [place] [phone] Please take this list to your next doctor s visit. Bring all medications you take, including over the counter medications, herbals and other supplements with you to your doctor s visit. Patients and families are reminded to discard old lists and to update any records with all medication providers or retail pharmacies. Medication Leaflets amiodarone (oral) (Yaakov gimenez) Pacerone What is the most important information [...] products. Avoid taking an herbal supplement containing Hannah's wort. Amiodarone could make you sunburn more [...] may report side effects to FDA at 4-063-TRS-2774. What other drugs will affect amiodarone? Sometimes [...] can affect amiodarone. This includes prescription and fnzb-nig-xvjgwss medicines, vitamins, and herbal products. Not all [...] to ensure that the information provided by [employer]. ('[employer]') is accurate, up-to-date, and complete, but no guarantee is made to that effect. Drug information contained herein may be time sensitive. [employer]) information has been compiled for use by healthcare practitioners and consumers in the [place] and therefore [employer]) does not warrant that uses outside of the [place] are appropriate, unless specifically indicated otherwise. [employer] drug information does not endorse drugs, diagnose patients or recommend therapy. [employer] drug information isan informational resource designed to [...] effective or appropriate for any given patient. [facility] does not assume any responsibility for any aspect of healthcare administered with the aid of information [facility] provides. The information contained herein is not intended to cover all possible uses, directions, precautions, warnings, drug interactions, allergic reactions, or adverse effects. If you have questions about the drugs you are taking, check with your doctor, nurse or pharmacist. Copyright 8973-1324 [facility] [employer]. Version: 7.01. Revision Date: 12/13/2017. carbamazepine (oral) [...] may report side effects to FDA at 4-587-LSM-8774. What other drugs will affect carbamazepine? Sometimes [...] or stop using. This includes prescription and piiy-xnx-vjvcxgt medicines, vitamins, and herbal products. Not all [...] to ensure that the information provided by [employer]. ('[employer]') is accurate, up-to-date, and complete, but no guarantee is made to that effect. Drug information contained herein may be time sensitive. [employer] information has been compiled for use by healthcare practitioners and consumers in the [place] and therefore [employer] does not warrant that uses outside of the [place] are appropriate, unless specifically indicated otherwise. [employer] drug information does not endorse drugs, diagnose patients or recommend therapy. [employer] drug information isan informational resource designed to [...] effective or appropriate for any given patient. [employer] does not assume any responsibility for any aspect of healthcare administered with the aid of information [employer] provides. The information contained herein is not intended to cover all possible uses, directions, precautions, warnings, drug interactions, allergic reactions, or adverse effects. If you have questions about the drugs you are taking, check with your doctor, nurse or pharmacist. Copyright 7038-6025 [employer]. Version: 14.01. Revision Date: 02/05/2019. warfarin (oral) (WAR far in) Coumadin, Noni What is the most important information I [...] when used with warfarin. Tell your doctor aboutall medicines you have recently used. Avoid making [...] may report side effects to FDA at 4-049-NIU-7201. What other drugs will affect warfarin? Many drugs (including some tlah-huk-lhnbuxz medicines and herbal products) can affect your [...] echinacea, garlic, ginkgo biloba, ginseng, goldenseal, or [place]'s wort. This list is not complete and many other drugs can interact with warfarin. This includes prescription and bkpt-ppv-akhaoio medicines, vitamins, and herbal products. Give a [...] to ensure that the information provided by [employer]. ('[employer]') is accurate, up-to-date, and complete, but no guarantee is made to that effect. Drug information contained herein may be time sensitive. [employer] information has been compiled for use by healthcare practitioners and consumers in the [place] and therefore [employer]) does not warrant that uses outside of the [place] are appropriate, unless specifically indicated otherwise. [employer] drug information does not endorse drugs, diagnose patients or recommend therapy. [employer] drug information isan informational resource designed to [...] effective or appropriate for any given patient. [employer] does not assume any responsibility for any aspect of healthcare administered with the aid of information [employer] provides. The information contained herein is not intended to cover all possible uses, directions, precautions, warnings, drug interactions, allergic reactions, or adverse effects. If you have questions about the drugs you are taking, check with your doctor, nurse or pharmacist. Copyright 7471-5831 [employer]. Version: 22.01. Revision Date: 10/21/2016. labetalol (oral/injection) [...] eyes). Severe diz (more content not included)... [facility] Note Date of Service 07.22.22 Chief Complaint weakness Subjective 72-year-old female with past medical history significant for hypertension, hyperlipidemia, mitral valve prolapse, COPD, renal artery stenosis, CVA with balance issues, depression, seizures, tobacco use, CAD- CABG x3, Postoperative atrial fibrillation anticoagulated with warfarin. Patient originally presented to [facility] emergency department on 06/27/2022 after having a syncopal episode at home. She was transferred to [facility] for NSTEMI. Underwent left heart cath on [...] 36.1(JUL 22 07:32) 36.1(JUL 22 07:32) 36.9(JUL 21 17:47) Heart Rate 67(JUL 22 08:51) 67(JUL 22 07:32) 84(JUL 21 20:48) Resp Rate H 26(JUL 22 07:32) 18(JUL 21 17:47) H 26(JUL 22 06:25) SBP 132(JUL 22 13:25) 117(JUL 21 22:21) H 162(JUL 22 05:55) DBP 86(JUL 22 13:25) 70(JUL 21 22:21) H 90(JUL 21 17:47) Physical Exam General: No acute distress. [...] by DUSTIN CHAVIRA on 07/22/2022 01:48 PM [facility]-13[facility]2023 Note Date of Service 07/20/2022 Chief Complaint Weakness Subjective 72-year-old female with past medical history significant for hypertension, hyperlipidemia, mitral valve prolapse, COPD, renal artery stenosis, CVA with balance issues, depression, seizures, tobacco use, CAD- CABG x3, Postoperative atrial fibrillation anticoagulated with warfarin. Patient originally presented to [facility] emergency department on 06/27/2022 after having a syncopal episode at home. She was transferred to [facility] for NSTEMI. Underwent left heart cath on [...] inpatient Rehab. She was subsequently admitted to [facility]. Patient is progressing well with therapy [...] by INGA MONTANEZ on 07/20/2022 01:06 PM [facility] Evaluation + Plan noteExtracted from: Title:History and Physical Author:INGA MONTANEZSTEREOTYPE CASTER Date:07/16/22 1. Asthenia 2. HTN (hypertension) 3. [...] Scheduled Provider: Location:[facility] Appointment Type:CV Procedure - [facility] Echo Appointment Date:08/02/2022 03:00:00 PM Scheduled Provider:MAURY CASTELLANOS MD Location:[facility] Appointment Type:CTS OV Post Op Appointment Date:08/13/2022 09:45:00 AM Scheduled Provider: Location:[facility] Appointment Type:CV OV Future Scheduled Tests Laboratory* Basic Metabolic Panel 07/17/22 * Basic Metabolic Panel 07/19/22 * Complete Blood Count 07/17/22 Radiology* XR Chest 2 Views (PA & Lateral) 08/02/22 [facility] 06-09-2023 Note Date of Service 07/16/22 Chief Complaint Weakness History of Present Illness 72-year-old female with past medical history significant for hypertension, hyperlipidemia, mitral valve prolapse, COPD, renal artery stenosis, CVA with balance issues, depression, seizures, tobacco use, CAD- CABG x3, Postoperative atrial fibrillation anticoagulated with warfarin. Patient originally presented to [facility] emergency department on 06/27/2022 after having a syncopal episode at home. She was transferred to [facility] for NSTEMI. Underwent left heart cath on [...] inpatient Rehab. She was subsequently admitted to [facility]. On exam today, pt denies any [...] arthroplasty: 02/21/20 PFT - Pulmonary function tests: 01/25/20 Echocardiogram: 02/15/17 Holter monitor: 01/24/17 Cardiovascular stress [...] Never., 12/29/2018 Employment/School Status: Retired. 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 Safe place to go: Yes. Lives In: Mobile home, 3-4 steps to get in door has rails on both side. Current Home Treatments Blood Pressure monitoring, anais, karlo gettingramp put in., 07/15/2022 Domestic Concerns: Denies. Living situation: Home with assistance. Primary Flight Teacher: self lives with spouse, she has 2 [...] (04/29/20) tetanus/diphth/pertuss (Tdap) adult/adol: 0 unknown unit (10/01/11) varicella virus vaccine: 0 unknown unit (03/11/22) zoster vaccine, inactivated: 0.5 unknown unit (06/05/22) zoster vaccine, inactivated: 0.5 unknown unit (03/11/22) Code Status Code Status - Ordered -- 07/15/22 18:39:00 EDT, Full Code, Constant Order Digitally Signed by INGA MONTANEZ on 07/16/2022 10:39 AM [facility]14[facility]20[facility] Evaluation + Plan note Diagnostic Tests Pending * [facility] Lab Send out (Blood Specimens) 01/20/22 [facility] Evaluation + Plan note Future Appointments Appointment Date:04/27/2021 11:05:00 AM Scheduled Provider:MARIANN TRENT MD Location:[facility] Appointment Type:PC OV Appointment Date:07/15/2021 12:00:00 PM Scheduled Provider: Location:[facility] Appointment Type:CV Procedure - AOH Echo Future Scheduled Tests Laboratory* Thyroid Stimulating Hormone 10/24/20 * Complete Blood Count 10/24/20 * Lipid Profile 10/24/20 * Complete Metabolic Panel 10/24/20 [facility] Evaluation + Plan note Future Scheduled Tests Laboratory* Basic Metabolic Panel 07/17/22 * Complete Blood Count 07/17/22 [facility] Evaluation + Plan note Future Appointments Appointment Date:08/02/2022 03:00:00 PM Scheduled Provider:MAURY CASTELLANOS MD Location:[facility] Appointment Type:CTS OV Post Op Appointment Date:08/04/2022 01:00:00 PM Scheduled Provider:CHELITA GAMEZ Location:[facility] Appointment Type:PC OV TCM 30 Appointment Date:08/13/2022 09:45:00 AM Scheduled Provider: Location:[facility] Appointment Type:CV OV Future Scheduled Tests Laboratory* Basic Metabolic Panel 07/17/22 * Basic Metabolic Panel 07/19/22 * Complete Blood Count 07/17/22 Radiology* XR Chest 2 Views (PA & Lateral) 08/02/22 [facility] Evaluation + Plan note Future Appointments Appointment Date:08/04/2022 01:00:00 PM Scheduled Provider:CHELITA GAMEZ Location:[facility] Appointment Type:PC OV TCM 30 Appointment Date:08/13/2022 09:45:00 AM Scheduled Provider: Location:[facility] Appointment Type:CV OV Appointment Date:08/30/2022 02:15:00 PM Scheduled Provider:MAURY CASTELLANOS MD Location:[facility] Appointment Type:CTS OV Post Op Follow Up Future Scheduled Tests Laboratory* Basic Metabolic Panel 07/17/22 * Complete Blood Count 07/17/22 Radiology* XR Chest 2 Views (PA & Lateral) 08/30/22 [facility] Evaluation + Plan note Future Appointments Appointment Date:01/05/2023 09:30:00 AM Scheduled Provider: [facility] Appointment Type:ACC POC Established Patient Future Scheduled Tests Laboratory* Basic Metabolic Panel 07/17/22 * Complete Blood Count 07/17/22 * Complete Blood Count 08/09/22 * Complete Metabolic Panel 08/09/22 [facility] Evaluation + Plan note Future Appointments Appointment Date:03/25/2023 10:00:00 AM Scheduled Provider: [facility] Appointment Type:ACC POC Established Patient Appointment Date:03/25/2023 10:30:00 AM Scheduled Provider: Location:[facility] Appointment Type:CV OV Future Scheduled Tests Laboratory* Basic Metabolic Panel 07/17/22 * Complete Blood Count 07/17/22 * Complete Blood Count 08/09/22 * Complete Metabolic Panel 08/09/22 [facility] Evaluation + Plan note Future Appointments Appointment Date:04/21/2023 10:00:00 AM Scheduled Provider: [facility] Appointment Type:ACC POC Established Patient Future Scheduled Tests Laboratory* Basic Metabolic Panel 07/17/22 * Basic Metabolic Panel 04/15/23 * Complete Blood Count 07/17/22 * Complete Blood Count 08/09/22 * Complete Blood Count 04/15/23 * Complete Metabolic Panel 08/09/22 [facility] Evaluation + Plan note Future Appointments Appointment Date:04/21/2023 10:00:00 AM Scheduled Provider: Location:[facility] Appointment Type:ACC POC Established Patient Appointment Date:05/27/2023 10:30:00 AM Scheduled Provider: [facility]oint[facility] Type:CV Hospital Follow Up Future Scheduled Tests Laboratory* Basic Metabolic Panel 07/17/22 * Basic Metabolic Panel 04/15/23 * Complete Blood Count 07/17/22 * Complete Blood Count 08/09/22 * Complete Blood Count 04/15/23 * Complete Metabolic Panel 08/09/22 [facility] Evaluation note* Diagnosis Onset Date Resolution Status Abrasion of left ring finger acute Chronic anticoagulation acut e Contusion of face acute Multiple falls acute Unsteady gait acute 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, 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 Hypertension [facility] Work Phone: Evaluation note* Diagnosis Onset Date Resolution Status Admit Date Acute ischemic stroke acute Sep 2024 12:15am Atrial fibrillation acute 2024 12:15am Brain TIA acute October 12:15am Depression acute October 12:15am GERD (gastroesophageal reflu x disease) acute October 23, 2024 12:15am History of transcatheter aortic valve replacement (TAVR) July 09, 2022 acute October 23, 2024 12:15am Hx of CABG July 09, 2022 acute October 23, 2024 12:15am Hyperlipidemia acute October 23, 2024 12:15am Left leg weakness acute Octemb er 2024 12:15am Subtherapeutic anticoagulation acute October 23, 2024 12:15am Chronic pain of left knee chronic October 23, 2024 12:15am COPD (chronic obstructive pulmonary disease) chronic October 12:15am [facility] Work Phone: History and physical note Author Forrest Bonilla [facility] Note Date/Time October 23, 2024 12:15am [facility] Medical Records Department [address] [place] [address] History & Physical Exam 10/23/24 0002 MR#: [id number] Acct: [id number] Name: MARK MARTIN Rep #:[id number] : 1950 74 From: Forrest Bonilla MD PCP: Dr. Savage Gilliam MD Status:REG ER Location: ED HPI - General General Date of Admission: 10/23/24 Date of Service: 10/23/24 Chief Complaint: Left leg weakness HPI Narrative MARK MARTIN, is a 74 F who presents to the emergency room with chief complaint ofleft leg weakness. Patient was brought in by her son this evening to be evaluated after they were shopping at a [employer] store and she exhibited left leg weakness. According to the patient she has had this left leg weakness for the past 3 months and she has status post left knee arthroplasty as well. Further history was obtained by the ER physician when he was speaking with her son who says she had an episode of dizziness in the store and some facial drooping(laterality was not known) but that did not last very long. It is unclear when her last known well was since she has had this left leg weakness for the past 3 months. Patient does have significant past medical history of stroke 25 years ago approximately with no significant residual neurologic deficits. She also has a history of aortic valve replacement with bioprostheticvalve. Patient does continue to smoke and is on warfarin for A-fib. Patient isfeeling better since arrival to the emergency room and has no current new neurologic deficits at this time. Laboratory studies reveal white blood cell count of 5.7, hemoglobin 13.5, hematocrit 39.7, platelets 177, INR 1.2, sodium 138, potassium 4.2, chloride 104, bicarb 23.9, BUN 11, creatinine 0.57, glucose 131, x-ray knee shows intact left knee arthroplasty, brain CT shows 1. Acute infarct right anterior temporal lobe, #2 advanced small vessel ischemic changes with scattered foci of old lacunar infarcts, #3 no acute hemorrhage or mass effect. Despite not having new neurologic deficits at present time and having positive findings on CT scan patient will be admitted to the progressive care unit and worked up further for stroke. Patient does wish to be full code at this time. [facility] Medical History (Updated 10/22/24 @ 23:[address] 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 Atrial fibrillation Rheumatic fever Mitral prolapse Right renal artery stenosis 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 Anemia Depression Rheumatoid arthritis GERD (gastroesophageal reflux disease) COPD (chronic obstructive pulmonary disease) Deafness in left ear Myocardial infarct Contusion of face Unsteady gait Abrasion of left ring finger Diabetes HTN (hypertension) Home Medications ?Medication ?Instructions ?Recorded ?Last Taken ?Type multivitamin (Daily Multi-Vitamin 1 tab PO DAILY 02/11 Unknown History tablet) aspirin 81 mg chewable tablet 81 mg PO BREAKFAST #1 TA B 02/13/23 Unknown Rx amlodipine 10 mg tablet 10 mg PO QDAY 01/19/24 Unkno wn History atorvastatin 40 mg tablet 40 mg PO QHS 02/15/24 Unknow n History carbamazepine 200 mg tablet 400 mg PO Q12H 02/15/24 Un known History valsartan 160 mg tablet 160 mg PO BID #180 tabs 04/03 Unknown Rx carvedilol 25 mg tablet 25 mg PO BID #180 tabs 06/13 Unknown Rx hydralazine 100 mg tablet 100 mg PO TID #270 TABLETS 0 06/14/24 Unknown Rx warfarin 4 mg tablet 4 mg PO DAILY 10/22/24 Unkno wn History Allergy/AdvReac Type Severity Reaction Status Date / Time mayonnaise Allergy Severe Anaphylaxis Verified 10/22/24 21:15 ibuprofen Allergy Rash Verified 10/22/24 21:15 naproxen (From Naprosyn) Allergy Rash Verified 10/22/24 21:15 codeine AdvReac Vertigo Verified 10/22/24 21:15 Family History Brother Cancer CAD (coronary artery disease) Diabetes Heart disease Mother Diabetes Hypertension Heart disease Father Hypertension Myocardial infarction Heart disease Son Hypertension Surgical History History of stapedectomy Hx of hernia repair Hx of total knee arthroplasty (02/21/20) Hx of CABG (07/09/22) S/P left knee arthroscopy Aortic valve replaced Social History Smoking Status: Light Smoker (<10/day) Tobacco: How many years used: 20 ROS Constitutional Constitutional: Denies chills or fever(s) Eyes Eyes: Denies blurry vision or change in vision ENT HEENT: Denies abnormal hearing or dysphagia Cardiovascular Cardiovascular: Denies chest pain or syncope Respiratory/Chest Respiratory/Chest: Denies cough or shortness of breath at rest Gastrointestinal Gastrointestinal: Denies abdominal pain, diarrhea, melena, nausea or vomiting Genitourinary Genitourinary: Denies dysuria Musculoskeletal Musculoskeletal: Reports joint stiffness and muscle weakness; Denies back pain or extremity pain Integumentary Integumentary: Denies dry skin Neurologic Neurologic: Reports dizziness and focal weakness; Denies abnormal speech or confusion Psychiatric Psychiatric: Denies anxiety Vital Signs Vital Signs Vital Signs: 10/22/24 21:15 10/22/24 21:26 10/22/24 21:46 Temperature 98 F Temperature Source Temporal Pulse Rate 82 74 Respiratory Rate 18 18 Respiratory Effort Normal Non-Labored Respiratory Pattern Normal Blood Pressure 145/100 H 139/94 H Blood Pressure Mean 115 109 Pulse Ox 99 99 Oxygen Delivery Method Room Air Room Air 10/22/24 23:00 Temperature Temperature Source Pulse Rate 86 Respiratory Rate 18 Respiratory Effort Respiratory Pattern Blood Pressure 167/91 H Blood Pressure Mean 116 Pulse Ox 99 Oxygen Delivery Method Room Air Weight Weight: 121 lb 0.54 oz Body Mass Index (BMI) 22.8 Physical Exam Const alert, oriented x3, no apparent distress and well nourished General Appearance: cooperative HEENT normocephalic and head/scalp atraumatic Eyes PERRL and EOMs intact bilaterally Neck no lymphadenopathy Lymph Lymphatic: no lymphadenopathy noted Resp normal respiratory effort, normal air movement and clear to auscultation bilaterally Cardio regular rate, S1 normal heart sound and S2 normal heart sound Rhythm: abnormal rhythm irregularly irregular Heart Sounds: murmur systolic GI normal to inspection, nondistended, normoactive bowel sounds Extremity normal capillary refill and no clubbing, cyanosis or edema Skin General Skin Exam: no breakdown and turgor normal Neuro CN's II-XII intact bilaterally, no focal motor deficits and no sensory deficits noted Neuro Narrative: Slight weakness in left leg as compared to right Motor Exam: strength 5/5 throughout Psych thought process normal, cooperative and affect normal Results Lab / Micro Data 10/22/24 21:45 10/22/24 21:45 Labs: Laboratory Results - last 24 hr 10/22/24 21:45: WBC 5.7, RBC 4.20, Hgb 13.5, Hct 39.7, MCV 94.5, MCH 32.1 H, MCHC 34.0, RDW Std Deviation 43.9, RDW Coeff of Geena 12.7, Plt Count 177, MPV 9.9, Immature Gran % (Auto) 0.500, Neut % (Auto) 60.2, Lymph % (Auto) 28.7, Fannin% (Auto) 9.3, Eos % (Auto) 0.3, Baso % (Auto) 1.0, Absolute Neuts (auto) 3.4, Absolute Lymphs (auto) 1.64, Nucleated RBC % 0, PT 15.4 H, INR 1.2, Sodium 138, Potassium 4.2, Chloride 104, Carbon Dioxide 23.9, Anion Gap 10, BUN 11, Creatinine 0.57 L, Estim Creat Clear Calc 45.85 L, Est GFR (MDRD) Non-Af 95, BUN/Creatinine Ratio 19.4, Glucose 131 H, Calcium 9.1 Rhythm Strip Rhythm Strip: A-fib Rate: 85 Ectopy: None Imaging Radiology Impression Brain CT 10/22/24 21:50 IMPRESSION: 1. Acute infarct involving the anterior right temporal lobe. 2. Advanced chronic small-vessel ischemic changes with numerous scattered foci of old lacunar infarcts in the bilateral cerebral and cerebellar hemispheres. 3. No acute hemorrhage, extra-axial collection, or mass-effect. Reading Location: [facility] Knee X-Ray 10/22/24 21:50 IMPRESSION: Intact left knee arthroplasty. Reading Location: [facility] Assessment & Plan Assessment/Plan (1) Subtherapeutic anticoagulation: (2) Chronic pain of left knee: (3) Left leg weakness: (4) Acute ischemic stroke: (5) Brain TIA: (6) Hx of CABG: (7) History of transcatheter aortic valve replacement (TAVR): (8) Hyperlipidemia: (9) Atrial fibrillation: (10) Depression: (11) GERD (gastroesophageal reflux disease): (12) COPD (chronic obstructive pulmonary disease): PLAN: Plan 1 acute infarct right anterior lobe by CT scan?[facility], initiate neurologic evaluations every 4 hours and order MRI/MRA head and neck in the a.m. consult teleneurology. Patient is anticoagulated on warfarin at this time and will continue to monitor INR as she was subtherapeutic and therefore will need Lovenox until she is therapeutic again. Will follow stroke protocol for management of hypertension 2. Left leg weakness?chronic status post left knee arthroplasty will order PT consult to evaluate and treat for strength 3. Hyperlipidemia?monitor fasting lipid panel continue statin medication 4. Atrial fibrillation?anticoagulation and rate control 5. Depression?mood stable continue routine home medications 6 smoking?cessation strongly encouraged 7. COPD?continue inhaler medications 8. DVT prophylaxis?patient is on anticoagulation 9. CODE STATUS full code verified Charges/Coding Visit Charges Inpatient E&M: 35650 Init Hosp L2 10/23/24 0015 <Electronically signed by Forrest Bonilla MD> Cosigner Signature (if applicable): CC: Dr. Savage Gilliam MD; Dr. Forrest Bonilla MD~ Signed [facility] Work Phone: Hospital course Narrative No data available for this section [facility] Hospital Discharge instructions No data available for this section [facility] Hospital Discharge instructions Additional Instructions Your Coumadin [...] pressure very difficult to manage. Do not fill/grape picker the HCTZ that was previously ordered at this time.[facility] Work Phone: Progress note No data available for this section [facility] Reason for referral (narrative)No reason for referral information [facility] Work Phone: Chief Complaint and Reason for [...] CABG February 15, 2024 2: 58pm Hyperlipidemia Magda 8th, 2025 2: 58pm Renal artery stenosis February 15, 2024 2:58pm HTN (hypertension) February 15, 2024 2: 58pm Chief Complaint Admit Date weakness October 23, 2024 12:02am ACUTE ISCHEMIC STROKE October 23 12:15am Reason for Visit Admit Date Acute ischemic stroke October 23 12:15am Atrial fibrillation October 23, 2024 12:15am Brain TIA October 23, 2024 12:15am Depression October 23, 2024 12:15am GERD (gastroesophageal reflux disease) S [facility] 2024 12:15am History of transcatheter aortic valve re placement (TAVR) October 23, 2024 12:15am Hx of CABG October 23, 2024 12:15am Hyperlipidemia October 23, 2024 12:15am Left leg weakness October 23, 2024 12:15am Subtherapeutic anticoagulation October 23, 2024 12:15am Chronic pain of left knee October 12:15am COPD (chronic obstructive pulmonary dise ase) October 23, 2024 12:15am Chief Complaint Admit Date weakness October 23, 2024 12:02am ACUTE ISCHEMIC STROKE October 23 12:15am ACUTE ISCHEMIC STROKE October 24 10:26am ACUTE ISCHEMIC STROKE October 25 12:30pm Reason for Visit Admit Date Acute ischemic stroke October 23 12:15am Atrial fibrillation October 23, 2024 12:15am Brain TIA October 23, 2024 12:15am Chronic pain of left knee October 12:15am COPD (chronic obstructive pulmonary dise ase) October 23, 2024 12:15am Depression October 23, 2024 12:15am GERD (gastroesophageal reflux disease) S [facility] 2024 12:15am History of transcatheter aortic valve re placement (TAVR) October 23, 2024 12:15am Hx of CABG October 23, 2024 12:15am Hyperlipidemia October 23, 2024 12:15am Left leg weakness October 23, 2024 12:15am Subtherapeutic anticoagulation October 23, 2024 12:15am Advance Directives No Advanced Directives Records Found Advance Directive Response Recorded Date/ Time Living Will No January 15 8:14pm Power of Land Management Forester No January 15, 2023 8:14pm Advance Directive Response Recorded Date/ Time Living Will No January 15 11:40pm Power of Land Management Forester No January 15, 2023 11:40pm Advance Directive Response Recorded Date/ Time Living Will No January 21 023 9:07am Power of Land Management Forester No January 21, 2023 9:07am Advance Directive Response Recorded Date/ Time Living Will Yes December 29 10:34pm Power of Land Management Forester Yes December 30, 2023 10:34pm Name of Medical Power of Land Management Forester GURVINDER ABBASI December 30, 2023 10:34pm Living Will Yes January 16 1:37pm Power of Land Management Forester Yes January 17, 2024 1:37pm Name of Medical Power of Land Management Forester RICKY ABBASI January 17, 2024 1:37pm Living Will Yes February 06 10:10am Power of Land Management Forester Yes February 07, 2024 10:10am Name of Medical Power of Land Management Forester gurvinder February 07, 2024 10:10am Advance Directive Response Recorded Date/ Time Do you have a Healthcare Power of Land Management Forester? Yes October 22, 2024 9:26pm Advance Directive Response Recorded Date/ Time Do you have a Healthcare Power of Land Management Forester? Yes October 23, 2024 1:45am Name of Medical Power of Land Management Forester Ricky Abbasi October 23, 2024 1:45am Summary Purpose Family History Relationship Condition Age at Onset Recorded Date/T louis brother Malignant neoplasm Unknown Coronary artery disease Unknown Diabetes mellitus Unknown Cardiac disease Unknown mother Diabetes mellitus Unknown Hypertension Unknown father Hypertension Unknown Myocardial infarction Unknown son Hypertension Unknown No Family History Records Found Additional Source Comments Care Team (unrecognized sect ion and content) Care Team Personnel Name: Mary Lane Clerrodolfo Hartley PT Position: P3 Scheduling - Milk Pasteurizer Advanced Member Role: Other Name: CHELITA GAMEZ APRN-STEREOTYPE CASTER Position: P4 Advanced Practice Nurse Member Role: Primary Care Physician Address: Address: [address] [place] [address]- [place] Name: MIKE KEARNEY MD Position: P4 Physician - Cardiology Member Role: Soft Sugar Supervisor Address: Address: [address] [place] [address] [id number] [facility] [place] [address]- Care Team Related Persons Name: NONE, NONE [...] Prov ider Active Dr. Axel Javier , Other Provider Active Team Status: Inactive Member Role Status Dates Dr. Mariann Trent MD Primary Care Provider Active Dr. Johnathon Richardson DO Emergency Provider Active Dr. Eladio Almanza MD Admit Provider, Other Provider Active Dr. Rosalva Ortez MD Attending Provider Active Dr. Axel Javier , Other Provider Active Team Status: Active Member Role Status Dates Dr. Mariann Trent MD Family Provider Active Chelita Gamez FINANCIAL ANALYSIS CONSULTANT, FINANCIAL ANALYSIS CONSULTANT-C Primary Care Provider Activ e Team Status: Active Member Role Status Dates Dr. Mariann Trent MD Primary Care Provider Active Dr. Ozzy Santos MD Attending Provider Active Dr. Eladio Almanza MD Referring Provider Active Team Status: Inactive Member Role Status Dates Dr. Tod Ghotra DO Emergency Provider Active Chelita Gamez FINANCIAL ANALYSIS CONSULTANT, FINANCIAL ANALYSIS CONSULTANT-C Primary Care Provider Activ e Team Status: Active Member Role Status Werner Gilliam MD Primary Care Provider Active Team Status: Inactive Member Role Status Werner [...] 2024 End: April 05, 2024 Rob Lieberman FINANCIAL ANALYSIS CONSULTANT, FINANCIAL ANALYSIS CONSULTANT-C Attending Provider Active Start: April 05, 2024 End: April 05, 2024 Rob Lieberman FINANCIAL ANALYSIS CONSULTANT, FINANCIAL ANALYSIS CONSULTANT-C Referring Provider Active Start: April 05, 2024 End: April 05, 2024 Team Status: Active Member Role/Relationship Status Werner Gilliam MD Primary Care Provider Active Team Status: Active Member Role/Relationship Status Werner Gilliam MD Primary Care Provider Active St art: October 18, 2024 Savage Gilliam MD Attending Provider Active Start : October 18, 2024 Team Status: Active Member Role/Relationship Status Werner Gilliam MD Primary Care Provider Active St art: October 23, 2024 Dr. Ron Sesay MD Emergency Provider Active Start: October 23, 2024 Dr. Forrest Bonilla MD Attending Provider Active Start: October 23, 2024 Team Status: Active Member Role/Relationship Status Werner Gilliam MD Primary Care Provider Active St art: October 23, 2024 Dr. Ron Sesay MD Emergency Provider Active Start: October 23, 2024 Dr. Forrest Bonilla MD Admit Provider Active Star t: October 23, 2024 Dr. Forrest Bonilla MD Attending Provider Active Start: October 23, 2024 Team Status: Active Member Role/Relationship Status Werner Gilliam MD Primary care physician Active Team Status: Inactive Member Role/Relationship Status Werner Gilliam MD Primary care physician Active S tart: October 18, 2024 End: October 18, 2024 Savage Gilliam MD Attending physician Active Star t: October 18, 2024 End: October 18, 2024 Team Status: Active Member Role/Relationship Status Werner Gilliam MD Primary care physician Active S tart: October 23, 2024 Dr. Ron Sesay MD Emergency Depart ment Physician Active Start: October 23, 2024 Dr. Forrest Bonilla MD Attending physician Active Start: October 23, 2024 Team Status: Inactive Member Role/Relationship Status Werner Gilliam MD Primary care physician Active S tart: October 23, 2024 End: October 25, 2024 Dr. Ron Sesay MD Emergency Depart ment Physician Active Start: October 23, 2024 End: October 25, 2024 Dr. Forrest Bonilla MD Admitting physician Active Start: October 23, 2024 End: October 25, 2024 Dr. Forrest Bonilla MD Nurse Practitioner Active Start: October 23, 2024 End: October 25, 2024 Dr. Rosalva Ortez MD Attending physician Active Start: October 23, 2024 End: October 25, 2024 Team Status: Active Member Role/Relationship Status Werner Gilliam MD Primary care physician Active S tart: October 23, 2024 Dr. William White MD Attending physician Active Start: October 23, 2024 Team Status: Active Member Role/Relationship Status Dates Savage Gilliam MD Primary care physician Active S tart: October 24, 2024 Dr. Ron Sesay MD Emergency Depart ment Physician Active Start: October 24, 2024 Dr. Forrest Bonilla MD Admitting physician Active Start: October 24, 2024 Dr. Forrest Bonilla MD Nurse Practitioner Active Start: October 24, 2024 Dr. Rosalva Ortez MD Attending physician Active Start: October 24, 2024 Dr. Rosalva Ortez MD Nurse Practitioner Active Start: October 24, 2024 Team Status: Active Member Role/Relationship Status Dates Savage Gilliam MD Primary care physician Active S tart: October 25, 2024 Dr. Ron Sesay MD Emergency Depart ment Physician Active Start: October 25, 2024 Dr. Forrest Bonilla MD Admitting physician Active Start: October 25, 2024 Dr. Forrest Bonilla MD Nurse Practitioner Active Start: October 25, 2024 Dr. Rosalva Ortez MD Attending physician Active Start: October 25, 2024 Dr. Rsoalva Ortez MD Nurse Practitioner Active Start: October 25, 2024 INFORMATION SOURCE (unrecogn ized section and content) DATE CREATED AUTHOR 07/22/2023 [facility] [place] DATE CREATED AUTHOR AUTHOR'S ORGANIZ ATION 12/03/2024 [facility] FOR RECORDS PERTAINING TO PATIENTS WHO ARE [...] BE BASED ON THE PRIMARY CLINICAL RECORDS. [facility]. provides no warranty or guarantee of the accuracy or completeness of information in this document.
== END | disposition home or self-care (01) ==
LOC: OPBD 09:32
PROVIDERS: PCP Family Medicine; Referring Provider Family Medicine; Visit Provider Family Medicine
DX: Z78.0 Asymptomatic menopausal state (principal)
CPT/HCPCS: 77080

== ENCOUNTER → 2025-02-05 | Outpatient (CLI) | payer MEDICARE, SELFPAY | END | disposition home or self-care (01) | LOC: PSN 10:50 | PROVIDERS: PCP Family Medicine; Referring Provider Nurse Practitioner Gerontology; Visit Provider Nurse Practitioner Gerontology | DX: I48.92 Unspecified atrial flutter (principal) | CPT/HCPCS: 93225; 93226 ==